=== PATIENT | female | born 1950 | race Caucasian/White ===

== ENCOUNTER → 2016-11-06 | Outpatient (CLI) | payer MEDICARE, BC ==
--- NOTE | 2016-11-07 07:51 | MM ---
Reason for exam: screening (asymptomatic). History: Patient is postmenopausal and is nulliparous. Physical Findings: A clinical breast exam by your physician is recommended on an annual basis and results should be correlated with mammographic findings. MG 3D Screening Mammo W/Cad Bilateral CC and MLO view(s) were taken. The breast tissue is almost entirely fat. Benign calcifications. No significant changes when compared with prior studies. ASSESSMENT: Benign, BI-RAD 2 RECOMMENDATION: Routine screening mammogram of both breasts in 1 year.
== END | disposition home or self-care (01) ==
LOC: RADMAMWWP 08:02
PROVIDERS: ATTEND Family Medicine
DX: Z12.31 Encounter for screening mammogram for malignant neoplasm of breast (principal); Z00.00 Encounter for general adult medical examination without abnormal findings
CPT/HCPCS: 77063; G0202

== ENCOUNTER → 2018-11-16 | Outpatient (CLI) | payer MEDICARE, BC ==
[2018-11-16 11:10] LABS: HCT 40.1 % (34.0-46.0); HGB 13.6 gm/dL (11.4-16.0); MCH 34.1 pg (25.0-35.0); MCV 100.3 fL (80.0-100.0); Mean Platelet Volume 7.5; Platelet Count 339 k/uL (150-450); RDW 13.2 % (11.5-15.5); WBC 7.2 k/uL (3.8-10.6)
[2018-11-16 11:21] LABS: Potassium 4.3 mmol/L (3.5-5.1)
== END | disposition home or self-care (01) ==
LOC: LABPAT 09:27
PROVIDERS: ATTEND Internal Medicine Clinical Cardiac Electrophysiology
DX: Z01.812 Encounter for preprocedural laboratory examination (principal); I42.0 Dilated cardiomyopathy; I50.22 Chronic systolic (congestive) heart failure
CPT/HCPCS: 80051; 82565; 82947; 84520; 85027

== ENCOUNTER 2018-11-23 14:00 | Day surgery (SDC) | payer MEDICARE, BC ==
[2018-11-19 11:22] VITALS: BMI 41.6
[~2018-11-23 14:00] MED LIST: CLINDAMYCIN 600 MG in SODIUM CHLORIDE 0.9% IRRIGATIO 250 ML IRRIGATION ONE; CLINDAMYCIN 900 MG in DEXTROSE 5% IN WATER 50 ML IVPB ONE
[2018-11-23] MEDS: SODIUM CHLORIDE 0.9% 1,000 ML IV SCH ×2 (15:08→18:53)
[2018-11-23] MEDS ORDERED: fentaNYL (PF) 50 MCG/ML 2 ML AMP ONE (15:57)
[2018-11-23] MEDS ORDERED: MIDAZOLAM 2 MG/2 ML VIAL ONE (15:57)
[2018-11-23] MEDS ORDERED: diphenhydrAMINE 50 MG/ML 1 ML VIAL ONE (15:57)
[2018-11-23] MEDS ORDERED: LIDOCAINE 1% INJ 10MG/ML (20 ML MDV) ONE (16:19)
[2018-11-23] MEDS ORDERED: LIDOCAINE 1% INJ 10MG/ML (20 ML MDV) SQ ONE ×4 (16:41→16:58)
[2018-11-23] MEDS ORDERED: ACETAMINOPHEN TAB 325 MG TAB PO PRN (17:37)
[2018-11-23] MEDS ORDERED: ACETAMINOPHEN IV (For NPO) 1,000 MG in EMPTY BAG 1 BAG IVPB ONE (18:00)
[2018-11-23] MEDS: HYDROcodone/APAP 5-325MG 1 EACH TAB PO PRN ×2 (18:46→22:49)
[2018-11-23] MEDS: LACTATED RINGERS 1,000 ML IV SCH (18:53)
[2018-11-23] MEDS: CLINDAMYCIN 900 MG in DEXTROSE 5% IN WATER 50 ML IVPB SCH ×2 (20:28)
[2018-11-23 20:53] VITALS: RESP 18
[2018-11-23] MEDS ORDERED: CLINDAMYCIN 900 MG in DEXTROSE 5% IN WATER 50 ML IVPB SCH ×2 (22:00)
[2018-11-24] MEDS: SODIUM CHLORIDE 0.9% 1,000 ML IV SCH ×2 (02:52→02:55)
[2018-11-24] MEDS: HYDROcodone/APAP 5-325MG 1 EACH TAB PO PRN ×3 (02:55→11:25)
[2018-11-24] MEDS: CLINDAMYCIN 900 MG in DEXTROSE 5% IN WATER 50 ML IVPB SCH ×6 (03:44→15:17)
--- NOTE | 2018-11-24 05:43 | CE ---
CARDIAC ELECTROPHYSIOLOGY REPORT Radha Marin is a 68-year-old female with nonischemic cardiomyopathy with a wide QRS of 144 milliseconds, left bundle branch block morphology. Patient now pacemaker dependent. In 2013, she had severe LV dysfunction, ejection fraction 25% to 30% with class 2 to 3 congestive heart failure with wide QRS and left bundle branch block morphology. A biventricular ICD was implanted with improvement in LV systolic function and heart failure. She presents for biventricular ICD generator change on account of battery at [facility], normal battery depletion. Patient was brought to the EP lab in a fasting state. Written informed consent was obtained prior to the procedure. The left shoulder area was prepped and draped as per protocol and 1% lidocaine was used for local anesthesia. A 4 cm incision was made directly over the previous surgical site and carried down to the level of the pectoralis muscle. A subfascial pocket was made hemostasis was assured. The device was removed from the pocket. A partial capsulectomy was performed. Hemostasis was assured. The new device was implanted. Leads were interrogated. The wound was closed in 3 layers and dressed per protocol. The chronic biventricular generator that was removed was a Medtronic Protecta XT MASTERCAM PROGRAMMER-D, product number [id number], serial number [id number]. The new biventricular ICD generator that was implanted was a Viva XT model number [id number], serial number [id number]. The right atrial lead was a Medtronic model #5076 serial number [id number], 52 cm in length. P waves 2.1 mV, pacing impedance 361 ohms, pacing threshold 1.5 V at 0.5 milliseconds. The RV lead was a Medtronic model #6935, 65 cm in length and serial number [id number]. The patient has no R-waves and is pacemaker dependent now. Pacing impedance 550 ohms, pacing threshold 1 V at 0.5 milliseconds. The LV lead was a unipolar lead model #4396, 78 cm in length and serial number [id number] that was placed via the middle cardiac vein up to the distal lateral vein in the 3 o'clock position ANDORRAN view. Pacing impedance 722 ohms, pacing threshold 1.5 V at 1 millisecond in V1 to RV coil. The patient tolerated the procedure well without any acute complications. The cinefluoroscopy of the leads revealed single coil ICD lead in the RV apex, a screw- in lead in the right atrial appendage and coronary sinus unipolar lead was placed via the middle cardiac vein and then passed into the distal lateral vein with LV tip in the 3 o'clock position ANDORRAN view. The patient tolerated the procedure well without any acute complications. MMODL / IJN: [id number] /
[2018-11-24] MEDS: LACTATED RINGERS 1,000 ML IV SCH (06:18)
[2018-11-24] MEDS ORDERED: METOPROLOL SUCCINATE (ER) 25 MG TAB.ER.24H PO SCH (09:00)
[2018-11-24] MEDS ORDERED: MAGNESIUM OXIDE 400 MG TAB PO SCH (09:00)
[2018-11-24] MEDS ORDERED: SPIRONOLACTONE 25 MG TAB PO SCH (09:00)
[2018-11-24] MEDS ORDERED: ASPIRIN 81 MG PO SCH (09:00)
[2018-11-24] MEDS ORDERED: CHOLECALCIFEROL 1,000 UNIT TAB PO SCH (09:00)
[2018-11-24] MEDS ORDERED: IRBESARTAN 75 MG PO SCH (09:00)
[2018-11-24 11:36] VITALS: BP 122/73; PULSE 81; TEMP 97.4
--- NOTE | 2018-11-24 11:59 | P.DS ---
Providers Attending physician: Rocco You Primary care physician: Arian Hinojosa [facility] Course: Patient is a 68-year-old female with a past medical history of nonischemic cardiomyopathy status post biventricular ICD who is device was at [facility] and presented for a generator change. Yesterday she underwent a successful generator change. She has done well overnight, no acute events. Patient seen and examined resting comfortably in bed. States her pain has been well controlled with the [place]. Denies any chest pain, shortness of breath, orthopnea or PND. She has been up walking around and using the bathroom. No dizziness or lightheadedness. She was able to eat breakfast this morning. Most recent labs from November 16 reviewed, WBC 7.2, hemoglobin 13.6, platelets 339, potassium 4.3, BUN 11, creatinine 0.88 Temperature 97.4F, pulse 81, respirations 18, blood pressure 122/73, oxygen saturation 95% on room air Patient seen and examined resting comfortably in bed, in no acute distress Lungs are clear to auscultation bilaterally, no wheezing crackles or rhonchi Heart is regular, no murmurs or rubs noted No elevated JVD or lower extremity edema Dressing over the device is clean dry and intact Impression Nonischemic cardiomyopathy status post biventricular ICD with successful generator change Plan Continue all cardiac medications Follow-up with the device clinic in 5 days follow up with Dr. You/Tiesha Powell/Xochilt Jones in 3-4 months Plan - Discharge Summary Discharge Rx Participant: Yes New Discharge Prescriptions: No Action Spironolactone [Aldactone] 12.5 mg PO DAILY Aspirin 81 mg PO DAILY Metoprolol Succinate (ER) [Toprol Xl] 12.5 mg PO DAILY Irbesartan [Avapro] 75 mg PO DAILY Cholecalciferol (Vitamin D3) [Vitamin D3] 4,000 unit PO DAILY Magnesium 164 mg PO DAILY Discharge Medication List Aspirin 81 mg PO DAILY 07/27/13 [History] Spironolactone [Aldactone] 12.5 mg PO DAILY 07/27/13 [History] Cholecalciferol (Vitamin D3) [Vitamin D3] 4,000 unit PO DAILY 11/19/18 [History] Irbesartan [Avapro] 75 mg PO DAILY 11/19/18 [History] Magnesium 164 mg PO DAILY 11/19/18 [History] Metoprolol Succinate (ER) [Toprol Xl] 12.5 mg PO DAILY 11/19/18 [History] Follow up Appointment(s)/Referral(s): Rocco You MD [STAFF PHYSICIAN] - 12/01/18 10:30 am (Device clinic follow-up in one week-- 2018 10:30 am Follow-up with Dr. You/Tiesha Powell/Xochilt Jones in 4 months-- 2018 2:45 pm) Activity/Diet/Wound Care/Special Instructions: PATIENT EDUCATION MATERIAL Instructions following a heart rhythm device generator implant. 1. Keep dressing DRY for ONE week. You may cover the area with Saran or Cling Wrap, prior to a shower. 2. The dressing will be removed after one week in the Device Clinic @ [facility]. Absorbable sutures were used to close the wound. 3. Avoid raising the [left] arm above the shoulder level. [1 week restriction] 4. Avoid arm movements, like backscratching, rubbing the head, or pulling on a cord. (1 weeks restriction) 5. Gentle range of motion movements of the shoulder, closest to the incision should be performed to avoid a frozen shoulder. (Pendulum exercises of the shoulder) 6. The opposite arm may be used freely. 7. Avoid driving for 7 days. 8. Avoid activities such as golfing, swimming, weed whacking, lifting more than 10 pounds weight, bowling, gymnastics and weight training/lifting. (2 weeks restriction) 9. Activities such as wood chopping with an axe, pull-ups in the gymnasium, power lifting, arc-welding, being close to home induction cooktops will always be a problem. In case of any problems, please call [facility], Silvia Cox, @ [phone], Attention: Device Clinic No change in medications Follow-up in the device clinic within one week and follow-up in 4 months,Follow- up with Dr. You/Tiesha Powell/Xochilt Jones Discharge Disposition: HOME SELF-CARE
== END 2018-11-24 16:59 | disposition home or self-care (01) ==
LOC: CATHEP 14:00 → 1SOBS 17:25 → CATHEP 11-24 16:59
PROVIDERS: ATTEND Internal Medicine Clinical Cardiac Electrophysiology
DX: I44.2 Atrioventricular block, complete (principal); I42.0 Dilated cardiomyopathy; Z45.02 Encounter for adjustment and management of automatic implantable cardiac defibrillator; E78.5 Hyperlipidemia, unspecified; Z87.891 Personal history of nicotine dependence; I25.10 Atherosclerotic heart disease of native coronary artery without angina pectoris; I11.0 Hypertensive heart disease with heart failure; I50.22 Chronic systolic (congestive) heart failure; I73.9 Peripheral vascular disease, unspecified; E66.01 Morbid (severe) obesity due to excess calories; Z68.41 Body mass index [BMI] 40.0-44.9, adult; Z79.82 Long term (current) use of aspirin; Z79.899 Other long term (current) drug therapy; Z88.1 Allergy status to other antibiotic agents; Z88.0 Allergy status to penicillin; Z88.7 Allergy status to serum and vaccine; Z88.8 Allergy status to other drugs, medicaments and biological substances
CPT/HCPCS: 33264; C1882; J2001

== ENCOUNTER 2019-03-19 10:55 | Observation (INO) | payer MEDICARE, BC ==
[2019-03-19 12:00] LABS: Basophils # (A) 0.2 k/uL (0-0.2); Basophils % (A) 2 %; Eosinophils # (A) 0.2 k/uL (0-0.7); Eosinophils % (A) 3 %; HCT 40.6 % (34.0-46.0); HGB 12.8 gm/dL (11.4-16.0); Lymphocytes # (A) 1.9 k/uL (1.0-4.8); Lymphocytes % (A) 29 %; MCH 31.4 pg (25.0-35.0); MCHC 31.5 g/dL (31.0-37.0); MCV 99.8 fL (80.0-100.0); Mean Platelet Volume 7.7; Monocytes # (A) 0.5 k/uL (0-1.0); Monocytes % (A) 8 %; Neutrophils # (A) 3.6 k/uL (1.3-7.7); Neutrophils % (A) 56 %; Platelet Count 327 k/uL (150-450); RBC 4.07 m/uL (3.80-5.40); RDW 13.2 % (11.5-15.5); WBC 6.4 k/uL (3.8-10.6)
[2019-03-19 12:20] LABS: African American GFR (CKD) >90 (>60 ml/min/1.73 sqM); Anion Gap 11 mmol/L; Blood Urea Nitrogen 13 mg/dL (7-17); Calcium 8.8 mg/dL (8.4-10.2); Carbon Dioxide 24 mmol/L (22-30); Chloride 106 mmol/L (98-107); Glucose 103 mg/dL (74-99); Magnesium 1.9 mg/dL (1.6-2.3); Non-African American GFR(CKD) 80 (>60 ml/min/1.73 sqM); Potassium 3.6 mmol/L (3.5-5.1); Sodium 141 mmol/L (137-145)
--- NOTE | 2019-03-19 12:29 | XR ---
EXAMINATION TYPE: XR chest 2V DATE OF EXAM: 03/19/2019 COMPARISON: Chest x-ray May 24, 2013. HISTORY: History of pacemaker placement with new shortness of breath. TECHNIQUE: Frontal and lateral views of the chest are obtained. FINDINGS: There is redemonstration of cardiomegaly with multi lead pacemaker/AICD. There is backgrou nd chronic emphysematous change. There is suspected new central vascular congestion. There is however new masslike consolidation or mass right upper lung causing mass effect or tracheal deviation to the left. There is suspected small to tiny right pleural effusion seen best on lateral view with bluntin g of the posterior costophrenic angle. Osseous structures grossly intact. IMPRESSION: I suspect CHF exacerbation as there is cardiomegaly with new mild central vascular conge stion. However of more concern is suspicious medial right upper lung mass or masslike consolidation s howing mass effect on the trachea worrisome for neoplasm. Follow-up contrast enhanced chest CT is adv ised.
[2019-03-19] MEDS ORDERED: TEMAZEPAM 15 MG CAP PO PRN (14:02)
[2019-03-19] MEDS ORDERED: NALOXONE 0.4 MG/ML 1 ML VIAL IV PRN (14:02)
[2019-03-19] MEDS ORDERED: traMADol 50 MG TAB PO PRN (14:02)
[2019-03-19] MEDS ORDERED: LORazepam 0.5 MG TAB PO PRN (14:02)
[2019-03-19] MEDS ORDERED: ONDANSETRON 4 MG/2 ML VIAL IVP PRN (14:02)
[2019-03-19] MEDS ORDERED: MAG HYDROX/AL HYDROX/SIMETH 30 ML CUP PO PRN (14:02)
--- NOTE | 2019-03-19 14:02 | ED ---
SOB HPI - General Chief Complaint: Shortness of Breath Stated Complaint: SOB,Hx of heart problems Time Seen by Provider: 03/19/19 11:19 Source: patient Mode of arrival: ambulatory Limitations: no limitations - History of Present Illness Initial Comments: Patient presents with shortness of breath. Her symptoms got worse today. She has no chest pain or belly pain or back pain. She has some slight edema in the extremities. She has no focal weakness. She has no lightheadedness or dizziness. She denies sick contacts. She denies recent travel. She denies palpitations. She wasn't doing anything when the symptoms began. - Related Data Home Medications Medication Instructions Recorded Confirmed Aspirin 81 mg PO DAILY 07/27/13 03/19/19 Spironolactone [Aldactone] 12.5 mg PO DAILY 07/27/13 03/19/19 Acetaminophen Tab [Tylenol Tab] 650 mg PO Q4H PRN 03/19/19 03/19/19 Cholecalciferol [Vitamin D3 (25 5,000 unit PO DAILY 03/19/19 03/19/19 Mcg = 1000 Iu)] Lisinopril [Zestril] 10 mg PO DAILY 03/19/19 03/19/19 Magnesium Chloride [Mag64] 64 mg PO DAILY 03/19/19 03/19/19 Metoprolol Succinate (ER) [Toprol 50 mg PO DAILY 03/19/19 03/19/19 Xl] Allergies Allergy/AdvReac Type Severity Reaction Status Date / Time losartan [Losartan] Allergy Severe Rash/Hives Verified 03/19/19 12:08 cortisone [Cortisone] Allergy flushed Verified 03/19/19 12:08 skin, depression Penicillins Allergy Rash/Hives Verified 03/19/19 12:08 lisinopril AdvReac Mild cough, Verified 03/19/19 12:08 mild rash Tetanus Vaccines and Toxoid AdvReac huge Verified 03/19/19 12:08 [Tetanus Vaccines & Toxoid] localized swelling Review of Systems ROS Statement: Those systems with pertinent positive or pertinent negative responses have been documented in the HPI. ROS Other: All systems not noted in ROS Statement are negative. Past Medical History Past Medical History: Heart Failure, Hypertension History of Any Multi-Drug Resistant Organisms: None Reported Additional Past Surgical History / Comment(s): pacemaker x 2 Past Psychological History: No Psychological Hx Reported Smoking Status: Former smoker Past Alcohol Use History: None Reported Past Drug Use History: None Reported General Exam Limitations: no limitations General appearance: alert, in no apparent distress Head exam: Present: atraumatic, normocephalic, normal inspection Eye exam: Present: normal appearance, PERRL, EOMI. Absent: scleral icterus, conjunctival injection, periorbital swelling ENT exam: Present: normal exam, mucous membranes moist Neck exam: Present: normal inspection. Absent: tenderness, meningismus, lymphadenopathy Respiratory exam: Present: respiratory distress, rales. Absent: wheezes, rhonchi, stridor Cardiovascular Exam: Present: regular rate, normal rhythm, normal heart sounds. Absent: systolic murmur, diastolic murmur, rubs, gallop, clicks GI/Abdominal exam: Present: soft, normal bowel sounds. Absent: distended, tenderness, guarding, rebound, rigid Extremities exam: Present: normal inspection, full ROM, normal capillary refill. Absent: tenderness, pedal edema, joint swelling, calf tenderness Back exam: Present: normal inspection Neurological exam: Present: alert, oriented X3, CN II-XII intact Psychiatric exam: Present: normal affect, normal mood Skin exam: Present: warm, dry, intact, normal color. Absent: rash Course Vital Signs 03/19/19 03/19/19 03/19/19 11:04 11:08 12:08 Temperature 97.5 F L Pulse Rate 71 72 Respiratory 18 20 20 Rate Blood Pressure 201/143 177/78 O2 Sat by Pulse 100 Oximetry Medical Decision Making - Medical Decision Making Patient presents with shortness of breath. Workup reveals heart failure. She will be admitted to the hospital. - Lab Data Result diagrams: 03/19/19 11:35 03/19/19 11:35 Lab Results 03/19/19 03/19/19 03/19/19 Range/Units 11:35 11:35 11:35 WBC 6.4 (3.8-10.6) k/uL RBC 4.07 (3.80-5.40) m/uL Hgb 12.8 (11.4-16.0) gm/dL Hct 40.6 (34.0-46.0) % MCV 99.8 (80.0-100.0) fL MCH 31.4 (25.0-35.0) pg MCHC 31.5 (31.0-37.0) g/dL RDW 13.2 (11.5-15.5) % Plt Count 327 (150-450) k/uL Neutrophils % 56 % Lymphocytes % 29 % Monocytes % 8 % Eosinophils % 3 % Basophils % 2 % Neutrophils # 3.6 (1.3-7.7) k/uL Lymphocytes # 1.9 (1.0-4.8) k/uL Monocytes # 0.5 (0-1.0) k/uL Eosinophils # 0.2 (0-0.7) k/uL Basophils # 0.2 (0-0.2) k/uL Sodium 141 (137-145) mmol/L Potassium 3.6 (3.5-5.1) mmol/L Chloride 106 (98-107) mmol/L Carbon Dioxide 24 (22-30) mmol/L Anion Gap 11 mmol/L BUN 13 (7-17) mg/dL Creatinine 0.76 (0.52-1.04) mg/dL Est GFR (CKD-EPI)AfAm >90 (>60 ml/min/1.73 sqM) Est GFR (CKD-EPI)NonAf 80 (>60 ml/min/1.73 sqM) Glucose 103 H (74-99) mg/dL Calcium 8.8 (8.4-10.2) mg/dL Magnesium 1.9 (1.6-2.3) mg/dL Troponin I <0.012 (0.000-0.034) ng/mL 03/19/19 14:02 Twelve-lead EKG shows ventricular rate 69 bpm, there are ventricular pacer spikes, the QRS complexes are wide, there is no ST elevation or depression, interpreted by me as electronic ventricular pacemaker paced rhythm with no evidence of acute ischemia. Disposition Clinical Impression: Congestive heart failure Disposition: ADMITTED IP TO THIS HOSP Condition: Fair Is patient prescribed a controlled substance at d/c from ED?: No Referrals: Arian Forrest MD [Primary Care Provider] - 1-2 days
[2019-03-19] MEDS ORDERED: cloNIDine HCL 0.1 MG TAB PO STA (14:39)
[2019-03-19] MEDS ORDERED: ACETAMINOPHEN TAB 325 MG TAB PO PRN (15:27)
[2019-03-19] MEDS ORDERED: FUROSEMIDE 10 MG/ML 4 ML VIAL IV STA (16:20)
--- NOTE | 2019-03-19 17:17 | P.HPIM ---
History of Present Illness H&P Date: 03/19/19 Chief Complaint: Shortness of breath 68-year-old female with PMH of systolic CHF, heart block post defibrillator and pacemaker, hypertension presents the ED for shortness of breath. Patient states that the shortness of breath started this morning she woke up. Symptoms pers isted into the afternoon and when they did not improve, was probed patient to come to the ED. Of note, patient recently received a new pacemaker with Dr. You on 11/23/2018. She states that she has been recovering from a viral URI over the past week. She denies any lower nimisha swelling. She denies any orthopnea. Patient states that usually she is able to walk from her front door to her mailbox prior to stopping catching her breath. She also reports a "rocking" sensation since receiving her pacemaker. Patient currently reports a cough productive of white sputum, related to viral URI. She denies any headache, nausea or vomiting, fever or chills, chest pain, palpitations, changes in urination or bowel habits. No changes in appetite or weight. She denies any numbness/weakness/tingling of the extremities. Of note, patient reports smoking 2 packs of cigarettes daily since her college years, recently quit 10 years ago. In the ED, blood pressure was 201/143. Vital signs were otherwise stable. CBC was unremarkable. CMP showed glucose 103. Troponins less than 0.012, EKG sh owing ventricular paced rhythm. BNP was 730, chest x-ray showing signs of CHF and possible pulmonary mass. Patient is admitted for CHF exacerbation. Review of Systems Pertinent positives and negatives as discussed in HPI, a complete review of systems was performed and all other systems are negative. Past Medical History Past Medical History: Heart Failure, Hypertension History of Any Multi-Drug Resistant Organisms: None Reported Additional Past Surgical History / Comment(s): pacemaker x 2 Past Psychological History: No Psychological Hx Reported Smoking Status: Former smoker Past Alcohol Use History: None Reported Past Drug Use History: None Reported Medications and Allergies Home Medications Medication Instructions Recorded Confirmed Type Aspirin 81 mg PO DAILY 07/27/13 03/19/19 History Spironolactone [Aldactone] 12.5 mg PO DAILY 07/27/13 03/19/19 History Acetaminophen Tab [Tylenol Tab] 650 mg PO Q4H PRN 03/19/19 03/19/19 History Cholecalciferol [Vitamin D3 (25 5,000 unit PO DAILY 03/19/19 03/19/19 History Mcg = 1000 Iu)] Lisinopril [Zestril] 10 mg PO DAILY 03/19/19 03/19/19 History Magnesium Chloride [Mag64] 64 mg PO DAILY 03/19/19 03/19/19 History Metoprolol Succinate (ER) [Toprol 50 mg PO DAILY 03/19/19 03/19/19 History Xl] Allergies Allergy/AdvReac Type Severity Reaction Status Date / Time losartan [Losartan] Allergy Severe Rash/Hives Verified 03/19/19 12:08 cortisone [Cortisone] Allergy flushed Verified 03/19/19 12:08 skin, depression Penicillins Allergy Rash/Hives Verified 03/19/19 12:08 lisinopril AdvReac Mild cough, Verified 03/19/19 12:08 mild rash Tetanus Vaccines and Toxoid AdvReac huge Verified 03/19/19 12:08 [Tetanus Vaccines & Toxoid] localized swelling Physical Exam Vitals: Vital Signs Temp Pulse Pulse Resp BP BP Pulse Ox 03/19/19 15:25 180/72 03/19/19 15:22 97.1 F L 76 20 99 03/19/19 14:36 20 03/19/19 14:00 70 20 180/84 03/19/19 13:00 64 20 177/90 03/19/19 12:08 72 20 177/78 03/19/19 11:08 20 03/19/19 11:04 97.5 F L 71 18 201/143 100 Intake and Output 03/19/19 03/19/19 03/19/19 06:59 14:59 22:59 Other: Weight 122.47 kg General: [non toxic], [no distress], [appears at stated age] Derm: [warm], [dry] Head: [atraumatic], [normocephalic], [symmetric] Eyes: [EOMI], [no lid lag], [anicteric sclera] Mouth: [no lip lesion], [mucus membranes moist] Cardiovascular: [S1S2 reg], [no murmur], [positive DP pulse bilateral], Lungs: [Good air entry bilateral], [rales present at the bases] , [no accessory muscle use] Abdominal: [soft], [ nontender to palpation], [no guarding], [no appreciable organomegaly] Ext: [no gross muscle atrophy], [1+ pitting lower extremity edema], [no contractures] Neuro: [ CN II-XI grossly intact], [no focal neuro deficits] Psych: [Alert], [oriented], [appropriate affect] Results CBC & Chem 7: 03/19/19 11:35 03/19/19 11:35 Labs: Abnormal Lab Results - Last 24 Hours (Table) 03/19/19 Range/Units 11:35 Glucose 103 H (74-99) mg/dL Assessment and Plan Assessment: Hypertensive urgency Acute on chronic systolic CHF exacerbation Lung mass seen on chest x-ray BP 201/143 while in the ED. BP currently 180/84. Plans: Restart lisinopril. Restart metoprolol. Restart Aldactone. Monitor vitals, adjust medications as necessary. As seen on chest x-ray. BNP 730. Plans: Diuresis with Lasix 40 mg IV twice a day. Restart MATT inhibitor and beta canelo. Restart Aldactone. Strict intake and take. Daily weights. Patient has a history of smoking. Suspicious for malignancy. Plans: Would order CT chest after clearing pulmonary edema. DVT prophylaxis: [SCD] Discussed with: [Patient and sister] Anticipated discharge: [1-2 days] Anticipated discharge place: [Home] A total of [45] minutes was spent on the care of this complex patient more than 50% of the time was spent in counseling and care coordination. Patient names her sister Alexia decision maker and POA if she is unable to make decisions for herself. Patient would like to be full code at this time.
[2019-03-19] MEDS: FUROSEMIDE 10 MG/ML 4 ML VIAL IV SCH (21:01)
[2019-03-19] MEDS: HYDROcodone/APAP 5-325MG 1 EACH TAB PO PRN (23:39)
[2019-03-20] MEDS: HYDROcodone/APAP 5-325MG 1 EACH TAB PO PRN ×3 (04:14→21:35)
[2019-03-20] MEDS: SPIRONOLACTONE 25 MG TAB PO SCH (08:31)
[2019-03-20] MEDS: FUROSEMIDE 10 MG/ML 4 ML VIAL IV SCH (08:31)
[2019-03-20] MEDS: LISINOPRIL 10 MG TAB PO SCH (08:33)
[2019-03-20] MEDS: ASPIRIN 81 MG PO SCH (08:33)
[2019-03-20] MEDS: METOPROLOL SUCCINATE (ER) 50 MG TAB.ER.24H PO SCH (08:33)
--- NOTE | 2019-03-20 11:25 | P.PN ---
Subjective Progress Note Date: 03/20/19 Principal diagnosis: follow up for malignant hypertension , possible lung mass patient seen and examined, she feels better today, denies any chest pain or trouble breathing , andrew any fever, chills, coughing, or hemoptysis. she has walked to the bathroom in her room, and felt ok, she feels overall her breathing has done way better since admission. Objective - Vital Signs Vital signs: Vital Signs Temp 97.4 F L 03/20/19 05:09 Pulse 70 03/20/19 05:09 Resp 16 03/20/19 07:59 BP 123/73 03/20/19 05:09 Pulse Ox 96 03/20/19 05:09 Intake & Output 03/19/19 03/20/19 03/20/19 18:59 06:59 18:59 Weight 101 kg Other: Voiding Method Toilet Toilet Toilet Bedside Commode Bedside Commode Bedside Commode # Voids 1 1 - Exam Constitutional: vital signs stable, Not in acute distress, pleasant, conversant Lungs: Clear to auscultation bilaterally, clear to percussion, normal respiratory effort no use of accessory muscles Cardiovascular: Regular rate and rhythm, no murmurs, no gallops, no rubs, no peripheral edema Gastrointestinal: Soft, no tenderness to palpation, no palpable hepatosplenomegally, bowel sounds positive, no abdominal wall hernias Extremities: No digital cyanosis or clubbing, peripheral pulses palpable and equal over bilateral radial arteries and dorsalis pedis artery, no calf muscle tenderness Psych: Alert, oriented to place, person and time, appropriate affect, intact judgment - Labs CBC & Chem 7: 03/19/19 11:35 03/19/19 11:35 Labs: Abnormal Lab Results - Last 24 Hours (Table) 03/19/19 Range/Units 11:35 Glucose 103 H (74-99) mg/dL Assessment and Plan Assessment: 68 year old female with CHF, hypertension , remote smoking, obesity comes in due to sudden onset trouble breathing , found to have elevated blood pressure and pulmonary vascular congestion. CXR was concerning for possible lung mass recommending to get enhanced CT once acute episode of pulmonary vascular congestion clears up. 03/20 patient blood pressure and breathing is doing better after IV diuresis , and resuming her blood pressure meds Plan: malignant hypertension with pulmonary vascular congestion , improving chronic systolic CHF switch to PO diuresis continue with home meds, lisinopril, metoprolol, aldactone bp better controlled today assess ambulatory oxygen saturation on room air daily weight strict I/O s cardiology input possible Lung mass seen on chest x-ray, history of smoking, quit 6 years ago Obesity consider outpatient enhanced CT , I explained to the patient our CXR findings, agrees with plan denies any unintentional weight loss, chronic cough or hemoptysis DVT PPX heparin sc tid plan for discharge home, today or tomorrow, depending on ability to ambulate and assessing oxygen requirements await cardiology input
[2019-03-20 13:42] VITALS: BMI 41.1
--- NOTE | 2019-03-20 16:20 | P.CRDCN ---
History of Present Illness Consult date: 03/20/19 Consult reason: congestive heart failure History of present illness: The patient is a 68-year-old female with past medical history of nonischemic systolic heart failure, complete heart block status post biventricular AICD, left bundle branch block, hypertension, and morbid obesity, who presents for increased shortness of breath. She states she developed pneumonia several weeks ago and felt better initially. She states that her shortness of breath came back within the last several days and she cannot perform her activities of daily living without getting extremely winded. She states she noticed that she was gaining weight, especially in her face and around her ankles. She denies any associated chest discomfort. Chest the denies any palpitations, dizziness, or lightheadedness. Upon arrival to the emergency room her blood pressure was 201/143. troponins were negative 3. BNP 730. EKG shows a biventricular paced rhythm. She is sitting comfortably in her recliner chair. She states she's been feeling much better since being diuresed. She does continue to have some shortness of breath, however continues to be weak. She denies any dizziness, lightheadedness, or chest discomfort PAST MEDICAL HISTORY: nonischemic systolic heart failure, complete heart block status post biventricular AICD, left bundle branch block, hypertension, morbid obesity REVIEW OF SYSTEMS: No fever or chills. No cough or expectoration. No diaphoresis. Patient denies headache, dizziness, blurred vision, double vision. Patient denies any stomach discomfort. No nausea, vomiting. No hematochezia. No hematemesis. Denies any black stools or blood in his stools. Denies dysuria or hematuria. No muscle weakness or numbness. PHYSICAL EXAMINATION: This is a 68-year-old obese female in no apparent distress at the time of my examination. HEENT: Head is atraumatic, normocephalic. Pupils are equal, round. Sclerae anicteric. Conjunctivae are clear. Mucous membranes of the mouth are moist. Neck is supple. There is no jugular venous distention. No carotid bruit is heard. CHEST EXAMINATION: Lungs are diminished to auscultation. No chest wall tenderness is noted on palpation or with deep breathing. HEART EXAMINATION: Heart regular rate and rhythm. S1, S2 heard. No murmurs, gallops or rub. ABDOMEN: Soft, nontender. Bowel sounds are heard. No organomegaly noted. EXTREMITIES: 2+ peripheral pulses. mild peripheral edema. no calf tenderness noted. NEUROLOGIC EXAMINATION: Patient is awake, alert and oriented x3. LABORATORY DATA: WBC 6.4, hemoglobin 12.8, hematocrit 40.6, platelet 327 sodium 141, potassium 3.6, BUN 13, creatinine 0.76, magnesium 1.9, BNP 7:30, troponins negative 3 Chest x-ray: Suspect for CHF exacerbation with mild central vascular congestion. Medial right upper lung mass noted FINAL ASSESSMENT AND PLAN: #1 shortness of breath #2 chronic systolic heart failure #3 hypertension #4 lung mass PLAN: We will continue current medication regimen including diuretics. No additional recommendations per cardiology. Thank you kindly for this consultation . Will continue to follow on an as-needed basis. Past Medical History Past Medical History: Heart Failure, Hypertension Additional Past Medical History / Comment(s): varicose veins History of Any Multi-Drug Resistant Organisms: None Reported Additional Past Surgical History / Comment(s): pacemaker x 2 Past Psychological History: No Psychological Hx Reported Smoking Status: Former smoker Past Alcohol Use History: None Reported Past Drug Use History: None Reported - Past Family History Father Family Medical History: Hypertension Additional Family Medical History / Comment(s): cardiac disorder third degree block, stroke Mother Family Medical History: Hypertension Medications and Allergies Home Medications Medication Instructions Recorded Confirmed Type Aspirin 81 mg PO DAILY 07/27/13 03/19/19 History Spironolactone [Aldactone] 12.5 mg PO DAILY 07/27/13 03/19/19 History Acetaminophen Tab [Tylenol Tab] 650 mg PO Q4H PRN 03/19/19 03/19/19 History Cholecalciferol [Vitamin D3 (25 5,000 unit PO DAILY 03/19/19 03/19/19 History Mcg = 1000 Iu)] Lisinopril [Zestril] 10 mg PO DAILY 03/19/19 03/19/19 History Magnesium Chloride [Mag64] 64 mg PO DAILY 03/19/19 03/19/19 History Metoprolol Succinate (ER) [Toprol 50 mg PO DAILY 03/19/19 03/19/19 History Xl] Allergies Allergy/AdvReac Type Severity Reaction Status Date / Time losartan [Losartan] Allergy Severe Rash/Hives Verified 03/19/19 12:08 cortisone [Cortisone] Allergy flushed Verified 03/19/19 12:08 skin, depression Penicillins Allergy Rash/Hives Verified 03/19/19 12:08 lisinopril AdvReac Mild cough, Verified 03/19/19 12:08 mild rash Tetanus Vaccines and Toxoid AdvReac huge Verified 03/19/19 12:08 [Tetanus Vaccines & Toxoid] localized swelling Physical Exam Vitals: Vital Signs Temp Pulse Resp BP Pulse Ox 03/20/19 12:15 97.6 F 69 17 143/68 94 L 03/20/19 07:59 16 03/20/19 05:09 97.4 F L 70 16 123/73 96 03/19/19 21:09 98.0 F 72 18 132/75 96 Intake and Output 03/20/19 03/20/19 03/20/19 06:59 14:59 22:59 Other: Voiding Method Toilet Toilet Bedside Commode Bedside Commode # Voids 1 Weight 119.2 kg Results 03/19/19 11:35 03/19/19 11:35 Cardiac Enzymes 03/19/19 03/19/19 Range/Units 17:53 23:01 Troponin I <0.012 <0.012 (0.000-0.034) ng/mL Current Medications Generic Name Dose Route Start Last Admin Trade Name Freq PRN Reason Stop Dose Admin Acetaminophen 650 mg 03/19/19 15:27 03/19/19 17:30 Tylenol Tab PO 650 mg Q6HR PRN Administration Mild Pain or Fever > 100.5 Hydrocodone Bitart/Acetaminophen 1 each 03/19/19 15:27 03/20/19 04:14 [place] 5-325 PO 1 each Q4HR PRN Administration SEVERE Pain Al Hydroxide/Mg Hydroxide 15 ml 03/19/19 14:02 Maalox PO Q6HR PRN Indigestion Aspirin 81 mg 03/20/19 09:00 03/20/19 08:33 Aspirin PO 81 mg DAILY DEJA Administration Furosemide 40 mg 03/20/19 16:00 Lasix PO BID@0900,1600 DEJA Heparin Sodium (Porcine) 5,000 unit 03/20/19 16:00 Heparin SQ Q8HR DEJA Lisinopril 10 mg 03/20/19 09:00 03/20/19 08:33 Zestril PO 10 mg DAILY DEJA Administration Lorazepam 0.5 mg 03/19/19 14:02 Ativan PO Q6HR PRN Anxiety Metoprolol Succinate 50 mg 03/20/19 09:00 03/20/19 08:33 Toprol Xl PO 50 mg DAILY DEJA Administration Naloxone HCl 0.2 mg 03/19/19 14:02 Narcan IV Q2M PRN Opioid Reversal Ondansetron HCl 4 mg 03/19/19 14:02 Zofran IVP Q8HR PRN Nausea And Vomiting Spironolactone 12.5 mg 03/20/19 09:00 03/20/19 08:31 Aldactone PO 12.5 mg DAILY DEJA Administration Temazepam 15 mg 03/19/19 14:02 Restoril PO HS PRN Insomnia Tramadol HCl 50 mg 03/19/19 14:02 03/20/19 08:32 Ultram PO 50 mg Q6H PRN Administration Moderate Pain Intake and Output 03/20/19 03/20/19 03/20/19 06:59 14:59 22:59 Other: Voiding Method Toilet Toilet Bedside Commode Bedside Commode # Voids 1 Weight 119.2 kg Patient Weight 03/21/19 06:59 Weight 119.2 kg 03/19/19 11:35 03/19/19 11:35
[2019-03-20] MEDS: HEPARIN SODIUM,PORCINE 5,000 UNIT/ML 1 ML VIAL SQ SCH ×2 (16:49→23:14)
[2019-03-20] MEDS: FUROSEMIDE 40 MG TAB PO SCH (16:50)
[2019-03-21] MEDS: HYDROcodone/APAP 5-325MG 1 EACH TAB PO PRN ×2 (02:59→09:13)
[2019-03-21 05:03] VITALS: TEMP 97.3
[2019-03-21 07:31] LABS: Calcium 8.9 mg/dL (8.4-10.2); Potassium 3.5 mmol/L (3.5-5.1)
[2019-03-21] MEDS: LISINOPRIL 10 MG TAB PO SCH (09:13)
[2019-03-21] MEDS: ASPIRIN 81 MG PO SCH (09:13)
[2019-03-21] MEDS: SPIRONOLACTONE 25 MG TAB PO SCH (09:14)
[2019-03-21] MEDS: METOPROLOL SUCCINATE (ER) 50 MG TAB.ER.24H PO SCH (09:14)
[2019-03-21] MEDS: HEPARIN SODIUM,PORCINE 5,000 UNIT/ML 1 ML VIAL SQ SCH (09:14)
[2019-03-21] MEDS: FUROSEMIDE 40 MG TAB PO SCH (09:14)
[2019-03-21 10:52] VITALS: BP 120/69; PULSE 80; RESP 18
--- NOTE | 2019-03-21 11:58 | P.DS ---
Providers Date of admission: 03/19/19 14:02 Attending physician: Lena Sebastian DO Consults: 03/19/19 14:04 Consult Physician Routine Consulting Provider: Priti Styles Consult Reason/Comments: heart failure Do you want consulting provider notified?: Yes Primary care physician: Arian Forrest [facility] Course: Final diagnosis upon discharge Malignant hypertension with pulmonary vascular congestion Chronic systolic CHF Right upper lung mass hospital course 68 year old female with CHF, hypertension , remote smoking, obesity comes in due to sudden onset trouble breathing , found to have elevated blood pressure and pulmonary vascular congestion. CXR was concerning for possible lung mass recommending to get enhanced CT once acute episode of pulmonary vascular co ngestion clears up. 03/20 patient blood pressure and breathing is doing better after IV diuresis , and resuming her blood pressure meds 03/21 patient seen and examined today before discharge, doing well patient blood pressure well controlled, ambulating well on room air, no SOB no chest pain. feels ready to go home. educated about checking her weight daily and using PRN lasix as needed and calling her PCP when she decides to use it cardiology cleared patient for discharge vital signs stable BP 125/69 hr 75 alert, oriented to place time and person, intact judgement , pleasant , lungs good breath sounds bilaterally, no wheezing heart regular rate and rhythm, no murmurs extremity no leg edema bilaterally, no tenderness to palpation, peripheral pulses equal and strong discharge planning possible Lung mass seen on chest x-ray, history of smoking, quit 6 years ago , consider outpatient enhanced CT , I explained to the patient our CXR findings, agrees with plan denies any unintentional weight loss, chronic cough or hemoptysis consider outpatient workup for sleep apnea follow up with CARDIO AND PCP lasix use if you gain over 3 pounds overnight , or cummulative over 3 days, take for 2 days until back to dry weight and call your PCP 40 minutes spent in discharging this patient, 50% of time spent coordinating care and education Patient Condition at Discharge: Stable Plan - Discharge Summary Discharge Rx Participant: Yes New Discharge Prescriptions: New Furosemide [Lasix] 40 mg PO DAILY PRN #30 tab PRN Reason: See Comments Continue Spironolactone [Aldactone] 12.5 mg PO DAILY Aspirin 81 mg PO DAILY Acetaminophen Tab [Tylenol] 650 mg PO Q4H PRN PRN Reason: Pain Metoprolol Succinate (ER) [Toprol XL] 50 mg PO DAILY Magnesium Chloride [Mag64] 64 mg PO DAILY Lisinopril [Zestril] 10 mg PO DAILY Cholecalciferol [Vitamin D3 (25 Mcg = 1000 Iu)] 5,000 unit PO DAILY Discharge Medication List Aspirin 81 mg PO DAILY 07/27/13 [History] Spironolactone [Aldactone] 12.5 mg PO DAILY 07/27/13 [History] Acetaminophen Tab [Tylenol] 650 mg PO Q4H PRN 03/19/19 [History] Cholecalciferol [Vitamin D3 (25 Mcg = 1000 Iu)] 5,000 unit PO DAILY 03/19/19 [History] Lisinopril [Zestril] 10 mg PO DAILY 03/19/19 [History] Magnesium Chloride [Mag64] 64 mg PO DAILY 03/19/19 [History] Metoprolol Succinate (ER) [Toprol XL] 50 mg PO DAILY 03/19/19 [History] Furosemide [Lasix] 40 mg PO DAILY PRN #30 tab 03/21/19 [Rx] Follow up Appointment(s)/Referral(s): Arian Forrest MD [Primary Care Provider] - 1-2 days Patricia Phelan MD [STAFF PHYSICIAN] - 1 Week Ambulatory/Diagnostic Orders: Miscellaneous Radiology Order [RAD.AMB] Location: None Selected Patient Instructions/Handouts: Sleep Apnea (DC), Fine Needle Aspiration Biopsy (DC) Activity/Diet/Wound Care/Special Instructions: follow up with PCP , consider performing enhanced CT of the chest in follow up for suspicious area on your CXR for a possible lung mass consider outpatient sleep study to rule out sleep apnea lasix use if you gain over 3 pounds overnight , or cummulative over 3 days, take for 2 days until back to dry weight and call your PCP Discharge Disposition: HOME SELF-CARE Plan of Treatment: follow up with PCP , consider performing enhanced CT of the chest in follow up for suspicious area on your CXR for a possible lung mass consider outpatient sleep study to rule out sleep apnea lasix use if you gain over 3 pounds overnight , or cummulative over 3 days, take for 2 days until back to dry weight and call your PCP
== END 2019-03-21 12:12 | disposition home or self-care (01) ==
LOC: EC 10:55 → 5NMEDONC 14:02
PROVIDERS: ADMIT Internal Medicine; ATTEND Internal Medicine
DX: I16.0 Hypertensive urgency (principal); I11.0 Hypertensive heart disease with heart failure; I50.22 Chronic systolic (congestive) heart failure; R09.89 Other specified symptoms and signs involving the circulatory and respiratory systems; Z87.891 Personal history of nicotine dependence; E66.9 Obesity, unspecified; R91.8 Other nonspecific abnormal finding of lung field; Z95.810 Presence of automatic (implantable) cardiac defibrillator; I45.9 Conduction disorder, unspecified; Z79.82 Long term (current) use of aspirin; Z79.899 Other long term (current) drug therapy; Z88.0 Allergy status to penicillin; Z88.7 Allergy status to serum and vaccine; Z88.8 Allergy status to other drugs, medicaments and biological substances
CPT/HCPCS: 96376 ×2; 96372 ×2; 96374; 99285; 36415; 93005; 83880; 80048 ×2; 83735; 84484; 85025; 87502; 71046; G0378 ×3; J1644 ×2; J1940 ×2; 77300; 77301; 77336; 77338; 77386; 77412; 77417

== ENCOUNTER 2019-03-26 09:28 | Inpatient (IN) | payer MEDICARE, BC ==
--- NOTE | 2019-03-26 09:51 | ED ---
General Adult HPI - General Chief complaint: Weakness Stated complaint: SOB/Weakness Time Seen by Provider: 03/26/19 09:45 Source: patient, family, RN notes reviewed Mode of arrival: ambulatory Limitations: no limitations - History of Present Illness Initial comments: Patient is a pleasant 68-year-old female presenting to the emergency Department with dyspnea and generalized weakness. Patient was in the hospital a week ago with similar symptoms diagnosed with CHF. Patient was in 3 days and left and was feeling good. Symptoms started again yesterday and today. Patient feels fatigued. Patient feels short of breath. Patient does have some chest tightness which is new. No cough. Patient admits to some mild leg swelling. Patient states she has not gained weight. Patient is on Lasix based on her daily weight and has not had Lasix for the past 3 days. - Related Data Home Medications Medication Instructions Recorded Confirmed Aspirin 81 mg PO DAILY 07/27/13 03/26/19 Spironolactone [Aldactone] 12.5 mg PO DAILY 07/27/13 03/26/19 Cholecalciferol [Vitamin D3 (25 5,000 unit PO DAILY 03/19/19 03/26/19 Mcg = 1000 Iu)] Lisinopril [Zestril] 10 mg PO DAILY 03/19/19 03/26/19 Magnesium Chloride [Mag64] 64 mg PO DAILY 03/19/19 03/26/19 Metoprolol Succinate (ER) [Toprol 50 mg PO DAILY 03/19/19 03/26/19 XL] ALPRAZolam [Xanax] 0.25 mg PO TID PRN 03/26/19 03/26/19 Furosemide [Lasix] 40 mg PO DAILY PRN 03/26/19 03/26/19 Allergies Allergy/AdvReac Type Severity Reaction Status Date / Time losartan [Losartan] Allergy Severe Rash/Hives Verified 03/26/19 10:39 cortisone [Cortisone] Allergy flushed Verified 03/26/19 10:39 skin, depression Penicillins Allergy Rash/Hives Verified 03/26/19 10:39 lisinopril AdvReac Mild cough, Verified 03/26/19 10:39 mild rash Tetanus Vaccines and Toxoid AdvReac huge Verified 03/26/19 10:39 [Tetanus Vaccines & Toxoid] localized swelling Review of Systems ROS Statement: Those systems with pertinent positive or pertinent negative responses have been documented in the HPI. ROS Other: All systems not noted in ROS Statement are negative. Constitutional: Denies: fever Eyes: Denies: eye pain ENT: Denies: ear pain Respiratory: Reports: dyspnea Cardiovascular: Reports: chest pain Endocrine: Reports: fatigue Gastrointestinal: Denies: abdominal pain Genitourinary: Denies: dysuria Musculoskeletal: Denies: back pain Skin: Denies: rash Neurological: Denies: weakness Past Medical History Past Medical History: Heart Failure, Hypertension Additional Past Medical History / Comment(s): varicose veins History of Any Multi-Drug Resistant Organisms: None Reported Additional Past Surgical History / Comment(s): pacemaker x 2 Past Psychological History: No Psychological Hx Reported Smoking Status: Former smoker Past Alcohol Use History: None Reported Past Drug Use History: None Reported - Past Family History Father Family Medical History: Hypertension Additional Family Medical History / Comment(s): cardiac disorder third degree block, stroke Mother Family Medical History: Hypertension General Exam Limitations: no limitations General appearance: alert, in no apparent distress Head exam: Present: normocephalic Eye exam: Present: normal appearance, PERRL ENT exam: Present: normal oropharynx Neck exam: Present: normal inspection Respiratory exam: Present: normal lung sounds bilaterally Cardiovascular Exam: Present: regular rate, normal rhythm GI/Abdominal exam: Present: soft. Absent: tenderness Extremities exam: Present: pedal edema (+1 bilateral). Absent: calf tenderness Neurological exam: Present: alert Psychiatric exam: Present: normal affect, normal mood Skin exam: Present: normal color Course Vital Signs 03/26/19 03/26/19 03/26/19 09:32 10:30 11:00 Temperature 98.1 F Pulse Rate 82 68 75 Respiratory 19 14 18 Rate Blood Pressure 215/83 180/83 180/85 O2 Sat by Pulse 96 96 96 Oximetry EKG Findings - EKG Comments: EKG Findings:: Paced rhythm with rate of 68. RI 134. QRS 172. QT 42. QTC 523. Superior axis. Wide QRS complex. No acute ST change. Medical Decision Making - Medical Decision Making Patient reevaluated without significant difference. Patient and family updated on results and an. Case was discussed in detail with Dr. Hackett, who will admit covering for Dr. Brice. - Lab Data Result diagrams: 03/26/19 09:48 03/26/19 09:48 Lab Results 03/26/19 03/26/19 03/26/19 Range/Units 09:48 09:48 09:48 WBC 6.7 (3.8-10.6) k/uL RBC 3.96 (3.80-5.40) m/uL Hgb 12.5 (11.4-16.0) gm/dL Hct 39.2 (34.0-46.0) % MCV 98.9 (80.0-100.0) fL MCH 31.4 (25.0-35.0) pg MCHC 31.8 (31.0-37.0) g/dL RDW 13.0 (11.5-15.5) % Plt Count 305 (150-450) k/uL Neutrophils % (Manual) 72 % Lymphocytes % (Manual) 20 % Monocytes % (Manual) 6 % Eosinophils % (Manual) 1 % Basophils % (Manual) 1 % Neutrophils # (Manual) 4.82 (1.3-7.7) k/uL Lymphocytes # (Manual) 1.34 (1.0-4.8) k/uL Monocytes # (Manual) 0.40 (0-1.0) k/uL Eosinophils # (Manual) 0.07 (0-0.7) k/uL Basophils # (Manual) 0.07 (0-0.2) k/uL Nucleated RBCs 0 (0-0) /100 WBC Manual Slide Review Performed RBC Morphology Normal PT (9.0-12.0) sec INR (<1.2) APTT (22.0-30.0) sec Sodium 139 (137-145) mmol/L Potassium 3.4 L (3.5-5.1) mmol/L Chloride 104 (98-107) mmol/L Carbon Dioxide 23 (22-30) mmol/L Anion Gap 12 mmol/L BUN 9 (7-17) mg/dL Creatinine 0.84 (0.52-1.04) mg/dL Est GFR (CKD-EPI)AfAm 81 (>60 ml/min/1.73 sqM) Est GFR (CKD-EPI)NonAf 71 (>60 ml/min/1.73 sqM) Glucose 105 H (74-99) mg/dL Plasma Lactic Acid Yousif 1.4 (0.7-2.0) mmol/L Calcium 8.8 (8.4-10.2) mg/dL Total Bilirubin 0.5 (0.2-1.3) mg/dL AST 25 (14-36) U/L ALT 11 (4-34) U/L Alkaline Phosphatase 51 (38-126) U/L Creatine Kinase 91 (30-135) U/L Troponin I (0.000-0.034) ng/mL NT-Pro-B Natriuret Pep pg/mL Total Protein 8.5 H (6.3-8.2) g/dL Albumin 4.3 (3.5-5.0) g/dL 03/26/19 03/26/19 03/26/19 Range/Units 09:48 09:48 09:48 WBC (3.8-10.6) k/uL RBC (3.80-5.40) m/uL Hgb (11.4-16.0) gm/dL Hct (34.0-46.0) % MCV (80.0-100.0) fL MCH (25.0-35.0) pg MCHC (31.0-37.0) g/dL RDW (11.5-15.5) % Plt Count (150-450) k/uL Neutrophils % (Manual) % Lymphocytes % (Manual) % Monocytes % (Manual) % Eosinophils % (Manual) % Basophils % (Manual) % Neutrophils # (Manual) (1.3-7.7) k/uL Lymphocytes # (Manual) (1.0-4.8) k/uL Monocytes # (Manual) (0-1.0) k/uL Eosinophils # (Manual) (0-0.7) k/uL Basophils # (Manual) (0-0.2) k/uL Nucleated RBCs (0-0) /100 WBC Manual Slide Review RBC Morphology PT 10.0 (9.0-12.0) sec INR 1.0 (<1.2) APTT 27.4 (22.0-30.0) sec Sodium (137-145) mmol/L Potassium (3.5-5.1) mmol/L Chloride (98-107) mmol/L Carbon Dioxide (22-30) mmol/L Anion Gap mmol/L BUN (7-17) mg/dL Creatinine (0.52-1.04) mg/dL Est GFR (CKD-EPI)AfAm (>60 ml/min/1.73 sqM) Est GFR (CKD-EPI)NonAf (>60 ml/min/1.73 sqM) Glucose (74-99) mg/dL Plasma Lactic Acid Yousif (0.7-2.0) mmol/L Calcium (8.4-10.2) mg/dL Total Bilirubin (0.2-1.3) mg/dL AST (14-36) U/L ALT (4-34) U/L Alkaline Phosphatase (38-126) U/L Creatine Kinase (30-135) U/L Troponin I <0.012 (0.000-0.034) ng/mL NT-Pro-B Natriuret Pep 537 pg/mL Total Protein (6.3-8.2) g/dL Albumin (3.5-5.0) g/dL - Radiology Data Radiology results: image reviewed (Large right upper lobe mass) Disposition Clinical Impression: Dyspnea Disposition: ADMITTED IP TO THIS HOSP Is patient prescribed a controlled substance at d/c from ED?: No Referrals: Arian Forrest MD [Primary Care Provider] - 1-2 days Decision Time: 11:52
[2019-03-26 10:00] LABS: HCT 39.2 % (34.0-46.0); HGB 12.5 gm/dL (11.4-16.0); MCH 31.4 pg (25.0-35.0); MCHC 31.8 g/dL (31.0-37.0); MCV 98.9 fL (80.0-100.0); Mean Platelet Volume 7.7; Platelet Count 305 k/uL (150-450); RBC 3.96 m/uL (3.80-5.40); WBC 6.7 k/uL (3.8-10.6)
[2019-03-26 10:08] LABS: Partial Thromboplastin Time 27.4 sec (22.0-30.0)
[2019-03-26 10:19] LABS: Basophils # (M) 0.07 k/uL (0-0.2); Eosinophils # (M) 0.07 k/uL (0-0.7); Lymphocytes # (M) 1.34 k/uL (1.0-4.8); Neutrophils # (M) 4.82 k/uL (1.3-7.7); Neutrophils % (M) 72 %; Nucleated Red Blood Cells 0 /100 WBC (0-0); Total Cells Counted 100
[2019-03-26 10:21] LABS: Albumin 4.3 g/dL (3.5-5.0); Calcium 8.8 mg/dL (8.4-10.2); Potassium 3.4 mmol/L (3.5-5.1); Total Bilirubin 0.5 mg/dL (0.2-1.3); Total Protein 8.5 g/dL (6.3-8.2)
--- NOTE | 2019-03-26 10:31 | XR ---
EXAMINATION TYPE: XR chest 2V DATE OF EXAM: 03/26/2019 COMPARISON: 03/19/2019 HISTORY: Difficulty breathing TECHNIQUE: Frontal and lateral views of the chest are obtained. FINDINGS: Medial upper lung consolidation is stable from the prior. Small right pleural effusion aga in layers with associated right basilar airspace disease. Mild pulmonary vascular congestion througho ut and redemonstration of an enlarged cardiac mediastinal silhouette with multilead left-sided cardia c device. IMPRESSION: Findings are similar to 03/19/2019 with a medial right upper lobe consolidation that coul d be postobstructive atelectasis, mass, or pneumonia and small right pleural effusion with diffuse mi ld pulmonary vascular congestion.
[2019-03-26] MEDS ORDERED: RX INFO: IV CONTRAST WAS GIVEN 1 EACH MISC MISCELLANE PRN (11:58)
[2019-03-26] MEDS ORDERED: IPRATROPIUM-ALBUTEROL 3 ML NEB INHALATION STA (11:59)
[2019-03-26] MEDS ORDERED: NALOXONE 0.4 MG/ML 1 ML VIAL IV PRN (11:59)
--- NOTE | 2019-03-26 13:35 | CT ---
EXAMINATION TYPE: CT chest w con DATE OF EXAM: 03/26/2019 COMPARISON: 02/23/2013 HISTORY: Chest mass with shortness of breath CT DLP: 958.1 mGycm Automated exposure control for dose reduction was used. CONTRAST: CT scan of the chest is performed with IV Contrast, patient injected with 100 mL of Isovue 300. FINDINGS: LUNGS: Right-sided pleural effusion with basilar compressive atelectasis. The remainder of the lungs are clear. MEDIASTINUM: There is a difficult to measure mediastinal mass right paratracheal region measuring an estimated 9.6 x 8.4 x 7.0 cm. Noted are internal calcifications as well as peripheral fluid attenuati on. There is mass effect upon the adjacent trachea without obstruction. There is mass effect upon the superior vena cava with pacer leads noted. Chest wall collaterals are noted and a degree of SVC synd pablo is difficult to exclude. Thoracic aorta is of normal caliber. The heart is mildly enlarged. UPPER ABDOMEN: No significant abnormality appreciated. OTHER: No additional significant abnormality is seen. IMPRESSION: 1.There is a difficult to measure mediastinal mass right paratracheal region measuring an estimated 9 .6 x 8.4 x 7.0 cm. Noted are internal calcifications as well as peripheral fluid attenuation. There i s mass effect upon the adjacent trachea without obstruction. There is mass effect upon the superior v fredrick cava with pacer leads noted. Chest wall collaterals are noted and a degree of SVC syndrome is dif ficult to exclude.
[2019-03-26] MEDS ORDERED: FUROSEMIDE 40 MG TAB PO PRN (14:58)
--- NOTE | 2019-03-26 14:59 | P.CNPUL ---
History of Present Illness Consult date: 03/26/19 Reason for consult: lung mass History of present illness: 68-year-old female patient came into the ED because of worsening shortness of breath and generalized weakness. She was in the hospital approximately a week ago with similar symptoms and she was diagnosed having CHF. During her last hospitalization was found to have a right upper lobe mass. She was asked to follow-up with pulmonary on outpatient basis regarding this problem. No further CAT scan imaging was done. The patient is coming in with symptoms of some chest tightness. No significant cough. She had increase in lower extremity swelling. She was taken Lasix on outpatient basis. Chest x-ray shows a right upper lobe mass. CAT scan of the chest was done and it showed a 9.6 x 8.4 x 7 cm mass in the right paratracheal region with some internal calcification causing some mass effect on the adjacent trachea without any obstruction. SVC still patent and there are some chest collaterals. There is some mass effect on the SVC also. Note that the patient also has history of nonischemic cardiomyopathy and she has complete heart block and she has a biventricular AICD in place and addition to hypertension and she is morbidly obese. Her left and ejection fraction is in the order of 25% had the patient has been having some on and off swelling in her face however this has not been considerable and she has been having some fullness in her head. She has also noted some swelling in the right upper extremity compared to the left. Review of Systems Constitutional: Reports fatigue, Reports weakness, Reports weight gain Eyes: denies as per HPI, denies blurred vision, denies bulging eye, denies decreased vision, denies diplopia, denies discharge, denies dry eye, denies irritation, denies itching, denies pain, denies photophobia, denies loss of peripheral vision, denies loss of vision, denies tunnel vision/blind spots Ears: deny: decreased hearing, ear discharge, earache, tinnitus Ears, nose, mouth and throat: Denies headache, Denies sore throat Breasts: absent: as per HPI, change in shape, gynecomastia, masses, nipple d ischarge, pain, skin changes, swelling Cardiovascular: Reports decreased exercise tolerance, Reports dyspnea on exertion, Reports orthopnea, Reports paroxysmal nocturnal dyspnea, Reports shortness of breath Respiratory: Reports dyspnea Integumentary: Reports as per HPI Neurological: Reports as per HPI Psychiatric: Reports as per HPI Endocrine: Reports as per HPI Hematologic/Lymphatic: Reports as per HPI Allergic/Immunologic: Reports as per HPI Past Medical History Past Medical History: Heart Failure, Hypertension Additional Past Medical History / Comment(s): varicose veins, morbid obesity, recent hospitalization for congestion heart failure, right upper lobe mass, history of pacemaker/defibrillator, history of third-degree AV block History of Any Multi-Drug Resistant Organisms: None Reported Additional Past Surgical History / Comment(s): pacemaker x 2 Past Psychological History: No Psychological Hx Reported Smoking Status: Former smoker Past Alcohol Use History: None Reported Past Drug Use History: None Reported - Past Family History Brother(s) Family Medical History: Cancer Additional Family Medical History / Comment(s): pancreatic cancer Father Family Medical History: Hypertension Additional Family Medical History / Comment(s): cardiac disorder third degree block, stroke Mother Family Medical History: Hypertension Medications and Allergies Home Medications Medication Instructions Recorded Confirmed Type Aspirin 81 mg PO DAILY 07/27/13 03/26/19 History Spironolactone [Aldactone] 12.5 mg PO DAILY 07/27/13 03/26/19 History Cholecalciferol [Vitamin D3 (25 5,000 unit PO DAILY 03/19/19 03/26/19 History Mcg = 1000 Iu)] Lisinopril [Zestril] 10 mg PO DAILY 03/19/19 03/26/19 History Magnesium Chloride [Mag64] 64 mg PO DAILY 03/19/19 03/26/19 History Metoprolol Succinate (ER) [Toprol 50 mg PO DAILY 03/19/19 03/26/19 History XL] ALPRAZolam [Xanax] 0.25 mg PO TID PRN 03/26/19 03/26/19 History Furosemide [Lasix] 40 mg PO DAILY PRN 03/26/19 03/26/19 History Allergies Allergy/AdvReac Type Severity Reaction Status Date / Time losartan [Losartan] Allergy Severe Rash/Hives Verified 03/26/19 10:39 cortisone [Cortisone] Allergy flushed Verified 03/26/19 10:39 skin, depression Penicillins Allergy Rash/Hives Verified 03/26/19 10:39 lisinopril AdvReac Mild cough, Verified 03/26/19 10:39 mild rash Tetanus Vaccines and Toxoid AdvReac huge Verified 03/26/19 10:39 [Tetanus Vaccines & Toxoid] localized swelling Physical Exam Vitals: Vital Signs Temp Pulse Resp BP Pulse Ox 03/26/19 12:30 73 14 175/72 97 03/26/19 12:28 77 03/26/19 12:19 79 03/26/19 11:30 70 18 176/95 94 L 03/26/19 11:00 75 18 180/85 96 03/26/19 10:30 68 14 180/83 96 03/26/19 09:32 98.1 F 82 19 215/83 96 Intake and Output 03/25/19 03/26/19 03/26/19 22:59 06:59 14:59 Other: Weight 118.388 kg Morbidly obese, comfortable sitting up in bed nonacute distress. No dizziness and muscle breathing. Head exam was generally normal. There was no scleral icterus or corneal arcus. Mucous membranes were moist. There is some facial and head swelling Neck was supple and without jugular venous distension, thyromegaly, or carotid bruits. Carotids were easily palpable bilaterally. There was no adenopathy. The patient has significant crowding of the posterior oropharynx with a Mallampati class IV Lungs sounds are diminished specially in the right lung base. Otherwise no wheezes , rhonchi ,crackles. Cardiac exam revealed the PMI to be normally situated and sized. The rhythm was regular and no extrasystoles were noted during several minutes of auscultation. The first and second heart sounds were normal and physiologic splitting of the second heart sound was noted. There were no murmurs, rubs, clicks, or gallops. The patient has a pacer/defibrillator over the left anterior chest area Abdominal exam revealed normal bowel sounds. The abdomen was soft, non-tender, and without masses, organomegaly, or appreciable enlargement of the abdominal aorta. Organs cannot be accurately palpated as the patient is morbidly obese. Extremities revealed trace edema and there is no cyanosis or clubbing. The right upper extremity is slightly swollen compared to left. Examination of the skin revealed no evidence of significant rashes, suspicious appearing nevi or other concerning lesions. Neurologically awake and alert and there is no focal neurological deficit. Results - Laboratory Findings CBC and BMP: 03/26/19 09:48 03/26/19 09:48 ABG WBC 6.7 k/uL (3.8-10.6) 03/26/19 09:48 RBC 3.96 m/uL (3.80-5.40) 03/26/19 09:48 Hgb 12.5 gm/dL (11.4-16.0) 03/26/19 09:48 Hct 39.2 % (34.0-46.0) 03/26/19 09:48 MCV 98.9 fL (80.0-100.0) 03/26/19 09:48 MCH 31.4 pg (25.0-35.0) 03/26/19 09:48 MCHC 31.8 g/dL (31.0-37.0) 03/26/19 09:48 RDW 13.0 % (11.5-15.5) 03/26/19 09:48 Plt Count 305 k/uL (150-450) 03/26/19 09:48 Neutrophils % (Manual) 72 % 03/26/19 09:48 Lymphocytes % (Manual) 20 % 03/26/19 09:48 Monocytes % (Manual) 6 % 03/26/19 09:48 Eosinophils % (Manual) 1 % 03/26/19 09:48 Basophils % (Manual) 1 % 03/26/19 09:48 Neutrophils # (Manual) 4.82 k/uL (1.3-7.7) 03/26/19 09:48 Lymphocytes # (Manual) 1.34 k/uL (1.0-4.8) 03/26/19 09:48 Monocytes # (Manual) 0.40 k/uL (0-1.0) 03/26/19 09:48 Eosinophils # (Manual) 0.07 k/uL (0-0.7) 03/26/19 09:48 Basophils # (Manual) 0.07 k/uL (0-0.2) 03/26/19 09:48 Nucleated RBCs 0 /100 WBC (0-0) 03/26/19 09:48 Manual Slide Review Performed 03/26/19 09:48 RBC Morphology Normal 03/26/19 09:48 PT 10.0 sec (9.0-12.0) 03/26/19 09:48 INR 1.0 (<1.2) 01/31/20 09:48 APTT 27.4 sec (22.0-30.0) 03/26/19 09:48 Sodium 139 mmol/L (137-145) 03/26/19 09:48 Potassium 3.4 mmol/L (3.5-5.1) L 03/26/19 09:48 Chloride 104 mmol/L (98-107) 03/26/19 09:48 Carbon Dioxide 23 mmol/L (22-30) 03/26/19 09:48 Anion Gap 12 mmol/L 03/26/19 09:48 BUN 9 mg/dL (7-17) 03/26/19 09:48 Creatinine 0.84 mg/dL (0.52-1.04) 03/26/19 09:48 Est GFR (CKD-EPI)AfAm 81 (>60 ml/min/1.73 sqM) 03/26/19 09:48 Est GFR (CKD-EPI)NonAf 71 (>60 ml/min/1.73 sqM) 03/26/19 09:48 Glucose 105 mg/dL (74-99) H 03/26/19 09:48 Plasma Lactic Acid Yousif 1.4 mmol/L (0.7-2.0) 03/26/19 09:48 Calcium 8.8 mg/dL (8.4-10.2) 03/26/19 09:48 Total Bilirubin 0.5 mg/dL (0.2-1.3) 03/26/19 09:48 AST 25 U/L (14-36) 03/26/19 09:48 ALT 11 U/L (4-34) 03/26/19 09:48 Alkaline Phosphatase 51 U/L (38-126) 03/26/19 09:48 Creatine Kinase 91 U/L (30-135) 03/26/19 09:48 Troponin I <0.012 ng/mL (0.000-0.034) 03/26/19 09:48 NT-Pro-B Natriuret Pep 537 pg/mL 03/26/19 09:48 Total Protein 8.5 g/dL (6.3-8.2) H 03/26/19 09:48 Albumin 4.3 g/dL (3.5-5.0) 03/26/19 09:48 PT/INR, D-dimer PT 10.0 sec (9.0-12.0) 03/26/19 09:48 INR 1.0 (<1.2) 03/26/19 09:48 Abnormal lab findings: Abnormal Labs 03/26/19 09:48 Potassium 3.4 L Glucose 105 H Total Protein 8.5 H - Diagnostic Findings Chest x-ray: image reviewed CT scan - chest: image reviewed Assessment and Plan Plan: 1 large right upper lobe mass measuring 9.6x 8.4 x 7 cm in size with impending SVC syndrome. The patient has still some early swelling of the face and had and the right upper extremity. His most likely malignant. Consider underlying primary bronchogenic carcinoma. 2 nonischemic cardiomyopathy with impaired ejection fraction of 20%, the patient is post biventricular pacer/AICD placement 3 history of third-degree AV block, current rhythm is paced 4 morbid obesity 5 history of ex-smoker 6 hypertension 7 small right-sided pleural effusion Plan Admit the patient to the hospital Consult radiation oncology and medical oncology We will plan today bronchoscopy with transbronchial needle aspirate of this mass sometime either over the weekend or by Friday. I'm going to discuss this case with anesthesia. Would like to start her on the console sedation and following that may need to be intubated as the patient may have difficulties and a down flat to palpate this procedure. It final diagnosis to be established immediately as the patient has signs of impending SVC syndrome. He head elevated Utilize diuretics. We'll continue to follow.
[2019-03-26] MEDS: SODIUM CHLORIDE 0.9% 1,000 ML IV SCH (15:43)
[2019-03-26] MEDS: ACETAMINOPHEN TAB 325 MG TAB PO PRN ×2 (16:16→22:28)
--- NOTE | 2019-03-26 21:40 | P.HPIM ---
History of Present Illness H&P Date: 03/26/19 Chief Complaint: Shortness of breath History of presenting complaint: This is a pleasant 68-year-old patient of Dr. tolliver. Chronic stable medical conditions include hypertension, Darrel arthritis, varicose veins, and pacemaker for complete heart block. Patient was recently in the hospital and diagnosed with congestive heart failure treated was discharged home. Patient is found to have a lung mass that was to be followed as an outpatient. Patient states that prior to the previous admission patient had been getting short of breath and tired. Also noticed some lower extremity edema. Hence would she will suddenly feel very tired also has had a cough. Appetite is fair. No weight loss. She is also feeling of fullness in the face. Decided to come back to the ER. They noticed occasional cough. Patient is an ex-smoker. 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 Lives alone. No alcohol history. Smoked a pack and half to 2 packs a day for about 44 years. Stopped in 2012. Physical examination: VITAL SIGNS: 98.1, 82, 19, 118/83, and 6% room air GENERAL: BMI 40.9, sitting up in a chair a bit tired. EYES: Pupils equal. Conjunctiva normal. HEENT: External appearance of nose and ears normal, oral cavity grossly normal patient got prominent superficial veins on the anterior chest wall [place] the right side and the right upper extremity upper part. NECK: Prominent neck veins; masses not palpable. HEART: First and second heart sounds are normal; mild edema. LUNGS: Respiratory rate increased, decreased breath sounds. ABDOMEN: Soft, nontender, liver spleen not palpable, no masses palpable. PSYCH: Alert and oriented x3; mood and affect normal. MUSCULOSKELETAL: Evidence of OA especially in the hands NEUROLOGICAL: Cranial nerves grossly intact; no facial asymmetry, power and sensation grossly intact. LYMPHATICS: No lymph nodes palpable in the axilla and neck INVESTIGATIONS, reviewed in the clinical context: White count 6.7 hemoglobin 12.5 platelets 305 potassium 3.4 creatinine 0.84 ProBNP 537 EKG tracing personally reviewed by me-paced ventricular rhythm Chest x-ray film personally reviewed by me-shows right upper lobe mass and possible effusion, venous prominence CT chest with contrast-mediastinal mass right paratracheal region measuring 9.6 cm x 8.4 cm x 7 cm. Mass affect upon the adjacent trachea without obstruction. Also mass effect upon the superior vena cava. Chest wall collaterals are noted. 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 The baby was consulted. The character procedure bronchoscopy. We'll also consult oncology. Care was discussed with the patient question were answered. We'll also add bronchodilators. Home medications resumed. Lovenox for DVT prophyla xis. Past Medical History Past Medical History: Heart Failure, Hypertension, Osteoarthritis (OA), Pneumonia, Syncope Additional Past Medical History / Comment(s): Pt recently admitted to [facility] on 03/19/19 with malignant HTN with pulmonary vascular congestion/R upper lung mass to be followed up upon. Other hx: Nonischemic cardiomyopathy, chronic CHF, CHB with BiV AICD, bronchitis, arthritis in fingers/bilateral knees/toes/lumbar spine, tendonitis R ankle, varicosities. History of Any Multi-Drug Resistant Organisms: None Reported Past Surgical History: Pacemaker Additional Past Surgical History / Comment(s): 2013 BiV AICD/generator change 2013 cardiac cath Past Anesthesia/Blood Transfusion Reactions: Unable to Obtain Additional Past Anesthesia/Blood Transfusion Reaction / Comment(s): Pt hsa never had general or spinal anesthesia. Type of Cardiac Device: Biventricular Pacemaker, AICD Device Placement Date:: 2013 Smoking Status: Former smoker - Past Family History Brother(s) Family Medical History: Cancer Additional Family Medical History / Comment(s): pancreatic cancer Father Family Medical History: CVA/TIA, Hypertension Additional Family Medical History / Comment(s): third degree block, stroke Mother Family Medical History: Hypertension Medications and Allergies Home Medications Medication Instructions Recorded Confirmed Type Aspirin 81 mg PO DAILY 07/27/13 03/26/19 History Spironolactone [Aldactone] 12.5 mg PO DAILY 07/27/13 03/26/19 History Cholecalciferol [Vitamin D3 (25 5,000 unit PO DAILY 03/19/19 03/26/19 History Mcg = 1000 Iu)] Lisinopril [Zestril] 10 mg PO DAILY 03/19/19 03/26/19 History Magnesium Chloride [Mag64] 64 mg PO DAILY 03/19/19 03/26/19 History Metoprolol Succinate (ER) [Toprol 50 mg PO DAILY 03/19/19 03/26/19 History XL] ALPRAZolam [Xanax] 0.25 mg PO TID PRN 03/26/19 03/26/19 History Furosemide [Lasix] 40 mg PO DAILY PRN 03/26/19 03/26/19 History Allergies Allergy/AdvReac Type Severity Reaction Status Date / Time losartan [Losartan] Allergy Severe Rash/Hives Verified 03/26/19 10:39 cortisone [Cortisone] Allergy flushed Verified 03/26/19 10:39 skin, depression Penicillins Allergy Rash/Hives Verified 03/26/19 10:39 lisinopril AdvReac Mild cough, Verified 03/26/19 10:39 mild rash Tetanus Vaccines and Toxoid AdvReac huge Verified 03/26/19 10:39 [Tetanus Vaccines & Toxoid] localized swelling Physical Exam Vitals: Vital Signs Temp Pulse Pulse Resp BP BP Pulse Ox 03/26/19 21:26 97.5 F L 72 19 171/78 100 03/26/19 17:34 97.5 F L 71 17 172/75 95 03/26/19 16:38 97.5 F L 75 18 148/67 98 03/26/19 16:00 18 03/26/19 12:30 73 14 175/72 97 03/26/19 12:28 77 03/26/19 12:19 79 03/26/19 11:30 70 18 176/95 94 L 03/26/19 11:00 75 18 180/85 96 03/26/19 10:30 68 14 180/83 96 03/26/19 09:32 98.1 F 82 19 215/83 96 Intake and Output 03/26/19 03/26/19 03/26/19 06:59 14:59 22:59 Other: Voiding Method Bedside Commode Weight 118.388 kg 118.388 kg Results CBC & Chem 7: 03/26/19 09:48 03/26/19 09:48 Labs: Abnormal Lab Results - Last 24 Hours (Table) 03/26/19 Range/Units 09:48 Potassium 3.4 L (3.5-5.1) mmol/L Glucose 105 H (74-99) mg/dL Total Protein 8.5 H (6.3-8.2) g/dL Thrombosis Risk Factor Assmnt - Choose All That Apply Any of the Below Risk Factors Present?: Yes Each Factor Represents 1 point: Obesity (BMI >25), Serious lung disease incl. pneumonia (< 1month), Varicose veins Other Risk Factors: Yes Each Risk Factor Represents 2 Points: Age 61-74 years Other congenital or acquired thrombophilia - If yes, enter type in comment: No Thrombosis Risk Factor Assessment Total Risk Factor Score: 5 Thrombosis Risk Factor Assessment Level: High Risk
[2019-03-26] MEDS: ENOXAPARIN 40 MG/0.4 ML SYRINGE SQ SCH (22:23)
[2019-03-26] MEDS: ALPRAZolam 0.25 MG TAB PO PRN (22:28)
[2019-03-27] MEDS: ASPIRIN 81 MG PO SCH (09:09)
[2019-03-27] MEDS: CHOLECALCIFEROL 1,000 UNIT TAB PO SCH (09:09)
[2019-03-27] MEDS: METOPROLOL SUCCINATE (ER) 50 MG TAB.ER.24H PO SCH (09:13)
[2019-03-27] MEDS: LISINOPRIL 10 MG TAB PO SCH (09:13)
--- NOTE | 2019-03-27 10:16 | P.PN ---
Subjective Progress Note Date: 03/27/19 Today's evaluation of 03/27/2019 the patient is calm and comfortable sitting up on a chair. No significant facial swelling. No significant respiratory distress over the past 24 hours. No cough sputum production chest tightness or wheezing. The right arm is slightly more swollen compared to left. The plan is to do a bronchoscopy with transbronchial needle aspirates of the large paratracheal mass. This will be done noontime today. A consent was obtained. Procedure was explained to the patient at length. Objective - Vital Signs Vital signs: Vital Signs Temp 97.9 F 03/27/19 05:00 Pulse 77 03/27/19 05:00 Resp 18 03/27/19 05:00 BP 181/75 03/27/19 05:00 Pulse Ox 95 03/27/19 05:00 Intake & Output 03/26/19 03/27/19 03/27/19 18:59 06:59 18:59 Output Total 4 Balance -4 Weight 118.388 kg Output: Urine/Stool Mix 4 Other: Voiding Method Bedside Commode Bedside Commode # Voids 1 - Exam Morbidly obese, comfortable sitting up in bed nonacute distress. No dizziness and muscle breathing. Head exam was generally normal. There was no scleral icterus or corneal arcus. Mucous membranes were moist. There is some facial and head swelling Neck was supple and without jugular venous distension, thyromegaly, or carotid bruits. Carotids were easily palpable bilaterally. There was no adenopathy. The patient has significant crowding of the posterior oropharynx with a Mallampati class IV Lungs sounds are diminished specially in the right lung base. Otherwise no wheezes , rhonchi ,crackles. Cardiac exam revealed the PMI to be normally situated and sized. The rhythm was regular and no extrasystoles were noted during several minutes of auscultation. The first and second heart sounds were normal and physiologic splitting of the second heart sound was noted. There were no murmurs, rubs, clicks, or gallops. The patient has a pacer/defibrillator over the left anterior chest area Abdominal exam revealed normal bowel sounds. The abdomen was soft, non-tender, and without masses, organomegaly, or appreciable enlargement of the abdominal aorta. Organs cannot be accurately palpated as the patient is morbidly obese. Extremities revealed trace edema and there is no cyanosis or clubbing. The right upper extremity is slightly swollen compared to left. Examination of the skin revealed no evidence of significant rashes, suspicious appearing nevi or other concerning lesions. Neurologically awake and alert and there is no focal neurological deficit. - Labs CBC & Chem 7: 03/26/19 09:48 03/26/19 09:48 Labs: Abnormal Lab Results - Last 24 Hours (Table) 03/26/19 Range/Units 09:48 Potassium 3.4 L (3.5-5.1) mmol/L Glucose 105 H (74-99) mg/dL Total Protein 8.5 H (6.3-8.2) g/dL Assessment and Plan Plan: 1 large right upper lobe mass measuring 9.6x 8.4 x 7 cm in size with impending SVC syndrome. The patient has still some early swelling of the face and had and the right upper extremity. His most likely malignant. Consider underlying primary bronchogenic carcinoma. 2 nonischemic cardiomyopathy with impaired ejection fraction of 20%, the patient is post biventricular pacer/AICD placement 3 history of third-degree AV block, current rhythm is paced 4 morbid obesity 5 history of ex-smoker 6 hypertension 7 small right-sided pleural effusion Plan Keep the patient nothing by mouth. Bronchoscopy previous afternoon. No overt signs of SVC syndrome at this point in time although this was a concern yesterday's evaluation. Continue oral diuretics. Continue cutting around the f luids and the second IV fluids for now. Procedure was sent to the patient length and this will be done in the operating room. We'll start off with conscious sedation and we'll may switch her to intubation if the patient unable to tolerate laying down flat and or she becomes hypoxic or develops any form of upper airway obstruction and the patient is typical anatomic and clinical features of obstructive sleep apnea. Her BMI is 40.9.
[2019-03-27] MEDS ORDERED: KETAMINE 10 MG/ML 20 ML VIAL ONE (13:21)
[2019-03-27] MEDS ORDERED: SUCCINYLCHOLINE CHLORIDE 100 MG/5 ML SYR IV ONE (13:21)
[2019-03-27] MEDS ORDERED: GLYCOPYRROLATE 0.2 MG/ML 2 ML VIAL ONE (13:21)
[2019-03-27] MEDS ORDERED: PROPOFOL 10 MG/ML 20 ML VIAL IV ONE (13:21)
[2019-03-27] MEDS ORDERED: MIDAZOLAM 2 MG/2 ML VIAL ONE (13:21)
[2019-03-27] MEDS ORDERED: LIDOCAINE 1% INJ 10MG/ML (20 ML MDV) ONE (13:21)
[2019-03-27] MEDS ORDERED: IV FLUID CONTINUATION 700 ML IV ONE (13:26)
--- NOTE | 2019-03-27 14:29 | P.PCN ---
Date of Procedure: 03/27/19 Preoperative Diagnosis: Paratracheal mass Postoperative Diagnosis: Right paratracheal/ upper lobe mass Procedure(s) Performed: Bronchoscopy, transbronchial needle aspirate of paratracheal mass Anesthesia: WAYLON Surgeon: Patricia Phelan Power Sweeper Operator #1: Ana Luisa Evangelista Estimated Blood Loss (ml): 0 Pathology: other Condition: stable Disposition: floor Operative Findings: This patient had the procedure done and the operating room. The patient was intubated by anesthesia utilizing a #8 for a check into. After intubation, the flexible bronchoscope was inserted through the orotracheal tube and the procedure was completed as the patient was being oxygenated and ventilated. An adapter was attached orotracheal tube and the flexible bronchoscope was advanced to the lower trachea. The tip of the ET tube was positioned in the mid trachea. Distal trachea was slightly compressed extrinsically mainly over the anterolateral wall. Airway inspection was done. Airways were patent including distal trachea, bilateral mainstem bronchi, right upper lobe bronchus regular lobe bronchus and right lower lobe bronchus left upper lobe bronchus and left lower lobe bronchus. No endobronchial tumors abnormalities identified. The various segments of the right upper lobe were extrinsically compressed. At this point in time, the bronchoscope was moved to the distal trachea and using an 19- gauge histology the transbronchial needle aspirate of the right paratracheal mass was done. A total of 4 passes were taken. No complications. No bleeding. Bronchoscope was removed. The patient was extubated and transferred recovery in stable condition. The patient remained hemodynamically stable throughout the procedure.
[2019-03-27] MEDS: SPIRONOLACTONE 25 MG TAB PO SCH (16:59)
[2019-03-27] MEDS: SODIUM CHLORIDE 0.9% 1,000 ML IV SCH (17:00)
--- NOTE | 2019-03-27 19:33 | P.PN ---
Progress Note - Text Progress Note Date: 03/27/19 Chief Complaint: Shortness of breath Interval history: This is a pleasant 68-year-old patient of Dr. tolliver. Chronic stable medical conditions include hypertension, Darrel arthritis, varicose veins, and pacemaker for complete heart block. Patient was recently in the hospital and diagnosed with congestive heart failure treated was discharged home. Patient is found to have a lung mass that was to be followed as an outpatient. Patient states that prior to the previous admission patient had been getting short of breath and tired. Also noticed some lower extremity edema. Hence would she will suddenly feel very tired also has had a cough. Appetite is fair. No weight loss. She is also feeling of fullness in the face. Decided to come back to the ER. They noticed occasional cough. Patient is an ex-smoker. Today-soft the patient this morning. Pending bronchoscopy. No new issues Review of systems: Was done for constitutional, cardiovascular, GI, pulmonary. relevant finding as above Active Medications Acetaminophen (Tylenol Tab) 650 mg PO Q4HR PRN PRN Reason: Fever and/ or Pain Last Admin: 03/26/19 22:28 Dose: 650 mg Documented by: Alprazolam (Xanax) 0.25 mg PO TID PRN PRN Reason: Anxiety Last Admin: 03/26/19 22:28 Dose: 0.25 mg Documented by: Aspirin (Aspirin) 81 mg PO DAILY [facility] Last Admin: 03/27/19 09:09 Dose: Not Given Documented by: Cholecalciferol (Vitamin D3 (25 Mcg = 1000 Iu)) 5,000 unit PO DAILY [facility] Last Admin: 03/27/19 09:09 Dose: Not Given Documented by: Enoxaparin Sodium (Lovenox) 40 mg SQ HS [facility] Last Admin: 03/26/19 22:23 Dose: 40 mg Documented by: Furosemide (Lasix) 40 mg PO DAILY PRN PRN Reason: WEIGHT GAIN Sodium Chloride (Saline 0.9%) 1,000 mls @ 20 mls/hr IV .Q24H [facility] Last Admin: 03/27/19 17:00 Dose: Not Given Documented by: Lisinopril (Zestril) 10 mg PO DAILY [facility] Last Admin: 03/27/19 09:13 Dose: 10 mg Documented by: Metoprolol Succinate (Toprol Xl) 50 mg PO DAILY [facility] Last Admin: 03/27/19 09:13 Dose: 50 mg Documented by: Miscellaneous Information (Rx Info: Iv Contrast Was Given) 1 each MISCELLANE DAILY PRN PRN Reason: Per Protocol Stop: 03/28/19 11:58 Naloxone HCl (Narcan) 0.2 mg IV Q2M PRN PRN Reason: Opioid Reversal Spironolactone (Aldactone) 12.5 mg PO DAILY [facility] Last Admin: 03/27/19 16:59 Dose: 12.5 mg Documented by: Physical examination: VITAL SIGNS: 97.5, 72, 20, 165/68, 93% on room air GENERAL: Sitting up in a chair, awake EYES: Pupils equal. Conjunctiva normal. HEENT: External appearance of nose and ears normal, oral cavity grossly normal patient got prominent superficial veins on the anterior chest wall, on the right side and the right upper extremity upper part. NECK: Prominent neck veins; masses not palpable. HEART: First and second heart sounds are normal; mild edema. LUNGS: Respiratory rate increased, decreased breath sounds. ABDOMEN: Soft, nontender, liver spleen not palpable, no masses palpable. PSYCH: Alert and oriented x3; mood and affect normal. MUSCULOSKELETAL: Evidence of OA especially in the hands INVESTIGATIONS, reviewed in the clinical context: White count 6.7 hemoglobin 12.5 platelets 305 potassium 3.4 creatinine 0.84 ProBNP 537 EKG tracing personally reviewed by me-paced ventricular rhythm Chest x-ray film personally reviewed by me-shows right upper lobe mass and possible effusion, venous prominence CT chest with contrast-mediastinal mass right paratracheal region measuring 9.6 cm x 8.4 cm x 7 cm. Mass affect upon the adjacent trachea without obstruction. Also mass effect upon the superior vena cava. Chest wall collaterals are noted. 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 Other medications to continue. Discussed with the patient. Cyst is present.
[2019-03-27] MEDS: ACETAMINOPHEN TAB 325 MG TAB PO PRN (20:04)
[2019-03-27] MEDS: ENOXAPARIN 40 MG/0.4 ML SYRINGE SQ SCH (20:04)
[2019-03-27] MEDS: BENZOCAINE/MENTHOL LOZENG 1 EACH LOZENGE MUCOUS MEM PRN (20:04)
[2019-03-28] MEDS: ACETAMINOPHEN TAB 325 MG TAB PO PRN ×5 (00:22→20:40)
[2019-03-28] MEDS: ALPRAZolam 0.25 MG TAB PO PRN ×2 (00:22→22:49)
[2019-03-28] MEDS: BENZOCAINE/MENTHOL LOZENG 1 EACH LOZENGE MUCOUS MEM PRN ×3 (03:34→20:41)
[2019-03-28] MEDS: SPIRONOLACTONE 25 MG TAB PO SCH (08:18)
[2019-03-28] MEDS: LISINOPRIL 10 MG TAB PO SCH (08:18)
[2019-03-28] MEDS: CHOLECALCIFEROL 1,000 UNIT TAB PO SCH (08:18)
[2019-03-28] MEDS: METOPROLOL SUCCINATE (ER) 50 MG TAB.ER.24H PO SCH (08:19)
[2019-03-28] MEDS: ASPIRIN 81 MG PO SCH (08:19)
--- NOTE | 2019-03-28 11:49 | P.PN ---
Subjective Progress Note Date: 03/28/19 On today's evaluation of 03/28/2019 the patient is calm and comfortable and has no specific complaints patient is resting comfortably in bed. No chest pain. No facial swelling. The right upper extremity slightly swollen. I performed a bronchoscopy on her and transbronchial needle aspirate of the anter ior/paratracheal mass was obtained. Core biopsies are obtained and the samples were sent for pathology. The patient has no hemoptysis. No significant shortness of breath. Resting comfortably in bed. Objective - Vital Signs Vital signs: Vital Signs Temp 97.8 F 03/28/19 04:59 Pulse 74 03/28/19 04:59 Resp 17 03/28/19 04:59 BP 174/70 03/28/19 04:59 Pulse Ox 93 L 03/28/19 04:59 Intake & Output 03/27/19 03/28/19 03/28/19 18:59 06:59 18:59 Intake Total 700 230 Balance 700 230 Weight 118.388 kg Intake: IV 700 Intake, IV Titration 230 Amount Sodium Chloride 0.9% 1, 230 000 ml @ 20 mls/hr IV . Q24H [facility] Rx#:[id number] Other: Voiding Method Bedside Commode # Voids 2 1 - Exam Morbidly obese, comfortable sitting up in bed nonacute distress. No dizziness and muscle breathing. Head exam was generally normal. There was no scleral icterus or corneal arcus. Mucous membranes were moist. There is some facial and head swelling Neck was supple and without jugular venous distension, thyromegaly, or carotid bruits. Carotids were easily palpable bilaterally. There was no adenopathy. The patient has significant crowding of the posterior oropharynx with a Mallampati class IV Lungs sounds are diminished specially in the right lung base. Otherwise no wheezes , rhonchi ,crackles. Cardiac exam revealed the PMI to be normally situated and sized. The rhythm was regular and no extrasystoles were noted during several minutes of auscultation. The first and second heart sounds were normal and physiologic splitting of the second heart sound was noted. There were no murmurs, rubs, clicks, or gallops. The patient has a pacer/defibrillator over the left anterior chest area Abdominal exam revealed normal bowel sounds. The abdomen was soft, non-tender, and without masses, organomegaly, or appreciable enlargement of the abdominal aorta. Organs cannot be accurately palpated as the patient is morbidly obese. Extremities revealed trace edema and there is no cyanosis or clubbing. The right upper extremity is slightly swollen compared to left. Examination of the skin revealed no evidence of significant rashes, suspicious appearing nevi or other concerning lesions. Neurologically awake and alert and there is no focal neurological deficit. - Labs CBC & Chem 7: 03/26/19 09:48 03/26/19 09:48 Assessment and Plan Plan: 1 large right upper lobe mass measuring 9.6x 8.4 x 7 cm in size with impending SVC syndrome. The patient has still some early swelling of the face and had and the right upper extremity. His most likely malignant. Consider underlying primary bronchogenic carcinoma. 2 nonischemic cardiomyopathy with impaired ejection fraction of 20%, the patient is post biventricular pacer/AICD placement 3 history of third-degree AV block, current rhythm is paced 4 morbid obesity 5 history of ex-smoker 6 hypertension 7 small right-sided pleural effusion Plan Bronchoscopy was done with transbronchial needle aspirate of the right paratracheal mass. No complications. Awaiting final pathology. No signs of facial swelling. Some early right upper extremity swelling is noted. The patient will be seen by medical oncology, radiation oncology I will continue to follow.
[2019-03-28 13:05] VITALS: RESP 20
[2019-03-28] MEDS: SODIUM CHLORIDE 0.9% 1,000 ML IV SCH (13:21)
[2019-03-28] MEDS: ENOXAPARIN 40 MG/0.4 ML SYRINGE SQ SCH (20:41)
--- NOTE | 2019-03-28 22:59 | P.PN ---
Progress Note - Text Progress Note Date: 03/28/19 Chief Complaint: Shortness of breath Interval history: This is a pleasant 68-year-old patient of Dr. tolliver. Chronic stable medical conditions include hypertension, Darrel arthritis, varicose veins, and pacemaker for complete heart block. Patient was recently in the hospital and diagnosed with congestive heart failure treated was discharged home. Patient is found to have a lung mass that was to be followed as an outpatient. Patient states that prior to the previous admission patient had been getting short of breath and tired. Also noticed some lower extremity edema. Hence would she will suddenly feel very tired also has had a cough. Appetite is fair. No weight loss. She is also feeling of fullness in the face. Decided to come back to the ER. They noticed occasional cough. Patient is an ex-smoker.status post bronchoscopy. Today-sitting up. No new issues. Breathing stable. Cyst is present. Review of systems: Was done for constitutional, cardiovascular, GI, pulmonary. relevant finding as above Physical examination: VITAL SIGNS: 98.1-62-20-163/89-95% on room air GENERAL: Sitting up in a chair, awake EYES: Pupils equal. Conjunctiva normal. HEENT: External appearance of nose and ears normal, oral cavity grossly normal patient got prominent superficial veins on the anterior chest wall, on the right side and the right upper extremity upper part. NECK: Prominent neck veins; masses not palpable. HEART: First and second heart sounds are normal; mild edema. LUNGS: Respiratory rate increased, decreased breath sounds. ABDOMEN: Soft, nontender, liver spleen not palpable, no masses palpable. PSYCH: Alert and oriented x3; mood and affect normal. MUSCULOSKELETAL: Evidence of OA especially in the hands INVESTIGATIONS, reviewed in the clinical context: White count 6.7 hemoglobin 12.5 platelets 305 potassium 3.4 creatinine 0.84 ProBNP 537 EKG tracing personally reviewed by me-paced ventricular rhythm Chest x-ray film personally reviewed by me-shows right upper lobe mass and possible effusion, venous prominence CT chest with contrast-mediastinal mass right paratracheal region measuring 9.6 cm x 8.4 cm x 7 cm. Mass affect upon the adjacent trachea without obstruction. Also mass effect upon the superior vena cava. Chest wall collaterals are noted. 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 Hopefully can be discharged home after that tomorrow. Check labs. Discussed with the patient at length.
[2019-03-29] MEDS: BENZOCAINE/MENTHOL LOZENG 1 EACH LOZENGE MUCOUS MEM PRN ×2 (03:33→11:30)
[2019-03-29] MEDS: ACETAMINOPHEN TAB 325 MG TAB PO PRN ×2 (03:33→13:23)
[2019-03-29 09:14] LABS: HCT 36.6 % (34.0-46.0); HGB 11.4 gm/dL (11.4-16.0); MCH 30.8 pg (25.0-35.0); MCHC 31.1 g/dL (31.0-37.0); MCV 99.1 fL (80.0-100.0); Mean Platelet Volume 8.2; Platelet Count 336 k/uL (150-450); RBC 3.69 m/uL (3.80-5.40); WBC 7.3 k/uL (3.8-10.6)
[2019-03-29 09:16] LABS: Calcium 8.9 mg/dL (8.4-10.2); Potassium 3.5 mmol/L (3.5-5.1)
[2019-03-29] MEDS ORDERED: RX INFO: IV CONTRAST WAS GIVEN 1 EACH MISC MISCELLANE PRN (09:41)
[2019-03-29] MEDS: METOPROLOL SUCCINATE (ER) 50 MG TAB.ER.24H PO SCH (09:45)
[2019-03-29] MEDS: CHOLECALCIFEROL 1,000 UNIT TAB PO SCH (09:45)
[2019-03-29] MEDS: ASPIRIN 81 MG PO SCH (09:45)
[2019-03-29] MEDS: LISINOPRIL 10 MG TAB PO SCH (09:45)
[2019-03-29] MEDS: SPIRONOLACTONE 25 MG TAB PO SCH (09:46)
--- NOTE | 2019-03-29 10:27 | US ---
EXAMINATION TYPE: US venous doppler duplex UE RT DATE OF EXAM: 03/29/2019 COMPARISON: NONE CLINICAL HISTORY: RUE swelling. Right arm swelling, newly diagnosed lung CA SIDE PERFORMED: Right Large pt body habitus Right Arm: Negative for DVT, pt unable to tolerate IJV compressions Grayscale, color doppler, spectral doppler imaging performed of the deep veins of the right upper ext remity. There is normal flow, compressibility and vascular waveforms. IMPRESSION: No sonographic evidence of deep venous thrombosis within the right upper extremity althou gh the internal jugular vein is slightly suboptimal as the patient could not tolerate compression. SV C syndrome is suggested on the prior chest CT of 03/26/2019 more proximally.
--- NOTE | 2019-03-29 11:12 | P.PN ---
Subjective Progress Note Date: 03/29/19 Principal diagnosis: Large right upper lobe mass with impending SVC syndrome The patient is seen today 03/29/2019 in follow-up on the regular medical floor. She is awake and alert in no acute distress. She is sitting up in a chair at the bedside. No shortness of breath, cough or congestion. No hemoptysis. She is maintaining O2 saturations in the 90s on room air. She's afebrile. White count 7.3. Hemoglobin 11.4. Sodium 140. Potassium 3.5. Creatinine 0.83. She did undergo bronchoscopy with transbronchial needle aspirate of the right paratracheal mass on 03/27/2019, pathology is pending. Suspicious for underlying primary bronchogenic carcinoma. Still some right-sided facial edema and right upper extremity edema. Negative for DVT. On Lovenox for DVT prophyl axis. Likely related to the SVC syndrome. Objective - Vital Signs Vital signs: Vital Signs Temp 97 F L 03/29/19 05:00 Pulse 73 03/29/19 05:00 Resp 20 03/29/19 05:00 BP 184/78 03/29/19 05:00 Pulse Ox 91 L 03/29/19 05:00 Intake & Output 03/28/19 03/29/19 03/29/19 18:59 06:59 18:59 Intake Total 160 590 Balance 160 590 Intake: Intake, IV Titration 160 Amount Sodium Chloride 0.9% 1, 160 000 ml @ 20 mls/hr IV . Q24H [facility] Rx#:[id number] Oral 590 Other: Voiding Method Bedside Commode # Voids 3 1 - Exam Pleasant 68-year-old female patient, on room air. Morbidly obese, comfortable sitting up in a chair at the bedside. No acute distress. No dizziness. Head exam was generally normal. There was no scleral icterus or corneal arcus. Mucous membranes were moist. There is some facial and head swelling Neck was supple and without jugular venous distension, thyromegaly, or carotid bruits. Carotids were easily palpable bilaterally. There was no adenopathy. The patient has significant crowding of the posterior oropharynx with a Mallampati class IV Lungs sounds are diminished specially in the right lung base. Otherwise no wheezes , rhonchi ,crackles. Cardiac exam revealed the PMI to be normally situated and sized. The rhythm was regular and no extrasystoles were noted during several minutes of auscultation. The first and second heart sounds were normal and physiologic splitting of the second heart sound was noted. There were no murmurs, rubs, clicks, or gallops. The patient has a pacer/defibrillator over the left anterior chest area Abdominal exam revealed normal bowel sounds. The abdomen was soft, non-tender, and without masses, organomegaly, or appreciable enlargement of the abdominal a lalit. Organs cannot be accurately palpated as the patient is morbidly obese. Extremities revealed trace edema and there is no cyanosis or clubbing. The right upper extremity is slightly swollen compared to left. Examination of the skin revealed no evidence of significant rashes, suspicious appearing nevi or other concerning lesions. Neurologically awake and alert and there is no focal neurological deficit. - Labs CBC & Chem 7: 03/29/19 08:29 03/29/19 08:29 Labs: Abnormal Lab Results - Last 24 Hours (Table) 03/29/19 03/29/19 Range/Units 08:29 08:29 RBC 3.69 L (3.80-5.40) m/uL Glucose 112 H (74-99) mg/dL Assessment and Plan Assessment: 1 large right upper lobe mass measuring 9.6 x 8.4 x 7 cm in size with impending SVC syndrome. The patient has still some early swelling of the face and had and the right upper extremity. Most likely malignant. Consider underlying primary bronchogenic carcinoma. 2 nonischemic cardiomyopathy with impaired ejection fraction of 20%, the patient is post biventricular pacer/AICD placement 3 history of third-degree AV block, current rhythm is paced 4 morbid obesity 5 history of ex-smoker 6 hypertension 7 small right-sided pleural effusion Plan The patient was seen and evaluated by Dr. Oconnell. She is currently stable from the pulmonary standpoint. On room air. Awaiting pathology of transbronchial needle aspirate of the right paratracheal mass performed on 03/27/2019. Medical and radiation oncology consulted. Home once cleared by medicine. I, the cosigning physician, performed a history & physical examination of the patient. Lungs sounds are clear, diminished in the right lung base. Maintaining good O2 saturations in the 90s on room air. I discussed the assessment and plan of care with my nurse practitioner, Ana Luisa Evangelista. I attest to the above note as dictated by her.
[2019-03-29 11:39] VITALS: BP 194/81; PULSE 70; TEMP 97.5
--- NOTE | 2019-03-29 12:23 | CDI ---
Documentation Clarification Form Date: 03/29/2019 12:12:42 PM From: Alexia WilsonHdzSAPNA torres, CCDS Admit Date: 03/28/2019 12:12:00 PM Patient Name: Radha Marin Visit Number: [id number] Discharge Date: ATTENTION: The Clinical Documentation Specialists (CDI) and [facility] Coding Staff appreciate your assistance in clarifying documentation. Please respond to the clarification below the line at the bottom and electronically sign. The CDI & [facility] Coding staff will review the response and follow-up if needed. Please note: Queries are made part of the Legal Health Record. If you have any questions, please contact the author of this message via ITS. Dr. Andrea Hackett: CHF is documented in the History & Physical: "Non ischemic cardiomyopathy, chronic CHF, CHB with BiV AICD, bronchitis, arthritis in fingers/bilateral knees/toes/lumbar spine, tendonitis R ankle, varicosities." "Non ischemic cardiomyopathy-EF 20/25 percent." History/Risk Factors: Hypertension, Pacemaker/Biventricular AICD, Osteoarthritis, Morbid obesity w/BMI >40, former smoker. Clinical Indicators: Presented to the ED with SOB, recently hospitalized & diagnosed with CHF, nos. Some lower extremity edema, very tired & a cough. Possible lung cancer pending pathology. Admission VS: T 98.1, P 82, R 19 (sob), BP 215/83^, PO 96 RA LAB: 3.4*, glucose 105^, BNP 537, total protein 8.5^ RAD: Medial RUL consolidation could be post-obstructive atelectasis, mass or pneumonia & small right pleural effusion with diffuse mild pulmonary vascular congestion. Treatment: INH Albuterol, home dose po Lasix not given. Procedure: Bronchoscopy, transbronchial needle aspirate of paratracheal mass. In your professional opinion, can you please clarify the acuity and type of CHF if known? Heart Failure ruled out Heart Failure ruled in: o Systolic Heart Failure: o Chronic o Acute on Chronic Unable to Determine Other, please specify (Last Revision: May 2017) Chronic congestive heart failure from nonischemic cardiomyopathy EF 20-25% MTDD
--- NOTE | 2019-03-29 12:51 | CT ---
EXAMINATION TYPE: CT brain w con DATE OF EXAM: 03/29/2019 COMPARISON: Lung mass and pain HISTORY: Lung mass. RUE swelling. CT DLP: 1108.4 mGycm Automated exposure control for dose reduction was used. CONTRAST: CT scan of the head is performed with IV Contrast, patient injected with 100 mL of Isovue 300. FINDINGS: There is no abnormal enhancing mass or midline shift identified. Moderate severe prominence the centr al ventricular system. Areas of low attenuation involving the white matter are nonspecific. Craniocer vical junction is maintained. Sella turcica has a normal appearance. IMPRESSION: 1. Degenerative and nonspecific white matter changes most typical of remote white matter ischemia. Gr eater central ventricular dilation could be associated with normal pressure hydrocephalus or hydrocep halus, correlate clinically. 2. No enhancing masses to suggest intracranial metastasis.
--- NOTE | 2019-03-29 18:11 | P.CONS ---
History of Present Illness - Reason for Consult Consult date: 03/29/19 lung mass Requesting physician: Trish Hanna - Chief Complaint positional dyspnea, RUE and facial swelling - History of Present Illness Mrs. Marin is a very pleasant 68-year-old female patient who we've been asked to see she was found to have a right upper lobe mass. Patient presented with 2 weeks of progressive orthopnea, symptoms worse laying on her left side, right upper extremity pain and swelling, she noticed veins in her chest protruding more/more visible, she also noted facial congestion. CT chest showed mediastinal mass, right paratracheal region, measuring about 9.6 x 8.4 x 7 cm, internal calcifications, perihilar fluid attenuation, mass effect on the trachea without obstruction, mass effect in the superior vena cava. Patient denied any weight loss, nausea, vomiting, hemoptysis, acute changes in her breathing, abdominal pain or cramping, acute changes in bowel or bladder habits. Patient has history of a pacemaker. She was a smoker, quitting 7 years ago. No personal history of cancer. Review of Systems 14 point review of systems is negative except as stated in HPI Past Medical History Past Medical History: Heart Failure, Hypertension, Osteoarthritis (OA), Pneumonia, Syncope Additional Past Medical History / Comment(s): Pt recently admitted to [facility] on 03/19/19 with malignant HTN with pulmonary vascular congestion/R upper lung mass to be followed up upon. Other hx: Nonischemic cardiomyopathy, chronic CHF, CHB with BiV AICD, bronchitis, arthritis in fingers/bilateral knees/toes/lumbar spine, tendonitis R ankle, varicosities. History of Any Multi-Drug Resistant Organisms: None Reported Past Surgical History: Pacemaker Additional Past Surgical History / Comment(s): 2013 BiV AICD/generator change 2013 cardiac cath Past Anesthesia/Blood Transfusion Reactions: Unable to Obtain Additional Past Anesthesia/Blood Transfusion Reaction / Comm: Pt hsa never had general or spinal anesthesia. Type of Cardiac Device: Biventricular Pacemaker, AICD Device Placement Date:: 2013 Smoking Status: Former smoker - Past Family History Brother(s) Family Medical History: Cancer Additional Family Medical History / Comment(s): pancreatic cancer Father Family Medical History: CVA/TIA, Hypertension Additional Family Medical History / Comment(s): third degree block, stroke Mother Family Medical History: Hypertension Medications and Allergies Home Medications Medication Instructions Recorded Confirmed Type Aspirin 81 mg PO DAILY 07/27/13 03/26/19 History Spironolactone [Aldactone] 12.5 mg PO DAILY 07/27/13 03/26/19 History Cholecalciferol [Vitamin D3 (25 5,000 unit PO DAILY 03/19/19 03/26/19 History Mcg = 1000 Iu)] Lisinopril [Zestril] 10 mg PO DAILY 03/19/19 03/26/19 History Magnesium Chloride [Mag64] 64 mg PO DAILY 03/19/19 03/26/19 History Metoprolol Succinate (ER) [Toprol 50 mg PO DAILY 03/19/19 03/26/19 History XL] ALPRAZolam [Xanax] 0.25 mg PO TID PRN 03/26/19 03/26/19 History Furosemide [Lasix] 40 mg PO DAILY PRN 03/26/19 03/26/19 History Allergies Allergy/AdvReac Type Severity Reaction Status Date / Time losartan [Losartan] Allergy Severe Rash/Hives Verified 03/26/19 10:39 cortisone [Cortisone] Allergy flushed Verified 03/26/19 10:39 skin, depression Penicillins Allergy Rash/Hives Verified 03/26/19 10:39 lisinopril AdvReac Mild cough, Verified 03/26/19 10:39 mild rash Tetanus Vaccines and Toxoid AdvReac huge Verified 03/26/19 10:39 [Tetanus Vaccines & Toxoid] localized swelling Physical Exam Vitals: Vital Signs Temp Pulse Resp BP Pulse Ox 03/29/19 11:38 97.5 F L 70 20 194/81 96 03/29/19 05:00 97 F L 73 20 184/78 91 L 03/28/19 21:00 96.7 F L 76 20 179/78 98 Intake and Output 03/29/19 03/29/19 03/29/19 06:59 14:59 22:59 Intake Total 600 Balance 600 Intake: Oral 600 Other: Voiding Method Bedside Commode Bedside Commode # Voids 1 - Constitutional General appearance: cooperative, morbidly obese, no acute distress - EENT facial swelling Eyes: anicteric sclerae, EOMI ENT: hearing grossly normal, normal oropharynx - Neck Vascular congestion noticed on the right side of the chest, there is right upper extremity swelling, some supraclavicular fullness, facial swelling Neck: no lymphadenopathy - Respiratory no stridor auscultated at sternal notch Respiratory: right: diminished, left: CTA - Cardiovascular Rhythm: regular Heart sounds: normal: S1, S2 Abnormal Heart Sounds: no systolic murmur, no diastolic murmur, no rub, no S3 Gallop, no S4 Gallop, no click, no other leg Peripheral Edema: bilateral: None - Gastrointestinal General gastrointestinal: no absent bowel sounds, no decreased bowel sounds, no distended, no hepatomegaly, no hyperactive bowel sounds, normal bowel sounds, no organomegaly, no rigid, no scaphoid, soft, no splenomegaly, no tenderness, no umbilical hernia, no ventral hernia - Integumentary Integumentary: normal - Neurologic Neurologic: CNII-XII intact - Musculoskeletal Musculoskeletal: strength equal bilaterally - Psychiatric Psychiatric: A&O x's 3, appropriate affect, intact judgment & insight Results CBC & Chem 7: 03/29/19 08:29 03/29/19 08:29 Labs: Abnormal Lab Results - Last 24 Hours (Table) 03/29/19 03/29/19 Range/Units 08:29 08:29 RBC 3.69 L (3.80-5.40) m/uL Glucose 112 H (74-99) mg/dL CT scan - chest: report reviewed Assessment and Plan (1) Mass of lung Narrative/Plan: Dr. Pugh discussed with the patient the concerning findings of the right upper lobe mass, most concerning differential is malignancy. Patient is status post biopsy. CT of the brain has been ordered (patient does have a pacemaker) for staging. Right upper extremity Doppler ordered due to swelling and SVC syndrome symptoms. PET scan will be ordered as an outpatient complete staging. Dr. Pugh reviewed positioning, not laying on the left side favoring the right side for comfort in breathing. Pt and family verbalized understanding. F/U after PET and biopsy results are available Status: Acute Priority: High Code(s): R91.8 - OTHER NONSPECIFIC ABNORMAL FINDING OF LUNG FIELD SNOMED Code(s): 006343603 Plan: attests: I preformed history and physical examination of this patient, developed impression and plan of care, discussed with dictator. I agree with the dictator's note, documented as a scribe
--- NOTE | 2019-03-29 22:10 | P.DS ---
Providers Date of admission: 03/28/19 12:12 Expected date of discharge: 03/29/19 Attending physician: Andrea Hackett Consults: 03/26/19 11:59 Consult Physician Urgent Consulting Provider: Patricia Phelan Consult Reason/Comments: Dyspnea, lung mass Do you want consulting provider notified?: Yes 03/26/19 14:57 Consult Physician Routine Consulting Provider: Torin Rubi Consult Reason/Comments: right upper lobe mass Do you want consulting provider notified?: Yes 03/26/19 14:58 Consult Physician Routine Consulting Provider: Claudio Baumann Consult Reason/Comments: right upper lobe mass Do you want consulting provider notified?: Yes Primary care physician: Arian Forrest Hospital Course: Chief Complaint: Shortness of breath Hospital course: This is a pleasant 68-year-old patient of Dr. forrest. Chronic stable medical conditions include hypertension, Darrel arthritis, varicose veins, and pacemaker for complete heart block. Patient was recently in the hospital and diagnosed with congestive heart failure treated was discharged home. Patient is found to have a lung mass that was to be followed as an outpatient. Patient states that prior to the previous admission patient had been getting short of breath and tired. Also noticed some lower extremity edema. Hence would she will suddenly feel very tired also has had a cough. Appetite is fair. No weight loss. She is also feeling of fullness in the face. Decided to come back to the ER. They noticed occasional cough. Patient is an ex-smoker.status post bronchoscopy. [place] to SVC syndrome. Status post bronchoscopy and biopsy. Results pending. Today-computed tomography scan of the brain done today negative for any metastatic cyst.. Discussed with can be from oncology team. Okay to discharge. Follow-up as an outpatient. Patient also seen by radiation oncology. Discussed with the patient. Discharge statement Consultation: Dr. jeremias pugh from oncology -Radiation oncology -Dr. Phelan and colleagues from pulmonary Physical examination: VITAL SIGNS: 97.5-70-20-96% room air GENERAL: Sitting up in a chair, awake EYES: Pupils equal. Conjunctiva normal. HEENT: External appearance of nose and ears normal, oral cavity grossly normal patient got prominent superficial veins on the anterior chest wall, on the right side and the right upper extremity upper part. NECK: Prominent neck veins; masses not palpable. HEART: First and second heart sounds are normal; mild edema. LUNGS: Respiratory rate increased, decreased breath sounds. ABDOMEN: Soft, nontender, liver spleen not palpable, no masses palpable. PSYCH: Alert and oriented x3; mood and affect normal. MUSCULOSKELETAL: Evidence of OA especially in the hands INVESTIGATIONS, reviewed in the clinical context: White count 6.7 hemoglobin 12.5 platelets 305 potassium 3.4 creatinine 0.84 ProBNP 537 EKG tracing personally reviewed by me-paced ventricular rhythm Chest x-ray film personally reviewed by me-shows right upper lobe mass and possible effusion, venous prominence CT chest with contrast-mediastinal mass right paratracheal region measuring 9.6 cm x 8.4 cm x 7 cm. Mass affect upon the adjacent trachea without obstruction. Also mass effect upon the superior vena cava. Chest wall collaterals are noted. 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, and right upper lobe lung mass likely malignancy in a patient who is a smoker for many years -Status post bronchoscopy -Essential hypertension -Pacemaker for complete heart block -Primary osteoarthritis -Bilateral lower extremity varicose veins -Morbid obesity BMI 40.9 -Possible COPD in an ex-smoker -Lung mass strongly suspicious for malignancy, pending biopsy results Disposition: Home Plan - Discharge Summary Discharge Rx Participant: No New Discharge Prescriptions: Continue Spironolactone [Aldactone] 12.5 mg PO DAILY Aspirin 81 mg PO DAILY Metoprolol Succinate (ER) [Toprol XL] 50 mg PO DAILY Magnesium Chloride [Mag64] 64 mg PO DAILY Lisinopril [Zestril] 10 mg PO DAILY Cholecalciferol [Vitamin D3 (25 Mcg = 1000 Iu)] 5,000 unit PO DAILY ALPRAZolam [Xanax] 0.25 mg PO TID PRN PRN Reason: Anxiety Furosemide [Lasix] 40 mg PO DAILY PRN PRN Reason: WEIGHT GAIN Discharge Medication List Aspirin 81 mg PO DAILY 07/27/13 [History] Spironolactone [Aldactone] 12.5 mg PO DAILY 07/27/13 [History] Cholecalciferol [Vitamin D3 (25 Mcg = 1000 Iu)] 5,000 unit PO DAILY 03/19/19 [History] Lisinopril [Zestril] 10 mg PO DAILY 03/19/19 [History] Magnesium Chloride [Mag64] 64 mg PO DAILY 03/19/19 [History] Metoprolol Succinate (ER) [Toprol XL] 50 mg PO DAILY 03/19/19 [History] ALPRAZolam [Xanax] 0.25 mg PO TID PRN 03/26/19 [History] Furosemide [Lasix] 40 mg PO DAILY PRN 03/26/19 [History] Follow up Appointment(s)/Referral(s): Wesly Pugh MD [STAFF PHYSICIAN] - 1 Week (The office will call with an appointment.) Arian Forrest MD [Primary Care Provider] - As Needed Patricia Phelan MD [STAFF PHYSICIAN] - 2 Weeks (Office is closed please call an make a follow up appointment for two weeks.) Patient Instructions/Handouts: Heart Failure (DC), Dyspnea (DC) Discharge Disposition: HOME SELF-CARE
--- NOTE | 2019-03-30 12:13 | P.CONS ---
History of Present Illness - Reason for Consult Consult date: 03/29/18 SVC syndrome - new lung ca Requesting physician: Wesly Pugh - Chief Complaint right arm swelling - History of Present Illness The patient is a 68-year-old female with a history of a recently diagnosed lung cancer (pathology pending) at least a stage III (cT4, cN2, M0). She has a significant mass in the right paratracheal region causing compression of the SVC. The patient's oncologic history began about 3 weeks ago and the patient felt she was developing a cold. She reported that she would feel very rundown, and have intermittent episodes where she felt very short of breath. She had a recent admission where she was diagnosed with congestive heart failure, but treatment for this did not significantly improve her breathing. She reports that shortly after this admission she began feeling some facial puffiness and right arm swelling. She was subsequently readmitted on March 26 secondary to increased dyspnea and weakness. Repeat chest x-ray revealed a mass within the right upper lobe which was concerning for neoplasm versus atelectasis. She underwent a CT scan of the chest with contrast which showed a 9.6 x 8.4 cm mass within the right mediastinum centered on the right paratracheal region. This had noted mass effect on the SVC, and chest wall collaterals were noted. There was a small right-sided pleural effusion. The patient underwent bronchoscopy on March 27, which showed no evidence of endobronchial disease but there was extrinsic compression of the right upper lung. Biopsy was performed at this time, and the results are still pending. Doppler of the right upper extremity revealed no DVT. The patient did undergo a CT scan of the brain which was unremarkable. She is unable to undergo MRI owing to pacemaker. The patient reports she is feeling a bit better today. She is sitting up in a chair at the time of our discussion. She still reports that she has intermittent episodes where she feels more short of breath. This seems to be positional, and he can be worse when she is lying down. She still has a sensation of pressure over the right chest wall, which is actually the most bothersome aspect of her disease at this time. Review of Systems Constitutional: Denies chills, Denies fever Eyes: denies blurred vision Ears: deny: decreased hearing Ears, nose, mouth and throat: Denies headache, Denies nasal congestion Cardiovascular: Reports chest pain Respiratory: Denies cough, Denies hemoptysis, Denies home oxygen Gastrointestinal: Denies abdominal pain, Denies diarrhea Genitourinary: Denies flank pain Integumentary: Reports color changes Neurological: Denies ataxia Psychiatric: Denies anxiety Endocrine: Reports fatigue, Denies flushing Past Medical History Past Medical History: Heart Failure, Hypertension, Osteoarthritis (OA), Pneumonia, Syncope Additional Past Medical History / Comment(s): Pt recently admitted to [facility] on 03/19/19 with malignant HTN with pulmonary vascular congestion/R upper lung mass to be followed up upon. Other hx: Nonischemic cardiomyopathy, chronic CHF, CHB with BiV AICD, bronchitis, arthritis in fingers/bilateral knees/toes/lumbar spine, tendonitis R ankle, varicosities. History of Any Multi-Drug Resistant Organisms: None Reported Past Surgical History: Pacemaker Additional Past Surgical History / Comment(s): 2013 BiV AICD/generator change 10/2018, 2013 cardiac cath Past Anesthesia/Blood Transfusion Reactions: Unable to Obtain Additional Past Anesthesia/Blood Transfusion Reaction / Comm: Pt hsa never had general or spinal anesthesia. Type of Cardiac Device: Biventricular Pacemaker, AICD Device Placement Date:: 2013 Smoking Status: Former smoker - Past Family History Brother(s) Family Medical History: Cancer Additional Family Medical History / Comment(s): pancreatic cancer Father Family Medical History: CVA/TIA, Hypertension Additional Family Medical History / Comment(s): third degree block, stroke Mother Family Medical History: Hypertension Medications and Allergies Home Medications Medication Instructions Recorded Confirmed Type Aspirin 81 mg PO DAILY 07/27/13 03/26/19 History Spironolactone [Aldactone] 12.5 mg PO DAILY 07/27/13 03/26/19 History Cholecalciferol [Vitamin D3 (25 5,000 unit PO DAILY 03/19/19 03/26/19 History Mcg = 1000 Iu)] Lisinopril [Zestril] 10 mg PO DAILY 03/19/19 03/26/19 History Magnesium Chloride [Mag64] 64 mg PO DAILY 03/19/19 03/26/19 History Metoprolol Succinate (ER) [Toprol 50 mg PO DAILY 03/19/19 03/26/19 History XL] ALPRAZolam [Xanax] 0.25 mg PO TID PRN 03/26/19 03/26/19 History Furosemide [Lasix] 40 mg PO DAILY PRN 03/26/19 03/26/19 History Allergies Allergy/AdvReac Type Severity Reaction Status Date / Time losartan [Losartan] Allergy Severe Rash/Hives Verified 03/26/19 10:39 cortisone [Cortisone] Allergy flushed Verified 03/26/19 10:39 skin, depression Penicillins Allergy Rash/Hives Verified 03/26/19 10:39 lisinopril AdvReac Mild cough, Verified 03/26/19 10:39 mild rash Tetanus Vaccines and Toxoid AdvReac huge Verified 03/26/19 10:39 [Tetanus Vaccines & Toxoid] localized swelling Physical Exam Vitals: Intake and Output 03/29/19 03/30/19 03/30/19 22:59 06:59 14:59 Other: Voiding Method Bedside Commode - Constitutional General appearance: no acute distress, obese - EENT Eyes: EOMI, PERRLA ENT: hard of hearing - Neck Neck: no lymphadenopathy - Respiratory Respiratory: right: diminished, left: CTA - Cardiovascular Rhythm: regular - Gastrointestinal General gastrointestinal: no tenderness - Integumentary Integumentary: rash (Chest-wall collaterals seen) - Musculoskeletal Musculoskeletal: generalized weakness - Psychiatric Psychiatric: A&O x's 3, appropriate affect Results CBC & Chem 7: 03/29/19 08:29 03/29/19 08:29 CT scan - chest: report reviewed, image reviewed CT Scan - head: report reviewed Assessment and Plan Plan: The patient is a 68-year-old female with a history of a recently diagnosed lung cancer (pathology pending) at least a stage III (cT4, cN2, M0). She has a significant mass in the right paratracheal region causing compression of the SVC. Of note, the patient has a history of heart block with a pacemaker in place. 1. SVC syndrome: the patient does not have any any evidence of stridor or laryngeal edema at this time. As long as she is sitting upright she is not overly symptomatic. She seems to have some positional issues which causes her to feel a sensation of chest pressure. She also feels there is swelling in the right upper extremity, and Doppler performed earlier today was unremarkable for DVT. I discussed with the patient that these symptoms are owing to her underlying lung malignancy. We do not yet have her final pathology report returned. I explained to the patient that if she has a small cell lung cancer, she may benefit from initiation of systemic therapy in the near future. I expla ined this often can result in rapid palliation. If she is found to have a non- small cell lung cancer, radiotherapy would likely be Beneficial and would be initiated rapidly. I explained that even if she is found to have distant disease, a palliative course of radiotherapy may improve her symptomatology. She is due to be discharged today, and therefore will return to our clinic for follow-up on Friday. 2. Lung cancer: pathology pending. The patient has been ordered to undergo an outpatient PET CT later this week to complete her staging. She has been given outpatient follow-up with medical oncology, and will also return to my clinic on Friday when we hope to have her final pathology results. Time with Patient: Greater than 30
--- NOTE | 2019-03-31 08:04 | CDI ---
Documentation Clarification Form Date: 03/31/2019 07:53:44 AM From: Alexia Hdz CCS, CCDS Admit Date: 03/28/2019 12:12:00 PM Patient Name: Radha Marin Visit Number: [id number] Discharge Date: 03/29/2019 05:54:00 PM ATTENTION: The Clinical Documentation Specialists (CDI) and [facility] Coding Staff appreciate your assistance in clarifying documentation. Please respond to the clarification below the line at the bottom and electronically sign. The CDI & [facility] Coding staff will review the response and follow-up if needed. Please note: Queries are made part of the Legal Health Record. If you have any questions, please contact the author of this message via ITS. Dr. Andrea Hackett: Thank you for responding the previous query submitted on 03/29 for the acuity & type of congestive heart failure, the response was: "Chronic congestive heart failure from non ischemic cardiomyopathy EF 20-25%". CHF is documented in the 03/26 History & Physical: "Non ischemic cardiomyopathy, chronic CHF, CHB with BiV AICD, bronchitis, arthritis in fingers/bilateral knees/toes/lumbar spine, tendonitis R ankle, varicosities." "Non ischemic cardiomyopathy-EF 20/25 percent." History/Risk Factors: Hypertension, Pacemaker/Biventricular AICD, Osteoarthritis, Morbid obesity w/BMI >40, former smoker. Clinical Indicators: Presented to the ED on 03/26 with SOB, recently hospitalized & diagnosed with CHF, nos. Some lower extremity edema, very tired & a cough. Possible lung cancer pending pathology. Admission VS: T 98.1, P 82, R 19 (sob), BP 215/83^, PO 96 RA Admission LAB: 3.4*, glucose 105^, BNP 537, total protein 8.5^ 03/26 CXR: Medial RUL consolidation could be post-obstructive atelectasis, mass or pneumonia & small right pleural effusion with diffuse mild pulmonary vascular congestion. Treatment: INH Albuterol, home dose po Lasix not given. Procedure: Bronchoscopy, transbronchial needle aspirate of paratracheal mass. In your professional opinion, can you please clarify the type of chronic CHF per the EF documented if known? Systolic Heart Failure: Unable to Determine Other, please specify (Last Revision: May 2017) Chronic systolic heart failure, EF not known MTDD
== END 2019-03-29 17:54 | disposition home or self-care (01) | DRG 181 ==
LOC: EC 09:28 → 5NMEDONC 11:59 → OBSVTOIN 03-28 12:12
PROVIDERS: ADMIT Hospitalist; ATTEND Hospitalist
PROC: 0BDC8ZX Extraction of Right Upper Lung Lobe, Via Natural or Artificial Opening Endoscopic, Diagnostic (ICD-10-PCS; principal; 2019-03-27 12:00)
DX: C34.11 Malignant neoplasm of upper lobe, right bronchus or lung (principal); I42.8 Other cardiomyopathies; I44.2 Atrioventricular block, complete; I87.1 Compression of vein; Z68.41 Body mass index [BMI] 40.0-44.9, adult; I50.22 Chronic systolic (congestive) heart failure; I11.0 Hypertensive heart disease with heart failure; E66.01 Morbid (severe) obesity due to excess calories; F17.200 Nicotine dependence, unspecified, uncomplicated; I83.90 Asymptomatic varicose veins of unspecified lower extremity; M15.9 Polyosteoarthritis, unspecified; M47.9 Spondylosis, unspecified; J44.9 Chronic obstructive pulmonary disease, unspecified; Z79.82 Long term (current) use of aspirin; Z79.899 Other long term (current) drug therapy; Z95.810 Presence of automatic (implantable) cardiac defibrillator; Z88.0 Allergy status to penicillin; Z88.7 Allergy status to serum and vaccine; Z88.8 Allergy status to other drugs, medicaments and biological substances; Z87.01 Personal history of pneumonia (recurrent); Z80.0 Family history of malignant neoplasm of digestive organs; Z82.3 Family history of stroke; Z82.49 Family history of ischemic heart disease and other diseases of the circulatory system
CPT/HCPCS: 31629; 36415; 70460; 71046; 71260; 80048; 80053; 82550; 83605; 83880; 84484; 85025; 85027; 85610; 85730; 88173; 88305; 88341; 88342; 93005; 99285

== ENCOUNTER → 2019-04-03 | Outpatient (CLI) | payer MEDICARE, BC ==
--- NOTE | 2019-04-04 21:45 | PE ---
Nuclear medicine PET/CT HISTORY: Right upper lobe lung carcinoma, initial Patient received 11.9 mCi F-18 FDG intravenously in delayed scanning was performed from skull base to the mid thighs. Localization and attenuation correction CT scan was performed. Correlation chest CT 03/26/2019 Neck and chest: There is no evident cervical or supraclavicular adenopathy. There is a large right up per lobe lung mass which extends from the level of the superior mediastinum located to the mediastinu m and into the right lung with encasement of the pulmonary vasculature involving the trachea aorta. T here is associated hypermetabolic uptake. There is a right pleural effusion. There is associated comp ressive atelectasis present. Stellate apical densities are present in the right upper lobe without as sociated hypermetabolic uptake. There is a small pericardial effusion. Intracardiac leads are present . Coronary calcifications are noted, there is a generator in left pectoral region. No axillary adenop athy. Abdomen shows no associated hypermetabolic uptake. No evident adrenal uptake, there is fullness of th e left adrenal gland shows low attenuation. No liver mass or retroperitoneal adenopathy. No ascites. Osseous structures are within normal limits. IMPRESSION: Large mass in the upper chest as described shows associated hypermetabolic uptake suspici ous for carcinoma.
== END | disposition home or self-care (01) ==
LOC: RADPETMAIN 14:07
PROVIDERS: ATTEND Internal Medicine Hematology & Oncology
DX: R91.1 Solitary pulmonary nodule (principal)
CPT/HCPCS: 78815; A9552

== ENCOUNTER 2019-04-19 09:50 | Day surgery (SDC) | payer MEDICARE, BC ==
[2019-04-19 10:48] LABS: Mean Platelet Volume 8.3; Platelet Count 271 k/uL (150-450)
[2019-04-19 10:53] LABS: Prothrombin Time 10.6 sec (9.0-12.0)
[2019-04-19 11:05] VITALS: RESP 18; TEMP 97.4
[2019-04-19 11:47] VITALS: BP 131/76; PULSE 76
--- NOTE | 2019-04-19 11:56 | XR ---
EXAMINATION TYPE: XR chest 1V portable DATE OF EXAM: 04/19/2019 COMPARISON: 03/26/2019 HISTORY: Status post right-sided thoracentesis. TECHNIQUE: Single frontal view of the chest is obtained. FINDINGS: There is enlargement of the right paratracheal stripe representing this patient's known ri ght upper lobe mass and adjacent atelectasis. There is near complete resolution of the right-sided pl eural effusion. Trace left pleural effusion is also seen with increasing left basilar consolidation. Cardiomediastinal silhouette is enlarged with multilead left-sided cardiac device. Mild generalized d iffuse osseous demineralization is seen. No postprocedural pneumothorax is evident. IMPRESSION: 1. No postprocedural pneumothorax. There is complete resolution of the right pleural effusion. 2. Increasing left basilar opacity that may represent atelectasis or developing pneumonia. Trace left pleural effusion is present.
--- NOTE | 2019-04-19 12:45 | US ---
EXAMINATION TYPE: US thoracentesis DATE OF EXAM: 04/19/2019 COMPARISON: NONE HISTORY: Pleural effusion. FINDINGS: Maximal barrier technique was utilized. The skin overlying a suitable pocket of fluid was localized and the overlying skin prepped and draped. Lidocaine was used for local anesthesia. Ultras ound was used with sterile technique. A 5 Armenian catheter over guide needle was advanced into the pl eural fluid collection using ultrasound guidance and the needle removed, catheter advanced. Approxim ately 1 liter(s) of serous fluid was removed. Catheter was withdrawn and hemostasis achieved. There is no immediate complication. The patient discharged in stable condition without complication. IMPRESSION: STATUS POST ULTRASOUND GUIDED THORACENTESIS, POST PROCEDURE CHEST X-RAY PENDING. THIS UT OCEDURE WAS PERFORMED BY THE UNDERSIGNED. Specimen obtained for laboratory analysis.
[2019-04-19 19:12] LABS: Total Protein, Body Fluid 3900 mg/dL
== END 2019-04-19 12:07 | disposition home or self-care (01) ==
LOC: RADPROMAIN 09:50
PROVIDERS: ATTEND Internal Medicine Hematology & Oncology
DX: C34.91 Malignant neoplasm of unspecified part of right bronchus or lung (principal); J91.8 Pleural effusion in other conditions classified elsewhere
CPT/HCPCS: 32555; 36415; 71045; 84157; 85049; 85610; 88108; 88305; 88341; 88342

== ENCOUNTER 2019-05-13 07:53 | Day surgery (SDC) | payer MEDICARE, BC ==
[2019-05-11 15:58] VITALS: BMI 38.2
[~2019-05-13 07:53] MED LIST changes: -CLINDAMYCIN 600 MG in SODIUM CHLORIDE 0.9% IRRIGATIO 250 ML IRRIGATION ONE; -CLINDAMYCIN 900 MG in DEXTROSE 5% IN WATER 50 ML IVPB ONE; +LACTATED RINGERS 1,000 ML IV SCH; +LIDOCAINE 1% (10MG/ML) FOR IV START INTRADERMA PRN; +MORPHINE SULFATE 2 MG/ML SYRINGE IV PRN; +ONDANSETRON 4 MG/2 ML VIAL IVP ONE; +ONDANSETRON 4 MG/2 ML VIAL IVP PRN; +Pre Op ABX Message 1 EACH MISC MISCELLANE ONE
[2019-05-13 08:21] VITALS: TEMP 97
--- NOTE | 2019-05-13 09:00 | P.GSHP ---
History of Present Illness H&P Date: 05/13/19 CHIEF COMPLAINT: Lung cancer HISTORY OF PRESENT ILLNESS: The patient is a 68-year-old female diagnosed with lung cancer. She needs a Mediport placement for chemotherapy. PAST MEDICAL HISTORY: See list PAST SURGICAL HISTORY: See list CURRENT MEDICATIONS: See list. ALLERGIES: See list. SOCIAL HISTORY: See list. FAMILY HISTORY: Noncontributory. REVIEW OF ORGAN SYSTEMS: CONSTITUTIONAL: Has weight loss. PHYSICAL EXAMINATION: Vital signs: Stable GENERAL: Well developed and in no acute distress. Pleasant. HEENT: No sclera icterus. Extraocular movements grossly intact. Moist buccal mucosa. Head is atraumatic, normocephalic. Hears conversational speech. No nasal drainage. NECK: Supple without lymphadenopathy. No JV distention. CHEST: Non-labored respirations and equal bilateral excursions. CARDIOVASCULAR: Regular rate and rhythm. Palpable 2+ radial pulses. ABDOMEN: Nontender. MUSCULOSKELETAL: No clubbing, cyanosis or edema. NEUROLOGIC: No focal or lateralizing signs. PSYCH: Appropriate affect. Alert and oriented to person, place and time. ASSESSMENT: 1. Lung cancer 2. Need for chemotherapeutic access. PLAN: 1. Agree with Port-A-Cath placement. Past Medical History Past Medical History: Heart Failure, Hypertension, Osteoarthritis (OA), Pneumonia, Syncope Additional Past Medical History / Comment(s): last dose radiation tx Friday05-10-19-sunburn appearance(approx 30 tx-right upper chest), admitted to [facility] on 03/19/19 with malignant HTN with pulmonary vascular congestion/R upper lung mass- malignant. 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 History of Any Multi-Drug Resistant Organisms: None Reported Past Surgical History: AICD, Heart Catheterization, Pacemaker Additional Past Surgical History / Comment(s): 2013 BiV AICD/generator change 10/2018-device in on left side, 2013 cardiac cath Past Anesthesia/Blood Transfusion Reactions: No Reported Reaction, Family Histor y of Problems w/ Anesthesia Additional Past Anesthesia/Blood Transfusion Reaction / Comment(s): sister has PONV Type of Cardiac Device: Biventricular Pacemaker, AICD Device Placement Date:: 2013 Smoking Status: Former smoker - Past Family History Brother(s) Family Medical History: Cancer Additional Family Medical History / Comment(s): pancreatic cancer Father Family Medical History: CVA/TIA, Hypertension Additional Family Medical History / Comment(s): third degree block, stroke Mother Family Medical History: Hypertension Medications and Allergies Home Medications Medication Instructions Recorded Confirmed Type Aspirin 81 mg PO DAILY 07/27/13 05/11/19 History Spironolactone [Aldactone] 12.5 mg PO QAM 07/27/13 05/11/19 History Cholecalciferol [Vitamin D3 (25 5,000 unit PO DAILY 03/19/19 05/13/19 History Mcg = 1000 Iu)] Lisinopril [Zestril] 10 mg PO QAM 03/19/19 05/11/19 History Magnesium Chloride [Mag64] 64 mg PO DAILY 03/19/19 05/13/19 History Metoprolol Succinate (ER) [Toprol 50 mg PO QAM 03/19/19 05/11/19 History XL] ALPRAZolam [Xanax] 0.25 mg PO TID PRN 03/26/19 05/11/19 History Acetaminophen [Tylenol Arthritis] 650 mg PO BID PRN 04/13/19 05/11/19 History Famotidine [Pepcid] 20 mg PO BID 05/11/19 05/11/19 History Sucralfate [Carafate] 1 gm PO ACHS 05/11/19 05/13/19 History Allergies Allergy/AdvReac Type Severity Reaction Status Date / Time losartan [Losartan] Allergy Severe Rash/Hives Verified 05/13/19 08:06 Penicillins Allergy Severe Rash/Hives Verified 05/13/19 08:06 cortisone [Cortisone] AdvReac Severe flushed Verified 05/13/19 08:06 skin, depression Tetanus Vaccines and Toxoid AdvReac Severe huge Verified 05/13/19 08:06 [Tetanus Vaccines & Toxoid] localized swelling Surgical - Exam Vital Signs Temp Pulse Resp BP Pulse Ox 97.0 F L 72 17 135/58 96 05/13/19 08:19 05/13/19 08:19 05/13/19 08:19 05/13/19 08:19 05/13/19 08:19
[2019-05-13] MEDS ORDERED: diphenhydrAMINE 50 MG/ML 1 ML VIAL IVP STA (09:02)
[2019-05-13] MEDS ORDERED: KETAMINE 10 MG/ML 20 ML VIAL ONE (09:38)
[2019-05-13] MEDS ORDERED: PROPOFOL 10 MG/ML 20 ML VIAL IV ONE (09:38)
[2019-05-13] MEDS ORDERED: fentaNYL (PF) 50 MCG/ML 2 ML AMP ONE (09:38)
[2019-05-13] MEDS ORDERED: MIDAZOLAM 2 MG/2 ML VIAL ONE (09:38)
[2019-05-13] MEDS ORDERED: LIDOCAINE 1% INJ 10MG/ML (20 ML MDV) ONE (09:38)
[2019-05-13] MEDS ORDERED: LIDOCAINE 1%-EPI 1:100,000 20 ML VIAL SQ ONE (10:08)
[2019-05-13] MEDS ORDERED: SODIUM CHLORIDE 0.9% 500 ML 500 ML with HEPARIN SODIUM,PORCINE 5,000 UNIT IV ONE ×2 (10:13)
[2019-05-13 10:51] VITALS: RESP 16
--- NOTE | 2019-05-13 11:10 | FL ---
EXAMINATION TYPE: FL guided central line placemt DATE OF EXAM: 05/13/2019 CLINICAL HISTORY: Lung cancer TECHNIQUE: Fluoroscopy. COMPARISON: None. FINDINGS: Fluoroscopic guidance was provided during Mediport catheter insertion procedure performed by Dr. Sandy. A total of 2 seconds of fluoroscopic time was utilized during the procedure and si ngle spot fluoroscopic intraoperative image is acquired. Single image acquired shows portion of right internal jugular central venous catheter along with overlying pacemaker leads. IMPRESSION: As Above.
--- NOTE | 2019-05-13 11:36 | P.OP ---
Date of Procedure: 05/13/19 Description of Procedure: SURGEON: RAE SANDY MD HRIS COORDINATOR: None. PREOPERATIVE DIAGNOSES: 1. Lung cancer, small cell cancer 2. Need for chemotherapeutic access. 3. Morbid obesity due to excess calories, BMI 38.2 4. Congestive heart failure 5. Implantable defibrillator 6. Status post radiation therapy 7. Gastroesophageal reflux disease 8. Hypertensive heart disease POSTOPERATIVE DIAGNOSES: 1. Lung cancer, small cell cancer 2. Need for chemotherapeutic access. 3. Morbid obesity due to excess calories, BMI 38.2 4. Congestive heart failure 5. Implantable defibrillator 6. Status post radiation therapy 7. Gastroesophageal reflux disease 8. Hypertensive heart disease PROCEDURES PERFORMED: 1. Ultrasound guided central venous access of the right internal jugular venous vein. 2. Fluoroscopic guidance for central venous access right internal jugular vein 2 seconds. 3. Placement of right internal jugular power port 6 Kazakh by Advaliant, Xcela Plus Port ANESTHESIA: IV sedation with local. ESTIMATED BLOOD LOSS: 2 mL. SPECIMENS REMOVED: None. COMPLICATIONS: None. INDICATIONS: The patient is a 68-year-old female recently diagnosed with lung cancer. She presents for chemotherapeutic access. Benefits and risks of surgical intervention were described including bleeding, infection, mechanical problems with his port. Informed consent was obtained. DESCRIPTION OR PROCEDURE: Patient was brought into the operating room, laid in supine position. After adequate IV sedation, the chest and right neck were prepped and draped in a standard sterile fashion including the shoulder with ChloraPrep. Timeout protocol was confirmed with the surgical team regarding the patient's name, procedure to be performed including preoperative medications for which she received IV antibiotics. Bilateral SCDs were placed. An ultrasound was used to capture views of the right internal jugular vein including right carotid artery, which was patent and without thrombus along its course. The right IJ was then localized using anesthetic for the skin. A 16 [place] needle was used to access the IJ. A guidewire was advanced into the IJ with dark nonpulsatile venous blood. Two fingerbreadths distal to the clavicle, on the lateral third, a transverse 1.5 to 2 cm incision was deepened into the skin after localizing the skin. A pocket was created for the port. The port on the back table was flushed with heparinized saline and then attached to the catheter tubing. An adapter was fastened to the actual port site over the tubing. The port easily had fit snug into the pocket. A subcutaneous tunneler was placed along the open end of the tubing and brought out through the separate stab incision. Fluoroscopic guidance confirmed no kinking along the tubing and the port site. Next, the J-wire was exchanged for a catheter sheath for which the tubing was cut to 23 cm and then advanced through the catheter sheath. The Peel-away sheath was then removed and the tubing was secured at the junction of the superior vena cava as well as the right atrium. The tubing was found to be crossed however functional. This was all done under fluoroscopic guidance 2 seconds. Easy pullback as well as return and aspiration was obtained of the port site. The skin incision was closed using layers using 3-0 Vicryl for the subcu followed by 4-0 Monocryl in a running subcuticular fashion. At the stick site this was also reapproximated using 4-0 Monocryl. The incisions were covered with Optifoam, The skin was cleansed and Exofin liquid glue was applied. Optifoam dressing was placed over the port site. A total of 20 mL of local anesthetic was placed. At the end of the procedure, needle, sponge, and instrument count was verified correct by instructor adjunct surgical technician. Heparin lock of 5 mL was placed. The patient was awoken and pain free and taken to the second stage postanesthesia care unit. The patient tolerated the procedure well. FINDINGS: 1. No thrombus encountered along the right carotid artery or internal jugular vein. 2. Access of the right internal jugular vein under ultrasound guidance. 3. Fluoroscopy of 2 seconds. Plan - Discharge Summary Discharge Rx Participant: No New Discharge Prescriptions: Continue Spironolactone [Aldactone] 12.5 mg PO QAM Aspirin 81 mg PO DAILY Metoprolol Succinate (ER) [Toprol XL] 50 mg PO QAM Magnesium Chloride [Mag64] 64 mg PO DAILY Lisinopril [Zestril] 10 mg PO QAM Cholecalciferol [Vitamin D3 (25 Mcg = 1000 Iu)] 5,000 unit PO DAILY ALPRAZolam [Xanax] 0.25 mg PO TID PRN PRN Reason: Anxiety Acetaminophen [Tylenol Arthritis] 650 mg PO BID PRN PRN Reason: Pain Sucralfate [Carafate] 1 gm PO ACHS Famotidine [Pepcid] 20 mg PO BID Discharge Medication List Aspirin 81 mg PO DAILY 07/27/13 [History] Spironolactone [Aldactone] 12.5 mg PO QAM 07/27/13 [History] Cholecalciferol [Vitamin D3 (25 Mcg = 1000 Iu)] 5,000 unit PO DAILY 03/19/19 [History] Lisinopril [Zestril] 10 mg PO QAM 03/19/19 [History] Magnesium Chloride [Mag64] 64 mg PO DAILY 03/19/19 [History] Metoprolol Succinate (ER) [Toprol XL] 50 mg PO QAM 03/19/19 [History] ALPRAZolam [Xanax] 0.25 mg PO TID PRN 03/26/19 [History] Acetaminophen [Tylenol Arthritis] 650 mg PO BID PRN 04/13/19 [History] Famotidine [Pepcid] 20 mg PO BID 05/11/19 [History] Sucralfate [Carafate] 1 gm PO ACHS 05/11/19 [History] Follow up Appointment(s)/Referral(s): Rae Sandy MD [STAFF PHYSICIAN] - As Needed Patient Instructions/Handouts: Implanted Venous Access Port (DC), How to Care for Your Implanted Venous Access Port (GEN) Activity/Diet/Wound Care/Special Instructions: Remove dressing on 05/17/2018. May shower. No bathtub soaks for 2 weeks. No wide motions of the right arm to prevent dislodge of your port for 3 weeks. EXPECT BRUISING AND SLEEP WITH 2 TO 3 PILLOWS. BRUISING RESOLVES IN 2 TO 3 WEEKS. May take Tylenol for pain. Discharge Disposition: HOME SELF-CARE
--- NOTE | 2019-05-13 11:50 | XR ---
EXAMINATION TYPE: XR chest 1V portable DATE OF EXAM: 05/13/2019 COMPARISON: Chest x-ray 04/19/2019 HISTORY: Status post Mediport insertion TECHNIQUE: Single frontal view of the chest is obtained. FINDINGS: There is been interval placement of a Mediport in the right pectoral region, right jugular approach is noted, central venous catheter tip is overlying superior vena cava. Intracardiac defibri llator leads are noted incidentally and are stable. Patient is rotated. No evident pneumothorax or pl eural effusion. Heart size is within normal limits accounting for rotation. Abnormal attenuation pers ists in the paratracheal location, right upper lobe. IMPRESSION: No evident complication status post Mediport placement.
[2019-05-13 12:08] VITALS: BP 121/62; PULSE 89
== END 2019-05-13 12:30 | disposition home or self-care (01) ==
LOC: OR 07:53
PROVIDERS: ATTEND Surgery Plastic and Reconstructive Surgery
DX: C34.11 Malignant neoplasm of upper lobe, right bronchus or lung (principal); I11.0 Hypertensive heart disease with heart failure; I50.9 Heart failure, unspecified; E66.01 Morbid (severe) obesity due to excess calories; K21.9 Gastro-esophageal reflux disease without esophagitis; M19.90 Unspecified osteoarthritis, unspecified site; I42.8 Other cardiomyopathies; M17.0 Bilateral primary osteoarthritis of knee; M19.072 Primary osteoarthritis, left ankle and foot; M19.071 Primary osteoarthritis, right ankle and foot; M19.049 Primary osteoarthritis, unspecified hand; M47.816 Spondylosis without myelopathy or radiculopathy, lumbar region; Z68.38 Body mass index [BMI] 38.0-38.9, adult; Z92.3 Personal history of irradiation; Z95.810 Presence of automatic (implantable) cardiac defibrillator; Z87.01 Personal history of pneumonia (recurrent); Z84.89 Family history of other specified conditions; Z87.891 Personal history of nicotine dependence; Z80.0 Family history of malignant neoplasm of digestive organs; Z82.49 Family history of ischemic heart disease and other diseases of the circulatory system; Z79.82 Long term (current) use of aspirin; Z79.899 Other long term (current) drug therapy; Z88.8 Allergy status to other drugs, medicaments and biological substances; Z88.0 Allergy status to penicillin; Z88.7 Allergy status to serum and vaccine
CPT/HCPCS: 77001; 71045; 36561; C1788; J2250; J1200; J1644; J0690; J2405; J2001; J3010; J1642; J2704

== ENCOUNTER → 2019-06-02 | Outpatient (CLI) | payer MEDICARE, BC ==
--- NOTE | 2019-06-02 14:39 | CT ---
EXAMINATION TYPE: CT chest wo/w con DATE OF EXAM: 06/02/2019 COMPARISON: Localization CT chest 04/03/2019 HISTORY: follow up to lung CA CT DLP: 1068.4 mGycm, Automated exposure control for dose reduction was used. CONTRAST: Performed injected with 100 mL of Isovue 300. TECHNIQUE: Axial images were obtained at 5 mm thick sections. Reconstructed images are reviewed on [employer] computer in the coronal plane. FINDINGS: Portion of the thyroid visualized is normal. There is a large mass in the superior right mediastinum. This has increased density which can be rela trisha to calcification or contrast. This measures 5.2 x 4.8 cm. Previous measurement 8.6 x 7.4 cm. Vascular calcifications within the aorta. 3 views right small pleural effusion has resolved. There are bilateral apical areas of thickening which appear to be present previously. Some of these a re within the right upper lobe. Metastatic disease is not excluded. Findings were present previously and appears stable. Example image series 4 image 12 density measuring 0.5 cm was previously 0.8 cm. A 1.2 cm lymph node may be posterior to the right main pulmonary artery, smaller than comparison. Co ronary artery calcification is present. No significant pericardial effusion is evident. The ascending aorta diameter at the level of the main pulmonary artery is 3.8 cm. The main pulmonary artery diame ter at the bifurcation is 2.[address] sections are obtained through the upper abdomen. There is thickening of the right adrenal gland measuring 2.2 cm. There is a subtle hypodensity in the posterior right upper lobe liver measuri ng 0.3 cm. Image 61 Additional ill-defined hypodensity within the superior right lobe liver measuring 0.7 cm. Image 56. IMPRESSIONS: 1. Superior right mediastinal mass is smaller than comparison. A lymph node posterior to the right ma in pulmonary artery is smaller than comparison. Some right apical areas of increased density extendin g to the apex are similar to smaller than comparison. 2. Previous pleural effusion is resolved.
== END | disposition home or self-care (01) ==
LOC: RADPROMAIN 11:14
PROVIDERS: ATTEND Radiology Radiation Oncology
DX: R22.2 Localized swelling, mass and lump, trunk (principal); J98.4 Other disorders of lung; Z87.891 Personal history of nicotine dependence; C34.11 Malignant neoplasm of upper lobe, right bronchus or lung
CPT/HCPCS: 82565; 84520; 71270; J1642; Q9967

== ENCOUNTER 2019-06-16 11:44 | Inpatient (IN) | payer MEDICARE, BC ==
[2019-06-16] MEDS ORDERED: SODIUM CHLORIDE 0.9% 1,000 ML IV STA (12:01)
[2019-06-16] MEDS ORDERED: ONDANSETRON 4 MG/2 ML VIAL IVP STA (12:01)
[2019-06-16] MEDS ORDERED: HYDROmorphone 1 MG/ML 1 ML SYRINGE IVP STA (12:01)
[2019-06-16] MEDS ORDERED: PANTOPRAZOLE 40 MG/10 ML VIAL IVP STA (12:01)
--- NOTE | 2019-06-16 12:05 | ED ---
General Adult HPI - General Chief complaint: Abdominal Pain Stated complaint: Abd Pain Time Seen by Provider: 06/16/19 11:53 Source: patient, RN notes reviewed Mode of arrival: wheelchair Limitations: physical limitation - History of Present Illness Initial comments: Patient is a pleasant 69-year-old female presenting to the emergency Department with complaints of lower abdominal discomfort. Onset of symptoms was around 3 AM. Patient is having cramping that is continuing. Discomfort is moderate. Patient feels like she is having diarrhea however has not. Patient has had some loose stools however that is not uncommon for her. Patient has nausea and has some mild emesis of sips of water. No fevers. No history of similar symptoms previously. Patient is currently on chemotherapy secondary to small cell lung cancer. Patient has finished radiation and is near complete with her course of chemotherapy. - Related Data Home Medications Medication Instructions Recorded Confirmed Aspirin 81 mg PO DAILY 07/27/13 06/16/19 Spironolactone [Aldactone] 12.5 mg PO DAILY 07/27/13 06/16/19 Lisinopril [Zestril] 10 mg PO DAILY 03/19/19 06/16/19 Magnesium Chloride [Mag64] 64 mg PO DAILY 03/19/19 06/16/19 Metoprolol Succinate (ER) [Toprol 50 mg PO DAILY 03/19/19 06/16/19 XL] ALPRAZolam [Xanax] 0.25 mg PO TID PRN 03/26/19 06/16/19 Acetaminophen [Tylenol Arthritis] 650 mg PO BID PRN 04/13/19 06/16/19 Famotidine [Pepcid] 20 mg PO BID 05/11/19 06/16/19 Sucralfate [Carafate] 1 gm PO QID 05/11/19 06/16/19 Carboxymethylcellulose Sodium 1 drop BOTH EYES DAILY PRN 06/16/19 06/16/19 [Refresh Tears] Fluconazole [Diflucan] 100 mg PO DAILY 06/16/19 06/16/19 Hydrocodone/Acetaminophen [[place] 1 tab PO Q6H PRN 06/16/19 06/16/19 5-325] Ondansetron [Zofran] 4 mg PO Q4H PRN 06/16/19 06/16/19 Allergies Allergy/AdvReac Type Severity Reaction Status Date / Time losartan [Losartan] Allergy Severe Rash/Hives Verified 06/16/19 12:50 Penicillins Allergy Severe Rash/Hives Verified 06/16/19 12:50 cortisone [Cortisone] AdvReac Severe flushed Verified 06/16/19 12:50 skin, depression Tetanus Vaccines and Toxoid AdvReac Severe huge Verified 06/16/19 12:50 [Tetanus Vaccines & Toxoid] localized swelling Review of Systems ROS Statement: Those systems with pertinent positive or pertinent negative responses have been documented in the HPI. ROS Other: All systems not noted in ROS Statement are negative. Constitutional: Denies: fever Eyes: Denies: eye pain ENT: Denies: ear pain Respiratory: Denies: cough Cardiovascular: Denies: chest pain Endocrine: Denies: fatigue Gastrointestinal: Reports: as per HPI, nausea Genitourinary: Denies: dysuria Musculoskeletal: Denies: back pain Skin: Denies: rash Neurological: Denies: weakness Past Medical History Past Medical History: Heart Failure, Hypertension, Osteoarthritis (OA), Pneumonia, Syncope Additional Past Medical History / Comment(s): P malignant HTN with pulmonary vas cular congestion/R upper lung mass to be followed up upon. 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 History of Any Multi-Drug Resistant Organisms: None Reported Past Surgical History: Pacemaker Additional Past Surgical History / Comment(s): 2013 BiV AICD/generator change 2013 cardiac cath Past Anesthesia/Blood Transfusion Reactions: Unable to Obtain Additional Past Anesthesia/Blood Transfusion Reaction / Comment(s): Pt hsa never had general or spinal anesthesia. Type of Cardiac Device: Biventricular Pacemaker, AICD Device Placement Date:: 2013 Past Psychological History: No Psychological Hx Reported Smoking Status: Former smoker Past Alcohol Use History: None Reported Past Drug Use History: None Reported - Past Family History Brother(s) Family Medical History: Cancer Additional Family Medical History / Comment(s): pancreatic cancer Father Family Medical History: CVA/TIA, Hypertension Additional Family Medical History / Comment(s): third degree block, stroke Mother Family Medical History: Hypertension General Exam Limitations: physical limitation General appearance: alert, in no apparent distress Head exam: Present: normocephalic Eye exam: Present: normal appearance Neck exam: Present: normal inspection Respiratory exam: Present: normal lung sounds bilaterally Cardiovascular Exam: Present: regular rate, normal rhythm Expanded Peripheral pulses: 2+: Dorsalis Pedis (R), Dorsalis Pedis (L) GI/Abdominal exam: Present: soft, tenderness (Mild to moderate tenderness lower abdomen). Absent: distended, guarding, rebound, rigid Extremities exam: Present: normal inspection Neurological exam: Present: alert Psychiatric exam: Present: normal affect, normal mood Skin exam: Present: normal color Course Vital Signs 06/16/19 06/16/19 11:49 13:51 Temperature 97.7 F Pulse Rate 80 78 Respiratory 18 18 Rate Blood Pressure 139/74 128/70 O2 Sat by Pulse 98 98 Oximetry Medical Decision Making - Medical Decision Making Patient reevaluated. Patient states she does feel somewhat better however exam is unchanged. Case was discussed in detail with Dr. Flowers who is familiar with this patient and states that patient should be admitted with IV quinolone and Flagyl. Case also discussed with Dr. Cordero with [facility], covering for Dr. Nieves, who will admit covered for Dr. Forrest. He does not feel surgical consult is needed at this time and will evaluate patient - Lab Data Result diagrams: 06/16/19 12:25 06/16/19 12:25 Lab Results 06/16/19 06/16/19 06/16/19 Range/Units 12:25 12:25 12:25 WBC 6.4 (3.8-10.6) k/uL RBC 3.80 (3.80-5.40) m/uL Hgb 11.5 (11.4-16.0) gm/dL Hct 34.6 (34.0-46.0) % MCV 91.1 (80.0-100.0) fL MCH 30.3 (25.0-35.0) pg MCHC 33.3 (31.0-37.0) g/dL RDW 14.2 (11.5-15.5) % Plt Count 407 (150-450) k/uL Neutrophils % 79 % Lymphocytes % 8 % Monocytes % 10 % Eosinophils % 0 % Basophils % 0 % Neutrophils # 5.0 (1.3-7.7) k/uL Lymphocytes # 0.5 L (1.0-4.8) k/uL Monocytes # 0.6 (0-1.0) k/uL Eosinophils # 0.0 (0-0.7) k/uL Basophils # 0.0 (0-0.2) k/uL PT 10.0 (9.0-12.0) sec INR 1.0 (<1.2) APTT 27.9 (22.0-30.0) sec Sodium 135 L (137-145) mmol/L Potassium 3.8 (3.5-5.1) mmol/L Chloride 96 L (98-107) mmol/L Carbon Dioxide 30 (22-30) mmol/L Anion Gap 9 mmol/L BUN 7 (7-17) mg/dL Creatinine 0.77 (0.52-1.04) mg/dL Est GFR (CKD-EPI)AfAm 90 (>60 ml/min/1.73 sqM) Est GFR (CKD-EPI)NonAf 78 (>60 ml/min/1.73 sqM) Glucose 109 H (74-99) mg/dL Calcium 9.1 (8.4-10.2) mg/dL Total Bilirubin 0.4 (0.2-1.3) mg/dL AST 18 (14-36) U/L ALT 8 (4-34) U/L Alkaline Phosphatase 50 (38-126) U/L Total Protein 7.9 (6.3-8.2) g/dL Albumin 4.2 (3.5-5.0) g/dL Amylase 40 (30-110) U/L Lipase 23 (23-300) U/L Urine Color Urine Appearance (Clear) Urine pH (5.0-8.0) Ur Specific [place] (1.001-1.035) Urine Protein (Negative) Urine Glucose (UA) (Negative) Urine Ketones (Negative) Urine Blood (Negative) Urine Nitrite (Negative) Urine Bilirubin (Negative) Urine Urobilinogen (<2.0) mg/dL Ur Leukocyte Esterase (Negative) Urine RBC (0-5) /hpf Urine WBC (0-5) /hpf Ur Squamous Epith Cells (0-4) /hpf Urine Bacteria (None) /hpf Urine Mucus (None) /hpf Coronavirus (PCR) (Not Detectd) 06/16/19 06/16/19 Range/Units 12:38 12:38 WBC (3.8-10.6) k/uL RBC (3.80-5.40) m/uL Hgb (11.4-16.0) gm/dL Hct (34.0-46.0) % MCV (80.0-100.0) fL MCH (25.0-35.0) pg MCHC (31.0-37.0) g/dL RDW (11.5-15.5) % Plt Count (150-450) k/uL Neutrophils % % Lymphocytes % % Monocytes % % Eosinophils % % Basophils % % Neutrophils # (1.3-7.7) k/uL Lymphocytes # (1.0-4.8) k/uL Monocytes # (0-1.0) k/uL Eosinophils # (0-0.7) k/uL Basophils # (0-0.2) k/uL PT (9.0-12.0) sec INR (<1.2) APTT (22.0-30.0) sec Sodium (137-145) mmol/L Potassium (3.5-5.1) mmol/L Chloride (98-107) mmol/L Carbon Dioxide (22-30) mmol/L Anion Gap mmol/L BUN (7-17) mg/dL Creatinine (0.52-1.04) mg/dL Est GFR (CKD-EPI)AfAm (>60 ml/min/1.73 sqM) Est GFR (CKD-EPI)NonAf (>60 ml/min/1.73 sqM) Glucose (74-99) mg/dL Calcium (8.4-10.2) mg/dL Total Bilirubin (0.2-1.3) mg/dL AST (14-36) U/L ALT (4-34) U/L Alkaline Phosphatase (38-126) U/L Total Protein (6.3-8.2) g/dL Albumin (3.5-5.0) g/dL Amylase (30-110) U/L Lipase (23-300) U/L Urine Color Light Yellow Urine Appearance Cloudy H (Clear) Urine pH 7.0 (5.0-8.0) Ur Specific [place] 1.013 (1.001-1.035) Urine Protein Trace H (Negative) Urine Glucose (UA) Negative (Negative) Urine Ketones Negative (Negative) Urine Blood Negative (Negative) Urine Nitrite Positive H (Negative) Urine Bilirubin Negative (Negative) Urine Urobilinogen <2.0 (<2.0) mg/dL Ur Leukocyte Esterase Small H (Negative) Urine RBC 1 (0-5) /hpf Urine WBC 26 H (0-5) /hpf Ur Squamous Epith Cells 1 (0-4) /hpf Urine Bacteria Many H (None) /hpf Urine Mucus Rare H (None) /hpf Coronavirus (PCR) Not Detected (Not Detectd) - Radiology Data Radiology results: report reviewed (Computed tomography scan of the abdomen and pelvis shows moderate distal colitis. Possible additional colitis mid transverse colon.) Disposition Clinical Impression: Colitis, Urinary tract infection Disposition: ADMITTED IP TO THIS HOSP Is patient prescribed a controlled substance at d/c from ED?: No Referrals: Arian Forrest MD [Primary Care Provider] - 1-2 days Decision Time: 15:24
[2019-06-16 12:44] LABS: Basophils % (A) 0 %; Eosinophils % (A) 0 %; HCT 34.6 % (34.0-46.0); HGB 11.5 gm/dL (11.4-16.0); Lymphocytes # (A) 0.5 k/uL (1.0-4.8); Lymphocytes % (A) 8 %; MCH 30.3 pg (25.0-35.0); MCHC 33.3 g/dL (31.0-37.0); MCV 91.1 fL (80.0-100.0); Mean Platelet Volume 7.5; Monocytes # (A) 0.6 k/uL (0-1.0); Monocytes % (A) 10 %; Neutrophils % (A) 79 %; Platelet Count 407 k/uL (150-450); RDW 14.2 % (11.5-15.5); WBC 6.4 k/uL (3.8-10.6)
[2019-06-16 12:57] LABS: Partial Thromboplastin Time 27.9 sec (22.0-30.0)
[2019-06-16 12:58] LABS: Albumin 4.2 g/dL (3.5-5.0); Calcium 9.1 mg/dL (8.4-10.2); Potassium 3.8 mmol/L (3.5-5.1); Total Bilirubin 0.4 mg/dL (0.2-1.3); Total Protein 7.9 g/dL (6.3-8.2)
[2019-06-16 13:04] LABS: Appearance,Urine Cloudy (Clear); Bacteria,Urine Many /hpf; Bilirubin,Urine Negative (Negative); Blood,Urine Negative (Negative); Color,Urine Light Yellow; Glucose,Urine (UA) Negative (Negative); Ketones,Urine Negative (Negative); Leukocyte Esterase,Urine Small (Negative); Mucus,Urine Rare /hpf; Nitrite,Urine Positive (Negative); Protein,Urine Trace (Negative); RBC,Urine 1 /hpf (0-5); Specific Gravity,Urine 1.013 (1.001-1.035); Squamous Epithelial Cell,Urine 1 /hpf (0-4); Urobilinogen,Urine <2.0 mg/dL (<2.0); WBC,Urine 26 /hpf (0-5)
--- NOTE | 2019-06-16 13:43 | CT ---
EXAMINATION TYPE: CT abdomen pelvis w con DATE OF EXAM: 06/16/2019 HISTORY: Generalized pain. History of probable high-grade lung cancer. CT DLP: 1668.4mGycm Automated Exposure Control for Dose Reduction was Utilized. CONTRAST: CT scan of the abdomen and pelvis is performed without oral but with IV Contrast, patient injected wi th 100 mL of Isovue 300. COMPARISON: PET CT April 03, 2019 and older chest CTs FINDINGS: LUNG BASES: Mild cardiomegaly with partial visualization of multi lead pacemaker leads. Tiny pericard ial effusion inferiorly redemonstrated LIVER/GB: Occasional scattered subcentimeter hypodense lesion in liver for reference axial image 16 a nd posterior right hepatic lobe axial image 22 both too small to further characterize presumed benign . PANCREAS: No significant abnormality is seen. SPLEEN: No significant abnormality is seen. ADRENALS: Persistent low dense left adrenal mass measuring 2.2 x 1.7 cm image 22 noted ametabolic on the comparison PET/CT. KIDNEYS: Symmetric cortical medullary uptake and excretion without hydronephrosis seen bilaterally. BOWEL: Suboptimal evaluation of bowel without enteric contrast. Stomach not greatly distended and rudy s suboptimally evaluated. No suspicious small bowel dilatation. Cecum right midabdomen just below liver coronal image 41 for reference. Terminal ileum within normal limits. Normal appendix coronal image 54. Areas of high dense material throughout the colon presumed product of food ingestion. Moderate prominence of fecal material near the hepatic flexure and proximal transverse colon. Mid tra nsverse colon shows area of moderate length mild to moderate wall thickening from coronal image 39 th rough 28. There is dense material and mild fecal prominence in the distal transverse colon and left c olon. There is fairly moderate wall thickening in the sigmoid colon extending to rectum with moderate surrounding fat stranding and ill-defined fluid. No free air is present. UTERUS/ADNEXA: Heterogeneous anteverted uterus with lobulated 2.6 cm lesion towards the fundus presum ed fibroid axial image 74. LYMPH NODES: No greater than 1cm abdominal or pelvic lymph nodes are appreciated. OSSEOUS STRUCTURES: Mild to moderate multilevel spurring of the thoracolumbar spine. Mild to moderate narrowing of both hip joints. OTHER: Fairly severe calcified plaque of the aorta extends into branch vessels. Tiny fat-containing u mbilical hernia. IMPRESSION: 1. At least a moderate distal colitis. Possible additional mild colitis mid transverse colon level. D ifferential includes infectious inflammatory and ischemic etiologies. Correlate clinically.
[2019-06-16] MEDS ORDERED: NALOXONE 0.4 MG/ML 1 ML VIAL IV PRN (15:25)
[2019-06-16] MEDS ORDERED: HYDROmorphone 1 MG/ML 1 ML SYRINGE IVP PRN (15:25)
[2019-06-16] MEDS ORDERED: LEVOFLOXACIN 750MG-D5W PMX 750 MG in DEXTROSE/WATER 1 150ML.BAG IVPB STA (15:25)
[2019-06-16] MEDS: SODIUM CHLORIDE 0.9% 1,000 ML IV SCH (15:44)
[2019-06-16] MEDS: metroNIDAZOLE-NS PMX 500 MG in SALINE 1 100ML.BAG IVPB SCH (17:24)
[2019-06-16] MEDS: HYDROcodone/APAP 15 ML SOLUTION PO PRN (18:24)
[2019-06-16] MEDS ORDERED: ONDANSETRON 4 MG TAB PO PRN (18:25)
[2019-06-16] MEDS ORDERED: ARTIFICIAL TEARS-HYPROMELLOSE DROPS 15 ML BTL BOTH EYES PRN (18:25)
[2019-06-16] MEDS ORDERED: HYDROcodone/APAP 5-325MG 1 EACH TAB PO PRN (18:25)
[2019-06-16] MEDS ORDERED: ALPRAZolam 0.25 MG TAB PO PRN (18:25)
--- NOTE | 2019-06-16 18:28 | P.HPIM ---
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 On arrival to the ER her vital signs were within normal limits. Laboratory analysis was essentially unremarkable. Urinalysis was negative and coronal virus PCR was not detected. CT abdomen and pelvis showed moderate distal colitis with additional mild colitis in the mid transverse colon. She was started on Levaquin and Flagyl and admitted for further monitoring. Patient seen and examined at bedside. She complains of diarrhea that started approximately 2 days ago and then subsided last night. She then began having intense cramping in her lower abdomen and feeling like she would have diarrhea but nothing was coming out. She also overall feels bloated. Last evening she had some nausea and vomiting since last approximately one hour and has since subsided. She denies any fevers or chills. She states her appetite has been okay but there is not many things she can tolerate secondary to having recent radiation to the chest resulting in esophageal pain. She continues to have pain on swallowing which is slowly improving. She denies any unusual weakness, chest pain, or shortness of breath. Overall she is feeling better than when she was diagnosed with cancer approximately 2 months ago. Patient with chronic lower extremity edema that she states is unchanged. Review of Systems Pertinent positives and negatives as discussed in HPI, a complete review of systems was performed and all other systems are negative. Past Medical History Past Medical History: Heart Failure, Hypertension, Osteoarthritis (OA), Pneumonia, Syncope Additional Past Medical History / Comment(s): Nonischemic cardiomyopathy, CHB with BiV AICD, bronchitis, arthritis, small cell lung CA diagnosed Mar 2019 (last chemo 3 weeks ago), radiation one month ago History of Any Multi-Drug Resistant Organisms: None Reported Past Surgical History: Pacemaker Additional Past Surgical History / Comment(s): 2013 BiV AICD/generator change 2013 cardiac cath, port Past Anesthesia/Blood Transfusion Reactions: Unable to Obtain Additional Past Anesthesia/Blood Transfusion Reaction / Comment(s): Pt hsa never had general or spinal anesthesia. Type of Cardiac Device: Biventricular Pacemaker, AICD Device Placement Date:: 2013 Past Psychological History: No Psychological Hx Reported Additional Psychological History / Comment(s): Pt resides alone. She is independent. Smoking Status: Former smoker Past Alcohol Use History: None Reported Additional Past Alcohol Use History / Comment(s): Pt started smoking in 1964 and quit in 2012. Past Drug Use History: None Reported - Past Family History Brother(s) Family Medical History: Cancer Additional Family Medical History / Comment(s): pancreatic cancer Father Family Medical History: CVA/TIA, Hypertension Additional Family Medical History / Comment(s): third degree block, stroke Mother Family Medical History: Hypertension Medications and Allergies Home Medications Medication Instructions Recorded Confirmed Type Aspirin 81 mg PO DAILY 07/27/13 06/16/19 History Spironolactone [Aldactone] 12.5 mg PO DAILY 07/27/13 06/16/19 History Lisinopril [Zestril] 10 mg PO DAILY 03/19/19 06/16/19 History Magnesium Chloride [Mag64] 64 mg PO DAILY 03/19/19 06/16/19 History Metoprolol Succinate (ER) [Toprol 50 mg PO DAILY 03/19/19 06/16/19 History XL] ALPRAZolam [Xanax] 0.25 mg PO TID PRN 03/26/19 06/16/19 History Acetaminophen [Tylenol Arthritis] 650 mg PO BID PRN 04/13/19 06/16/19 History Famotidine [Pepcid] 20 mg PO BID 05/11/19 06/16/19 History Sucralfate [Carafate] 1 gm PO QID 05/11/19 06/16/19 History Carboxymethylcellulose Sodium 1 drop BOTH EYES DAILY PRN 06/16/19 06/16/19 History [Refresh Tears] Fluconazole [Diflucan] 100 mg PO DAILY 06/16/19 06/16/19 History Hydrocodone/Acetaminophen [[place] 1 tab PO Q6H PRN 06/16/19 06/16/19 History 5-325] Ondansetron [Zofran] 4 mg PO Q4H PRN 06/16/19 06/16/19 History Allergies Allergy/AdvReac Type Severity Reaction Status Date / Time losartan [Losartan] Allergy Severe Rash/Hives Verified 06/16/19 12:50 Penicillins Allergy Severe Rash/Hives Verified 06/16/19 12:50 cortisone [Cortisone] AdvReac Severe flushed Verified 06/16/19 12:50 skin, depression Tetanus Vaccines and Toxoid AdvReac Severe huge Verified 06/16/19 12:50 [Tetanus Vaccines & Toxoid] localized swelling Physical Exam Osteopathic Statement: *. No significant issues noted on an osteopathic structural exam other than those noted in the History and Physical/Consult. Vitals: Vital Signs Temp Pulse Pulse Resp BP BP Pulse Ox 06/16/19 17:22 98.2 F 80 20 127/58 97 06/16/19 16:34 97.9 F 68 20 135/81 99 06/16/19 15:00 72 20 147/63 99 06/16/19 13:51 78 18 128/70 98 06/16/19 11:49 97.7 F 80 18 139/74 98 Intake and Output 06/16/19 06/16/19 06/16/19 06:59 14:59 22:59 Other: Weight 100.698 kg 100.698 kg General: ill appearing, no distress, appears at stated age, normal weight Derm: multiple striae over chest wall no unusual ecchymoses, warm, dry Head: atraumatic, normocephalic, symmetric Eyes: EOMI, no lid lag, anicteric sclera, pupils equal round reactive to light ENT: Nose and ears atraumatic, no thrush, no pharyngeal erythema Neck: No thyromegaly, no cervical lymphadenopathy, trachea midline, supple Mouth: no lip lesion, mucus membranes moist Cardiovascular: S1S2 reg, no murmur, positive posterior tibial pulse bilateral, 1+ edema, capillary refill less than 2 seconds Lungs: Decreased bs bilateral, no rhonchi, no rales , no accessory muscle use Abdominal: soft, +tender to palpation diffusely, no guarding, no appreciable organomegaly, normal bowel sounds Ext: no gross muscle atrophy, muscle strength 5 out of 5 in all 4 extremities grossly, no contractures, Neuro: CN II-XI grossly intact, light touch intact all 4 extremities, finger to nose within normal limits, Psych: Alert, oriented, appropriate affect Results CBC & Chem 7: 06/16/19 12:25 06/16/19 12:25 Labs: Abnormal Lab Results - Last 24 Hours (Table) 06/16/19 06/16/19 06/16/19 Range/Units 12:25 12:25 12:38 Lymphocytes # 0.5 L (1.0-4.8) k/uL Sodium 135 L (137-145) mmol/L Chloride 96 L (98-107) mmol/L Glucose 109 H (74-99) mg/dL Urine Appearance Cloudy H (Clear) Urine Protein Trace H (Negative) Urine Nitrite Positive H (Negative) Ur Leukocyte Esterase Small H (Negative) Urine WBC 26 H (0-5) /hpf Urine Bacteria Many H (None) /hpf Urine Mucus Rare H (None) /hpf CT scan - abdomen: report reviewed CT scan - pelvis: report reviewed Thrombosis Risk Factor Assmnt - DVT/VTE Prophylaxis DVT/VTE Prophylaxis: Pharmacologic Prophylaxis ordered - Choose All That Apply Any of the Below Risk Factors Present?: Yes Each Factor Represents 1 point: Swollen legs (current) Other Risk Factors: Yes Each Risk Factor Represents 2 Points: Age 61-74 years Other congenital or acquired thrombophilia - If yes, enter type in comment: No Thrombosis Risk Factor Assessment Total Risk Factor Score: 3 Thrombosis Risk Factor Assessment Level: Moderate Risk Assessment and Plan Assessment: Colitis with intractable abdominal pain -medication induced vs infectious less likely ischemia - levaquin and flagyl - clear liquids only for pleasure - pain control - antiemetics - IVF gentle with hx of CHF Small cell lung Ca - Recent chemo 3 weeks ago and radiation 1 month ago for SVC syndrome - Oncology recs HTN, controlled - resume home medications CHF unknown type, controlled - Lisinopril, Toprol, Aldactone The patient is admitted with an anticipated greater than 2 midnight stay for evaluation of Colitis. Surrogate decision-maker: Sister Alexia CODE STATUS:Full DVT prophylaxis: Lovenox Discussed with: Patient, nursing, oncology Anticipated discharge date: 1-[address]: home A total of [65] minutes was spent on the care of this complex patient more than 50% of the time was spent in counseling and care coordination.
[2019-06-16] MEDS: FAMOTIDINE 20 MG TAB PO SCH (20:05)
[2019-06-16] MEDS ORDERED: DICYCLOMINE 10 MG CAP PO PRN (20:39)
[2019-06-16] MEDS: SUCRALFATE 1 GM TAB PO SCH (21:19)
--- NOTE | 2019-06-16 21:40 | P.CONS ---
History of Present Illness - Reason for Consult Consult date: 06/16/19 Lung Cancer Requesting physician: Sharan Iraheta - Chief Complaint Abdominal Cramping - History of Present Illness Radha is a patient of Dr. Foy being treated for extensive stage small cell lung cancer, most recent treatment has been held due to cytopenias. She has had complaints of esophagitis and diarrhea since treatment start, initially improved but worsened with abdominal cramping she states that was worse that brought her back into the hospital. A CT scan completed revealitis colitis, concern for ischemia, and rec surgery to assess. Review of Systems A 14 point review of systems assessed and completed and all negative except HPI Past Medical History Past Medical History: Heart Failure, Hypertension, Osteoarthritis (OA), Pneumonia, Syncope Additional Past Medical History / Comment(s): P malignant HTN with pulmonary vascular congestion/R upper lung mass to be followed up upon. Other hx: Nonischemic cardiomyopathy, chronic CHF, CHB with BiV AICD, bronchitis, a rthritis in fingers/bilateral knees/toes/lumbar spine, tendonitis R ankle, varicosities, lung mass (small cell)pressing on pulmonary artry, bronchoscope done. History of Any Multi-Drug Resistant Organisms: None Reported Past Surgical History: Pacemaker Additional Past Surgical History / Comment(s): 2013 BiV AICD/generator change 2013 cardiac cath Past Anesthesia/Blood Transfusion Reactions: Unable to Obtain Additional Past Anesthesia/Blood Transfusion Reaction / Comm: Pt hsa never had general or spinal anesthesia. Type of Cardiac Device: Biventricular Pacemaker, AICD Device Placement Date:: 2013 Past Psychological History: No Psychological Hx Reported Smoking Status: Former smoker Past Alcohol Use History: None Reported Past Drug Use History: None Reported - Past Family History Brother(s) Family Medical History: Cancer Additional Family Medical History / Comment(s): pancreatic cancer Father Family Medical History: CVA/TIA, Hypertension Additional Family Medical History / Comment(s): third degree block, stroke Mother Family Medical History: Hypertension Medications and Allergies Home Medications Medication Instructions Recorded Confirmed Type Aspirin 81 mg PO DAILY 07/27/13 06/16/19 History Spironolactone [Aldactone] 12.5 mg PO DAILY 07/27/13 06/16/19 History Lisinopril [Zestril] 10 mg PO DAILY 03/19/19 06/16/19 History Magnesium Chloride [Mag64] 64 mg PO DAILY 03/19/19 06/16/19 History Metoprolol Succinate (ER) [Toprol 50 mg PO DAILY 03/19/19 06/16/19 History XL] ALPRAZolam [Xanax] 0.25 mg PO TID PRN 03/26/19 06/16/19 History Acetaminophen [Tylenol Arthritis] 650 mg PO BID PRN 04/13/19 06/16/19 History Famotidine [Pepcid] 20 mg PO BID 05/11/19 06/16/19 History Sucralfate [Carafate] 1 gm PO QID 05/11/19 06/16/19 History Carboxymethylcellulose Sodium 1 drop BOTH EYES DAILY PRN 06/16/19 06/16/19 History [Refresh Tears] Fluconazole [Diflucan] 100 mg PO DAILY 06/16/19 06/16/19 History Hydrocodone/Acetaminophen [[place] 1 tab PO Q6H PRN 06/16/19 06/16/19 History 5-325] Ondansetron [Zofran] 4 mg PO Q4H PRN 06/16/19 06/16/19 History Allergies Allergy/AdvReac Type Severity Reaction Status Date / Time losartan [Losartan] Allergy Severe Rash/Hives Verified 06/16/19 12:50 Penicillins Allergy Severe Rash/Hives Verified 06/16/19 12:50 cortisone [Cortisone] AdvReac Severe flushed Verified 06/16/19 12:50 skin, depression Tetanus Vaccines and Toxoid AdvReac Severe huge Verified 06/16/19 12:50 [Tetanus Vaccines & Toxoid] localized swelling Physical Exam Vitals: Vital Signs Temp Pulse Resp BP Pulse Ox 06/16/19 15:00 72 20 147/63 99 06/16/19 13:51 78 18 128/70 98 06/16/19 11:49 97.7 F 80 18 139/74 98 Intake and Output 06/16/19 06/16/19 06/16/19 06:59 14:59 22:59 Other: Weight 100.698 kg Gen: ALert and Oriented Head: AC, NT Neck: Supple HEaart: RRR Lungs: DIminished, no jincreased effort Abd: Obese, Soft Ex: Gen Edema Mood: Calm Results CBC & Chem 7: 06/16/19 12:25 06/16/19 12:25 Labs: Abnormal Lab Results - Last 24 Hours (Table) 06/16/19 06/16/19 06/16/19 Range/Units 12:25 12:25 12:38 Lymphocytes # 0.5 L (1.0-4.8) k/uL Sodium 135 L (137-145) mmol/L Chloride 96 L (98-107) mmol/L Glucose 109 H (74-99) mg/dL Urine Appearance Cloudy H (Clear) Urine Protein Trace H (Negative) Urine Nitrite Positive H (Negative) Ur Leukocyte Esterase Small H (Negative) Urine WBC 26 H (0-5) /hpf Urine Bacteria Many H (None) /hpf Urine Mucus Rare H (None) /hpf CT scan - abdomen: report reviewed CT scan - pelvis: report reviewed Assessment and Plan Plan: Assessment and Recommendations: 1. Extensive Stage Small Cell Lung Cancer: - Status POst Cycle 2 Chemo 05/27 - Last cycle held one week, due 06/21 due to cytopenias and persistent diarrhea and esophagitis 2. Esophagitis: - Likely secondary to radiation - Supportive Care - Continue carafate 3. Diarrhea and Abdominal Pain: - CT reviewed Colitis - Stool Studies - Surgical consultation to evaluate for ischemia - Marli Thank you for allowing us to follow with you Physician Attest: I have completed the full history and physical and agree with above dictation, dictated as a scribe.
[2019-06-17] MEDS: metroNIDAZOLE-NS PMX 500 MG in SALINE 1 100ML.BAG IVPB SCH ×3 (00:51→17:09)
[2019-06-17] MEDS: SODIUM CHLORIDE 0.9% 1,000 ML IV SCH ×2 (00:54→12:08)
[2019-06-17] MEDS: HYDROcodone/APAP 15 ML SOLUTION PO PRN ×2 (06:08→18:02)
[2019-06-17 07:01] LABS: Basophils % (A) 0 %; Eosinophils % (A) 1 %; HCT 32.5 % (34.0-46.0); HGB 10.7 gm/dL (11.4-16.0); Lymphocytes # (A) 0.5 k/uL (1.0-4.8); Lymphocytes % (A) 10 %; MCH 30.5 pg (25.0-35.0); MCHC 32.8 g/dL (31.0-37.0); Mean Platelet Volume 7.7; Monocytes # (A) 0.6 k/uL (0-1.0); Monocytes % (A) 13 %; Neutrophils # (A) 3.3 k/uL (1.3-7.7); Neutrophils % (A) 73 %; Platelet Count 437 k/uL (150-450); RBC 3.49 m/uL (3.80-5.40); RDW 14.4 % (11.5-15.5); WBC 4.4 k/uL (3.8-10.6)
[2019-06-17 07:11] LABS: Albumin 3.5 g/dL (3.5-5.0); Calcium 8.3 mg/dL (8.4-10.2); Magnesium 1.7 mg/dL (1.6-2.3); Potassium 3.3 mmol/L (3.5-5.1); Total Bilirubin 0.3 mg/dL (0.2-1.3); Total Protein 6.9 g/dL (6.3-8.2)
[2019-06-17] MEDS: METOPROLOL SUCCINATE (ER) 50 MG TAB.ER.24H PO SCH (08:19)
[2019-06-17] MEDS: SPIRONOLACTONE 25 MG TAB PO SCH (08:20)
[2019-06-17] MEDS: LISINOPRIL 10 MG TAB PO SCH (08:20)
[2019-06-17] MEDS: FAMOTIDINE 20 MG TAB PO SCH ×2 (08:20→19:57)
[2019-06-17] MEDS: SUCRALFATE 1 GM TAB PO SCH ×4 (08:20→21:28)
[2019-06-17] MEDS: ENOXAPARIN 40 MG/0.4 ML SYRINGE SQ SCH (08:20)
[2019-06-17] MEDS: ASPIRIN 81 MG PO SCH (08:20)
[2019-06-17] MEDS: MAGNESIUM OXIDE 400 MG TAB PO SCH (08:20)
[2019-06-17] MEDS: FLUCONAZOLE 100 MG TAB PO SCH (08:21)
[2019-06-17] MEDS ORDERED: POTASSIUM CHLORIDE 20 MEQ in WATER FOR INJECTION 1 100ML.BAG IVPB STA (08:45)
[2019-06-17] MEDS ORDERED: LEVOFLOXACIN 750MG-D5W PMX 750 MG in DEXTROSE/WATER 1 150ML.BAG IVPB SCH (16:00)
--- NOTE | 2019-06-17 19:11 | P.PN ---
Subjective Progress Note Date: 06/17/19 Principal diagnosis: Lung Cancer with Diarrhea, and colitis Cramping improved today Objective - Vital Signs Vital signs: Vital Signs Temp 97.7 F 06/17/19 11:52 Pulse 69 06/17/19 16:00 Resp 17 06/17/19 16:00 BP 167/67 06/17/19 11:52 Pulse Ox 97 06/17/19 11:52 Intake & Output 06/16/19 06/17/19 06/17/19 18:59 06:59 18:59 Intake Total 825 1820 Balance 825 1820 Weight 100.698 kg Intake: Intake, IV Titration 825 1100 Amount Potassium Chloride 20 meq 100 In Water For Injection 1 100ml.bag @ 50 mls/hr IVPB ONCE STA Rx#: [id number] Sodium Chloride 0.9% 1, 825 900 000 ml @ 75 mls/hr IV . [id number] [facility] Rx#:[id number] metroNIDAZOLE-NS PMX 500 100 mg In Saline 1 100ml.bag @ 100 mls/hr IVPB Q8HR [facility] Rx#:[id number] Oral 720 Other: Voiding Method Toilet Toilet # Voids 1 3 - Exam Gen: ALert and Oriented Head: AC, NT Neck: Supple HEaart: RRR Lungs: DIminished, no jincreased effort Abd: Obese, Soft Ex: Gen Edema Mood: Calm - Labs CBC & Chem 7: 06/17/19 06:13 06/17/19 06:13 Labs: Abnormal Lab Results - Last 24 Hours (Table) 06/17/19 06/17/19 Range/Units 06:13 06:13 RBC 3.49 L (3.80-5.40) m/uL Hgb 10.7 L (11.4-16.0) gm/dL Hct 32.5 L (34.0-46.0) % Lymphocytes # 0.5 L (1.0-4.8) k/uL Sodium 135 L (137-145) mmol/L Potassium 3.3 L (3.5-5.1) mmol/L Calcium 8.3 L (8.4-10.2) mg/dL Microbiology - Last 24 Hours (Table) 06/16/19 12:25 Blood Culture - Preliminary Blood No Growth after 24 hours 04/22/20 12:38 Urine Culture - Preliminary Urine,Voided Assessment and Plan Plan: Assessment and Recommendations: 1. Extensive Stage Small Cell Lung Cancer: - Status Post Cycle 2 Chemo 05/27 - Last cycle held one week, due 06/21 due to cytopenias and persistent diarrhea and esophagitis 2. Esophagitis: - Likely secondary to radiation - Supportive Care - Continue carafate 3. Diarrhea and Abdominal Pain: - CT reviewed Colitis - Stool Studies - Surgical consultation to evaluate for ischemia - Edwin and Rinku 4. Normocytic Anemia: - Likely dilution, nut will check iron studies 5. Hypokalemia: - Check Mag and Supp per protocol Discussed with Primary team, will await recs or evaluation from surgery to ensure no bowel ischemia as colotis without cause. Thank you for allowing us to follow with you
[2019-06-17] MEDS: LEVOFLOXACIN 750MG-D5W PMX 750 MG in DEXTROSE/WATER 1 150ML.BAG IVPB SCH (20:26)
[2019-06-17 23:18] LABS: % Iron Saturation 16.12 (12.00-45.00)
[2019-06-17 23:26] LABS: Ferritin 262.4 ng/mL (10.0-291.0)
[2019-06-17 23:27] LABS: Folate, Serum 4.8 ng/mL
[2019-06-18] MEDS: metroNIDAZOLE-NS PMX 500 MG in SALINE 1 100ML.BAG IVPB SCH ×3 (00:34→16:52)
[2019-06-18] MEDS: HYDROcodone/APAP 15 ML SOLUTION PO PRN (00:56)
[2019-06-18] MEDS: SODIUM CHLORIDE 0.9% 1,000 ML IV SCH ×2 (06:46→16:54)
[2019-06-18 07:24] LABS: Basophils % (A) 0 %; Eosinophils % (A) 1 %; HCT 35.1 % (34.0-46.0); HGB 11.3 gm/dL (11.4-16.0); Hypochromasia Slight; Lymphocytes # (A) 0.4 k/uL (1.0-4.8); Lymphocytes % (A) 8 %; MCHC 32.2 g/dL (31.0-37.0); MCV 96.3 fL (80.0-100.0); Mean Platelet Volume 7.5; Monocytes # (A) 0.6 k/uL (0-1.0); Monocytes % (A) 12 %; Neutrophils # (A) 3.8 k/uL (1.3-7.7); Neutrophils % (A) 76 %; Platelet Count 435 k/uL (150-450); RBC 3.64 m/uL (3.80-5.40); RDW 14.8 % (11.5-15.5); WBC 4.9 k/uL (3.8-10.6)
[2019-06-18 07:45] LABS: ALT 8 U/L (4-34); AST 21 U/L (14-36); African American GFR (CKD) >90 (>60 ml/min/1.73 sqM); Albumin 3.7 g/dL (3.5-5.0); Alkaline Phosphatase 44 U/L (38-126); Anion Gap 11 mmol/L; Blood Urea Nitrogen 5 mg/dL (7-17); Calcium 8.5 mg/dL (8.4-10.2); Carbon Dioxide 25 mmol/L (22-30); Chloride 101 mmol/L (98-107); Glucose 91 mg/dL (74-99); Magnesium 1.8 mg/dL (1.6-2.3); Non-African American GFR(CKD) 80 (>60 ml/min/1.73 sqM); Potassium 3.6 mmol/L (3.5-5.1); Sodium 137 mmol/L (137-145); Total Bilirubin 0.3 mg/dL (0.2-1.3); Total Protein 7.2 g/dL (6.3-8.2)
[2019-06-18] MEDS: SPIRONOLACTONE 25 MG TAB PO SCH (07:49)
[2019-06-18] MEDS: LISINOPRIL 10 MG TAB PO SCH (07:49)
[2019-06-18] MEDS: FLUCONAZOLE 100 MG TAB PO SCH (07:49)
[2019-06-18] MEDS: METOPROLOL SUCCINATE (ER) 50 MG TAB.ER.24H PO SCH (07:49)
[2019-06-18] MEDS: FAMOTIDINE 20 MG TAB PO SCH ×2 (07:49→20:50)
[2019-06-18] MEDS: ASPIRIN 81 MG PO SCH (07:49)
[2019-06-18] MEDS: SUCRALFATE 1 GM TAB PO SCH ×3 (07:49→20:50)
[2019-06-18] MEDS: MAGNESIUM OXIDE 400 MG TAB PO SCH (07:49)
[2019-06-18] MEDS: ENOXAPARIN 40 MG/0.4 ML SYRINGE SQ SCH (07:50)
[2019-06-18] MEDS: BACITRACIN 500 UNIT/GM OINT 28.4 GM TUBE TOPICAL SCH ×2 (09:17→20:50)
--- NOTE | 2019-06-18 09:22 | XR ---
EXAMINATION TYPE: XR chest 1V portable DATE OF EXAM: 06/18/2019 Comparison: 05/13/2019 Clinical History: 69-year-old female cough Findings: Right anterior chest wall injection port with catheter tip at the upper SVC. Left anterior chest wall pacemaker generator with right atrial, right ventricular, and coronary sinus leads. Patient is obliqued and rotated towards the right altering the normal cardiomediastinal contours. Heart appears mildly enlarged. Hazy lower lung densities related to overlying soft tissue. Some stran dy density at the left base likely atelectasis. No obvious consolidation or pleural effusion. Redemon strated right paratracheal soft tissue thickening. Impression: Exam limited by patient positioning. Mild cardiomegaly. Known right paratracheal mass. Strandy left b asilar atelectasis. Otherwise, no definite acute process.
--- NOTE | 2019-06-18 09:59 | P.GSCN ---
<Mildred Sands - Last Filed: 06/18/19 09:47> History of Present Illness Consult date: 06/18/19 Reason for Consult: colitis Requesting physician: Lala Hu History of present illness: CHIEF COMPLAINT: Colitis HISTORY OF PRESENT ILLNESS: 69-year-old female with a history of small cell lung cancer who presented to the emergency room with abdominal pain. Patient received chemotherapy approximately 3 weeks ago and radiation approximately one month ago. She reports intolerance to acidic clear liquids such as juice secondary to radiation near her esophagus and states she has severe burning when she drinks it. Patient states she has had abdominal pain on and off since February. However she reports increased, pain over the past week. She reports diarrhea that started a week ago. She states her diarrhea has since resolved. She is passing flatus this morning. Her pain is localized to the left lower quadrant. She states it is improved since coming to the hospital. Denies nausea or vomiting. PAST MEDICAL HISTORY: See list. PAST SURGICAL HISTORY: See list. SOCIAL HISTORY: No illicit drug use. REVIEW OF SYSTEMS: CONSTITUTIONAL: Denies fever or chills. HEENT: Denies blurred vision, vision changes, or eye pain. Denies hemoptysis CARDIOVASCULAR: Denies chest pain or pressure. RESPIRATORY: No shortness of breath. GASTROINTESTINAL: Refer to HPI for pertinent findings HEMATOLOGIC: Denies bleeding disorders. GENITOURINARY: Denies any blood in urine. SKIN: Denies pruitis. Denies rash. PHYSICAL EXAM: VITAL SIGNS: Reviewed. GENERAL: Well-developed in no acute distress. HEENT: No sclera icterus. Extraocular movements grossly intact. Moist buccal mucosa. Head is atraumatic, normocephalic. ABDOMEN: Soft. Nondistended. Mild tenderness upon palpation to left lower quadrant. NEUROLOGIC: Alert and oriented. Cranial nerves II through XII grossly intact. LABORATORY DATA: WBC 4.9. Hemoglobin 11.3. Platelet count 435. Sodium 137. Potassium 3.6. BUN 5. Creatinine 0.76. Magnesium 1.8. IMAGING: CT abdomen and pelvis: Moderate distal colitis. Possible additional mild coliti s mild transverse colon. ASSESSMENT: 1. Abdominal pain 2. Colitis 3. Small cell lung cancer PLAN: -Continue antibiotics -Patient not tolerating many of the clear liquid options secondary to burning from radiation therapy. Will trial full liquid diet. If patients abdominal pain increases, will have to downgrade diet back to clear liquids -Patient will be re-evaluated by Dr. Polo today Nurse practitioner note has been reviewed by physician. Signing provider agrees with the documented findings, assessment, and plan of care. Past Medical History Past Medical History: Heart Failure, Hypertension, Osteoarthritis (OA), Pneumonia, Syncope Additional Past Medical History / Comment(s): P malignant HTN with pulmonary vascular congestion/R upper lung mass to be followed up upon. 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 History of Any Multi-Drug Resistant Organisms: None Reported Past Surgical History: Pacemaker Additional Past Surgical History / Comment(s): 2013 BiV AICD/generator change 2013 cardiac cath Past Anesthesia/Blood Transfusion Reactions: Unable to Obtain Additional Past Anesthesia/Blood Transfusion Reaction / Comm: Pt hsa never had general or spinal anesthesia. Type of Cardiac Device: Biventricular Pacemaker, AICD Device Placement Date:: 2013 Past Psychological History: No Psychological Hx Reported Smoking Status: Former smoker Past Alcohol Use History: None Reported Past Drug Use History: None Reported - Past Family History Brother(s) Family Medical History: Cancer Additional Family Medical History / Comment(s): pancreatic cancer Father Family Medical History: CVA/TIA, Hypertension Additional Family Medical History / Comment(s): third degree block, stroke Mother Family Medical History: Hypertension Medications and Allergies Home Medications Medication Instructions Recorded Confirmed Type Aspirin 81 mg PO DAILY 07/27/13 06/16/19 History Spironolactone [Aldactone] 12.5 mg PO DAILY 07/27/13 06/16/19 History Lisinopril [Zestril] 10 mg PO DAILY 03/19/19 06/16/19 History Magnesium Chloride [Mag64] 64 mg PO DAILY 03/19/19 06/16/19 History Metoprolol Succinate (ER) [Toprol 50 mg PO DAILY 03/19/19 06/16/19 History XL] ALPRAZolam [Xanax] 0.25 mg PO TID PRN 03/26/19 06/16/19 History Acetaminophen [Tylenol Arthritis] 650 mg PO BID PRN 04/13/19 06/16/19 History Famotidine [Pepcid] 20 mg PO BID 05/11/19 06/16/19 History Sucralfate [Carafate] 1 gm PO QID 05/11/19 06/16/19 History Carboxymethylcellulose Sodium 1 drop BOTH EYES DAILY PRN 06/16/19 06/16/19 History [Refresh Tears] Fluconazole [Diflucan] 100 mg PO DAILY 06/16/19 06/16/19 History Hydrocodone/Acetaminophen [[place] 1 tab PO Q6H PRN 06/16/19 06/16/19 History 5-325] Ondansetron [Zofran] 4 mg PO Q4H PRN 06/16/19 06/16/19 History Allergies Allergy/AdvReac Type Severity Reaction Status Date / Time losartan [Losartan] Allergy Severe Rash/Hives Verified 06/16/19 12:50 Penicillins Allergy Severe Rash/Hives Verified 06/16/19 12:50 cortisone [Cortisone] AdvReac Severe flushed Verified 06/16/19 12:50 skin, depression Tetanus Vaccines and Toxoid AdvReac Severe huge Verified 06/16/19 12:50 [Tetanus Vaccines & Toxoid] localized swelling Surgical - Exam Vital Signs Temp Pulse Resp BP Pulse Ox 97.7 F 80 18 139/74 98 06/16/19 11:49 06/16/19 11:49 06/16/19 11:49 06/16/19 11:49 06/16/19 11:49 Results - Labs 06/18/19 06:22 06/18/19 06:22 Abnormal Lab Results - Last 24 Hours (Table) 06/16/19 06/18/19 06/18/19 Range/Units 12:25 06:22 06:22 RBC 3.64 L (3.80-5.40) m/uL Hgb 11.3 L (11.4-16.0) gm/dL Lymphocytes # 0.4 L (1.0-4.8) k/uL BUN 5 L (7-17) mg/dL Iron 44 L (50-170) ug/dL Microbiology - Last 24 Hours (Table) 06/16/19 12:38 Urine Culture - Preliminary Urine,Voided Gram Neg Bacilli 06/16/19 12:25 Blood Culture - Preliminary Blood No Growth after 24 hours Diabetes panel 06/18/19 Range/Units 06:22 Sodium 137 (137-145) mmol/L Potassium 3.6 (3.5-5.1) mmol/L Chloride 101 (98-107) mmol/L Carbon Dioxide 25 (22-30) mmol/L BUN 5 L (7-17) mg/dL Creatinine 0.76 (0.52-1.04) mg/dL Glucose 91 (74-99) mg/dL Calcium 8.5 (8.4-10.2) mg/dL AST 21 (14-36) U/L ALT 8 (4-34) U/L Alkaline Phosphatase 44 (38-126) U/L Total Protein 7.2 (6.3-8.2) g/dL Albumin 3.7 (3.5-5.0) g/dL Calcium panel 06/18/19 Range/Units 06:22 Calcium 8.5 (8.4-10.2) mg/dL Albumin 3.7 (3.5-5.0) g/dL Pituitary panel 06/18/19 Range/Units 06:22 Sodium 137 (137-145) mmol/L Potassium 3.6 (3.5-5.1) mmol/L Chloride 101 (98-107) mmol/L Carbon Dioxide 25 (22-30) mmol/L BUN 5 L (7-17) mg/dL Creatinine 0.76 (0.52-1.04) mg/dL Glucose 91 (74-99) mg/dL Calcium 8.5 (8.4-10.2) mg/dL Adrenal panel 06/18/19 Range/Units 06:22 Sodium 137 (137-145) mmol/L Potassium 3.6 (3.5-5.1) mmol/L Chloride 101 (98-107) mmol/L Carbon Dioxide 25 (22-30) mmol/L BUN 5 L (7-17) mg/dL Creatinine 0.76 (0.52-1.04) mg/dL Glucose 91 (74-99) mg/dL Calcium 8.5 (8.4-10.2) mg/dL Total Bilirubin 0.3 (0.2-1.3) mg/dL AST 21 (14-36) U/L ALT 8 (4-34) U/L Alkaline Phosphatase 44 (38-126) U/L Total Protein 7.2 (6.3-8.2) g/dL Albumin 3.7 (3.5-5.0) g/dL <Fredy Polo - Last Filed: 06/18/19 11:16> History of Present Illness History of present illness: As above. Patient admitted with complaints of abdominal pain that have been improving since admission. Patient describes liquid stools prior to admission but mixed with the liquid stools were some very hard portions of stool. Since that time the patient has had difficulty with any bowel activity. Today she did have a small bowel that was very hard area CAT scan reviewed. Contrast enhanced formed stool consistent with constipation noted throughout the colon. Suspect constipation continuing to her symptoms. Will provide one bottle of magnesium citrate at this time. Monitor this patient's symptoms. Surgical - Exam Vital Signs Temp Pulse Resp BP Pulse Ox 97.7 F 80 18 139/74 98 06/16/19 11:49 06/16/19 11:49 06/16/19 11:49 06/16/19 11:49 06/16/19 11:49 Results - Labs 06/18/19 06:22 06/18/19 06:22 Abnormal Lab Results - Last 24 Hours (Table) 06/16/19 06/18/19 06/18/19 Range/Units 12:25 06:22 06:22 RBC 3.64 L (3.80-5.40) m/uL Hgb 11.3 L (11.4-16.0) gm/dL Lymphocytes # 0.4 L (1.0-4.8) k/uL BUN 5 L (7-17) mg/dL Iron 44 L (50-170) ug/dL Microbiology - Last 24 Hours (Table) 06/16/19 12:38 Urine Culture - Preliminary Urine,Voided Gram Neg Bacilli 06/16/19 12:25 Blood Culture - Preliminary Blood No Growth after 24 hours Diabetes panel 06/18/19 Range/Units 06:22 Sodium 137 (137-145) mmol/L Potassium 3.6 (3.5-5.1) mmol/L Chloride 101 (98-107) mmol/L Carbon Dioxide 25 (22-30) mmol/L BUN 5 L (7-17) mg/dL Creatinine 0.76 (0.52-1.04) mg/dL Glucose 91 (74-99) mg/dL Calcium 8.5 (8.4-10.2) mg/dL AST 21 (14-36) U/L ALT 8 (4-34) U/L Alkaline Phosphatase 44 (38-126) U/L Total Protein 7.2 (6.3-8.2) g/dL Albumin 3.7 (3.5-5.0) g/dL Calcium panel 06/18/19 Range/Units 06:22 Calcium 8.5 (8.4-10.2) mg/dL Albumin 3.7 (3.5-5.0) g/dL Pituitary panel 06/18/19 Range/Units 06:22 Sodium 137 (137-145) mmol/L Potassium 3.6 (3.5-5.1) mmol/L Chloride 101 (98-107) mmol/L Carbon Dioxide 25 (22-30) mmol/L BUN 5 L (7-17) mg/dL Creatinine 0.76 (0.52-1.04) mg/dL Glucose 91 (74-99) mg/dL Calcium 8.5 (8.4-10.2) mg/dL Adrenal panel 06/18/19 Range/Units 06:22 Sodium 137 (137-145) mmol/L Potassium 3.6 (3.5-5.1) mmol/L Chloride 101 (98-107) mmol/L Carbon Dioxide 25 (22-30) mmol/L BUN 5 L (7-17) mg/dL Creatinine 0.76 (0.52-1.04) mg/dL Glucose 91 (74-99) mg/dL Calcium 8.5 (8.4-10.2) mg/dL Total Bilirubin 0.3 (0.2-1.3) mg/dL AST 21 (14-36) U/L ALT 8 (4-34) U/L Alkaline Phosphatase 44 (38-126) U/L Total Protein 7.2 (6.3-8.2) g/dL Albumin 3.7 (3.5-5.0) g/dL
[2019-06-18] MEDS ORDERED: MAGNESIUM CITRATE 296 ML BOTTLE PO ONE (12:00)
[2019-06-18] MEDS: POLYETHYLENE GLYCOL 3350 17 GM POWD.PACK PO SCH (16:52)
--- NOTE | 2019-06-18 17:22 | P.PN ---
Subjective Progress Note Date: 06/18/19 Principal diagnosis: Lung Cancer with Diarrhea, and colitis Discussed with Surgery and Primary team and felt to be a picture of severe constipation and stool within the colon. Objective - Vital Signs Vital signs: Vital Signs Temp 98 F 06/18/19 12:07 Pulse 86 06/18/19 16:00 Resp 20 06/18/19 16:00 BP 191/80 06/18/19 12:07 Pulse Ox 95 06/18/19 12:07 Intake & Output 06/17/19 06/18/19 06/18/19 18:59 06:59 18:59 Intake Total 2180 825 1980 Balance 2180 825 1979 Intake: Intake, IV Titration 1100 825 900 Amount Potassium Chloride 20 meq 100 In Water For Injection 1 100ml.bag @ 50 mls/hr IVPB ONCE STA Rx#: [id number] Sodium Chloride 0.9% 1, 900 825 900 000 ml @ 75 mls/hr IV . [id number] [facility] Rx#:[id number] metroNIDAZOLE-NS PMX 500 100 mg In Saline 1 100ml.bag @ 100 mls/hr IVPB Q8HR [facility] Rx#:[id number] Oral 1080 1080 Other: Voiding Method Toilet Toilet Toilet # Voids 3 1 4 - Exam Gen: ALert and Oriented Head: AC, NT Neck: Supple HEaart: RRR Lungs: DIminished, no jincreased effort Abd: Obese, Soft Ex: Gen Edema Mood: Calm - Labs CBC & Chem 7: 06/18/19 06:22 06/18/19 06:22 Labs: Abnormal Lab Results - Last 24 Hours (Table) 06/16/19 06/18/19 06/18/19 Range/Units 12:25 06:22 06:22 RBC 3.64 L (3.80-5.40) m/uL Hgb 11.3 L (11.4-16.0) gm/dL Lymphocytes # 0.4 L (1.0-4.8) k/uL BUN 5 L (7-17) mg/dL Iron 44 L (50-170) ug/dL Microbiology - Last 24 Hours (Table) 06/16/19 12:38 Urine Culture - Preliminary Urine,Voided Gram Neg Bacilli 06/16/19 12:25 Blood Culture - Preliminary Blood No Growth after 24 hours Assessment and Plan Plan: Assessment and Recommendations: 1. Extensive Stage Small Cell Lung Cancer: - Status Post Cycle 2 Chemo 05/27 - Last cycle held one week, due 06/21 due to cytopenias and persistent diarrhea and esophagitis 2. Esophagitis: - Likely secondary to radiation - Supportive Care - Continue carafate 3. Diarrhea and Abdominal Pain: - CT reviewed Colitis - Stool Studies - Surgical consultation to evaluate for ischemia, they feel this is a picture of severe constipation with stool throughout colon 4. Normocytic Anemia: - Likely dilution, nut will check iron studies 5. Hypokalemia: - Check Mag and Supp per protocol Discussed with Primary team Plan: - Aggressive bowel regimen and education for outpatient care - OK to restart chemotherapy as scheduled next week Thank you for allowing us to follow with you Physician Attest: I have completed the full history and physical and agree with above dictation, dictated as a scribe
[2019-06-18] MEDS: LEVOFLOXACIN 750MG-D5W PMX 750 MG in DEXTROSE/WATER 1 150ML.BAG IVPB SCH (20:50)
--- NOTE | 2019-06-18 20:53 | P.PN ---
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 On arrival to the ER her vital signs were within normal limits. Laboratory analysis was essentially unremarkable. Urinalysis was negative and coronal virus PCR was not detected. CT abdomen and pelvis showed moderate distal colitis with additional mild colitis in the mid transverse colon. She was started on Levaquin and Flagyl and admitted for further monitoring. Oncology was consulted and was concerned for possible ischemic colitis, stool studies ordered. Patient did not have a bowel movement until 06/17 and it was hard and well formed and stool studies canceled. Seen by surgery who felt she was having severe diarrhea and need increased bowel regiment. Patient seen and examined at bedside. She states she had a bowel movement that was hard like stones. No nausea or vomiting today. Tolerating her diet but still having pain from her esophagitis. No chest pain or shortness of breath. Objective - Vital Signs Vital signs: Vital Signs Temp 98 F 06/18/19 12:07 Pulse 86 06/18/19 16:00 Resp 20 06/18/19 16:00 BP 191/80 06/18/19 12:07 Pulse Ox 95 06/18/19 12:07 Intake & Output 06/18/19 06/18/19 06/19/19 06:59 18:59 06:59 Intake Total 825 1979 Balance 825 1979 Intake: Intake, IV Titration 825 900 Amount Sodium Chloride 0.9% 1, 825 900 000 ml @ 75 mls/hr IV . [id number] [facility] Rx#:[id number] Oral 1080 Other: Voiding Method Toilet Toilet # Voids 1 4 - Exam General: non toxic, no distress, appears at stated age, obese Derm: warm, dry Head: atraumatic, normocephalic, symmetric Eyes: EOMI, no lid lag, anicteric sclera Mouth: no lip lesion, mucus membranes moist Cardiovascular: S1S2 reg, no murmur, positive posterior tibial pulse bilateral, Lungs: CTA bilateral, no rhonchi, no rales , no accessory muscle use Abdominal: soft, tender to palpation right left lower quadrant, no guarding, no appreciable organomegaly Ext: no gross muscle atrophy, no edema, no contractures Neuro: CN II-XI grossly intact, no focal neuro deficits Psych: Alert, oriented, appropriate affect - Labs CBC & Chem 7: 06/18/19 06:22 06/18/19 06:22 Labs: Abnormal Lab Results - Last 24 Hours (Table) 06/16/19 06/18/19 06/18/19 Range/Units 12:25 06:22 06:22 RBC 3.64 L (3.80-5.40) m/uL Hgb 11.3 L (11.4-16.0) gm/dL Lymphocytes # 0.4 L (1.0-4.8) k/uL BUN 5 L (7-17) mg/dL Iron 44 L (50-170) ug/dL Microbiology - Last 24 Hours (Table) 06/16/19 12:25 Blood Culture - Preliminary Blood No Growth after 48 hours 06/16/19 12:38 Urine Culture - Preliminary Urine,Voided Gram Neg Bacilli Assessment and Plan Assessment: Colitis with intractable abdominal pain due to constipation - Surgery recs apprecited: bowel regiment - levaquin and flagylchanged to PO - Full liquids - pain control - antiemetics - IVF gentle with hx of CHF Radiation esophagitis - Carafate to BID - FUll liquids - PPI Small cell lung Ca - Recent chemo 3 weeks ago and radiation 1 month ago for SVC syndrome - Oncology recs HTN, controlled - resume home medications CHF unknown type, controlled - Lisinopril, Toprol, Aldactone Thrush - difulucan Asymptomatic bacturia DVT prophylaxis: Lovenox Discussed with: Patient, nursing, oncology, Mildred Sands NP Anticipated discharge date: 1-[address]: home A total of 25 minutes was spent on the care of this complex patient more than 50% of the time was spent in counseling and care coordination.
[2019-06-18] MEDS: metroNIDAZOLE 500 MG TAB PO SCH (20:55)
[2019-06-18] MEDS ORDERED: LEVOFLOXACIN 500 MG TAB PO SCH (21:00)
[2019-06-19] MEDS: SODIUM CHLORIDE 0.9% 1,000 ML IV SCH (04:38)
[2019-06-19 04:54] VITALS: BP 169/72; PULSE 78; RESP 24; TEMP 97.8
[2019-06-19 06:15] LABS: HCT 31.8 % (34.0-46.0); HGB 10.6 gm/dL (11.4-16.0); MCH 31.3 pg (25.0-35.0); MCHC 33.2 g/dL (31.0-37.0); MCV 94.4 fL (80.0-100.0); Mean Platelet Volume 7.3; Platelet Count 462 k/uL (150-450); RBC 3.37 m/uL (3.80-5.40); RDW 14.8 % (11.5-15.5); WBC 5.5 k/uL (3.8-10.6)
[2019-06-19 06:28] LABS: African American GFR (CKD) >90 (>60 ml/min/1.73 sqM); Anion Gap 12 mmol/L; Blood Urea Nitrogen 4 mg/dL (7-17); Calcium 8.5 mg/dL (8.4-10.2); Carbon Dioxide 23 mmol/L (22-30); Chloride 101 mmol/L (98-107); Glucose 99 mg/dL (74-99); Non-African American GFR(CKD) 85 (>60 ml/min/1.73 sqM); Potassium 3.5 mmol/L (3.5-5.1); Sodium 136 mmol/L (137-145)
[2019-06-19] MEDS ORDERED: PANTOPRAZOLE 40 MG TABLET PO SCH (07:30)
[2019-06-19] MEDS: POLYETHYLENE GLYCOL 3350 17 GM POWD.PACK PO SCH ×2 (08:45→11:25)
[2019-06-19] MEDS: METOPROLOL SUCCINATE (ER) 50 MG TAB.ER.24H PO SCH (08:45)
[2019-06-19] MEDS: FLUCONAZOLE 100 MG TAB PO SCH (08:46)
[2019-06-19] MEDS: metroNIDAZOLE 500 MG TAB PO SCH (08:46)
[2019-06-19] MEDS: LISINOPRIL 10 MG TAB PO SCH (08:46)
[2019-06-19] MEDS: ENOXAPARIN 40 MG/0.4 ML SYRINGE SQ SCH (08:46)
[2019-06-19] MEDS: FAMOTIDINE 20 MG TAB PO SCH (08:46)
[2019-06-19] MEDS: SUCRALFATE 1 GM TAB PO SCH (08:46)
[2019-06-19] MEDS: SPIRONOLACTONE 25 MG TAB PO SCH (08:46)
[2019-06-19] MEDS: MAGNESIUM OXIDE 400 MG TAB PO SCH (08:46)
[2019-06-19] MEDS: ASPIRIN 81 MG PO SCH (08:46)
[2019-06-19] MEDS: BACITRACIN 500 UNIT/GM OINT 28.4 GM TUBE TOPICAL SCH (08:47)
--- NOTE | 2019-06-19 12:51 | P.PN ---
Subjective Progress Note Date: 06/19/19 CHIEF COMPLAINT: Colitis HISTORY OF PRESENT ILLNESS: The patient is a 69-year-old female with history of small cell cancer, morbid obesity was admitted for colitis. Since yesterday, she received magnesium citrate. She reports abdominal pain has improved. She is passing flatus and having bowel movements and tolerating diet. ROS: No reports of nausea and vomiting. No fevers or chills. No new chest pain. No productive sputum PHYSICAL EXAM: VITAL SIGNS: Reviewed CONSTITUTIONAL: Well developed and in no acute distress. EYES: Conjuctivae without sclera icterus. Extraocular movements grossly intact. HEAD, EARS, NOSE, THROAT: Moist buccal mucosa. Head is atraumatic, normocephalic. Hears conversational speech. No nasal drainage. NECK: Supple. No thyroidomegaly. RESPIRATORY: Non-labored respirations and equal bilateral excursions. CARDIOVASCULAR: Palpable 2+ radial pulses. ABDOMEN: Protuberant. No peritonitis. MUSCULOSKELETAL: No gross deformity of the lower extremities noted. No clubbing. No cyanosis. SKIN: Good skin turgor. Well perfused. NEUROLOGIC: Cranial nerves I through XII grossly intact. No focal or lateralizing signs. PSYCH: Appropriate affect. Alert and oriented to person, place and time. CLINICAL LABS: White blood cell count normal STUDIES: CT of the abdomen and pelvis independently review demonstrating modest pertinent for colon including of the descending colon and sigmoid colon. ASSESSMENT: 1. Colitis 2. Severe constipation 3. Small cell cancer of the lung PLAN: 1. Clinically she is doing better. Diet as tolerated. 2. Recommend bowel regimen. Patient reports taking MiraLAX every other day. Recommend MiraLAX daily. 3. Patient cleared from a surgical standpoint for discharge once medically cleared Objective - Vital Signs Vital signs: Vital Signs Temp 97.8 F 06/19/19 04:52 Pulse 78 06/19/19 04:52 Resp 24 06/19/19 04:52 BP 169/72 06/19/19 04:52 Pulse Ox 93 L 06/19/19 04:52 Intake & Output 06/18/19 06/19/19 06/19/19 18:59 06:59 18:59 Intake Total 1979 2249 Balance 1979 2249 Intake: Intake, IV Titration 900 1050 Amount Levofloxacin 750Mg-D5w 150 Pmx 750 mg In Dextrose/ Water 1 150ml.bag @ 100 mls/hr IVPB Q24H [facility] Rx#: [id number] Sodium Chloride 0.9% 1, 900 900 000 ml @ 75 mls/hr IV . [id number] [facility] Rx#:[id number] Oral 1080 1200 Other: Voiding Method Toilet Toilet Toilet # Voids 4 3 # Bowel Movements 1 - Labs CBC & Chem 7: 06/19/19 05:52 06/19/19 05:52 Labs: Abnormal Lab Results - Last 24 Hours (Table) 06/19/19 06/19/19 Range/Units 05:52 05:52 RBC 3.37 L (3.80-5.40) m/uL Hgb 10.6 L (11.4-16.0) gm/dL Hct 31.8 L (34.0-46.0) % Plt Count 462 H (150-450) k/uL Sodium 136 L (137-145) mmol/L BUN 4 L (7-17) mg/dL Microbiology - Last 24 Hours (Table) 06/16/19 12:38 Urine Culture - Final Urine,Voided Klebsiella pneumoniae 06/16/19 12:25 Blood Culture - Preliminary Blood No Growth after 48 hours Assessment and Plan (1) Morbid obesity due to excess calories Current Visit: Yes Status: Acute Code(s): E66.01 - MORBID (SEVERE) OBESITY DUE TO EXCESS CALORIES SNOMED Code(s): 038935601 (2) BMI over 35 Current Visit: Yes Status: Acute Code(s): NZK6475 - SNOMED Code(s): 818205978 (3) Colitis Current Visit: Yes Status: Acute Code(s): K52.9 - NONINFECTIVE GASTROENTERITIS AND COLITIS, UNSPECIFIED SNOMED Code(s): 46100652 (4) Small cell lung cancer, right upper lobe Current Visit: No Status: Acute Code(s): C34.11 - MALIGNANT NEOPLASM OF UPPER LOBE, RIGHT BRONCHUS OR LUNG SNOMED Code(s): 118113406
--- NOTE | 2019-06-19 16:17 | P.DS ---
Providers Date of admission: 06/16/19 15:26 Expected date of discharge: 06/19/19 Attending physician: Kylee Palm MD Consults: 06/16/19 15:26 Consult Physician Urgent Consulting Provider: Wesly Pugh Consult Reason/Comments: Oncological care Do you want consulting provider notified?: Already Contacted 06/17/19 18:33 Consult Physician Routine Consulting Provider: Fredy Polo Consult Reason/Comments: ? ischemia in bowel Do you want consulting provider notified?: Yes Primary care physician: Arian Forrest Hospital Course: Discharge Diagnosis: Colitis intractable abdominal pain secondary to constipation Radiation esophagitis Small cell lung cancer, extensive stage Hypertension Congestive heart failure Thrush Asymptomatic bacteriuria Morbid obesity with BMI 34.8 Hospital Course: Patient is a 69-year-old female with a wrist and diagnosis of small cell lung cancer status post 29 treatments of radiation therapy secondary to SVC syndrome and 2 cycles of chemotherapy carboplatin based, hypertension, congestive heart failure, cardiac arrhythmia requiring AICD placement, and arthritis who presented to the ER with complaints of diarrhea. On arrival to the ER her vital signs were within normal limits. Laboratory analysis was essentially unremarkable. Urinalysis was negative and coronal virus PCR was not detected. CT abdomen and pelvis showed moderate distal colitis with additional mild colitis in the mid transverse colon. She was started on Levaquin and Flagyl and admitted for further monitoring. Oncology was consulted and was concerned for possible ischemic colitis, stool studies ordered. Patient did not have a bowel movement until 06/17 and it was hard and well formed and stool studies canceled. Seen by surgery who felt she was having severe diarrhea and need increased bowel regiment. After taking prune juice, neurologic, or a bottle of magnesium citrate she had 4 bowel movements. Her cramping resided. She was tolerating her full liquid diet. She is determined stable for discharge home. She'll complete a seven-day course of antibiotics for possible bacterial colitis. Patient seen and examined at bedside. She had multiple bowel movements yesterday and her cramping is subsided, she is tolerating a diet, her nausea and vomiting is controlled. Vital signs reviewed and stable. General: Chronically ill-appearing, no distress, appears at stated age Derm: warm, dry Head: atraumatic, normocephalic, symmetric Eyes: EOMI, no lid lag, anicteric sclera Mouth: no lip lesion, mucus membranes moist Cardiovascular: S1S2 reg, no murmur, positive posterior tibial pulse bilateral, Lungs: CTA bilateral, no rhonchi, no rales , no accessory muscle use Abdominal: soft, nontender to palpation, no guarding, no appreciable organomegaly Ext: no gross muscle atrophy, no edema, no contractures Neuro: CN II-XI grossly intact, no focal neuro deficits Psych: Alert, oriented, appropriate affect A total of 25 minutes of time were spent preparing this complex discharge summary . Patient Condition at Discharge: Stable Plan - Discharge Summary Discharge Rx Participant: No New Discharge Prescriptions: New metroNIDAZOLE [Flagyl] 500 mg PO BID #8 tab Levofloxacin [Levaquin] 500 mg PO Q24H #4 tab Polyethylene Glycol 3350 [Miralax] 17 gm PO DAILY #0 powd.pack Pantoprazole [Protonix] 40 mg PO AC-BID #60 tablet.dr [place] Spironolactone [Aldactone] 12.5 mg PO DAILY Aspirin 81 mg PO DAILY Metoprolol Succinate (ER) [Toprol XL] 50 mg PO DAILY Magnesium Chloride [Mag64] 64 mg PO DAILY Lisinopril [Zestril] 10 mg PO DAILY ALPRAZolam [Xanax] 0.25 mg PO TID PRN PRN Reason: Anxiety Acetaminophen [Tylenol Arthritis] 650 mg PO BID PRN PRN Reason: Pain Sucralfate [Carafate] 1 gm PO QID Famotidine [Pepcid] 20 mg PO BID Carboxymethylcellulose Sodium [Refresh Tears] 1 drop BOTH EYES DAILY PRN PRN Reason: DRY EYES Fluconazole [Diflucan] 100 mg PO DAILY Hydrocodone/Acetaminophen [[place] 5-325] 1 tab PO Q6H PRN PRN Reason: Pain Ondansetron [Zofran] 4 mg PO Q4H PRN PRN Reason: Nausea Discharge Medication List Aspirin 81 mg PO DAILY 07/27/13 [History] Spironolactone [Aldactone] 12.5 mg PO DAILY 07/27/13 [History] Lisinopril [Zestril] 10 mg PO DAILY 03/19/19 [History] Magnesium Chloride [Mag64] 64 mg PO DAILY 03/19/19 [History] Metoprolol Succinate (ER) [Toprol XL] 50 mg PO DAILY 03/19/19 [History] ALPRAZolam [Xanax] 0.25 mg PO TID PRN 03/26/19 [History] Acetaminophen [Tylenol Arthritis] 650 mg PO BID PRN 04/13/19 [History] Famotidine [Pepcid] 20 mg PO BID 05/11/19 [History] Sucralfate [Carafate] 1 gm PO QID 05/11/19 [History] Carboxymethylcellulose Sodium [Refresh Tears] 1 drop BOTH EYES DAILY PRN 06/16/19 [History] Fluconazole [Diflucan] 100 mg PO DAILY 06/16/19 [History] Hydrocodone/Acetaminophen [[place] 5-325] 1 tab PO Q6H PRN 06/16/19 [History] Ondansetron [Zofran] 4 mg PO Q4H PRN 06/16/19 [History] Levofloxacin [Levaquin] 500 mg PO Q24H #4 tab 06/19/19 [Rx] Pantoprazole [Protonix] 40 mg PO AC-BID #60 tablet.dr 06/19/19 [Rx] Polyethylene Glycol 3350 [Miralax] 17 gm PO DAILY #0 powd.pack 06/19/19 [Rx] metroNIDAZOLE [Flagyl] 500 mg PO BID #8 tab 06/19/19 [Rx] Follow up Appointment(s)/Referral(s): Arian Forrest MD [Primary Care Provider] - 1-2 days Wesly Pugh MD [STAFF PHYSICIAN] - 1 Week Activity/Diet/Wound Care/Special Instructions: Activity: as tolerated Diet: as prior to admission Special Instructions: If no bowel movement in 2 days then miraLax. Discharge Disposition: HOME SELF-CARE
--- NOTE | 2019-06-22 16:47 | P.PN ---
Subjective Progress Note Date: 06/17/19 This is a late entry progress note. Patient was seen, evaluated, and examined by me on 06/16. , Patient is feeling slightly better today. She is still having pain mostly in the lower abdomen. She denies any nausea or vomiting. Objective - Vital Signs Vital signs: Vital Signs Temp 97.8 F 06/19/19 04:52 Pulse 78 06/19/19 04:52 Resp 24 06/19/19 04:52 BP 169/72 06/19/19 04:52 Pulse Ox 93 L 06/19/19 04:52 - Exam General: Patient is awake and alert. No acute distress HEENT: Within normal limit Lungs: Clear to auscultation bilaterally Heart: Normal S1, S2. No murmurs Abdomen: Soft, nontender, and nondistended Extremities: no edema - Labs CBC & Chem 7: 06/19/19 05:52 06/19/19 05:52 Labs: Microbiology - Last 24 Hours (Table) 06/16/19 12:25 Blood Culture - Preliminary Blood No Growth after 120 hours
== END 2019-06-19 17:22 | disposition home or self-care (01) | DRG 372 ==
LOC: EC 11:44 → 5NMEDONC 15:26
PROVIDERS: ADMIT Family Medicine; ATTEND Family Medicine
DX: A04.9 Bacterial intestinal infection, unspecified (principal); C34.11 Malignant neoplasm of upper lobe, right bronchus or lung; I42.8 Other cardiomyopathies; Z20.828 Contact with and (suspected) exposure to other viral communicable diseases; I50.9 Heart failure, unspecified; I11.0 Hypertensive heart disease with heart failure; M15.9 Polyosteoarthritis, unspecified; M47.816 Spondylosis without myelopathy or radiculopathy, lumbar region; K20.8 Other esophagitis; K59.00 Constipation, unspecified; D63.0 Anemia in neoplastic disease; E87.6 Hypokalemia; B37.9 Candidiasis, unspecified; E66.01 Morbid (severe) obesity due to excess calories; R82.71 Bacteriuria; Y84.2 Radiological procedure and radiotherapy as the cause of abnormal reaction of the patient, or of later complication, without mention of misadventure at the time of the procedure; Z68.34 Body mass index [BMI] 34.0-34.9, adult; Z79.82 Long term (current) use of aspirin; Z79.899 Other long term (current) drug therapy; Z87.01 Personal history of pneumonia (recurrent); Z95.810 Presence of automatic (implantable) cardiac defibrillator; Z92.3 Personal history of irradiation; Z87.891 Personal history of nicotine dependence; Z88.0 Allergy status to penicillin; Z88.7 Allergy status to serum and vaccine; Z88.8 Allergy status to other drugs, medicaments and biological substances; Z80.0 Family history of malignant neoplasm of digestive organs; Z82.49 Family history of ischemic heart disease and other diseases of the circulatory system; Z82.3 Family history of stroke
CPT/HCPCS: 36415; 71045; 74177; 80048; 80053; 81001; 82150; 82607; 82728; 82746; 83540; 83550; 83690; 83735; 84100; 85025; 85027; 85610; 85730; 87040; 87077; 87086; 87186; 87635; 96361; 96365; 96375; 99285

== ENCOUNTER 2019-07-24 19:13 | Inpatient (IN) | payer MEDICARE, BC ==
[2019-07-24 20:15] LABS: Anisocytosis Slight; MCH 31.4 pg (25.0-35.0); MCHC 32.4 g/dL (31.0-37.0); MCV 96.6 fL (80.0-100.0); Macrocytosis Slight
[2019-07-24 20:24] LABS: WBC 0.6 k/uL (3.8-10.6)
--- NOTE | 2019-07-24 20:33 | XR ---
EXAMINATION TYPE: XR chest 2V DATE OF EXAM: 07/24/2019 COMPARISON: 06/18/2019 HISTORY: Cough TECHNIQUE: FINDINGS: There is no heart failure nor confluent pneumonic infiltrate. There is mild increased densi ty in the right paratracheal region. There is a left axillary pacemaker. There are chest leads. There is right side central venous catheter with tip probably in the superior vena cava. IMPRESSION: No active cardiopulmonary disease. Right paratracheal density appears less than previous chest x-ray and may indicate favorable treatment response. No heart failure.
--- NOTE | 2019-07-24 20:42 | ED ---
SOB HPI - General Chief Complaint: Shortness of Breath Stated Complaint: SOB Time Seen by Provider: 07/24/19 19:21 Source: patient Mode of arrival: ambulatory Limitations: no limitations - History of Present Illness Initial Comments: 69-year-old female with history of lung cancer who currently underwent her last treatment of chemotherapy on Friday presents emergency department today for chief complaint of shortness of breath. Patient states that she was recently here for shortness of breath and told that she had thrush she was told it could possibly be in her lungs patient was on metronidazole as well as Diflucan. Patient states she had dark visualization of this and does not know any further information regards to possible lung fungal infection. Patient states that she was feeling okay until today when she developed the sensation that she could not expand her lungs, she states if feels like when I have had bronchitis in the past, denies substernal chest pressure/pain. States she has occasional pain with deep inspiration that was present on last visit. Denies leg swelling. States she did have some signs of CHF secondary to vena cava compression from the lung mass. SHe states throughout her course of lung cancer she has had hemoptysis here and there. She once has had a large amount (present on last visit), states it is back to her very small occasional amount, denies increase. Patient has no additional complaints. Denies fevers. Upon arrival she appears well there is no signs of acute distress.Denies history of previosu DVT/PE.Take daily baby aspirin. - Related Data Home Medications Medication Instructions Recorded Confirmed Aspirin 81 mg PO DAILY 07/27/13 07/24/19 Spironolactone [Aldactone] 12.5 mg PO DAILY 07/27/13 07/24/19 Lisinopril [Zestril] 10 mg PO DAILY 03/19/19 07/24/19 Magnesium Chloride [Mag64] 64 mg PO DAILY 03/19/19 07/24/19 Metoprolol Succinate (ER) [Toprol 50 mg PO DAILY 03/19/19 07/24/19 XL] ALPRAZolam [Xanax] 0.25 mg PO Q8H PRN 03/26/19 07/24/19 Acetaminophen [Tylenol Arthritis] 650 mg PO BID PRN 04/13/19 07/24/19 Famotidine [Pepcid] 20 mg PO BID 05/11/19 07/24/19 Sucralfate [Carafate] 1 gm PO QID 05/11/19 07/24/19 Carboxymethylcellulose Sodium 1 drop BOTH EYES DAILY PRN 06/16/19 07/24/19 [Refresh Tears] Hydrocodone/Acetaminophen [[place] 1 tab PO Q6H PRN 06/16/19 07/24/19 5-325] Ondansetron [Zofran] 4 mg PO Q4H PRN 06/16/19 07/24/19 Albuterol Nebulized [Ventolin 2.5 mg INHALATION RT-TID PRN 07/24/19 07/24/19 Nebulized] Cholecalciferol [Vitamin D3 (25 5,000 unit PO DAILY 07/24/19 07/24/19 Mcg = 1000 Iu)] Previous Rx's Medication Instructions Recorded Pantoprazole [Protonix] 40 mg PO AC-BID #60 tablet. 06/19/19 Allergies Allergy/AdvReac Type Severity Reaction Status Date / Time losartan [Losartan] Allergy Severe Rash/Hives Verified 07/24/19 22:01 Penicillins Allergy Severe Rash/Hives Verified 07/24/19 22:01 cortisone [Cortisone] AdvReac Severe flushed Verified 07/24/19 22:01 skin, depression Tetanus Vaccines and Toxoid AdvReac Severe huge Verified 07/24/19 22:01 [Tetanus Vaccines & Toxoid] localized swelling Review of Systems ROS Statement: Those systems with pertinent positive or pertinent negative responses have been documented in the HPI. ROS Other: All systems not noted in ROS Statement are negative. Past Medical History Past Medical History: Heart Failure, Hypertension, Osteoarthritis (OA), Pneumonia, Syncope Additional Past Medical History / Comment(s): P malignant HTN with pulmonary vascular congestion/R upper lung mass to be followed up upon. 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 History of Any Multi-Drug Resistant Organisms: None Reported Past Surgical History: Pacemaker Additional Past Surgical History / Comment(s): 2013 BiV AICD/generator change 10/2018, 2013 cardiac cath Past Anesthesia/Blood Transfusion Reactions: Unable to Obtain Additional Past Anesthesia/Blood Transfusion Reaction / Comment(s): Pt hsa never had general or spinal anesthesia. Type of Cardiac Device: Biventricular Pacemaker, AICD Device Placement Date:: 2013 Past Psychological History: No Psychological Hx Reported Smoking Status: Former smoker Past Alcohol Use History: None Reported Past Drug Use History: None Reported - Past Family History Brother(s) Family Medical History: Cancer Additional Family Medical History / Comment(s): pancreatic cancer Father Family Medical History: CVA/TIA, Hypertension Additional Family Medical History / Comment(s): third degree block, stroke Mother Family Medical History: Hypertension General Exam Limitations: no limitations Course Vital Signs 07/24/19 07/24/19 07/24/19 19:17 20:12 21:06 Temperature 97.8 F 97.3 F L Pulse Rate 73 83 Respiratory 18 20 18 Rate Blood Pressure 156/66 158/72 O2 Sat by Pulse 99 100 Oximetry 07/24/19 07/24/19 22:57 23:00 Temperature 97.8 F Pulse Rate 79 83 Respiratory 18 20 Rate Blood Pressure 134/67 O2 Sat by Pulse 100 Oximetry Procedures - [facility] Protocol (Time Out) Nurse: Torin Galvan Medical Decision Making - Medical Decision Making 69yo female presenting today for cc of SOB. Lung CA pt. Dimer elevated-no PE however findings concernign for reactivated TB. Patient denies history of TB/exposure. Pt currently neutropenic secondary to chemotherapy treatment. Troponin (-). EKg no acute findings. Patient will be admitted for ID and pulmonary consult. She is agreeable to admission, discussed case with attending Dr. Bran who will discuss case with Dr. Hackett - Lab Data Result diagrams: 07/24/19 20:00 07/24/19 20:00 Lab Results 07/24/19 07/24/19 07/24/19 Range/Units 20:00 20:00 20:00 WBC 0.6 L* (3.8-10.6) k/uL RBC 5.80 H (3.80-5.40) m/uL Hgb 18.2 H D (11.4-16.0) gm/dL Hct 56.0 H (34.0-46.0) % MCV 96.6 (80.0-100.0) fL MCH 31.4 (25.0-35.0) pg MCHC 32.4 (31.0-37.0) g/dL RDW 17.0 H (11.5-15.5) % Plt Count 52 L D (150-450) k/uL Neutrophils # [employer]SH[employer] Differential Comment Manual Slide Review Performed Anisocytosis Slight Macrocytosis Slight PT (9.0-12.0) sec INR (<1.2) APTT (22.0-30.0) sec D-Dimer (<0.60) mg/L FEU Sodium 134 L (137-145) mmol/L Potassium 4.3 (3.5-5.1) mmol/L Chloride 102 (98-107) mmol/L Carbon Dioxide 21 L (22-30) mmol/L Anion Gap 11 mmol/L BUN 18 H (7-17) mg/dL Creatinine 0.91 (0.52-1.04) mg/dL Est GFR (CKD-EPI)AfAm 73 (>60 ml/min/1.73 sqM) Est GFR (CKD-EPI)NonAf 64 (>60 ml/min/1.73 sqM) Glucose 95 (74-99) mg/dL Plasma Lactic Acid Yousif 0.8 (0.7-2.0) mmol/L Calcium 9.7 (8.4-10.2) mg/dL Total Bilirubin 0.3 (0.2-1.3) mg/dL AST 20 (14-36) U/L ALT 8 (4-34) U/L Alkaline Phosphatase 42 (38-126) U/L Troponin I (0.000-0.034) ng/mL NT-Pro-B Natriuret Pep pg/mL Total Protein 7.6 (6.3-8.2) g/dL Albumin 4.0 (3.5-5.0) g/dL 07/24/19 07/24/19 07/24/19 Range/Units 20:00 20:00 20:59 WBC (3.8-10.6) k/uL RBC (3.80-5.40) m/uL Hgb (11.4-16.0) gm/dL Hct (34.0-46.0) % MCV (80.0-100.0) fL MCH (25.0-35.0) pg MCHC (31.0-37.0) g/dL RDW (11.5-15.5) % Plt Count (150-450) k/uL Neutrophils # Differential Comment Manual Slide Review Anisocytosis Macrocytosis PT 9.5 (9.0-12.0) sec INR 0.9 (<1.2) APTT 25.3 (22.0-30.0) sec D-Dimer 10.97 H (<0.60) mg/L FEU Sodium (137-145) mmol/L Potassium (3.5-5.1) mmol/L Chloride (98-107) mmol/L Carbon Dioxide (22-30) mmol/L Anion Gap mmol/L BUN (7-17) mg/dL Creatinine (0.52-1.04) mg/dL Est GFR (CKD-EPI)AfAm (>60 ml/min/1.73 sqM) Est GFR (CKD-EPI)NonAf (>60 ml/min/1.73 sqM) Glucose (74-99) mg/dL Plasma Lactic Acid Yousif (0.7-2.0) mmol/L Calcium (8.4-10.2) mg/dL Total Bilirubin (0.2-1.3) mg/dL AST (14-36) U/L ALT (4-34) U/L Alkaline Phosphatase (38-126) U/L Troponin I <0.012 (0.000-0.034) ng/mL NT-Pro-B Natriuret Pep 279 pg/mL Total Protein (6.3-8.2) g/dL Albumin (3.5-5.0) g/dL Disposition Clinical Impression: SOB (shortness of breath), Concern about pulmonary tuberculosis without diagnosis, Hx of cancer of lung Disposition: ADMITTED IP TO THIS [facility] Condition: Serious Is patient prescribed a controlled substance at d/c from ED?: No Referrals: Arian Forrest MD [Primary Care Provider] - 1-2 days Time of Disposition: 00:04 Decision to Admit Reason: Admit from EC Decision Date: 07/25/19 Decision Time: 00:04
[2019-07-24 20:45] LABS: Calcium 9.7 mg/dL (8.4-10.2); Potassium 4.3 mmol/L (3.5-5.1); Total Bilirubin 0.3 mg/dL (0.2-1.3); Total Protein 7.6 g/dL (6.3-8.2)
[2019-07-24 20:56] LABS: Platelet Count 52 k/uL (150-450)
[2019-07-24 21:37] LABS: INR 0.9 (<1.2); Partial Thromboplastin Time 25.3 sec (22.0-30.0); Prothrombin Time 9.5 sec (9.0-12.0)
[2019-07-24 21:49] LABS: D-Dimer 10.97 mg/L FEU (<0.60)
--- NOTE | 2019-07-24 23:26 | CT ---
EXAMINATION TYPE: CT chest angio for PE DATE OF EXAM: 07/24/2019 COMPARISON: 06/02/2019 HISTORY: Elevated d-dimer. CT DLP: 606.2 mGycm Automated exposure control for dose reduction was used. CONTRAST: Performed with IV Contrast, patient injected with 100 mL of Isovue 370. There are 3-D post processed images. There is 4.8 x 4.6 cm partly calcified right paratracheal mass. There is normal branching pattern of the great vessels on the aortic arch. There is normal contrast opacification of the pulmonary arterie s. I see no filling defect. Thoracic aorta appears intact without evidence of aneurysm or dissection. Heart size is normal. There is no pericardial effusion. There is some nodular infiltrates with some spiculation involving both upper lobes. There is minimal pleural thickening at the lung apices. Infil trates measure up to 2 cm. There is no pleural effusion. There is no pericardial effusion. Heart size is normal. There are no hilar masses. The bony thorax is intact. There is 2 cm low-density left adrenal mass. Unchanged. IMPRESSION: Large partly calcified paratracheal mass unchanged compared to recent CT scan. Multiple bilateral upp er lobe discrete pulmonary infiltrates also not significantly different than last exam. The appearanc e of the lungs and mediastinum could relate to sequela of reactivation tuberculosis. No evidence of pulmonary embolism. Stable left adrenal mass.
[2019-07-25] MEDS ORDERED: LEVOFLOXACIN 750MG-D5W PMX 750 MG in DEXTROSE/WATER 1 150ML.BAG IVPB STA (00:03)
[2019-07-25] MEDS ORDERED: NALOXONE 0.4 MG/ML 1 ML VIAL IV PRN (00:05)
[2019-07-25] MEDS ORDERED: ACETAMINOPHEN TAB 325 MG TAB PO STA (00:41)
[2019-07-25] MEDS: SODIUM CHLORIDE 0.9% 1,000 ML IV SCH ×2 (00:57→15:46)
[2019-07-25] MEDS: HYDROcodone/APAP 5-325MG 1 EACH TAB PO PRN ×2 (04:08→10:05)
[2019-07-25] MEDS ORDERED: ONDANSETRON 4 MG TAB PO PRN (11:20)
[2019-07-25] MEDS ORDERED: ALPRAZolam 0.25 MG TAB PO PRN (11:20)
[2019-07-25] MEDS ORDERED: ARTIFICIAL TEARS-HYPROMELLOSE DROPS 15 ML BTL BOTH EYES PRN (11:20)
[2019-07-25] MEDS ORDERED: ALBUTEROL NEBULIZED 2.5 MG/3 ML INHALATION PRN (11:20)
[2019-07-25] MEDS: LISINOPRIL 10 MG TAB PO SCH (12:02)
[2019-07-25] MEDS: METOPROLOL SUCCINATE (ER) 50 MG TAB.ER.24H PO SCH (12:02)
[2019-07-25] MEDS: FAMOTIDINE 20 MG TAB PO SCH ×2 (12:02→20:39)
[2019-07-25] MEDS: MAGNESIUM OXIDE 400 MG TAB PO SCH (12:02)
[2019-07-25] MEDS: ASPIRIN 81 MG PO SCH (12:02)
[2019-07-25 13:14] LABS: HGB 18.2 gm/dL (11.4-16.0)
[2019-07-25] MEDS ORDERED: IPRATROPIUM-ALBUTEROL 3 ML NEB INHALATION PRN (13:26)
[2019-07-25] MEDS ORDERED: LEVOFLOXACIN 500 MG TAB PO SCH (13:30)
[2019-07-25] MEDS: IPRATROPIUM-ALBUTEROL 3 ML NEB INHALATION SCH ×2 (16:23→20:59)
[2019-07-25] MEDS: ACETAMINOPHEN TAB 325 MG TAB PO PRN (18:11)
[2019-07-25] MEDS ORDERED: SYMBICORT 160-4.5 MCG INHALER INHALATION SCH (20:00)
--- NOTE | 2019-07-25 20:55 | P.HPIM ---
History of Present Illness H&P Date: 07/25/19 Chief Complaint: Chest tightness History of presenting complaint: This is a pleasant 69-year-old patient of Dr. tolliver. Chronic stable medical conditions include hypertension, osteoarthritis, varicose veins, and pacemaker for complete heart block.. Patient diagnosed with extensive stage small cell lung cancer. Did finish her course of chemotherapy she says she believes her fifth cycle of weeks ago. Also completed 29 days of radiation treatment. Patient appetite has been fair. Patient also is good radiation esophagitis and is some pain in swallowing food when it gets down to the mid chest level. Recently the hospital with colitis finished chemotherapy. Patient now presents with feeling of chest tightness. No fever no chills. Slight cough with brownish green sputum. Admitted for the same. Feeling a bit better this morning. 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 No alcohol history. Smoked a pack and half to 2 packs a day for about 44 years. Stopped in 2012. Physical examination: VITAL SIGNS: 97.8, 73, 18, 156/66, 99% on room air GENERAL: BMI 34.8, sitting up in bed, not in distress EYES: Pupils equal. Conjunctiva pale HEENT: External appearance of nose and ears normal, oral cavity grossly normal patient NECK: Prominent neck veins; masses not palpable. HEART: First and second heart sounds are normal; mild edema. LUNGS: Respiratory rate increased, decreased breath sounds. ABDOMEN: Soft, nontender, liver spleen not palpable, no masses palpable. PSYCH: Alert and oriented x3; mood and affect normal. MUSCULOSKELETAL: Evidence of OA especially in the hands NEUROLOGICAL: Cranial nerves grossly intact; no facial asymmetry, power and sensation grossly intact. LYMPHATICS: No lymph nodes palpable in the axilla and neck INVESTIGATIONS, reviewed in the clinical context: White count 0.6 hemoglobin 18.2 platelets 52 potassium 4.3 creatinine 0.91 d- dimer 10.97 Troponin I is less than 0.012 proBNP to 79 EKG tracing personally reviewed by me-shows atrial sensed ventricular paced r hythm Chest x-ray film personally reviewed by me-maybe some chronic changes Assessment: -Acute COPD exacerbation and an ex-smoker, with acute bronchitis -Extensive stage small cell lung cancer status post 5 cycles of chemotherapy finished last week and 29 cycles of radiation treatment -Essential hypertension -Pacemaker for complete heart block -Primary osteoarthritis -Bilateral lower extremity varicose veins -Obesity BMI 34.8 -Radiation esophagitis with odynophagia -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 Also on Symbicort. We'll also had inhaled steroids and IV steroids. Overall feeling better. We'll also give doxycycline patient is already feeling better this morning. Watch for another 24 hours. Past Medical History Past Medical History: Heart Failure, Hypertension, Osteoarthritis (OA), Pneumonia, Syncope Additional Past Medical History / Comment(s): P malignant HTN with pulmonary vascular congestion/R upper lung mass to be followed up upon. 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 History of Any Multi-Drug Resistant Organisms: None Reported Past Surgical History: Pacemaker Additional Past Surgical History / Comment(s): 2013 BiV AICD/generator change 2013 cardiac cath Past Anesthesia/Blood Transfusion Reactions: Unable to Obtain Additional Past Anesthesia/Blood Transfusion Reaction / Comment(s): Pt hsa never had general or spinal anesthesia. Type of Cardiac Device: Biventricular Pacemaker, AICD Device Placement Date:: 2013 Past Psychological History: No Psychological Hx Reported Additional Psychological History / Comment(s): Pt resides alone. She is independent. Smoking Status: Never smoker Past Alcohol Use History: None Reported Additional Past Alcohol Use History / Comment(s): Pt started smoking in 1964 and quit in 2012. Past Drug Use History: None Reported - Past Family History Brother(s) Family Medical History: Cancer Additional Family Medical History / Comment(s): pancreatic cancer Father Family Medical History: CVA/TIA, Hypertension Additional Family Medical History / Comment(s): third degree block, stroke Mother Family Medical History: Hypertension Medications and Allergies Home Medications Medication Instructions Recorded Confirmed Type Aspirin 81 mg PO DAILY 07/27/13 07/24/19 History Spironolactone [Aldactone] 12.5 mg PO DAILY 07/27/13 07/24/19 History Lisinopril [Zestril] 10 mg PO DAILY 03/19/19 07/24/19 History Magnesium Chloride [Mag64] 64 mg PO DAILY 03/19/19 07/24/19 History Metoprolol Succinate (ER) [Toprol 50 mg PO DAILY 03/19/19 07/24/19 History XL] ALPRAZolam [Xanax] 0.25 mg PO Q8H PRN 03/26/19 07/24/19 History Acetaminophen [Tylenol Arthritis] 650 mg PO BID PRN 04/13/19 07/24/19 History Famotidine [Pepcid] 20 mg PO BID 05/11/19 07/24/19 History Sucralfate [Carafate] 1 gm PO QID 05/11/19 07/24/19 History Carboxymethylcellulose Sodium 1 drop BOTH EYES DAILY PRN 06/16/19 07/24/19 History [Refresh Tears] Hydrocodone/Acetaminophen [[place] 1 tab PO Q6H PRN 06/16/19 07/24/19 History 5-325] Ondansetron [Zofran] 4 mg PO Q4H PRN 06/16/19 07/24/19 History Pantoprazole [Protonix] 40 mg PO AC-BID #60 tablet. 06/19/19 07/24/19 Rx Albuterol Nebulized [Ventolin 2.5 mg INHALATION RT-TID PRN 07/24/19 07/24/19 History Nebulized] Cholecalciferol [Vitamin D3 (25 5,000 unit PO DAILY 07/24/19 07/24/19 History Mcg = 1000 Iu)] Allergies Allergy/AdvReac Type Severity Reaction Status Date / Time losartan [Losartan] Allergy Severe Rash/Hives Verified 07/25/19 10:17 Penicillins Allergy Severe Rash/Hives Verified 07/25/19 10:17 cortisone [Cortisone] AdvReac Severe flushed Verified 07/25/19 10:17 skin, depression Tetanus Vaccines and Toxoid AdvReac Severe huge Verified 07/25/19 10:17 [Tetanus Vaccines & Toxoid] localized swelling Physical Exam Vitals: Vital Signs Temp Pulse Pulse Resp BP BP Pulse Ox 07/25/19 07:12 97.9 F 93 16 112/63 100 07/25/19 02:42 97.8 F 80 16 121/54 99 07/25/19 01:48 97.8 F 81 18 120/67 100 07/25/19 01:00 78 20 100 07/25/19 00:00 78 20 100 07/24/19 23:00 83 20 07/24/19 22:57 97.8 F 79 18 134/67 100 07/24/19 21:06 97.3 F L 83 18 158/72 100 07/24/19 20:12 20 07/24/19 19:17 97.8 F 73 18 156/66 99 Intake and Output 07/24/19 07/25/19 07/25/19 22:59 06:59 14:59 Other: # Voids 1 # Bowel Movements 2 Weight 100.698 kg 100.698 kg Results CBC & Chem 7: 07/24/19 20:00 07/24/19 20:00 Labs: Abnormal Lab Results - Last 24 Hours (Table) 07/24/19 07/24/19 07/24/19 Range/Units 20:00 20:00 20:59 WBC 0.6 L* (3.8-10.6) k/uL RBC 5.80 H (3.80-5.40) m/uL Hgb 18.2 H D (11.4-16.0) gm/dL Hct 56.0 H (34.0-46.0) % RDW 17.0 H (11.5-15.5) % Plt Count 52 L D (150-450) k/uL D-Dimer 10.97 H (<0.60) mg/L FEU Sodium 134 L (137-145) mmol/L Carbon Dioxide 21 L (22-30) mmol/L BUN 18 H (7-17) mg/dL Microbiology - Last 24 Hours (Table) 07/25/19 03:07 Acid Fast Bacilli Culture - Preliminary Blood Thrombosis Risk Factor Assmnt - Choose All That Apply Any of the Below Risk Factors Present?: No Other Risk Factors: Yes Each Risk Factor Represents 2 Points: Age 61-74 years Thrombosis Risk Factor Assessment Total Risk Factor Score: 2 Thrombosis Risk Factor Assessment Level: Low Risk
[2019-07-25] MEDS: BUDESONIDE 1 MG/2 ML NEBU INHALATION SCH (21:11)
[2019-07-25] MEDS: DOXYCYCLINE 100 MG CAP PO SCH (21:27)
--- NOTE | 2019-07-25 23:21 | P.CONS ---
History of Present Illness - Reason for Consult Consult date: 07/25/[address] ?TB Requesting physician: Andrea Hackett - Chief Complaint Shortness of breath x 1 day - History of Present Illness Patient is a 69-year-old female with a past medical his significant for lung cancer for the patient has completed her radiation therapy and recently completed 5 treatment course of her chemotherapy about a week ago patient apparently was recently admitted to the hospital and has been treated for bronchitis for the patient was subsequent discharged home on Flagyl and and did have an improvement her symptom patient now presenting back to the hospital with 1 day history of increasing shortness of breath minimal exertion and even at r est she also have a cough which is moderate intensity with occasional sputum production no hemoptysis no pleuritic chest pain no nausea no vomiting no choking food no vomiting no diarrhea and no high-grade fever with the symptom the patient presented hospital yesterday afternoon on arrival to the hospital the patient has been afebrile she was noticed to be leukopenic with a white count of 0.6 creatinine was normal liver enzymes are normal patient did have a chest x-ray which shows no active cardiopulmonary disease right paratracheal density appears less than previous chest x-ray may indicate favorable treatment response subsequently the patient did have a CT angiogram that was read by the radiologist as large partially calcified paratracheal mass unchanged compared to old recent CT with multiple bilateral upper lobe pulmonary nodules not significantly different than her last exam of June 02, 2019 however he did mention in his note it could be sequelae of reactivation tuberculosis subse quently the patient has been admitted hospital I was asked to see the patient her with concern for this abnormal CT of the chest 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 Review of Systems Positive point has been mentioned in HPI rest of the systems are negative Past Medical History Past Medical History: Heart Failure, Hypertension, Osteoarthritis (OA), Pneumonia, Syncope Additional Past Medical History / Comment(s): P malignant HTN with pulmonary vascular congestion/R upper lung mass to be followed up upon. 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 History of Any Multi-Drug Resistant Organisms: None Reported Past Surgical History: Pacemaker Additional Past Surgical History / Comment(s): 2013 BiV AICD/generator change 2013 cardiac cath Past Anesthesia/Blood Transfusion Reactions: Unable to Obtain Additional Past Anesthesia/Blood Transfusion Reaction / Comm: Pt hsa never had general or spinal anesthesia. Type of Cardiac Device: Biventricular Pacemaker, AICD Device Placement Date:: 2013 Past Psychological History: No Psychological Hx Reported Additional Psychological History / Comment(s): Pt resides alone. She is independent. Smoking Status: Never smoker Past Alcohol Use History: None Reported Additional Past Alcohol Use History / Comment(s): Pt started smoking in 1964 and quit in 2012. Past Drug Use History: None Reported - Past Family History Brother(s) Family Medical History: Cancer Additional Family Medical History / Comment(s): pancreatic cancer Father Family Medical History: CVA/TIA, Hypertension Additional Family Medical History / Comment(s): third degree block, stroke Mother Family Medical History: Hypertension Medications and Allergies Home Medications Medication Instructions Recorded Confirmed Type Aspirin 81 mg PO DAILY 07/27/13 07/24/19 History Spironolactone [Aldactone] 12.5 mg PO DAILY 07/27/13 07/24/19 History Lisinopril [Zestril] 10 mg PO DAILY 03/19/19 07/24/19 History Magnesium Chloride [Mag64] 64 mg PO DAILY 03/19/19 07/24/19 History Metoprolol Succinate (ER) [Toprol 50 mg PO DAILY 03/19/19 07/24/19 History XL] ALPRAZolam [Xanax] 0.25 mg PO Q8H PRN 03/26/19 07/24/19 History Acetaminophen [Tylenol Arthritis] 650 mg PO BID PRN 04/13/19 07/24/19 History Famotidine [Pepcid] 20 mg PO BID 05/11/19 07/24/19 History Sucralfate [Carafate] 1 gm PO QID 05/11/19 07/24/19 History Carboxymethylcellulose Sodium 1 drop BOTH EYES DAILY PRN 06/16/19 07/24/19 History [Refresh Tears] Hydrocodone/Acetaminophen [[place] 1 tab PO Q6H PRN 06/16/19 07/24/19 History 5-325] Ondansetron [Zofran] 4 mg PO Q4H PRN 06/16/19 07/24/19 History Pantoprazole [Protonix] 40 mg PO AC-BID #60 tablet. 06/19/19 07/24/19 Rx Albuterol Nebulized [Ventolin 2.5 mg INHALATION RT-TID PRN 07/24/19 07/24/19 History Nebulized] Cholecalciferol [Vitamin D3 (25 5,000 unit PO DAILY 07/24/19 07/24/19 History Mcg = 1000 Iu)] Allergies Allergy/AdvReac Type Severity Reaction Status Date / Time losartan [Losartan] Allergy Severe Rash/Hives Verified 07/25/19 10:17 Penicillins Allergy Severe Rash/Hives Verified 07/25/19 10:17 cortisone [Cortisone] AdvReac Severe flushed Verified 07/25/19 10:17 skin, depression Tetanus Vaccines and Toxoid AdvReac Severe huge Verified 07/25/19 10:17 [Tetanus Vaccines & Toxoid] localized swelling Physical Exam Vitals: Vital Signs Temp Pulse Pulse Resp BP BP Pulse Ox 07/25/19 07:12 97.9 F 93 16 112/63 100 07/25/19 02:42 97.8 F 80 16 121/54 99 07/25/19 01:48 97.8 F 81 18 120/67 100 07/25/19 01:00 78 20 100 07/25/19 00:00 78 20 100 07/24/19 23:00 83 20 07/24/19 22:57 97.8 F 79 18 134/67 100 07/24/19 21:06 97.3 F L 83 18 158/72 100 07/24/19 20:12 20 07/24/19 19:17 97.8 F 73 18 156/66 99 Intake and Output 07/25/19 07/25/19 07/25/19 06:59 14:59 22:59 Other: # Voids 1 # Bowel Movements 2 Weight 100.698 kg GENERAL DESCRIPTION: Elderly female lying in bed, no distress. No tachypnea or accessory muscle of respiration use. HEENT: Shows Pallor , no scleral icterus. Oral mucous membrane is dry. NECK: Trachea central, no thyromegaly. LUNGS: Unlabored breathing. Decrease intensity breath sound. No wheeze or crackle. HEART: S1, S2, regular rate and rhythm. ABDOMEN: Soft, no tenderness , guarding or rigidity EXTREMITIES: No edema of feet. SKIN: No rash, no masses palpable. NEUROLOGICAL: The patient is awake, alert, oriented x3, mood and affect normal. Results CBC & Chem 7: 07/24/19 20:00 07/24/19 20:00 Labs: Abnormal Lab Results - Last 24 Hours (Table) 07/24/19 07/24/19 07/24/19 Range/Units 20:00 20:00 20:59 WBC 0.6 L* (3.8-10.6) k/uL RBC 5.80 H (3.80-5.40) m/uL Hgb 18.2 H D (11.4-16.0) gm/dL Hct 56.0 H (34.0-46.0) % RDW 17.0 H (11.5-15.5) % Plt Count 52 L D (150-450) k/uL D-Dimer 10.97 H (<0.60) mg/L FEU Sodium 134 L (137-145) mmol/L Carbon Dioxide 21 L (22-30) mmol/L BUN 18 H (7-17) mg/dL Microbiology - Last 24 Hours (Table) 07/25/19 03:07 Acid Fast Bacilli Culture - Preliminary Blood Assessment and Plan Assessment: - Patient presented to hospital with shortness of breath and cough which is more likely secondary tracheobronchitis with COPD exacerbation clinically doubt pneumonia and clinically doubt reactivation TB in this patient who have a regular negative skin test for TB about 10 years ago currently with no fever and the CT finding have not shown any worsening from a previous CT on 06/02/2019 during this time had the patient received chemotherapy, which in case of tuberculosis addition has been significant worsening and the radiology report is misleading. (1) Tracheobronchitis Current Visit: Yes Status: Acute Code(s): J40 - BRONCHITIS, NOT SPECIFIED ACUTE OR CHRONIC SNOMED Code(s): 50480469 (2) Abnormal CT scan, chest Current Visit: Yes Status: Acute Code(s): R93.89 - ABNORMAL FINDINGS ON DX IMAGING OF OTH BODY STRUCTURES SNOMED Code(s): 50426447055303229 Plan: 1-obtain a sputum for Gram stain and culture 2-Levaquin to continue along with bronchodilators and steroids 3-we will obtain a QuantiFERON-TB Gold test We will follow on clinical condition and cultures to further adjust medication if needed Thank you for this consultation we will follow the patient along with you Time with Patient: Greater than 30
--- NOTE | 2019-07-26 00:02 | CONS ---
CONSULTATION PULMONARY/CRITICAL CARE CONSULTATION: DATE OF CONSULTATION: July 25, 2019 This is a 69-year-old female with a history of small-cell lung cancer. The patient has undergone 4 cycles of chemotherapy and also 29 radiation treatments. She apparently presents to the emergency department with complaints of shortness of breath. She just finished some metronidazole for an infection as well as some Diflucan for oropharyngeal candidiasis. Anyway, the patient was seen in the emergency room. She had a CT scan done which shows some changes and apparently the radiologist was concerned about reactivated TB. She denies any fever or chills. She is coughing up minimal phlegm. She does not feel like she has got a significant lung issue at this time. She was hoping just to get some antibiotics and be discharged home and now she is in isolation. She had been seen by my partner earlier this year. She was found to have a large right upper lobe mass measuring 9.6 x 8.4 x 7 cm in size. It was also compressing the superior vena cava and she had his SVC syndrome. He did a transbronchial needle aspiration on her, which gave the diagnosis of small-cell lung cancer. Again, subsequent to that, she has undergone 4 cycles of chemotherapy and [address] Rubi. I believe her oncologist is Dr. Pugh. She also has a history of nonischemic cardiomyopathy with an ejection fraction of 20%, status post biventricular pacer/AICD placement, third-degree heart block, obesity, previous tobacco use, hypertension, and previous small right-sided pleural effusion. She did have thoracentesis and cytology and the fluid was negative. The patient is feeling a bit better. She is on a couple of liters of O2. She does have oxygen at home. Previously, she did have hemoptysis. Does not have that now. MEDICATIONS: Her home medications are reviewed. She is on aspirin, Aldactone, lisinopril, magnesium, metoprolol, Xanax, Tylenol, famotidine, Carafate, Refresh Tears, [place], Zofran, albuterol updrafts, vitamin D3, and Protonix. ALLERGIES: Allergies include LOSARTAN, PENICILLIN, CORTISONE, and TETANUS TOXOID. MEDICAL HISTORY: Her medical history includes CHF, hypertension, DJD, pneumonia, syncope, small cell lung cancer, status post chemoradiation, nonischemic cardiomyopathy, complete heart block, status post biventricular AICD placement, arthritis, and SVC syndrome. SURGICAL HISTORY: Surgical history includes a pacemaker, as mentioned above, as well as bronchoscopy earlier this year with transbronchial needle aspiration of a large right paratracheal right upper lobe lung mass. She has also had cardiac catheterization. SOCIAL HISTORY: Positive for previous tobacco use. She does not smoke currently. She denies any alcohol or illicit drug use. FAMILY HISTORY: Positive for a brother with pancreatic cancer, father with CVA and hypertension and third-degree heart block, and a mother with hypertension. REVIEW OF SYSTEMS: CONSTITUTIONAL: Negative. NEUROLOGIC: Negative. HEENT: Negative. CARDIOVASCULAR: Negative, PULMONARY: Shortness of breath/cough. GI: Negative. : Negative. RHEUMATOLOGIC: Negative. IMMUNOLOGIC: Negative ENDOCRINOLOGIC: Negative. DERMATOLOGIC: Negative. PHYSICAL EXAMINATION: VITAL SIGNS: Current vital signs are reviewed. Temperature is 97.9 heart rate 93, respiratory rate 16, blood pressure 112/63, mean 79, and 2 L saturations of 100%. GENERAL: She appears in no acute distress. There is no audible wheezing, use of accessory muscles or conversational dyspnea. HEENT: Examination is grossly unremarkable. Nasal O2 in place. NECK: Supple. Full range of motion. CARDIOVASCULAR: Examination reveals regular rhythm and rate. Heart rate 80 beats per minute. S1, S2 normal. A soft systolic murmur is noted. LUNGS: Reveal mostly clear breath sounds. No wheezes or rhonchi. No crackles. ABDOMEN: Soft. EXTREMITIES: Are intact. No cyanosis, clubbing, or edema. SKIN: Without rash. NEUROLOGIC: Examination is nonfocal. Chest x-ray from July 23 shows no active cardiopulmonary disease. There is a right paratracheal density which appears less than previous chest x-rays. A chest CT dated July 23 shows a 4.8 x 4.6 cm partly calcified right paratracheal mass. No filling defects are noted. Other changes are noted on the report of the CT scan. It does mention on the CT impression that the changes of the lungs or mediastinum could relate to sequelae of reactivation tuberculosis, which is why the patient is currently in isolation. LABS: Labs are reviewed. White count 0.6, hemoglobin 18.2, hematocrit 56.0, platelet count 52,000. PT 9.5, INR 0.9, PTT 25.3. D-dimer 10.97. Sodium 134, potassium 4.3 chloride 102, CO2 of 21. Anion gap 11. BUN and creatinine were 18 and 0.91. The rest of the comprehensive metabolic profile appears to be normal. MEDICATIONS: Current medications are reviewed. She is on Tylenol, albuterol updrafts, Xanax, Artificial Tears, aspirin, Pepcid, [place], Zestril, Mag-Ox, metoprolol, Narcan, Zofran, and Aldactone. ASSESSMENT: 1. Shortness of breath, likely related to a mild chronic obstructive pulmonary disease exacerbation/bronchitis, without evidence of pulmonary embolism on CT angiogram. 2. History of a relatively recent diagnosis of small-cell lung cancer, status post transbronchial needle aspiration of a right peritracheal mass, with pathology consistent with small cell lung cancer, status post 29 radiation treatments and 4 cycles of chemotherapy. 3. Bicytopenia. 4. Polycythemia. 5. History of heart failure. 6. Hypertension by history. 7. Degenerative joint disease. 8. History of syncope. 9. Nonischemic cardiomyopathy with ejection fraction of 20%. 10.Status post complete heart block with biventricular AICD placement. 11.Multiple other medical problems and comorbidities. PLAN: The patient will be placed on some DuoNeb and some Symbicort. She appears clinically very stable. She apparently cannot tolerate corticosteroids. We will not give her any. Additional recommendations and suggestions are forthcoming. I doubt this represents anything like reactivation TB. The patient has had multiple TB tests over the years. 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 All her tests have been negative. No additional recommendations are made. She is not having much in the way of pulmonary complaints other than shortness of breath and a bit of a cough. We will continue to follow. MMODL / IJN: [id number] /
[2019-07-26] MEDS: HYDROcodone/APAP 5-325MG 1 EACH TAB PO PRN (00:48)
[2019-07-26] MEDS: SODIUM CHLORIDE 0.9% 1,000 ML IV SCH (00:56)
[2019-07-26] MEDS: ACETAMINOPHEN TAB 325 MG TAB PO PRN (05:52)
[2019-07-26] MEDS: MAGNESIUM OXIDE 400 MG TAB PO SCH (07:11)
[2019-07-26] MEDS: ASPIRIN 81 MG PO SCH (07:11)
[2019-07-26] MEDS: METOPROLOL SUCCINATE (ER) 50 MG TAB.ER.24H PO SCH (07:11)
[2019-07-26] MEDS: LISINOPRIL 10 MG TAB PO SCH (07:11)
[2019-07-26] MEDS: FAMOTIDINE 20 MG TAB PO SCH (07:11)
[2019-07-26] MEDS: DOXYCYCLINE 100 MG CAP PO SCH (07:11)
[2019-07-26 07:21] VITALS: BP 150/74; RESP 16; TEMP 98.2
[2019-07-26 08:51] LABS: Anisocytosis Slight; HCT 24.9 % (34.0-46.0); MCHC 32.7 g/dL (31.0-37.0); MCV 97.8 fL (80.0-100.0); Macrocytosis Slight; Mean Platelet Volume 8.4; RBC 2.54 m/uL (3.80-5.40); RDW 17.6 % (11.5-15.5); WBC 1.5 k/uL (3.8-10.6)
[2019-07-26 08:57] LABS: HGB 8.1 gm/dL (11.4-16.0); Platelet Count 92 k/uL (150-450)
[2019-07-26] MEDS: BUDESONIDE 1 MG/2 ML NEBU INHALATION SCH (08:57)
[2019-07-26] MEDS: IPRATROPIUM-ALBUTEROL 3 ML NEB INHALATION SCH ×2 (08:57→12:02)
[2019-07-26] MEDS ORDERED: FILGRASTIM-SNDZ 480 MCG/0.8 ML SYRINGE SQ SCH (09:00)
[2019-07-26] MEDS ORDERED: SPIRONOLACTONE 25 MG TAB PO SCH (09:00)
[2019-07-26 09:27] LABS: Eosinophils # (M) 0.03 k/uL (0-0.7); Lymphocytes # (M) 0.38 k/uL (1.0-4.8); Monocytes # (M) 0.36 k/uL (0-1.0); Neutrophils # (M) 0.74 k/uL (1.3-7.7); Neutrophils % (M) 49 %; Nucleated Red Blood Cells 0 /100 WBC (0-0); Total Cells Counted 100
[2019-07-26 09:28] LABS: Poikilocytosis (M) Present
[2019-07-26] MEDS ORDERED: LEVOFLOXACIN 500 MG TAB PO SCH (11:00)
[2019-07-26 12:13] VITALS: PULSE 88
--- NOTE | 2019-07-26 13:04 | CDI ---
Documentation Clarification Form Date: 07/26/2019 12:48:29 PM From: Dodie Lucas Admit Date: 07/25/2019 12:57:00 AM Patient Name: Radha Marin Visit Number: [id number] Discharge Date: ATTENTION: The Clinical Documentation Specialists (CDI) and [facility] Coding Staff appreciate your assistance in clarifying documentation. Please respond to the clarification below the line at the bottom and electronically sign. The CDI & [facility] Coding staff will review the response and follow-up if needed. Please note: Queries are made part of the Legal Health Record. If you have any questions, please contact the author of this message via ITS. Dr. Andrea Hackett Heart failure is documented in the H&P 07/24 under past medical history. History/Risk Factors: 69-year-old female presents to the ED with shortness of breath. Medical history extensive small cell lung cancer, complete heart block with pacemaker, recent chemotherapy. Clinical Indicators: 07/24 Consult Pulmonology Nonischemic cardiomyopathy with ejection fraction of 20% 07/23 VS/Pulse OX: 156/66, 73, 97.8, 18, 99% ra 07/23 BNP: 279 07/23 Chest X Ray: right paratracheal density appears less than previous CXR. Treatment: 07/24 Lisinopril 10mg po Daily, Toprol Xl 50mg po Daily. 07/25 Aldactone 12.5 mg po Daily In your professional opinion, can you please clarify the acuity and type of Heart Failure if known? Chronic Systolic Heart Failure: Unable to Determine Other, please specify (Last Revision: May 2017) Chronic systolic heart failure-EF 20% MTDD
--- NOTE | 2019-07-26 13:43 | P.PN ---
Subjective Progress Note Date: 07/26/19 Principal diagnosis: Shortness of breath, related to mild obstructive pulmonary disease exacerbation 07/26/2019 patient seen in follow-up on the medical floor. She is feeling be tter, breathing easier, she is on IV hydration with normal saline at a rate of 75 mg per hour, she denies any worsening dyspnea, she is on 2 L of oxygen a pulse ox of 100%, she's had no fever or chills. His labs have been reviewed, white count is improving, up to 1.5, hemoglobin is 8.1, platelet count is 92, CODE STATUS was negative. Acid-fast bacilli culture is pending, blood culture is negative, we doubt reactivation of TB in this patient. Precautions can be stopped. Stop the doxycycline, and Levaquin will be ordered for antibiotic coverage, patient is clinically improving, she possibly be discharged home today Objective - Vital Signs Vital signs: Vital Signs Temp 98.2 F 07/26/19 07:20 Pulse 88 07/26/19 12:12 Resp 16 07/26/19 07:20 BP 150/74 07/26/19 07:20 Pulse Ox 100 07/26/19 07:20 Intake & Output 07/25/19 07/26/19 07/26/19 18:59 06:59 18:59 Other: # Voids 2 1 - Exam GENERAL EXAM: Alert, pleasant, 69-year-old white female, 2 L of oxygen pulse ox 100% comfortable in no apparent distress. HEAD: Normocephalic/atraumatic. EYES: Normal reaction of pupils, equal size. Conjunctiva pink, sclera white. NOSE: Clear with pink turbinates. THROAT: No erythema or exudates. NECK: No masses, no JVD, no thyroid enlargement, no adenopathy. CHEST: No chest wall deformity. Symmetrical expansion. LUNGS: Equal air entry with no crackles, wheeze, rhonchi or dullness. CVS: Regular rate and rhythm, normal S1 and S2, no gallops, no murmurs, no rubs ABDOMEN: Soft, nontender. No hepatosplenomegaly, normal bowel sounds, no guarding or rigidity. EXTREMITIES: No clubbing, no edema, no cyanosis, 2+ pulses and upper and lower extremities. MUSCULOSKELETAL: Muscle strength and tone normal. SPINE: No scoliosis or deformity SKIN: No rashes CENTRAL NERVOUS SYSTEM: Alert and oriented -3. No focal deficits, tone is normal in all 4 extremities. PSYCHIATRIC: Alert and oriented -3. Appropriate affect. Intact judgment and insight. - Labs CBC & Chem 7: 07/26/19 06:37 07/24/19 20:00 Labs: Abnormal Lab Results - Last 24 Hours (Table) 07/26/19 Range/Units 06:37 WBC 1.5 L (3.8-10.6) k/uL RBC 2.54 L (3.80-5.40) m/uL Hgb 8.1 L D (11.4-16.0) gm/dL Hct 24.9 L (34.0-46.0) % RDW 17.6 H (11.5-15.5) % Plt Count 92 L D (150-450) k/uL Neutrophils # (Manual) 0.74 L (1.3-7.7) k/uL Lymphocytes # (Manual) 0.38 L (1.0-4.8) k/uL Microbiology - Last 24 Hours (Table) 07/24/19 20:59 Blood Culture - Preliminary Blood No Growth after 24 hours 07/25/19 03:07 Acid Fast Bacilli Culture - Preliminary Blood Assessment and Plan Plan: Assessment: #1. Shortness of breath related to mild exacerbation of COPD, without evidence of pulmonary embolism, doubt possibility of TB reactivation #2. History of a relatively recent diagnosis small cell lung cancer and SVC syndrome, status post transbronchial needle aspiration of a right paratracheal mass, with pathology consistent with small cell lung cancer status post 29 radiation treatments, and 4 cycles of chemotherapy #3. Bicytopenia #4. Polycythemia #5. History of heart failure with systolic dysfunction #6. Hypertension #7. Degenerative joint disease #8. History of syncope #9. Nonischemic cardiomyopathy with EF of 20% #10. Status post complete heart block with biventricular AICD placement #11. Multiple other medical problems and comorbidities Plan: Clinically patient is improving, she has had no fever or chills, he has been treated with empiric antibiotic, we will switch her antibiotics to Levaquin, continue with breathing treatments, she's had no acute events overnight, no he moptysis. Breathing easier, she is possibly be considered for discharge home today with outpatient follow-up with Dr. Phelan in the office. I performed a history & physical examination of the patient and discussed their management with my nurse practitioner, Trish Hanna. I reviewed the nurse practitioner's note and agree with the documented findings and plan of care. Lung sounds are positive for diminished breath sounds. The findings and the impression was discussed with the patient. I attest to the documentation by the nurse practitioner. Time with Patient: Less than 30
--- NOTE | 2019-07-26 14:44 | P.CONS ---
History of Present Illness - Reason for Consult Consult date: 07/26/19 small cell lung cancer Requesting physician: Andrea Hackett - Chief Complaint Cough, shortness of breath - History of Present Illness Mrs. Marin is a very pleasant 69-year-old female patient of Dr. Pugh and Dr. Rubi Rad Onc. she was seen initially in consult March 2019, when she was found to have a right upper lobe mass. Patient presented with 2 weeks of progressive orthopnea, symptoms worse laying on her left side, right upper extremity pain and swelling, she noticed veins in her chest protruding more/more visible, also noted facial congestion. CT chest showed mediastinal mass, right paratracheal region, measuring about 9.6 x 8.4 x 7 cm, internal calcifications, perihilar fluid attenuation, mass effect on the trachea without obstruction, mass effect in the superior vena cava. Patient denied any weight loss, nausea, vomiting, hemoptysis, acute changes in her breathing, abdominal pain or cramping, acute changes in bowel or bladder habits. Patient has history of a pacemaker. She was a smoker, quitting 7 years ago. she had a [place] needle biopsy with Dr. Phelan, 03/27/19 positive for SCLC, extensive stage, CT brain negative for metastases. She was treated with a combination of chemo/radiation early on in treatment for SVC syndrome. She completed chemo treatment 07/15/19. patient came to the emergency department with complaints of chest tightness, she attributed it to similar symptoms that she's had in the past when she deals with bronchitis. She has been treated with antibiotics and oxygen. Today patient states feeling significantly better than on admission, she denies any recent fevers, oral irritation, she does have odynophagia with difficulty swallowing pills secondary to pain. Possibly a degree of radiation esophagitis vs esophagitis from chemo and low WBC. She denies vomiting, breathing is stable, no hemoptysis recently, abdominal pain, acute changes in bowel or bladder habits. Review of Systems 14 point review of systems is negative except as stated in HPI Past Medical History Past Medical History: Cancer, Heart Failure, Hypertension, Osteoarthritis (OA), Pneumonia, Syncope Additional Past Medical History / Comment(s): P malignant HTN with pulmonary vascular congestion/R upper lung mass to be followed up upon. 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 History of Any Multi-Drug Resistant Organisms: None Reported Past Surgical History: Pacemaker Additional Past Surgical History / Comment(s): 2013 BiV AICD/generator change 2013 cardiac cath Past Anesthesia/Blood Transfusion Reactions: Unable to Obtain Additional Past Anesthesia/Blood Transfusion Reaction / Comm: Pt hsa never had general or spinal anesthesia. Type of Cardiac Device: Biventricular Pacemaker, AICD Device Placement Date:: 2013 Past Psychological History: No Psychological Hx Reported Additional Psychological History / Comment(s): Pt resides alone. She is independent. Smoking Status: Former smoker Past Alcohol Use History: None Reported Additional Past Alcohol Use History / Comment(s): Pt started smoking in 1964 and quit in 2012. Past Drug Use History: None Reported - Past Family History Brother(s) Family Medical History: Cancer Additional Family Medical History / Comment(s): pancreatic cancer Father Family Medical History: CVA/TIA, Hypertension Additional Family Medical History / Comment(s): third degree block, stroke Mother Family Medical History: Hypertension Medications and Allergies Home Medications Medication Instructions Recorded Confirmed Type Aspirin 81 mg PO DAILY 07/27/13 07/24/19 History Spironolactone [Aldactone] 12.5 mg PO DAILY 07/27/13 07/24/19 History Lisinopril [Zestril] 10 mg PO DAILY 03/19/19 07/24/19 History Magnesium Chloride [Mag64] 64 mg PO DAILY 03/19/19 07/24/19 History Metoprolol Succinate (ER) [Toprol 50 mg PO DAILY 03/19/19 07/24/19 History XL] ALPRAZolam [Xanax] 0.25 mg PO Q8H PRN 03/26/19 07/24/19 History Acetaminophen [Tylenol Arthritis] 650 mg PO BID PRN 04/13/19 07/24/19 History Famotidine [Pepcid] 20 mg PO BID 05/11/19 07/24/19 History Carboxymethylcellulose Sodium 1 drop BOTH EYES DAILY PRN 06/16/19 07/24/19 History [Refresh Tears] Hydrocodone/Acetaminophen [[place] 1 tab PO Q6H PRN 06/16/19 07/24/19 History 5-325] Ondansetron [Zofran] 4 mg PO Q4H PRN 06/16/19 07/24/19 History Pantoprazole [Protonix] 40 mg PO AC-BID #60 tablet. 06/19/19 07/24/19 Rx Albuterol Nebulized [Ventolin 2.5 mg INHALATION RT-TID PRN 07/24/19 07/24/19 History Nebulized] Cholecalciferol [Vitamin D3 (25 5,000 unit PO DAILY 07/24/19 07/24/19 History Mcg = 1000 Iu)] Ipratropium-Albuterol Nebulize 3 ml INHALATION TID #90 ml 07/26/19 Rx [Duoneb 0.5 mg-3 mg/3 ml Soln] Levofloxacin [Levaquin] 500 mg PO Q24H #5 tab 07/26/19 Rx Allergies Allergy/AdvReac Type Severity Reaction Status Date / Time losartan [Losartan] Allergy Severe Rash/Hives Verified 07/25/19 10:17 Penicillins Allergy Severe Rash/Hives Verified 07/25/19 10:17 cortisone [Cortisone] AdvReac Severe flushed Verified 07/25/19 10:17 skin, depression Tetanus Vaccines and Toxoid AdvReac Severe huge Verified 07/25/19 10:17 [Tetanus Vaccines & Toxoid] localized swelling Physical Exam Vitals: Vital Signs Temp Pulse Pulse Resp BP Pulse Ox 07/26/19 12:12 88 07/26/19 12:02 80 07/26/19 09:10 82 07/26/19 08:58 80 07/26/19 07:20 98.2 F 76 16 150/74 100 07/26/19 03:59 98.4 F 73 18 157/61 97 07/25/19 21:12 85 07/25/19 21:00 85 07/25/19 19:32 97.7 F 84 18 184/67 100 07/25/19 16:38 86 07/25/19 16:25 88 07/25/19 14:48 97.7 F 88 16 150/67 93 L Intake and Output 07/25/19 07/26/19 07/26/19 22:59 06:59 14:59 Other: # Voids 1 1 - Constitutional General appearance: cooperative, no acute distress, obese - EENT Eyes: anicteric sclerae, EOMI ENT: hearing grossly normal, normal oropharynx - Neck Neck: no lymphadenopathy - Respiratory Respiratory: bilateral: rhonchi - Cardiovascular Rhythm: regular Heart sounds: normal: S1, S2 Abnormal Heart Sounds: no systolic murmur, no diastolic murmur, no rub, no S3 Gallop, no S4 Gallop, no click, no other leg Peripheral Edema: bilateral: Trace - Gastrointestinal General gastrointestinal: no absent bowel sounds, no decreased bowel sounds, no distended, no hepatomegaly, no hyperactive bowel sounds, normal bowel sounds, no organomegaly, no rigid, no scaphoid, soft, no splenomegaly, no tenderness, no umbilical hernia, no ventral hernia - Integumentary Integumentary: normal - Neurologic Neurologic: CNII-XII intact - Musculoskeletal Musculoskeletal: strength equal bilaterally - Psychiatric Psychiatric: A&O x's 3, appropriate affect, intact judgment & insight Results CBC & Chem 7: 07/26/19 06:37 07/24/19 20:00 Labs: Abnormal Lab Results - Last 24 Hours (Table) 07/26/19 Range/Units 06:37 WBC 1.5 L (3.8-10.6) k/uL RBC 2.54 L (3.80-5.40) m/uL Hgb 8.1 L D (11.4-16.0) gm/dL Hct 24.9 L (34.0-46.0) % RDW 17.6 H (11.5-15.5) % Plt Count 92 L D (150-450) k/uL Neutrophils # (Manual) 0.74 L (1.3-7.7) k/uL Lymphocytes # (Manual) 0.38 L (1.0-4.8) k/uL Microbiology - Last 24 Hours (Table) 07/25/19 21:15 Gram Stain - Preliminary Sputum 07/24/19 20:59 Blood Culture - Preliminary Blood No Growth after 24 hours Abdominal x-ray: report reviewed CT scan - chest: report reviewed (negative for pulmonary embolism) Assessment and Plan (1) SOB (shortness of breath) Narrative/Plan: She has been treated for respiratory infection with improvement in her symptoms. Status: Acute Priority: High Code(s): R06.02 - SHORTNESS OF BREATH SNOMED Code(s): 524438083 (2) Small cell lung cancer, right upper lobe Narrative/Plan: Patient has just completed treatment for the same last week. She has a follow- up with Dr. Rubi on August 18 at 1330. She has a follow-up with Dr. Pugh 08/05/19 at 1430. Status: Acute Priority: Medium Code(s): C34.11 - MALIGNANT NEOPLASM OF UPPER LOBE, RIGHT BRONCHUS OR LUNG SNOMED Code(s): 777580419 (3) Leukopenia due to antineoplastic chemotherapy Narrative/Plan: WBC 0.6 on admit, rechecked today, 1.5, afebrile. Patient is recovering from chemotherapy. No GCSF is necessary. Status: Acute Priority: Medium Code(s): D70.1 - AGRANULOCYTOSIS SECONDARY TO CANCER CHEMOTHERAPY; T45.1X5A - ADVERSE EFFECT OF ANTINEOPLASTIC AND IMMUNOSUP DRUGS, INIT SNOMED Code(s): 904265838 Plan: Painful swallowing. Multifactorial including radiation as well as low white blood cell count, recent chemotherapy. Encouraged diet as tolerated. Patient states she has the most problem with swelling medications. Recommend either suspensions or crushing his medications as appropriate. 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
--- NOTE | 2019-07-26 14:58 | PN ---
PROGRESS NOTE DATE OF SERVICE: 07/26/2019 REASON FOR FOLLOWUP: 1. COPD, patient with tracheobronchitis. 2. Abnormal CT. INTERVAL HISTORY: The patient is currently afebrile. The patient is feeling much better. She is breathing comfortably. She did have a cough with occasional sputum. No nausea, vomiting, abdominal pain, no diarrhea. She is feeling better, wants to go home. PHYSICAL EXAMINATION: Blood pressure 150/74 with a pulse of 76, temperature 98.2 she is 100% on 2 L nasal cannula. General description is an elderly female, up in the bed in no distress. RESPIRATORY SYSTEM: Unlabored breathing, decreased breasth sounds, no wheeze. HEART: S1, S2. Regular rate and rhythm. ABDOMEN: Soft, no tenderness. LABS: Hemoglobin 8.1 with a white count of 1.5. DIAGNOSTIC IMPRESSION AND PLAN: 1. Patient admitted to the hospital with shortness of breath, more likely COPD, patient with tracheobronchitis, clinically not behaving as pneumonia. Levaquin to continue along with bronchodilator. 2. Abnormal doubt tuberculosis. No need for any specific workup for the same. Continue supportive care. Discussed with attending physician working on discharge. MMODL / IJN: [id number] /
--- NOTE | 2019-07-26 20:27 | P.DS ---
Providers Date of admission: 07/25/19 00:57 Expected date of discharge: 07/26/19 Attending physician: Andrea Hackett Consults: 07/25/19 00:05 Consult Physician Routine Consulting Provider: Joel Hunter Consult Reason/Comments: Concern TB reactivation Do you want consulting provider notified?: Yes, Notify in am 07/25/19 00:06 Consult Physician Routine Consulting Provider: Chan Olivia Consult Reason/Comments: Lung cancer pt, CT read as concern for TB reactivation Do you want consulting provider notified?: Yes, Notify in am 07/25/19 11:22 Consult Physician Routine Consulting Provider: Wesly Pugh Consult Reason/Comments: lung ca Do you want consulting provider notified?: Yes Primary care physician: Arian Forrest [facility] Course: Chief Complaint: Chest tightness History of presenting complaint: This is a pleasant 69-year-old patient of Dr. forrest. Chronic stable medical conditions include hypertension, osteoarthritis, varicose veins, and pacemaker for complete heart block.. Patient diagnosed with extensive stage small cell lung cancer. Did finish her course of chemotherapy she says she believes her fifth cycle of weeks ago. Also completed 29 days of radiation treatment. Patient appetite has been fair. Patient also is good radiation esophagitis and is some pain in swallowing food when it gets down to the mid chest level. Recently the hospital with colitis finished chemotherapy. Patient now presents with feeling of chest tightness. No fever no chills. Slight cough with brownish green sputum. Admitted for the same. Feeling a bit better this morning. Admitted with COPD exacerbation. And acute bronchitis. Responded well to bronchodilator steroids. Today discuss with Dr. Phelan and also Dr. Hunter from ID. There is no clinical suspicion for TB. Not to be pursued further. Patient doing rather well. Discussed with her. Discussion and discharge planning more than 35 minutes Consultation: Dr. Phelan from pulmonary Dr. hunter from ID Dr. Pugh from oncology Physical examination: VITAL SIGNS: 98.2, 76, 16, 100 5190, 100% on 2 L GENERAL: BMI 34.8, sitting up into bed, comfortable EYES: Pupils equal. Conjunctiva pale HEENT: External appearance of nose and ears normal, oral cavity grossly normal patient NECK: Prominent neck veins; masses not palpable. HEART: First and second heart sounds are normal; mild edema. LUNGS: Respiratory rate normal, improved air entry ABDOMEN: Soft, nontender, liver spleen not palpable, no masses palpable. PSYCH: Alert and oriented x3; mood and affect normal. MUSCULOSKELETAL: Evidence of OA especially in the hands INVESTIGATIONS, reviewed in the clinical context: White count 1.5 hemoglobin 8.1 platelets 92 Previous testing White count 0.6 hemoglobin 18.2 platelets 52 potassium 4.3 creatinine 0.91 d- dimer 10.97 Troponin I is less than 0.012 proBNP to 79 EKG tracing personally reviewed by me-shows atrial sensed ventricular paced rhythm Chest x-ray film personally reviewed by me-maybe some chronic changes Assessment: -Acute COPD exacerbation and an ex-smoker, with acute bronchitis -Extensive stage small cell lung cancer status post 5 cycles of chemotherapy finished last week and 29 cycles of radiation treatment -Essential hypertension -Pacemaker for complete heart block -Primary osteoarthritis -Bilateral lower extremity varicose veins -Obesity BMI 34.8 -Radiation esophagitis with odynophagia -Bicytopenia from chemotherapy -No clinical suspicion for TB not to be worked up further. Disposition: Home Patient Condition at Discharge: Stable Plan - Discharge Summary Discharge Rx Participant: Yes New Discharge Prescriptions: New Ipratropium-Albuterol Nebulize [Duoneb 0.5 mg-3 mg/3 ml Soln] 3 ml INHALATION TID #90 ml Levofloxacin [Levaquin] 500 mg PO Q24H #5 tab Continue Spironolactone [Aldactone] 12.5 mg PO DAILY Aspirin 81 mg PO DAILY Metoprolol Succinate (ER) [Toprol XL] 50 mg PO DAILY Magnesium Chloride [Mag64] 64 mg PO DAILY Lisinopril [Zestril] 10 mg PO DAILY ALPRAZolam [Xanax] 0.25 mg PO Q8H PRN PRN Reason: Anxiety Acetaminophen [Tylenol Arthritis] 650 mg PO BID PRN PRN Reason: Pain Famotidine [Pepcid] 20 mg PO BID Carboxymethylcellulose Sodium [Refresh Tears] 1 drop BOTH EYES DAILY PRN PRN Reason: DRY EYES Hydrocodone/Acetaminophen [[place] 5-325] 1 tab PO Q6H PRN PRN Reason: Pain Ondansetron [Zofran] 4 mg PO Q4H PRN PRN Reason: Nausea Pantoprazole [Protonix] 40 mg PO AC-BID #60 tablet. Cholecalciferol [Vitamin D3 (25 Mcg = 1000 Iu)] 5,000 unit PO DAILY Albuterol Nebulized [Ventolin Nebulized] 2.5 mg INHALATION RT-TID PRN PRN Reason: Shortness Of Breath Discontinued Sucralfate [Carafate] 1 gm PO QID Discharge Medication List Aspirin 81 mg PO DAILY 07/27/13 [History] Spironolactone [Aldactone] 12.5 mg PO DAILY 07/27/13 [History] Lisinopril [Zestril] 10 mg PO DAILY 03/19/19 [History] Magnesium Chloride [Mag64] 64 mg PO DAILY 03/19/19 [History] Metoprolol Succinate (ER) [Toprol XL] 50 mg PO DAILY 03/19/19 [History] ALPRAZolam [Xanax] 0.25 mg PO Q8H PRN 03/26/19 [History] Acetaminophen [Tylenol Arthritis] 650 mg PO BID PRN 04/13/19 [History] Famotidine [Pepcid] 20 mg PO BID 05/11/19 [History] Carboxymethylcellulose Sodium [Refresh Tears] 1 drop BOTH EYES DAILY PRN 06/16/19 [History] Hydrocodone/Acetaminophen [[place] 5-325] 1 tab PO Q6H PRN 06/16/19 [History] Ondansetron [Zofran] 4 mg PO Q4H PRN 06/16/19 [History] Pantoprazole [Protonix] 40 mg PO AC-BID #60 tablet. 06/19/19 [Rx] Albuterol Nebulized [Ventolin Nebulized] 2.5 mg INHALATION RT-TID PRN 07/24/19 [History] Cholecalciferol [Vitamin D3 (25 Mcg = 1000 Iu)] 5,000 unit PO DAILY 07/24/19 [History] Ipratropium-Albuterol Nebulize [Duoneb 0.5 mg-3 mg/3 ml Soln] 3 ml INHALATION TID #90 ml 07/26/19 [Rx] Levofloxacin [Levaquin] 500 mg PO Q24H #5 tab 07/26/19 [Rx] Follow up Appointment(s)/Referral(s): oncologist, [Other] - 1 Week Arian Forrest MD [Primary Care Provider] - 1-2 days (office not answering Please call to make appointment) Activity/Diet/Wound Care/Special Instructions: cbc/bmp - 7 days Discharge Disposition: HOME SELF-CARE
== END 2019-07-26 14:05 | disposition home or self-care (01) | DRG 191 ==
LOC: EC 19:13 → 4SSUR 07-25 00:57
PROVIDERS: ADMIT Hospitalist; ATTEND Hospitalist
DX: J44.1 Chronic obstructive pulmonary disease with (acute) exacerbation (principal); B37.0 Candidal stomatitis; C34.11 Malignant neoplasm of upper lobe, right bronchus or lung; I42.8 Other cardiomyopathies; I44.2 Atrioventricular block, complete; I50.22 Chronic systolic (congestive) heart failure; I87.1 Compression of vein; J44.0 Chronic obstructive pulmonary disease with (acute) lower respiratory infection; J20.9 Acute bronchitis, unspecified; D70.1 Agranulocytosis secondary to cancer chemotherapy; D69.59 Other secondary thrombocytopenia; T45.1X5A Adverse effect of antineoplastic and immunosuppressive drugs, initial encounter; D75.1 Secondary polycythemia; E66.9 Obesity, unspecified; I11.0 Hypertensive heart disease with heart failure; I83.93 Asymptomatic varicose veins of bilateral lower extremities; K20.8 Other esophagitis; M19.042 Primary osteoarthritis, left hand; M19.041 Primary osteoarthritis, right hand; M17.0 Bilateral primary osteoarthritis of knee; M19.079 Primary osteoarthritis, unspecified ankle and foot; M47.9 Spondylosis, unspecified; Z20.828 Contact with and (suspected) exposure to other viral communicable diseases; Z60.2 Problems related to living alone; R13.10 Dysphagia, unspecified; Y84.2 Radiological procedure and radiotherapy as the cause of abnormal reaction of the patient, or of later complication, without mention of misadventure at the time of the procedure; Z68.34 Body mass index [BMI] 34.0-34.9, adult; Z79.82 Long term (current) use of aspirin; Z79.899 Other long term (current) drug therapy; Z80.0 Family history of malignant neoplasm of digestive organs; Z82.3 Family history of stroke; Z82.49 Family history of ischemic heart disease and other diseases of the circulatory system; Z87.891 Personal history of nicotine dependence; Z92.3 Personal history of irradiation; Z95.810 Presence of automatic (implantable) cardiac defibrillator; Z92.21 Personal history of antineoplastic chemotherapy
CPT/HCPCS: 36415; 71046; 71275; 80053; 83605; 83880; 84484; 85025; 85379; 85610; 85730; 86480; 87040; 87070; 87205; 93005; 94640; 96365; 99285

== ENCOUNTER → 2019-08-02 | Outpatient (CLI) | payer MEDICARE, BC ==
--- NOTE | 2019-08-02 14:00 | CT ---
EXAMINATION TYPE: CT ChestAbdPelvis w con DATE OF EXAM: 08/02/2019 COMPARISON: Prior CT dated 06/16/2019, 07/24/2019 HISTORY: Follow up lung cancer. CT DLP: 2152.4 mGycm Automated exposure control for dose reduction was used. CONTRAST: CT scan of the chest, abdomen and pelvis is performed with Oral Contrast and with IV Contrast, patien t injected with 100 mL of Isovue 300. FINDINGS: There is a port in the right pectoral region coursing via right internal jugular vein appro ach into the superior vena cava. Generators present in the left pectoral region, there are leads cour sing into the heart. Coronary artery calcifications are present. There may be mitral annular calcific ation. LUNGS: The lungs are essentially stable. Apical scarring is again noted, there is a [place] present in the right upper lobe nodularity again seen, groundglass nodule in the superior segmen t of the right lower lobe is somewhat more conspicuous, cystic space is now present at this level. Th ere is no pleural effusion or pneumothorax seen. The tracheobronchial tree is patent. MEDIASTINUM: There is not a significant change in the appearance of the calcified retrocaval pretrach eal mass measuring approximately 5.4 x 4.6 x 6.8 cm. AORTA: Stable. OTHER: No additional significant abnormality is seen. LIVER/GB: No significant interval change is appreciated. PANCREAS: No significant abnormality is seen. SPLEEN: No significant abnormality is seen. ADRENALS: No significant interval change is seen, low-attenuation associated with the left adrenal gl and. KIDNEYS: No significant abnormality is seen. REPRODUCTIVE ORGANS: Bulky uterus with calcifications suggests underlying fibroids. BOWEL: No significant abnormality is seen. FREE AIR: No Free Air visible. ASCITES: None seen. RETROPERITONEAL ADENOPATHY: No retroperitoneal adenopathy is seen. LYMPH NODES: No greater than 1 cm abdominal or pelvic lymph nodes are appreciated. URINARY BLADDER: No significant abnormality is seen. PELVIC ADENOPATHY: None visualized. OSSEOUS STRUCTURES: Stable. IMPRESSION: No significant interval change is evident
== END | disposition home or self-care (01) ==
LOC: RADPROMAIN 10:38
PROVIDERS: ATTEND Internal Medicine Hematology & Oncology
DX: C34.91 Malignant neoplasm of unspecified part of right bronchus or lung (principal); Z88.1 Allergy status to other antibiotic agents; Z88.8 Allergy status to other drugs, medicaments and biological substances
CPT/HCPCS: 82565; 84520; 71260; 74177; 36415; Q9967

== ENCOUNTER → 2019-09-20 | Outpatient (CLI) | payer MEDICARE, BC ==
[2019-09-20 15:37] LABS: African American GFR (CKD) >90 (>60 ml/min/1.73 sqM); Blood Urea Nitrogen 19 mg/dL (7-17); Non-African American GFR(CKD) 80 (>60 ml/min/1.73 sqM)
--- NOTE | 2019-09-20 16:22 | CT ---
EXAMINATION TYPE: CT brain wo/w con DATE OF EXAM: 09/20/2019 COMPARISON: March 29, 2019 HISTORY: Observe for mets, history of lung cancer. CT DLP: 2205.7mGycm CONTRAST: CT scan of the head is performed without and with IV Contrast, patient injected with 100ml mL of Isov ue 300. Unenhanced followed by contrast enhanced CT of the brain is submitted for evaluation. The ventricles are midline. Moderate ventricular enlargement noted. Periventricular white matter ischemic demyelin ation. There is no evidence for intracranial hemorrhage or extra-axial collection. No mass effects a re identified. Visualized bony calvarium is intact. Contrast is administered and no enhancing lesio ns are detected. No pathologic enhancement is identified. If symptoms persist consider MRI. IMPRESSION: No evidence for enhancing lesion.
== END | disposition home or self-care (01) ==
LOC: RADPROMAIN 14:49
PROVIDERS: ATTEND Radiology Radiation Oncology
DX: C34.11 Malignant neoplasm of upper lobe, right bronchus or lung (principal); Z92.3 Personal history of irradiation; Z87.891 Personal history of nicotine dependence
CPT/HCPCS: 82565; 84520; 70470; 36415; J1642; Q9967

== ENCOUNTER → 2019-10-28 | Outpatient (CLI) | payer MEDICARE, BC ==
--- NOTE | 2019-10-28 15:47 | CT ---
EXAMINATION TYPE: CT ChestAbdPelvis w con DATE OF EXAM: 10/28/2019 COMPARISON: 08/02/2019 HISTORY: Follow up for lung cancer. CT DLP: 2259.8 mGycm CONTRAST: CT scan of the chest, abdomen and pelvis is performed with Oral Contrast and with IV Contrast, patien t injected with 100ml mL of Isovue 300. CT Chest: LUNGS: New nodular density right suprahilar region measuring 2.4 cm. There is a new infiltrate within the right upper lobe with air bronchograms seen. This may reflect pneumonia or aspiration pneumonia. Recurrent neoplasm not excluded. The remainder of the lungs are clear. Mild right-sided volume loss. MEDIASTINUM: Thoracic aorta is of normal caliber. The heart is not enlarged. Stable large calcified retrocaval lymph node measuring 5.2 cm. HILAR STRUCTURES: No evidence for mass. No hilar adenopathy is appreciated. OTHER: No significant abnormality. CONTRAST CT ABDOMEN AND PELVIS FINDINGS: LIVER/GB: No calcified gallstones. No space occupying hepatic lesion. Biliary tree is of normal ca liber. PANCREAS: No inflammation. No distinct mass. SPLEEN: No splenic enlargement. No lesion seen. ADRENALS: Left adrenal nodule is stable at 1.8 cm. No right adrenal nodule seen. No thickening. KIDNEYS/BLADDER: No hydronephrosis. No nephrolithiasis. No disctinct renal mass. BOWEL: Normal appendix. Normal bowel caliber. No inflammation. GENITAL ORGANS: No gross abnormality. LYMPH NODES: No greater than 1cm abdominal or pelvic lymph nodes are appreciated. AORTA: No significant abnormality. OSSEOUS STRUCTURES: No significant abnormality is seen. OTHER: No significant additional abnormality is seen. IMPRESSION: 1. New nodular density right suprahilar region measuring 2.4 cm. There is a new infiltrate within the right upper lobe with air bronchograms seen. This may reflect pneumonia or aspiration pneumonia. Rec urrent neoplasm not excluded.
== END | disposition home or self-care (01) ==
LOC: RADPROMAIN 13:28
PROVIDERS: ATTEND Internal Medicine Hematology & Oncology
DX: R91.8 Other nonspecific abnormal finding of lung field (principal); C34.91 Malignant neoplasm of unspecified part of right bronchus or lung; Z88.8 Allergy status to other drugs, medicaments and biological substances; Z88.1 Allergy status to other antibiotic agents
CPT/HCPCS: 82565; 84520; 71260; 74177; 36415; J1642; Q9967

== ENCOUNTER → 2019-12-23 | Outpatient (CLI) | payer MEDICARE, BC ==
--- NOTE | 2019-12-23 15:50 | CT ---
EXAMINATION TYPE: CT brain wo/w con DATE OF EXAM: 12/23/2019 COMPARISON: 09/20/2019 HISTORY: 69-year-old female Malignant neoplasm right upper lobe lung, possible METS TECHNIQUE: Examination was done in axial plane before and after administration of 100 mL Isovue 300 IV contrast. Coronal and sagittal reconstructions performed. CT DLP: 2897.70 mGycm Automated exposure control for dose reduction was used. FINDINGS: There is no evidence of acute intracranial hemorrhage, acute ischemic changes, mass, mass-effect, or extra-axial fluid collection. There is no effacement of cerebral sulci or basal subarachnoid cister ns. There is no midline shift. Wade-white matter distinction is preserved. Mild to moderate ventriculomegaly is unchanged. Confluent white matter hypodensities in both cerebral hemispheres. Other scattered calcifications within the carotid siphons. Persistent origin righ t posterior cerebral artery. Dural venous sinuses are patent. No enhancing intracranial lesions are seen Mild leftward nasal septal deviation. Paranasal sinuses and mastoid air cells are well pneumatized. O rbits and globes are intact. IMPRESSION: 1. No enhancing lesions to suggest intracranial metastases by CT. 2. Similar mild to moderate hydrocephalus probably in part due to central cerebral atrophy. Correlate to exclude a component of NPH. Confluent changes of chronic small vessel ischemic disease are also u nchanged.
--- NOTE | 2019-12-23 16:06 | CT ---
EXAMINATION TYPE: CT ChestAbdPelvis w con DATE OF EXAM: 12/23/2019 COMPARISON: 10/28/2019, 08/02/2019, 06/02/2019 HISTORY: 69-year-old female C34.11, right upper lobe lung cancer. Malignant neoplasm right upper lobe lung, possible METS TECHNIQUE: Contiguous axial scanning of the chest, abdomen, and pelvis performed with IV Contrast, pa tient injected with 100 mL of Isovue 300. Delayed images through the kidneys were obtained. Coronal/s agittal reconstructions performed. CT DLP: 2506.90 mGycm Automated exposure control for dose reduction was used. FINDINGS: CHEST: Left anterior chest wall ICD generator with right atrial, right ventricular, and coronary sinus leads . Heart normal size without pericardial effusion. Scattered three-vessel coronary artery calcifications are present. Mildly ectatic proximal arch at 3.7 cm. Mild/moderate atherosclerotic arch calcifications. Convention al arch vessel branching anatomy. Redemonstrated heterogeneous partially calcified mass along the right paratracheal region. This measu res 5.1 x 3.8 cm versus 5.5 x 4.1 cm, previously, stable to slightly smaller. Extensive right upper lobe consolidation just adjacent extending to the right hilum and superior segm ent right lower lobe shows progressive volume loss and consolidative change. No new pulmonary nodules elsewhere in the lungs. A trace right pleural effusion is new. ABDOMEN: Subcentimeter hypodensity right hepatic dome is unchanged, likely cyst. Portal venous system is paten t. No biliary ductal dilatation. Gallbladder, right adrenal gland, kidneys, spleen, and pancreas appear within normal limits. Low-density nodule of the left adrenal gland stable at 1.7 cm, suspect a lipid rich adrenal adenoma. No dilated small bowel, free fluid, or free air. No mesenteric or retroperitoneal lymphadenopathy. Mild stool burden. Oral contrast progressed to the distal transverse colon. No pericolic inflammatory change. Moderate atherosclerotic calcifications within the abdominal aorta, severe within the right common il iac artery with stenosis. Additional severe stenosis proximal left common iliac artery. PELVIS: Bladder partially distended. Uterus anteverted. Possible 2.2 cm fundal fibroid. Small bilateral ovari es. No abnormal fluid collection in the pelvis or pelvic lymphadenopathy. BONES: Mild degenerative change of the hips. Hypertrophic facet arthropathy lower lumbar spine. Grade 1 ante rolisthesis L4-L5. No osseous destructive process seen. IMPRESSION: 1. REDEMONSTRATED PARTLY CALCIFIED RIGHT PARATRACHEAL MASS, STABLE TO SLIGHTLY SMALLER (5.1 X 3.8 CM VERSUS 5.5 X 4.1 CM, PREVIOUSLY). 2. DISTORTION AND CONSOLIDATION WITHIN THE RIGHT UPPER LOBE ADJACENT TO THE MASS SHOWS PROGRESSIVE VO LUME LOSS. CHANGES CONTINUE TO EXTEND INTO THE SUPERIOR SEGMENT RIGHT LOWER LOBE. CORRELATE TO THE RADIATION PORT. SUSPECT POSTTREATMENT CHANGE/RADIATION PNEUMONITIS OR FIBROSIS. 3. NEW TRACE RIGHT PLEURAL EFFUSION. 4. 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 5. 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
== END | disposition home or self-care (01) ==
LOC: RADPROMAIN 12:26
PROVIDERS: ATTEND Radiology Radiation Oncology
DX: J90 Pleural effusion, not elsewhere classified (principal); I77.1 Stricture of artery; R93.89 Abnormal findings on diagnostic imaging of other specified body structures; G91.8 Other hydrocephalus; C34.11 Malignant neoplasm of upper lobe, right bronchus or lung; Z92.3 Personal history of irradiation; Z88.1 Allergy status to other antibiotic agents; Z88.8 Allergy status to other drugs, medicaments and biological substances
CPT/HCPCS: 82565; 84520; 70470; 71260; 74177; Q9967

== ENCOUNTER → 2019-12-23 | Outpatient (CLI) | payer MEDICARE, BC ==
[~2019-12-23] MED LIST changes: +ALBUTEROL NEBULIZED 2.5 MG/3 ML INHALATION ONE; -LACTATED RINGERS 1,000 ML IV SCH; -LIDOCAINE 1% (10MG/ML) FOR IV START INTRADERMA PRN; -MORPHINE SULFATE 2 MG/ML SYRINGE IV PRN; -ONDANSETRON 4 MG/2 ML VIAL IVP ONE; -ONDANSETRON 4 MG/2 ML VIAL IVP PRN; -Pre Op ABX Message 1 EACH MISC MISCELLANE ONE
== END | disposition home or self-care (01) ==
LOC: RADPROMAIN 12:28
PROVIDERS: ATTEND Internal Medicine Hematology & Oncology
DX: Z53.9 Procedure and treatment not carried out, unspecified reason (principal)

== ENCOUNTER 2020-01-07 18:21 | Inpatient (IN) | payer MEDICARE, BC ==
--- NOTE | 2020-01-07 19:52 | ED ---
Skin/Abscess/FB HPI - General Chief complaint: Skin/Abscess/Foreign Body Stated complaint: Infected Port Time Seen by Provider: 01/07/20 19:01 Source: patient Mode of arrival: wheelchair Limitations: no limitations - History of Present Illness Initial comments: 69-year-old female patient presented to the emergency department today for evaluation of infection to her Mediport. Patient states that she had overlying erythema and drainage of pus to the implantation area of the mediport. She states that she was started on and completed a 10 day course of levaquin, but symptoms are persisting today. States the are is still red. Denies any current drainage. States that she is having generalized weakness and fatigue. She states she feels quite unwell. She also reports cough, but states it is chronic from receiving radiation. Patient had the port placed in May 2019 for treatment of Lung cancer. States that she has completed both chemo and radiation. She denies any current fever, but states she has been chilled. Reports nausea without vomiting. Patient denies any recent rash, shortness of breath, chest pain, abdominal pain, diarrhea, constipation, back pain, numbness, tingling, hematuria, dysuria, urinary urgency, urinary frequency, headache, visual changes, or any other complaints. - Related Data Home Medications Medication Instructions Recorded Confirmed Aspirin 81 mg PO DAILY 07/27/13 01/07/20 Spironolactone [Aldactone] 12.5 mg PO DAILY 07/27/13 01/07/20 Magnesium Chloride [Mag64] 64 mg PO DAILY 03/19/19 01/07/20 Metoprolol Succinate (ER) [Toprol 50 mg PO DAILY 03/19/19 01/07/20 XL] lisinopriL [Zestril] 10 mg PO DAILY 03/19/19 01/07/20 Albuterol Nebulized [Ventolin 2.5 mg INHALATION RT-TID PRN 07/24/19 01/07/20 Nebulized] Cholecalciferol [Vitamin D3 (25 2,000 unit PO DAILY 07/24/19 01/07/20 Mcg = 1000 Iu)] Brimonidine Tartrate/Timolol 1 drop LEFT EYE BID 01/07/20 01/07/20 [Combigan 0.2%-0.5% Eye Drops] Famotidine 40 mg PO DAILY 01/07/20 01/07/20 Ipratropium Nebulized [Atrovent 0.5 mg INHALATION RT-Q6H PRN 01/07/20 01/07/20 Nebulized 0.2 MG/ML] Ketorolac 0.5% Ophth Soln [Acular] 1 drops BOTH EYES BID 01/07/20 01/07/20 Levofloxacin [Levaquin] 750 mg PO DAILY 01/07/20 01/07/20 Loteprednol Etabonate [Inveltys] 1 drop LEFT EYE BID 01/07/20 01/07/20 Mupirocin 2% Oint [Bactroban 2% 1 applic TOPICAL BID 01/07/20 01/07/20 Oint] Allergies Allergy/AdvReac Type Severity Reaction Status Date / Time losartan [Losartan] Allergy Severe Rash/Hives Verified 01/07/20 20:52 Penicillins Allergy Severe Rash/Hives Verified 01/07/20 20:52 cortisone [Cortisone] AdvReac Severe flushed Verified 01/07/20 20:52 skin, depression Tetanus Vaccines and Toxoid AdvReac Severe huge Verified 01/07/20 20:52 [Tetanus Vaccines & Toxoid] localized swelling Review of Systems ROS Statement: Those systems with pertinent positive or pertinent negative responses have been documented in the HPI. ROS Other: All systems not noted in ROS Statement are negative. Past Medical History Past Medical History: Cancer, Heart Failure, Hypertension, Osteoarthritis (OA), Pneumonia, Syncope Additional Past Medical History / Comment(s): P malignant HTN with pulmonary vascular congestion/R upper lung mass to be followed up upon. 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 History of Any Multi-Drug Resistant Organisms: None Reported Past Surgical History: Pacemaker Additional Past Surgical History / Comment(s): 2013 BiV AICD/generator change 2013 cardiac cath Past Anesthesia/Blood Transfusion Reactions: Unable to Obtain Additional Past Anesthesia/Blood Transfusion Reaction / Comment(s): Pt hsa never had general or spinal anesthesia. Type of Cardiac Device: Biventricular Pacemaker, AICD Device Placement Date:: 2013 Past Psychological History: No Psychological Hx Reported Smoking Status: Former smoker Past Alcohol Use History: None Reported Past Drug Use History: None Reported - Past Family History Brother(s) Family Medical History: Cancer Additional Family Medical History / Comment(s): pancreatic cancer Father Family Medical History: CVA/TIA, Hypertension Additional Family Medical History / Comment(s): third degree block, stroke Mother Family Medical History: Hypertension General Exam Limitations: no limitations General appearance: alert, in no apparent distress, other (Physical well- developed, well-nourished elderly female patient in no acute distress. Vital signs upon presentation are temperature 96.4F, pulse 61, respirations 16, blood pressure 85/40, pulse ox 97% on room air.) Eye exam: Present: normal appearance, PERRL, EOMI. Absent: scleral icterus, conjunctival injection, periorbital swelling ENT exam: Present: normal exam, normal oropharynx, mucous membranes moist Respiratory exam: Present: normal lung sounds bilaterally, other (Right upper chest wall port site is erythematous, tender, no drainage.). Absent: respiratory distress, wheezes, rales, rhonchi, stridor Cardiovascular Exam: Present: regular rate, normal rhythm, normal heart sounds. Absent: systolic murmur, diastolic murmur, rubs, gallop, clicks GI/Abdominal exam: Present: soft, normal bowel sounds. Absent: distended, tenderness, guarding, rebound, rigid Neurological exam: Present: alert, oriented X3, CN II-XII intact Psychiatric exam: Present: normal affect, normal mood Skin exam: Present: warm, dry, intact, normal color. Absent: rash Course Vital Signs 01/07/20 01/07/20 01/07/20 18:26 19:06 20:51 Temperature 96.4 F L Pulse Rate 61 65 65 Respiratory 16 18 Rate Blood Pressure 85/40 120/53 O2 Sat by Pulse 97 97 Oximetry 01/07/20 01/07/20 01/07/20 20:58 21:14 22:00 Temperature Pulse Rate 64 99 Respiratory 18 18 Rate Blood Pressure 143/63 130/67 O2 Sat by Pulse 100 Oximetry 01/08/20 00:00 Temperature 97.9 F Pulse Rate 79 Respiratory 17 Rate Blood Pressure 128/83 O2 Sat by Pulse 100 Oximetry Medical Decision Making - Medical Decision Making 69-year-old female patient with past medical history significant for lung cancer with completion of chemotherapy and radiation presents to the emergency department today for evaluation of infection near her port site to the right upper chest. Physical examination did reveal overlying erythema and tenderness. No purulent discharge at this time. Initial blood pressure was low however did improve without intervention and has remained stable. She is afebrile. Labs reviewed and did reveal normal white blood cell count. Troponin was obtained due to patient's report of weakness, fatigue, and significant nausea today. Troponin was elevated. Chest x-ray was obtained and did show cavitary infiltrate to the right upper lobe. We will cover with vancomycin, Rocephin, and a azithromycin for the poor infection as well as pneumonia. She'll be admitted to the hospital we will perform serial troponins and have her evaluated by cardiology and pulmonology as well. Patient is agreeable with this plan. - Lab Data Result diagrams: 01/07/20 19:24 01/07/20 20:51 Lab Results 01/07/20 01/07/20 01/07/20 Range/Units 19:24 19:24 19:24 WBC 6.1 (3.8-10.6) k/uL RBC 3.49 L (3.80-5.40) m/uL Hgb 11.4 (11.4-16.0) gm/dL Hct 36.0 (34.0-46.0) % MCV 103.3 H (80.0-100.0) fL MCH 32.8 (25.0-35.0) pg MCHC 31.8 (31.0-37.0) g/dL RDW 15.4 (11.5-15.5) % Plt Count 360 (150-450) k/uL MPV 7.2 Neutrophils % 75 % Lymphocytes % 13 % Monocytes % 8 % Eosinophils % 2 % Basophils % 1 % Neutrophils # 4.5 (1.3-7.7) k/uL Lymphocytes # 0.8 L (1.0-4.8) k/uL Monocytes # 0.5 (0-1.0) k/uL Eosinophils # 0.1 (0-0.7) k/uL Basophils # 0.0 (0-0.2) k/uL Macrocytosis Slight PT 9.8 (9.0-12.0) sec INR 0.9 (<1.2) APTT 28.6 (22.0-30.0) sec Sodium (137-145) mmol/L Potassium (3.5-5.1) mmol/L Chloride (98-107) mmol/L Carbon Dioxide (22-30) mmol/L Anion Gap mmol/L BUN (7-17) mg/dL Creatinine (0.52-1.04) mg/dL Est GFR (CKD-EPI)AfAm (>60 ml/min/1.73 sqM) Est GFR (CKD-EPI)NonAf (>60 ml/min/1.73 sqM) Glucose (74-99) mg/dL Plasma Lactic Acid Yousif 1.2 (0.7-2.0) mmol/L Calcium (8.4-10.2) mg/dL Total Bilirubin (0.2-1.3) mg/dL AST (14-36) U/L ALT (4-34) U/L Alkaline Phosphatase (38-126) U/L Troponin I (0.000-0.034) ng/mL Total Protein (6.3-8.2) g/dL Albumin (3.5-5.0) g/dL 01/07/20 01/07/20 01/07/20 Range/Units 19:24 20:51 22:19 WBC (3.8-10.6) k/uL RBC (3.80-5.40) m/uL Hgb (11.4-16.0) gm/dL Hct (34.0-46.0) % MCV (80.0-100.0) fL MCH (25.0-35.0) pg MCHC (31.0-37.0) g/dL RDW (11.5-15.5) % Plt Count (150-450) k/uL MPV Neutrophils % % Lymphocytes % % Monocytes % % Eosinophils % % Basophils % % Neutrophils # (1.3-7.7) k/uL Lymphocytes # (1.0-4.8) k/uL Monocytes # (0-1.0) k/uL Eosinophils # (0-0.7) k/uL Basophils # (0-0.2) k/uL Macrocytosis PT (9.0-12.0) sec INR (<1.2) APTT (22.0-30.0) sec Sodium 134 L (137-145) mmol/L Potassium 4.5 (3.5-5.1) mmol/L Chloride 107 (98-107) mmol/L Carbon Dioxide 20 L (22-30) mmol/L Anion Gap 7 mmol/L BUN 22 H (7-17) mg/dL Creatinine 0.90 (0.52-1.04) mg/dL Est GFR (CKD-EPI)AfAm 75 (>60 ml/min/1.73 sqM) Est GFR (CKD-EPI)NonAf 65 (>60 ml/min/1.73 sqM) Glucose 109 H (74-99) mg/dL Plasma Lactic Acid Yousif (0.7-2.0) mmol/L Calcium 8.9 (8.4-10.2) mg/dL Total Bilirubin 0.2 (0.2-1.3) mg/dL AST 15 (14-36) U/L ALT 9 (4-34) U/L Alkaline Phosphatase 43 (38-126) U/L Troponin I 0.043 H* 0.077 H* (0.000-0.034) ng/mL Total Protein 7.6 (6.3-8.2) g/dL Albumin 3.8 (3.5-5.0) g/dL - EKG Data -: EKG Interpreted by Me EKG Comments: EKG obtained at 2102 shows demand pacer, sinus rhythm with fusion complexes, right bundle branch block. Ventricular rate is 123, GA interval 144, QRS duration 182, QT 178, QTC 254. - Radiology Data Radiology results: report reviewed, image reviewed Two-view x-ray of the chest is obtained. Report was reviewed in its entirety. Impression by Dr. Neal shows no infiltrate right upper lobe and right paratracheal density compared to old exam. Possible cavitating infiltrate right upper lobe. Disposition Clinical Impression: Infected venous access port, Elevated troponin Disposition: ADMITTED IP TO THIS HOSP Condition: Serious Decision to Admit Reason: Admit from EC Decision Date: 01/07/20 Decision Time: 22:35
[2020-01-07] MEDS: SODIUM CHLORIDE 0.9% 500 ML 500 ML IV SCH ×2 (19:54→20:26)
[2020-01-07 20:03] LABS: Basophils % (A) 1 %; Eosinophils # (A) 0.1 k/uL (0-0.7); Eosinophils % (A) 2 %; HGB 11.4 gm/dL (11.4-16.0); Lymphocytes # (A) 0.8 k/uL (1.0-4.8); Lymphocytes % (A) 13 %; MCH 32.8 pg (25.0-35.0); MCHC 31.8 g/dL (31.0-37.0); MCV 103.3 fL (80.0-100.0); Macrocytosis Slight; Mean Platelet Volume 7.2; Monocytes # (A) 0.5 k/uL (0-1.0); Monocytes % (A) 8 %; Neutrophils # (A) 4.5 k/uL (1.3-7.7); Neutrophils % (A) 75 %; Platelet Count 360 k/uL (150-450); RBC 3.49 m/uL (3.80-5.40); RDW 15.4 % (11.5-15.5); WBC 6.1 k/uL (3.8-10.6)
[2020-01-07 20:36] LABS: INR 0.9 (<1.2); Partial Thromboplastin Time 28.6 sec (22.0-30.0); Prothrombin Time 9.8 sec (9.0-12.0)
[2020-01-07] MEDS ORDERED: IPRATROPIUM-ALBUTEROL 3 ML NEB INHALATION STA (20:47)
[2020-01-07] MEDS ORDERED: ACETAMINOPHEN TAB 500 MG TAB PO STA (21:17)
[2020-01-07 21:18] LABS: Albumin 3.8 g/dL (3.5-5.0); Calcium 8.9 mg/dL (8.4-10.2); Potassium 4.5 mmol/L (3.5-5.1); Total Bilirubin 0.2 mg/dL (0.2-1.3); Total Protein 7.6 g/dL (6.3-8.2)
[2020-01-07] MEDS: SODIUM CHLORIDE 0.9% 1,000 ML IV SCH (21:22)
[2020-01-07] MEDS ORDERED: VANCOMYCIN IV PER PHARMACY 1 EACH MISC MISCELLANE PRN (22:08)
[2020-01-07] MEDS ORDERED: NALOXONE 0.4 MG/ML 1 ML VIAL IV PRN (22:32)
[2020-01-07] MEDS ORDERED: ONDANSETRON 4 MG/2 ML VIAL IVP PRN (22:32)
[2020-01-07] MEDS ORDERED: VANCOMYCIN 1,500 MG in SODIUM CHLORIDE 0.9% 250 ML IVPB ONE (23:00)
--- NOTE | 2020-01-07 23:02 | XR ---
EXAMINATION TYPE: XR chest 2V DATE OF EXAM: 01/07/2020 COMPARISON: 07/24/2019 HISTORY: Short of breath TECHNIQUE: FINDINGS: Heart is normal. There is left axillary pacemaker. There is right-sided central venous cath eter with the tip in the superior vena cava. There is no pleural effusion. There is some infiltrate in the medial right upper lobe with possible cavitation. Left lung is clear. There is no heart failure. IMPRESSION: There is new infiltrate right upper lobe and right paratracheal density compared to old e xam. Possible cavitating infiltrate right upper lobe.
[2020-01-08] MEDS ORDERED: AZITHROMYCIN 500 MG in SODIUM CHLORIDE 0.9% 250 ML IVPB ONE ×3 (01:30)
[2020-01-08] MEDS: ACETAMINOPHEN TAB 325 MG TAB PO PRN ×3 (02:24→22:23)
[2020-01-08] MEDS ORDERED: HEPARIN SOD,PORK IN 0.45% NACL 25,000 UNIT in 0.45% NACL 1 250ML.BAG IV ONE (05:51)
[2020-01-08] MEDS: SODIUM CHLORIDE 0.9% 1,000 ML IV SCH ×3 (07:54→22:24)
[2020-01-08] MEDS ORDERED: IPRATROPIUM 0.5 MG/2.5 ML NEBU INHALATION PRN (10:18)
[2020-01-08] MEDS ORDERED: NON FORMULARY DRUG (Brimonidine Tartrate/Timolol [Combigan 0.2%-0.5% Eye Drops] 5 ML Drops LEFT EYE SCH (10:30)
--- NOTE | 2020-01-08 10:31 | CONS ---
CONSULTATION PULMONARY/CRITICAL CARE CONSULTATION: REASON FOR CONSULTATION: Rule out sepsis. DATE OF CONSULTATION: January 08, 2020 HISTORY OF PRESENT ILLNESS: 69-year-old female seen by my partner yesterday in the office. The patient presented to the emergency room on January 06 complaining of a possible infection at her MediPort site. She presented to the emergency room at 18:21. She complains of erythremia, pain and drainage of purulent material from the site of the port. She recently was started on and completed 10 days of Levaquin. But despite that, she is still having issues. She states it is very tender to touch. It is warm. It is red and swollen. In addition, she is complaining of generalized weakness and fatigue and just not feeling herself. She does have a bit of a cough, but she states that it is at baseline. She denies any chest pain or chest discomfort. She has a history of small- cell lung cancer and she has undergone both chemotherapy with Dr. Pugh and radiation therapy with Dr. Torin Rubi. She apparently has completed her treatments. She said that the cancer has responded very nicely to treatment. HOME MEDICATIONS: Reviewed. She is on aspirin, Aldactone, magnesium chloride, metoprolol, Zestril, albuterol updrafts, vitamin D3, eye drops, famotidine, Levaquin and Bactroban ointment. ALLERGIES: INCLUDE LOSARTAN, PENICILLIN, CORTISONE, AND TETANUS VACCINE. MEDICAL HISTORY: Small cell lung cancer, status post chemoradiation, CHF, hypertension, DJD, pneumonia, and syncope. She also has a history of nonischemic cardiomyopathy, complete heart block, status post AICD placement, and DJD. SURGICAL HISTORY: Includes AICD placement 2013 with a generator change in 2019 and a cardiac catheterization in 2013. SOCIAL HISTORY: Positive for previous tobacco use. Does not smoke currently. Denies any alcohol or illicit drug use. FAMILY HISTORY: Positive for brother with pancreatic cancer. Father with hypertension, CVA, and heart block, and mother with essential hypertension. REVIEW OF SYSTEMS: CONSTITUTIONAL weakness, fatigue, fever. NEUROLOGIC negative. HEENT negative. CARDIOVASCULAR negative. PULMONARY: Chronic cough, at baseline. GI negative. negative. RHEUMATOLOGIC negative. IMMUNOLOGIC negative. ENDOCRINOLOGIC negative., DERMATOLOGIC: Pain, swelling, redness and purulence at Mediport site. PHYSICAL EXAMINATION: VITAL SIGNS: Current vital signs are reviewed. Temperature is 97.8, heart rate 80, respiratory rate 17, blood pressure 130/74, mean 92, 2 L saturation 97%. GENERAL: Appears in no acute distress. HEENT: Examination is grossly unremarkable. NECK: Supple. Full range of motion. No adenopathy. Neck veins are flat. CARDIOVASCULAR: Examination reveals regular rhythm and rate. S1, S2 normal. No S3, S4, or murmur. LUNGS: Reveal clear breath sounds. No wheezes or rhonchi. ABDOMEN: Soft. Bowel sounds are heard. EXTREMITIES are intact. No cyanosis, clubbing, or edema. SKIN reveals an infected MediPort site on the right side of the chest. It is very tender to touch. There is purulence. It is red. It is warm to touch. It is tender. NEUROLOGIC examination is brief but nonfocal. LABS: Reviewed. White count 6.1, hemoglobin 11.4, hematocrit 36.0 platelet count 360,000. PT/INR, PTT normal sodium 134, potassium 4.5, chloride 107, CO2 20 anion gap is 7. BUN and creatinine were 22 and 0.9. Troponins were 0.043, 0.077 and 0.097. She is denying any chest discomfort. Microbiology is currently pending or negative. The patient had a chest x-ray. The chest x-ray shows right upper lobe infiltrate with right paratracheal density. This is likely the site of her small cell lung cancer. It appears that some of these changes may in fact be new. The patient had a recent CT scan of the chest done on December 22, which showed a partially calcified right paratracheal mass, stable or slightly smaller with distortion and consolidation within the right upper lobe and adjacent to the mass with progressive volume loss. In addition, there are changes of radiation pneumonitis for fibrosis and trace right-sided pleural effusion. Current medications reviewed. She is on Tylenol, azithromycin, ceftriaxone, vancomycin, Narcan. ASSESSMENT: 1. Infected MediPort site. 2. Small cell lung cancer, status post chemo radiation. 3. Radiation pneumonitis/fibrosis with chronic cough. 4. Mostly chronic changes right upper lobe, based on CT scan dated late November 2019. 5. History of congestive heart failure. 6. History of hypertension. 7. Degenerative joint disease. 8. Syncope. 9. Nonischemic cardiomyopathy. 10.Heart block, status post AICD placement 2013 with a generator change in 2019. 11.Degenerative joint disease. 12.Multiple other medical problems and comorbidities. PLAN: I would recommend Infectious Disease consultation. I agree with vancomycin. I do not know that she needs the Rocephin and Zithromax. Additional recommendations and suggestions are forthcoming. From the pulmonary status, she is stable. We will continue to follow. Prognosis is guarded given her primary diagnosis of small-cell lung cancer. MMODL / IJN: [id number] /
--- NOTE | 2020-01-08 10:45 | P.CRDCN ---
History of Present Illness Consult date: 01/08/20 Chief complaint: Feeling weak History of present illness: This is a very pleasant 69-year-old female patient who sees Dr. You as an outpatient with a past medical history significant for nonischemic cardiomyopathy and status post AICD as well as recent diagnosis of lung cancer and status post chemo and radiation therapy who currently does have a port in her chest presented to the hospital because of port infection. The patient has been dealing with the infection for the last several weeks. She was started on antibiotic without any improvement. She presented to the emergency department because she noticed that the erythema and the pain and the drainage over the port has gotten worse. The patient denies any symptoms of chest pain or chest discomfort or any shortness of breath or any dizziness or lightheadedness or feeling of heart racing or fluttering or syncope. She denies any fever or chills. She just feeling weak and tired. Because of that she presented to the emergency department. We consulted to see her because her troponin was checked and came in to be slightly abnormal but please note that the patient was tachy cardic and she presented to the hospital and also the patient does have nonischemic cardiomyopathy. The EKG showed sinus rhythm with paced QRS. The chest x-ray showed no acute abnormalities. The rest of her blood work overall came in to be unremarkable. Pulmonary is on the case and also infectious disease on the case. No recent echocardiogram was seen. Past Medical History Past Medical History: Cancer, Heart Failure, Hypertension, Osteoarthritis (OA), Pneumonia, Syncope Additional Past Medical History / Comment(s): P malignant HTN with pulmonary vascular congestion/R upper lung mass to be followed up upon. Other hx: N onischemic cardiomyopathy, chronic CHF, CHB with BiV AICD, bronchitis, arthritis in fingers/bilateral knees/toes/lumbar spine, tendonitis R ankle, varicosities, lung mass (small cell)pressing on pulmonary artry, bronchoscope done. History of Any Multi-Drug Resistant Organisms: None Reported Past Surgical History: Pacemaker Additional Past Surgical History / Comment(s): 2013 BiV AICD/generator change 2013 cardiac cath Past Anesthesia/Blood Transfusion Reactions: Unable to Obtain Additional Past Anesthesia/Blood Transfusion Reaction / Comment(s): Pt hsa never had general or spinal anesthesia. Type of Cardiac Device: Biventricular Pacemaker, AICD Device Placement Date:: 2013 Past Psychological History: No Psychological Hx Reported Smoking Status: Former smoker Past Alcohol Use History: None Reported Past Drug Use History: None Reported - Past Family History Brother(s) Family Medical History: Cancer Additional Family Medical History / Comment(s): pancreatic cancer Father Family Medical History: CVA/TIA, Hypertension Additional Family Medical History / Comment(s): third degree block, stroke Mother Family Medical History: Hypertension Medications and Allergies Home Medications Medication Instructions Recorded Confirmed Type Aspirin 81 mg PO DAILY 07/27/13 01/07/20 History Spironolactone [Aldactone] 12.5 mg PO DAILY 07/27/13 01/07/20 History Magnesium Chloride [Mag64] 64 mg PO DAILY 03/19/19 01/07/20 History Metoprolol Succinate (ER) [Toprol 50 mg PO DAILY 03/19/19 01/07/20 History XL] lisinopriL [Zestril] 10 mg PO DAILY 03/19/19 01/07/20 History Albuterol Nebulized [Ventolin 2.5 mg INHALATION RT-TID PRN 07/24/19 01/07/20 History Nebulized] Cholecalciferol [Vitamin D3 (25 2,000 unit PO DAILY 07/24/19 01/07/20 History Mcg = 1000 Iu)] Brimonidine Tartrate/Timolol 1 drop LEFT EYE BID 01/07/20 01/07/20 History [Combigan 0.2%-0.5% Eye Drops] Famotidine 40 mg PO DAILY 01/07/20 01/07/20 History Ipratropium Nebulized [Atrovent 0.5 mg INHALATION RT-Q6H PRN 01/07/20 01/07/20 History Nebulized 0.2 MG/ML] Ketorolac 0.5% Ophth Soln [Acular] 1 drops BOTH EYES BID 01/07/20 01/07/20 History Levofloxacin [Levaquin] 750 mg PO DAILY 01/07/20 01/07/20 History Loteprednol Etabonate [Inveltys] 1 drop LEFT EYE BID 01/07/20 01/07/20 History Mupirocin 2% Oint [Bactroban 2% 1 applic TOPICAL BID 01/07/20 01/07/20 History Oint] Allergies Allergy/AdvReac Type Severity Reaction Status Date / Time losartan [Losartan] Allergy Severe Rash/Hives Verified 01/07/20 20:52 Penicillins Allergy Severe Rash/Hives Verified 01/07/20 20:52 cortisone [Cortisone] AdvReac Severe flushed Verified 01/07/20 20:52 skin, depression Tetanus Vaccines and Toxoid AdvReac Severe huge Verified 01/07/20 20:52 [Tetanus Vaccines & Toxoid] localized swelling Physical Exam Vitals: Vital Signs Temp Pulse Resp BP Pulse Ox 01/08/20 04:00 97.8 F 80 17 130/74 97 01/08/20 00:00 97.9 F 79 17 128/83 100 01/07/20 22:00 18 130/67 01/07/20 21:14 99 18 143/63 100 01/07/20 20:58 64 01/07/20 20:51 65 01/07/20 19:06 65 18 120/53 97 01/07/20 18:26 96.4 F L 61 16 85/40 97 Intake and Output 01/07/20 01/08/20 01/08/20 22:59 06:59 14:59 Other: Weight 105.687 kg - Constitutional General appearance: no acute distress - Respiratory Respiratory: bilateral: CTA - Cardiovascular Rhythm: regular Heart sounds: normal: S1, S2 Abnormal Heart Sounds: systolic murmur Results 01/07/20 19:24 01/07/20 20:51 Cardiac Enzymes 01/07/20 01/07/20 01/07/20 Range/Units 19:24 20:51 22:19 AST 15 (14-36) U/L Troponin I 0.043 H* 0.077 H* (0.000-0.034) ng/mL 01/08/20 Range/Units 01:38 AST (14-36) U/L Troponin I 0.097 H* (0.000-0.034) ng/mL Coagulation 01/07/20 Range/Units 19:24 PT 9.8 (9.0-12.0) sec APTT 28.6 (22.0-30.0) sec CBC 01/07/20 Range/Units 19:24 WBC 6.1 (3.8-10.6) k/uL RBC 3.49 L (3.80-5.40) m/uL Hgb 11.4 (11.4-16.0) gm/dL Hct 36.0 (34.0-46.0) % Plt Count 360 (150-450) k/uL Comprehensive Metabolic Panel 01/07/20 Range/Units 20:51 Sodium 134 L (137-145) mmol/L Potassium 4.5 (3.5-5.1) mmol/L Chloride 107 (98-107) mmol/L Carbon Dioxide 20 L (22-30) mmol/L BUN 22 H (7-17) mg/dL Creatinine 0.90 (0.52-1.04) mg/dL Glucose 109 H (74-99) mg/dL Calcium 8.9 (8.4-10.2) mg/dL AST 15 (14-36) U/L ALT 9 (4-34) U/L Alkaline Phosphatase 43 (38-126) U/L Total Protein 7.6 (6.3-8.2) g/dL Albumin 3.8 (3.5-5.0) g/dL Current Medications Generic Name Dose Route Start Last Admin Trade Name Freq PRN Reason Stop Dose Admin Acetaminophen 650 mg 01/08/20 02:21 01/08/20 02:24 Acetaminophen Tab 325 Mg Tab PO 650 mg Q6HR PRN Administration Fever and/ or Pain Albuterol Sulfate 2.5 mg 01/08/20 10:18 Albuterol Nebulized 2.5 Mg/3 Ml INHALATION RT-TID PRN Shortness Of Breath Aspirin 81 mg 01/09/20 09:00 Aspirin 81 Mg PO DAILY DEJA Sodium Chloride 1,000 mls @ 130 mls/hr 01/07/20 20:00 01/08/20 07:54 Saline 0.9% IV 130 mls/hr .[id number] DEJA Administration Ceftriaxone Sodium 1 gm/ 50 mls @ 100 mls/hr 01/08/20 22:00 Sodium Chloride IVPB Q24H DEJA Azithromycin 500 mg/ Sodium 250 mls @ 250 mls/hr 01/08/20 23:00 Chloride IVPB Q24H DEJA Vancomycin HCl 1,750 mg/ 500 mls @ 167 mls/hr 01/08/20 16:00 Sodium Chloride IVPB Q16H DEJA Ipratropium [place] 0.5 mg 01/08/20 10:18 Ipratropium 0.5 Mg/2.5 Ml Nebu INHALATION RT-Q6H PRN Shortness Of Breath Ketorolac Tromethamine 1 drops 01/08/20 10:30 Ketorolac 0.5% Ophth Drops 5 Ml Btl BOTH EYES BID DEJA Lisinopril 10 mg 01/08/20 10:30 Lisinopril 10 Mg Tab PO DAILY DEJA Metoprolol Succinate 50 mg 01/08/20 10:30 Metoprolol Succinate (Er) 50 Mg Tab.Er.24h PO DAILY DEJA Mupirocin 1 applic 01/08/20 21:00 Mupirocin 2% Oint 22 Gm Tube TOPICAL BID DEJA Naloxone HCl 0.2 mg 01/07/20 22:32 Naloxone 0.4 Mg/Ml 1 Ml Vial IV Q2M PRN Opioid Reversal Non-Formulary Medication 1 drop 01/08/20 10:30 Brimonidine Tartrate/Timolol [Combigan 0.2%-0.5% Eye Drops] LEFT EYE BID DEJA Non-Formulary Medication 40 mg 01/08/20 10:30 Famotidine [Famotidine] PO DAILY DEJA Non-Formulary Medication 64 mg 01/08/20 10:30 Magnesium Chloride [Mag64] PO DAILY DEJA Non-Formulary Medication 1 drop 01/08/20 10:30 Loteprednol Etabonate [Inveltys] LEFT EYE BID DEJA Intake and Output 01/07/20 01/08/20 01/08/20 22:59 06:59 14:59 Other: Weight 105.687 kg 01/07/20 19:24 01/07/20 20:51 Assessment and Plan Assessment: Assessment #1 port infection #2 history of lung cancer #3 nonischemic cardiomyopathy #4 the patient does have AICD #5 multiple comorbid conditions Plan #1 currently the patient is on antibiotic #2 infectious disease is on the case #3 I would advise 3.infection aggressively in view of the patient having a device #4 medical treatment for the mildly abnormal troponin which is likely secondary to tachycardia and cardiomyopathy #5 continue aspirin as well as beta canelo as well as MATT inhibitor #6 obtain an echocardiogram was Doppler Follow-up with the patient
[2020-01-08] MEDS: MAGNESIUM OXIDE 400 MG TAB PO SCH (11:13)
[2020-01-08] MEDS: FAMOTIDINE 20 MG TAB PO SCH (11:13)
[2020-01-08] MEDS: METOPROLOL SUCCINATE (ER) 50 MG TAB.ER.24H PO SCH (11:13)
[2020-01-08] MEDS: lisinopriL 10 MG TAB PO SCH (11:14)
[2020-01-08] MEDS ORDERED: VANCOMYCIN IV PER PHARMACY 1 EACH MISC MISCELLANE PRN (11:30)
[2020-01-08] MEDS: KETOROLAC 0.5% OPHTH DROPS 5 ML BTL BOTH EYES SCH ×2 (14:00→21:09)
[2020-01-08] MEDS: BRIMONIDINE TARTRATE 0.2% DROPS 5 ML BTL LEFT EYE SCH ×2 (14:00→21:09)
[2020-01-08] MEDS: LOTEPREDNOL ETABONATE LEFT EYE SCH ×2 (14:00→21:48)
[2020-01-08] MEDS: TIMOLOL 0.5% OPHTH DROPS 5 ML BTL LEFT EYE SCH ×2 (14:00→21:09)
--- NOTE | 2020-01-08 15:52 | P.GSCN ---
History of Present Illness Consult date: 01/08/20 History of present illness: CHIEF COMPLAINT: Mediport infection HISTORY OF PRESENT ILLNESS: The patient is a 69 year old female who reports getting her mediport in April 2019, 8 months ago, followed by completion of her therapy 1 month later in May 2019. She has history of lung cancer. She reports her port was fine until the last 2+ weeks after attempted withdrawal of blood from her port. Otherwise, she reports limited access and use of her port. She reports pain, tenderness, and redness at the site. WBC on presentation was normal at 6.1. General surgery is consulted for port site infection. PAST MEDICAL HISTORY: See list and reviewed PAST SURGICAL HISTORY: See list and reviewed MEDICATIONS: See list and reviewed ALLERGIES: See list and reviewed SOCIAL HISTORY: See list and reviewed FAMILY HISTORY: See list and reviewed REVIEW OF ORGAN SYSTEMS: CONSTITUTIONAL: No fevers or chills. No recent weight loss. EYES: Denies any trouble with vision. No glasses. HEENT: No difficulties with hearing. No nosebleeds. No difficulty swallowing. RESPIRATORY: Has lung cancer. Past pneumonia. CARDIOVASCULAR: Has cardiomyopathy. Has congestive heart failure. Has pacemaker. GASTROINTESTINAL: Denies fatty food intolerance. Denies change in bowel habits and gas bloat. GENITOURINARY: Denies any blood in urine or increased urinary frequency. NEUROLOGICAL: Denies any numbness or tingling along the distal extremities. No seizure disorders or headaches. MUSCULOSKELETAL: Has back pain, stiffness or joint arthritis. SKIN: No current skin cancer. See above. PSYCHIATRIC: Denies current depression or suicidal thoughts. ENDOCRINE: Denies current thyroid disorders. Denies any blood sugar glucose intolerance. HEME/LYMPHATIC: Denies any lumps and bumps around the neck. No recent deep venous thrombosis. ALLERGY/IMMUNOLOGY: No immunoglobulin therapy. No immune deficiencies. BREAST: Denies current breast lumps, pain or nipple discharge. PHYSICAL EXAM: VITALS: Reviewed CONSTITUTIONAL: Well developed and in no acute distress. EYES: Conjuctivae without sclera icterus. Pupils are equally round and reactive to light. Extraocular movements grossly intact. HEAD, EARS, NOSE, THROAT: Moist buccal mucosa. Head is atraumatic, normocephal ic. Hears conversational speech. No nasal drainage. NECK: Supple. No thyroidomegaly. RESPIRATORY: Non-labored respirations and equal bilateral excursions. CHEST: Erythema at port site and localized. No purulence expressed. CARDIOVASCULAR: Regular rate and rhythm. Extremities without moderate edema. Palpable 2+ radial pulses. ABDOMEN: Soft. Non-tender. Nondistended. MUSCULOSKELETAL: Nail and fingers with good capillary refill. SKIN: Warm and well perfused with good skin turgor. NEUROLOGIC: Cranial nerves II through XII grossly intact. Sensation upper and extremities intact. No focal or lateralizing signs. PSYCH: Appropriate affect. Alert and oriented to person, place and time. Disp lays appropriate insight. CLINCAL LABS: Reviewed. WBC normal. Troponin elevated. ASSESSMENT: 1. Port infection following blood draws through port 2. Lung cancer 3. Congestive heart failure PLAN: 1. Await management by cardiology for elevated tropinin 2. Will re-evaluate for removal of port pending cardiology clearance. Thank you for this kind consultation. 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 Completed chemo and radiation. 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 History of Any Multi-Drug Resistant Organisms: None Reported Past Surgical History: Pacemaker Additional Past Surgical History / Comment(s): 2013 BiV AICD/generator change 2013 cardiac cath Past Anesthesia/Blood Transfusion Reactions: No Reported Reaction Additional Past Anesthesia/Blood Transfusion Reaction / Comm: Pt hsa never had general or spinal anesthesia. Type of Cardiac Device: Biventricular Pacemaker, AICD Device Placement Date:: 2013 Past Psychological History: No Psychological Hx Reported Additional Psychological History / Comment(s): Pt resides alone. She is independent. Smoking Status: Former smoker Past Alcohol Use History: None Reported Additional Past Alcohol Use History / Comment(s): Pt started smoking in 1964 and quit in 2012. Past Drug Use History: None Reported - Past Family History Brother(s) Family Medical History: Cancer Additional Family Medical History / Comment(s): pancreatic cancer Father Family Medical History: CVA/TIA, Hypertension Additional Family Medical History / Comment(s): third degree block, stroke Mother Family Medical History: Hypertension Medications and Allergies Home Medications Medication Instructions Recorded Confirmed Type Aspirin 81 mg PO DAILY 07/27/13 01/07/20 History Spironolactone [Aldactone] 12.5 mg PO DAILY 07/27/13 01/07/20 History Magnesium Chloride [Mag64] 64 mg PO DAILY 03/19/19 01/07/20 History Metoprolol Succinate (ER) [Toprol 50 mg PO DAILY 03/19/19 01/07/20 History XL] lisinopriL [Zestril] 10 mg PO DAILY 03/19/19 01/07/20 History Albuterol Nebulized [Ventolin 2.5 mg INHALATION RT-TID PRN 07/24/19 01/07/20 His tory Nebulized] Cholecalciferol [Vitamin D3 (25 2,000 unit PO DAILY 07/24/19 01/07/20 History Mcg = 1000 Iu)] Brimonidine Tartrate/Timolol 1 drop LEFT EYE BID 01/07/20 01/07/20 History [Combigan 0.2%-0.5% Eye Drops] Famotidine 40 mg PO DAILY 01/07/20 01/07/20 History Ipratropium Nebulized [Atrovent 0.5 mg INHALATION RT-Q6H PRN 01/07/20 01/07/20 History Nebulized 0.2 MG/ML] Ketorolac 0.5% Ophth Soln [Acular] 1 drops BOTH EYES BID 01/07/20 01/07/20 History Levofloxacin [Levaquin] 750 mg PO DAILY 01/07/20 01/07/20 History Loteprednol Etabonate [Inveltys] 1 drop LEFT EYE BID 01/07/20 01/07/20 History Mupirocin 2% Oint [Bactroban 2% 1 applic TOPICAL BID 01/07/20 01/07/20 History Oint] Allergies Allergy/AdvReac Type Severity Reaction Status Date / Time losartan [Losartan] Allergy Severe Rash/Hives Verified 01/07/20 20:52 Penicillins Allergy Severe Rash/Hives Verified 01/07/20 20:52 cortisone [Cortisone] AdvReac Severe flushed Verified 01/07/20 20:52 skin, depression Tetanus Vaccines and Toxoid AdvReac Severe huge Verified 01/07/20 20:52 [Tetanus Vaccines & Toxoid] localized swelling Surgical - Exam Vital Signs Temp Pulse Resp BP Pulse Ox 96.4 F L 61 16 85/40 97 01/07/20 18:26 01/07/20 18:26 01/07/20 18:26 01/07/20 18:26 01/07/20 18:26 Results - Labs 01/07/20 19:24 01/07/20 20:51 Abnormal Lab Results - Last 24 Hours (Table) 01/07/20 01/07/20 01/07/20 Range/Units 19:24 19:24 20:51 RBC 3.49 L (3.80-5.40) m/uL MCV 103.3 H (80.0-100.0) fL Lymphocytes # 0.8 L (1.0-4.8) k/uL Sodium 134 L (137-145) mmol/L Carbon Dioxide 20 L (22-30) mmol/L BUN 22 H (7-17) mg/dL Glucose 109 H (74-99) mg/dL Troponin I 0.043 H* (0.000-0.034) ng/mL 01/07/20 01/08/20 Range/Units 22:19 01:38 RBC (3.80-5.40) m/uL MCV (80.0-100.0) fL Lymphocytes # (1.0-4.8) k/uL Sodium (137-145) mmol/L Carbon Dioxide (22-30) mmol/L BUN (7-17) mg/dL Glucose (74-99) mg/dL Troponin I 0.077 H* 0.097 H* (0.000-0.034) ng/mL Microbiology - Last 24 Hours (Table) 01/07/20 22:42 Gram Stain - Preliminary Chest Wound Culture - Preliminary Diabetes panel 01/07/20 Range/Units 20:51 Sodium 134 L (137-145) mmol/L Potassium 4.5 (3.5-5.1) mmol/L Chloride 107 (98-107) mmol/L Carbon Dioxide 20 L (22-30) mmol/L BUN 22 H (7-17) mg/dL Creatinine 0.90 (0.52-1.04) mg/dL Glucose 109 H (74-99) mg/dL Calcium 8.9 (8.4-10.2) mg/dL AST 15 (14-36) U/L ALT 9 (4-34) U/L Alkaline Phosphatase 43 (38-126) U/L Total Protein 7.6 (6.3-8.2) g/dL Albumin 3.8 (3.5-5.0) g/dL Calcium panel 01/07/20 Range/Units 20:51 Calcium 8.9 (8.4-10.2) mg/dL Albumin 3.8 (3.5-5.0) g/dL Pituitary panel 01/07/20 Range/Units 20:51 Sodium 134 L (137-145) mmol/L Potassium 4.5 (3.5-5.1) mmol/L Chloride 107 (98-107) mmol/L Carbon Dioxide 20 L (22-30) mmol/L BUN 22 H (7-17) mg/dL Creatinine 0.90 (0.52-1.04) mg/dL Glucose 109 H (74-99) mg/dL Calcium 8.9 (8.4-10.2) mg/dL Adrenal panel 01/07/20 Range/Units 20:51 Sodium 134 L (137-145) mmol/L Potassium 4.5 (3.5-5.1) mmol/L Chloride 107 (98-107) mmol/L Carbon Dioxide 20 L (22-30) mmol/L BUN 22 H (7-17) mg/dL Creatinine 0.90 (0.52-1.04) mg/dL Glucose 109 H (74-99) mg/dL Calcium 8.9 (8.4-10.2) mg/dL Total Bilirubin 0.2 (0.2-1.3) mg/dL AST 15 (14-36) U/L ALT 9 (4-34) U/L Alkaline Phosphatase 43 (38-126) U/L Total Protein 7.6 (6.3-8.2) g/dL Albumin 3.8 (3.5-5.0) g/dL Assessment and Plan (1) Elevated troponin Current Visit: Yes Status: Acute Code(s): R77.8 - OTHER SPECIFIED ABNORMALITIES OF PLASMA PROTEINS SNOMED Code(s): 322876316 (2) Infected venous access port Current Visit: Yes Status: Acute Code(s): T80.219A - UNSP INFECTION DUE TO CENTRAL VENOUS CATHETER, INIT ENCNTR SNOMED Code(s): 426815746
[2020-01-08] MEDS ORDERED: NAPROXEN 250 MG TAB PO STA (16:17)
--- NOTE | 2020-01-08 16:43 | P.HPIM ---
History of Present Illness H&P Date: 01/08/20 Chief Complaint: Painful port with pus drainage Chief Complaint: Chest tightness History of presenting complaint: This is a pleasant 69-year-old patient of Dr. tolliver. Chronic stable medical conditions include hypertension, osteoarthritis, varicose veins, and pacemaker for complete heart block.. 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 Treated with chemotherapy and radiation . Patient has been felt to be in remission for last few months. Patient has a port in the right upper chest which is only used occasionally for blood draw. Patient started having the pain in the same area for last few days. She did get antibiotics with family doctor for 2 weeks at slow improvement. But again. Symptoms progressed. Very painful tender and drainage of pus. She also saw Dr. Pugh. Subsequently she was sent down to the ER because the new graft pain. An pus drainage. Patient has no cough or sputum production. Patient also has noticed some pain across the chest. Which is worse with movement. No radiation. No dizziness the lightheadedness. Denies any fever and chills. 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 No alcohol history. Smoked a pack and half to 2 packs a day for about 44 years. Stopped in 2012. Physical examination: VITAL SIGNS: 96.4, 61, 16, 120/53, 97% room air GENERAL: BMI 36.5, sitting up in a chair, a bit tired EYES: Pupils equal. Conjunctiva pale HEENT: External appearance of nose and ears normal, oral cavity grossly normal patient NECK: JVD not raised; masses not palpable. HEART: First and second heart sounds are normal; no edema. LUNGS: Respiratory rate normal, decreased breath sounds. ABDOMEN: Soft, nontender, liver spleen not palpable, no masses palpable. PSYCH: Alert and oriented x3; mood and affect normal. CHEST wall: Port right infraclavicular medullary tenderness around the same. Local redness MUSCULOSKELETAL: Evidence of OA especially in the hands NEUROLOGICAL: Cranial nerves grossly intact; no facial asymmetry, power and sensation grossly intact. LYMPHATICS: No lymph nodes palpable in the axilla and neck INVESTIGATIONS, reviewed in the clinical context: White count 6.1 hemoglobin 11.4 platelets 360 potassium 4.5 creatinine 0.9 Troponin I 0.043, 0.077, 0.097 EKG tracing-personally reviewed by me- paced rhythm Chest x-ray film personally reviewed by me-infiltrate right upper lobe, mediastinum to the right some stenting of the right diaphragm Computed tomography scan of the chest from December 22-shows radiation scarring in the right upper lobe and contraction Assessment: -Infected port in the right upper chest wall having failed outpatient treatment. Patient has been draining pus from the same. -Patient also had pain across the chest along with troponin rise and fall-que stion- acute non-Q wave NE. -COPD in an ex-smoker -small cell lung cancer status post chemotherapy and radiation -Radiation pneumonitis/fibrosis right upper lung with contraction and mediastinal shift -Essential hypertension -Pacemaker for complete heart block -Primary osteoarthritis -Bilateral lower extremity varicose veins -Obesity BMI 36.5 -Radiation esophagitis improved Plan: Will DC ceftriaxone Zithromax. Start vancomycin. Wound cultures have been sent off. Patient has no clinical evidence of pneumonia. Both cardiology and pulmonary have been consulted. ID was consulted. Home medications resumed. Care was discussed with the patient , questions answered Past Medical History Past Medical History: Cancer, Heart Failure, Hypertension, Osteoarthritis (OA), Pneumonia, Syncope Additional Past Medical History / Comment(s): P malignant HTN with pulmonary vascular congestion/R upper lung mass to be followed up upon. 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 History of Any Multi-Drug Resistant Organisms: None Reported Past Surgical History: Pacemaker Additional Past Surgical History / Comment(s): 2013 BiV AICD/generator change 2013 cardiac cath Past Anesthesia/Blood Transfusion Reactions: Unable to Obtain Additional Past Anesthesia/Blood Transfusion Reaction / Comment(s): Pt hsa never had general or spinal anesthesia. Type of Cardiac Device: Biventricular Pacemaker, AICD Device Placement Date:: 2014 Past Psychological History: No Psychological Hx Reported Smoking Status: Former smoker Past Alcohol Use History: None Reported Past Drug Use History: None Reported - Past Family History Brother(s) Family Medical History: Cancer Additional Family Medical History / Comment(s): pancreatic cancer Father Family Medical History: CVA/TIA, Hypertension Additional Family Medical History / Comment(s): third degree block, stroke Mother Family Medical History: Hypertension Medications and Allergies Home Medications Medication Instructions Recorded Confirmed Type Aspirin 81 mg PO DAILY 07/27/13 01/07/20 History Spironolactone [Aldactone] 12.5 mg PO DAILY 07/27/13 01/07/20 History Magnesium Chloride [Mag64] 64 mg PO DAILY 03/19/19 01/07/20 History Metoprolol Succinate (ER) [Toprol 50 mg PO DAILY 03/19/19 01/07/20 History XL] lisinopriL [Zestril] 10 mg PO DAILY 03/19/19 01/07/20 History Albuterol Nebulized [Ventolin 2.5 mg INHALATION RT-TID PRN 07/24/19 01/07/20 History Nebulized] Cholecalciferol [Vitamin D3 (25 2,000 unit PO DAILY 07/24/19 01/07/20 History Mcg = 1000 Iu)] Brimonidine Tartrate/Timolol 1 drop LEFT EYE BID 01/07/20 01/07/20 History [Combigan 0.2%-0.5% Eye Drops] Famotidine 40 mg PO DAILY 01/07/20 01/07/20 History Ipratropium Nebulized [Atrovent 0.5 mg INHALATION RT-Q6H PRN 01/07/20 01/07/20 History Nebulized 0.2 MG/ML] Ketorolac 0.5% Ophth Soln [Acular] 1 drops BOTH EYES BID 01/07/20 01/07/20 History Levofloxacin [Levaquin] 750 mg PO DAILY 01/07/20 01/07/20 History Loteprednol Etabonate [Inveltys] 1 drop LEFT EYE BID 01/07/20 01/07/20 History Mupirocin 2% Oint [Bactroban 2% 1 applic TOPICAL BID 01/07/20 01/07/20 History Oint] Allergies Allergy/AdvReac Type Severity Reaction Status Date / Time losartan [Losartan] Allergy Severe Rash/Hives Verified 01/07/20 20:52 Penicillins Allergy Severe Rash/Hives Verified 01/07/20 20:52 cortisone [Cortisone] AdvReac Severe flushed Verified 01/07/20 20:52 skin, depression Tetanus Vaccines and Toxoid AdvReac Severe huge Verified 01/07/20 20:52 [Tetanus Vaccines & Toxoid] localized swelling Physical Exam Vitals: Vital Signs Temp Pulse Resp BP Pulse Ox 01/08/20 04:00 97.8 F 80 17 130/74 97 01/08/20 00:00 97.9 F 79 17 128/83 100 01/07/20 22:00 18 130/67 01/07/20 21:14 99 18 143/63 100 01/07/20 20:58 64 01/07/20 20:51 65 01/07/20 19:06 65 18 120/53 97 01/07/20 18:26 96.4 F L 61 16 85/40 97 Intake and Output 01/07/20 01/08/20 01/08/20 22:59 06:59 14:59 Other: Weight 105.687 kg Results CBC & Chem 7: 01/07/20 19:24 01/07/20 20:51 Labs: Abnormal Lab Results - Last 24 Hours (Table) 01/07/20 01/07/20 01/07/20 Range/Units 19:24 19:24 20:51 RBC 3.49 L (3.80-5.40) m/uL MCV 103.3 H (80.0-100.0) fL Lymphocytes # 0.8 L (1.0-4.8) k/uL Sodium 134 L (137-145) mmol/L Carbon Dioxide 20 L (22-30) mmol/L BUN 22 H (7-17) mg/dL Glucose 109 H (74-99) mg/dL Troponin I 0.043 H* (0.000-0.034) ng/mL 01/07/20 01/08/20 Range/Units 22:19 01:38 RBC (3.80-5.40) m/uL MCV (80.0-100.0) fL Lymphocytes # (1.0-4.8) k/uL Sodium (137-145) mmol/L Carbon Dioxide (22-30) mmol/L BUN (7-17) mg/dL Glucose (74-99) mg/dL Troponin I 0.077 H* 0.097 H* (0.000-0.034) ng/mL Microbiology - Last 24 Hours (Table) 01/07/20 22:42 Wound Culture - Preliminary Chest
[2020-01-08] MEDS: VANCOMYCIN 1,750 MG in SODIUM CHLORIDE 0.9% 500 ML 500 ML IVPB SCH (16:54)
[2020-01-08] MEDS: ENOXAPARIN 40 MG/0.4 ML SYRINGE SQ SCH (18:35)
[2020-01-08] MEDS: MUPIROCIN 2% OINT 22 GM TUBE TOPICAL SCH (21:09)
[2020-01-08] MEDS ORDERED: AZITHROMYCIN 500 MG in SODIUM CHLORIDE 0.9% 250 ML IVPB SCH (23:00)
--- NOTE | 2020-01-08 23:44 | CONS ---
CONSULTATION DATE OF SERVICE: 01/08/2020. REASON FOR CONSULTATION: Infected port. HISTORY OF PRESENT ILLNESS: The patient is a 69-year-old female with a past medical history significant for small cell lung cancer in this patient who did have a MediPort placement in May of 2019 for chemotherapy in this patient who has completed her chemoradiation. The patient did have blood draw from her port about 3 weeks ago. The week later the patient noticed to having increasing pain, swelling and redness and some drainage from her right chest wall MediPort site. The patient has been evaluated in the outpatient setting by her primary care physician and the patient has been treated with oral Levaquin. The patient did not have significant improvement with the oral antibiotic. The patient presenting to the ER at [facility] last evening for evaluation of her worsening pain, swelling, redness and drainage from the MediPort site. Patient complaining of pain to be throbbing 5 to 6 out of 10 and no radiation. Did have some purulent drainage and no improvement with 10 day course of oral Levaquin. The patient denies high-grade fever or any chills. No chest pain. No shortness with minimal cough. No nausea. No abdominal pain. No diarrhea. On arrival to the ER, the patient was afebrile. The patient did have a normal white count, did have elevated troponin. Patient did have local cultures obtained, currently pending. Blood cultures are pending as well. The patient did have a chest x-ray with new inflated right upper lobe possible acute infiltrate right upper lobe as well. The patient has been started on vancomycin, Rocephin and Zithromax, admitted to the hospital. Infectious Disease was consulted for further management of antibiotic therapy. General Surgery has been consulted for possible removal of this port. REVIEW OF SYSTEMS: Positive points have been mentioned in HPI. Rest of systems negative. PAST MEDICAL HISTORY: Positive for cancer of the lung, heart failure, hypertension, osteoarthritis, pneumonia, syncope. PAST SURGICAL HISTORY: AICD placement, cardiac cath and MediPort placement in May of 2019. SOCIAL HISTORY: Remote history of smoking, no drinking or drug use. FAMILY HISTORY: Brother history of pancreatic cancer. Mother with history of stroke and hypertension. ALLERGIES: TO PENICILLIN, LOSARTAN, CORTISONE, TETANUS TOXOID. MEDICATION: The patient is currently covered with Rocephin 1 g daily, Zithromax, aspirin, Lovenox, Pepcid, Zestril, Mag oxide, Narcan, naproxen, vancomycin pharmacy to dose. PHYSICAL EXAMINATION: Blood pressure 153/70 with a pulse of 82. Temperature 97.9, she is 98% on room air. General description: The patient is an elderly female lying in bed in no distress. No tachypnea or accessory muscle of respiration use. HEENT: No pallor or scleral icterus. Oral mucosa membranes dry. Neck: Trachea central. No thyromegaly. LUNGS: Unlabored breathing, clear to auscultation anteriorly with crackles. Heart S1, S2. Regular rate. ABDOMEN: Soft. No tenderness. EXTREMITIES are no edema of the feet. Examination of the right chest wall: MediPort site is swollen and red. No purulent drainage was noticed. NEUROLOGICAL: Patient is awake, alert, oriented times three. Mood and affect normal. LABS: Hemoglobin 11.4, white count 6.1, BUN of 22, creatinine 0.90. Blood and local wound culture pending. IMPRESSION/PLAN: 1. Patient with infected MediPort started about 3 weeks ago after blood draw and has failed to respond to outpatient oral Levaquin therapy. Need to cover for the gram- positive skin rajeev with likely pathogen such as strep and MRSA. 2. Patient with multiple antibiotic allergies that will limit the number of antibiotics safe to use. PLAN: 1. Vancomycin pharmacy to dose target of 15 while watching kidney function and Vancomycin trough closely. 2. Wait for the cultures to finalize and possible removal of this port in order to completely cover this infection. 3. We will follow on clinical condition and culture to further adjust medication if needed. Thank you for this consultation. We will follow this patient along with you. MMODL / IJN: [id number] /
[2020-01-09] MEDS: NAPROXEN 250 MG TAB PO PRN ×2 (03:50→13:46)
[2020-01-09] MEDS: ALBUTEROL NEBULIZED 2.5 MG/3 ML INHALATION PRN ×2 (03:51→08:09)
[2020-01-09] MEDS: SODIUM CHLORIDE 0.9% 1,000 ML IV SCH ×3 (03:51→20:04)
[2020-01-09 07:53] LABS: African American GFR (CKD) >90 (>60 ml/min/1.73 sqM); Non-African American GFR(CKD) 88 (>60 ml/min/1.73 sqM)
[2020-01-09] MEDS: ENOXAPARIN 40 MG/0.4 ML SYRINGE SQ SCH (08:03)
[2020-01-09] MEDS: ASPIRIN 81 MG PO SCH (08:03)
[2020-01-09] MEDS: ACETAMINOPHEN TAB 325 MG TAB PO PRN ×2 (08:03→20:27)
[2020-01-09] MEDS: FAMOTIDINE 20 MG TAB PO SCH (08:04)
[2020-01-09] MEDS: MAGNESIUM OXIDE 400 MG TAB PO SCH (08:04)
[2020-01-09] MEDS: SPIRONOLACTONE 25 MG TAB PO SCH (08:04)
[2020-01-09] MEDS: METOPROLOL SUCCINATE (ER) 50 MG TAB.ER.24H PO SCH (08:04)
[2020-01-09] MEDS: lisinopriL 10 MG TAB PO SCH (08:04)
[2020-01-09] MEDS: VANCOMYCIN 1,750 MG in SODIUM CHLORIDE 0.9% 500 ML 500 ML IVPB SCH ×2 (08:05→20:04)
[2020-01-09] MEDS: LOTEPREDNOL ETABONATE LEFT EYE SCH ×2 (08:05→20:07)
[2020-01-09] MEDS: BRIMONIDINE TARTRATE 0.2% DROPS 5 ML BTL LEFT EYE SCH ×2 (08:06→20:08)
[2020-01-09] MEDS: TIMOLOL 0.5% OPHTH DROPS 5 ML BTL LEFT EYE SCH ×2 (08:06→20:08)
[2020-01-09] MEDS: KETOROLAC 0.5% OPHTH DROPS 5 ML BTL BOTH EYES SCH ×2 (08:06→20:08)
[2020-01-09] MEDS: MUPIROCIN 2% OINT 22 GM TUBE TOPICAL SCH ×2 (08:07→20:08)
--- NOTE | 2020-01-09 10:38 | P.PN ---
Subjective Progress Note Date: 01/09/20 This is a pleasant 69-year-old female who follows regularly with Dr. You in the office. She has a known history of nonischemic cardio myopathy with prior AICD implantation, recent diagnosis of lung cancer status post chemo and radiation. She had a port placed in her chest which became infected, she was initiated on antibiotics without any improvement. For this reason she came to the hospital for further evaluation and treatment. Overall patient denies any chest discomfort in her breathing is been stable. She was seen in consultation by Dr. Salgado yesterday, she was noted to be tachycardic, remaining in sinus. Her chest x-ray did not reveal any acute abnormalities. Blood pressure this morning 146/70 with a heart rate in the 60s to 70s, 97% on room air. No laboratory data today. Troponins came back at 0.04, 0.07, 0.09. Objective - Vital Signs Vital signs: Vital Signs Temp 97.7 F 01/09/20 07:53 Pulse 68 01/09/20 08:25 Resp 20 01/09/20 07:53 BP 147/70 01/09/20 07:53 Pulse Ox 97 01/09/20 07:53 Intake & Output 01/08/20 01/09/20 01/09/20 18:59 06:59 18:59 Intake Total 240 900 Output Total 0 Balance 240 900 Weight 105.687 kg 108 kg Intake: Oral 240 900 Output: Urine 0 Stool 0 Other: Voiding Method Toilet # Voids 0 2 # Bowel Movements 0 - Exam PHYSICAL EXAMINATION: GENERAL: 69-year-old female in no acute distress at the time of my examination HEENT: Head is atraumatic, normocephalic. Pupils equal, round. Sclera anicteric. Conjunctiva are clear. Mucous membranes of the mouth are moist. Neck is supple. There is no elevated jugular venous pressure. No carotid bruit is heard. HEART EXAMINATION: S1 and S2 normal, no murmur or gallop heard CHEST EXAMINATION: Lungs are clear to auscultation and precussion. No chest wall tenderness is noted on palpation or with deep breathing. Med-a-Port site on the right side of her chest, reddened, P renal and drainage, warm to touch and tender ABDOMEN: Soft, nontender. Bowel sounds are heard. No organomegaly noted. EXTREMITIES: 2+ peripheral pulses with no evidence of peripheral edema and no calf tenderness noted. NEUROLOGIC patient is awake, alert and oriented 3 . - Labs CBC & Chem 7: 01/07/20 19:24 01/09/20 07:13 Labs: Microbiology - Last 24 Hours (Table) 01/07/20 22:42 Gram Stain - Preliminary Chest Wound Culture - Preliminary 01/07/20 19:24 Blood Culture - Preliminary Blood No Growth after 24 hours Assessment and Plan Plan: Assessment and plan #1 infected MediPort site #2 small cell lung cancer status post chemo and radiation #3 radiation pneumonitis/fibrosis #4 abnormality in troponin, likely secondary to infection, and tachycardia #5 nonischemic cardiomyopathy with prior AICD #6 hypertension Plan Continue antibiotics as per infectious disease. Echocardiogram with Doppler study remains pending. DNP note has been reviewed, I agree with a documented findings and plan of care. Patient was seen and examined.
--- NOTE | 2020-01-09 13:37 | P.PN ---
Subjective Progress Note Date: 01/09/20 CHIEF COMPLAINT: Mediport infection HISTORY OF PRESENT ILLNESS: The patient is a 69 year old female with history of lung cancer who reports developing new redness and infection of her port in the last 2 weeks. She reports barely using her port over 7 months ago. She denies routing flushes of her port. Pain along the port site significantly improved. She personally would want her port out as it is not being used. She sees a radiation oncologist and oncologist. REVIEW OF ORGAN SYSTEMS: No fevers or chills. No new chest pain. Has productive cough. PHYSICAL EXAM: VITALS: Reviewed CONSTITUTIONAL: Well developed and in no acute distress. EYES: Conjuctivae without sclera icterus. Pupils are equally round and reactive to light. Extraocular movements grossly intact. Wears glasses. HEAD, EARS, NOSE, THROAT: Moist buccal mucosa. Head is atraumatic, normocephalic. Hears conversational speech. No nasal drainage. RESPIRATORY: Non-labored respirations and equal bilateral excursions. CHEST: Erythema at port site and localized with decreased redness. CARDIOVASCULAR: Regular rate and rhythm. Extremities without moderate edema. Palpable 2+ radial pulses. ABDOMEN: Soft. Non-tender. Nondistended. MUSCULOSKELETAL: Nail and fingers with good capillary refill. SKIN: Warm and well perfused with good skin turgor. NEUROLOGIC: Cranial nerves II through XII grossly intact. Sensation upper and ex tremities intact. No focal or lateralizing signs. PSYCH: Appropriate affect. Alert and oriented to person, place and time. Displays appropriate insight. CLINCAL LABS: Reviewed. No new labs. ASSESSMENT: 1. Port infection following blood draws through port 2. Lung cancer 3. Congestive heart failure PLAN: 1. Will consult oncology for need for port removal as patient reports that it is not being used. 2. Otherwise, she is elevated risk for port removal for recent cardiac event. Objective - Vital Signs Vital signs: Vital Signs Temp 97.7 F 01/09/20 11:51 Pulse 79 01/09/20 11:51 Resp 18 01/09/20 11:51 BP 157/73 01/09/20 11:51 Pulse Ox 99 01/09/20 11:51 Intake & Output 01/08/20 01/09/20 01/09/20 18:59 06:59 18:59 Intake Total 240 900 180 Output Total 0 Balance 240 900 180 Weight 105.687 kg 108 kg Intake: Oral 240 900 180 Output: Urine 0 Stool 0 Other: Voiding Method Toilet # Voids 0 2 # Bowel Movements 0 - Labs CBC & Chem 7: 01/07/20 19:24 01/09/20 07:13 Labs: Microbiology - Last 24 Hours (Table) 01/07/20 22:42 Gram Stain - Preliminary Chest Wound Culture - Preliminary 01/07/20 19:24 Blood Culture - Preliminary Blood No Growth after 24 hours Assessment and Plan (1) Elevated troponin Current Visit: Yes Status: Acute Code(s): R77.8 - OTHER SPECIFIED ABNORMALITIES OF PLASMA PROTEINS SNOMED Code(s): 286201779 (2) Infected venous access port Current Visit: Yes Status: Acute Code(s): T80.219A - UNSP INFECTION DUE TO CENTRAL VENOUS CATHETER, INIT ENCNTR SNOMED Code(s): 156055627
--- NOTE | 2020-01-09 16:53 | P.PN ---
Subjective Progress Note Date: 01/09/20 Principal diagnosis: Possible infected Mediport site This is a very pleasant 69-year-old female patient who has a history of small cell lung cancer status post chemoradiation, congestive heart failure, hypertension, degenerative joint disease, nonischemic cardiomyopathy status post AICD placement. She had presented here to the emergency room with complaints of pain at her Mediport site. She had stated it was quite red and draining purulent material. She had been started on Levaquin for 10 days in the outpatient setting but was still having issues and discomfort. She is seen today in follow-up on the selective care unit. She is doing quite a bit better today compared to yesterday. Less pain and discomfort at the site. Blood culture reveals no growth to date. Wound culture is pending. She is currently on vancomycin, ceftriaxone, azithromycin. Her initial chest x-ray had revealed a new infiltrate in the right upper lobe with right paratracheal density compar ed to previous in June 2019. Possible cavitating infiltrate in the right upper lobe. She is maintaining O2 saturations in the high 90s on room air. She's afebrile. Objective - Vital Signs Vital signs: Vital Signs Temp 97.7 F 01/09/20 11:51 Pulse 79 01/09/20 11:51 Resp 18 01/09/20 11:51 BP 157/73 01/09/20 11:51 Pulse Ox 99 01/09/20 11:51 Intake & Output 01/08/20 01/09/20 01/09/20 18:59 06:59 18:59 Intake Total 240 900 420 Output Total 0 Balance 240 900 420 Weight 105.687 kg 108 kg Intake: Oral 240 900 420 Output: Urine 0 Stool 0 Other: Voiding Method Toilet # Voids 0 2 # Bowel Movements 0 - Exam GENERAL EXAM: Alert, pleasant 69-year-old female patient, on room air, comfortable in no apparent distress. HEAD: Normocephalic. EYES: Normal reaction of pupils, equal size. NOSE: Clear with pink turbinates. THROAT: No erythema or exudates. NECK: No masses, no JVD. CHEST: No chest wall deformity. LUNGS: Equal air entry with scattered rhonchi more so on the right lung. CVS: S1 and S2 normal with no audible murmur, regular rhythm. ABDOMEN: No hepatosplenomegaly, normal bowel sounds, no guarding or rigidity. SPINE: No scoliosis or deformity SKIN: Redness and warmth with drainage of the area around the right upper chest Mediport site CENTRAL NERVOUS SYSTEM: No focal deficits, tone is normal in all 4 extremities. EXTREMITIES: There is no peripheral edema. No clubbing, no cyanosis. Peripheral pulses are intact. - Labs CBC & Chem 7: 01/07/20 19:24 01/09/20 07:13 Labs: Microbiology - Last 24 Hours (Table) 01/07/20 22:42 Gram Stain - Preliminary Chest Wound Culture - Preliminary 01/07/20 19:24 Blood Culture - Preliminary Blood No Growth after 24 hours Assessment and Plan Assessment: 1 Infected Mediport site, cultures are pending, blood cultures are pending 2 History of small cell lung cancer status post chemo/radiation 3 Radiation pneumonitis/fibrosis with chronic cough 4 Mostly chronic changes in the right upper lobe based on computed tomography scan dated November 2019 5 History of congestive heart failure 6 History of hypertension 7 Degenerative joint disease 8 Nonischemic cardiomyopathy status post AICD placement 9 Degenerative joint disease Plan: The patient was seen and evaluated by Dr. Olivia Continue current antibiotics per ID services Stable from the pulmonary status We'll continue to follow I, the cosigning physician, performed a history & physical examination of the patient. Lungs sounds scattered rhonchi more so on the right lung. Maintaining good O2 saturations in the 90s on room air. I discussed the assessment and plan of care with my nurse practitioner, Ana Luisa Evangelista. I attest to the above note as dictated by her.
--- NOTE | 2020-01-09 20:41 | P.PN ---
Progress Note - Text Progress Note Date: 01/09/20 Chief Complaint: Chest tightness History of presenting complaint: This is a pleasant 69-year-old patient of Dr. tolliver. Chronic stable medical conditions include hypertension, osteoarthritis, varicose veins, and pacemaker for complete heart block.. 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 Treated with chemotherapy and radiation . Patient has been felt to be in remission for last few months. Patient has a port in the right upper chest which is only used occasionally for blood draw. Patient started having the pain in the same area for last few days. She did get antibiotics with family doctor for 2 weeks at slow improvement. But again. Symptoms progressed. Very painful tender and drainage of pus. She also saw Dr. Pugh. Subsequently she was sent down to the ER because the new graft pain. An pus drainage. Patient has no cough or sputum production. Patient also has noticed some pain across the chest. Which is worse with movement. No radiation. No dizziness the lightheadedness. Denies any fever and chills.. admitted with infected right chest wall port. Started onstarted IV ceftriaxone IV vancomycin. Troponin leak L to be from tachycardia infection per cardiology. Today feeling bit better. Appetite improving. Less pain. DC ceftriaxone and Zithromax. No pneumonia. Review of systems: Was done for constitutional, cardiovascular, GI, pulmonary. relevant finding as above Active Medications Acetaminophen (Acetaminophen Tab 325 Mg Tab) 650 mg PO Q6HR PRN PRN Reason: Fever and/ or Pain Last Admin: 01/09/20 20:27 Dose: 650 mg Documented by: Albuterol Sulfate (Albuterol Nebulized 2.5 Mg/3 Ml) 2.5 mg INHALATION RT-TID PRN PRN Reason: Shortness Of Breath Last Admin: 01/09/20 08:09 Dose: 2.5 mg Documented by: Aspirin (Aspirin 81 Mg) 81 mg PO DAILY [facility] Last Admin: 01/09/20 08:03 Dose: 81 mg Documented by: Brimonidine Tartrate (Brimonidine Tartrate 0.2% Drops 5 Ml Btl) 1 drops LEFT EYE BID [facility] Last Admin: 01/09/20 20:08 Dose: 1 drops Documented by: Enoxaparin Sodium (Enoxaparin 40 Mg/0.4 Ml Syringe) 40 mg SQ DAILY [facility] Last Admin: 01/09/20 08:03 Dose: 40 mg Documented by: Famotidine (Famotidine 20 Mg Tab) 40 mg PO DAILY [facility] Last Admin: 01/09/20 08:04 Dose: 40 mg Documented by: Sodium Chloride (Saline 0.9%) 1,000 mls @ 130 mls/hr IV .Q7H42M [facility] Last Admin: 01/09/20 20:04 Dose: 10 mls/hr Documented by: Ceftriaxone Sodium 1 gm/ (Sodium Chloride) 50 mls @ 100 mls/hr IVPB Q24H [facility] Last Admin: 01/08/20 21:47 Dose: 100 mls/hr Documented by: Azithromycin 500 mg/ Sodium (Chloride) 250 mls @ 250 mls/hr IVPB Q24H [facility] Last Admin: 01/08/20 22:47 Dose: 250 mls/hr Documented by: Vancomycin HCl 1,750 mg/ (Sodium Chloride) 500 mls @ 167 mls/hr IVPB Q12H [facility] Last Admin: 01/09/20 20:04 Dose: 167 mls/hr Documented by: Ipratropium Neche (Ipratropium 0.5 Mg/2.5 Ml Nebu) 0.5 mg INHALATION RT-Q6H PRN PRN Reason: Shortness Of Breath Ketorolac Tromethamine (Ketorolac 0.5% Ophth Drops 5 Ml Btl) 1 drops BOTH EYES BID [facility] Last Admin: 01/09/20 20:08 Dose: 1 drops Documented by: Lisinopril (Lisinopril 10 Mg Tab) 10 mg PO DAILY [facility] Last Admin: 01/09/20 08:04 Dose: 10 mg Documented by: Magnesium Oxide (Magnesium Oxide 400 Mg Tab) 400 mg PO DAILY [facility] Last Admin: 01/09/20 08:04 Dose: 400 mg Documented by: Metoprolol Succinate (Metoprolol Succinate (Er) 50 Mg Tab.Er.24h) 50 mg PO DAILY [facility] Last Admin: 01/09/20 08:04 Dose: 50 mg Documented by: Mupirocin (Mupirocin 2% Oint 22 Gm Tube) 1 applic TOPICAL BID [facility] Last Admin: 01/09/20 20:08 Dose: 1 applic Documented by: Naloxone HCl (Naloxone 0.4 Mg/Ml 1 Ml Vial) 0.2 mg IV Q2M PRN PRN Reason: Opioid Reversal Naproxen (Naproxen 250 Mg Tab) 250 mg PO TID PRN PRN Reason: Moderate Pain Last Admin: 01/09/20 13:46 Dose: 250 mg Documented by: Patient's Own ( Loteprednol Etabonate [Inveltys] 2.8 Ml Drops.Susp) 1 drop LEFT EYE BID [facility] Last Admin: 01/09/20 20:07 Dose: 1 drop Documented by: Spironolactone (Spironolactone 25 Mg Tab) 12.5 mg PO DAILY [facility] Last Admin: 01/09/20 08:04 Dose: 12.5 mg Documented by: Timolol Maleate (Timolol 0.5% Ophth Drops 5 Ml Btl) 1 drops LEFT EYE BID [facility] Last Admin: 01/09/20 20:08 Dose: 1 drops Documented by: Physical examination: VITAL SIGNS: 97.7, 79, 18, 157 with 73, 99% room air GENERAL: up in a chair, but more peppy EYES: Pupils equal. Conjunctiva pale NECK: JVD not raised; masses not palpable. HEART: First and second heart sounds are normal; no edema. LUNGS: Respiratory rate normal, decreased breath sounds. ABDOMEN: Soft, nontender, liver spleen not palpable, no masses palpable. PSYCH: Alert and oriented x3; mood and affect normal. CHEST wall: Port right infraclavicular medullary tenderness around the same. Local redness MUSCULOSKELETAL: Evidence of OA especially in the hands INVESTIGATIONS, reviewed in the clinical context: White count 6.1 hemoglobin 11.4 platelets 360 potassium 4.5 creatinine 0.9 Troponin I 0.043, 0.077, 0.097 EKG tracing-personally reviewed by me- paced rhythm Chest x-ray film personally reviewed by me-infiltrate right upper lobe, mediastinum to the right some stenting of the right diaphragm Computed tomography scan of the chest from December 22-shows radiation scarring in the right upper lobe and contraction Assessment: -Infected port in the right upper chest wall having failed outpatient treatment. Patient has been draining pus from the same. -troponin leak felt to be from underlying tachycardia and infection per cardiology- -COPD in an ex-smoker -small cell lung cancer status post chemotherapy and radiation -Radiation pneumonitis/fibrosis right upper lung with contraction and mediastinal shift -Essential hypertension -Pacemaker for complete heart block -Primary osteoarthritis -Bilateral lower extremity varicose veins -Obesity BMI 36.5 -Radiation esophagitis improved Plan: continuevancomycin. Wound cultures -pending. Patient has no clinical evidence of pneumonia. discussed with the patient.
[2020-01-10] MEDS: METOPROLOL SUCCINATE (ER) 50 MG TAB.ER.24H PO SCH ×3 (00:22→20:07)
[2020-01-10] MEDS: NAPROXEN 250 MG TAB PO PRN ×2 (02:05→22:42)
[2020-01-10 02:14] LABS: Appearance,Urine Clear (Clear); Bilirubin,Urine Negative (Negative); Blood,Urine Negative (Negative); Color,Urine Light Yellow; Glucose,Urine (UA) Negative (Negative); Ketones,Urine Negative (Negative); Leukocyte Esterase,Urine Negative (Negative); Nitrite,Urine Negative (Negative); PH, Urine 5.5 (5.0-8.0); Protein,Urine Negative (Negative); Specific Gravity,Urine 1.011 (1.001-1.035); Urobilinogen,Urine <2.0 mg/dL (<2.0)
--- NOTE | 2020-01-10 03:16 | PN ---
PROGRESS NOTE DATE OF SERVICE: 01/09/2020 REASON FOR FOLLOWUP: Mediport site infection. INTERVAL HISTORY: The patient is currently afebrile. The patient is feeling better. Breathing comfortably. The patient denies having any chest pain. She did have a cough which was initially productive, but not bringing up any sputum anymore. No nausea, no vomiting. No abdominal pain. No diarrhea. Did mention overall pain discomfort to the Mediport site has decreased in intensity. PHYSICAL EXAMINATION: Blood pressure is 159/79 with a pulse of 88, temperature 98.4. She is 97% on room air. General description is an elderly female up in the chair in no distress. RESPIRATORY SYSTEM: Unlabored breathing, decreased breath sounds at the bases. No wheeze. HEART: S1, S2. Regular rate and rhythm. ABDOMEN: Soft, no tenderness. EXTREMITIES: No edema of feet. The Mediport site still has some erythema, though decreased in intensity. LABS: Hemoglobin 11.4, white count 6.1 BUN of 22, creatinine 0.90. Blood and Mediport site culture so far pending. DIAGNOSTIC IMPRESSION AND PLAN: Patient with Mediport site infection started after blood draw 3 weeks ago in this patient currently do not have any need for the Mediport with possible removal tomorrow. Patient is covered with vancomycin and Rocephin to continue. Adjusting antibiotic further based on culture report. Continue supportive care. MMODL / IJN: [id number] /
[2020-01-10] MEDS: SODIUM CHLORIDE 0.9% 1,000 ML IV SCH ×2 (05:04→16:00)
--- NOTE | 2020-01-10 06:15 | XR ---
EXAM: XR Chest, 1 View CLINICAL HISTORY: fluid overload TECHNIQUE: Frontal view of the chest. COMPARISON: 01/07/2020. FINDINGS/IMPRESSION: Left basilar atelectasis and/or infiltrates, more conspicuous on this study than the prior. No other significant interval change. PA and lateral views of the chest may be obtained for further evaluation.
[2020-01-10] MEDS ORDERED: FUROSEMIDE 10 MG/ML 4 ML VIAL IV STA (06:36)
[2020-01-10] MEDS: ASPIRIN 81 MG PO SCH (07:04)
[2020-01-10] MEDS: FAMOTIDINE 20 MG TAB PO SCH (07:04)
[2020-01-10] MEDS: SPIRONOLACTONE 25 MG TAB PO SCH (07:04)
[2020-01-10] MEDS: MAGNESIUM OXIDE 400 MG TAB PO SCH (07:05)
[2020-01-10] MEDS: lisinopriL 10 MG TAB PO SCH ×2 (07:05→20:08)
[2020-01-10 08:25] LABS: HCT 35.6 % (34.0-46.0); HGB 11.3 gm/dL (11.4-16.0); MCH 32.9 pg (25.0-35.0); MCHC 31.6 g/dL (31.0-37.0); MCV 104.1 fL (80.0-100.0); Macrocytosis Moderate; Mean Platelet Volume 6.8; Platelet Count 317 k/uL (150-450); RBC 3.42 m/uL (3.80-5.40); RDW 15.1 % (11.5-15.5); WBC 5.1 k/uL (3.8-10.6)
[2020-01-10 08:41] LABS: African American GFR (CKD) >90 (>60 ml/min/1.73 sqM); Anion Gap 10 mmol/L; Blood Urea Nitrogen 13 mg/dL (7-17); Calcium 9.2 mg/dL (8.4-10.2); Carbon Dioxide 22 mmol/L (22-30); Chloride 105 mmol/L (98-107); Glucose 102 mg/dL (74-99); Non-African American GFR(CKD) 81 (>60 ml/min/1.73 sqM); Potassium 4.3 mmol/L (3.5-5.1); Sodium 137 mmol/L (137-145)
[2020-01-10] MEDS ORDERED: lisinopriL 10 MG TAB PO STA (08:55)
[2020-01-10] MEDS: VANCOMYCIN 1,750 MG in SODIUM CHLORIDE 0.9% 500 ML 500 ML IVPB SCH ×2 (08:57→13:46)
[2020-01-10] MEDS: BRIMONIDINE TARTRATE 0.2% DROPS 5 ML BTL LEFT EYE SCH ×2 (09:00→20:09)
[2020-01-10] MEDS: TIMOLOL 0.5% OPHTH DROPS 5 ML BTL LEFT EYE SCH ×2 (09:00→20:09)
[2020-01-10] MEDS: KETOROLAC 0.5% OPHTH DROPS 5 ML BTL BOTH EYES SCH ×2 (09:00→20:09)
[2020-01-10] MEDS: MUPIROCIN 2% OINT 22 GM TUBE TOPICAL SCH ×2 (09:01→20:14)
[2020-01-10] MEDS: LOTEPREDNOL ETABONATE LEFT EYE SCH ×2 (09:02→20:08)
--- NOTE | 2020-01-10 10:25 | P.HPADDEND ---
H&P Addendum H&P Addendum Date: 01/10/20 Discussed with cardiology, patient clear for port removal for infection.
--- NOTE | 2020-01-10 10:51 | ECHOF ---
Referral Reason:abnormal troponin MEASUREMENTS -------- HEIGHT: 170.2 cm WEIGHT: 109.3 kg BP: 195/86 IVSd: 1.3 cm (0.6 - 1.1) LVIDd: 4.2 cm (3.9 - 5.3) LVPWd: 1.2 cm (0.6 - 1.1) IVSs: 2.0 cm LVIDs: 3.3 cm LVPWs: 1.5 cm LAESV Index (A-L): 20.76 ml/m Ao Diam: 2.8 cm (2.0 - 3.7) AV Cusp: 1.5 cm (1.5 - 2.6) MV E Star: 1.04 m/s MV DecT: 237 ms MV A Star: 1.32 m/s MV E/A Ratio: 0.79 FINDINGS -------- Paced rhythm. This was a technically difficult study with suboptimal views. The left ventricular size is normal. There is mild concentric left ventricular hypertrophy. Overa ll left ventricular systolic function is mild-moderately impaired with, an EF between 40 - 45 %. Se ptal wall motion is delayed, and consistent with ventricular pacing. The right ventricle is normal in size. Normal LA size by volume 22+/-6 ml/m2. The right atrium was not well visualized. 5.0mg of Lumason was utilized for enhancement of images Interatrial and interventricular septum intact. The aortic valve was not well visualized. There is no evidence of aortic regurgitation. There is no evidence of aortic stenosis. Mild mitral annular calcification present. No mitral regurgitation. Mild tricuspid regurgitation present. There is no evidence of pulmonary hypertension. The right v entricular systolic pressure, as measured by Doppler, is {RVSP}. There is no pulmonic regurgitation present. The aortic root size is normal. IVC Not well visulized. There is a trivial pericardial effusion present. CONCLUSIONS -------- 1. The left ventricular size is normal. 2. There is mild concentric left ventricular hypertrophy. 3. Overall left ventricular systolic function is mild-moderately impaired with, an EF between 40 - 45 %. 4. Septal wall motion is delayed, and consistent with ventricular pacing. 5. Mild mitral annular calcification present. 6. Mild tricuspid regurgitation present. MARKETING PROJECT MANAGER: Radha Benites [facility]
--- NOTE | 2020-01-10 12:10 | P.PN ---
Subjective Progress Note Date: 01/10/20 HISTORY OF PRESENT ILLNESS: Patient examined this morning at the bedside. Patient developed some respiratory distress this morning. An A-Team was called. She received a dose of IV Lasix. Chest x-ray performed revealed left basilar atelectasis and/or infiltrates. Patient states her breathing has improved at the time of examination. Echocardiogram completed revealed ejection fraction between 40 and 45% with mild tricuspid regurgitation. PHYSICAL EXAM: VITAL SIGNS: Reviewed. GENERAL: Well-developed in no acute distress. NECK: Supple. No JVD or thyromegaly LUNGS: Respirations even and unlabored. Lungs diminished. HEART: Regular rate and rhythm. S1 and S2 heard. EXTREMITIES: Normal range of motion. No clubbing or cyanosis. Peripheral pulses intact. Trace bilateral lower extremity edema ASSESSMENT: Infected Mediport Respiratory distress, possible acute exacerbation of systolic congestive heart failure, EF 40-45% Small cell lung cancer, status post chemoradiation Abnormal troponins, likely secondary to infectious process Nonischemic cardiomyopathy with previous AICD Hypertension COPD Radiation pneumonitis PLAN: Patient received a dose of IV lasix this morning. No need for further lasix at this time. Continue aldactone. We will continue to monitor for signs of fluid overload. Increase lisinopril to 10 mg twice a day for optimal blood pressure control Patient is scheduled for removal of Mediport today with Dr. Sandy. There are no absolute contraindications for patient to undergo procedure. Recommend cautious fluid administration. Nurse practitioner note has been reviewed by physician. Signing provider agrees with the documented findings, assessment, and plan of care. Objective - Vital Signs Vital signs: Vital Signs Temp 98 F 01/10/20 08:55 Pulse 59 L 01/10/20 08:55 Resp 18 01/10/20 08:55 BP 161/90 01/10/20 08:55 Pulse Ox 98 01/10/20 08:55 Intake & Output 01/09/20 01/10/20 01/10/20 18:59 06:59 18:59 Intake Total 1270 Output Total 0 0 Balance 1270 0 Weight 109.5 kg Intake: Intake, IV Titration 500 Amount Vancomycin 1,750 mg In 500 Sodium Chloride 0.9% 500 ml 500 ml @ 167 mls/hr IVPB Q12H [facility] Rx#: [id number] Oral 770 Output: Urine 0 Stool 0 0 Other: Voiding Method Toilet # Voids 2 1 # Bowel Movements 0 - Labs CBC & Chem 7: 01/10/20 07:51 01/10/20 07:51 Labs: Abnormal Lab Results - Last 24 Hours (Table) 01/10/20 01/10/20 Range/Units 07:51 07:51 RBC 3.42 L (3.80-5.40) m/uL Hgb 11.3 L (11.4-16.0) gm/dL MCV 104.1 H (80.0-100.0) fL Glucose 102 H (74-99) mg/dL Microbiology - Last 24 Hours (Table) 01/07/20 22:42 Gram Stain - Final Chest Wound Culture - Final 01/07/20 19:24 Blood Culture - Preliminary Blood No Growth after 48 hours
[2020-01-10] MEDS: ENOXAPARIN 40 MG/0.4 ML SYRINGE SQ SCH (12:24)
[2020-01-10] MEDS ORDERED: LIDOCAINE 1% (10MG/ML) FOR IV START INTRADERMA ONE (13:00)
[2020-01-10] MEDS ORDERED: LACTATED RINGERS 1,000 ML IV ONE (13:00)
[2020-01-10] MEDS ORDERED: PROPOFOL 10 MG/ML 20 ML VIAL IV ONE (13:25)
[2020-01-10] MEDS ORDERED: MIDAZOLAM 2 MG/2 ML VIAL ONE (13:25)
[2020-01-10] MEDS ORDERED: LIDOCAINE 1% INJ 10MG/ML (20 ML MDV) ONE (13:25)
[2020-01-10] MEDS ORDERED: PHENYLEPHRINE-0.9% NACL SYG 1 MG/10 ML SYRINGE ONE (13:25)
[2020-01-10] MEDS ORDERED: fentaNYL (PF) 50 MCG/ML 2 ML AMP ONE (13:25)
[2020-01-10] MEDS ORDERED: BUPIVACAINE (PF) 0.25% 30 ML VIAL SQ ONE (13:51)
--- NOTE | 2020-01-10 14:13 | P.OP ---
Date of Procedure: 01/10/20 Description of Procedure: SURGEON: NISHI DANIELLE MD SYSTEMS INTEGRATION MANAGER: None. PREOPERATIVE DIAGNOSIS: 1. Port-A-Cath infection 2. Chemotherapeutic venous access 3. Lung cancer POSTOPERATIVE DIAGNOSIS: 1. Port-A-Cath infection 2. Chemotherapeutic venous access 3. Lung cancer OPERATION: 1. Removal of right internal jugular vein Port-A-Cath. 2. Application of PREVENA incisional wound VAC, 13-cm ANESTHESIA: MAC with 30 mL local ESTIMATED BLOOD LOSS: 1 mL SPECIMENS REMOVED: Port-A-Cath COMPLICATIONS: None. FINDINGS: 1. Port site infection with skin defect excised INDICATIONS: The patient is a 69-year-old female who presented with right Port-A-Cath infection following attempted blood draw access from report 2 weeks ago. Port-A-Cath removal advised and confirmed with her oncologist. Benefits and risks were described. Informed consent was obtained. DESCRIPTION OF PROCEDURE: Patient was brought to the operating room, laid in supine position. After IV sedation the chest wall on the left side was prepped and draped in standard sterile fashion. Prior to incision, a timeout protocol was confirmed with surgical team regarding the patient's name including procedures to be performed. She was on scheduled antibiotics. DVT prophylaxis was confirmed with sequential compressive devices. Attention was brought to the area of the port site, whereby a total of 30 mL of local was infiltrated into the skin for a field block. A #15 blade was used to incise along the previous cicatrix. Electro- Bovie cautery was used to control for hemostasis. Adhesions were lysed around the Mediport. The port was extracted without sequelae. Pressure for 2 minutes was placed along the internal jugular vein. A hole was identified along the skin consistent with site infection and the skin was excised , 3 cm x 2 mm. Hemostasis was checked along the pocket of the Port-A-Cath site. The wound was closed in layers using 3-0 Vicryl for the deep subcutaneous. Incisional wound VAC PREVENA 13-cm was placed. At the end of the procedure needle, sponge and instrument counts were verified correct by the medical surgical tech. The patient had tolerated the procedure well and was taken to postanesthesia care in stable condition.
[2020-01-10] MEDS ORDERED: HYDROmorphone 0.5 MG/0.5 ML SYRINGE IVP ONE (14:32)
--- NOTE | 2020-01-10 16:59 | P.CONS ---
History of Present Illness - Reason for Consult Consult date: 01/10/20 port removal Requesting physician: Rae Sandy - Chief Complaint non-healing port insertion site - History of Present Illness Mrs. Marin is a very pleasant female patient of Dr. Pugh who was initially seen at [facility] in consult 03/29/19. Patient presented 2 weeks increased shortness of breath, orthopnea and difficulty in breathing when she laid on her left side. C/O RUE pain and swelling, prominent veins were noted in the neck and chest with facial congestion. Chest x-ray was abnormal, leading to a CT chest, right paratracheal mass measuring 9.6 x 8.4 x 7 cm. Pulmonary medicine performed Rodarte needle biopsy of the paratracheal mass . CT of the brain with contrast was negative. Doppler of the right upper extremity was negative for DVT. Biopsy positive for small cell. Staging PET scan showed a right upper lobe mass extending from the level of the superior mediastinum into the right lung with encasement of the pulmonary vasculature. There was associated hypermetabolic uptake with a small right pleural effusion, no distant metastases seen. Thoracentesis 04/19/19 was negative. Patient was started on definitive treatment with carbo/RADIOLOGIST-16 05/05/19. She had a delay with cycle 3, Admitted after her final cycle 4 with neutropenia and esophagitis, last radiation was 05/10/19. She was seen in the office 12/28/19 for complaints of irritation at the port. She said it was irritated since just before her CAT scan 12/16. The redness persisted, progressive tenderness, warm to the touch. She had prescribed anti biotics by PCP with no improvement. She was started on a different course of antibiotics but, the epidermal excoriation persisted and has progressed. A lot of the redness and the warmth has diminished. Patient did have a positive report on her recent scans, no evidence of disease at this time. Recommendation was to have the port removed. Patient is denying fevers, chills, new or unusual respiratory symptoms, she feels well other than the port. 10 point review of systems is negative. Review of Systems 14 point review of systems is negative Past Medical History Past Medical History: Cancer, Heart Failure, Hypertension, Osteoarthritis (OA), Pneumonia, Syncope Additional Past Medical History / Comment(s): P malignant HTN with pulmonary vascular congestion/R upper lung mass. Completed chemo and radiation. 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 History of Any Multi-Drug Resistant Organisms: None Reported Past Surgical History: Pacemaker Additional Past Surgical History / Comment(s): 2013 BiV AICD/generator change 2013 cardiac cath Past Anesthesia/Blood Transfusion Reactions: No Reported Reaction Additional Past Anesthesia/Blood Transfusion Reaction / Comm: Pt hsa never had general or spinal anesthesia. Type of Cardiac Device: Biventricular Pacemaker, AICD Device Placement Date:: 2013 Past Psychological History: No Psychological Hx Reported Additional Psychological History / Comment(s): Pt resides alone. She is independent. Smoking Status: Former smoker Past Alcohol Use History: None Reported Additional Past Alcohol Use History / Comment(s): Pt started smoking in 1964 and quit in 2012. Past Drug Use History: None Reported - Past Family History Brother(s) Family Medical History: Cancer Additional Family Medical History / Comment(s): pancreatic cancer Father Family Medical History: CVA/TIA, Hypertension Additional Family Medical History / Comment(s): third degree block, stroke Mother Family Medical History: Hypertension Medications and Allergies Home Medications Medication Instructions Recorded Confirmed Type Aspirin 81 mg PO DAILY 07/27/13 01/07/20 History Spironolactone [Aldactone] 12.5 mg PO DAILY 07/27/13 01/07/20 History Magnesium Chloride [Mag64] 64 mg PO DAILY 03/19/19 01/07/20 History Metoprolol Succinate (ER) [Toprol 50 mg PO DAILY 03/19/19 01/07/20 History XL] lisinopriL [Zestril] 10 mg PO DAILY 03/19/19 01/07/20 History Albuterol Nebulized [Ventolin 2.5 mg INHALATION RT-TID PRN 07/24/19 01/07/20 History Nebulized] Cholecalciferol [Vitamin D3 (25 2,000 unit PO DAILY 07/24/19 01/07/20 History Mcg = 1000 Iu)] Brimonidine Tartrate/Timolol 1 drop LEFT EYE BID 01/07/20 01/07/20 History [Combigan 0.2%-0.5% Eye Drops] Famotidine 40 mg PO DAILY 01/07/20 01/07/20 History Ipratropium Nebulized [Atrovent 0.5 mg INHALATION RT-Q6H PRN 01/07/20 01/07/20 History Nebulized 0.2 MG/ML] Ketorolac 0.5% Ophth Soln [Acular] 1 drops BOTH EYES BID 01/07/20 01/07/20 History Levofloxacin [Levaquin] 750 mg PO DAILY 01/07/20 01/07/20 History Loteprednol Etabonate [Inveltys] 1 drop LEFT EYE BID 01/07/20 01/07/20 History Mupirocin 2% Oint [Bactroban 2% 1 applic TOPICAL BID 01/07/20 01/07/20 History Oint] Allergies Allergy/AdvReac Type Severity Reaction Status Date / Time losartan [Losartan] Allergy Severe Rash/Hives Verified 01/07/20 20:52 Penicillins Allergy Severe Rash/Hives Verified 01/07/20 20:52 cortisone [Cortisone] AdvReac Severe flushed Verified 01/07/20 20:52 skin, depression Tetanus Vaccines and Toxoid AdvReac Severe huge Verified 01/07/20 20:52 [Tetanus Vaccines & Toxoid] localized swelling Physical Exam Vitals: Vital Signs Temp Pulse Resp BP BP Pulse Ox 01/10/20 06:41 195/86 01/10/20 04:00 97.7 F 78 18 110/62 100 01/10/20 00:00 97.4 F L 80 18 180/84 194/86 94 L 01/09/20 20:00 97.2 F L 77 18 172/77 98 01/09/20 16:00 98.4 F 88 16 159/79 97 01/09/20 11:51 97.7 F 79 18 157/73 99 Intake and Output 01/09/20 01/10/20 01/10/20 22:59 06:59 14:59 Output Total 0 0 Balance 0 0 Output: Urine 0 Stool 0 0 Other: Voiding Method Toilet Toilet # Voids 1 1 # Bowel Movements 0 Weight 109.5 kg - Constitutional General appearance: cooperative, no acute distress, obese - EENT Eyes: anicteric sclerae, edentulous ENT: hearing grossly normal, normal oropharynx - Neck Neck: no lymphadenopathy - Respiratory Respiratory: bilateral: CTA, diminished - Cardiovascular Rhythm: regular Heart sounds: normal: S1, S2 leg Peripheral Edema: bilateral: Trace (improved) - Gastrointestinal General gastrointestinal: no absent bowel sounds, no decreased bowel sounds, no distended, no hepatomegaly, no hyperactive bowel sounds, normal bowel sounds, no organomegaly, no rigid, no scaphoid, soft, no splenomegaly, no tenderness, no umbilical hernia, no ventral hernia - Integumentary Right chest wall port insertion site less red than when seen in office last week. Patient has had 2 courses of antibiotics. There is a half a centimeter area of infected looking tissue - Neurologic Neurologic: CNII-XII intact - Musculoskeletal Musculoskeletal: strength equal bilaterally - Psychiatric Psychiatric: A&O x's 3, appropriate affect, intact judgment & insight Results CBC & Chem 7: 01/10/20 07:51 01/10/20 07:51 Labs: Abnormal Lab Results - Last 24 Hours (Table) 01/10/20 01/10/20 Range/Units 07:51 07:51 RBC 3.42 L (3.80-5.40) m/uL Hgb 11.3 L (11.4-16.0) gm/dL MCV 104.1 H (80.0-100.0) fL Glucose 102 H (74-99) mg/dL Microbiology - Last 24 Hours (Table) 01/07/20 19:24 Blood Culture - Preliminary Blood No Growth after 48 hours 01/07/20 22:42 Gram Stain - Preliminary Chest Wound Culture - Preliminary Comments: echo report reviewed Assessment and Plan (1) Infected venous access port Narrative/Plan: From an Oncology standpoint okay to have port removed. Currently patient is not on any active treatment. Her most recent scan was very positive, no evidence of disease or recurrence. Current Visit: Yes Status: Acute Priority: Medium Code(s): T80.219A - UNSP INFECTION DUE TO CENTRAL VENOUS CATHETER, INIT ENCNTR SNOMED Code(s): 360728661 (2) Small cell lung cancer Narrative/Plan: Treatment follow-up CT scan done at the end of November showed no evidence of recurrence. She will continue on every 3 month follow-up at this time. No current therapy Current Visit: Yes Status: Chronic Priority: Medium Code(s): C34.90 - MALIGNANT NEOPLASM OF UNSP PART OF UNSP BRONCHUS OR LUNG SNOMED Code(s): 33345 2000 Plan: Doctor attests: I performed a history and physical examination of this patient, developed impression and plan of care, discussed with dictator. I agree with dictators note, documented as a scribe.
--- NOTE | 2020-01-10 17:49 | P.PN ---
Subjective Progress Note Date: 01/10/20 On today's evaluation of 01/10/2020 the patient is doing well. The patient is on broad-spectrum antibiotics and IV vancomycin. Cultures are still pending for now. The patient is scheduled to undergo removal of a Mediport by general surgery. Noted this port was inserted for treatment of small cell lung cancer and subsequently got infected and the patient was being treated on outpatient basis with Levaquin. Noted the patient has small cell lung cancer addition to hypertension and congestion heart failure and the patient has nonischemic artery myopathy and the patient has an AICD in place. Blood cultures still negative for now. The white cell count is not elevated. There is some minimal troponin leak. UA is negative. Objective - Vital Signs Vital signs: Vital Signs Temp 97.6 F 01/10/20 15:50 Pulse 73 01/10/20 17:35 Resp 16 01/10/20 17:35 BP 117/55 01/10/20 17:35 Pulse Ox 96 01/10/20 17:35 Intake & Output 01/09/20 01/10/20 01/10/20 18:59 06:59 18:59 Intake Total 1270 1300 Output Total 0 0 1601 Balance 1270 0 -301 Weight 109.5 kg Intake: IV 800 Intake, IV Titration 500 500 Amount Vancomycin 1,750 mg In 500 500 Sodium Chloride 0.9% 500 ml 500 ml @ 167 mls/hr IVPB Q12H [facility] Rx#: [id number] Oral 770 Output: Urine 0 1600 Stool 0 0 0 Estimated Blood Loss 1 Other: Voiding Method Toilet Toilet # Voids 2 1 # Bowel Movements 0 1 - Exam GENERAL EXAM: Alert, pleasant 69-year-old female patient, on room air, comfortable in no apparent distress. HEAD: Normocephalic. EYES: Normal reaction of pupils, equal size. NOSE: Clear with pink turbinates. THROAT: No erythema or exudates. NECK: No masses, no JVD. CHEST: No chest wall deformity. LUNGS: Equal air entry with scattered rhonchi more so on the right lung. CVS: S1 and S2 normal with no audible murmur, regular rhythm. ABDOMEN: No hepatosplenomegaly, normal bowel sounds, no guarding or rigidity. SPINE: No scoliosis or deformity SKIN: Redness and warmth with drainage of the area around the right upper chest Mediport site CENTRAL NERVOUS SYSTEM: No focal deficits, tone is normal in all 4 extremities. EXTREMITIES: There is no peripheral edema. No clubbing, no cyanosis. Peripheral pulses are intact. - Labs CBC & Chem 7: 01/10/20 07:51 01/10/20 07:51 Labs: Abnormal Lab Results - Last 24 Hours (Table) 01/10/20 01/10/20 Range/Units 07:51 07:51 RBC 3.42 L (3.80-5.40) m/uL Hgb 11.3 L (11.4-16.0) gm/dL MCV 104.1 H (80.0-100.0) fL Glucose 102 H (74-99) mg/dL Microbiology - Last 24 Hours (Table) 01/07/20 22:42 Gram Stain - Final Chest Wound Culture - Final 01/07/20 19:24 Blood Culture - Preliminary Blood No Growth after 48 hours Assessment and Plan Plan: 1 Infected Mediport site, cultures are pending, blood cultures are pending, and the patient on broad-spectrum antibiotics and the patient is hemodynamically stable on no pressors. 2 History of small cell lung cancer status post chemo/radiation 3 Radiation pneumonitis/fibrosis with chronic cough 4 Mostly chronic changes in the right upper lobe based on computed tomography scan dated November 2019 5 History of congestive heart failure 6 History of hypertension 7 Degenerative joint disease 8 Nonischemic cardiomyopathy status post AICD placement 9 Degenerative joint disease Plan Removal of the Mediport today Hemodynamically stable Awaiting final cultures Continue vancomycin We'll continue to follow
[2020-01-10] MEDS: ACETAMINOPHEN TAB 325 MG TAB PO PRN (18:55)
--- NOTE | 2020-01-10 21:47 | PN ---
PROGRESS NOTE DATE OF SERVICE: 01/10/2020 REASON FOR FOLLOW UP: MediPort site infection. INTERVAL HISTORY: The patient is currently afebrile. The patient was taken to the OR. The patient is status post removal of the port. The patient tolerated the procedure. Denies any chest pain. Minimal cough. No nausea. No abdominal pain or diarrhea. PHYSICAL EXAMINATION: Blood pressure 113/55 with a pulse of 73, temperature 97.6. She is 96% on room air. General description is an elderly female up in the chair in no distress. Respiratory system: Unlabored breathing, clear to auscultation anteriorly. Heart S1, S2. Regular rate and rhythm. Abdomen soft, no tenderness. LABS: Hemoglobin 11.1, white count of 5.1, creatinine 0.75. Blood cultures, local wound culture has been negative. DIAGNOSTIC IMPRESSION AND PLAN: Patient with Mediport site cellulitis in this patient who is status post removal of the same. The patient was not bacteremic. Local culture negative. We will keep the patient on vancomycin empirically while inpatient. However can be discontinued on discharge. Continue supportive care. MMODL / IJN: [id number] /
--- NOTE | 2020-01-10 22:08 | P.PN ---
Progress Note - Text Progress Note Date: 01/10/20 Chief Complaint: Chest tightness History of presenting complaint: This is a pleasant 69-year-old patient of Dr. tolliver. Chronic stable medical conditions include hypertension, osteoarthritis, varicose veins, and pacemaker for complete heart block.. 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 Treated with chemotherapy and radiation . Patient has been felt to be in remission for last few months. Patient has a port in the right upper chest which is only used occasionally for blood draw. Patient started having the pain in the same area for last few days. She did get antibiotics with family doctor for 2 weeks at slow improvement. But again. Symptoms progressed. Very painful tender and drainage of pus. She also saw Dr. Pugh. Subsequently she was sent down to the ER because the new graft pain. An pus drainage. Patient has no cough or sputum production. Patient also has noticed some pain across the chest. Which is worse with movement. No radiation. No dizziness the lightheadedness. Denies any fever and chills.. admitted with infected right chest wall port. Started onstarted IV ceftriaxone IV vancomycin. Troponin leak L to be from tachycardia infection per cardiology. Today -patient earlier today had removal office infected port. Has a local wound VAC in place. Pain controlled. No new symptoms. Review of systems: Was done for constitutional, cardiovascular, GI, pulmonary. relevant finding as above Active Medications Acetaminophen (Acetaminophen Tab 325 Mg Tab) 650 mg PO Q6HR PRN PRN Reason: Fever and/ or Pain Last Admin: 01/10/20 18:55 Dose: 650 mg Documented by: Albuterol Sulfate (Albuterol Nebulized 2.5 Mg/3 Ml) 2.5 mg INHALATION RT-TID PRN PRN Reason: Shortness Of Breath Last Admin: 01/09/20 08:09 Dose: 2.5 mg Documented by: Aspirin (Aspirin 81 Mg) 81 mg PO DAILY [facility] Last Admin: 01/10/20 07:04 Dose: 81 mg Documented by: Brimonidine Tartrate (Brimonidine Tartrate 0.2% Drops 5 Ml Btl) 1 drops LEFT EYE BID [facility] Last Admin: 01/10/20 20:09 Dose: 1 drops Documented by: Enoxaparin Sodium (Enoxaparin 40 Mg/0.4 Ml Syringe) 40 mg SQ DAILY [facility] Last Admin: 01/10/20 12:24 Dose: Not Given Documented by: Famotidine (Famotidine 20 Mg Tab) 40 mg PO DAILY [facility] Last Admin: 01/10/20 07:04 Dose: 40 mg Documented by: Sodium Chloride (Saline 0.9%) 1,000 mls @ 20 mls/hr IV .Q24H [facility] Last Admin: 01/10/20 16:00 Dose: Not Given Documented by: Vancomycin HCl 1,750 mg/ (Sodium Chloride) 500 mls @ 167 mls/hr IVPB Q12H [facility] Last Admin: 01/10/20 13:46 Dose: 500 mls Documented by: Ipratropium Burton (Ipratropium 0.5 Mg/2.5 Ml Nebu) 0.5 mg INHALATION RT-Q6H PRN PRN Reason: Shortness Of Breath Ketorolac Tromethamine (Ketorolac 0.5% Ophth Drops 5 Ml Btl) 1 drops BOTH EYES BID [facility] Last Admin: 01/10/20 20:09 Dose: 1 drops Documented by: Lisinopril (Lisinopril 10 Mg Tab) 10 mg PO BID [facility] Last Admin: 01/10/20 20:08 Dose: 10 mg Documented by: Magnesium Oxide (Magnesium Oxide 400 Mg Tab) 400 mg PO DAILY [facility] Last Admin: 01/10/20 07:05 Dose: 400 mg Documented by: Metoprolol Succinate (Metoprolol Succinate (Er) 50 Mg Tab.Er.24h) 50 mg PO BID [facility] Last Admin: 01/10/20 20:07 Dose: 50 mg Documented by: Miscellaneous Information (Vancomycin Trough Due 1 Each Misc) 0 each MISCELLANE DIRECTED ONE Stop: 01/11/20 07:01 Mupirocin (Mupirocin 2% Oint 22 Gm Tube) 1 applic TOPICAL BID [facility] Last Admin: 01/10/20 20:14 Dose: Not Given Documented by: Naloxone HCl (Naloxone 0.4 Mg/Ml 1 Ml Vial) 0.2 mg IV Q2M PRN PRN Reason: Opioid Reversal Naproxen (Naproxen 250 Mg Tab) 250 mg PO TID PRN PRN Reason: Moderate Pain Last Admin: 01/10/20 02:05 Dose: 250 mg Documented by: Patient's Own ( Loteprednol Etabonate [Inveltys] 2.8 Ml Drops.Susp) 1 drop LEFT EYE BID [facility] Last Admin: 01/10/20 20:08 Dose: 1 drop Documented by: Spironolactone (Spironolactone 25 Mg Tab) 12.5 mg PO DAILY [facility] Last Admin: 01/10/20 07:04 Dose: 12.5 mg Documented by: Timolol Maleate (Timolol 0.5% Ophth Drops 5 Ml Btl) 1 drops LEFT EYE BID [facility] Last Admin: 01/10/20 20:09 Dose: 1 drops Documented by: Physical examination: VITAL SIGNS: 97.6, 64, 16, 117/55, 96% room air GENERAL: Laying in bed, comfortable EYES: Pupils equal. Conjunctiva pale NECK: JVD not raised; masses not palpable. HEART: First and second heart sounds are normal; no edema. CHEST wall: Wound VAC over the right upper chest wall LUNGS: Respiratory rate normal, decreased breath sounds. ABDOMEN: Soft, nontender, liver spleen not palpable, no masses palpable. PSYCH: Alert and oriented x3; mood and affect normal. MUSCULOSKELETAL: Evidence of OA especially in the hands INVESTIGATIONS, reviewed in the clinical context: White count 5.1 hemoglobin 11.3 potassium 4.3 creatinine 0.75 White count 6.1 hemoglobin 11.4 platelets 360 potassium 4.5 creatinine 0.9 Troponin I 0.043, 0.077, 0.097 EKG tracing-personally reviewed by me- paced rhythm Chest x-ray film personally reviewed by me-infiltrate right upper lobe, mediastinum to the right some stenting of the right diaphragm Computed tomography scan of the chest from December 22-shows radiation scarring in the right upper lobe and contraction Assessment: -Infected port in the right upper chest wall having failed outpatient treatment. Patient has been draining pus from the same.-Removed today on January 09 -troponin leak felt to be from underlying tachycardia and infection per cardiology- -COPD in an ex-smoker -small cell lung cancer status post chemotherapy and radiation -Radiation pneumonitis/fibrosis right upper lung with contraction and mediastinal shift -Essential hypertension -Pacemaker for complete heart block -Primary osteoarthritis -Bilateral lower extremity varicose veins -Obesity BMI 36.5 -Radiation esophagitis improved Plan: Discussed with patient. Continue vancomycin. Other medications to continue. Await culture results.
[2020-01-11] MEDS: ACETAMINOPHEN TAB 325 MG TAB PO PRN ×2 (01:44→12:13)
[2020-01-11] MEDS: NAPROXEN 250 MG TAB PO PRN ×2 (06:37→21:23)
[2020-01-11] MEDS ORDERED: VANCOMYCIN TROUGH DUE 1 EACH MISC MISCELLANE ONE (07:00)
[2020-01-11 08:03] LABS: Calcium 8.8 mg/dL (8.4-10.2); Potassium 4.1 mmol/L (3.5-5.1)
[2020-01-11] MEDS: ASPIRIN 81 MG PO SCH (09:54)
[2020-01-11] MEDS: MAGNESIUM OXIDE 400 MG TAB PO SCH (09:55)
[2020-01-11] MEDS: lisinopriL 10 MG TAB PO SCH ×2 (09:55→21:23)
[2020-01-11] MEDS: METOPROLOL SUCCINATE (ER) 50 MG TAB.ER.24H PO SCH ×2 (09:56→21:24)
[2020-01-11] MEDS: SPIRONOLACTONE 25 MG TAB PO SCH (09:57)
[2020-01-11] MEDS: FAMOTIDINE 20 MG TAB PO SCH (10:10)
[2020-01-11] MEDS: VANCOMYCIN 1,750 MG in SODIUM CHLORIDE 0.9% 500 ML 500 ML IVPB SCH ×2 (10:12→21:23)
[2020-01-11] MEDS: ENOXAPARIN 40 MG/0.4 ML SYRINGE SQ SCH (10:34)
[2020-01-11] MEDS: BRIMONIDINE TARTRATE 0.2% DROPS 5 ML BTL LEFT EYE SCH ×2 (10:52→21:25)
[2020-01-11] MEDS: KETOROLAC 0.5% OPHTH DROPS 5 ML BTL BOTH EYES SCH ×2 (10:53→21:25)
[2020-01-11] MEDS: TIMOLOL 0.5% OPHTH DROPS 5 ML BTL LEFT EYE SCH ×2 (10:54→21:26)
[2020-01-11] MEDS: LOTEPREDNOL ETABONATE LEFT EYE SCH ×2 (10:54→21:24)
--- NOTE | 2020-01-11 12:19 | P.PN ---
Subjective Progress Note Date: 01/11/20 HISTORY OF PRESENT ILLNESS: Patient examined this morning at the bedside. Patient is status post removal of right internal jugular vein Port-A-Cath and application of prevena wound vac with Dr. Sandy. Postop day #1. Patient states she is feeling well this morning. She denies shortness of breath. Denies chest pain or pressure. Patient's lisinopril was increased yesterday. Blood pressure is improved this morning with a reading of 141/70. Echocardiogram completed revealed ejection fraction between 40 and 45% with mild tricuspid regurgitation. PHYSICAL EXAM: VITAL SIGNS: Reviewed. GENERAL: Well-developed in no acute distress. NECK: Supple. No JVD or thyromegaly LUNGS: Respirations even and unlabored. Lungs diminished. HEART: Regular rate and rhythm. S1 and S2 heard. Wound vac noted to right chest wall. EXTREMITIES: Normal range of motion. No clubbing or cyanosis. Peripheral pulses intact. No lower extremity edema ASSESSMENT: Infected Mediport Respiratory distress, possible acute exacerbation of systolic congestive heart failure, EF 40-45% Small cell lung cancer, status post chemoradiation Abnormal troponins, likely secondary to infectious process Nonischemic cardiomyopathy with previous AICD Hypertension COPD Radiation pneumonitis PLAN: Continue current cardiac medications Patient is stable from a cardiac perspective Nurse practitioner note has been reviewed by physician. Signing provider agrees with the documented findings, assessment, and plan of care. Objective - Vital Signs Vital signs: Vital Signs Temp 97.7 F 01/11/20 12:00 Pulse 65 01/11/20 12:00 Resp 20 01/11/20 12:00 BP 164/80 01/11/20 12:00 Pulse Ox 97 01/11/20 12:00 Intake & Output 01/10/20 01/11/20 01/11/20 18:59 06:59 18:59 Intake Total 1300 120 Output Total 1601 0 Balance -301 0 120 Weight 107.7 kg Intake: IV 800 Intake, IV Titration 500 Amount Vancomycin 1,750 mg In 500 Sodium Chloride 0.9% 500 ml 500 ml @ 167 mls/hr IVPB Q12H [facility] Rx#: [id number] Oral 120 Output: Urine 1600 Stool 0 0 Estimated Blood Loss 1 Other: Voiding Method Toilet Bedside Commode # Voids 2 0 # Bowel Movements 1 0 - Labs CBC & Chem 7: 01/10/20 07:51 01/11/20 07:33 Labs: Abnormal Lab Results - Last 24 Hours (Table) 01/11/20 Range/Units 07:33 Sodium 135 L (137-145) mmol/L Glucose 105 H (74-99) mg/dL Microbiology - Last 24 Hours (Table) 01/10/20 14:00 Gram Stain - Preliminary Other - Other Wound Culture - Preliminary 01/10/20 14:00 Anaerobic Culture - Preliminary Other - Other 01/07/20 19:24 Blood Culture - Preliminary Blood No Growth after 72 hours 01/07/20 22:42 Gram Stain - Final Chest Wound Culture - Final
--- NOTE | 2020-01-11 12:59 | P.PN ---
Subjective Progress Note Date: 01/11/20 CHIEF COMPLAINT: Port-A-Cath infection HISTORY OF PRESENT ILLNESS: Patient is status post removal of right internal jugular vein Port-A-Cath and application of PREVENA incisional wound VAC. Patient is sitting up at bedside chair. She reports that she is feeling better. Denies any abdominal pain. She did receive a dose of IV Lasix yesterday for fluid overload. And she has had some improvement in her shortness of breath. Patient is tolerating diet. Denies any nausea or vomiting. She's afebrile. Her culture results are still pending. PHYSICAL EXAM: VITAL SIGNS: Reviewed GENERAL: Well-developed in no acute distress. HEENT: No sclera icterus. Extraocular movements grossly intact. Moist buccal mucosa. Head is atraumatic, normocephalic. Hears conversational speech. No nasal drainage. NECK: Supple without lymphadenopathy. CHEST: Non-labored respirations and equal bilateral excursions. Patient has wound VAC in place on chest wall CARDIOVASCULAR: Palpable 2+ radial pulses. ABDOMEN: Soft. Nondistended. Nontender. MUSCULOSKELETAL: No clubbing or cyanosis. NEUROLOGIC: No focal or lateralizing signs. Cranial nerves II through XII grossly intact. PSYCH: Appropriate affect. Alert and oriented to person, place and time. SKIN: Well perfused. Good skin turgor. ASSESSMENT: 1. Port-A-Cath infection 2. Chemotherapeutic venous access 3. Lung cancer PLAN: -Okay to discharge home from surgical standpoint -Patient to be discharged with wound VAC and to follow-up with Dr. Sandy in the office for removal of wound VAC on 01/18/2020 -Patient can sponge bathe only Physician House Piping Inspector note has been reviewed by physician. Signing provider agrees with the documented findings, assessment, and plan of care. Objective - Vital Signs Vital signs: Vital Signs Temp 97.7 F 01/11/20 12:00 Pulse 65 01/11/20 12:00 Resp 20 01/11/20 12:00 BP 164/80 01/11/20 12:00 Pulse Ox 97 01/11/20 12:00 Intake & Output 01/10/20 01/11/20 01/11/20 18:59 06:59 18:59 Intake Total 1300 120 Output Total 1601 0 0 Balance -301 0 120 Weight 107.7 kg Intake: IV 800 Intake, IV Titration 500 Amount Vancomycin 1,750 mg In 500 Sodium Chloride 0.9% 500 ml 500 ml @ 167 mls/hr IVPB Q12H [facility] Rx#: [id number] Oral 120 Output: Urine 1600 Stool 0 0 0 Estimated Blood Loss 1 Other: Voiding Method Toilet Bedside Commode # Voids 2 0 # Bowel Movements 1 0 - Labs CBC & Chem 7: 01/10/20 07:51 01/11/20 07:33 Labs: Abnormal Lab Results - Last 24 Hours (Table) 01/11/20 Range/Units 07:33 Sodium 135 L (137-145) mmol/L Glucose 105 H (74-99) mg/dL Microbiology - Last 24 Hours (Table) 01/10/20 14:00 Gram Stain - Preliminary Other - Other Wound Culture - Preliminary 01/10/20 14:00 Anaerobic Culture - Preliminary Other - Other 01/07/20 19:24 Blood Culture - Preliminary Blood No Growth after 72 hours 01/07/20 22:42 Gram Stain - Final Chest Wound Culture - Final
[2020-01-11] MEDS: SODIUM CHLORIDE 0.9% 1,000 ML IV SCH (14:07)
[2020-01-11] MEDS: MUPIROCIN 2% OINT 22 GM TUBE TOPICAL SCH ×2 (14:07→21:36)
--- NOTE | 2020-01-11 19:06 | P.PN ---
Subjective Progress Note Date: 01/11/20 Principal diagnosis: Infected MediPort, history of small cell lung carcinoma On today's evaluation of 01/10/2020 the patient is doing well. The patient is on broad-spectrum antibiotics and IV vancomycin. Cultures are still pending for now. The patient is scheduled to undergo removal of a Mediport by general surgery. Noted this port was inserted for treatment of small cell lung cancer and subsequently got infected and the patient was being treated on outpatient basis with Levaquin. Noted the patient has small cell lung cancer addition to hypertension and congestion heart failure and the patient has nonischemic artery myopathy and the patient has an AICD in place. Blood cultures still negative for now. The white cell count is not elevated. There is some minimal troponin leak. UA is negative. On 01/11/2020 patient seen in follow-up on selective care unit, her MediPort in the right chest was removed yesterday, her blood cultures have shown no growth, her culture of the chest wound has shown no growth, anaerobic cultures are pending, vital signs have been stable, she's been afebrile, she is on room air, no worsening dyspnea, lung sounds are clear, no altered mentation. She is covered with vancomycin, she's had no acute events overnight. Objective - Vital Signs Vital signs: Vital Signs Temp 98.1 F 01/11/20 16:00 Pulse 73 01/11/20 16:00 Resp 19 01/11/20 16:00 BP 168/70 01/11/20 16:00 Pulse Ox 97 01/11/20 16:00 Intake & Output 01/11/20 01/11/20 01/12/20 06:59 18:59 06:59 Intake Total 120 Output Total 0 0 Balance 0 120 Weight 107.7 kg Intake: Oral 120 Output: Stool 0 0 Other: Voiding Method Bedside Commode Bedside Commode # Voids 2 1 # Bowel Movements 0 - Exam GENERAL EXAM: Alert, very pleasant 69-year-old white female on room air with a pulse ox of 97% comfortable in no apparent distress. HEAD: Normocephalic/atraumatic. EYES: Normal reaction of pupils, equal size. Conjunctiva pink, sclera white. NOSE: Clear with pink turbinates. THROAT: No erythema or exudates. NECK: No masses, no JVD, no thyroid enlargement, no adenopathy. CHEST: No chest wall deformity. Symmetrical expansion. Right upper chest incision clean dry and intact, covered with surgical dressing LUNGS: Equal air entry with no crackles, wheeze, rhonchi or dullness. CVS: Regular rate and rhythm, normal S1 and S2, no gallops, no murmurs, no rubs ABDOMEN: Soft, nontender. No hepatosplenomegaly, normal bowel sounds, no guarding or rigidity. EXTREMITIES: No clubbing, no edema, no cyanosis, 2+ pulses and upper and lower extremities. MUSCULOSKELETAL: Muscle strength and tone normal. SPINE: No scoliosis or deformity SKIN: No rashes CENTRAL NERVOUS SYSTEM: Alert and oriented -3. No focal deficits, tone is normal in all 4 extremities. PSYCHIATRIC: Alert and oriented -3. Appropriate affect. Intact judgment and insight. - Labs CBC & Chem 7: 01/10/20 07:51 01/11/20 07:33 Labs: Abnormal Lab Results - Last 24 Hours (Table) 01/11/20 Range/Units 07:33 Sodium 135 L (137-145) mmol/L Glucose 105 H (74-99) mg/dL Microbiology - Last 24 Hours (Table) 01/10/20 14:00 Gram Stain - Preliminary Other - Other Wound Culture - Preliminary 01/10/20 14:00 Anaerobic Culture - Preliminary Other - Other 01/07/20 19:24 Blood Culture - Preliminary Blood No Growth after 72 hours Assessment and Plan Plan: Assessment: 1 Infected Mediport site, cultures are pending, blood cultures are pending, and the patient on broad-spectrum antibiotics and the patient is hemodynamically stable on no pressors. 2 History of small cell lung cancer status post chemo/radiation 3 Radiation pneumonitis/fibrosis with chronic cough 4 Mostly chronic changes in the right upper lobe based on computed tomography scan dated November 2019 5 History of congestive heart failure 6 History of hypertension 7 Degenerative joint disease 8 Nonischemic cardiomyopathy status post AICD placement 9 Degenerative joint disease Plan: Vital signs have been stable, patient has been afebrile, she is status post removal of right internal jugular vein Port-A-Cath, she has a previous incisional wound VAC. Breathing comfortably, she the dose of IV Lasix, currently on room air, no fever or chills, anticipate discharge home today. I performed a history & physical examination of the patient and discussed their management with my nurse practitioner, Trish Hanna. I reviewed the nurse practitioner's note and agree with the documented findings and plan of care. Lung sounds are positive for diminished breath sounds. The findings and the impression was discussed with the patient. I attest to the documentation by the nurse practitioner. Time with Patient: Less than 30
--- NOTE | 2020-01-11 20:22 | P.PN ---
Progress Note - Text Progress Note Date: 01/11/20 Chief Complaint: Chest tightness History of presenting complaint: This is a pleasant 69-year-old patient of Dr. tolliver. Chronic stable medical conditions include hypertension, osteoarthritis, varicose veins, and pacemaker for complete heart block.. 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 Treated with chemotherapy and radiation . Patient has been felt to be in remission for last few months. Patient has a port in the right upper chest which is only used occasionally for blood draw. Patient started having the pain in the same area for last few days. She did get antibiotics with family doctor for 2 weeks at slow improvement. But again. Symptoms progressed. Very painful tender and drainage of pus. She also saw Dr. Pugh. Subsequently she was sent down to the ER because the new graft pain. An pus drainage. Patient has no cough or sputum production. Patient also has noticed some pain across the chest. Which is worse with movement. No radiation. No dizziness the lightheadedness. Denies any fever and chills.. admitted with infected right chest wall port. Started onstarted IV ceftriaxone IV vancomycin. Troponin leak from tachycardia infection per cardiology. January 09 infected port was removed. Local wound VAC was placed. Today -sitting up in a chair. Feeling much improved. Eating. Cultures pending. Review of systems: Was done for constitutional, cardiovascular, GI, pulmonary. relevant finding as above Active Medications Acetaminophen (Acetaminophen Tab 325 Mg Tab) 650 mg PO Q6HR PRN PRN Reason: Fever and/ or Pain Last Admin: 01/11/20 12:13 Dose: 650 mg Documented by: Albuterol Sulfate (Albuterol Nebulized 2.5 Mg/3 Ml) 2.5 mg INHALATION RT-TID PRN PRN Reason: Shortness Of Breath Last Admin: 01/09/20 08:09 Dose: 2.5 mg Documented by: Aspirin (Aspirin 81 Mg) 81 mg PO DAILY [facility] Last Admin: 01/11/20 09:54 Dose: 81 mg Documented by: Brimonidine Tartrate (Brimonidine Tartrate 0.2% Drops 5 Ml Btl) 1 drops LEFT EYE BID [facility] Last Admin: 01/11/20 10:52 Dose: 1 drops Documented by: Enoxaparin Sodium (Enoxaparin 40 Mg/0.4 Ml Syringe) 40 mg SQ DAILY [facility] Last Admin: 01/11/20 10:34 Dose: 40 mg Documented by: Famotidine (Famotidine 20 Mg Tab) 40 mg PO DAILY [facility] Last Admin: 01/11/20 10:10 Dose: 40 mg Documented by: Sodium Chloride (Saline 0.9%) 1,000 mls @ 20 mls/hr IV .Q24H [facility] Last Admin: 01/11/20 14:07 Dose: Not Given Documented by: Vancomycin HCl 1,750 mg/ (Sodium Chloride) 500 mls @ 167 mls/hr IVPB Q12H [facility] Last Admin: 01/11/20 10:12 Dose: 167 mls/hr Documented by: Ipratropium [place] (Ipratropium 0.5 Mg/2.5 Ml Nebu) 0.5 mg INHALATION RT-Q6H PRN PRN Reason: Shortness Of Breath Ketorolac Tromethamine (Ketorolac 0.5% Ophth Drops 5 Ml Btl) 1 drops BOTH EYES BID [facility] Last Admin: 01/11/20 10:53 Dose: 1 drops Documented by: Lisinopril (Lisinopril 10 Mg Tab) 10 mg PO BID [facility] Last Admin: 01/11/20 09:55 Dose: 10 mg Documented by: Loperamide HCl (Loperamide 2 Mg Cap) 2 mg PO QID [facility] Magnesium Oxide (Magnesium Oxide 400 Mg Tab) 400 mg PO DAILY [facility] Last Admin: 01/11/20 09:55 Dose: 400 mg Documented by: Metoprolol Succinate (Metoprolol Succinate (Er) 50 Mg Tab.Er.24h) 50 mg PO BID [facility] Last Admin: 01/11/20 09:56 Dose: 50 mg Documented by: Mupirocin (Mupirocin 2% Oint 22 Gm Tube) 1 applic TOPICAL BID [facility] Last Admin: 01/11/20 14:07 Dose: Not Given Documented by: Naloxone HCl (Naloxone 0.4 Mg/Ml 1 Ml Vial) 0.2 mg IV Q2M PRN PRN Reason: Opioid Reversal Naproxen (Naproxen 250 Mg Tab) 250 mg PO TID PRN PRN Reason: Moderate Pain Last Admin: 01/11/20 06:37 Dose: 250 mg Documented by: Patient's Own ( Loteprednol Etabonate [Inveltys] 2.8 Ml Drops.Susp) 1 drop LEFT EYE BID [facility] Last Admin: 01/11/20 10:54 Dose: 1 drop Documented by: Spironolactone (Spironolactone 25 Mg Tab) 12.5 mg PO DAILY [facility] Last Admin: 01/11/20 09:57 Dose: 12.5 mg Documented by: Timolol Maleate (Timolol 0.5% Ophth Drops 5 Ml Btl) 1 drops LEFT EYE BID [facility] Last Admin: 01/11/20 10:54 Dose: 1 drops Documented by: Physical examination: VITAL SIGNS: 97.7, 65, 20, 164/80, 97% room air GENERAL: Sitting up in a chair, comfortable EYES: Pupils equal. Conjunctiva pale NECK: JVD not raised; masses not palpable. HEART: First and second heart sounds are normal; no edema. CHEST wall: Wound VAC over the right upper chest wall LUNGS: Respiratory rate normal, decreased breath sounds. ABDOMEN: Soft, nontender, liver spleen not palpable, no masses palpable. PSYCH: Alert and oriented x3; mood and affect normal. MUSCULOSKELETAL: Evidence of OA especially in the hands INVESTIGATIONS, reviewed in the clinical context: White count 5.1 hemoglobin 11.3 potassium 4.3 creatinine 0.75 White count 6.1 hemoglobin 11.4 platelets 360 potassium 4.5 creatinine 0.9 Troponin I 0.043, 0.077, 0.097 EKG tracing-personally reviewed by me- paced rhythm Chest x-ray film personally reviewed by me-infiltrate right upper lobe, mediastinum to the right some stenting of the right diaphragm Computed tomography scan of the chest from December 22-shows radiation scarring in the right upper lobe and contraction Assessment: -Infected port in the right upper chest wall having failed outpatient treatment. Patient has been draining pus from the same.-Removed on January 09-wound culture pending. -troponin leak felt to be from underlying tachycardia and infection per cardiology- -COPD in an ex-smoker -small cell lung cancer status post chemotherapy and radiation -Radiation pneumonitis/fibrosis right upper lung with contraction and mediastinal shift -Essential hypertension -Pacemaker for complete heart block -Primary osteoarthritis -Bilateral lower extremity varicose veins -Obesity BMI 36.5 -Radiation esophagitis improved Plan: Continue vancomycin. Other medications to continue. Discharged antibiotics to be determined as per culture results.
[2020-01-11] MEDS: LOPERAMIDE 2 MG CAP PO SCH (21:23)
--- NOTE | 2020-01-11 22:27 | PN ---
PROGRESS NOTE DATE OF SERVICE: 01/11/2020 REASON FOR FOLLOW UP: MediPort site infection. INTERVAL HISTORY: Patient is currently afebrile. The patient is feeling better. Breathing comfortably. Denies any chest pain or shortness of breath. Minimal cough. No nausea, no vomiting. No abdominal pain or diarrhea. PHYSICAL EXAMINATION: Blood pressure 162/70 with a pulse of 73, temperature 98.1. She is 97% on room air. General description: The patient is an elderly female up in the in no distress. Respiratory system: Unlabored breathing, clear to auscultation anteriorly. Heart S1, S2. Regular rate and rhythm. Abdomen soft, no tenderness. Extremities are no edema of the feet. LABS: BUN of 15, creatinine 0.86. The MediPort site culture currently negative. DIAGNOSTIC IMPRESSION AND PLAN: Patient admitted to the hospital with concern of possible MediPort site infection failing outpatient oral Levaquin therapy and the patient is status post removal of the same and culture remains to be negative on vancomycin with a blood culture negative. We will transition to oral antibiotic on discharge. Continue supportive care. MMODL / IJN: [id number] /
[2020-01-12] MEDS: ACETAMINOPHEN TAB 325 MG TAB PO PRN ×2 (02:41→14:27)
[2020-01-12] MEDS: ALBUTEROL NEBULIZED 2.5 MG/3 ML INHALATION PRN ×2 (03:54→12:25)
[2020-01-12 08:10] LABS: HCT 32.4 % (34.0-46.0); HGB 10.3 gm/dL (11.4-16.0); MCH 33.2 pg (25.0-35.0); MCHC 31.7 g/dL (31.0-37.0); MCV 104.8 fL (80.0-100.0); Macrocytosis Moderate; Platelet Count 293 k/uL (150-450); RBC 3.09 m/uL (3.80-5.40); RDW 15.6 % (11.5-15.5); WBC 4.7 k/uL (3.8-10.6)
[2020-01-12] MEDS: ASPIRIN 81 MG PO SCH (08:33)
[2020-01-12] MEDS: MAGNESIUM OXIDE 400 MG TAB PO SCH (08:34)
[2020-01-12] MEDS: FAMOTIDINE 20 MG TAB PO SCH (08:34)
[2020-01-12] MEDS: METOPROLOL SUCCINATE (ER) 50 MG TAB.ER.24H PO SCH (08:34)
[2020-01-12] MEDS: lisinopriL 10 MG TAB PO SCH (08:34)
[2020-01-12] MEDS: LOPERAMIDE 2 MG CAP PO SCH ×2 (08:34→14:30)
[2020-01-12] MEDS: NAPROXEN 250 MG TAB PO PRN (08:35)
[2020-01-12 08:36] LABS: African American GFR (CKD) >90 (>60 ml/min/1.73 sqM); Anion Gap 7 mmol/L; Blood Urea Nitrogen 15 mg/dL (7-17); Calcium 8.7 mg/dL (8.4-10.2); Carbon Dioxide 24 mmol/L (22-30); Chloride 104 mmol/L (98-107); Glucose 100 mg/dL (74-99); Non-African American GFR(CKD) 80 (>60 ml/min/1.73 sqM); Sodium 135 mmol/L (137-145)
[2020-01-12] MEDS: ENOXAPARIN 40 MG/0.4 ML SYRINGE SQ SCH (08:37)
[2020-01-12] MEDS: KETOROLAC 0.5% OPHTH DROPS 5 ML BTL BOTH EYES SCH (08:43)
[2020-01-12] MEDS: BRIMONIDINE TARTRATE 0.2% DROPS 5 ML BTL LEFT EYE SCH (08:43)
[2020-01-12] MEDS: TIMOLOL 0.5% OPHTH DROPS 5 ML BTL LEFT EYE SCH (08:44)
[2020-01-12] MEDS: LOTEPREDNOL ETABONATE LEFT EYE SCH (08:44)
[2020-01-12] MEDS: VANCOMYCIN 1,750 MG in SODIUM CHLORIDE 0.9% 500 ML 500 ML IVPB SCH ×2 (09:04→11:03)
[2020-01-12] MEDS ORDERED: SPIRONOLACTONE 25 MG TAB PO SCH (09:15)
[2020-01-12] MEDS: SPIRONOLACTONE 25 MG TAB PO SCH (10:36)
--- NOTE | 2020-01-12 10:42 | P.PN ---
Subjective Progress Note Date: 01/12/20 CHIEF COMPLAINT: Port-A-Cath infection HISTORY OF PRESENT ILLNESS: Patient is status post removal of right internal jugular vein Port-A-Cath and application of PREVENA incisional wound VAC. Patient is lying in bed comfortably. She reports her pain controlled. She reports that she is feeling better. Denies any abdominal pain. Patient is tolerating diet. Denies any nausea or vomiting. She's afebrile. Her cultural results are showing no growth so far. PHYSICAL EXAM: VITAL SIGNS: Reviewed GENERAL: Well-developed in no acute distress. HEENT: No sclera icterus. Extraocular movements grossly intact. Moist buccal mucosa. Head is atraumatic, normocephalic. Hears conversational speech. No nasal drainage. NECK: Supple without lymphadenopathy. CHEST: Non-labored respirations and equal bilateral excursions. Patient has wound VAC in place on chest wall CARDIOVASCULAR: Palpable 2+ radial pulses. ABDOMEN: Soft. Nondistended. Nontender. MUSCULOSKELETAL: No clubbing or cyanosis. NEUROLOGIC: No focal or lateralizing signs. Cranial nerves II through XII grossly intact. PSYCH: Appropriate affect. Alert and oriented to person, place and time. SKIN: Well perfused. Good skin turgor. ASSESSMENT: 1. Port-A-Cath infection 2. Chemotherapeutic venous access 3. Lung cancer PLAN: -Okay to discharge home from surgical standpoint -Patient to be discharged with wound VAC and to follow-up with Dr. Sandy in the office for removal of wound VAC on 01/18/2020 -Patient can sponge bathe only Physician [employer] note has been reviewed by physician. Signing provider agrees with the documented findings, assessment, and plan of care. Objective - Vital Signs Vital signs: Vital Signs Temp 98.1 F 01/12/20 00:00 Pulse 74 01/12/20 04:05 Resp 19 01/12/20 08:00 BP 152/86 01/12/20 04:00 Pulse Ox 94 L 01/12/20 04:00 Intake & Output 01/11/20 01/12/20 01/12/20 18:59 06:59 18:59 Intake Total 120 600 Output Total 0 Balance 120 600 Weight 108.8 kg Intake: Intake, IV Titration 500 Amount Vancomycin 1,750 mg In 500 Sodium Chloride 0.9% 500 ml 500 ml @ 167 mls/hr IVPB Q12H [facility] Rx#: [id number] Oral 120 100 Output: Stool 0 Other: Voiding Method Bedside Commode Bedside Commode # Voids 1 2 # Bowel Movements 0 - Labs CBC & Chem 7: 01/12/20 07:26 01/12/20 07:26 Labs: Abnormal Lab Results - Last 24 Hours (Table) 01/12/20 01/12/20 Range/Units 07:26 07:26 RBC 3.09 L (3.80-5.40) m/uL Hgb 10.3 L (11.4-16.0) gm/dL Hct 32.4 L (34.0-46.0) % MCV 104.8 H (80.0-100.0) fL RDW 15.6 H (11.5-15.5) % Sodium 135 L (137-145) mmol/L Glucose 100 H (74-99) mg/dL Microbiology - Last 24 Hours (Table) 01/12/20 02:15 Sputum Culture - Preliminary Sputum 01/07/20 19:24 Blood Culture - Preliminary Blood No Growth after 96 hours 01/10/20 14:00 Gram Stain - Preliminary Other - Other Wound Culture - Preliminary
[2020-01-12 11:22] VITALS: RESP 22
[2020-01-12 11:33] VITALS: BP 141/73; TEMP 97.1
[2020-01-12] MEDS: MUPIROCIN 2% OINT 22 GM TUBE TOPICAL SCH (12:24)
[2020-01-12] MEDS: SODIUM CHLORIDE 0.9% 1,000 ML IV SCH (12:24)
[2020-01-12 12:37] VITALS: PULSE 72
--- NOTE | 2020-01-12 13:28 | P.PN ---
Subjective This is a pleasant 69-year-old female past medical history significant for small cell lung cancer, nonischemic cardiomyopathy status post AICD, hypertension and COPD. She follows in the office with Dr. You. She is seen and examined sitting up in the chair. She states last night she felt short of breath and received DuoNeb treatment that did improve her breathing. She describes her shortness of breath as feeling "congested and wet." She denies symptoms of chest pain, dizziness or palpitations. Blood pressure 152/86 heart rate 74 afebrile maintaining oxygen saturation on room air. Laboratory data reviewed, WBC 4.7, hemoglobin 10.3, platelets 293, sodium 135, potassium 4.0, creatinine 0.76. Currently maintained on aspirin 81 mg daily, lisinopril 10 mg twice a day, Toprol 50 mg twice a day and Aldactone 12.5 mg daily. GENERAL: Well-appearing, well-nourished and in no acute distress. NECK: Supple without JVD or thyromegaly. LUNGS: Breath sounds clear to auscultation bilaterally. Respiration equal and unlabored. No wheezes, rales or rhonchi. Anterior chest wall wound vac noted. HEART: Regular rate and rhythm without murmurs, rubs or gallops. S1 and S2 heard. EXTREMITIES: Normal range of motion, no edema. No clubbing or cyanosis. Peripheral pulses intact. ASSESSMENT Infected mediport Abnormal troponin secondary to infectious process Acute on chronic systolic heart failure, EF 40-45% Non-ischemic cardiomyopathy s/p AICD Hypertension COPD Radiation pneumonitis PLAN Increase aldactone to 25 mg daily. Nurse Practitioner note has been reviewed, I agree with a documented findings and plan of care. Patient was seen and examined. Objective - Vital Signs Vital signs: Vital Signs Temp 98.1 F 01/12/20 00:00 Pulse 74 01/12/20 04:05 Resp 19 01/12/20 08:00 BP 152/86 01/12/20 04:00 Pulse Ox 94 L 01/12/20 04:00 Intake & Output 01/11/20 01/12/20 01/12/20 18:59 06:59 18:59 Intake Total 120 600 Output Total 0 Balance 120 600 Weight 108.8 kg Intake: Intake, IV Titration 500 Amount Vancomycin 1,750 mg In 500 Sodium Chloride 0.9% 500 ml 500 ml @ 167 mls/hr IVPB Q12H [facility] Rx#: [id number] Oral 120 100 Output: Stool 0 Other: Voiding Method Bedside Commode Bedside Commode # Voids 1 2 # Bowel Movements 0 - Labs CBC & Chem 7: 01/12/20 07:26 01/12/20 07:26 Labs: Abnormal Lab Results - Last 24 Hours (Table) 01/12/20 01/12/20 Range/Units 07:26 07:26 RBC 3.09 L (3.80-5.40) m/uL Hgb 10.3 L (11.4-16.0) gm/dL Hct 32.4 L (34.0-46.0) % MCV 104.8 H (80.0-100.0) fL RDW 15.6 H (11.5-15.5) % Sodium 135 L (137-145) mmol/L Glucose 100 H (74-99) mg/dL Microbiology - Last 24 Hours (Table) 01/12/20 02:15 Sputum Culture - Preliminary Sputum 01/07/20 19:24 Blood Culture - Preliminary Blood No Growth after 96 hours 01/10/20 14:00 Gram Stain - Preliminary Other - Other Wound Culture - Preliminary
--- NOTE | 2020-01-12 14:59 | P.PN ---
Subjective Progress Note Date: 01/12/20 Principal diagnosis: Possible infected Mediport site This is a very pleasant 69-year-old female patient who has a history of small cell lung cancer status post chemoradiation, congestive heart failure, hypertension, degenerative joint disease, nonischemic cardiomyopathy status post AICD placement. She had presented here to the emergency room with complaints of pain at her Mediport site. She had stated it was quite red and draining purulent material. She had been started on Levaquin for 10 days in the outpatient setting but was still having issues and discomfort. She is seen today in follow-up on the selective care unit. She is doing quite a bit better today compared to yesterday. Less pain and discomfort at the site. Blood culture reveals no growth to date. Wound culture is pending. She is currently on vancomycin, ceftriaxone, azithromycin. Her initial chest x-ray had revealed a new infiltrate in the right upper lobe with right paratracheal density compar ed to previous in June 2019. Possible cavitating infiltrate in the right upper lobe. She is maintaining O2 saturations in the high 90s on room air. She's afebrile. On today's evaluation of 01/10/2020 the patient is doing well. The patient is on broad-spectrum antibiotics and IV vancomycin. Cultures are still pending for now. The patient is scheduled to undergo removal of a Mediport by general surgery. Noted this port was inserted for treatment of small cell lung cancer and subsequently got infected and the patient was being treated on outpatient basis with Levaquin. Noted the patient has small cell lung cancer addition to hypertension and congestion heart failure and the patient has nonischemic artery myopathy and the patient has an AICD in place. Blood cultures still negative for now. The white cell count is not elevated. There is some minimal troponin leak. UA is negative. On 01/11/2020 patient seen in follow-up on selective care unit, her MediPort in the right chest was removed yesterday, her blood cultures have shown no growth, her culture of the chest wound has shown no growth, anaerobic cultures are pending, vital signs have been stable, she's been afebrile, she is on room air, no worsening dyspnea, lung sounds are clear, no altered mentation. She is covered with vancomycin, she's had no acute events overnight. The patient is seen today 01/12/2020 in follow-up on the selective care unit. She is currently sitting up in a chair at the bedside. Awake and alert in no acute distress. She denies any shortness of breath, cough or congestion. She is maintaining O2 saturations in the 90s on room air. She's been afebrile. Hemodynamically stable. She did have her Mediport removed. Prevena wound VAC in place. Blood, wound and sputum cultures are pending. White count 4.7. Hemoglobin 10.3. Sodium 135. Potassium 4.0. Creatinine 0.76. Currently on vancomycin. Objective - Vital Signs Vital signs: Vital Signs Temp 97.1 F L 01/12/20 11:31 Pulse 72 01/12/20 12:36 Resp 22 01/12/20 11:36 BP 141/73 01/12/20 11:31 Pulse Ox 97 01/12/20 11:31 Intake & Output 01/11/20 01/12/20 01/12/20 18:59 06:59 18:59 Intake Total 120 600 240 Output Total 0 Balance 120 600 240 Weight 108.8 kg Intake: Intake, IV Titration 500 Amount Vancomycin 1,750 mg In 500 Sodium Chloride 0.9% 500 ml 500 ml @ 167 mls/hr IVPB Q12H [facility] Rx#: [id number] Oral 120 100 240 Output: Stool 0 Other: Voiding Method Bedside Commode Bedside Commode Bedside Commode # Voids 1 2 # Bowel Movements 0 - Exam GENERAL EXAM: Alert, pleasant 69-year-old female patient, on room air, comfortable in no apparent distress. HEAD: Normocephalic. EYES: Normal reaction of pupils, equal size. NOSE: Clear with pink turbinates. THROAT: No erythema or exudates. NECK: No masses, no JVD. CHEST: No chest wall deformity. Prevena wound VAC in place over the right chest, Mediport removed. LUNGS: Equal air entry with scattered rhonchi more so on the right lung. CVS: S1 and S2 normal with no audible murmur, regular rhythm. ABDOMEN: No hepatosplenomegaly, normal bowel sounds, no guarding or rigidity. SPINE: No scoliosis or deformity SKIN: No rashes CENTRAL NERVOUS SYSTEM: No focal deficits, tone is normal in all 4 extremities. EXTREMITIES: There is no peripheral edema. No clubbing, no cyanosis. Peripheral pulses are intact. - Labs CBC & Chem 7: 01/12/20 07:26 01/12/20 07:26 Labs: Abnormal Lab Results - Last 24 Hours (Table) 01/12/20 01/12/20 Range/Units 07:26 07:26 RBC 3.09 L (3.80-5.40) m/uL Hgb 10.3 L (11.4-16.0) gm/dL Hct 32.4 L (34.0-46.0) % MCV 104.8 H (80.0-100.0) fL RDW 15.6 H (11.5-15.5) % Sodium 135 L (137-145) mmol/L Glucose 100 H (74-99) mg/dL Microbiology - Last 24 Hours (Table) 01/12/20 02:15 Sputum Culture - Preliminary Sputum 01/07/20 19:24 Blood Culture - Preliminary Blood No Growth after 96 hours 01/10/20 14:00 Gram Stain - Preliminary Other - Other Wound Culture - Preliminary Assessment and Plan Assessment: 1 Infected Mediport site, cultures are pending, blood cultures are pending. Currently on vancomycin. Port removed and Prevena wound VAC in place 2 History of small cell lung cancer status post chemo/radiation 3 Radiation pneumonitis/fibrosis with chronic cough 4 Mostly chronic changes in the right upper lobe based on computed tomography scan dated November 2019 5 History of congestive heart failure 6 History of hypertension 7 Degenerative joint disease 8 Nonischemic cardiomyopathy status post AICD placement 9 Degenerative joint disease Plan: The patient was seen and evaluated by Dr. Phelan Continue current antibiotics per ID services Stable from the pulmonary status We'll continue to follow I, the cosigning physician, performed a history & physical examination of the patient. Lungs sounds scattered rhonchi more so on the right lung. Maintaining good O2 saturations in the 90s on room air. I discussed the assessment and plan of care with my nurse practitioner, Ana Luisa Evangelista. I attest to the above note as dictated by her.
--- NOTE | 2020-01-12 15:58 | PN ---
PROGRESS NOTE DATE OF SERVICE: 01/12/2020 REASON FOR FOLLOW UP: MediPort site infection and question of pneumonia. INTERVAL HISTORY: The patient was seen on rounds this morning. The patient has been feeling better, breathing comfortably. She is currently with mild cough, not bringing up any sputum. No chest pain. No abdominal pain. Overall pain and discomfort in the right chest wall MediPort extraction site is controlled. No diarrhea. PHYSICAL EXAMINATION: Blood pressure is 141/70 with a pulse of 58, temperature 97.1. She is 97% on room air. General description is an elderly female, lying in bed in no distress. RESPIRATORY SYSTEM: Unlabored breathing, clear to auscultation anteriorly. HEART: S1, S2. Regular rate and rhythm. ABDOMEN: Soft, no tenderness. LABS: Hemoglobin is 10.2, white count 4.7, BUN of 15, creatinine 0.76. Sputum has been negative. DIAGNOSTIC IMPRESSION AND PLAN: Patient with concern for MediPort site infection in this patient status post removal of the port. Culture has been negative. Blood culture negative, question of possible pneumonia. She did well on Rocephin, vanco will be discontinued. Initial course of oral Ceftin and close outpatient followup. MMODL / IJN: [id number] /
== END 2020-01-12 17:50 | disposition home or self-care (01) | DRG 314 ==
LOC: EC 18:21 → 3SCARD 23:09 → OBSVTOIN 01-10 10:14
PROVIDERS: ADMIT Hospitalist; ATTEND Hospitalist
PROC: 0HB5XZZ Excision of Chest Skin, External Approach (ICD-10-PCS; 2020-01-10)
PROC: 0JPT0WZ Removal of Totally Implantable Vascular Access Device from Trunk Subcutaneous Tissue and Fascia, Open Approach (ICD-10-PCS; principal; 2020-01-10 13:30)
DX: T80.212A Local infection due to central venous catheter, initial encounter (principal); I50.23 Acute on chronic systolic (congestive) heart failure; I42.8 Other cardiomyopathies; I44.2 Atrioventricular block, complete; J70.0 Acute pulmonary manifestations due to radiation; C34.12 Malignant neoplasm of upper lobe, left bronchus or lung; I87.1 Compression of vein; L03.313 Cellulitis of chest wall; Y84.8 Other medical procedures as the cause of abnormal reaction of the patient, or of later complication, without mention of misadventure at the time of the procedure; E66.9 Obesity, unspecified; I11.0 Hypertensive heart disease with heart failure; Z87.891 Personal history of nicotine dependence; I83.90 Asymptomatic varicose veins of unspecified lower extremity; J44.9 Chronic obstructive pulmonary disease, unspecified; K20.80 Other esophagitis without bleeding; Y84.2 Radiological procedure and radiotherapy as the cause of abnormal reaction of the patient, or of later complication, without mention of misadventure at the time of the procedure; Z68.36 Body mass index [BMI] 36.0-36.9, adult; M17.0 Bilateral primary osteoarthritis of knee; M47.816 Spondylosis without myelopathy or radiculopathy, lumbar region; M19.049 Primary osteoarthritis, unspecified hand; M19.079 Primary osteoarthritis, unspecified ankle and foot; R93.89 Abnormal findings on diagnostic imaging of other specified body structures; Z80.0 Family history of malignant neoplasm of digestive organs; Z82.3 Family history of stroke; Z82.49 Family history of ischemic heart disease and other diseases of the circulatory system; Z79.82 Long term (current) use of aspirin; Z79.899 Other long term (current) drug therapy; Z92.21 Personal history of antineoplastic chemotherapy; Z92.3 Personal history of irradiation; Z95.810 Presence of automatic (implantable) cardiac defibrillator; Z88.0 Allergy status to penicillin; Z88.7 Allergy status to serum and vaccine; Z88.8 Allergy status to other drugs, medicaments and biological substances; Z87.01 Personal history of pneumonia (recurrent); M77.51 Other enthesopathy of right foot and ankle
CPT/HCPCS: 36415; 71045; 71046; 80048; 80053; 80202; 81003; 82565; 83605; 84484; 85025; 85027; 85610; 85730; 87040; 87070; 87075; 87205; 88305; 93005; 93306; 94640; 96361; 96365; 96366; 96367; 99285

== ENCOUNTER → 2020-03-21 | Outpatient (CLI) | payer MEDICARE, BC ==
--- NOTE | 2020-03-21 14:23 | CT ---
EXAMINATION TYPE: CT ChestAbdPelvis w con DATE OF EXAM: 03/21/2020 COMPARISON: 12/23/2019, 10/28/2019, 08/02/2019 HISTORY: 69-year-old female Follow up lung cancer. TECHNIQUE: Contiguous axial scanning of the chest, abdomen, and pelvis performed with IV Contrast, pa tient injected with 100 mL of Isovue 300. Delayed images through the kidneys were obtained. Coronal/s agittal reconstructions performed. CT DLP: 2464.7 mGycm Automated exposure control for dose reduction was used. FINDINGS: CHEST: The previous right-sided chest wall injection port has been moved in the interval. There may be a sma ll wound measuring 1.2 cm in its location. Left anterior chest wall AICD generator with right atrial, coronary sinus, and right ventricular leads. Heart normal size without pericardial effusion. Dense mitral annular calcifications. LAD calcificatio ns compatible with coronary artery disease. Aorta is normal caliber with mild to moderate atherosclerotic arch calcifications and conventional ar ch vessel branching anatomy. Redemonstrated partially calcified right peritracheal, medial right upper lobe mass measuring 5.1 x 4 .5 cm versus 5.0 x 4.9 cm, previously. It measured approximately 5.7 x 4.7 cm on 10/28/2019. Approximat rosey 5.2 x 3.8 cm on 08/02/2019. Redemonstrated volume loss and consolidation within the right right upper lobe just adjacent. Small r ight pleural effusion is unchanged. No thoracic lymphadenopathy by CT size criteria. Mild left apical pleural-parenchymal scarring. No other consolidation or pleural effusion. ABDOMEN: Prominent artifact relating to the patient's arms down by her side. Within this limitation, no focal liver lesion is seen. Liver is borderline in size and 18.0 cm. Portal venous system is patent. No dilma iary ductal dilatation. Gallbladder, right adrenal gland, kidneys, spleen, and pancreas show no gross abnormal body. Redemonstrated 1.9 cm nodule left adrenal gland. Moderate to severe atherosclerotic calcifications infrarenal abdominal aorta and iliac arteries. Barbara re stenosis right greater than left common iliac arteries. No dilated small bowel, free fluid, free air. No mesenteric or retroperitoneal lymphadenopathy. Normal appendix. Mild stool burden. Sigmoid diverticulosis. No pericolonic inflammatory change. Oral contrast progressed to the transverse colon. PELVIS: Bladder is distended. Uterus anteverted some fundal calcifications in the uterus are unchanged. Small left ovary is visualized. Right ovary not clearly delineated. No abnormal fluid collection in the pe lvis or pelvic lymphadenopathy. BONES: Mild degenerative change at the hips. Hypertrophic facet arthropathy mid to lower lumbar spine with g rade 1 anterolisthesis L4-L5. DISH within the mid to lower thoracic spine. IMPRESSION: 1. PARTIALLY CALCIFIED MEDIAL RIGHT UPPER LOBE/RIGHT PARATRACHEAL MASS MEASURING 5.1 X 4.5 CM (NOT SI GNIFICANTLY CHANGED FROM 12/23/2019 WHERE IT MEASURED 5.0 X 4.9 CM). ADJACENT VOLUME LOSS AND CONSOLI DATION OF THE RIGHT UPPER LOBE IS STABLE, LIKELY POSTTREATMENT CHANGE RELATED TO THE RADIATION PORT. SMALL RIGHT PLEURAL EFFUSION ALSO REMAINS. 2. NO NEW LYMPHADENOPATHY OR MASS TO SUGGEST PROGRESSION. 3. STABLE 1.9 CM LEFT ADRENAL NODULE. SIGMOID DIVERTICULOSIS. THERE MAY BE SEVERE ATHEROSCLEROTIC NIXON NOSIS WITHIN THE RIGHT GREATER THAN LEFT COMMON ILIAC ARTERIES. 4. INTERVAL REMOVAL OF THE PATIENT'S RIGHT ANTERIOR CHEST WALL INJECTION PORT. THERE MAY BE A SMALL 1 .3 CM WOUND IN THIS LOCATION. CLINICALLY CORRELATE.
--- NOTE | 2020-03-21 14:43 | CT ---
EXAMINATION TYPE: CT brain wo/w con DATE OF EXAM: 03/21/2020 COMPARISON: 12/23/2019 HISTORY: 69-year-old female C34.11 Follow up lung cancer. TECHNIQUE: Examination was done in axial plane without intravenous contrast. Coronal and sagittal r econstructions performed. CT DLP: 2226.3 mGycm Automated exposure control for dose reduction was used. FINDINGS: There is no evidence of acute intracranial hemorrhage, acute ischemic changes, mass, mass-effect, or extra-axial fluid collection. There is no effacement of cerebral sulci or basal subarachnoid cister ns. There is no midline shift. Wade-white matter distinction is preserved. Demonstrated mild to moderate ventriculomegaly and confluent white matter hypodensities in both cereb ral hemispheres. Atherosclerotic calcifications in the carotid siphons. Persistent origin right posterior cerebral artery. Dural venous sinuses are patent. No enhancing intracranial lesions. Slight leftward nasal septal deviation. Paranasal sinuses and mastoid air cells are well pneumatized. Orbits and globes are intact. IMPRESSION: 1. No enhancing lesions to suggest intracranial metastases by CT. 2. Stable hydrocephalus probably in part due to central cerebral atrophy. Correlate to exclude a comp onent of NPH. 3. Moderate confluent burden of chronic small vessel ischemic disease.
== END | disposition home or self-care (01) ==
LOC: RADCTMAIN 10:53
PROVIDERS: ATTEND Radiology Radiation Oncology
DX: C34.11 Malignant neoplasm of upper lobe, right bronchus or lung (principal); I67.82 Cerebral ischemia; G91.9 Hydrocephalus, unspecified; E27.8 Other specified disorders of adrenal gland; K57.30 Diverticulosis of large intestine without perforation or abscess without bleeding; J90 Pleural effusion, not elsewhere classified; Z92.3 Personal history of irradiation; Z87.891 Personal history of nicotine dependence; Z88.1 Allergy status to other antibiotic agents; Z88.8 Allergy status to other drugs, medicaments and biological substances
CPT/HCPCS: 82565; 84520; 70470; 71260; 74177; 36415; Q9967

== ENCOUNTER → 2020-06-20 | Outpatient (CLI) | payer MEDICARE, BC ==
--- NOTE | 2020-06-20 14:48 | CT ---
EXAMINATION TYPE: CT brain wo/w con DATE OF EXAM: 06/20/2020 COMPARISON: 03/21/2020 HISTORY: Lung CA CT DLP: 2626.0mGycm CONTRAST: CT scan of the head is performed without and with IV Contrast, patient injected with 80 mL of Isovue 300. Unenhanced followed by contrast enhanced CT of the brain is submitted for evaluation. The ventricles are midline. There is moderate ventricular enlargement periventricular white matter ischemic demyel ination. There is no evidence for intracranial hemorrhage or extra-axial collection. No mass effects are identified. Visualized bony calvarium is intact. Contrast is administered and no enhancing les ions are detected. No pathologic enhancement is identified. If symptoms persist consider MRI. IMPRESSION: No enhancing lesions identified at this time.
--- NOTE | 2020-06-21 08:00 | CT ---
EXAMINATION TYPE: CT ChestAbdPelvis w con DATE OF EXAM: 06/20/2020 COMPARISON: 03/21/2020 HISTORY: Lung CA CT DLP: 3343.40 mGycm CONTRAST: CT scan of the chest, abdomen and pelvis is performed with Oral Contrast and with IV Contrast, patien t injected with 80 mL of Isovue 300. CT Chest: LUNGS: Again noted is a partially calcified right paratracheal mass currently measuring 4.8 x 3.8 cm versus 5.1 x 4.5 cm previously. Again noted is adjacent and surrounding consolidation and volume loss unchanged from prior study. No new nodules or masses seen. MEDIASTINUM: Thoracic aorta is of normal caliber. The heart is not enlarged. No evidence for media stinal mass or adenopathy. HILAR STRUCTURES: No evidence for mass. No hilar adenopathy is appreciated. OTHER: No significant abnormality. CONTRAST CT ABDOMEN AND PELVIS FINDINGS: LIVER/GB: No calcified gallstones. Tiny hypoattenuating lesion at the dome of the liver measuring 8 mm unchanged from prior study. Severe reflect a small cyst. No additional hepatic lesions are seen. Biliary tree is of normal caliber. PANCREAS: No inflammation. No distinct mass. SPLEEN: No splenic enlargement. No lesion seen. ADRENALS: No nodule. No thickening. KIDNEYS/BLADDER: No hydronephrosis. No nephrolithiasis. No disctinct renal mass. BOWEL: Normal appendix. Normal bowel caliber. No inflammation. GENITAL ORGANS: No gross abnormality. LYMPH NODES: No greater than 1cm abdominal or pelvic lymph nodes are appreciated. AORTA: No significant abnormality. OSSEOUS STRUCTURES: No significant abnormality is seen. OTHER: No significant additional abnormality is seen. IMPRESSION: 1. Again noted is a partially calcified right paratracheal mass currently measuring 4.8 x 3.8 cm vers us 5.1 x 4.5 cm previously. Again noted is adjacent and surrounding consolidation and volume loss unc hanged from prior study. 2. Stable probable tiny cyst dome of the liver.
== END | disposition home or self-care (01) ==
LOC: RADCTMAIN 11:33
PROVIDERS: ATTEND Radiology Radiation Oncology
DX: C34.90 Malignant neoplasm of unspecified part of unspecified bronchus or lung (principal)
CPT/HCPCS: 82565; 84520; 70470; 71260; 74177; 36415; Q9967 ×2

== ENCOUNTER → 2020-10-24 | Outpatient (CLI) | payer MEDICARE, BC ==
--- NOTE | 2020-10-24 11:22 | CT ---
EXAMINATION TYPE: CT brain wo/w con DATE OF EXAM: 10/24/2020 COMPARISON: 06/20/2020 HISTORY: Malignant neoplasm of upper lobe, right bronchus CT DLP: 2436.68 mGycm Unenhanced followed by contrast enhanced CT of the brain was performed. The ventricles, basal cisterns and sulci overlying the cerebral convexities demonstrate mild enlargem ent. There is no evidence for intracranial hemorrhage or sulcal effacement. There is decreased attenuation about the periventricular white matter and deep white matter of both c erebral hemispheres, compatible with chronic small vessel ischemia. Differential diagnosis does inclu de demyelination. No mass effects are seen.No midline shift. Osseous calvarium is intact. If symptoms persist consider MRI. No pathologic enhancement identified. IMPRESSION: 1. Age related atrophic and chronic small vessel ischemic change without acute intracranial process s een at this time.
== END | disposition home or self-care (01) ==
LOC: RADCTMAIN 08:37
PROVIDERS: ATTEND Radiology Radiation Oncology
DX: C34.11 Malignant neoplasm of upper lobe, right bronchus or lung (principal); I67.82 Cerebral ischemia
CPT/HCPCS: 70470; 82565; 84520

== ENCOUNTER → 2020-10-24 | Outpatient (CLI) | payer MEDICARE, BC ==
--- NOTE | 2020-10-24 11:38 | CT ---
EXAMINATION TYPE: CT ChestAbdPelvis wo/w con DATE OF EXAM: 10/24/2020 COMPARISON: 06/20/2020 HISTORY: Malignant neoplasm of upper lobe, right bronchus CT DLP: 3608.13 mGycm CONTRAST: CT scan of the chest, abdomen and pelvis is performed with Oral Contrast and without and with IV Cont rast, patient injected with 100 ml mL of Isovue 300. CT Chest: LUNGS: Again noted is a right paratracheal mass which is partially calcified and currently measuring 4.8 x 4.3 cm versus 4.8 x 3.8 cm previously. There is a surrounding consolidation and volume loss unc hanged from prior examination. Soft tissue surrounds the right upper lobe bronchus. There is a new sm all right-sided pleural effusion with maximal AP dimension of approximately 2 cm. The remainder of th e right lung is clear. Left lung is free of mass nodule or infiltrate. MEDIASTINUM: Thoracic aorta is of normal caliber. The heart is not enlarged. No evidence for media stinal mass or adenopathy. HILAR STRUCTURES: No evidence for mass. No hilar adenopathy is appreciated. OTHER: No significant abnormality. CONTRAST CT ABDOMEN AND PELVIS FINDINGS: LIVER/GB: No calcified gallstones. No space occupying hepatic lesion. Biliary tree is of normal ca liber. PANCREAS: No inflammation. No distinct mass. SPLEEN: No splenic enlargement. No lesion seen. ADRENALS: No nodule. No thickening. KIDNEYS/BLADDER: No hydronephrosis. No nephrolithiasis. No disctinct renal mass. BOWEL: Normal appendix. Normal bowel caliber. No inflammation. GENITAL ORGANS: Small uterine myometrial calcifications may reflect underlying leiomyomatous change. LYMPH NODES: No greater than 1cm abdominal or pelvic lymph nodes are appreciated. AORTA: Scattered calcific plaque of the abdominal aorta with the dense plaque noted of the common benji ac arteries bilaterally. No evidence for aneurysm. Suspect hemodynamically significant stenosis bilat erally of the common iliac arteries. OSSEOUS STRUCTURES: No significant abnormality is seen. OTHER: No significant additional abnormality is seen. IMPRESSION: 1. Stable partially calcified right paratracheal mass with surrounding soft tissue as noted above. 2. New right-sided pleural effusion.
== END | disposition home or self-care (01) ==
LOC: RADCTMAIN 08:28
PROVIDERS: ATTEND Internal Medicine Hematology & Oncology
DX: C34.11 Malignant neoplasm of upper lobe, right bronchus or lung (principal); J90 Pleural effusion, not elsewhere classified
CPT/HCPCS: 71270; 74178; 36415; Q9967

== ENCOUNTER → 2020-11-17 | Outpatient (CLI) | payer MEDICARE, BC ==
[2020-11-17 12:01] LABS: HCT 38.2 % (34.0-46.0); HGB 12.3 gm/dL (11.4-16.0); MCH 32.8 pg (25.0-35.0); MCHC 32.1 g/dL (31.0-37.0); MCV 102.2 fL (80.0-100.0); Macrocytosis Slight; Mean Platelet Volume 6.9; Platelet Count 271 k/uL (150-450); RBC 3.74 m/uL (3.80-5.40)
[2020-11-17 12:14] LABS: Potassium 4.9 mmol/L (3.5-5.1)
== END | disposition home or self-care (01) ==
LOC: LABPAT 10:43
PROVIDERS: ATTEND Internal Medicine Clinical Cardiac Electrophysiology
DX: Z01.812 Encounter for preprocedural laboratory examination (principal); I42.8 Other cardiomyopathies
CPT/HCPCS: 36415; 80051; 82565; 84520; 85027

== ENCOUNTER → 2020-11-17 | Outpatient (CLI) | payer MEDICARE, BC ==
--- NOTE | 2020-11-17 10:48 | XR ---
EXAMINATION TYPE: XR chest special 4+ views DATE OF EXAM: 11/17/2020 COMPARISON: NONE HISTORY: Shortness of breath TECHNIQUE: Frontal and lateral views of the chest are obtained. Additional bilateral decubitus views obtained. FINDINGS: Scattered senescent parenchymal changes noted. Hyperinflation compatible with COPD. No evidence for infiltrate. No evidence for atelectasis. Heart size is stable. Right paratracheal soft tissue mass measures 7.7 x 5.3 cm compatible with patient's history of malign robbi. Decubitus views of the patella demonstrate evidence for layering pleural effusion. No evidence for hilar prominence. Degenerative changes dorsal spine. IMPRESSION: 1. Right paratracheal soft tissue mass measures 7.7 x 5.3 cm compatible with patient's history of mal ignancy. Decubitus views of the patella demonstrate evidence for layering pleural effusion.
== END | disposition home or self-care (01) ==
LOC: RADXRMAIN 09:55
PROVIDERS: ATTEND Internal Medicine Hematology & Oncology
DX: M79.89 Other specified soft tissue disorders (principal); J90 Pleural effusion, not elsewhere classified
CPT/HCPCS: 71048

== ENCOUNTER 2020-11-23 06:28 | Day surgery (SDC) | payer MEDICARE, BC ==
[2020-11-21 13:30] VITALS: BMI 41.6
[~2020-11-23 06:28] MED LIST changes: -ALBUTEROL NEBULIZED 2.5 MG/3 ML INHALATION ONE; +SODIUM CHLORIDE 0.9% 1,000 ML IV SCH
[2020-11-23 07:02] VITALS: RESP 18; TEMP 98.1
[2020-11-23] MEDS ORDERED: IOPAMIDOL-370 50ML BTL INJ ONE (07:46)
[2020-11-23 09:06] VITALS: BP 171/65; PULSE 71
--- NOTE | 2020-11-23 09:15 | P.EPPROC ---
- EP Procedure Note Electrophysiology Procedure Note: Diagnosis Elevated and rising RV thresholds and RV lead impedances Patient has a biventricular ICD Procedures performed Left upper extremity venogram Left upper extremity venogram reveals near occlusion of the SVC subclavian junction 50 mL IV dye was injected ICD interrogation, biventricular, [employer] Battery longevity 5.6 years Atrial pacing impedance 342 ohms Atrial pacing threshold 1.3 V at 0.4 ms P waves 1.9 mV LV pacing impedance 988 ohms Pacing threshold 1 V at 1 ms RV pacing impedance 1824 ohms RV defib impedance 73 ohms Pacing threshold greater than 4.25 V at 0.5 ms Intermittent T-wave oversensing noted at 0.3 mV DFT testing and anesthesia Shock and T wave protocol was used to induce ventricular fibrillation This was adequately and appropriately detected at least sensitivity with 2 dropouts and successfully internally defibrillated with 10 J shock Shocking impedance 74 ohms Charge time 1.9 seconds No post shock noise Reprogrammed parameters Bi V pacing reprogrammed to 50-1:30 bpm DDDR RV pacing amplitude reduced to 0.5 V at 0.5 ms to minimize battery loss. RV lead capture is greater than 4.5 ms and climbing. RV lead impedance is 1800, likely RV pacing coil fracture Non-adaptive SEAMER pacing with preferential LV pacing. 80 ms offset Antitachycardia RV pacing amplitude at max output Post shock pacing from the RV at max output RV sensitivity reprogrammed to 0.45 mV to minimize T-wave oversensing Alert for RV pacing impedance 3000 ohms Alert for RV defib lead impedance reprogrammed to 130 ohms VT initial detection beats 48 Monitor initial beats 52 beats Appropriate antitachycardia pacing cartilage and defibrillation programmed VT zone 176 beats a minute VF zone 214 beats a minute Appropriate antitachycardia pacing cardioversion and defibrillation Recommend Patient's axillary subclavian junction was occluded Up would not recommend laser lead extraction I would not recommend implantation of a new RV lead She will LV only pace LV function is greater than 45% Atrial lead is functioning normally The defibrillation component of the RV lead is functioning normally and will be watched Patient has a history of lung cancer status post chemotherapy Maximize heart failure medications Today I will increase the dose of metoprolol succinate to 75 g twice daily After 3 weeks if her blood pressure is still greater than 135 systolic then the dose will be increased 200 mg twice daily, metoprolol succinate This was discussed with the patient
== END 2020-11-23 09:28 | disposition home or self-care (01) ==
LOC: CATHEP 06:28
PROVIDERS: ATTEND Internal Medicine Clinical Cardiac Electrophysiology
DX: I12.0 Hypertensive chronic kidney disease with stage 5 chronic kidney disease or end stage renal disease (principal); I50.9 Heart failure, unspecified; E78.5 Hyperlipidemia, unspecified; R55 Syncope and collapse; K21.9 Gastro-esophageal reflux disease without esophagitis; J44.9 Chronic obstructive pulmonary disease, unspecified; R91.8 Other nonspecific abnormal finding of lung field; Z79.82 Long term (current) use of aspirin; Z79.51 Long term (current) use of inhaled steroids; Z79.01 Long term (current) use of anticoagulants; Z79.899 Other long term (current) drug therapy; Z85.118 Personal history of other malignant neoplasm of bronchus and lung; Z92.21 Personal history of antineoplastic chemotherapy
CPT/HCPCS: 87635; Q9967; 75820; 93642

== ENCOUNTER 2020-11-26 02:48 | Emergency (ER) | payer MEDICARE, BC ==
[2020-11-26 02:54] VITALS: BP 138/112; PULSE 89; RESP 16; TEMP 97.7
[2020-11-26 03:01] LABS: Glucose,Whole Blood 118 mg/dL (75-99)
--- NOTE | 2020-11-26 03:09 | ED ---
Fall HPI - General Chief Complaint: Fall Stated Complaint: Fall Time Seen by Provider: 11/26/20 02:56 Source: patient, EMS Mode of arrival: EMS - History of Present Illness Initial Comments: This patient is a 70-year-old woman who is brought to have evaluation after she had fallen from the commode onto the floor striking her head. She believes she did have a brief episode of passing out. She complains of some mild headache but no other injuries. MD Complaint: fall -: hour(s) Fall From: chair When Fall Occurred: just prior to arrival Fall Witnessed: no Place Fall Occurred: home Loss of Consciousness: second(s) Prolonged Down Time?: no Symptoms Prior to Fall: none Location: head Severity: mild Context: tripped/slipped Associated Symptoms: headache - Related Data Home Medications Medication Instructions Recorded Confirmed Aspirin 81 mg PO DAILY 07/27/13 11/30/20 Apixaban [Eliquis] 5 mg PO BID 11/21/20 11/30/20 Glycopyrrolate/Formoterol Fum 2 puff INHALATION RT-BID 11/21/20 11/30/20 [Bevespi Aerosphere Inhaler] Ipratropium-Albuterol Nebulize 3 ml INHALATION RT-QID PRN 11/21/20 11/30/20 [Duoneb 0.5 mg-3 mg/3 ml Soln] Sacubitril/Valsartan [Entresto 24 1 tab PO BID 11/21/20 11/30/20 mg-26 mg Tablet] Famotidine 40 mg PO W/SUPPER 11/30/20 11/30/20 Previous Rx's Medication Instructions Recorded Spironolactone [Aldactone] 25 mg PO DAILY #30 tab 01/12/20 Budesonide-Formot 160-4.5 Mcg 2 puff INHALATION RT-BID #1 each 12/06/20 [Symbicort 160-4.5 Mcg Inhaler] Furosemide [Lasix] 40 mg PO DAILY #30 tab 12/06/20 Midodrine [ProAmatine] 5 mg PO AC-BID #60 tab 12/06/20 predniSONE 0 mg PO DIRECTED #30 tab 12/06/20 Allergies Allergy/AdvReac Type Severity Reaction Status Date / Time losartan [Losartan] Allergy Severe Rash/Hives Verified 11/30/20 23:03 Penicillins Allergy Severe Rash/Hives Verified 11/30/20 23:03 cortisone [Cortisone] AdvReac Severe flushed Verified 11/30/20 23:03 skin, depression Tetanus Vaccines and Toxoid AdvReac Severe huge Verified 11/30/20 23:03 [Tetanus Vaccines & Toxoid] localized swelling Review of Systems ROS Statement: Those systems with pertinent positive or pertinent negative responses have been documented in the HPI. ROS Other: All systems not noted in ROS Statement are negative. Constitutional: Denies: fever, chills, weakness Eyes: Denies: eye pain, vision change Respiratory: Denies: cough, dyspnea Cardiovascular: Denies: chest pain, palpitations Gastrointestinal: Denies: abdominal pain, vomiting, diarrhea Genitourinary: Denies: dysuria, hematuria Musculoskeletal: Denies: back pain Skin: Denies: rash Neurological: Reports: as per HPI, headache. Denies: weakness, numbness, confusion Past Medical History Past Medical History: Cancer, Heart Failure, Hypertension, Osteoarthritis (OA), Pneumonia, Syncope Additional Past Medical History / Comment(s): P malignant HTN with pulmonary vascular congestion/R upper lung mass. Completed chemo and radiation. 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 History of Any Multi-Drug Resistant Organisms: None Reported Past Surgical History: Pacemaker Additional Past Surgical History / Comment(s): 2013 BiV AICD/generator change 2013 cardiac cath Past Anesthesia/Blood Transfusion Reactions: No Reported Reaction Additional Past Anesthesia/Blood Transfusion Reaction / Comment(s): Pt hsa never had general or spinal anesthesia. Type of Cardiac Device: Biventricular Pacemaker, AICD Device Placement Date:: 2013 Past Psychological History: No Psychological Hx Reported Smoking Status: Former smoker Past Alcohol Use History: None Reported Past Drug Use History: None Reported - Past Family History Brother(s) Family Medical History: Cancer Additional Family Medical History / Comment(s): pancreatic cancer Father Family Medical History: CVA/TIA, Hypertension Additional Family Medical History / Comment(s): third degree block, stroke Mother Family Medical History: Hypertension General Exam Limitations: no limitations General appearance: alert, in no apparent distress Head exam: Present: atraumatic, normocephalic Eye exam: Present: normal appearance. Absent: scleral icterus, conjunctival injection ENT exam: Present: normal oropharynx Neck exam: Present: normal inspection, full ROM. Absent: tenderness Respiratory exam: Present: normal lung sounds bilaterally. Absent: respiratory distress, wheezes, rales, rhonchi, stridor Cardiovascular Exam: Present: regular rate, normal rhythm, normal heart sounds GI/Abdominal exam: Present: soft. Absent: distended, tenderness, guarding, rebound, rigid Extremities exam: Present: normal inspection, normal capillary refill. Absent: pedal edema Back exam: Present: normal inspection. Absent: CVA tenderness (R), CVA tenderness (L), vertebral tenderness Neurological exam: Present: alert, CN II-XII intact. Absent: motor sensory deficit Skin exam: Present: warm, dry, intact, normal color. Absent: rash Course Vital Signs 11/26/20 02:49 Temperature 97.7 F Pulse Rate 89 Respiratory 16 Rate Blood Pressure 138/112 O2 Sat by Pulse 98 Oximetry Medical Decision Making - Lab Data Result diagrams: 11/26/20 02:54 11/26/20 02:54 Lab Results 11/26/20 11/26/20 11/26/20 Range/Units 02:54 02:54 02:54 WBC 6.8 (3.8-10.6) k/uL RBC 3.60 L (3.80-5.40) m/uL Hgb 12.0 (11.4-16.0) gm/dL Hct 36.3 (34.0-46.0) % MCV 100.9 H (80.0-100.0) fL MCH 33.5 (25.0-35.0) pg MCHC 33.2 (31.0-37.0) g/dL RDW 14.5 (11.5-15.5) % Plt Count 264 (150-450) k/uL MPV 7.2 Neutrophils % 76 % Lymphocytes % 11 % Monocytes % 7 % Eosinophils % 2 % Basophils % 1 % Neutrophils # 5.2 (1.3-7.7) k/uL Lymphocytes # 0.8 L (1.0-4.8) k/uL Monocytes # 0.5 (0-1.0) k/uL Eosinophils # 0.1 (0-0.7) k/uL Basophils # 0.1 (0-0.2) k/uL Macrocytosis Slight PT 10.1 (9.0-12.0) sec INR 0.9 (<1.2) APTT 27.3 (22.0-30.0) sec Sodium 136 L (137-145) mmol/L Potassium 4.9 (3.5-5.1) mmol/L Chloride 107 (98-107) mmol/L Carbon Dioxide 20 L (22-30) mmol/L Anion Gap 9 mmol/L BUN 29 H (7-17) mg/dL Creatinine 0.98 (0.52-1.04) mg/dL Est GFR (CKD-EPI)AfAm 67 (>60 ml/min/1.73 sqM) Est GFR (CKD-EPI)NonAf 58 (>60 ml/min/1.73 sqM) Glucose 133 H (74-99) mg/dL POC Glucose (mg/dL) (75-99) mg/dL POC Glu Stave Saw Operator ID Plasma Lactic Acid Yousif (0.7-2.0) mmol/L Calcium 8.9 (8.4-10.2) mg/dL Total Bilirubin 0.3 (0.2-1.3) mg/dL AST 19 (14-36) U/L ALT 12 (4-34) U/L Alkaline Phosphatase 43 (38-126) U/L Troponin I (0.000-0.034) ng/mL Total Protein 7.7 (6.3-8.2) g/dL Albumin 4.1 (3.5-5.0) g/dL Urine Color Urine Appearance (Clear) Urine pH (5.0-8.0) Ur Specific Lugoff (1.001-1.035) Urine Protein (Negative) Urine Glucose (UA) (Negative) Urine Ketones (Negative) Urine Blood (Negative) Urine Nitrite (Negative) Urine Bilirubin (Negative) Urine Urobilinogen (<2.0) mg/dL Ur Leukocyte Esterase (Negative) Urine RBC (0-5) /hpf Urine WBC (0-5) /hpf Ur Squamous Epith Cells (0-4) /hpf Urine Bacteria (None) /hpf Hyaline Casts (0-2) /lpf Urine Mucus (None) /hpf Urine Yeast (Budding) (None) /hpf Serum Alcohol <10 mg/dL Blood Type Blood Type Confirm Blood Type Recheck Bld Type Recheck Status Antibody Screen Spec Expiration Date 11/26/20 11/26/20 11/26/20 Range/Units 02:54 02:54 02:54 WBC (3.8-10.6) k/uL RBC (3.80-5.40) m/uL Hgb (11.4-16.0) gm/dL Hct (34.0-46.0) % MCV (80.0-100.0) fL MCH (25.0-35.0) pg MCHC (31.0-37.0) g/dL RDW (11.5-15.5) % Plt Count (150-450) k/uL MPV Neutrophils % % Lymphocytes % % Monocytes % % Eosinophils % % Basophils % % Neutrophils # (1.3-7.7) k/uL Lymphocytes # (1.0-4.8) k/uL Monocytes # (0-1.0) k/uL Eosinophils # (0-0.7) k/uL Basophils # (0-0.2) k/uL Macrocytosis PT (9.0-12.0) sec INR (<1.2) APTT (22.0-30.0) sec Sodium (137-145) mmol/L Potassium (3.5-5.1) mmol/L Chloride (98-107) mmol/L Carbon Dioxide (22-30) mmol/L Anion Gap mmol/L BUN (7-17) mg/dL Creatinine (0.52-1.04) mg/dL Est GFR (CKD-EPI)AfAm (>60 ml/min/1.73 sqM) Est GFR (CKD-EPI)NonAf (>60 ml/min/1.73 sqM) Glucose (74-99) mg/dL POC Glucose (mg/dL) (75-99) mg/dL POC Glu Stave Saw Operator ID Plasma Lactic Acid Yousif 1.6 (0.7-2.0) mmol/L Calcium (8.4-10.2) mg/dL Total Bilirubin (0.2-1.3) mg/dL AST (14-36) U/L ALT (4-34) U/L Alkaline Phosphatase (38-126) U/L Troponin I <0.012 (0.000-0.034) ng/mL Total Protein (6.3-8.2) g/dL Albumin (3.5-5.0) g/dL Urine Color Urine Appearance (Clear) Urine pH (5.0-8.0) Ur Specific Lugoff (1.001-1.035) Urine Protein (Negative) Urine Glucose (UA) (Negative) Urine Ketones (Negative) Urine Blood (Negative) Urine Nitrite (Negative) Urine Bilirubin (Negative) Urine Urobilinogen (<2.0) mg/dL Ur Leukocyte Esterase (Negative) Urine RBC (0-5) /hpf Urine WBC (0-5) /hpf Ur Squamous Epith Cells (0-4) /hpf Urine Bacteria (None) /hpf Hyaline Casts (0-2) /lpf Urine Mucus (None) /hpf Urine Yeast (Budding) (None) /hpf Serum Alcohol mg/dL Blood Type O Positive Blood Type Confirm Blood Type Recheck No Previous Record Bld Type Recheck Status CABO Indicated Antibody Screen NEGATIVE Spec Expiration Date 11/29/2020235311/26/20 11/26/20 11/26/20 Range/Units 02:56 02:59 04:51 WBC (3.8-10.6) k/uL RBC (3.80-5.40) m/uL Hgb (11.4-16.0) gm/dL Hct (34.0-46.0) % MCV (80.0-100.0) fL MCH (25.0-35.0) pg MCHC (31.0-37.0) g/dL RDW (11.5-15.5) % Plt Count (150-450) k/uL MPV Neutrophils % % Lymphocytes % % Monocytes % % Eosinophils % % Basophils % % Neutrophils # (1.3-7.7) k/uL Lymphocytes # (1.0-4.8) k/uL Monocytes # (0-1.0) k/uL Eosinophils # (0-0.7) k/uL Basophils # (0-0.2) k/uL Macrocytosis PT (9.0-12.0) sec INR (<1.2) APTT (22.0-30.0) sec Sodium (137-145) mmol/L Potassium (3.5-5.1) mmol/L Chloride (98-107) mmol/L Carbon Dioxide (22-30) mmol/L Anion Gap mmol/L BUN (7-17) mg/dL Creatinine (0.52-1.04) mg/dL Est GFR (CKD-EPI)AfAm (>60 ml/min/1.73 sqM) Est GFR (CKD-EPI)NonAf (>60 ml/min/1.73 sqM) Glucose (74-99) mg/dL POC Glucose (mg/dL) 118 H (75-99) mg/dL POC Glu Stave Saw Operator ID Fili Emanuel Plasma Lactic Acid Yousif (0.7-2.0) mmol/L Calcium (8.4-10.2) mg/dL Total Bilirubin (0.2-1.3) mg/dL AST (14-36) U/L ALT (4-34) U/L Alkaline Phosphatase (38-126) U/L Troponin I (0.000-0.034) ng/mL Total Protein (6.3-8.2) g/dL Albumin (3.5-5.0) g/dL Urine Color Light Yellow Urine Appearance Clear (Clear) Urine pH 5.0 (5.0-8.0) Ur Specific Lug[place] 1.023 (1.001-1.035) Urine Protein Trace H (Negative) Urine Glucose (UA) Negative (Negative) Urine Ketones Negative (Negative) Urine Blood Trace H (Negative) Urine Nitrite Positive H (Negative) Urine Bilirubin Negative (Negative) Urine Urobilinogen <2.0 (<2.0) mg/dL Ur Leukocyte Esterase Large H (Negative) Urine RBC 2 (0-5) /hpf Urine WBC 26 H (0-5) /hpf Ur Squamous Epith Cells <1 (0-4) /hpf Urine Bacteria Many H (None) /hpf Hyaline Casts 13 H (0-2) /lpf Urine Mucus Rare H (None) /hpf Urine Yeast (Budding) Occasional H (None) /hpf Serum Alcohol mg/dL Blood Type Blood Type Confirm O Positive Blood Type Recheck Bld Type Recheck Status Antibody Screen Spec Expiration Date - EKG Data -: EKG Interpreted by Me Rate: normal (90 bpm) Interpretation: other (Underlying rhythm appears to be a ventricular paced rhythm, rate 90 bpm) Disposition Clinical Impression: Fall, Head injury Disposition: HOME SELF-CARE Condition: Good Instructions (If sedation given, give patient instructions): Head Injury (ED), Fall Prevention (ED) Is patient prescribed a controlled substance at d/c from ED?: No Referrals: Arian Forrest MD [Primary Care Provider] - 1-2 days
[2020-11-26 03:11] LABS: Basophils # (A) 0.1 k/uL (0-0.2); Basophils % (A) 1 %; Eosinophils # (A) 0.1 k/uL (0-0.7); Eosinophils % (A) 2 %; HCT 36.3 % (34.0-46.0); Lymphocytes # (A) 0.8 k/uL (1.0-4.8); Lymphocytes % (A) 11 %; MCH 33.5 pg (25.0-35.0); MCHC 33.2 g/dL (31.0-37.0); MCV 100.9 fL (80.0-100.0); Macrocytosis Slight; Mean Platelet Volume 7.2; Monocytes # (A) 0.5 k/uL (0-1.0); Monocytes % (A) 7 %; Neutrophils # (A) 5.2 k/uL (1.3-7.7); Neutrophils % (A) 76 %; Platelet Count 264 k/uL (150-450); RDW 14.5 % (11.5-15.5); WBC 6.8 k/uL (3.8-10.6)
--- NOTE | 2020-11-26 03:11 | XR ---
EXAMINATION TYPE: XR chest 1V portable DATE OF EXAM: 11/26/2020 COMPARISON: 01/10/2020 HISTORY: Fall. Hit head. Trauma. TECHNIQUE: Single view FINDINGS: There is widening of the mediastinum in the right paratracheal region. There is left axilla ry pacemaker. There is some interstitial infiltrates in both lower lobes. There is no obvious heart f ailure. Heart appears enlarged. I see no definite pleural effusion. IMPRESSION: Large right paratracheal mass also demonstrated on the CT scan of 10/24/2020. Interstitial lower lobe pulmonary infiltrates. No obvious heart failure.
[2020-11-26 03:24] LABS: ALT 12 U/L (4-34); AST 19 U/L (14-36); African American GFR (CKD) 67 (>60 ml/min/1.73 sqM); Albumin 4.1 g/dL (3.5-5.0); Alcohol <10 mg/dL; Alkaline Phosphatase 43 U/L (38-126); Anion Gap 9 mmol/L; Blood Urea Nitrogen 29 mg/dL (7-17); Calcium 8.9 mg/dL (8.4-10.2); Carbon Dioxide 20 mmol/L (22-30); Chloride 107 mmol/L (98-107); Glucose 133 mg/dL (74-99); Non-African American GFR(CKD) 58 (>60 ml/min/1.73 sqM); Potassium 4.9 mmol/L (3.5-5.1); Sodium 136 mmol/L (137-145); Total Bilirubin 0.3 mg/dL (0.2-1.3); Total Protein 7.7 g/dL (6.3-8.2)
[2020-11-26 03:36] LABS: INR 0.9 (<1.2); Partial Thromboplastin Time 27.3 sec (22.0-30.0); Prothrombin Time 10.1 sec (9.0-12.0)
--- NOTE | 2020-11-26 03:41 | CT ---
EXAMINATION TYPE: CT brain andrea wo con DATE OF EXAM: 11/26/2020 COMPARISON: 10/24/[address] scan HISTORY: fall/trauma. prior on PACS CT DLP: 1949.7 mGycm Automated exposure control for dose reduction was used. Images of the brain obtained without contrast. There is cerebral cortical atrophy. There is patchy hypodensity in the periventricular white matter. There is no mass effect nor midline shift. There is no sign of intracranial hemorrhage. Calvarium is intact. The skull base is intact. There is normal aeration of the mastoid sinuses. The cervical vertebra show some straightening. There is degenerative disc space narrowing at C5-6 wit h spurring of the endplates. Posterior elements are intact. There is no compression fracture. There i s posterior endplate spur formation and relative spinal stenosis at C5-6. IMPRESSION: Cerebral atrophy and chronic small vessel ischemia. No acute intracranial abnormality. There is some asymmetric enlargement of the right lateral ventricle compared to the left consistent with asymmetric atrophy. No change compared to old exam. Spondylotic changes in the cervical spine mainly at C5-6. No fracture.
[2020-11-26] MEDS ORDERED: ACETAMINOPHEN TAB 325 MG TAB PO STA (04:32)
[2020-11-26 05:57] LABS: Appearance,Urine Clear (Clear); Bacteria,Urine Many /hpf; Bilirubin,Urine Negative (Negative); Blood,Urine Trace (Negative); Budding Yeast,Urine Occasional /hpf; Color,Urine Light Yellow; Glucose,Urine (UA) Negative (Negative); Hyaline Casts,Urine 13 /lpf (0-2); Ketones,Urine Negative (Negative); Leukocyte Esterase,Urine Large (Negative); Mucus,Urine Rare /hpf; Nitrite,Urine Positive (Negative); Protein,Urine Trace (Negative); RBC,Urine 2 /hpf (0-5); Specific Gravity,Urine 1.023 (1.001-1.035); Squamous Epithelial Cell,Urine <1 /hpf (0-4); Urobilinogen,Urine <2.0 mg/dL (<2.0); WBC,Urine 26 /hpf (0-5)
[2020-11-26] MEDS ORDERED: SULFAMETHOX-TMP 800-160MG 1 EACH TAB PO STA (06:27)
== END 2020-11-26 06:51 | disposition home or self-care (01) ==
LOC: EC 02:48
DX: S09.90XA Unspecified injury of head, initial encounter (principal); I11.0 Hypertensive heart disease with heart failure; I50.9 Heart failure, unspecified; M19.90 Unspecified osteoarthritis, unspecified site; Z79.01 Long term (current) use of anticoagulants; Z79.51 Long term (current) use of inhaled steroids; Z79.52 Long term (current) use of systemic steroids; Z79.82 Long term (current) use of aspirin; Z79.899 Other long term (current) drug therapy; Z87.891 Personal history of nicotine dependence; Z88.0 Allergy status to penicillin; Z95.0 Presence of cardiac pacemaker; Z82.49 Family history of ischemic heart disease and other diseases of the circulatory system; W07.XXXA Fall from chair, initial encounter; Y92.009 Unspecified place in unspecified non-institutional (private) residence as the place of occurrence of the external cause
CPT/HCPCS: 36415; 93005; 86900; 86901; 80053; 83605; 84484; 85025; 85610; 85730; 86850; 81001; 71045; 72125; 70450; 99285; G0480; 80320

== ENCOUNTER 2020-11-30 19:54 | Inpatient (IN) | payer MEDICARE, BC ==
--- NOTE | 2020-11-30 22:04 | XR ---
EXAMINATION TYPE: XR chest 2V DATE OF EXAM: 11/30/2020 COMPARISON: 11/26/2020 HISTORY: 70 years Female. STUDY INDICATION GIVEN: difficulty breathing . TECHNIQUE: Frontal and lateral chest radiograph IMPRESSION: Cardiac device over the left chest wall is again seen and the leads appear stable in position. There is similar opacity in the right upper paratracheal/right mediastinal region which has not beckford ed in appearance and may represent a mediastinal mass or right upper lobe mass. There is marked decrease in bibasilar and interstitial opacities in comparison to prior. No pneumothorax or pleural effusion seen. Heart is mildly enlarged but not changed in appearance since prior. No acute osseous abnormality seen.
--- NOTE | 2020-11-30 22:16 | ED ---
SOB HPI - General Source: patient, RN notes reviewed, old records reviewed Mode of arrival: wheelchair Limitations: no limitations <Nadia Suazo - Last Filed: 11/30/20 22:13> <Tyrone Bran - Last Filed: 12/01/20 01:39> - General Chief Complaint: Shortness of Breath Stated Complaint: SOB Time Seen by Provider: 11/30/20 20:30 - History of Present Illness Initial Comments: Patient is a 70-year-old female with history of lung cancer, heart failure, hypertension, presenting to the emergency Department with complaints of increased shortness of breath over the past 3-4 days. She has oxygen at home, s ometimes uses 2 L but not very often. She states usually at rest and short walks around the house she is fine. Over the past 3-4 days she has been really short of breath, having to use her oxygen consistently. She was here 5 days ago after she had fallen at home. She's had no falls since. She denies any fevers or chills, she does have a mild cough. She denies any chest pain, no abdominal pains, nausea or vomiting. Patient states she does have history of a small pleural effusion, her oncologist had plans to do a biopsy of the fluid soon. She denies history of blood clots, she is on a Eliquis. She denies any leg pain, no increase in leg swelling. Patient has no further complaints at this time. Upon arrival to the ER, her vitals are stable, currently on 2 L at 98%. (Nadia Suazo) - Related Data Home Medications Medication Instructions Recorded Confirmed Aspirin 81 mg PO DAILY 07/27/13 11/30/20 Apixaban [Eliquis] 5 mg PO BID 11/21/20 11/30/20 Glycopyrrolate/Formoterol Fum 2 puff INHALATION RT-BID 11/21/20 11/30/20 [Bevespi Aerosphere Inhaler] Ipratropium-Albuterol Nebulize 3 ml INHALATION RT-QID PRN 11/21/20 11/30/20 [Duoneb 0.5 mg-3 mg/3 ml Soln] Sacubitril/Valsartan [Entresto 24 1 tab PO BID 11/21/20 11/30/20 mg-26 mg Tablet] Famotidine 40 mg PO W/SUPPER 11/30/20 11/30/20 Previous Rx's Medication Instructions Recorded Spironolactone [Aldactone] 25 mg PO DAILY #30 tab 01/12/20 Allergies Allergy/AdvReac Type Severity Reaction Status Date / Time losartan [Losartan] Allergy Severe Rash/Hives Verified 11/30/20 23:03 Penicillins Allergy Severe Rash/Hives Verified 11/30/20 23:03 cortisone [Cortisone] AdvReac Severe flushed Verified 11/30/20 23:03 skin, depression Tetanus Vaccines and Toxoid AdvReac Severe huge Verified 11/30/20 23:03 [Tetanus Vaccines & Toxoid] localized swelling Review of Systems ROS Other: All systems not noted in ROS Statement are negative. <Nadia Suazo - Last Filed: 11/30/20 22:13> ROS Other: All systems not noted in ROS Statement are negative. <Tyrone Bran - Last Filed: 12/01/20 01:39> ROS Statement: Those systems with pertinent positive or pertinent negative responses have been documented in the HPI. 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 Completed chemo and radiation. 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 History of Any Multi-Drug Resistant Organisms: None Reported Past Surgical History: Pacemaker Additional Past Surgical History / Comment(s): 2013 BiV AICD/generator change 2013 cardiac cath Past Anesthesia/Blood Transfusion Reactions: No Reported Reaction Additional Past Anesthesia/Blood Transfusion Reaction / Comment(s): Pt hsa never had general or spinal anesthesia. Type of Cardiac Device: Biventricular Pacemaker, AICD Device Placement Date:: 2013 Past Psychological History: No Psychological Hx Reported Smoking Status: Former smoker Past Alcohol Use History: None Reported Past Drug Use History: None Reported - Past Family History Brother(s) Family Medical History: Cancer Additional Family Medical History / Comment(s): pancreatic cancer Father Family Medical History: CVA/TIA, Hypertension Additional Family Medical History / Comment(s): third degree block, stroke Mother Family Medical History: Hypertension <Nadia Suazo - Last Filed: 11/30/20 22:13> General Exam Limitations: no limitations <Nadia Suazo - Last Filed: 11/30/20 22:13> General appearance: alert, anxious, in distress, obese Head exam: Present: atraumatic, normocephalic, normal inspection Eye exam: Present: normal appearance, PERRL, EOMI. Absent: scleral icterus, conjunctival injection, periorbital swelling ENT exam: Present: normal exam, mucous membranes moist Neck exam: Present: normal inspection. Absent: tenderness, meningismus, lymphadenopathy Respiratory exam: Present: respiratory distress, wheezes, accessory muscle use, decreased breath sounds, prolonged expiratory. Absent: rales, rhonchi, stridor Cardiovascular Exam: Present: regular rate, normal rhythm, normal heart sounds. Absent: systolic murmur, diastolic murmur, rubs, gallop, clicks GI/Abdominal exam: Present: soft, normal bowel sounds. Absent: distended, tenderness, guarding, rebound, rigid Extremities exam: Present: normal inspection, full ROM, normal capillary refill. Absent: tenderness, pedal edema, joint swelling, calf tenderness Back exam: Present: normal inspection Neurological exam: Present: alert, oriented X3, CN II-XII intact Psychiatric exam: Present: normal affect, normal mood Skin exam: Present: warm, dry, intact, normal color. Absent: rash <Tyrone Bran - Last Filed: 12/01/20 01:39> - General Exam Comments Initial Comments: GENERAL: Patient is well-developed and well-nourished. Patient is nontoxic and in no acute distress, mildly labored breathing. HEAD: Atraumatic, normocephalic. Bruising noted to the right forehead, this is from a prior injury about 5 days ago. No hematoma. EYES: Pupils equal round and reactive to light, extraocular movements intact, sclera anicteric, conjunctiva are normal. Eyelids were unremarkable. ENT: TMs normal, nares patent, oropharynx clear without exudates. Moist mucous m embranes. NECK: Normal range of motion, supple without lymphadenopathy or JVD. LUNGS: Labored respirations with conversations, Breath sounds clear to auscultation bilaterally and equal. No wheezes rales or rhonchi. HEART: Regular rate and rhythm without murmurs, rubs or gallops. ABDOMEN: Soft, nontender, normoactive bowel sounds. No guarding, no rebound. No masses appreciated. : Deferred MUSCULOSKELETAL: Normal extremities with adequate strength and normal range of motion, no pitting or edema. No clubbing or cyanosis. NEUROLOGICAL: Patient is alert and oriented x 3. Motor and sensory are also intact. Cranial nerves II through XII grossly intact. Symmetrical smile. Normal speech, normal gait. PSYCH: Normal mood, normal affect. SKIN: Warm, Dry, normal turgor, no rashes or lesions noted. (Nadia Suazo) Course <Tyrone Bran - Last Filed: 12/01/20 01:39> Vital Signs 11/30/20 12/01/20 12/01/20 20:02 00:37 00:42 Temperature 98.0 F Pulse Rate 91 90 96 Respiratory 22 20 Rate Blood Pressure 139/65 151/85 O2 Sat by Pulse 98 100 Oximetry 12/01/20 00:55 Temperature Pulse Rate 98 Respiratory Rate Blood Pressure O2 Sat by Pulse Oximetry - Reevaluation(s) Reevaluation #1: 12/01/20 01:37 Medical record is reviewed (Tyrone Bran) Reevaluation #2: 12/01/20 01:37 Breathing is no longer improved, patient remains short of breath (Tyrone Bran) Reevaluation #3: 12/01/20 01:38 Patient family informed results and questions answered (Tyrone Bran) - Consultations Consultation #1: Spoke with sound who agrees to admit this patient (Tyrone Bran) Medical Decision Making - Lab Data Result diagrams: 11/30/20 22:25 11/30/20 22:25 - Radiology Data Radiology results: report reviewed (Chest x-ray and CT chest are relatively u nchanged from prior), image reviewed <Tyrone Bran - Last Filed: 12/01/20 01:39> - Medical Decision Making 70 female to the emergency department for evaluation of acute bronchitis coughing up green purulent discharge, place on antibiotics. She was and steroids. Patient be seen by pulmonology (Tyrone Bran) - Lab Data Lab Results 11/30/20 11/30/20 11/30/20 Range/Units 22:25 22:25 22:25 WBC 4.6 (3.8-10.6) k/uL RBC 3.76 L (3.80-5.40) m/uL Hgb 12.0 (11.4-16.0) gm/dL Hct 38.2 (34.0-46.0) % MCV 101.7 H (80.0-100.0) fL MCH 31.9 (25.0-35.0) pg MCHC 31.3 (31.0-37.0) g/dL RDW 13.9 (11.5-15.5) % Plt Count 233 (150-450) k/uL MPV 7.5 Neutrophils % 71 % Lymphocytes % 12 % Monocytes % 11 % Eosinophils % 2 % Basophils % 0 % Neutrophils # 3.3 (1.3-7.7) k/uL Lymphocytes # 0.6 L (1.0-4.8) k/uL Monocytes # 0.5 (0-1.0) k/uL Eosinophils # 0.1 (0-0.7) k/uL Basophils # 0.0 (0-0.2) k/uL Macrocytosis Slight PT 10.4 (9.0-12.0) sec INR 1.0 (<1.2) APTT 24.2 (22.0-30.0) sec Sodium 133 L (137-145) mmol/L Potassium 5.2 H (3.5-5.1) mmol/L Chloride 106 (98-107) mmol/L Carbon Dioxide 15 L (22-30) mmol/L Anion Gap 12 mmol/L BUN 23 H (7-17) mg/dL Creatinine 0.92 (0.52-1.04) mg/dL Est GFR (CKD-EPI)AfAm 72 (>60 ml/min/1.73 sqM) Est GFR (CKD-EPI)NonAf 63 (>60 ml/min/1.73 sqM) Glucose 119 H (74-99) mg/dL Plasma Lactic Acid Yousif (0.7-2.0) mmol/L Calcium 9.4 (8.4-10.2) mg/dL Magnesium 2.2 (1.6-2.3) mg/dL Total Bilirubin 0.5 (0.2-1.3) mg/dL AST 34 (14-36) U/L ALT 14 (4-34) U/L Alkaline Phosphatase 34 L (38-126) U/L Troponin I (0.000-0.034) ng/mL NT-Pro-B Natriuret Pep pg/mL Total Protein 8.1 (6.3-8.2) g/dL Albumin 4.2 (3.5-5.0) g/dL Coronavirus (PCR) (Not Detectd) 11/30/20 11/30/20 11/30/20 Range/Units 22:25 22:25 22:25 WBC (3.8-10.6) k/uL RBC (3.80-5.40) m/uL Hgb (11.4-16.0) gm/dL Hct (34.0-46.0) % MCV (80.0-100.0) fL MCH (25.0-35.0) pg MCHC (31.0-37.0) g/dL RDW (11.5-15.5) % Plt Count (150-450) k/uL MPV Neutrophils % % Lymphocytes % % Monocytes % % Eosinophils % % Basophils % % Neutrophils # (1.3-7.7) k/uL Lymphocytes # (1.0-4.8) k/uL Monocytes # (0-1.0) k/uL Eosinophils # (0-0.7) k/uL Basophils # (0-0.2) k/uL Macrocytosis PT (9.0-12.0) sec INR (<1.2) APTT (22.0-30.0) sec Sodium (137-145) mmol/L Potassium (3.5-5.1) mmol/L Chloride (98-107) mmol/L Carbon Dioxide (22-30) mmol/L Anion Gap mmol/L BUN (7-17) mg/dL Creatinine (0.52-1.04) mg/dL Est GFR (CKD-EPI)AfAm (>60 ml/min/1.73 sqM) Est GFR (CKD-EPI)NonAf (>60 ml/min/1.73 sqM) Glucose (74-99) mg/dL Plasma Lactic Acid Yousif 1.3 (0.7-2.0) mmol/L Calcium (8.4-10.2) mg/dL Magnesium (1.6-2.3) mg/dL Total Bilirubin (0.2-1.3) mg/dL AST (14-36) U/L ALT (4-34) U/L Alkaline Phosphatase (38-126) U/L Troponin I <0.012 (0.000-0.034) ng/mL NT-Pro-B Natriuret Pep 329 pg/mL Total Protein (6.3-8.2) g/dL Albumin (3.5-5.0) g/dL Coronavirus (PCR) (Not Detectd) 11/30/20 Range/Units 22:25 WBC (3.8-10.6) k/uL RBC (3.80-5.40) m/uL Hgb (11.4-16.0) gm/dL Hct (34.0-46.0) % MCV (80.0-100.0) fL MCH (25.0-35.0) pg MCHC (31.0-37.0) g/dL RDW (11.5-15.5) % Plt Count (150-450) k/uL MPV Neutrophils % % Lymphocytes % % Monocytes % % Eosinophils % % Basophils % % Neutrophils # (1.3-7.7) k/uL Lymphocytes # (1.0-4.8) k/uL Monocytes # (0-1.0) k/uL Eosinophils # (0-0.7) k/uL Basophils # (0-0.2) k/uL Macrocytosis PT (9.0-12.0) sec INR (<1.2) APTT (22.0-30.0) sec Sodium (137-145) mmol/L Potassium (3.5-5.1) mmol/L Chloride (98-107) mmol/L Carbon Dioxide (22-30) mmol/L Anion Gap mmol/L BUN (7-17) mg/dL Creatinine (0.52-1.04) mg/dL Est GFR (CKD-EPI)AfAm (>60 ml/min/1.73 sqM) Est GFR (CKD-EPI)NonAf (>60 ml/min/1.73 sqM) Glucose (74-99) mg/dL Plasma Lactic Acid Yousif (0.7-2.0) mmol/L Calcium (8.4-10.2) mg/dL Magnesium (1.6-2.3) mg/dL Total Bilirubin (0.2-1.3) mg/dL AST (14-36) U/L ALT (4-34) U/L Alkaline Phosphatase (38-126) U/L Troponin I (0.000-0.034) ng/mL NT-Pro-B Natriuret Pep pg/mL Total Protein (6.3-8.2) g/dL Albumin (3.5-5.0) g/dL Coronavirus (PCR) Not Detected (Not Detectd) Disposition <Nadia Suazo - Last Filed: 11/30/20 22:13> Is patient prescribed a controlled substance at d/c from ED?: No <Tyrone Bran - Last Filed: 12/01/20 01:39> Clinical Impression: Tracheobronchitis, Small cell lung cancer, right upper lobe, Hx of cancer of lung, Acute exacerbation of chronic obstructive pulmonary disease Disposition: ADMITTED IP TO THIS HOSP Condition: Fair Referrals: Arian Forrest MD [Primary Care Provider] - 1-2 days
[2020-11-30 22:51] LABS: Albumin 4.2 g/dL (3.5-5.0); Calcium 9.4 mg/dL (8.4-10.2); Magnesium 2.2 mg/dL (1.6-2.3); Potassium 5.2 mmol/L (3.5-5.1); Total Bilirubin 0.5 mg/dL (0.2-1.3); Total Protein 8.1 g/dL (6.3-8.2)
[2020-11-30 23:13] LABS: Partial Thromboplastin Time 24.2 sec (22.0-30.0); Prothrombin Time 10.4 sec (9.0-12.0)
[2020-11-30 23:14] LABS: Basophils % (A) 0 %; Eosinophils # (A) 0.1 k/uL (0-0.7); Eosinophils % (A) 2 %; HCT 38.2 % (34.0-46.0); Lymphocytes # (A) 0.6 k/uL (1.0-4.8); Lymphocytes % (A) 12 %; MCH 31.9 pg (25.0-35.0); MCHC 31.3 g/dL (31.0-37.0); MCV 101.7 fL (80.0-100.0); Macrocytosis Slight; Mean Platelet Volume 7.5; Monocytes # (A) 0.5 k/uL (0-1.0); Monocytes % (A) 11 %; Neutrophils # (A) 3.3 k/uL (1.3-7.7); Neutrophils % (A) 71 %; Platelet Count 233 k/uL (150-450); RBC 3.76 m/uL (3.80-5.40); RDW 13.9 % (11.5-15.5); WBC 4.6 k/uL (3.8-10.6)
[2020-12-01] MEDS ORDERED: SODIUM CHLORIDE 0.9% 1,000 ML IV STA ×2 (00:11→01:34)
[2020-12-01] MEDS ORDERED: IPRATROPIUM-ALBUTEROL 3 ML NEB INHALATION STA (00:11)
--- NOTE | 2020-12-01 00:58 | CT ---
EXAMINATION TYPE: CT angio chest DATE OF EXAM: 12/01/2020 COMPARISON: Chest CT scan 10/24/2020 HISTORY: chest pain. SOB. prior CT chest on PACS CT DLP: 875.7 mGycm Automated exposure control for dose reduction was used. CONTRAST: Performed with IV Contrast, patient injected with 100ml mL of Isovue 370. There are 3-D post processed images. There is 3.6 cm right paratracheal partly calcified mass. There is extensive consolidation in the med ial right upper lobe adjacent to the mediastinum. This measures 7 x 2 cm. Thoracic aorta is intact. T here is no aneurysm or dissection. The ascending aorta measures 3.6 cm. Pulmonary arteries are intact. There are no filling defects. The left lung is clear of infiltrate. Th ere is small right pleural effusion. The ascending aorta measures 3.7 cm There is degenerative spurring in the thoracic spine. There is no compression fracture. Sternum is in tact. IMPRESSION: No evidence of pulmonary embolism. Masslike consolidation and atelectasis medial right upper lobe with mediastinal peritracheal mass. Th is appears overall not significantly changed in size compared to recent CT scan.
[2020-12-01] MEDS ORDERED: SODIUM CHLORIDE 0.9% 500 ML 500 ML IV STA (01:34)
[2020-12-01] MEDS ORDERED: ALBUTEROL NEBULIZED 2.5 MG/3 ML INHALATION STA (01:34)
[2020-12-01] MEDS ORDERED: methylPREDNISolone SOD SUCCI 125 MG/2 ML VIAL IV STA (01:34)
[2020-12-01] MEDS ORDERED: MORPHINE SULFATE 2 MG/ML SYRINGE IVP STA (01:34)
[2020-12-01] MEDS ORDERED: DEXTROSE 50% SYRINGE 50 ML IVP STA (01:34)
[2020-12-01] MEDS ORDERED: SODIUM BICARB 8.4% 50 ML SYR (1 MEQ/ML) IV STA (01:34)
[2020-12-01] MEDS ORDERED: LORazepam 2 MG/ML INJ IV STA (01:34)
[2020-12-01] MEDS ORDERED: LORazepam 2 MG/ML INJ IV PRN (01:34)
[2020-12-01] MEDS ORDERED: INSULIN REGULAR 100 UNIT/ML VIAL (IV) IV ONE (01:34)
[2020-12-01] MEDS ORDERED: ONDANSETRON 4 MG/2 ML VIAL IVP PRN (01:36)
[2020-12-01] MEDS ORDERED: AZITHROMYCIN 500 MG in SODIUM CHLORIDE 0.9% 250 ML IVPB STA (01:36)
[2020-12-01] MEDS ORDERED: NALOXONE 0.4 MG/ML 1 ML VIAL IV PRN (01:36)
--- NOTE | 2020-12-01 05:43 | P.HPIM ---
History of Present Illness H&P Date: 12/01/20 Chief Complaint: SOB 70-year-old female with lung cancer, systolic congestive heart failure, hypertension Patient is sleeping and tired refuse to wake up, history was obtained by discussing the case with the ER Patient comes in due to worsening shortness of breath which has been progressive over the past few days normally at baseline she would use 2 L nasal cannula off- and-on as needed however she is able to take short walks around the house. This has been progressing over the past 4 days she's been very short of breath and not walk and having increased oxygen requirement where she is using her supplemental oxygen all the time. So she presented to the emergency department seeking help. Reports that she is using her oxygen all the time denies any fevers or chills denies any nausea vomiting denies any chest pain Patient is on Eliquis however she denied any blood clots in the past this is not clear why she is on Eliquis Patient tested negative for Covid CT angios chest showed no acute PE however did show masslike consolidation right upper lobe unchanged compared to recent CAT scan from a year ago, potassium slightly elevated, no leukocytosis, no fever Review of Systems ROS unobtainable: due to mental status Past Medical History Past Medical History: Cancer, Heart Failure, Hypertension, Osteoarthritis (OA), Pneumonia, Syncope Additional Past Medical History / Comment(s): P malignant HTN with pulmonary vascular congestion/R upper lung mass. Completed chemo and radiation. 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 History of Any Multi-Drug Resistant Organisms: None Reported Past Surgical History: Pacemaker Additional Past Surgical History / Comment(s): 2013 BiV AICD/generator change 2013 cardiac cath Past Anesthesia/Blood Transfusion Reactions: No Reported Reaction Additional Past Anesthesia/Blood Transfusion Reaction / Comment(s): Pt hsa never had general or spinal anesthesia. Type of Cardiac Device: Biventricular Pacemaker, AICD Device Placement Date:: 2013 Past Psychological History: No Psychological Hx Reported Additional Psychological History / Comment(s): Pt resides alone. She is independent. Smoking Status: Former smoker Past Alcohol Use History: None Reported Additional Past Alcohol Use History / Comment(s): Pt started smoking in 1964 and quit in 2012. Past Drug Use History: None Reported - Past Family History Brother(s) Family Medical History: Cancer Additional Family Medical History / Comment(s): pancreatic cancer Father Family Medical History: CVA/TIA, Hypertension Additional Family Medical History / Comment(s): third degree block, stroke Mother Family Medical History: Hypertension Medications and Allergies Home Medications Medication Instructions Recorded Confirmed Type Aspirin 81 mg PO DAILY 07/27/13 11/30/20 History Spironolactone [Aldactone] 25 mg PO DAILY #30 tab 01/12/20 11/30/20 Rx Apixaban [Eliquis] 5 mg PO BID 11/21/20 11/30/20 History Glycopyrrolate/Formoterol Fum 2 puff INHALATION RT-BID 11/21/20 11/30/20 History [Bevespi Aerosphere Inhaler] Ipratropium-Albuterol Nebulize 3 ml INHALATION RT-QID PRN 11/21/20 11/30/20 History [Duoneb 0.5 mg-3 mg/3 ml Soln] Sacubitril/Valsartan [Entresto 24 1 tab PO BID 11/21/20 11/30/20 History mg-26 mg Tablet] Famotidine 40 mg PO W/SUPPER 11/30/20 11/30/20 History Allergies Allergy/AdvReac Type Severity Reaction Status Date / Time losartan [Losartan] Allergy Severe Rash/Hives Verified 11/30/20 23:03 Penicillins Allergy Severe Rash/Hives Verified 11/30/20 23:03 cortisone [Cortisone] AdvReac Severe flushed Verified 11/30/20 23:03 skin, depression Tetanus Vaccines and Toxoid AdvReac Severe huge Verified 11/30/20 23:03 [Tetanus Vaccines & Toxoid] localized swelling Physical Exam Vitals: Vital Signs Temp Pulse Resp BP Pulse Ox 12/01/20 02:59 98 17 132/74 98 12/01/20 02:19 108 H 12/01/20 02:07 101 H 12/01/20 02:00 98 22 96 12/01/20 00:55 98 12/01/20 00:42 96 20 151/85 100 12/01/20 00:37 90 11/30/20 20:02 98.0 F 91 22 139/65 98 Intake and Output 11/30/20 11/30/20 12/01/20 14:59 22:59 06:59 Other: Weight 130.635 kg 130.635 kg Very limited exam patient refuses to wake up and cooperate with exam Gen. exam patient laying comfortable in bed she has a bruise over the right forehead she seems to be sleeping comfortably Lungs good breath sounds bilaterally no wheezing or rhonchi Cardiovascular equal strong pulses bilaterally over the radial artery, heart normal S1 and S2 regular rate and rhythm no murmurs, no peripheral edema Results CBC & Chem 7: 11/30/20 22:25 11/30/20 22:25 Labs: Abnormal Lab Results - Last 24 Hours (Table) 11/30/20 11/30/20 Range/Units 22:25 22:25 RBC 3.76 L (3.80-5.40) m/uL MCV 101.7 H (80.0-100.0) fL Lymphocytes # 0.6 L (1.0-4.8) k/uL Sodium 133 L (137-145) mmol/L Potassium 5.2 H (3.5-5.1) mmol/L Carbon Dioxide 15 L (22-30) mmol/L BUN 23 H (7-17) mg/dL Glucose 119 H (74-99) mg/dL Alkaline Phosphatase 34 L (38-126) U/L Thrombosis Risk Factor Assmnt - Choose All That Apply Any of the Below Risk Factors Present?: Yes Each Factor Represents 1 point: Obesity (BMI >25) Other Risk Factors: Yes Each Risk Factor Represents 2 Points: Age 61-74 years Other congenital or acquired thrombophilia - If yes, enter type in comment: No Thrombosis Risk Factor Assessment Total Risk Factor Score: 3 Thrombosis Risk Factor Assessment Level: Moderate Risk Assessment and Plan Assessment: Acute worsening shortness of breath multifactorial secondary to underlying lung cancer, COPD, rule out pneumonia Supplemental oxygen as needed Follow-up cultures patient was started on antibiotics in the ED Systemic steroids breathing treatments Supportive care Supplemental oxygen Pulmonary evaluation Mild hyperkalemia Patient given potassium lowering cocktail Follow-up on potassium level Chronic systolic CHF status post AICD currently compensated Hypertension resume home medications Hyperlipidemia resume statin Small cell lung cancer continue outpatient follow-up DVT prophylaxis patient on Eliquis unknown reason no reported history of blood clots Anticipated length of stay more than 2 midnights Anticipated discharge home
[2020-12-01] MEDS ORDERED: methylPREDNISolone SOD SUCCI 125 MG/2 ML VIAL IV SCH ×2 (06:00→08:00)
[2020-12-01] MEDS ORDERED: IPRATROPIUM 0.5 MG/2.5 ML NEBU INHALATION SCH (08:00)
[2020-12-01] MEDS ORDERED: ALBUTEROL NEBULIZED 2.5 MG/3 ML INHALATION SCH (08:00)
[2020-12-01] MEDS: FORMOTEROL FUMARATE 20 MCG/2 ML NEBU INHALATION SCH ×2 (08:08→21:27)
[2020-12-01] MEDS: APIXABAN 5 MG TAB PO SCH ×2 (08:19→22:06)
[2020-12-01] MEDS: SPIRONOLACTONE 25 MG TAB PO SCH (08:19)
[2020-12-01] MEDS: ASPIRIN 81 MG PO SCH (08:19)
[2020-12-01 08:24] LABS: African American GFR (CKD) 83 (>60 ml/min/1.73 sqM); Anion Gap 9 mmol/L; Blood Urea Nitrogen 19 mg/dL (7-17); Calcium 8.5 mg/dL (8.4-10.2); Carbon Dioxide 17 mmol/L (22-30); Chloride 108 mmol/L (98-107); Glucose 144 mg/dL (74-99); Non-African American GFR(CKD) 72 (>60 ml/min/1.73 sqM); Sodium 134 mmol/L (137-145)
[2020-12-01] MEDS: SACUBITRIL/VALSARTAN 24 MG-26 MG TABLET PO SCH ×2 (08:48→22:12)
[2020-12-01] MEDS ORDERED: PANTOPRAZOLE 40 MG/10 ML VIAL IV SCH (09:00)
[2020-12-01 10:52] LABS: Basophils # (A) 0.01 X 10*3/uL (0.00-0.10); Basophils % (A) 0.2 %; Eosinophils # (A) 0.01 X 10*3/uL (0.04-0.35); Eosinophils % (A) 0.2 %; HCT 33.5 % (37.2-46.3); HGB 10.7 g/dL (12.0-15.0); Lymphocytes # (A) 0.55 X 10*3/uL (0.90-5.00); Lymphocytes % (A) 9.3 %; MCH 31.9 pg (27.0-32.0); MCHC 31.9 g/dL (32.0-37.0); Mean Platelet Volume 9.3 fL (9.5-12.2); Monocytes # (A) 0.31 X 10*3/uL (0.20-1.00); Monocytes % (A) 5.2 %; Neutrophils # (A) 5.03 X 10*3/uL (1.80-7.70); Neutrophils % (A) 84.6 %; Platelet Count 236 X 10*3/uL (140-440); RBC 3.35 X 10*6/uL (4.10-5.20); RDW 14.1 % (11.5-14.5); WBC 5.94 X 10*3/uL (4.50-10.00)
[2020-12-01] MEDS: IPRATROPIUM-ALBUTEROL 3 ML NEB INHALATION SCH ×3 (11:25→21:27)
--- NOTE | 2020-12-01 13:52 | P.CNPUL ---
History of Present Illness Consult date: 12/01/20 Requesting physician: Joey Srinivasan Reason for consult: dyspnea, abnormal CXR/CT Chief complaint: Shortness of breath History of present illness: This is a 70-year-old female patient with a known history of small cell lung cancer with previous chemo radiation treatment completed 1 year ago. She also has a history of ischemic cardiomyopathy status post IV AICD placement, morbid obesity, former smoker, hypertension, osteoarthritis. She presented here to the emergency room about 5 days ago after developing a syncopal episode while sitting on the toilet. She fell and hit her head. He presented here again yesterday with increasing shortness of breath over the past 3-4 days. His x-ray revealed similar opacity in the right upper paratracheal/right mediastinal region which has not changed compared to previous of 11/26/2020. There is marketed decrease in bibasilar interstitial a parasitic disease. No pneumothorax or pleural effusion. Heart slightly enlarged. CT angiogram revealed evidence of pulmonary embolism. There is masslike consolidation and atelectasis in the medial right upper lobe with mediastinal. Tracheal mass. Not significantly changed compared to previous CAT scan in September 2020. White count 5.9. Hemoglobin 10.7. Sodium 134. Potassium 5.0. Bicarb 17. Creati nine 0.82. Troponins were negative 3. ProBNP 329. Castañeda virus by PCR not detected. In today in consultation on the regular medical floor. She is currently sitting up in bed. Awake and alert in no acute distress. RD breathing quite a bit better today compared to yesterday. Maintaining O2 sa turations in the mid 90s on 2 L/m per nasal cannula. She does have home O2 as well. Afebrile. Hemodynamically stable. She's been initiated on DuoNeb inhalations, Pulmicort and Perforomist inhalations, IV Solu-Medrol. Anticoagulated with Eliquis. Antibiotics in the form of azithromycin. Review of Systems REVIEW OF SYSTEMS: CONSTITUTIONAL: Denies any recent significant weight loss or weight gain. EYES: Denies change in vision. EARS, NOSE, MOUTH, THROAT: Denies headaches, denies sore throat. CARDIOVASCULAR: Denies chest pain, palpitations or syncopal episodes. RESPIRATORY: Positive for shortness of breath, no cough, congestion or hemoptysis. GASTROINTESTINAL: Denies change in appetite, denies abdominal pain GENITOURINARY: Denies hematuria, denies infections. MUSKULOSKELETAL: Denies pain, denies swelling. INTEGUMENTARY: Denies rash, denies eczema. NEUROLOGICAL: Denies recent memory loss, no recent seizure activity. PSYCHIATRIC: Denies anxiety, denies depression. HEMATOLOGIC/LYMPHATIC: Denies anemia, denies enlarged lymph nodes. 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 Completed chemo and radiation. 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 History of Any Multi-Drug Resistant Organisms: None Reported Past Surgical History: Pacemaker Additional Past Surgical History / Comment(s): 2013 BiV AICD/generator change 2018, 2013 cardiac cath Past Anesthesia/Blood Transfusion Reactions: No Reported Reaction Additional Past Anesthesia/Blood Transfusion Reaction / Comment(s): Pt hsa never had general or spinal anesthesia. Type of Cardiac Device: Biventricular Pacemaker, AICD Device Placement Date:: 2013 Past Psychological History: No Psychological Hx Reported Additional Psychological History / Comment(s): Pt resides alone. She is independent. Smoking Status: Former smoker Past Alcohol Use History: None Reported Additional Past Alcohol Use History / Comment(s): Pt started smoking in 1965 and quit in 2012. Past Drug Use History: None Reported - Past Family History Brother(s) Family Medical History: Cancer Additional Family Medical History / Comment(s): pancreatic cancer Father Family Medical History: CVA/TIA, Hypertension Additional Family Medical History / Comment(s): third degree block, stroke Mother Family Medical History: Hypertension Medications and Allergies Home Medications Medication Instructions Recorded Confirmed Type Aspirin 81 mg PO DAILY 07/27/13 11/30/20 History Spironolactone [Aldactone] 25 mg PO DAILY #30 tab 01/12/20 11/30/20 Rx Apixaban [Eliquis] 5 mg PO BID 11/21/20 11/30/20 History Glycopyrrolate/Formoterol Fum 2 puff INHALATION RT-BID 11/21/20 11/30/20 History [Bevespi Aerosphere Inhaler] Ipratropium-Albuterol Nebulize 3 ml INHALATION RT-QID PRN 11/21/20 11/30/20 History [Duoneb 0.5 mg-3 mg/3 ml Soln] Sacubitril/Valsartan [Entresto 24 1 tab PO BID 11/21/20 11/30/20 History mg-26 mg Tablet] Famotidine 40 mg PO W/SUPPER 11/30/20 11/30/20 History Allergies Allergy/AdvReac Type Severity Reaction Status Date / Time losartan [Losartan] Allergy Severe Rash/Hives Verified 11/30/20 23:03 Penicillins Allergy Severe Rash/Hives Verified 11/30/20 23:03 cortisone [Cortisone] AdvReac Severe flushed Verified 11/30/20 23:03 skin, depression Tetanus Vaccines and Toxoid AdvReac Severe huge Verified 11/30/20 23:03 [Tetanus Vaccines & Toxoid] localized swelling Physical Exam Vitals: Vital Signs Temp Pulse Pulse Pulse Resp BP BP 12/01/20 11:37 100 12/01/20 11:25 100 12/01/20 08:37 108 H 12/01/20 08:25 112 H 12/01/20 08:24 112 H 12/01/20 08:09 116 H 12/01/20 07:47 97.7 F 53 L 22 142/56 12/01/20 03:30 97.6 F 118 H 16 153/82 12/01/20 02:59 98 17 132/74 12/01/20 02:19 108 H 12/01/20 02:07 101 H 12/01/20 02:00 98 22 12/01/20 00:55 98 12/01/20 00:42 96 20 151/85 12/01/20 00:37 90 11/30/20 20:02 98.0 F 91 22 139/65 Pulse Ox 12/01/20 11:37 12/01/20 11:25 12/01/20 08:37 12/01/20 08:25 12/01/20 08:24 12/01/20 08:09 12/01/20 07:47 95 12/01/20 03:30 94 L 12/01/20 02:59 98 12/01/20 02:19 12/01/20 02:07 12/01/20 02:00 96 12/01/20 00:55 12/01/20 00:42 100 12/01/20 00:37 11/30/20 20:02 98 Intake and Output 11/30/20 12/01/20 12/01/20 22:59 06:59 14:59 Other: # Voids 1 Weight 130.635 kg 130.635 kg GENERAL EXAM: Alert, pleasant 70-year-old female, on 2 L nasal cannula, comfortable in no apparent distress. HEAD: Ecchymosis in the right forehead from previous fall. Normocephalic. EYES: Normal reaction of pupils, equal size. NOSE: Clear with pink turbinates. THROAT: No erythema or exudates. NECK: No masses, no JVD. CHEST: No chest wall deformity. LUNGS: Equal air entry with faint crackles in the posterior bases. CVS: S1 and S2 normal with no audible murmur, regular rhythm. ABDOMEN: No hepatosplenomegaly, normal bowel sounds, no guarding or rigidity. SPINE: No scoliosis or deformity SKIN: No rashes CENTRAL NERVOUS SYSTEM: No focal deficits, tone is normal in all 4 extremities. EXTREMITIES: There is no peripheral edema. No clubbing, no cyanosis. Peripheral pulses are intact. Results - Laboratory Findings CBC and BMP: 12/01/20 06:47 12/01/20 06:47 PT/INR, D-dimer PT 10.4 sec (9.0-12.0) 11/30/20 22:25 INR 1.0 (<1.2) 11/30/20 22:25 Abnormal lab findings: Abnormal Labs 11/30/20 11/30/20 12/01/20 22:25 22:25 06:47 RBC 3.76 L 3.35 L Hgb 10.7 L Hct 33.5 L MCV 101.7 H 100.0 H MCHC 31.9 L MPV 9.3 L Lymphocytes # 0.6 L 0.55 L Eosinophils # 0.01 L Sodium 133 L Potassium 5.2 H Chloride Carbon Dioxide 15 L BUN 23 H Glucose 119 H Alkaline Phosphatase 34 L 12/01/20 06:47 RBC Hgb Hct MCV MCHC MPV Lymphocytes # Eosinophils # Sodium 134 L Potassium Chloride 108 H Carbon Dioxide 17 L BUN 19 H Glucose 144 H Alkaline Phosphatase - Diagnostic Findings Chest x-ray: image reviewed CT scan - chest: image reviewed Assessment and Plan Assessment: 1 Acute on chronic hypoxemic respiratory failure secondary to acute exacerbation of systolic congestive heart failure, acute exacerbation of chronic obstructive pulmonary disease, underlying lung cancer 2 Recent fall with head trauma 3 Cardiomyopathy with impaired left ventricular systolic function with ejection fraction 40-45%, status post biventricular AICD placement 4 Hypertension 5 Obesity 6 History of small cell lung cancer diagnosed in March 2019, completed chemoradiation approximately 1 year ago 7 Former smoker 8 Previous pleural effusion status post thoracentesis Plan: The patient was seen and evaluated by Dr. Oconnell Chest x-ray, CAT scans and labs reviewed Stable from the pulmonary standpoint Continue bronchodilators, IV Solu-Medrol, empiric antibiotics Anticoagulated with Eliquis We will continue to follow and make further recommendations based on her clinical status I, the cosigning physician, performed a history & physical examination of the patient. Lungs sounds faint crackles in the posterior bases right greater than left. Maintaining good O2 saturations in the 90s on 2 L/m per nasal cannula. I discussed the assessment and plan of care with my nurse practitioner, Ana Luisa Evangelista. I attest to the above consultation as dictated by her. Time with Patient: Greater than 30
[2020-12-01] MEDS: ACETAMINOPHEN TAB 325 MG TAB PO PRN ×2 (14:11→22:05)
--- NOTE | 2020-12-01 15:02 | P.PN ---
Progress Note - Text Progress Note Date: 12/01/20 I saw and evaluated the patient independently today. I agree with the documented assessment and plan by my colleague earlier this morning. Continue duo nebs, steroids, azithromycin. Regarding chest mass, patient will follow-up with Dr. Pugh with oncology for further recommendations. Agree with fluid neutral strategy. Appreciate pulmonary recommendations.
[2020-12-01] MEDS: FAMOTIDINE 20 MG TAB PO SCH (17:24)
[2020-12-01 21:03] LABS: Glucose,Whole Blood 152 mg/dL (75-99)
[2020-12-01] MEDS: BUDESONIDE 1 MG/2 ML NEBU INHALATION SCH (21:27)
[2020-12-01] MEDS: methylPREDNISolone SOD SUCCI 40 MG/ML 1 ML VIAL IV SCH (22:06)
[2020-12-02] MEDS: MORPHINE SULFATE 2 MG/ML SYRINGE IVP PRN ×2 (02:46→23:02)
[2020-12-02] MEDS: AZITHROMYCIN 500 MG in SODIUM CHLORIDE 0.9% 250 ML IVPB SCH (02:47)
[2020-12-02] MEDS: BUDESONIDE 1 MG/2 ML NEBU INHALATION SCH ×2 (07:25→19:38)
[2020-12-02] MEDS: IPRATROPIUM-ALBUTEROL 3 ML NEB INHALATION SCH ×4 (07:25→19:38)
[2020-12-02] MEDS: FORMOTEROL FUMARATE 20 MCG/2 ML NEBU INHALATION SCH ×2 (07:25→19:38)
[2020-12-02 07:28] LABS: Glucose,Whole Blood 155 mg/dL (75-99)
[2020-12-02 07:39] LABS: AST 33 U/L (14-36); African American GFR (CKD) 85 (>60 ml/min/1.73 sqM); Albumin/Globulin Ratio 1.1; Alkaline Phosphatase 39 U/L (38-126); Anion Gap 12 mmol/L; Blood Urea Nitrogen 19 mg/dL (7-17); Calcium 8.7 mg/dL (8.4-10.2); Carbon Dioxide 18 mmol/L (22-30); Chloride 107 mmol/L (98-107); Globulin 3.5 g/dL; Glucose 164 mg/dL (74-99); Magnesium 2.3 mg/dL (1.6-2.3); Non-African American GFR(CKD) 74 (>60 ml/min/1.73 sqM); Phosphorus 4.3 mg/dL (2.5-4.5); Potassium 4.7 mmol/L (3.5-5.1); Sodium 137 mmol/L (137-145); Total Bilirubin 0.3 mg/dL (0.2-1.3); Total Protein 7.5 g/dL (6.3-8.2)
[2020-12-02 07:45] LABS: Basophils % (A) 0 %; Eosinophils % (A) 0 %; HCT 36.8 % (34.0-46.0); HGB 11.5 gm/dL (11.4-16.0); Lymphocytes # (A) 0.9 k/uL (1.0-4.8); Lymphocytes % (A) 8 %; MCH 32.1 pg (25.0-35.0); MCHC 31.2 g/dL (31.0-37.0); MCV 102.8 fL (80.0-100.0); Macrocytosis Slight; Mean Platelet Volume 7.3; Monocytes # (A) 0.4 k/uL (0-1.0); Monocytes % (A) 4 %; Neutrophils # (A) 9.4 k/uL (1.3-7.7); Neutrophils % (A) 86 %; Platelet Count 303 k/uL (150-450); RBC 3.58 m/uL (3.80-5.40); RDW 14.6 % (11.5-15.5); WBC 10.9 k/uL (3.8-10.6)
[2020-12-02 07:49] LABS: ALT 21 U/L (4-34)
[2020-12-02] MEDS: PANTOPRAZOLE 40 MG TABLET PO SCH (08:14)
[2020-12-02] MEDS: methylPREDNISolone SOD SUCCI 40 MG/ML 1 ML VIAL IV SCH ×2 (08:14→20:59)
[2020-12-02] MEDS: APIXABAN 5 MG TAB PO SCH ×2 (08:14→20:59)
[2020-12-02] MEDS: SPIRONOLACTONE 25 MG TAB PO SCH (08:14)
[2020-12-02] MEDS: SACUBITRIL/VALSARTAN 24 MG-26 MG TABLET PO SCH ×2 (08:14→20:59)
[2020-12-02] MEDS: ASPIRIN 81 MG PO SCH (08:14)
[2020-12-02] MEDS ORDERED: FUROSEMIDE 10 MG/ML 4 ML VIAL IV STA (10:32)
[2020-12-02 11:39] LABS: Glucose,Whole Blood 160 mg/dL (75-99)
--- NOTE | 2020-12-02 11:51 | XR ---
EXAMINATION TYPE: XR chest 1V portable DATE OF EXAM: 12/02/2020 COMPARISON: Chest x-ray 11/30/2020, CT 12/01/2020 HISTORY: Dyspnea TECHNIQUE: Single frontal view of the chest is obtained. FINDINGS: Soft tissue mass and suprahilar and right paratracheal region is again noted, is volume los s in the right hemithorax. There is no focal air space opacity, pleural effusion, or pneumothorax see n. The cardiac silhouette size is stable. Patient is rotated. There is degenerated and the left pect oral region, leads in right atrium and ventricle. The osseous structures are intact. IMPRESSION: Mediastinal and right hilar mass
[2020-12-02] MEDS: INSULIN ASPART (NovoLOG) 100 UNIT/ML VIAL SQ SCH ×3 (11:58→22:07)
[2020-12-02] MEDS: ACETAMINOPHEN TAB 325 MG TAB PO PRN ×2 (11:58→17:50)
--- NOTE | 2020-12-02 12:43 | P.PN ---
Subjective Progress Note Date: 12/02/20 This is a 70-year-old female patient with a known history of small cell lung cancer with previous chemo radiation treatment completed 1 year ago. She also has a history of ischemic cardiomyopathy status post IV AICD placement, morbid obesity, former smoker, hypertension, osteoarthritis. She presented here to the emergency room about 5 days ago after developing a syncopal episode while sitting on the toilet. She fell and hit her head. He presented here again yesterday with increasing shortness of breath over the past 3-4 days. His x-ray revealed similar opacity in the right upper paratracheal/right mediastinal region which has not changed compared to previous of 11/26/2020. There is marketed decrease in bibasilar interstitial a parasitic disease. No pneumothorax or pleural effusion. Heart slightly enlarged. CT angiogram revealed evidence of pulmonary embolism. There is masslike consolidation and atelectasis in the medial right upper lobe with mediastinal. Tracheal mass. Not significantly changed compared to previous CAT scan in September 2020. White count 5.9. Hemoglobin 10.7. Sodium 134. Potassium 5.0. Bicarb 17. Creatinine 0.82. Troponins were negative 3. ProBNP 329. Castañeda virus by PCR not detected. In today in consultation on the regular medical floor. She is cu rrently sitting up in bed. Awake and alert in no acute distress. RD breathing quite a bit better today compared to yesterday. Maintaining O2 saturations in the mid 90s on 2 L/m per nasal cannula. She does have home O2 as well. Afebrile. Hemodynamically stable. She's been initiated on DuoNeb inhalations, Pulmicort and Perforomist inhalations, IV Solu-Medrol. Anticoagulated with Eliquis. Antibiotics in the form of azithromycin. The patient is seen today 12/02/2020 in follow-up on the regular medical floor. She is currently sitting up in a chair at the bedside. Awake and alert in no a cute distress. States she is feeling a bit more short of breath today compared to yesterday. Chest x-ray continues to show mediastinal and right hilar mass. No focal airspace opacity, pleural effusion or pneumothorax. Maintaining O2 saturations in the 90s on 2 L/m per nasal cannula. She's been afebrile. White count 10.9. Hemoglobin 11.5. Sodium 137. Potassium 4.7. Bicarb 18. Creatinine 0.80. Blood glucose 160. Continue on DuoNeb inhalations, Pulmicort and Perforomist inhalations, IV Solu-Medrol. Anticoagulated with Eliquis. Objective - Vital Signs Vital signs: Vital Signs Temp 97.7 F 12/02/20 08:00 Pulse 96 12/02/20 11:34 Resp 20 12/02/20 08:00 BP 169/78 12/02/20 08:00 Pulse Ox 94 L 12/02/20 08:00 Intake & Output 12/01/20 12/02/20 12/02/20 18:59 06:59 18:59 Intake Total 240 Balance 240 Intake: Intake, IV Titration 240 Amount Sodium Chloride 0.9% 1, 240 000 ml @ 130 mls/hr IV . Q7H42M STA Rx#:[id number] Other: # Voids 4 3 - Exam GENERAL EXAM: Alert, pleasant 70-year-old female, on 2 L nasal cannula, comfortable in no apparent distress. HEAD: Ecchymosis in the right forehead from previous fall. Normocephalic. EYES: Normal reaction of pupils, equal size. NOSE: Clear with pink turbinates. THROAT: No erythema or exudates. NECK: No masses, no JVD. CHEST: No chest wall deformity. LUNGS: Equal air entry with faint crackles in the posterior bases. CVS: S1 and S2 normal with no audible murmur, regular rhythm. ABDOMEN: No hepatosplenomegaly, normal bowel sounds, no guarding or rigidity. SPINE: No scoliosis or deformity SKIN: No rashes CENTRAL NERVOUS SYSTEM: No focal deficits, tone is normal in all 4 extremities. EXTREMITIES: There is no peripheral edema. No clubbing, no cyanosis. Peripheral pulses are intact. - Labs CBC & Chem 7: 12/02/20 06:56 12/02/20 06:56 Labs: Abnormal Lab Results - Last 24 Hours (Table) 12/01/20 12/02/20 12/02/20 Range/Units 21:01 06:56 06:56 WBC 10.9 H (3.8-10.6) k/uL RBC 3.58 L (3.80-5.40) m/uL MCV 102.8 H (80.0-100.0) fL Neutrophils # 9.4 H (1.3-7.7) k/uL Lymphocytes # 0.9 L (1.0-4.8) k/uL Carbon Dioxide 18 L (22-30) mmol/L BUN 19 H (7-17) mg/dL Glucose 164 H (74-99) mg/dL POC Glucose (mg/dL) 152 H (75-99) mg/dL 12/02/20 12/02/20 Range/Units 07:27 11:38 WBC (3.8-10.6) k/uL RBC (3.80-5.40) m/uL MCV (80.0-100.0) fL Neutrophils # (1.3-7.7) k/uL Lymphocytes # (1.0-4.8) k/uL Carbon Dioxide (22-30) mmol/L BUN (7-17) mg/dL Glucose (74-99) mg/dL POC Glucose (mg/dL) 155 H 160 H (75-99) mg/dL Assessment and Plan Assessment: 1 Acute on chronic hypoxemic respiratory failure secondary to acute exacerbation of systolic congestive heart failure, acute exacerbation of chronic obstructive pulmonary disease, underlying lung cancer 2 Recent fall with head trauma 3 Cardiomyopathy with impaired left ventricular systolic function with ejection fraction 40-45%, status post biventricular AICD placement 4 Hypertension 5 Obesity 6 History of small cell lung cancer diagnosed in March 2019, completed chemoradiation approximately 1 year ago 7 Former smoker 8 Previous pleural effusion status post thoracentesis Plan: The patient was seen and evaluated by Dr. Kourtney Cherry from the pulmonary standpoint Continue bronchodilators, IV Solu-Medrol, empiric antibiotics Anticoagulated with Eliquis Increase her activity as tolerated We will continue to follow I, the cosigning physician, performed a history & physical examination of the patient. Lungs sounds faint crackles in the posterior bases right greater than left. Maintaining good O2 saturations in the 90s on 2 L/m per nasal cannula. I discussed the assessment and plan of care with my nurse practitioner, Ana Luisa fletcher. I attest to the above note as dictated by her.
--- NOTE | 2020-12-02 15:19 | P.PN ---
Subjective Progress Note Date: 12/02/20 Pt is stable, but still wheezing. Sitting in chair resting comfortably. Dyspneic on exertion. Objective - Vital Signs Vital signs: Vital Signs Temp 97.6 F 12/02/20 14:00 Pulse 87 12/02/20 15:03 Resp 20 12/02/20 14:00 BP 155/70 12/02/20 14:00 Pulse Ox 96 12/02/20 14:00 Intake & Output 12/01/20 12/02/20 12/02/20 18:59 06:59 18:59 Intake Total 240 Balance 240 Intake: Intake, IV Titration 240 Amount Sodium Chloride 0.9% 1, 240 000 ml @ 130 mls/hr IV . Q7H42M STA Rx#:[id number] Other: # Voids 4 3 - Exam Gen: awake, alert HEENT: normocephalic, atraumatic, good hearing acuity, moist mucous membranes Resp: good air exchange, breathing comfortably with no accessory muscle use, diffuse wheezing in all lung marcus CVS: good distal perfusion x 4, regular rate and rhythm without murmurs GI: soft, NTTP, ND : no SPT, no CVAT, gastelum catheter not present MSK: no pitting edema, no clubbing Neuro: non-focal, moving all extremities Psych: cooperative, euthymic mood - Labs CBC & Chem 7: 12/02/20 06:56 12/02/20 06:56 Labs: Abnormal Lab Results - Last 24 Hours (Table) 12/01/20 12/02/20 12/02/20 Range/Units 21:01 06:56 06:56 WBC 10.9 H (3.8-10.6) k/uL RBC 3.58 L (3.80-5.40) m/uL MCV 102.8 H (80.0-100.0) fL Neutrophils # 9.4 H (1.3-7.7) k/uL Lymphocytes # 0.9 L (1.0-4.8) k/uL Carbon Dioxide 18 L (22-30) mmol/L BUN 19 H (7-17) mg/dL Glucose 164 H (74-99) mg/dL POC Glucose (mg/dL) 152 H (75-99) mg/dL 12/02/20 12/02/20 Range/Units 07:27 11:38 WBC (3.8-10.6) k/uL RBC (3.80-5.40) m/uL MCV (80.0-100.0) fL Neutrophils # (1.3-7.7) k/uL Lymphocytes # (1.0-4.8) k/uL Carbon Dioxide (22-30) mmol/L BUN (7-17) mg/dL Glucose (74-99) mg/dL POC Glucose (mg/dL) 155 H 160 H (75-99) mg/dL Assessment and Plan Assessment: Acute worsening shortness of breath multifactorial secondary to underlying lung cancer, COPD Supplemental oxygen as needed Follow-up cultures patient was started on antibiotics in the ED Systemic steroids breathing treatments Supportive care Supplemental oxygen Pulmonary evaluation Mild hyperkalemia Patient given potassium lowering cocktail Follow-up on potassium level Chronic systolic CHF status post AICD currently compensated Hypertension resume home medications Hyperlipidemia resume statin Small cell lung cancer continue outpatient follow-up DVT prophylaxis patient on Eliquis unknown reason no reported history of blood clots Anticipated length of stay more than 2 midnights Anticipated discharge home
[2020-12-02 16:37] LABS: Glucose,Whole Blood 134 mg/dL (75-99)
[2020-12-02] MEDS: FAMOTIDINE 20 MG TAB PO SCH (17:47)
[2020-12-02 20:27] LABS: Glucose,Whole Blood 138 mg/dL (75-99)
[2020-12-03] MEDS: AZITHROMYCIN 500 MG in SODIUM CHLORIDE 0.9% 250 ML IVPB SCH (03:23)
[2020-12-03] MEDS: IPRATROPIUM-ALBUTEROL 3 ML NEB INHALATION SCH ×4 (07:00→19:45)
[2020-12-03] MEDS: FORMOTEROL FUMARATE 20 MCG/2 ML NEBU INHALATION SCH ×2 (07:00→19:45)
[2020-12-03] MEDS: BUDESONIDE 1 MG/2 ML NEBU INHALATION SCH ×2 (07:00→19:45)
[2020-12-03 07:12] LABS: Glucose,Whole Blood 147 mg/dL (75-99)
[2020-12-03] MEDS: SPIRONOLACTONE 25 MG TAB PO SCH (08:30)
[2020-12-03] MEDS: PANTOPRAZOLE 40 MG TABLET PO SCH (08:30)
[2020-12-03] MEDS: methylPREDNISolone SOD SUCCI 40 MG/ML 1 ML VIAL IV SCH ×2 (08:30→21:37)
[2020-12-03] MEDS: ASPIRIN 81 MG PO SCH (08:30)
[2020-12-03] MEDS: INSULIN ASPART (NovoLOG) 100 UNIT/ML VIAL SQ SCH ×4 (08:30→21:35)
[2020-12-03] MEDS: APIXABAN 5 MG TAB PO SCH ×2 (08:30→21:37)
[2020-12-03] MEDS: SACUBITRIL/VALSARTAN 24 MG-26 MG TABLET PO SCH ×2 (08:31→21:38)
[2020-12-03] MEDS: ACETAMINOPHEN TAB 325 MG TAB PO PRN ×2 (08:39→15:36)
[2020-12-03 11:05] LABS: Glucose,Whole Blood 108 mg/dL (75-99)
[2020-12-03 11:42] LABS: Appearance,Urine Clear (Clear); Bilirubin,Urine Negative (Negative); Blood,Urine Negative (Negative); Color,Urine Light Yellow; Glucose,Urine (UA) Negative (Negative); Ketones,Urine Negative (Negative); Leukocyte Esterase,Urine Negative (Negative); Nitrite,Urine Negative (Negative); Protein,Urine Negative (Negative); Specific Gravity,Urine 1.015 (1.001-1.035); Urobilinogen,Urine <2.0 mg/dL (<2.0)
[2020-12-03 11:55] LABS: Basophils % (A) 0 %; Eosinophils % (A) 0 %; HCT 37.7 % (34.0-46.0); Lymphocytes # (A) 0.8 k/uL (1.0-4.8); Lymphocytes % (A) 7 %; MCH 31.7 pg (25.0-35.0); MCHC 31.9 g/dL (31.0-37.0); MCV 99.4 fL (80.0-100.0); Mean Platelet Volume 6.9; Monocytes # (A) 0.5 k/uL (0-1.0); Monocytes % (A) 5 %; Neutrophils # (A) 9.2 k/uL (1.3-7.7); Neutrophils % (A) 86 %; Platelet Count 295 k/uL (150-450); RBC 3.79 m/uL (3.80-5.40); RDW 14.4 % (11.5-15.5); WBC 10.6 k/uL (3.8-10.6)
[2020-12-03 11:57] LABS: African American GFR (CKD) 85 (>60 ml/min/1.73 sqM); Anion Gap 10 mmol/L; Blood Urea Nitrogen 26 mg/dL (7-17); Calcium 9.2 mg/dL (8.4-10.2); Carbon Dioxide 22 mmol/L (22-30); Chloride 103 mmol/L (98-107); Glucose 114 mg/dL (74-99); Magnesium 2.4 mg/dL (1.6-2.3); Non-African American GFR(CKD) 73 (>60 ml/min/1.73 sqM); Potassium 4.9 mmol/L (3.5-5.1); Sodium 135 mmol/L (137-145)
[2020-12-03] MEDS ORDERED: FUROSEMIDE 10 MG/ML 10 ML VIAL IV STA (12:34)
--- NOTE | 2020-12-03 12:55 | XR ---
EXAMINATION TYPE: XR chest 1V portable DATE OF EXAM: 12/03/2020 COMPARISON: Chest x-ray 12/02/2020 HISTORY: Worsening dyspnea TECHNIQUE: Single frontal view of the chest is obtained. FINDINGS: Findings are similar to prior exam. Volume loss again noted in the right hemithorax. Patie nt is rotated. IMPRESSION: Mediastinal mass, cardiomegaly, post instrumentation changes without interval change.
--- NOTE | 2020-12-03 13:41 | P.PN ---
Subjective Progress Note Date: 12/03/20 Principal diagnosis: Acute on chronic hypoxic respiratory failure secondary to acute exacerbation of systolic CHF and COPD and underlying lung cancer This is a 70-year-old female patient with a known history of small cell lung cancer with previous chemo radiation treatment completed 1 year ago. She also has a history of ischemic cardiomyopathy status post IV AICD placement, morbid obesity, former smoker, hypertension, osteoarthritis. She presented here to the emergency room about 5 days ago after developing a syncopal episode while sitting on the toilet. She fell and hit her head. He presented here again yesterday with increasing shortness of breath over the past 3-4 days. His x-ray revealed similar opacity in the right upper paratracheal/right mediastinal region which has not changed compared to previous of 11/26/2020. There is marketed decrease in bibasilar interstitial a parasitic disease. No pneumothorax or pleural effusion. Heart slightly enlarged. CT angiogram revealed evidence of pulmonary embolism. There is masslike consolidation and atelectasis in the medial right upper lobe with mediastinal. Tracheal mass. Not significantly changed compared to previous CAT scan in September 2020. White count 5.9. Hemoglobin 10.7. Sodium 134. Potassium 5.0. Bicarb 17. Creatinine 0.82. Troponins were negative 3. ProBNP 329. Castañeda virus by PCR not detected. In today in consultation on the regular medical floor. She is currently sitting up in bed. Awake and alert in no acute distress. RD breathing quite a bit better today compared to yesterday. Maintaining O2 saturations in the mid 90s on 2 L/m per nasal cannula. She does have home O2 as well. Afebrile. Hemodynamically stable. She's been initiated on DuoNeb inhalations, Pulmicort and Perforomist inhalations, IV Solu-Medrol. Anticoagulated with Eliquis. Antibiotics in the form of azithromycin. The patient is seen today 12/02/2020 in follow-up on the regular medical floor. She is currently sitting up in a chair at the bedside. Awake and alert in no acute distress. States she is feeling a bit more short of breath today compared to yesterday. Chest x-ray continues to show mediastinal and right hilar mass. No focal airspace opacity, pleural effusion or pneumothorax. Maintaining O2 saturations in the 90s on 2 L/m per nasal cannula. She's been afebrile. White count 10.9. Hemoglobin 11.5. Sodium 137. Potassium 4.7. Bicarb 18. Creatinine 0.80. Blood glucose 160. Continue on DuoNeb inhalations, Pulmicort and Perforomist inhalations, IV Solu-Medrol. Anticoagulated with Eliquis.\ On 12/03/2020 patient seen in follow-up on medical surgical floor. She is awake and alert,in no acute distress, currently on 2 L of oxygen pulse ox is 98%, she's been afebrile overnight, Her main complaint today is abdominal pressure, she thinks that she may be developing a urinary tract infection, she is still moderately wheezy, but overall she feels that her breathing is improving, yesterday she received one-time dose of Lasix 40 mg 1, today's chest x-ray shows mediastinal mass, cardiomegaly, volume loss in the right hemithorax. Patient remains on nebulized bronchodilators, she is on Pulmicort, Perforomist, IV steroids, azithromycin, and she is on oral anticoagulation. Today's labs have been reviewed, white blood cell count is 10.6, hemoglobin is 12.0, sodium i s 135, the rest of electrolytes and renal profile were unremarkable, proBNP level was 997, troponin was less than 0.012. Urinalysis was sent and was negative for any sign of infection. Objective - Vital Signs Vital signs: Vital Signs Temp 97.7 F 12/03/20 08:00 Pulse 93 12/03/20 11:21 Resp 19 12/03/20 08:00 BP 158/75 12/03/20 11:21 Pulse Ox 98 12/03/20 11:21 Intake & Output 12/02/20 12/03/20 12/03/20 18:59 06:59 18:59 Other: # Voids 6 5 # Bowel Movements 1 0 - Exam GENERAL EXAM: Alert, very pleasant, morbidly obese, 70-year-old white female, 3 L of oxygen with a pulse ox of 98% comfortable in no apparent distress. HEAD: Normocephalic/atraumatic. EYES: Normal reaction of pupils, equal size. Conjunctiva pink, sclera white. NOSE: Clear with pink turbinates. THROAT: No erythema or exudates. NECK: No masses, no JVD, no thyroid enlargement, no adenopathy. CHEST: No chest wall deformity. Symmetrical expansion. LUNGS: Equal air entry with a few scattered wheezes, overall less bronchospastic on today's exam CVS: Regular rate and rhythm, normal S1 and S2, no gallops, no murmurs, no rubs ABDOMEN: Soft, nontender. No hepatosplenomegaly, normal bowel sounds, no guarding or rigidity. EXTREMITIES: No clubbing, no edema, no cyanosis, 2+ pulses and upper and lower extremities. MUSCULOSKELETAL: Muscle strength and tone normal. SPINE: No scoliosis or deformity SKIN: No rashes CENTRAL NERVOUS SYSTEM: Alert and oriented -3. No focal deficits, tone is normal in all 4 extremities. PSYCHIATRIC: Alert and oriented -3. Appropriate affect. Intact judgment and insight. - Labs CBC & Chem 7: 12/03/20 11:25 12/03/20 11:25 Labs: Abnormal Lab Results - Last 24 Hours (Table) 12/02/20 12/02/20 12/03/20 Range/Units 16:35 20:25 07:10 RBC (3.80-5.40) m/uL Neutrophils # (1.3-7.7) k/uL Lymphocytes # (1.0-4.8) k/uL Sodium (137-145) mmol/L BUN (7-17) mg/dL Glucose (74-99) mg/dL POC Glucose (mg/dL) 134 H 138 H 147 H (75-99) mg/dL Magnesium (1.6-2.3) mg/dL 12/03/20 12/03/20 12/03/20 Range/Units 11:03 11:25 11:25 RBC 3.79 L (3.80-5.40) m/uL Neutrophils # 9.2 H (1.3-7.7) k/uL Lymphocytes # 0.8 L (1.0-4.8) k/uL Sodium 135 L (137-145) mmol/L BUN 26 H (7-17) mg/dL Glucose 114 H (74-99) mg/dL POC Glucose (mg/dL) 108 H (75-99) mg/dL Magnesium 2.4 H (1.6-2.3) mg/dL Assessment and Plan Plan: Assessment: #1. Acute on chronic hypoxic respiratory failure secondary to acute exacerbation of systolic CHF, and acute exacerbation of COPD, and underlying lung cancer #2. Recent fall with head trauma #3. Cardiomyopathy with ejection fraction of 40-45%, status post biventricular AICD placement #4. Hypertension #5. Morbid obesity with BMI of 45.1 kg/m #6. History of small cell lung cancer diagnosed in 2019, completed chemoradiation approximately one year ago #7. Former smoker, currently in remission #8. Previous pleural effusion status post thoracentesis Plan: Continue current medical treatment, continue nebulized bronchodilators Today's chest x-ray has been reviewed, we did not appreciate acute airspace disease, but proBNP level came back elevated, patient will receive another dose of IV Lasix per hospitalist service Continue with IV steroids, nebulized bronchodilators Increase activity as tolerated We will continue to follow I performed a history & physical examination of the patient and discussed their management with my nurse practitioner, Trish Hanna. I reviewed the nurse practitioner's note and agree with the documented findings and plan of care. Lung sounds are positive for diminished breath sounds throughout the lung marcus. The findings and the impression was discussed with the patient. I attest to the documentation by the nurse practitioner. Time with Patient: Less than 30
--- NOTE | 2020-12-03 14:21 | P.PN ---
Subjective Progress Note Date: 12/03/20 Patient is significantly more dyspneic today. Had an episode of coughing in which she coughed up a blood clot. Also appears to be dizzy, feels congested in her chest. Objective - Vital Signs Vital signs: Vital Signs Temp 97.7 F 12/03/20 08:00 Pulse 93 12/03/20 11:21 Resp 19 12/03/20 08:00 BP 158/75 12/03/20 11:21 Pulse Ox 98 12/03/20 11:21 Intake & Output 12/02/20 12/03/20 12/03/20 18:59 06:59 18:59 Other: # Voids 6 5 # Bowel Movements 1 0 - Exam Gen: awake, alert HEENT: normocephalic, atraumatic, good hearing acuity, moist mucous membranes Resp: good air exchange, breathing comfortably with no accessory muscle use, diffuse wheezing in all lung marcus CVS: good distal perfusion x 4, regular rate and rhythm without murmurs GI: soft, NTTP, ND : no SPT, no CVAT, gastelum catheter not present MSK: no pitting edema, no clubbing Neuro: non-focal, moving all extremities Psych: cooperative, euthymic mood - Labs CBC & Chem 7: 12/03/20 11:25 12/03/20 11:25 Labs: Abnormal Lab Results - Last 24 Hours (Table) 12/02/20 12/02/20 12/03/20 Range/Units 16:35 20:25 07:10 RBC (3.80-5.40) m/uL Neutrophils # (1.3-7.7) k/uL Lymphocytes # (1.0-4.8) k/uL Sodium (137-145) mmol/L BUN (7-17) mg/dL Glucose (74-99) mg/dL POC Glucose (mg/dL) 134 H 138 H 147 H (75-99) mg/dL Magnesium (1.6-2.3) mg/dL 12/03/20 12/03/20 12/03/20 Range/Units 11:03 11:25 11:25 RBC 3.79 L (3.80-5.40) m/uL Neutrophils # 9.2 H (1.3-7.7) k/uL Lymphocytes # 0.8 L (1.0-4.8) k/uL Sodium 135 L (137-145) mmol/L BUN 26 H (7-17) mg/dL Glucose 114 H (74-99) mg/dL POC Glucose (mg/dL) 108 H (75-99) mg/dL Magnesium 2.4 H (1.6-2.3) mg/dL Assessment and Plan Assessment: Acute worsening shortness of breath multifactorial secondary to underlying lung cancer, COPD Supplemental oxygen as needed Follow-up cultures patient was started on antibiotics in the ED Systemic steroids breathing treatments Supportive care Supplemental oxygen Pulmonary evaluation Lasix 60mg IV once, insert gastelum Echo cardiology consult Mild hyperkalemia Patient given potassium lowering cocktail Follow-up on potassium level Chronic systolic CHF status post AICD currently compensated Hypertension resume home medications Hyperlipidemia resume statin Small cell lung cancer continue outpatient follow-up DVT prophylaxis patient on Eliquis unknown reason no reported history of blood clots Anticipated length of stay more than 2 midnights Anticipated discharge home
[2020-12-03 16:35] LABS: Glucose,Whole Blood 125 mg/dL (75-99)
[2020-12-03] MEDS: FAMOTIDINE 20 MG TAB PO SCH (17:06)
[2020-12-03 20:04] LABS: Glucose,Whole Blood 122 mg/dL (75-99)
[2020-12-03] MEDS: MORPHINE SULFATE 2 MG/ML SYRINGE IVP PRN (21:37)
[2020-12-03] MEDS: AZITHROMYCIN 500 MG TAB PO SCH (21:38)
[2020-12-04 07:03] LABS: Glucose,Whole Blood 118 mg/dL (75-99)
[2020-12-04] MEDS: INSULIN ASPART (NovoLOG) 100 UNIT/ML VIAL SQ SCH ×4 (07:45→20:45)
[2020-12-04] MEDS: SPIRONOLACTONE 25 MG TAB PO SCH (08:02)
[2020-12-04] MEDS: APIXABAN 5 MG TAB PO SCH ×2 (08:02→20:14)
[2020-12-04] MEDS: ASPIRIN 81 MG PO SCH (08:02)
[2020-12-04] MEDS: SACUBITRIL/VALSARTAN 24 MG-26 MG TABLET PO SCH ×2 (08:02→20:15)
[2020-12-04] MEDS: PANTOPRAZOLE 40 MG TABLET PO SCH (08:02)
[2020-12-04] MEDS: methylPREDNISolone SOD SUCCI 40 MG/ML 1 ML VIAL IV SCH ×2 (08:03→22:59)
[2020-12-04] MEDS ORDERED: FUROSEMIDE 10 MG/ML 10 ML VIAL IV STA (09:19)
[2020-12-04] MEDS: BUDESONIDE 1 MG/2 ML NEBU INHALATION SCH ×2 (10:07→20:56)
[2020-12-04] MEDS: FORMOTEROL FUMARATE 20 MCG/2 ML NEBU INHALATION SCH ×2 (10:07→20:57)
[2020-12-04] MEDS: IPRATROPIUM-ALBUTEROL 3 ML NEB INHALATION SCH ×4 (10:07→20:57)
--- NOTE | 2020-12-04 10:43 | P.CRDCN ---
History of Present Illness History of present illness: HISTORY OF PRESENTING ILLNESS This is a pleasant 70-year-old female past medical history significant for mild nonobstructive coronary artery disease, small cell lung cancer with previous saranya mo radiation treatment completed 1 year ago, paroxysmal atrial fibrillation, nonischemic cardiomyopathy s/p BiV AICD in 2014, hypertension, dyslipidemia, former nicotine dependence. She follows in the office with Dr. You. We have been asked to see in consultation for chest pain. Patient seen and examined at bedside, she denies any chest pain. Patient was admitted to the hospital on 12/01/20 with worsening shortness of breath and increased oxygen requirement. She had an episode yesterday of feeling weak, shortness of breath and some mild chest tightness that she gets randomly. She states she had a worsened shortness of breath yesterday, was given one dose of 40mg IV Lasix, had good urine output and had improvement in her symptoms. Overall she feels that her breathing is improving. DIAGNOSTICS EKG reveals V paced rhythm HR 94. Recent echocardiogram 10/05/2020 revealed an EF of 45%, grade 1 diastolic dysfunction, moderate left ventricular hypertrophy, apical hypokinesis, mild to moderate aortic regurgitation, mild mitral regurgitation Cardiac catheterization 2013 with mild coronary artery disease Chest xray mediastinal mass, cardiomegaly Laboratory reviewed, WBC 10.6, hemoglobin 12, platelets 295, sodium 135, potassium 4.9, BUN 26, serum creatinine 0.8, troponin negative 1, proBNP 997 Current home cardiac medications include Eliquis 5 mg twice a day, aspirin 81 mg daily, contrast to 24 mg26 mg daily, spironolactone 25 mg daily REVIEW OF SYSTEMS At the time of my exam: CONSTITUTIONAL: Denies fever or chills. CARDIOVASCULAR: +shortness of breath Denies chest pain, orthopnea, PND or palpitations. RESPIRATORY: Denies cough. GASTROINTESTINAL: Denies abdominal pain, diarrhea, constipation, nausea or vomiting. MUSCULOSKELETAL: Denies myalgias. NEUROLOGIC: Denies numbness, tingling, headacbe or weakness. ENDOCRINE: Denies fatigue, weight change, polydipsia or polyurina. GENITOURINARY: Denies burning, hematuria or urgency with micturation. HEMATOLOGIC: Denies history of anemia or bleeding. PHYSICAL EXAMINATION Orthostatic vital signs revealed blood pressure 135/81 supine, blood pressure 150/89 sitting, blood pressure 138/87 standing. CONSTITUTIONAL: No apparent distress. HEENT: Head is normocephalic. Pupils are equal, round. Sclerae anicteric. Mucous membranes of the mouth are moist. No JVD. No carotid bruit. CHEST EXAMINATION: Lungs are diminished bilateral bases to auscultation. No chest wall tenderness is noted on palpation or with deep breathing. HEART EXAMINATION: Regular rate and rhythm. S1, S2 heard. systolic murmur at bease. ABDOMEN: Soft, nontender. Positive bowel sounds. EXTREMITIES: 2+ peripheral pulses, no lower extremity edema and no calf tenderness. NEUROLOGIC EXAMINATION: Patient is awake, alert and oriented x3. ASSESSMENT Shortness of breath, on exam patient does not appear to be in acute heart failure exacerbation, BNP only mildly elevated Mild nonobstructive coronary artery disease COPD Small cell lung cancer with previous chemo radiation treatment completed 1 year ago Paroxysmal atrial fibrillation on Eliquis Nonischemic cardiomyopathy s/p BiV AICD in 2013 Hypertension Dyslipidemia Former nicotine dependence PLAN -Orthostatics mildly positive, will start PO midodrine -Continue home cardiac medications -No need for repeat echocardiogram with recent one done in the office as noted above in September 2020. -From a cardiology perspective, no further changes or cardiac workup, we will follow the patient as needed. Please reach out with further questions or concerns -Follow up with Dr. You in 1-2 weeks. Nurse Practitioner note has been reviewed, I agree with a documented findings and plan of care. Patient was seen and examined. 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 Completed chemo and radiation. 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 History of Any Multi-Drug Resistant Organisms: None Reported Past Surgical History: Pacemaker Additional Past Surgical History / Comment(s): 2013 BiV AICD/generator change 2013 cardiac cath Past Anesthesia/Blood Transfusion Reactions: No Reported Reaction Additional Past Anesthesia/Blood Transfusion Reaction / Comment(s): Pt hsa never had general or spinal anesthesia. Type of Cardiac Device: Biventricular Pacemaker, AICD Device Placement Date:: 2013 Past Psychological History: No Psychological Hx Reported Additional Psychological History / Comment(s): Pt resides alone. She is independent. Smoking Status: Former smoker Past Alcohol Use History: None Reported Additional Past Alcohol Use History / Comment(s): Pt started smoking in 1964 and quit in 2012. Past Drug Use History: None Reported - Past Family History Brother(s) Family Medical History: Cancer Additional Family Medical History / Comment(s): pancreatic cancer Father Family Medical History: CVA/TIA, Hypertension Additional Family Medical History / Comment(s): third degree block, stroke Mother Family Medical History: Hypertension Medications and Allergies Home Medications Medication Instructions Recorded Confirmed Type Aspirin 81 mg PO DAILY 07/27/13 11/30/20 History Spironolactone [Aldactone] 25 mg PO DAILY #30 tab 01/12/20 11/30/20 Rx Apixaban [Eliquis] 5 mg PO BID 11/21/20 11/30/20 History Glycopyrrolate/Formoterol Fum 2 puff INHALATION RT-BID 11/21/20 11/30/20 History [Bevespi Aerosphere Inhaler] Ipratropium-Albuterol Nebulize 3 ml INHALATION RT-QID PRN 11/21/20 11/30/20 History [Duoneb 0.5 mg-3 mg/3 ml Soln] Sacubitril/Valsartan [Entresto 24 1 tab PO BID 11/21/20 11/30/20 History mg-26 mg Tablet] Famotidine 40 mg PO W/SUPPER 11/30/20 11/30/20 History Allergies Allergy/AdvReac Type Severity Reaction Status Date / Time losartan [Losartan] Allergy Severe Rash/Hives Verified 11/30/20 23:03 Penicillins Allergy Severe Rash/Hives Verified 11/30/20 23:03 cortisone [Cortisone] AdvReac Severe flushed Verified 11/30/20 23:03 skin, depression Tetanus Vaccines and Toxoid AdvReac Severe huge Verified 11/30/20 23:03 [Tetanus Vaccines & Toxoid] localized swelling Physical Exam Vitals: Vital Signs Temp Pulse Pulse Resp BP Pulse Ox 12/04/20 02:50 98.3 F 94 19 168/80 94 L 12/03/20 20:03 98 12/03/20 20:01 98 12/03/20 20:00 98.2 F 89 18 143/68 97 12/03/20 19:59 98 12/03/20 19:48 91 12/03/20 15:59 89 12/03/20 15:52 99 12/03/20 15:49 92 12/03/20 14:00 97.5 F L 97 18 130/78 95 12/03/20 11:21 93 158/75 98 12/03/20 11:04 96 12/03/20 10:53 98 Intake and Output 12/03/20 12/04/20 12/04/20 22:59 06:59 14:59 Intake Total 200 Output Total 1999 1399 Balance -1999 -1199 Intake: Oral 200 Output: Urine 1999 1399 Other: Voiding Method Indwelling Catheter Results 12/03/20 11:25 12/03/20 11:25 Cardiac Enzymes 12/03/20 Range/Units 11:22 Troponin I <0.012 (0.000-0.034) ng/mL CBC 12/03/20 Range/Units 11:25 WBC 10.6 (3.8-10.6) k/uL RBC 3.79 L (3.80-5.40) m/uL Hgb 12.0 (11.4-16.0) gm/dL Hct 37.7 (34.0-46.0) % Plt Count 295 (150-450) k/uL Comprehensive Metabolic Panel 12/03/20 Range/Units 11:25 Sodium 135 L (137-145) mmol/L Potassium 4.9 (3.5-5.1) mmol/L Chloride 103 (98-107) mmol/L Carbon Dioxide 22 (22-30) mmol/L BUN 26 H (7-17) mg/dL Creatinine 0.81 (0.52-1.04) mg/dL Glucose 114 H (74-99) mg/dL Calcium 9.2 (8.4-10.2) mg/dL Current Medications Generic Name Dose Route Start Last Admin Trade Name Freq PRN Reason Stop Dose Admin Acetaminophen 650 mg 12/01/20 12:45 12/03/20 15:36 Acetaminophen Tab 325 Mg Tab PO 650 mg Q6HR PRN Administration Fever and/ or Pain Albuterol/Ipratropium 3 ml 12/01/20 12:00 12/03/20 19:45 Ipratropium-Albuterol 3 Ml Neb INHALATION 3 ml RT-QID DEJA Administration Apixaban 5 mg 12/01/20 09:00 12/04/20 08:02 Apixaban 5 Mg Tab PO 5 mg BID DEJA Administration Protocol Aspirin 81 mg 12/01/20 09:00 12/04/20 08:02 Aspirin 81 Mg PO 81 mg DAILY DEJA Administration Azithromycin 500 mg 12/03/20 21:00 12/03/20 21:38 Azithromycin 500 Mg Tab PO 500 mg HS DEJA Administration Budesonide 1 mg 12/01/20 20:00 12/03/20 19:45 Budesonide 1 Mg/2 Ml Nebu INHALATION 1 mg RT-BID DEJA Administration Famotidine 40 mg 12/01/20 17:30 12/03/20 17:06 Famotidine 20 Mg Tab PO 40 mg W/SUPPER DEJA Administration Formoterol Fumarate 20 mcg 12/01/20 08:00 12/03/20 19:45 Formoterol Fumarate 20 Mcg/2 Ml Nebu INHALATION 20 mcg RT-BID DEJA Administration Insulin Aspart 0 unit 12/02/20 12:30 12/04/20 07:45 Insulin Aspart (Novolog) 100 Unit/Ml Vial SQ Not Given ACHS [facility] Protocol Lorazepam 1 mg 12/01/20 01:34 Lorazepam 2 Mg/Ml Inj IV Q4HR PRN Anxiety Methylprednisolone Sodium Succinate 40 mg 12/01/20 21:00 12/04/20 08:03 Methylprednisolone Sod Succi 40 Mg/Ml 1 Ml Vial IV 40 mg Q12HR DEJA Administration Morphine Sulfate 2 mg 12/01/20 01:34 12/03/20 21:37 Morphine Sulfate 2 Mg/Ml Syringe IVP 2 mg Q4HR PRN Administration Pain/Discomfort Naloxone HCl 0.2 mg 12/01/20 01:36 Naloxone 0.4 Mg/Ml 1 Ml Vial IV Q2M PRN Opioid Reversal Ondansetron HCl 4 mg 12/01/20 01:36 Ondansetron 4 Mg/2 Ml Vial IVP Q8HR PRN Nausea And Vomiting Pantoprazole Sodium 40 mg 12/02/20 07:30 12/04/20 08:02 Pantoprazole 40 Mg Tablet PO 40 mg [id number] DEJA Administration Sacubitril/Valsartan 1 each 12/01/20 09:00 12/04/20 08:02 Sacubitril/Valsartan 24 Mg-26 Mg Tablet PO 1 each BID DEJA Administration Spironolactone 25 mg 12/01/20 09:00 12/04/20 08:02 Spironolactone 25 Mg Tab PO 25 mg DAILY DEJA Administration Intake and Output 12/03/20 12/04/20 12/04/20 22:59 06:59 14:59 Intake Total 200 Output Total 1999 1399 Balance -1999 Intake: Oral 200 Output: Urine 1999 1400 Other: Voiding Method Indwelling Catheter 12/03/20 11:25 12/03/20 11:25
[2020-12-04 12:20] LABS: Glucose,Whole Blood 135 mg/dL (75-99)
--- NOTE | 2020-12-04 13:27 | P.PN ---
Subjective Progress Note Date: 12/04/20 Patient is improved from yesterday in terms of dyspnea. Still feels dizzy, feels congested in her chest. Objective - Vital Signs Vital signs: Vital Signs Temp 97.9 F 12/04/20 08:00 Pulse 100 12/04/20 10:24 Resp 18 12/04/20 08:00 BP 155/81 12/04/20 08:00 Pulse Ox 94 L 12/04/20 08:00 Intake & Output 12/03/20 12/04/20 12/04/20 18:59 06:59 18:59 Intake Total 200 Output Total 1999 1399 Balance -1999 Intake: Oral 200 Output: Urine 1999 1399 Other: Voiding Method Indwelling Catheter - Exam Gen: awake, alert HEENT: normocephalic, atraumatic, good hearing acuity, moist mucous membranes Resp: good air exchange, breathing comfortably with no accessory muscle use, diffuse wheezing in all lung marcus CVS: good distal perfusion x 4, regular rate and rhythm without murmurs GI: soft, NTTP, ND : no SPT, no CVAT, gastelum catheter not present MSK: no pitting edema, no clubbing Neuro: non-focal, moving all extremities Psych: cooperative, euthymic mood - Labs CBC & Chem 7: 12/03/20 11:25 12/03/20 11:25 Labs: Abnormal Lab Results - Last 24 Hours (Table) 12/03/20 12/03/20 12/04/20 Range/Units 16:30 20:03 06:55 POC Glucose (mg/dL) 125 H 122 H 118 H (75-99) mg/dL 12/04/20 Range/Units 12:16 POC Glucose (mg/dL) 135 H (75-99) mg/dL Assessment and Plan Assessment: Acute worsening shortness of breath multifactorial secondary to underlying lung cancer, COPD Supplemental oxygen as needed Follow-up cultures patient was started on antibiotics in the ED Systemic steroids breathing treatments Supportive care Supplemental oxygen Pulmonary evaluation repeat Lasix 60mg IV , insert gastelum cardiology consult Mild hyperkalemia Patient given potassium lowering cocktail Follow-up on potassium level Chronic systolic CHF status post AICD currently compensated Hypertension resume home medications Hyperlipidemia resume statin Small cell lung cancer continue outpatient follow-up DVT prophylaxis patient on Eliquis unknown reason no reported history of blood clots Anticipated length of stay more than 2 midnights Anticipated discharge home
--- NOTE | 2020-12-04 15:23 | P.PN ---
Subjective Progress Note Date: 12/04/20 Principal diagnosis: Shortness of breath. This is a 70-year-old female patient with a known history of small cell lung cancer with previous chemo radiation treatment completed 1 year ago. She also has a history of ischemic cardiomyopathy status post IV AICD placement, morbid obesity, former smoker, hypertension, osteoarthritis. She presented here to the emergency room about 5 days ago after developing a syncopal episode while sitting on the toilet. She fell and hit her head. He presented here again yesterday with increasing shortness of breath over the past 3-4 days. His x-ray revealed similar opacity in the right upper paratracheal/right mediastinal region which has not changed compared to previous of 11/26/2020. There is marketed decrease in bibasilar interstitial a parasitic disease. No pneumothorax or pleural effusion. Heart slightly enlarged. CT angiogram revealed evidence of pulmonary embolism. There is masslike consolidation and atelectasis in the medial right upper lobe with mediastinal. Tracheal mass. Not significantly changed compared to previous CAT scan in September 2020. White count 5.9. Hemoglobin 10.7. Sodium 134. Potassium 5.0. Bicarb 17. Creatinine 0.82. Troponins were negative 3. ProBNP 329. Castañeda virus by PCR not detected. In today in consultation on the regular medical floor. She is currently sitting up in bed. Awake and alert in no acute distress. RD breathing quite a bit better today compared to yesterday. Maintaining O2 saturations in the mid 90s on 2 L/m per nasal cannula. She does have home O2 as well. Afebrile. Hemodynamically stable. She's been initiated on DuoNeb inhalations, Pulmicort and Perforomist inhalations, IV Solu-Medrol. Anticoagulated with Eliquis. Antibiotics in the form of azithromycin. The patient is seen today 12/02/2020 in follow-up on the regular medical floor. She is currently sitting up in a chair at the bedside. Awake and alert in no acute distress. States she is feeling a bit more short of breath today compared to yesterday. Chest x-ray continues to show mediastinal and right hilar mass. No focal airspace opacity, pleural effusion or pneumothorax. Maintaining O2 saturations in the 90s on 2 L/m per nasal cannula. She's been afebrile. White count 10.9. Hemoglobin 11.5. Sodium 137. Potassium 4.7. Bicarb 18. Creatinine 0.80. Blood glucose 160. Continue on DuoNeb inhalations, Pulmicort and Perforomist inhalations, IV Solu-Medrol. Anticoagulated with Eliquis.\ On 12/03/2020 patient seen in follow-up on medical surgical floor. She is awake and alert,in no acute distress, currently on 2 L of oxygen pulse ox is 98%, she's been afebrile overnight, Her main complaint today is abdominal pressure, she thinks that she may be developing a urinary tract infection, she is still moderately wheezy, but overall she feels that her breathing is improving, yesterday she received one-time dose of Lasix 40 mg 1, today's chest x-ray shows mediastinal mass, cardiomegaly, volume loss in the right hemithorax. Patient remains on nebulized bronchodilators, she is on Pulmicort, Perforomist, IV steroids, azithromycin, and she is on oral anticoagulation. Today's labs have been reviewed, white blood cell count is 10.6, hemoglobin is 12.0, sodium is 135, the rest of electrolytes and renal profile were unremarkable, proBNP level was 997, troponin was less than 0.012. Urinalysis was sent and was negative for any sign of infection. Progress note dated 12/04/2020. 70-year-old female who was seen a few days ago in consultation. She is again seen in room 458. Currently doing relatively well. Her most recent vitals include a 2 L saturation of 94%, blood pressure 138/87, respiratory rate 18, heart rate 90, and a temperature 97.9. No new labs from today noted. From yesterday, white count 10.6, hemoglobin 12, hematocrit 37.7, platelet count 295,000. Sodium 135, potassium 4.9, chlorides 103, CO2 22, anion gap 10, BUN 26, and creatinine 0.81. Chest x-rays is consistent with cardiomegaly. Objective - Vital Signs Vital signs: Vital Signs Temp 97.9 F 12/04/20 08:00 Pulse 98 12/04/20 13:56 Resp 18 12/04/20 08:00 BP 155/81 12/04/20 08:00 Pulse Ox 94 L 12/04/20 08:00 Intake & Output 12/03/20 12/04/20 12/04/20 18:59 06:59 18:59 Intake Total 200 Output Total 1999 1399 Balance -1999 -1199 Intake: Oral 200 Output: Urine 1999 1399 Other: Voiding Method Indwelling Catheter - Exam No acute distress, oriented 3. HEENT examination is grossly unremarkable. Neck supple. Full range of motion. No adenopathy thyromegaly or neck vein distention. Cardiovascular examination reveals regular rhythm rate. S1-S2 normal. No S3 or S4. No discernible murmur noted. Heart sounds are distant. Heart rate 90 bpm. Lungs reveal scattered bilateral wheezes. Breath sounds equal bilaterally. No crackles. Abdomen soft bowel sounds are heard. No masses or tenderness. Extremities are intact. No cyanosis clubbing or edema. Skin is without rash or lesion. Neurologic examination is brief but nonfocal. - Labs CBC & Chem 7: 12/03/20 11:25 12/03/20 11:25 Labs: Abnormal Lab Results - Last 24 Hours (Table) 12/03/20 12/03/20 12/04/20 Range/Units 16:30 20:03 06:55 POC Glucose (mg/dL) 125 H 122 H 118 H (75-99) mg/dL 12/04/20 Range/Units 12:16 POC Glucose (mg/dL) 135 H (75-99) mg/dL Assessment and Plan Assessment: #1. Acute on chronic hypoxic respiratory failure secondary to acute ex acerbation of systolic CHF, and acute exacerbation of COPD, and underlying lung cancer. #2. Recent fall with head trauma. #3. Cardiomyopathy with ejection fraction of 40-45%, status post biventricular AICD placement. #4. Hypertension. #5. Morbid obesity with BMI of 45.1 kg/m. #6. History of small cell lung cancer diagnosed in 2019, completed chemoradiation approximately one year ago. #7. Former smoker, currently in remission. #8. Previous pleural effusion status post thoracentesis. Plan: Plan dated 12/04/2020. The patient appears to be doing better. She feels much better today and possibly could be discharged in the next 24-48 hours. The patient has been weaned down to 2 L by nasal cannula. The rest of her vital signs are stable. Clinically, she denies any worsening shortness of breath or chest pain. She's not coughing and not producing any phlegm. There is no fever or chills. Overall prognosis remains guarded, and we will continue to follow the patient and make recommendations where appropriate. Time with Patient: Less than 30
[2020-12-04 16:57] LABS: Glucose,Whole Blood 116 mg/dL (75-99)
[2020-12-04] MEDS: MIDODRINE 5 MG TAB PO SCH (17:09)
[2020-12-04] MEDS: FAMOTIDINE 20 MG TAB PO SCH (17:09)
[2020-12-04] MEDS: ACETAMINOPHEN TAB 325 MG TAB PO PRN (17:43)
[2020-12-04] MEDS: AZITHROMYCIN 500 MG TAB PO SCH (20:14)
[2020-12-04 22:39] LABS: Glucose,Whole Blood 118 mg/dL (75-99)
[2020-12-05] MEDS: ACETAMINOPHEN TAB 325 MG TAB PO PRN ×3 (03:23→21:26)
[2020-12-05 07:19] LABS: Glucose,Whole Blood 139 mg/dL (75-99)
[2020-12-05] MEDS: IPRATROPIUM-ALBUTEROL 3 ML NEB INHALATION SCH ×4 (08:01→21:55)
[2020-12-05] MEDS: FORMOTEROL FUMARATE 20 MCG/2 ML NEBU INHALATION SCH (08:01)
[2020-12-05] MEDS: BUDESONIDE 1 MG/2 ML NEBU INHALATION SCH (08:01)
[2020-12-05] MEDS: INSULIN ASPART (NovoLOG) 100 UNIT/ML VIAL SQ SCH ×4 (08:24→21:27)
[2020-12-05] MEDS: PANTOPRAZOLE 40 MG TABLET PO SCH (08:24)
[2020-12-05] MEDS: SACUBITRIL/VALSARTAN 24 MG-26 MG TABLET PO SCH ×2 (08:24→21:27)
[2020-12-05] MEDS: APIXABAN 5 MG TAB PO SCH ×2 (08:24→21:27)
[2020-12-05] MEDS: MIDODRINE 5 MG TAB PO SCH ×2 (08:24→17:24)
[2020-12-05] MEDS: SPIRONOLACTONE 25 MG TAB PO SCH (08:25)
[2020-12-05] MEDS: methylPREDNISolone SOD SUCCI 40 MG/ML 1 ML VIAL IV SCH (08:51)
[2020-12-05] MEDS: predniSONE 10 MG TAB PO SCH (10:37)
--- NOTE | 2020-12-05 11:26 | P.PN ---
Subjective Progress Note Date: 12/05/20 Pt doing well today, improving. Feels close to baseline, but not quite ready to take care of herself at home. Wheezing is improved. Congestion improved. Objective - Vital Signs Vital signs: Vital Signs Temp 97.9 F 12/05/20 08:20 Pulse 96 12/05/20 11:22 Resp 16 12/05/20 08:20 BP 128/72 12/05/20 08:20 Pulse Ox 96 12/05/20 08:20 Intake & Output 12/04/20 12/05/20 12/05/20 18:59 06:59 18:59 Intake Total 700 Output Total 1900 1525 Balance -1900 700 -1525 Intake: Oral 700 Output: Urine 1900 1525 Other: Voiding Method Indwelling Catheter # Bowel Movements 1 - Exam Gen: awake, alert HEENT: normocephalic, atraumatic, good hearing acuity, moist mucous membranes Resp: good air exchange, breathing comfortably with no accessory muscle use, diffuse wheezing in all lung marcus CVS: good distal perfusion x 4, regular rate and rhythm without murmurs GI: soft, NTTP, ND : no SPT, no CVAT, gastelum catheter not present MSK: no pitting edema, no clubbing Neuro: non-focal, moving all extremities Psych: cooperative, euthymic mood - Labs CBC & Chem 7: 12/03/20 11:25 12/03/20 11:25 Labs: Abnormal Lab Results - Last 24 Hours (Table) 12/04/20 12/04/20 12/04/20 Range/Units 12:16 16:53 20:38 POC Glucose (mg/dL) 135 H 116 H 118 H (75-99) mg/dL 12/05/20 Range/Units 07:18 POC Glucose (mg/dL) 139 H (75-99) mg/dL Assessment and Plan Assessment: Acute worsening shortness of breath multifactorial secondary to underlying lung cancer, COPD Supplemental oxygen as needed Follow-up cultures patient was started on antibiotics in the ED Systemic steroids breathing treatments Supportive care Supplemental oxygen Pulmonary evaluation PO lasix 40mg daily today, insert gastelum cardiology consult Mild hyperkalemia Patient given potassium lowering cocktail Follow-up on potassium level Chronic systolic CHF status post AICD currently compensated Hypertension resume home medications Hyperlipidemia resume statin Small cell lung cancer continue outpatient follow-up DVT prophylaxis patient on Eliquis unknown reason no reported history of blood clots Anticipated length of stay more than 2 midnights Anticipated discharge home
[2020-12-05 11:38] LABS: Glucose,Whole Blood 117 mg/dL (75-99)
[2020-12-05] MEDS: FUROSEMIDE 40 MG TAB PO SCH (11:57)
--- NOTE | 2020-12-05 12:52 | P.PN ---
Subjective Progress Note Date: 12/05/20 Principal diagnosis: Acute on chronic hypoxic respiratory failure secondary to acute exacerbation of systolic CHF and COPD and underlying lung cancer This is a 70-year-old female patient with a known history of small cell lung cancer with previous chemo radiation treatment completed 1 year ago. She also has a history of ischemic cardiomyopathy status post IV AICD placement, morbid obesity, former smoker, hypertension, osteoarthritis. She presented here to the emergency room about 5 days ago after developing a syncopal episode while sitting on the toilet. She fell and hit her head. He presented here again yesterday with increasing shortness of breath over the past 3-4 days. His x-ray revealed similar opacity in the right upper paratracheal/right mediastinal region which has not changed compared to previous of 11/26/2020. There is marketed decrease in bibasilar interstitial a parasitic disease. No pneumothorax or pleural effusion. Heart slightly enlarged. CT angiogram revealed evidence of pulmonary embolism. There is masslike consolidation and atelectasis in the medial right upper lobe with mediastinal. Tracheal mass. Not significantly changed compared to previous CAT scan in September 2020. White count 5.9. Hemoglobin 10.7. Sodium 134. Potassium 5.0. Bicarb 17. Creatinine 0.82. Troponins were negative 3. ProBNP 329. Castañeda virus by PCR not detected. In today in consultation on the regular medical floor. She is currently sitting up in bed. Awake and alert in no acute distress. RD breathing quite a bit better today compared to yesterday. Maintaining O2 saturations in the mid 90s on 2 L/m per nasal cannula. She does have home O2 as well. Afebrile. Hemodynamically stable. She's been initiated on DuoNeb inhalations, Pulmicort and Perforomist inhalations, IV Solu-Medrol. Anticoagulated with Eliquis. Antibiotics in the form of azithromycin. The patient is seen today 12/02/2020 in follow-up on the regular medical floor. She is currently sitting up in a chair at the bedside. Awake and alert in no acute distress. States she is feeling a bit more short of breath today compared to yesterday. Chest x-ray continues to show mediastinal and right hilar mass. No focal airspace opacity, pleural effusion or pneumothorax. Maintaining O2 saturations in the 90s on 2 L/m per nasal cannula. She's been afebrile. White count 10.9. Hemoglobin 11.5. Sodium 137. Potassium 4.7. Bicarb 18. Creatinine 0.80. Blood glucose 160. Continue on DuoNeb inhalations, Pulmicort and Perforomist inhalations, IV Solu-Medrol. Anticoagulated with Eliquis.\ On 12/03/2020 patient seen in follow-up on medical surgical floor. She is awake and alert,in no acute distress, currently on 2 L of oxygen pulse ox is 98%, she's been afebrile overnight, Her main complaint today is abdominal pressure, she thinks that she may be developing a urinary tract infection, she is still moderately wheezy, but overall she feels that her breathing is improving, yesterday she received one-time dose of Lasix 40 mg 1, today's chest x-ray shows mediastinal mass, cardiomegaly, volume loss in the right hemithorax. Patient remains on nebulized bronchodilators, she is on Pulmicort, Perforomist, IV steroids, azithromycin, and she is on oral anticoagulation. Today's labs have been reviewed, white blood cell count is 10.6, hemoglobin is 12.0, sodium i s 135, the rest of electrolytes and renal profile were unremarkable, proBNP level was 997, troponin was less than 0.012. Urinalysis was sent and was negative for any sign of infection. On 12/05/2020 patient seen in follow-up on medical surgical floor, she is currently on room air, she's been wearing 2-3 liters of oxygen intermittently, she is currently on room air, pulse ox is 94%. She states she really had one coughing spell last night, she thinks her breathing is improving, she remains on nebulized bronchodilators, she is on daily dose of oral Lasix. She is on Eliquis, and IV steroids, Ozzie no acute events overnight, no recurrent syncopal episodes. She is in -1.2 L net fluid balance, on daily weight is available, lower extremities still show some edema. Objective - Vital Signs Vital signs: Vital Signs Temp 97.5 F L 12/05/20 12:00 Pulse 75 12/05/20 12:00 Resp 16 12/05/20 12:00 BP 157/78 12/05/20 12:00 Pulse Ox 99 12/05/20 12:00 Intake & Output 12/04/20 12/05/20 12/05/20 18:59 06:59 18:59 Intake Total 700 Output Total 1900 1525 Balance -1900 700 -1525 Intake: Oral 700 Output: Urine 1900 1525 Other: Voiding Method Indwelling Catheter # Bowel Movements 1 - Exam GENERAL EXAM: Alert, very pleasant, morbidly obese, 70-year-old white female, 3 L of oxygen with a pulse ox of 98% comfortable in no apparent distress. HEAD: Normocephalic/atraumatic. EYES: Normal reaction of pupils, equal size. Conjunctiva pink, sclera white. NOSE: Clear with pink turbinates. THROAT: No erythema or exudates. NECK: No masses, no JVD, no thyroid enlargement, no adenopathy. CHEST: No chest wall deformity. Symmetrical expansion. LUNGS: Equal air entry with a few scattered wheezes, overall less bronchospastic on today's exam CVS: Regular rate and rhythm, normal S1 and S2, no gallops, no murmurs, no rubs ABDOMEN: Soft, nontender. No hepatosplenomegaly, normal bowel sounds, no guarding or rigidity. EXTREMITIES: No clubbing, no edema, no cyanosis, 2+ pulses and upper and lower extremities. MUSCULOSKELETAL: Muscle strength and tone normal. SPINE: No scoliosis or deformity SKIN: No rashes CENTRAL NERVOUS SYSTEM: Alert and oriented -3. No focal deficits, tone is normal in all 4 extremities. PSYCHIATRIC: Alert and oriented -3. Appropriate affect. Intact judgment and insight. - Labs CBC & Chem 7: 12/03/20 11:25 12/03/20 11:25 Labs: Abnormal Lab Results - Last 24 Hours (Table) 12/04/20 12/04/20 12/05/20 Range/Units 16:53 20:38 07:18 POC Glucose (mg/dL) 116 H 118 H 139 H (75-99) mg/dL 12/05/20 Range/Units 11:37 POC Glucose (mg/dL) 117 H (75-99) mg/dL Assessment and Plan Plan: Assessment: #1. Acute on chronic hypoxic respiratory failure secondary to acute exacerbation of systolic CHF, and acute exacerbation of COPD, and underlying lung cancer #2. Recent fall with head trauma #3. Cardiomyopathy with ejection fraction of 40-45%, status post biventricular AICD placement #4. Hypertension #5. Morbid obesity with BMI of 45.1 kg/m #6. History of small cell lung cancer diagnosed in 2019, completed chemoradiation approximately one year ago #7. Former smoker, currently in remission #8. Previous pleural effusion status post thoracentesis Plan: Continue current medical treatment, continue nebulized bronchodilators We'll switch IV steroids to oral prednisone starting at 30 mg Increase activity as tolerated Her wheezing and congestion have improved She could be considered for discharge home from pulmonary perspective We will continue to follow I performed a history & physical examination of the patient and discussed their management with my nurse practitioner, Trish Hanna. I reviewed the nurse practitioner's note and agree with the documented findings and plan of care. Lung sounds are positive for diminished breath sounds throughout the lung marcus. The findings and the impression was discussed with the patient. I attest to the documentation by the nurse practitioner. Time with Patient: Less than 30
[2020-12-05 16:58] LABS: Glucose,Whole Blood 122 mg/dL (75-99)
[2020-12-05] MEDS: FAMOTIDINE 20 MG TAB PO SCH (17:25)
[2020-12-05 21:03] LABS: Glucose,Whole Blood 134 mg/dL (75-99)
[2020-12-05] MEDS: AZITHROMYCIN 500 MG TAB PO SCH (21:27)
[2020-12-05] MEDS: SYMBICORT 160-4.5 MCG INHALER INHALATION SCH (21:56)
[2020-12-06] MEDS: ACETAMINOPHEN TAB 325 MG TAB PO PRN (04:22)
[2020-12-06] MEDS: SYMBICORT 160-4.5 MCG INHALER INHALATION SCH (06:56)
[2020-12-06] MEDS: IPRATROPIUM-ALBUTEROL 3 ML NEB INHALATION SCH ×2 (06:56→10:56)
[2020-12-06 07:07] LABS: Glucose,Whole Blood 99 mg/dL (75-99)
[2020-12-06] MEDS: INSULIN ASPART (NovoLOG) 100 UNIT/ML VIAL SQ SCH ×2 (07:30→12:09)
[2020-12-06] MEDS: APIXABAN 5 MG TAB PO SCH (10:19)
[2020-12-06] MEDS: predniSONE 10 MG TAB PO SCH (10:21)
[2020-12-06] MEDS: SPIRONOLACTONE 25 MG TAB PO SCH (10:22)
[2020-12-06] MEDS: PANTOPRAZOLE 40 MG TABLET PO SCH (10:25)
[2020-12-06] MEDS: FUROSEMIDE 40 MG TAB PO SCH (10:25)
[2020-12-06] MEDS: SACUBITRIL/VALSARTAN 24 MG-26 MG TABLET PO SCH (10:26)
[2020-12-06] MEDS: MIDODRINE 5 MG TAB PO SCH (10:31)
[2020-12-06 11:41] LABS: Glucose,Whole Blood 117 mg/dL (75-99)
--- NOTE | 2020-12-06 12:03 | P.PN ---
Subjective Progress Note Date: 12/06/20 Principal diagnosis: Acute on chronic hypoxic respiratory failure secondary to acute exacerbation of systolic CHF and COPD and underlying lung cancer This is a 70-year-old female patient with a known history of small cell lung cancer with previous chemo radiation treatment completed 1 year ago. She also has a history of ischemic cardiomyopathy status post IV AICD placement, morbid obesity, former smoker, hypertension, osteoarthritis. She presented here to the emergency room about 5 days ago after developing a syncopal episode while sitting on the toilet. She fell and hit her head. He presented here again yesterday with increasing shortness of breath over the past 3-4 days. His x-ray revealed similar opacity in the right upper paratracheal/right mediastinal region which has not changed compared to previous of 11/26/2020. There is marketed decrease in bibasilar interstitial a parasitic disease. No pneumothorax or pleural effusion. Heart slightly enlarged. CT angiogram revealed evidence of pulmonary embolism. There is masslike consolidation and atelectasis in the medial right upper lobe with mediastinal. Tracheal mass. Not significantly changed compared to previous CAT scan in September 2020. White count 5.9. Hemoglobin 10.7. Sodium 134. Potassium 5.0. Bicarb 17. Creatinine 0.82. Troponins were negative 3. ProBNP 329. Castañeda virus by PCR not detected. In today in consultation on the regular medical floor. She is currently sitting up in bed. Awake and alert in no acute distress. RD breathing quite a bit better today compared to yesterday. Maintaining O2 saturations in the mid 90s on 2 L/m per nasal cannula. She does have home O2 as well. Afebrile. Hemodynamically stable. She's been initiated on DuoNeb inhalations, Pulmicort and Perforomist inhalations, IV Solu-Medrol. Anticoagulated with Eliquis. Antibiotics in the form of azithromycin. The patient is seen today 12/02/2020 in follow-up on the regular medical floor. She is currently sitting up in a chair at the bedside. Awake and alert in no acute distress. States she is feeling a bit more short of breath today compared to yesterday. Chest x-ray continues to show mediastinal and right hilar mass. No focal airspace opacity, pleural effusion or pneumothorax. Maintaining O2 saturations in the 90s on 2 L/m per nasal cannula. She's been afebrile. White count 10.9. Hemoglobin 11.5. Sodium 137. Potassium 4.7. Bicarb 18. Creatinine 0.80. Blood glucose 160. Continue on DuoNeb inhalations, Pulmicort and Perforomist inhalations, IV Solu-Medrol. Anticoagulated with Eliquis.\ On 12/03/2020 patient seen in follow-up on medical surgical floor. She is awake and alert,in no acute distress, currently on 2 L of oxygen pulse ox is 98%, she's been afebrile overnight, Her main complaint today is abdominal pressure, she thinks that she may be developing a urinary tract infection, she is still moderately wheezy, but overall she feels that her breathing is improving, yesterday she received one-time dose of Lasix 40 mg 1, today's chest x-ray shows mediastinal mass, cardiomegaly, volume loss in the right hemithorax. Patient remains on nebulized bronchodilators, she is on Pulmicort, Perforomist, IV steroids, azithromycin, and she is on oral anticoagulation. Today's labs have been reviewed, white blood cell count is 10.6, hemoglobin is 12.0, sodium i s 135, the rest of electrolytes and renal profile were unremarkable, proBNP level was 997, troponin was less than 0.012. Urinalysis was sent and was negative for any sign of infection. On 12/05/2020 patient seen in follow-up on medical surgical floor, she is currently on room air, she's been wearing 2-3 liters of oxygen intermittently, she is currently on room air, pulse ox is 94%. She states she really had one coughing spell last night, she thinks her breathing is improving, she remains on nebulized bronchodilators, she is on daily dose of oral Lasix. She is on Eliquis, and IV steroids, Ozzie no acute events overnight, no recurrent syncopal episodes. She is in -1.2 L net fluid balance, on daily weight is available, lower extremities still show some edema. On today's evaluation on 12/06/2020 patient seen in follow-up on medical surgical floor, she is breathing much easier, she states she is able to bring up some phlegm, which is yellowish in color, she remains on azithromycin, nebulized bronchodilators, and oral prednisone 30 mg daily, no acute events overnight, hemoptysis, no chest discomfort, patient has been ambulating to the bathroom, tolerating activity well, she is on maintenance dose of oral Lasix 40 mg daily, and -3.9 no fluid balance over the last 24 hours. chest x-ray from 12/03/2020 showed is down mass, cardiomegaly, post instrumentation changes without interval change, volume loss in the right hemithorax. Doing Well, no recurrent syncopal episodes, tolerating ambulation, patient is being discharged home today. Objective - Vital Signs Vital signs: Vital Signs Temp 98.2 F 12/06/20 07:09 Pulse 102 H 12/06/20 11:06 Resp 17 12/06/20 07:09 BP 137/71 12/06/20 07:09 Pulse Ox 96 12/06/20 07:09 Intake & Output 12/05/20 12/06/20 12/06/20 18:59 06:59 18:59 Intake Total 236 Output Total 2575 1400 Balance -2575 -1400 236 Intake: Oral 236 Output: Urine 2575 1400 Other: Voiding Method Indwelling Catheter Indwelling Catheter Bedside Commode - Exam GENERAL EXAM: Alert, very pleasant, morbidly obese, 70-year-old white female, room air, comfortable in no apparent distress. HEAD: Normocephalic/atraumatic. EYES: Normal reaction of pupils, equal size. Conjunctiva pink, sclera white. NOSE: Clear with pink turbinates. THROAT: No erythema or exudates. NECK: No masses, no JVD, no thyroid enlargement, no adenopathy. CHEST: No chest wall deformity. Symmetrical expansion. LUNGS: Equal air entry with a few scattered wheezes, overall less bronchospastic on today's exam CVS: Regular rate and rhythm, normal S1 and S2, no gallops, no murmurs, no rubs ABDOMEN: Soft, nontender. No hepatosplenomegaly, normal bowel sounds, no guarding or rigidity. EXTREMITIES: No clubbing, no edema, no cyanosis, 2+ pulses and upper and lower extremities. MUSCULOSKELETAL: Muscle strength and tone normal. SPINE: No scoliosis or deformity SKIN: No rashes CENTRAL NERVOUS SYSTEM: Alert and oriented -3. No focal deficits, tone is normal in all 4 extremities. PSYCHIATRIC: Alert and oriented -3. Appropriate affect. Intact judgment and insight. - Labs CBC & Chem 7: 12/03/20 11:25 12/03/20 11:25 Labs: Abnormal Lab Results - Last 24 Hours (Table) 12/05/20 12/05/20 12/06/20 Range/Units 16:56 21:02 11:40 POC Glucose (mg/dL) 122 H 134 H 117 H (75-99) mg/dL Assessment and Plan Plan: Assessment: #1. Acute on chronic hypoxic respiratory failure secondary to acute exacerbati on of systolic CHF, and acute exacerbation of COPD, and underlying lung cancer #2. Recent fall with head trauma #3. Cardiomyopathy with ejection fraction of 40-45%, status post biventricular AICD placement #4. Hypertension #5. Morbid obesity with BMI of 45.1 kg/m #6. History of small cell lung cancer diagnosed in March 2019, completed chemoradiation approximately one year ago #7. Former smoker, currently in remission #8. Previous pleural effusion status post thoracentesis Plan: It is doing well, breathing continues to improve, less bronchospastic Patient already has home oxygen at home, which she wears on as-needed basis she will be retested before she goes home She can complete outpatient prednisone course, and azithromycin for a total of 5 days She can resume her DuoNeb nebulized treatments, and Bevespi Upcoming appointment with Dr. Phelan in the office on December 20 at 8:30 in the morning, She can Just keep that appointment I performed a history & physical examination of the patient and discussed their management with my nurse practitioner, Trish Hanna. I reviewed the nurse practitioner's note and agree with the documented findings and plan of care. L robb sounds are positive for diminished breath sounds throughout the lung marcus. The findings and the impression was discussed with the patient. I attest to the documentation by the nurse practitioner. Time with Patient: Less than 30
[2020-12-06 12:59] VITALS: BP 118/75; PULSE 80; RESP 18; TEMP 97.7
--- NOTE | 2020-12-06 17:59 | P.DS ---
Providers Date of admission: 12/02/20 13:28 Expected date of discharge: 12/06/20 Attending physician: Joey Srinivasan MD Consults: 12/01/20 01:36 Consult Physician Routine Consulting Provider: Patricia Phelan Consult Reason/Comments: known Do you want consulting provider notified?: Yes 12/03/20 12:48 Consult Physician Urgent Consulting Provider: Rocco You Consult Reason/Comments: chest pain Do you want consulting provider notified?: Yes Primary care physician: Arian Forrest MD Hospital Course: Acute Hypoxemic Respiratory Failure COPD Exacerbation Acute on Chronic systolic Heart Failure Vasovagal symptoms Patient was admitted for acute hypoxemic respiratory failure and was found to be diffusely wheezing on exam. She was started on steroids, nebulizers, azithromycin, oxygen and followed clinically with pulmonary consultation. Patient did gradually improve, however in the course of the hospitalization she had episodes where she clinically worsened and had trouble urinating. Consequently, cardiology was consulted and patient was started on Lasix with rapid improvement across 2 additional days of hospitalization. Cardiology felt the patient's dizziness was associated with vasovagal response from coughing and from congestion and recommended starting midodrine, which patient reported improved her symptoms significantly. By the day of discharge, lungs sounded far more clear, but did still have some end expiratory wheezing. Therefore, patient was prescribed a prednisone taper across 15 days, however, azithromycin was discontinued after 5 days of hospitalization. Patient was also started on by mouth Lasix 40 mg daily. She will be followed by oncology, pulmonary, cardiology. She is due for a thoracentesis in 10 days with oncology, and continues to follow with them for lung cancer of the right upper lung. Hypertension resumed home medications Hyperlipidemia resumed statin Small cell lung cancer continued outpatient follow-up I spent 38 minutes coordinating this complex discharge. Assessment: Gen: awake, alert HEENT: normocephalic, atraumatic, good hearing acuity, moist mucous membranes Resp: good air exchange, breathing comfortably with no accessory muscle use, diffuse wheezing in all lung marcus CVS: good distal perfusion x 4, regular rate and rhythm without murmurs GI: soft, NTTP, ND : no SPT, no CVAT, gastelum catheter not present MSK: no pitting edema, no clubbing Neuro: non-focal, moving all extremities Psych: cooperative, euthymic mood Patient Condition at Discharge: Good Plan - Discharge Summary Discharge Rx Participant: No New Discharge Prescriptions: New predniSONE 0 mg PO DIRECTED #30 tab Midodrine [ProAmatine] 5 mg PO AC-BID #60 tab Furosemide [Lasix] 40 mg PO DAILY #30 tab Budesonide-Formot 160-4.5 Mcg [Symbicort 160-4.5 Mcg Inhaler] 2 puff INHAL ATION RT-BID #1 each Continue Aspirin 81 mg PO DAILY Spironolactone [Aldactone] 25 mg PO DAILY #30 tab Ipratropium-Albuterol Nebulize [Duoneb 0.5 mg-3 mg/3 ml Soln] 3 ml INHALATION RT-QID PRN PRN Reason: Shortness Of Breath Glycopyrrolate/Formoterol Fum [Bevespi Aerosphere Inhaler] 2 puff INHALATION RT-BID Apixaban [Eliquis] 5 mg PO BID Sacubitril/Valsartan [Entresto 24 mg-26 mg Tablet] 1 tab PO BID Famotidine 40 mg PO W/SUPPER Discharge Medication List Aspirin 81 mg PO DAILY 07/27/13 [History] Spironolactone [Aldactone] 25 mg PO DAILY #30 tab 01/12/20 [Rx] Apixaban [Eliquis] 5 mg PO BID 11/21/20 [History] Glycopyrrolate/Formoterol Fum [Bevespi Aerosphere Inhaler] 2 puff INHALATION RT- BID 11/21/20 [History] Ipratropium-Albuterol Nebulize [Duoneb 0.5 mg-3 mg/3 ml Soln] 3 ml INHALATION RT-QID PRN 11/21/20 [History] Sacubitril/Valsartan [Entresto 24 mg-26 mg Tablet] 1 tab PO BID 11/21/20 [History] Famotidine 40 mg PO W/SUPPER 11/30/20 [History] Budesonide-Formot 160-4.5 Mcg [Symbicort 160-4.5 Mcg Inhaler] 2 puff INHALATION RT-BID #1 each 12/06/20 [Rx] Furosemide [Lasix] 40 mg PO DAILY #30 tab 12/06/20 [Rx] Midodrine [ProAmatine] 5 mg PO AC-BID #60 tab 12/06/20 [Rx] predniSONE 0 mg PO DIRECTED #30 tab 12/06/20 [Rx] Follow up Appointment(s)/Referral(s): Rocco You MD [STAFF PHYSICIAN] - 12/22/20 4:30 pm () [facility], [NON-STAFF] - Arian Forrest MD [Primary Care Provider] - 12/07/20 10:15 am Patricia Phelan MD [STAFF PHYSICIAN] - 12/20/20 8:30 am Patient Instructions/Handouts: COPD (Chronic Obstructive Pulmonary Disease) (DC) Discharge/Stand Alone Forms: Help In The Home Discharge Disposition: HOME WITH HOME HEALTH SERVICES
== END 2020-12-06 13:21 | disposition home health service (06) | DRG 291 ==
LOC: EC 19:54 → 4SSUR 12-01 01:36 → OBSVTOIN 12-02 13:28
PROVIDERS: ADMIT Internal Medicine; ATTEND Internal Medicine
DX: I11.0 Hypertensive heart disease with heart failure (principal); J96.21 Acute and chronic respiratory failure with hypoxia; C34.11 Malignant neoplasm of upper lobe, right bronchus or lung; J44.0 Chronic obstructive pulmonary disease with (acute) lower respiratory infection; J44.1 Chronic obstructive pulmonary disease with (acute) exacerbation; Z68.42 Body mass index [BMI] 45.0-49.9, adult; J98.11 Atelectasis; I42.8 Other cardiomyopathies; Z79.01 Long term (current) use of anticoagulants; J39.8 Other specified diseases of upper respiratory tract; I50.23 Acute on chronic systolic (congestive) heart failure; E66.01 Morbid (severe) obesity due to excess calories; I48.0 Paroxysmal atrial fibrillation; Z20.822 Contact with and (suspected) exposure to COVID-19; J20.9 Acute bronchitis, unspecified; E87.5 Hyperkalemia; E78.5 Hyperlipidemia, unspecified; I08.0 Rheumatic disorders of both mitral and aortic valves; I25.10 Atherosclerotic heart disease of native coronary artery without angina pectoris; I83.90 Asymptomatic varicose veins of unspecified lower extremity; M19.042 Primary osteoarthritis, left hand; M19.041 Primary osteoarthritis, right hand; M47.816 Spondylosis without myelopathy or radiculopathy, lumbar region; S00.83XA Contusion of other part of head, initial encounter; M17.0 Bilateral primary osteoarthritis of knee; M19.072 Primary osteoarthritis, left ankle and foot; M19.071 Primary osteoarthritis, right ankle and foot; Z79.82 Long term (current) use of aspirin; Z79.899 Other long term (current) drug therapy; Z87.01 Personal history of pneumonia (recurrent); Z88.0 Allergy status to penicillin; W19.XXXA Unspecified fall, initial encounter; Y92.009 Unspecified place in unspecified non-institutional (private) residence as the place of occurrence of the external cause; Z88.7 Allergy status to serum and vaccine; Z88.8 Allergy status to other drugs, medicaments and biological substances; Z92.21 Personal history of antineoplastic chemotherapy; Z92.3 Personal history of irradiation; Z95.810 Presence of automatic (implantable) cardiac defibrillator; Z87.891 Personal history of nicotine dependence; Z80.0 Family history of malignant neoplasm of digestive organs; Z82.3 Family history of stroke; Z82.49 Family history of ischemic heart disease and other diseases of the circulatory system
CPT/HCPCS: 36415; 71045; 71046; 71275; 80048; 80053; 81003; 83605; 83735; 83880; 84100; 84484; 85025; 85610; 85730; 87635; 93005; 94640; 94760; 99285

== ENCOUNTER 2020-12-11 15:23 | Emergency (ER) | payer MEDICARE, BC ==
[2020-12-11 16:58] LABS: Basophils % (A) 0 %; Eosinophils # (A) 0.1 k/uL (0-0.7); Eosinophils % (A) 1 %; HCT 41.4 % (34.0-46.0); HGB 13.2 gm/dL (11.4-16.0); Lymphocytes # (A) 1.1 k/uL (1.0-4.8); Lymphocytes % (A) 8 %; MCH 32.6 pg (25.0-35.0); MCHC 31.8 g/dL (31.0-37.0); MCV 102.4 fL (80.0-100.0); Macrocytosis Slight; Mean Platelet Volume 7.1; Monocytes # (A) 0.5 k/uL (0-1.0); Monocytes % (A) 4 %; Neutrophils # (A) 11.9 k/uL (1.3-7.7); Neutrophils % (A) 87 %; Platelet Count 325 k/uL (150-450); RBC 4.04 m/uL (3.80-5.40); RDW 14.7 % (11.5-15.5); WBC 13.7 k/uL (3.8-10.6)
[2020-12-11 17:08] LABS: Albumin 4.1 g/dL (3.5-5.0); Calcium 9.5 mg/dL (8.4-10.2); Potassium 4.7 mmol/L (3.5-5.1); Total Bilirubin 0.3 mg/dL (0.2-1.3); Total Protein 7.9 g/dL (6.3-8.2)
[2020-12-11 17:13] LABS: INR 0.9 (<1.2); Partial Thromboplastin Time 25.7 sec (22.0-30.0); Prothrombin Time 9.9 sec (9.0-12.0)
[2020-12-11] MEDS ORDERED: SODIUM CHLORIDE 0.9% 500 ML 500 ML IV STA (17:39)
--- NOTE | 2020-12-11 17:56 | ED ---
General Adult HPI - General Chief complaint: Dizziness Stated complaint: Very dizzy Time Seen by Provider: 12/11/20 17:38 Source: patient, family, RN notes reviewed, old records reviewed Mode of arrival: ambulatory Limitations: no limitations - History of Present Illness Initial comments: This is a 70-year-old female alert and oriented 4, presents to the emergency room with complaints of dizziness when moving from sitting to standing. She states that she was just discharged from the hospital on and seen her primary care doctor on Friday. She states up until today she was feeling good and then started to have dizziness upon standing. She was hospitalized last week for similar symptoms and had a fall and was evaluated for the fall at that time. She denies any fevers nausea or vomiting. She denies any chest pain or shortness of breath. -: days(s) (1) Severity scale (1-10): 0 Worsens with: movement Associated Symptoms: denies other symptoms Treatments Prior to Arrival: none - Related Data Home Medications Medication Instructions Recorded Confirmed Aspirin 81 mg PO DAILY 07/27/13 12/11/20 Apixaban [Eliquis] 5 mg PO BID 11/21/20 12/11/20 Glycopyrrolate/Formoterol Fum 2 puff INHALATION RT-BID 11/21/20 12/11/20 [Bevespi Aerosphere Inhaler] Ipratropium-Albuterol Nebulize 3 ml INHALATION RT-QID PRN 11/21/20 12/11/20 [Duoneb 0.5 mg-3 mg/3 ml Soln] Sacubitril/Valsartan [Entresto 24 1 tab PO BID 11/21/20 12/11/20 mg-26 mg Tablet] Famotidine 40 mg PO W/SUPPER 11/30/20 12/11/20 Levofloxacin [Levaquin] 500 mg PO DAILY 12/11/20 12/11/20 predniSONE See Taper PO DIRECTED 12/11/20 12/11/20 Previous Rx's Medication Instructions Recorded Spironolactone [Aldactone] 25 mg PO DAILY #30 tab 01/12/20 Budesonide-Formot 160-4.5 Mcg 2 puff INHALATION RT-BID #1 each 12/06/20 [Symbicort 160-4.5 Mcg Inhaler] Furosemide [Lasix] 40 mg PO DAILY #30 tab 12/06/20 Midodrine [ProAmatine] 5 mg PO AC-BID #60 tab 12/06/20 Allergies Allergy/AdvReac Type Severity Reaction Status Date / Time losartan [Losartan] Allergy Severe Rash/Hives Verified 12/11/20 18:06 Penicillins Allergy Severe Rash/Hives Verified 12/11/20 18:06 cortisone [Cortisone] AdvReac Severe flushed Verified 12/11/20 18:06 skin, depression Tetanus Vaccines and Toxoid AdvReac Severe huge Verified 12/11/20 18:06 [Tetanus Vaccines & Toxoid] localized swelling Review of Systems ROS Statement: Those systems with pertinent positive or pertinent negative responses have been documented in the HPI. ROS Other: All systems not noted in ROS Statement are negative. 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 Completed chemo and radiation. 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 History of Any Multi-Drug Resistant Organisms: None Reported Past Surgical History: Pacemaker Additional Past Surgical History / Comment(s): 2013 BiV AICD/generator change 2013 cardiac cath Past Anesthesia/Blood Transfusion Reactions: No Reported Reaction Additional Past Anesthesia/Blood Transfusion Reaction / Comment(s): Pt hsa never had general or spinal anesthesia. Type of Cardiac Device: Biventricular Pacemaker, AICD Device Placement Date:: 2013 Past Psychological History: No Psychological Hx Reported Smoking Status: Former smoker Past Alcohol Use History: None Reported Past Drug Use History: None Reported - Past Family History Brother(s) Family Medical History: Cancer Additional Family Medical History / Comment(s): pancreatic cancer Father Family Medical History: CVA/TIA, Hypertension Additional Family Medical History / Comment(s): third degree block, stroke Mother Family Medical History: Hypertension General Exam Limitations: no limitations General appearance: alert, in no apparent distress Head exam: Present: normocephalic, other (Bruising to the right forehead from previous fall last week) Eye exam: Present: normal appearance, PERRL, EOMI. Absent: scleral icterus, conjunctival injection, periorbital swelling ENT exam: Present: normal exam, normal oropharynx, mucous membranes moist Neck exam: Present: normal inspection, full ROM. Absent: tenderness, meningismus, lymphadenopathy, thyromegaly Respiratory exam: Present: normal lung sounds bilaterally. Absent: respiratory distress, wheezes, rales, rhonchi, stridor Cardiovascular Exam: Present: regular rate, normal rhythm, normal heart sounds. Absent: systolic murmur, diastolic murmur, rubs, gallop, clicks Extremities exam: Present: normal inspection, full ROM, normal capillary refill. Absent: tenderness, pedal edema, joint swelling, calf tenderness Neurological exam: Present: alert, oriented X3, CN II-XII intact Psychiatric exam: Present: normal affect, normal mood Skin exam: Present: warm, dry, intact, normal color, other (Bruising to bilateral forearms patient states is chronic from blood thinners). Absent: rash, cyanosis, diaphoretic Course Vital Signs 12/11/20 12/11/20 12/11/20 16:21 17:50 19:55 Temperature 96.9 F L 98.1 F Pulse Rate 78 73 Pulse Rate [ 65 Sitting Pulse Oximetery] Pulse Rate [ 85 Standing Pulse Oximetery] Pulse Rate [ 73 Supine Pulse Oximetery] Respiratory 22 20 Rate Blood Pressure 130/60 156/84 Blood Pressure 146/74 [Left Arm Sitting] Blood Pressure 145/68 [Left Arm Standing] Blood Pressure 163/78 [Left Arm Supine] O2 Sat by Pulse 96 98 Oximetry EKG Findings - EKG Comments: EKG Findings:: Paced rhythm with ventricular rate 65, [place] interval 0.128, QRS 0.162, QTC 0.480. no acute changes compared to 12/02/2020 Medical Decision Making - Medical Decision Making I did speak with Dr. Gaytan and Dr. Srinivasan who suggested patient be discharged home and keep her appointments as scheduled for cardiology on December [address] Phelan on December 20. They do not believe that this is orthostatic and she may need dose adjustments of her medications. This will be done on outpatient basis.They will contact her tomorrow to ensure that PT is there as scheduled. Patient was directed to change positions slowly to avoid falls. Patient is agreeable to this plan of care. I did discuss this case with Dr. Morales. - Lab Data Result diagrams: 12/11/20 16:54 12/11/20 16:54 Lab Results 12/11/20 12/11/20 12/11/20 Range/Units 16:54 16:54 16:54 WBC 13.7 H (3.8-10.6) k/uL RBC 4.04 (3.80-5.40) m/uL Hgb 13.2 (11.4-16.0) gm/dL Hct 41.4 (34.0-46.0) % MCV 102.4 H (80.0-100.0) fL MCH 32.6 (25.0-35.0) pg MCHC 31.8 (31.0-37.0) g/dL RDW 14.7 (11.5-15.5) % Plt Count 325 (150-450) k/uL MPV 7.1 Neutrophils % 87 % Lymphocytes % 8 % Monocytes % 4 % Eosinophils % 1 % Basophils % 0 % Neutrophils # 11.9 H (1.3-7.7) k/uL Lymphocytes # 1.1 (1.0-4.8) k/uL Monocytes # 0.5 (0-1.0) k/uL Eosinophils # 0.1 (0-0.7) k/uL Basophils # 0.0 (0-0.2) k/uL Macrocytosis Slight PT 9.9 (9.0-12.0) sec INR 0.9 (<1.2) APTT 25.7 (22.0-30.0) sec Sodium 135 L (137-145) mmol/L Potassium 4.7 (3.5-5.1) mmol/L Chloride 100 (98-107) mmol/L Carbon Dioxide 25 (22-30) mmol/L Anion Gap 10 mmol/L BUN 31 H (7-17) mg/dL Creatinine 1.17 H (0.52-1.04) mg/dL Est GFR (CKD-EPI)AfAm 54 (>60 ml/min/1.73 sqM) Est GFR (CKD-EPI)NonAf 47 (>60 ml/min/1.73 sqM) Glucose 107 H (74-99) mg/dL Calcium 9.5 (8.4-10.2) mg/dL Total Bilirubin 0.3 (0.2-1.3) mg/dL AST 20 (14-36) U/L ALT 23 (4-34) U/L Alkaline Phosphatase 43 (38-126) U/L Troponin I (0.000-0.034) ng/mL Total Protein 7.9 (6.3-8.2) g/dL Albumin 4.1 (3.5-5.0) g/dL 12/11/20 Range/Units 16:54 WBC (3.8-10.6) k/uL RBC (3.80-5.40) m/uL Hgb (11.4-16.0) gm/dL Hct (34.0-46.0) % MCV (80.0-100.0) fL MCH (25.0-35.0) pg MCHC (31.0-37.0) g/dL RDW (11.5-15.5) % Plt Count (150-450) k/uL MPV Neutrophils % % Lymphocytes % % Monocytes % % Eosinophils % % Basophils % % Neutrophils # (1.3-7.7) k/uL Lymphocytes # (1.0-4.8) k/uL Monocytes # (0-1.0) k/uL Eosinophils # (0-0.7) k/uL Basophils # (0-0.2) k/uL Macrocytosis PT (9.0-12.0) sec INR (<1.2) APTT (22.0-30.0) sec Sodium (137-145) mmol/L Potassium (3.5-5.1) mmol/L Chloride (98-107) mmol/L Carbon Dioxide (22-30) mmol/L Anion Gap mmol/L BUN (7-17) mg/dL Creatinine (0.52-1.04) mg/dL Est GFR (CKD-EPI)AfAm (>60 ml/min/1.73 sqM) Est GFR (CKD-EPI)NonAf (>60 ml/min/1.73 sqM) Glucose (74-99) mg/dL Calcium (8.4-10.2) mg/dL Total Bilirubin (0.2-1.3) mg/dL AST (14-36) U/L ALT (4-34) U/L Alkaline Phosphatase (38-126) U/L Troponin I <0.012 (0.000-0.034) ng/mL Total Protein (6.3-8.2) g/dL Albumin (3.5-5.0) g/dL Disposition Clinical Impression: Dizziness Disposition: HOME SELF-CARE Condition: Good Instructions (If sedation given, give patient instructions): Dizziness (ED) Additional Instructions: Keep your appointment with pulmonology and cardiology as scheduled on December 22 and on December 20. Return to the emergency room with any new or worsening symp toms. Is patient prescribed a controlled substance at d/c from ED?: No Referrals: Arian Forrest MD [Primary Care Provider] - 1-2 days Gibson Salgado MD [STAFF PHYSICIAN] - 1-2 days Patricia Phelan MD [STAFF PHYSICIAN] - 1-2 days Time of Disposition: 19:28
--- NOTE | 2020-12-11 18:18 | XR ---
EXAMINATION TYPE: XR chest 2V DATE OF EXAM: 12/11/2020 COMPARISON: 12/03/2020 HISTORY: Dizziness TECHNIQUE: Frontal and lateral views of the chest are obtained. FINDINGS: There is no focal air space opacity, pleural effusion, or pneumothorax seen. Stable cardio mediastinal silhouette and tortuous aorta. The osseous structures are intact. Left AICD noted. IMPRESSION: No acute cardiopulmonary process.
[2020-12-11 18:48] VITALS: PULSE 73
[2020-12-11 19:57] VITALS: BP 156/84; RESP 20; TEMP 98.1
== END 2020-12-11 19:57 | disposition home or self-care (01) ==
LOC: EC 15:23
DX: R42 Dizziness and giddiness (principal); I11.0 Hypertensive heart disease with heart failure; I50.9 Heart failure, unspecified; M19.90 Unspecified osteoarthritis, unspecified site; Z87.891 Personal history of nicotine dependence; Z79.01 Long term (current) use of anticoagulants; Z79.82 Long term (current) use of aspirin; Z79.52 Long term (current) use of systemic steroids; Z79.899 Other long term (current) drug therapy; Z88.0 Allergy status to penicillin; Z88.8 Allergy status to other drugs, medicaments and biological substances
CPT/HCPCS: 36415; 71046; 80053; 84484; 85025; 85610; 85730; 93005; 96360; 99284

== ENCOUNTER 2021-01-19 13:24 | Emergency (ER) | payer MEDICARE, BC ==
[2021-01-19 14:02] VITALS: TEMP 97.5
[2021-01-19] MEDS ORDERED: ALBUTEROL HFA INHALER INHALATION STA (14:55)
[2021-01-19] MEDS ORDERED: methylPREDNISolone SOD SUCCI 125 MG/2 ML VIAL IV STA (15:16)
--- NOTE | 2021-01-19 15:38 | XR ---
EXAMINATION TYPE: XR chest 2V DATE OF EXAM: 01/19/2021 COMPARISON: Chest x-ray December 11, 2020. CTA chest December 01, 2020 HISTORY: Cough. TECHNIQUE: Frontal and lateral views of the chest are obtained. FINDINGS: Persistent cardiomegaly with multi lead pacemaker/defibrillator. Persistent right paratra cheal mass or possible neoplasm . Correlate clinically. Background mild underlying emphysematous fischer ge. No new focal airspace opacity or pneumothorax. The osseous structures are intact. IMPRESSION: Chronic changes and cardiomegaly without new acute pulmonary infiltrate.
[2021-01-19] MEDS ORDERED: cefTRIAXone IN SWFI 1,000 MG/10 ML SYRINGE IVP STA (16:26)
[2021-01-19] MEDS ORDERED: DOXYCYCLINE 100 MG CAP PO STA (16:26)
--- NOTE | 2021-01-19 16:33 | ED ---
General Adult HPI - General Chief complaint: Shortness of Breath Stated complaint: Chest congestion Time Seen by Provider: 01/19/21 14:13 Source: patient, RN notes reviewed, old records reviewed Mode of arrival: ambulatory Limitations: no limitations - History of Present Illness Initial comments: Patient is a 70-year-old female with past medical history remarkable for chronic lung disease on intermittent oxygen at home with recurrent episodes of bronchitis who presents emergency department over concern for bronchitis. Typically she follows up with her PCP, however the office is closed today which is why she presents emergency department for evaluation today. She nurses mild wheezing, as well as a nonproductive cough which is typical of her bronchitis. Denies any fevers, chills, sick contacts. She was vaccinated for COVID-19. Denies any chest pain, abdominal pain, nausea, vomiting. She otherwise states she is at her baseline. She is seeking antibiotics and possibly steroids for her bronchitis. States her cough is nonproductive and denies any sick contacts. - Related Data Home Medications Medication Instructions Recorded Confirmed Apixaban [Eliquis] 5 mg PO BID 11/21/20 01/19/21 Glycopyrrolate/Formoterol Fum 2 puff INHALATION RT-BID 11/21/20 01/19/21 [Bevespi Aerosphere Inhaler] Ipratropium-Albuterol Nebulize 3 ml INHALATION RT-QID PRN 11/21/20 01/19/21 [Duoneb 0.5 mg-3 mg/3 ml Soln] Famotidine 40 mg PO W/SUPPER 11/30/20 01/19/21 ALPRAZolam [Xanax] 0.25 mg PO BID PRN 01/19/21 01/19/21 Triamcinolone 0.1% Cream [Kenalog 1 applicatio TOPICAL BID PRN 01/19/21 01/19/21 0.1% Cream] Previous Rx's Medication Instructions Recorded Spironolactone [Aldactone] 25 mg PO DAILY #30 tab 01/12/20 Furosemide [Lasix] 40 mg PO DAILY #30 tab 12/06/20 Doxycycline Hyclate 100 mg PO BID 7 Days #14 tab 01/19/21 predniSONE [Deltasone] 40 mg PO DAILY 5 Days #10 tab 01/19/21 Allergies Allergy/AdvReac Type Severity Reaction Status Date / Time losartan [Losartan] Allergy Severe Rash/Hives Verified 01/19/21 16:28 Penicillins Allergy Severe Rash/Hives Verified 01/19/21 16:28 cortisone [Cortisone] AdvReac Severe flushed Verified 01/19/21 16:28 skin, depression Tetanus Vaccines and Toxoid AdvReac Severe huge Verified 01/19/21 16:28 [Tetanus Vaccines & Toxoid] localized swelling Review of Systems ROS Statement: Those systems with pertinent positive or pertinent negative responses have been documented in the HPI. Review of Systems: CONST: Denies fever EYES: Denies blurry vision ENT: Denies nasal congestion C/V: Denies Chest pain RESP: Endorses cough. Endorses wheezing. GI: Denies abdominal pain : Denies dysuria SKIN: Denies rash. MSK: Denies joint pain. NEURO: Denies headache ROS Other: All systems not noted in ROS Statement are negative. 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 Completed chemo and radiation. 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 History of Any Multi-Drug Resistant Organisms: None Reported Past Surgical History: Pacemaker Additional Past Surgical History / Comment(s): 2013 BiV AICD/generator change 2013 cardiac cath Past Anesthesia/Blood Transfusion Reactions: No Reported Reaction Additional Past Anesthesia/Blood Transfusion Reaction / Comment(s): Pt hsa never had general or spinal anesthesia. Type of Cardiac Device: Biventricular Pacemaker, AICD Device Placement Date:: 2013 Past Psychological History: No Psychological Hx Reported Smoking Status: Former smoker Past Alcohol Use History: None Reported Past Drug Use History: None Reported - Past Family History Brother(s) Family Medical History: Cancer Additional Family Medical History / Comment(s): pancreatic cancer Father Family Medical History: CVA/TIA, Hypertension Additional Family Medical History / Comment(s): third degree block, stroke Mother Family Medical History: Hypertension General Exam - General Exam Comments Initial Comments: General: Appears in no acute distress. HEAD: Normal with no signs of head trauma. EYES: PERRLA, EOMI, conjunctiva normal, no discharge. ENT: Hearing grossly intact, normal oropharynx. RESPIRATORY: Bilateral mild end expiratory wheezing with an active cough. No increased work of breathing at this time. C/V: Regular rate and rhythm. S1 and S2 auscultated, no edema, peripheral pulses 2+ and intact throughout ABD: Abd is soft, nontender, nondistended EXT: Normal range of motion, no obvious deformity SKIN: No rashes or lesions observed on exposed skin. NEURO: Alert and oriented 4. Limitations: no limitations Course Vital Signs 01/19/21 01/19/21 13:59 17:38 Temperature 97.5 F L Pulse Rate 84 88 Respiratory 26 H 18 Rate Blood Pressure 173/69 163/73 O2 Sat by Pulse 93 L 96 Oximetry Medical Decision Making - Medical Decision Making Based on the patient's presentation and physical exam, I'm concerned for possible infectious etiology for her current symptoms. She denies any history of chronic pulmonary disease and recurrent bronchitis, however due to it being the COVID-19 pandemic I did recommend that we screen her for: Obtain a chest x- ray to rule out pneumonia. She was in agreement this plan. She'll be administered steroids as well as an albuterol inhaler. She was in agreement this plan. Covid swab was negative. Chest x-ray shows no acute pulmonary infiltrate with chronic changes. On reevaluation, patient's breathing is improved. She is in no respiratory distress. I do believe it is safe for her to be discharged home. She'll be given a one-time dose of doxycycline and IV Rocephin here in the department for her bronchitis. I recommended she follow up with her PCP in the next few days and she is in agreement with this plan. She has inhalers and breathing treatments at home. I will provide the patient with a prescription for doxycycline, prednisone. I instructed the patient to follow up with their PCP in the next 3 days.. I explained that the patient should return to the emergency department if they experience any worsening symptoms. Strict return precautions were discussed with the patient. The patient expressed understanding of these instructions. I answered all questions that the patient had. The patient was discharged home in fair condition with their prescriptions and follow up information. - Lab Data Lab Results 01/19/21 Range/Units 14:55 Coronavirus (PCR) Not Detected (Not Detectd) - EKG Data -: EKG Interpreted by Me EKG Comments: 12-lead Electrocardiogram Interpretation Note EKG was reviewed and interpreted by myself. 12-lead ECG performed at 1420 is interpreted by me as revealing atrial sensed ventricular paced rhythm with a history of pacemaker at a rate of 81 beats per minute. Extreme axis deviation. DC interval is 118 ms, QRS duration is 160 ms, QTc is 532 ms.. There were no ST or T wave abnormalities to suggest myocardial ischemia or injury. R wave progression across the precordium was satisfactory. By my interpretation this EKG is non-diagnostic for acute ischemia. Disposition Clinical Impression: Bronchitis, Pulmonary fibrosis Disposition: HOME SELF-CARE Condition: Fair Instructions (If sedation given, give patient instructions): Acute Bronchitis (ED) Prescriptions: predniSONE [Deltasone] 40 mg PO DAILY 5 Days #10 tab Doxycycline Hyclate 100 mg PO BID 7 Days #14 tab Is patient prescribed a controlled substance at d/c from ED?: No Referrals: Arian Forrest MD [Primary Care Provider] - 1-2 days
[2021-01-19 17:38] VITALS: BP 163/73; PULSE 88; RESP 18
== END 2021-01-19 17:38 | disposition home or self-care (01) ==
LOC: EC 13:24
DX: J40 Bronchitis, not specified as acute or chronic (principal); J84.10 Pulmonary fibrosis, unspecified; Z20.822 Contact with and (suspected) exposure to COVID-19; I11.0 Hypertensive heart disease with heart failure; I50.9 Heart failure, unspecified; M19.90 Unspecified osteoarthritis, unspecified site; Z87.891 Personal history of nicotine dependence; Z79.52 Long term (current) use of systemic steroids; Z79.01 Long term (current) use of anticoagulants; Z79.899 Other long term (current) drug therapy
CPT/HCPCS: 94640; 93005; 87635; 71046; 99285; 96374; 96375; J2930; J0696

== ENCOUNTER 2021-02-22 01:11 | Emergency (ER) | payer MEDICARE, BC ==
[2021-02-22 01:28] VITALS: TEMP 97.8
[2021-02-22] MEDS ORDERED: SODIUM CHLORIDE 0.9% 1,000 ML IV STA (01:36)
--- NOTE | 2021-02-22 01:53 | ED ---
Fall HPI - General Chief Complaint: Fall Stated Complaint: Fall Time Seen by Provider: 02/22/21 01:22 Source: patient, EMS, RN notes reviewed, old records reviewed, Caregiver Mode of arrival: EMS Limitations: no limitations - History of Present Illness Initial Comments: This is a 70-year-old female with a fall. Unknown how patient fell apparently out of chair on the ground with significant injury to her forehead abrasions to her forearms and hands. Patient states she was had first under the dresser. 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 Witnessed: no Place Fall Occurred: home Loss of Consciousness: none Prolonged Down Time?: no Symptoms Prior to Fall: none Location: head Severity: moderate Severity scale (1-10): 5 Context: tripped/slipped, history of frequent falls Associated Symptoms: headache - Related Data Home Medications Medication Instructions Recorded Confirmed Apixaban [Eliquis] 5 mg PO BID 11/21/20 01/19/21 Glycopyrrolate/Formoterol Fum 2 puff INHALATION RT-BID 11/21/20 01/19/21 [Bevespi Aerosphere Inhaler] Ipratropium-Albuterol Nebulize 3 ml INHALATION RT-QID PRN 11/21/20 01/19/21 [Duoneb 0.5 mg-3 mg/3 ml Soln] Famotidine 40 mg PO W/SUPPER 11/30/20 01/19/21 ALPRAZolam [Xanax] 0.25 mg PO BID PRN 01/19/21 01/19/21 Triamcinolone 0.1% Cream [Kenalog 1 applicatio TOPICAL BID PRN 01/19/21 01/19/21 0.1% Cream] Previous Rx's Medication Instructions Recorded Spironolactone [Aldactone] 25 mg PO DAILY #30 tab 01/12/20 Furosemide [Lasix] 40 mg PO DAILY #30 tab 12/06/20 Doxycycline Hyclate 100 mg PO BID 7 Days #14 tab 01/19/21 predniSONE [Deltasone] 40 mg PO DAILY 5 Days #10 tab 01/19/21 Allergies Allergy/AdvReac Type Severity Reaction Status Date / Time losartan [Losartan] Allergy Severe Rash/Hives Verified 02/22/21 01:27 Penicillins Allergy Severe Rash/Hives Verified 02/22/21 01:27 cortisone [Cortisone] AdvReac Severe flushed Verified 02/22/21 01:27 skin, depression Tetanus Vaccines and Toxoid AdvReac Severe huge Verified 02/22/21 01:27 [Tetanus Vaccines & Toxoid] localized swelling Review of Systems ROS Statement: Those systems with pertinent positive or pertinent negative responses have been documented in the HPI. ROS Other: All systems not noted in ROS Statement are negative. 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 Completed chemo and radiation. 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 History of Any Multi-Drug Resistant Organisms: None Reported Past Surgical History: Pacemaker Additional Past Surgical History / Comment(s): 2013 BiV AICD/generator change 2013 cardiac cath Past Anesthesia/Blood Transfusion Reactions: No Reported Reaction Additional Past Anesthesia/Blood Transfusion Reaction / Comment(s): Pt hsa never had general or spinal anesthesia. Type of Cardiac Device: Biventricular Pacemaker, AICD Device Placement Date:: 2013 Past Psychological History: No Psychological Hx Reported Smoking Status: Former smoker Past Alcohol Use History: None Reported Past Drug Use History: None Reported - Past Family History Brother(s) Family Medical History: Cancer Additional Family Medical History / Comment(s): pancreatic cancer Father Family Medical History: CVA/TIA, Hypertension Additional Family Medical History / Comment(s): third degree block, stroke Mother Family Medical History: Hypertension General Exam Limitations: physical limitation General appearance: alert, in no apparent distress Head exam: Present: normocephalic, normal inspection. Absent: atraumatic (Patient does have mild abrasion and swelling to forehead) Eye exam: Present: normal appearance, PERRL, EOMI. Absent: scleral icterus, conjunctival injection, periorbital swelling ENT exam: Present: normal exam, mucous membranes moist Neck exam: Present: normal inspection. Absent: tenderness, meningismus, lymphadenopathy Respiratory exam: Present: normal lung sounds bilaterally. Absent: respiratory distress, wheezes, rales, rhonchi, stridor Cardiovascular Exam: Present: regular rate, normal rhythm, normal heart sounds. Absent: systolic murmur, diastolic murmur, rubs, gallop, clicks GI/Abdominal exam: Present: soft, normal bowel sounds. Absent: distended, tenderness, guarding, rebound, rigid Extremities exam: Present: normal inspection, full ROM, normal capillary refill. Absent: tenderness, pedal edema, joint swelling, calf tenderness Back exam: Present: normal inspection Neurological exam: Present: alert, oriented X3, CN II-XII intact Psychiatric exam: Present: normal affect, normal mood Skin exam: Present: warm, dry, intact, normal color. Absent: rash Course Vital Signs 02/22/21 02/22/21 01:18 02:18 Temperature 97.8 F Pulse Rate 76 75 Respiratory 18 18 Rate Blood Pressure 154/73 153/79 O2 Sat by Pulse 97 98 Oximetry - Reevaluation(s) Reevaluation #1: 02/22/21 03:09 Medical record is reviewed Reevaluation #2: 02/22/21 03:09 No chest pain or shortness of breath patient's awake and alert Reevaluation #3: 02/22/21 03:09 Patient informed of results and questions answered Reevaluation #4: 02/22/21 03:09 Patient okay for discharge home Medical Decision Making - Medical Decision Making 70 female to the emergency room today. Patient presents today for evaluation regards to fall. Fall with no significant acute injury. Labwork is otherwise normal x-ray and imaging is negative patient can be discharged home - Lab Data Result diagrams: 02/22/21 01:47 02/22/21 01:47 Lab Results 02/22/21 02/22/21 02/22/21 Range/Units 01:47 01:47 01:47 WBC 6.4 (3.8-10.6) k/uL RBC 3.98 (3.80-5.40) m/uL Hgb 12.7 (11.4-16.0) gm/dL Hct 40.0 (34.0-46.0) % MCV 100.5 H (80.0-100.0) fL MCH 31.9 (25.0-35.0) pg MCHC 31.8 (31.0-37.0) g/dL RDW 14.0 (11.5-15.5) % Plt Count 275 (150-450) k/uL MPV 6.9 Neutrophils % 63 % Lymphocytes % 19 % Monocytes % 10 % Eosinophils % 6 % Basophils % 1 % Neutrophils # 4.0 (1.3-7.7) k/uL Lymphocytes # 1.2 (1.0-4.8) k/uL Monocytes # 0.6 (0-1.0) k/uL Eosinophils # 0.4 (0-0.7) k/uL Basophils # 0.1 (0-0.2) k/uL Macrocytosis Slight PT 9.8 (9.0-12.0) sec INR 0.9 (<1.2) APTT 28.4 (22.0-30.0) sec Sodium 135 L (137-145) mmol/L Potassium 5.4 H (3.5-5.1) mmol/L Chloride 103 (98-107) mmol/L Carbon Dioxide 20 L (22-30) mmol/L Anion Gap 12 mmol/L BUN 23 H (7-17) mg/dL Creatinine 0.97 (0.52-1.04) mg/dL Est GFR (CKD-EPI)AfAm 68 (>60 ml/min/1.73 sqM) Est GFR (CKD-EPI)NonAf 59 (>60 ml/min/1.73 sqM) Glucose 115 H (74-99) mg/dL Plasma Lactic Acid Yousif (0.7-2.0) mmol/L Calcium 8.7 (8.4-10.2) mg/dL Phosphorus 4.3 (2.5-4.5) mg/dL Magnesium 2.2 (1.6-2.3) mg/dL Total Bilirubin 0.4 (0.2-1.3) mg/dL AST 28 (14-36) U/L ALT 14 (4-34) U/L Alkaline Phosphatase 36 L (38-126) U/L Troponin I (0.000-0.034) ng/mL NT-Pro-B Natriuret Pep pg/mL Total Protein 7.7 (6.3-8.2) g/dL Albumin 4.1 (3.5-5.0) g/dL 02/22/21 02/22/21 02/22/21 Range/Units 01:47 01:47 01:47 WBC (3.8-10.6) k/uL RBC (3.80-5.40) m/uL Hgb (11.4-16.0) gm/dL Hct (34.0-46.0) % MCV (80.0-100.0) fL MCH (25.0-35.0) pg MCHC (31.0-37.0) g/dL RDW (11.5-15.5) % Plt Count (150-450) k/uL MPV Neutrophils % % Lymphocytes % % Monocytes % % Eosinophils % % Basophils % % Neutrophils # (1.3-7.7) k/uL Lymphocytes # (1.0-4.8) k/uL Monocytes # (0-1.0) k/uL Eosinophils # (0-0.7) k/uL Basophils # (0-0.2) k/uL Macrocytosis PT (9.0-12.0) sec INR (<1.2) APTT (22.0-30.0) sec Sodium (137-145) mmol/L Potassium (3.5-5.1) mmol/L Chloride (98-107) mmol/L Carbon Dioxide (22-30) mmol/L Anion Gap mmol/L BUN (7-17) mg/dL Creatinine (0.52-1.04) mg/dL Est GFR (CKD-EPI)AfAm (>60 ml/min/1.73 sqM) Est GFR (CKD-EPI)NonAf (>60 ml/min/1.73 sqM) Glucose (74-99) mg/dL Plasma Lactic Acid Yousif 1.4 (0.7-2.0) mmol/L Calcium (8.4-10.2) mg/dL Phosphorus (2.5-4.5) mg/dL Magnesium (1.6-2.3) mg/dL Total Bilirubin (0.2-1.3) mg/dL AST (14-36) U/L ALT (4-34) U/L Alkaline Phosphatase (38-126) U/L Troponin I <0.012 (0.000-0.034) ng/mL NT-Pro-B Natriuret Pep 224 pg/mL Total Protein (6.3-8.2) g/dL Albumin (3.5-5.0) g/dL - EKG Data -: EKG Interpreted by Me (EKG is a paced rhythm of 72 QRS 156 QTc to 35) - Radiology Data Radiology results: report reviewed (CT brain C-spine chest and pelvis x-ray are negative for acute disease), image reviewed Disposition Clinical Impression: Fall Disposition: HOME SELF-CARE Condition: Good Instructions (If sedation given, give patient instructions): Fall Prevention for Older Adults (ED) Is patient prescribed a controlled substance at d/c from ED?: No Referrals: Arian Forrest MD [Primary Care Provider] - 1-2 days
[2021-02-22 02:11] LABS: Basophils # (A) 0.1 k/uL (0-0.2); Basophils % (A) 1 %; Eosinophils # (A) 0.4 k/uL (0-0.7); Eosinophils % (A) 6 %; HGB 12.7 gm/dL (11.4-16.0); Lymphocytes # (A) 1.2 k/uL (1.0-4.8); Lymphocytes % (A) 19 %; MCH 31.9 pg (25.0-35.0); MCHC 31.8 g/dL (31.0-37.0); MCV 100.5 fL (80.0-100.0); Macrocytosis Slight; Mean Platelet Volume 6.9; Monocytes # (A) 0.6 k/uL (0-1.0); Monocytes % (A) 10 %; Neutrophils % (A) 63 %; Platelet Count 275 k/uL (150-450); RBC 3.98 m/uL (3.80-5.40); WBC 6.4 k/uL (3.8-10.6)
[2021-02-22 02:14] LABS: Albumin 4.1 g/dL (3.5-5.0); Calcium 8.7 mg/dL (8.4-10.2); Magnesium 2.2 mg/dL (1.6-2.3); Phosphorus 4.3 mg/dL (2.5-4.5); Total Bilirubin 0.4 mg/dL (0.2-1.3); Total Protein 7.7 g/dL (6.3-8.2)
--- NOTE | 2021-02-22 02:14 | CT ---
EXAMINATION TYPE: CT brain andrea wo con DATE OF EXAM: 02/22/2021 COMPARISON: 11/26/2020 HISTORY: Fall CT DLP: 1729.2 mGycm Automated exposure control for dose reduction was used. Images of the brain and cervical spine obtained without contrast. There is cerebral cortical atrophy. There is some atrophy hypodensity in the periventricular white ma tter. There is no mass effect or midline shift. There is no sign of intracranial hemorrhage. There is mild enlargement of the ventricles. Calvarium is intact. The skull base is intact. There is normal a eration of the mastoid sinuses. The cervical vertebra show some straightening. There is moderate disc space narrowing at C5-6. There is no compression fracture. Facet joints are intact. There is multilevel hypertrophic facet arthropat hy. There is no sign of cervical spine fracture. IMPRESSION: Cerebral atrophy and chronic small vessel ischemia. No acute intracranial abnormality. Cervical spond ylotic changes mainly at C5-6. No fracture seen. No significant change compared to old exam.
[2021-02-22 02:18] LABS: Potassium 5.4 mmol/L (3.5-5.1)
[2021-02-22 02:19] LABS: INR 0.9 (<1.2); Partial Thromboplastin Time 28.4 sec (22.0-30.0); Prothrombin Time 9.8 sec (9.0-12.0)
--- NOTE | 2021-02-22 02:32 | XR ---
EXAMINATION TYPE: XR chest 1V DATE OF EXAM: 02/22/2021 COMPARISON: 01/19/2021 HISTORY: Fall. Chest pain TECHNIQUE: Single view FINDINGS: Heart is top normal in size. There is left axillary pacemaker. There is some linear density at the right lung base consistent with some pleural scarring. There is no heart failure. There is no pleural effusion. IMPRESSION: Right basilar pleural diaphragmatic scarring without change. No acute lung disease. No he art failure.
--- NOTE | 2021-02-22 02:33 | XR ---
EXAMINATION TYPE: XR pelvis AP view DATE OF EXAM: 02/22/2021 COMPARISON: NONE HISTORY: Fall. Pain. TECHNIQUE: Single view FINDINGS: The pelvic ring is intact. Proximal femurs and hip joints are intact and sacroiliac joints are intact there is some amorphous calcification lateral to the right acetabulum measuring 2 cm. This could relate to old trauma. Sacroiliac joints are intact. There is vascular calcification. IMPRESSION: No acute abnormality of the pelvis.
[2021-02-22 05:15] VITALS: PULSE 78
[2021-02-22 05:17] VITALS: BP 149/78; RESP 18
== END 2021-02-22 04:38 | disposition home or self-care (01) ==
LOC: EC 01:11
DX: S00.81XA Abrasion of other part of head, initial encounter (principal); I11.0 Hypertensive heart disease with heart failure; I50.9 Heart failure, unspecified; M19.90 Unspecified osteoarthritis, unspecified site; Z87.891 Personal history of nicotine dependence; Z79.52 Long term (current) use of systemic steroids; Z79.01 Long term (current) use of anticoagulants; Z79.899 Other long term (current) drug therapy; Z88.0 Allergy status to penicillin; W07.XXXA Fall from chair, initial encounter; Y92.009 Unspecified place in unspecified non-institutional (private) residence as the place of occurrence of the external cause
CPT/HCPCS: 70450; 71045; 72125; 72170; 80053; 83605; 83735; 83880; 84100; 84484; 85025; 85610; 85730; 93005; 96360; 96361; 99285

== ENCOUNTER 2021-03-17 01:42 | Emergency (ER) | payer MEDICARE, BC ==
[2021-03-17 01:57] VITALS: RESP 18; TEMP 97.8
--- NOTE | 2021-03-17 02:02 | ED ---
Head Injury HPI - General Chief complaint: Head Injury Stated complaint: Fall Time Seen by Provider: 03/17/21 01:50 Source: patient, RN notes reviewed Mode of arrival: EMS - History of Present Illness Initial comments: This is a pleasant 70-year-old female who presents to emergency arrives via EMS after sustaining an injury to her head. Patient states that she fell asleep in her chair and ended up falling and striking her head on a dresser. Patient has an abrasion to the left frontal aspect of her scalp as well as a hematoma to the right frontal aspect. Patient denies any preceding symptomology. There was no chest pain. No symptoms of syncope. Patient did not pass out. She denies any vision changes or hearing changes. No numbness or tingling. No dizziness. No headache. No neck pain. Patient states she recalls the entire fall. However, when the patient was on the floor she could not get up. Patient states her brother lives with her but is unable to lift her as well. Patient states when EMS got there she was able to stand up on her own. She does use a walker. Patient is on Eliquis secondary to cardiac arrhythmia. Patient denies any other injuries. No back pain. No leg pain. No nausea or vomiting. No abdominal pain. No change in bowel when she urination. No radicular pain. No symptoms of saddle anesthesia. Patient does admit to a fall a few weeks ago. MD Complaint: head injury - Related Data Home Medications Medication Instructions Recorded Confirmed Apixaban [Eliquis] 5 mg PO BID 11/21/20 01/19/21 Glycopyrrolate/Formoterol Fum 2 puff INHALATION RT-BID 11/21/20 01/19/21 [Bevespi Aerosphere Inhaler] Ipratropium-Albuterol Nebulize 3 ml INHALATION RT-QID PRN 11/21/20 01/19/21 [Duoneb 0.5 mg-3 mg/3 ml Soln] Famotidine 40 mg PO W/SUPPER 11/30/20 01/19/21 ALPRAZolam [Xanax] 0.25 mg PO BID PRN 01/19/21 01/19/21 Triamcinolone 0.1% Cream [Kenalog 1 applicatio TOPICAL BID PRN 11/26/21 11/26/21 0.1% Cream] Previous Rx's Medication Instructions Recorded Spironolactone [Aldactone] 25 mg PO DAILY #30 tab 01/12/20 Furosemide [Lasix] 40 mg PO DAILY #30 tab 12/06/20 Doxycycline Hyclate 100 mg PO BID 7 Days #14 tab 01/19/21 predniSONE [Deltasone] 40 mg PO DAILY 5 Days #10 tab 01/19/21 Allergies/Adverse reactions: Allergies Allergy/AdvReac Type Severity Reaction Status Date / Time losartan [Losartan] Allergy Severe Rash/Hives Verified 02/22/21 01:27 Penicillins Allergy Severe Rash/Hives Verified 02/22/21 01:27 cortisone [Cortisone] AdvReac Severe flushed Verified 02/22/21 01:27 skin, depression Tetanus Vaccines and Toxoid AdvReac Severe huge Verified 02/22/21 01:27 [Tetanus Vaccines & Toxoid] localized swelling Review of Systems ROS Statement: Those systems with pertinent positive or pertinent negative responses have been documented in the HPI. ROS Other: All systems not noted in ROS Statement are negative. 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 Completed chemo and radiation. 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 History of Any Multi-Drug Resistant Organisms: None Reported Past Surgical History: Pacemaker Additional Past Surgical History / Comment(s): 2013 BiV AICD/generator change 2013 cardiac cath Past Anesthesia/Blood Transfusion Reactions: No Reported Reaction Additional Past Anesthesia/Blood Transfusion Reaction / Comment(s): Pt hsa never had general or spinal anesthesia. Type of Cardiac Device: Biventricular Pacemaker, AICD Device Placement Date:: 2013 Past Psychological History: No Psychological Hx Reported Smoking Status: Former smoker Past Alcohol Use History: None Reported Past Drug Use History: None Reported - Past Family History Brother(s) Family Medical History: Cancer Additional Family Medical History / Comment(s): pancreatic cancer Father Family Medical History: CVA/TIA, Hypertension Additional Family Medical History / Comment(s): third degree block, stroke Mother Family Medical History: Hypertension General Exam - General Exam Comments Initial Comments: Patient in no distress. Cranial nerves II through XII are intact. No evidence of focal neurologic deficit. Patient does have an obvious hematoma to the right frontal area as well as a small wound to the left frontal area. No evidence of maxillofacial trauma. General appearance: alert, in no apparent distress Head exam: Present: normal inspection, other (No step-off, no tenderness, no crepitus) Eye exam: Present: normal appearance, PERRL, EOMI. Absent: scleral icterus, conjunctival injection, nystagmus, periorbital swelling ENT exam: Present: normal exam, normal oropharynx, mucous membranes moist, TM's normal bilaterally, normal external ear exam. Absent: mucous membranes dry Neck exam: Present: normal inspection. Absent: tenderness, meningismus, lymphadenopathy Respiratory exam: Present: normal lung sounds bilaterally. Absent: respiratory distress, wheezes, rales, rhonchi, stridor Cardiovascular Exam: Present: regular rate, normal rhythm, normal heart sounds. Absent: systolic murmur, diastolic murmur, rubs, gallop, clicks GI/Abdominal exam: Present: soft, normal bowel sounds. Absent: distended, tenderness, guarding, rebound, rigid Extremities exam: Present: normal inspection, full ROM, normal capillary refill. Absent: tenderness, pedal edema, joint swelling, calf tenderness Back exam: Present: normal inspection Neurological exam: Present: alert, oriented X3, CN II-XII intact. Absent: altered, motor sensory deficit, reflexes normal Expanded Patient oriented to: Present: person, place, time Speech: Present: fluid speech Cerebellar function: Finger to Nose: Normal, Heel to [place]: Normal Eye Response: (4) open spontaneously Motor Response: (6) obeys commands Verbal Response: (5) oriented [place] Total: 15 Psychiatric exam: Present: normal affect, normal mood Skin exam: Present: warm, dry, intact, normal color. Absent: rash Course Vital Signs 03/17/21 03/17/21 01:48 03:16 Temperature 97.8 F Pulse Rate 76 81 Respiratory 18 18 Rate Blood Pressure 177/82 148/78 O2 Sat by Pulse 98 97 Oximetry Procedures - Laceration Laceration #1 Site: scalp Size (cm): 2 Description: irregular Depth: simple, single layer Pre-repair: wound explored, irrigated extensively, deep structures intact Size of Sutures: other ([place]) Technique: simple, interrupted Complications: pain Patient Tolerated Procedure: well Medical Decision Making - Medical Decision Making Patient presents after a mechanical fall and head injury after striking her [place]. Patient is neurologically intact. There was no symptoms of syncope. No preceding symptomology. Patient had no chest pain. No abdominal pain. Patient is denying any pain at this point. No severe headache. No nausea or vomiting. Patient is neurologically intact. Computed tomography scan of the brain and cervical spine ordered. Plan for probable discharge. The case was discussed in detail with ED attending physician. Presentation, findings, treatment plan discussed in detail. Disposition Clinical Impression: Closed head injury, Scalp laceration Disposition: HOME SELF-CARE Condition: Good Instructions (If sedation given, give patient instructions): Head Injury (ED) Additional Instructions: Follow-up with your regular physician as directed. Return to the ER immediately if any symptoms worsen, new symptoms arise, or any other problems develop. Medications stay with somebody at all times for the next 24 hours. Staple removal in 10 days Is patient prescribed a controlled substance at d/c from ED?: No Referrals: Arian Forrest MD [Primary Care Provider] - 1-2 days Time of Disposition: 03:22
[2021-03-17] MEDS ORDERED: LIDOCAINE/EPINEPHR/TETRACAINE 5 ML BOTTLE TOPICAL ONE (02:15)
--- NOTE | 2021-03-17 02:36 | CT ---
EXAMINATION TYPE: CT brain heatherine wo con DATE OF EXAM: 03/17/2021 COMPARISON: 03/05/2021 and 02/22/2021 HISTORY: Fall CT DLP: 1781.7 mGycm Automated exposure control for dose reduction was used. There is cerebral cortical atrophy. There is enlargement of the ventricles. There is patchy hypodensi ty in the periventricular white matter. There is no mass effect nor midline shift. There is no eviden ce of intracranial hemorrhage. There is right posterior frontal large scalp hematoma measuring up to 1.2 cm in thickness. There is a small left posterior frontal scalp hematoma measuring 4 mm. The calvarium is intact. The skull base is intact. There is normal aeration of the mastoid sinuses. The cervical vertebra have normal alignment. There is mild disc space narrowing at C5-C6 with spurrin g of the endplates. There is multilevel cervical facet arthropathy. Prevertebral soft tissues are int act. There is thinning of the corpus callosum. There is some pleural and pulmonary scarring at the uriel ng apices noted. IMPRESSION: Cerebral atrophy. Chronic small vessel ischemia. Left and right posterior frontal scalp hematomas norberto ear new compared to old exam. No acute intracranial abnormality. Cervical spondylotic changes in the lower cervical spine mainly at C5-6. No fracture. No change.
[2021-03-17 03:17] VITALS: BP 148/78; PULSE 81
== END 2021-03-17 04:35 | disposition home or self-care (01) ==
LOC: EC 01:42
DX: S01.01XA Laceration without foreign body of scalp, initial encounter (principal); I11.0 Hypertensive heart disease with heart failure; I50.9 Heart failure, unspecified; M19.90 Unspecified osteoarthritis, unspecified site; Z87.891 Personal history of nicotine dependence; Z79.52 Long term (current) use of systemic steroids; Z79.01 Long term (current) use of anticoagulants; Z79.899 Other long term (current) drug therapy; W07.XXXA Fall from chair, initial encounter
CPT/HCPCS: 12001; 70450; 72125; 99284

== ENCOUNTER 2021-04-14 02:04 | Inpatient (IN) | payer MEDICARE, BC ==
--- NOTE | 2021-04-14 02:43 | ED ---
Fall HPI - General Chief Complaint: Fall Stated Complaint: Fall Time Seen by Provider: 04/14/21 02:08 Source: patient, EMS, RN notes reviewed, old records reviewed Mode of arrival: EMS Limitations: no limitations - History of Present Illness Initial Comments: This is a 70-year-old female DF for evaluation. Patient is on [place] had a fall forward out of a recliner hit her head on the dresser no loss of consciousness. Patient resents emergency Department with laceration above right eyelid, wearing glasses some mild brow injury nose and nasal bridge injury. Patient otherwise has no headache denies loss of consciousness denies chest pain shortness breath or abdominal pain. Patient denies syncopal event. MD Complaint: fall -: minutes(s) Fall From: chair When Fall Occurred: 1 hour [place] Fall Witnessed: no Place Fall Occurred: home Prolonged Down Time?: no Symptoms Prior to Fall: none Location: head, face Severity: mild Severity scale (1-10): 3 Context: tripped/slipped Associated Symptoms: denies - Related Data Home Medications Medication Instructions Recorded Confirmed Apixaban [Eliquis] 5 mg PO BID 11/21/20 01/19/21 Glycopyrrolate/Formoterol Fum 2 puff INHALATION RT-BID 11/21/20 01/19/21 [Bevespi Aerosphere Inhaler] Ipratropium-Albuterol Nebulize 3 ml INHALATION RT-QID PRN 11/21/20 01/19/21 [Duoneb 0.5 mg-3 mg/3 ml Soln] Famotidine 40 mg PO W/SUPPER 11/30/20 01/19/21 ALPRAZolam [Xanax] 0.25 mg PO BID PRN 01/19/21 01/19/21 Triamcinolone 0.1% Cream [Kenalog 1 applicatio TOPICAL BID PRN 01/19/21 01/19/21 0.1% Cream] Previous Rx's Medication Instructions Recorded Spironolactone [Aldactone] 25 mg PO DAILY #30 tab 01/12/20 Furosemide [Lasix] 40 mg PO DAILY #30 tab 12/06/20 Doxycycline Hyclate 100 mg PO BID 7 Days #14 tab 01/19/21 predniSONE [Deltasone] 40 mg PO DAILY 5 Days #10 tab 01/19/21 Allergies Allergy/AdvReac Type Severity Reaction Status Date / Time losartan [Losartan] Allergy Severe Rash/Hives Verified 02/22/21 01:27 Penicillins Allergy Severe Rash/Hives Verified 02/22/21 01:27 cortisone [Cortisone] AdvReac Severe flushed Verified 02/22/21 01:27 skin, depression Tetanus Vaccines and Toxoid AdvReac Severe huge Verified 02/22/21 01:27 [Tetanus Vaccines & Toxoid] localized swelling Review of Systems ROS Statement: Those systems with pertinent positive or pertinent negative responses have been documented in the HPI. ROS Other: All systems not noted in ROS Statement are negative. 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 Completed chemo and radiation. 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 History of Any Multi-Drug Resistant Organisms: None Reported Past Surgical History: Pacemaker Additional Past Surgical History / Comment(s): 2013 BiV AICD/generator change 2013 cardiac cath Past Anesthesia/Blood Transfusion Reactions: No Reported Reaction Additional Past Anesthesia/Blood Transfusion Reaction / Comment(s): Pt hsa never had general or spinal anesthesia. Type of Cardiac Device: Biventricular Pacemaker, AICD Device Placement Date:: 2013 Past Psychological History: No Psychological Hx Reported Smoking Status: Former smoker Past Alcohol Use History: None Reported Past Drug Use History: None Reported - Past Family History Brother(s) Family Medical History: Cancer Additional Family Medical History / Comment(s): pancreatic cancer Father Family Medical History: CVA/TIA, Hypertension Additional Family Medical History / Comment(s): third degree block, stroke Mother Family Medical History: Hypertension General Exam General appearance: alert, in no apparent distress Head exam: Present: normocephalic, normal inspection. Absent: atraumatic (2 cm laceration above right eyebrow) Eye exam: Present: normal appearance, PERRL, EOMI. Absent: scleral icterus, conjunctival injection, periorbital swelling ENT exam: Present: normal exam, mucous membranes moist Neck exam: Present: normal inspection. Absent: tenderness, meningismus, lymphadenopathy Respiratory exam: Present: normal lung sounds bilaterally. Absent: respiratory distress, wheezes, rales, rhonchi, stridor Cardiovascular Exam: Present: regular rate, normal rhythm, normal heart sounds. Absent: systolic murmur, diastolic murmur, rubs, gallop, clicks GI/Abdominal exam: Present: soft, normal bowel sounds. Absent: distended, tenderness, guarding, rebound, rigid Extremities exam: Present: normal inspection, full ROM, normal capillary refill. Absent: tenderness, pedal edema, joint swelling, calf tenderness Back exam: Present: normal inspection Neurological exam: Present: alert, oriented X3, CN II-XII intact Psychiatric exam: Present: normal affect, normal mood Skin exam: Present: warm, dry, intact, normal color. Absent: rash Course Vital Signs 04/14/21 02:07 Temperature 98.2 F Pulse Rate 77 Respiratory 18 Rate Blood Pressure 196/67 O2 Sat by Pulse 99 Oximetry - Reevaluation(s) Reevaluation #1: 04/14/21 02:48 Medical record is reviewed Reevaluation #2: 04/14/21 02:48 Patient did have syncopal event in computed tomography scan, evaluations or changing Reevaluation #3: 04/14/21 05:00 Patient continues to have another recurrent syncopal event here in the ER Reevaluation #4: 04/14/21 05:00 Patient is informed of results and questions are answered - Consultations Consultation #1: Spoke with sound who agrees to admit this patient Procedures - Laceration Laceration #1 Consent Obtained: verbal consent Indication: laceration Site: face Size (cm): 2 Description: linear Depth: simple, single layer Anesthetic Used: lidocaine 1%, with epi Type of Sutures: nylon Size of Sutures: 5-0 Technique: simple, interrupted Patient Tolerated Procedure: well Medical Decision Making - Medical Decision Making 70 female to the emergency department for evaluation. Patient was presented with fall from her chair. Patient has laceration above right eyebrow. Patient then had 2 syncopal events here in the emergency department. Patient be admitted for recurrent syncope laceration is repaired. Patient continues to deny chest pain shortness of breath headache or abdominal pain - Lab Data Result diagrams: 04/14/21 03:11 04/14/21 03:11 Lab Results 04/14/21 04/14/21 04/14/21 Range/Units 03:11 03:11 03:11 WBC 8.1 (3.8-10.6) k/uL RBC 4.05 (3.80-5.40) m/uL Hgb 13.2 (11.4-16.0) gm/dL Hct 40.7 (34.0-46.0) % MCV 100.6 H (80.0-100.0) fL MCH 32.7 (25.0-35.0) pg MCHC 32.5 (31.0-37.0) g/dL RDW 15.2 (11.5-15.5) % Plt Count 281 (150-450) k/uL MPV 7.0 Neutrophils % 78 % Lymphocytes % 13 % Monocytes % 6 % Eosinophils % 1 % Basophils % 1 % Neutrophils # 6.3 (1.3-7.7) k/uL Lymphocytes # 1.0 (1.0-4.8) k/uL Monocytes # 0.5 (0-1.0) k/uL Eosinophils # 0.1 (0-0.7) k/uL Basophils # 0.1 (0-0.2) k/uL Macrocytosis Slight PT 10.0 (9.0-12.0) sec INR 0.9 (<1.2) APTT 27.0 (22.0-30.0) sec D-Dimer 1.17 H (<0.60) mg/L FEU Sodium 137 (137-145) mmol/L Potassium 6.0 H (3.5-5.1) mmol/L Chloride 106 (98-107) mmol/L Carbon Dioxide 21 L (22-30) mmol/L Anion Gap 10 mmol/L BUN 21 H (7-17) mg/dL Creatinine 0.93 (0.52-1.04) mg/dL Est GFR (CKD-EPI)AfAm 72 (>60 ml/min/1.73 sqM) Est GFR (CKD-EPI)NonAf 62 (>60 ml/min/1.73 sqM) Glucose 117 H (74-99) mg/dL Calcium 8.8 (8.4-10.2) mg/dL Phosphorus 3.9 (2.5-4.5) mg/dL Magnesium 2.0 (1.6-2.3) mg/dL Total Bilirubin 1.0 (0.2-1.3) mg/dL AST 43 H (14-36) U/L ALT 14 (4-34) U/L Alkaline Phosphatase 27 L (38-126) U/L Troponin I (0.000-0.034) ng/mL NT-Pro-B Natriuret Pep pg/mL Total Protein 8.1 (6.3-8.2) g/dL Albumin 4.1 (3.5-5.0) g/dL 04/14/21 04/14/21 Range/Units 03:11 03:11 WBC (3.8-10.6) k/uL RBC (3.80-5.40) m/uL Hgb (11.4-16.0) gm/dL Hct (34.0-46.0) % MCV (80.0-100.0) fL MCH (25.0-35.0) pg MCHC (31.0-37.0) g/dL RDW (11.5-15.5) % Plt Count (150-450) k/uL MPV Neutrophils % % Lymphocytes % % Monocytes % % Eosinophils % % Basophils % % Neutrophils # (1.3-7.7) k/uL Lymphocytes # (1.0-4.8) k/uL Monocytes # (0-1.0) k/uL Eosinophils # (0-0.7) k/uL Basophils # (0-0.2) k/uL Macrocytosis PT (9.0-12.0) sec INR (<1.2) APTT (22.0-30.0) sec D-Dimer (<0.60) mg/L FEU Sodium (137-145) mmol/L Potassium (3.5-5.1) mmol/L Chloride (98-107) mmol/L Carbon Dioxide (22-30) mmol/L Anion Gap mmol/L BUN (7-17) mg/dL Creatinine (0.52-1.04) mg/dL Est GFR (CKD-EPI)AfAm (>60 ml/min/1.73 sqM) Est GFR (CKD-EPI)NonAf (>60 ml/min/1.73 sqM) Glucose (74-99) mg/dL Calcium (8.4-10.2) mg/dL Phosphorus (2.5-4.5) mg/dL Magnesium (1.6-2.3) mg/dL Total Bilirubin (0.2-1.3) mg/dL AST (14-36) U/L ALT (4-34) U/L Alkaline Phosphatase (38-126) U/L Troponin I <0.012 (0.000-0.034) ng/mL NT-Pro-B Natriuret Pep 207 pg/mL Total Protein (6.3-8.2) g/dL Albumin (3.5-5.0) g/dL - EKG Data -: EKG Interpreted by Me (EKG is paced rhythm 79 ME 96 QRS time QTC 155) - Radiology Data Radiology results: report reviewed (CT brain C-spine CT angios chest is negative for acute disease), image reviewed Disposition Clinical Impression: Syncope, Fall, Recurrent syncope, Right eyelid laceration Disposition: ADMITTED IP TO THIS HOSP Condition: Good Is patient prescribed a controlled substance at d/c from ED?: No Referrals: Arian Forrest MD [Primary Care Provider] - 1-2 days
[2021-04-14] MEDS ORDERED: SODIUM CHLORIDE 0.9% 1,000 ML IV STA (02:47)
--- NOTE | 2021-04-14 02:54 | CT ---
EXAMINATION TYPE: CT brain heatherine wo con DATE OF EXAM: 04/14/2021 COMPARISON: 03/17/2021 HISTORY: fall CT DLP: 1640.9 mGycm Automated exposure control for dose reduction was used. There is mild right frontal scalp hematoma measuring up to 6 mm in thickness. There is cerebral atrop hy. There is no mass effect or midline shift. There is no sign of intracranial hemorrhage. There is h ypodensity in the periventricular white matter. The calvarium is intact. There is normal aeration of the mastoid sinuses. Skull base is intact. The cervical vertebra show some mild straightening. There is degenerative mild disc space narrowing a t C5-6 with spurring of the endplates. Facet joints are intact. There is normal aeration of the masto id sinuses. IMPRESSION: Cerebral atrophy and chronic small vessel ischemia. Mild right frontal scalp hematoma. Mild degenerative disc changes at C5-6. No fracture. Right frontal scalp hematoma is improved compared to the old exam. Cervical spine unchanged.
--- NOTE | 2021-04-14 03:08 | CT ---
EXAMINATION TYPE: CT facial bones wo con DATE OF EXAM: 04/14/2021 COMPARISON: None HISTORY: fall CT DLP: 1640.9 mGycm Automated exposure control for dose reduction was used. Images obtained from the bottom of the mandible to the top of the frontal sinuses without contrast. The mandibular ring is intact. Temporomandibular joints are intact. Zygomatic arches appear normal. A xilla is intact. There is no evidence of orbital blowout fracture. The orbital margins are intact. Th ere is no retro-orbital mass. There is fairly normal aeration of the paranasal sinuses. I see no bony destructive process. Nasal bone appears intact. Maxillary spine is intact. IMPRESSION: Negative CT scan of the facial bones. Minimal soft tissue swelling anterior to the right orbit.
[2021-04-14 03:26] LABS: Basophils # (A) 0.1 k/uL (0-0.2); Basophils % (A) 1 %; Eosinophils # (A) 0.1 k/uL (0-0.7); Eosinophils % (A) 1 %; HCT 40.7 % (34.0-46.0); HGB 13.2 gm/dL (11.4-16.0); Lymphocytes % (A) 13 %; MCH 32.7 pg (25.0-35.0); MCHC 32.5 g/dL (31.0-37.0); MCV 100.6 fL (80.0-100.0); Macrocytosis Slight; Monocytes # (A) 0.5 k/uL (0-1.0); Monocytes % (A) 6 %; Neutrophils # (A) 6.3 k/uL (1.3-7.7); Neutrophils % (A) 78 %; Platelet Count 281 k/uL (150-450); RBC 4.05 m/uL (3.80-5.40); RDW 15.2 % (11.5-15.5); WBC 8.1 k/uL (3.8-10.6)
[2021-04-14 03:36] LABS: Albumin 4.1 g/dL (3.5-5.0); Calcium 8.8 mg/dL (8.4-10.2); Phosphorus 3.9 mg/dL (2.5-4.5); Total Protein 8.1 g/dL (6.3-8.2)
[2021-04-14 03:37] LABS: INR 0.9 (<1.2)
[2021-04-14] MEDS ORDERED: LORazepam 2 MG/ML INJ IV PRN (04:57)
[2021-04-14] MEDS ORDERED: MORPHINE SULFATE 4 MG/ML SYRINGE IV PRN (04:57)
[2021-04-14] MEDS ORDERED: ONDANSETRON 4 MG/2 ML VIAL IVP PRN (04:57)
[2021-04-14] MEDS ORDERED: NALOXONE 0.4 MG/ML 1 ML VIAL IV PRN (04:57)
--- NOTE | 2021-04-14 05:29 | CT ---
EXAMINATION TYPE: CT angio chest DATE OF EXAM: 04/14/2021 COMPARISON: 12/01/2020 HISTORY: pe CT DLP: 1326.2 mGycm Automated exposure control for dose reduction was used. CONTRAST: Performed with IV Contrast, patient injected with 80 mL of Isovue 370. Images obtained from the thoracic inlet to the diaphragm with IV contrast. There are 3-D post process ed images. There is some consolidation in the right paratracheal region with a partially calcified pretracheal m ass that measures 3 cm. There is some mild pleural thickening at the right lung apex. Thoracic aorta is atheromatous. There is no evidence of filling defect in the pulmonary arteries. There is some mild interstitial infiltrates in the mid lung marcus bilaterally. There is a small right pleural effusion . The thoracic spine is intact. Sternum is intact. There is no compression fracture.. Heart is border line enlarged. There is no pericardial effusion. IMPRESSION: No evidence of pulmonary embolism. Right paratracheal masslike consolidation with pretracheal partly calcified mass that appears not significantly different than last exam. Small right pleural effusion. Chest not significantly different overall than last exam.
[2021-04-14 05:31] LABS: Magnesium 1.9 mg/dL (1.6-2.3); Phosphorus 4.1 mg/dL (2.5-4.5); Total Bilirubin 1.8 mg/dL (0.2-1.3); Total Protein 7.9 g/dL (6.3-8.2)
[2021-04-14] MEDS: SODIUM CHLORIDE 0.9% 1,000 ML IV SCH ×2 (05:50→21:26)
--- NOTE | 2021-04-14 05:59 | P.HPIM ---
History of Present Illness H&P Date: 04/14/21 Chief Complaint: syncope 70 year old female with hypertension , DM , COPD on 2 L NC patient comes in due to a fall at home , from what seems to be a syncopal episode, that she has been getting a lot of these lately , she describes the episodes like sleeping spells. she would wake up and realize that she was not sleeping, but denies any symptoms before or after the episode, no report of tongue biting, loss of bladder or bowel control, no wittnessed seizure like activity. since she was having frequent episodes of passing out, family started sending someone to spend the night with her everynight. to keep her safe. today while sitting on her recliner, she suddenly fell and passed out again , no associated chest pain , trouble breathing, fever, chills, profuse sweating, palpitations. no GI symptoms , no urinary changes. she was brought in for evaluation as these episodes are becoming more frequent and recently results in requiring some stitches. and resulted in lot of bruising this time ,she had a cut over right eye lid. imaging in the ED showed no acute fractures bood work over all showed elevated D dimer, and CTA of the chest showed no evidence of acute PE> patient is status post pacemaker ,for unknown reason, she knows that she has electrical problem in her heart. Review of Systems Pertinent positives as noted in HPI. All other systems were reviewed and are negative All systems: negative Past Medical History Past Medical History: Cancer, Heart Failure, Hypertension, Osteoarthritis (OA), Pneumonia, Syncope Additional Past Medical History / Comment(s): P malignant HTN with pulmonary vascular congestion/R upper lung mass. Completed chemo and radiation. Other hx: Nonischemic cardiomyopathy, chronic CHF, CHB with BiV AICD, bronchitis, arthritis in fingers/bilateral knees/toes/lumbar spine, tendonitis R ankle, vari cosities, lung mass (small cell)pressing on pulmonary artry, bronchoscope done. History of Any Multi-Drug Resistant Organisms: None Reported Past Surgical History: Pacemaker Additional Past Surgical History / Comment(s): 2013 BiV AICD/generator change 2013 cardiac cath Past Anesthesia/Blood Transfusion Reactions: No Reported Reaction Additional Past Anesthesia/Blood Transfusion Reaction / Comment(s): Pt hsa never had general or spinal anesthesia. Type of Cardiac Device: Biventricular Pacemaker, AICD Device Placement Date:: 2013 Past Psychological History: No Psychological Hx Reported Smoking Status: Former smoker Past Alcohol Use History: None Reported Past Drug Use History: None Reported - Past Family History Brother(s) Family Medical History: Cancer Additional Family Medical History / Comment(s): pancreatic cancer Father Family Medical History: CVA/TIA, Hypertension Additional Family Medical History / Comment(s): third degree block, stroke Mother Family Medical History: Hypertension Medications and Allergies Home Medications Medication Instructions Recorded Confirmed Type Spironolactone [Aldactone] 25 mg PO DAILY #30 tab 01/12/20 01/19/21 Rx Apixaban [Eliquis] 5 mg PO BID 11/21/20 01/19/21 History Glycopyrrolate/Formoterol Fum 2 puff INHALATION RT-BID 11/21/20 01/19/21 History [Bevespi Aerosphere Inhaler] Ipratropium-Albuterol Nebulize 3 ml INHALATION RT-QID PRN 11/21/20 01/19/21 History [Duoneb 0.5 mg-3 mg/3 ml Soln] Famotidine 40 mg PO W/SUPPER 11/30/20 01/19/21 History Furosemide [Lasix] 40 mg PO DAILY #30 tab 12/06/20 01/19/21 Rx ALPRAZolam [Xanax] 0.25 mg PO BID PRN 01/19/21 01/19/21 History Doxycycline Hyclate 100 mg PO BID 7 Days #14 tab 01/19/21 Rx Triamcinolone 0.1% Cream [Kenalog 1 applicatio TOPICAL BID PRN 01/19/21 01/19/21 History 0.1% Cream] predniSONE [Deltasone] 40 mg PO DAILY 5 Days #10 tab 01/19/21 Rx Allergies Allergy/AdvReac Type Severity Reaction Status Date / Time losartan [Losartan] Allergy Severe Rash/Hives Verified 02/22/21 01:27 Penicillins Allergy Severe Rash/Hives Verified 02/22/21 01:27 cortisone [Cortisone] AdvReac Severe flushed Verified 02/22/21 01:27 skin, depression Tetanus Vaccines and Toxoid AdvReac Severe huge Verified 02/22/21 01:27 [Tetanus Vaccines & Toxoid] localized swelling Physical Exam Vitals: Vital Signs Temp Pulse Resp BP Pulse Ox 04/14/21 02:07 98.2 F 77 18 196/67 99 Intake and Output 04/13/21 04/13/21 04/14/21 14:59 22:59 06:59 Other: Weight 120.656 kg Constitutional: No acute distress, conversant, pleasant Eyes: Anicteric sclerae, moist conjunctiva, Pupils equal round reactive to light ENMT: NC/multiple bruising and ecchymosis over the face and scalp of different ages, there is a skin cut over the right eyebrow is currently losing blood slowly Oropharynx clear, no erythema, or exudates Neck: Supple, no masses, or JVD No carotid bruits No thyromegaly Lungs: Clear to auscultation Clear to percussion Normal respiratory effort, no accessory muscle use Cardiovascular: Heart regular in rate and rhythm, No murmurs, gallops, or rubs +1 bilateral peripheral edema Abdominal: Soft Nontender, no guarding, rebound or rigidity Abdomen moving with respiration Normoactive bowel sounds No hepatomegaly, No splenomegaly No palpable mass No abdominal wall hernia noted Skin: Normal temperature, tone, texture, turgor No induration No subcutaneous nodules No rash, lesions No ulcers Extremities: No digital cyanosis No clubbing Pedal pulses intact and symmetrical Radial pulses intact and symmetrical + calf tenderness bilaterally but no erythema noted Psychiatric: Alert and oriented to person, place and time Appropriate affect fair judgement Neuro Muscles Strength 5/5 in bilateral upper extremities and 3/5 over bilateral lower extremities Sensation to light touch grossly present throughout Cranial nerves II-XII grossly intact No focal sensory deficits Lymphatics: no palpable cervical or supraclavicular , or inguinal lymph nodes Results CBC & Chem 7: 04/14/21 03:11 04/14/21 04:49 Labs: Abnormal Lab Results - Last 24 Hours (Table) 04/14/21 04/14/21 04/14/21 Range/Units 03:11 03:11 03:11 MCV 100.6 H (80.0-100.0) fL D-Dimer 1.17 H (<0.60) mg/L FEU Sodium (137-145) mmol/L Potassium 6.0 H (3.5-5.1) mmol/L Chloride (98-107) mmol/L Carbon Dioxide 21 L (22-30) mmol/L BUN 21 H (7-17) mg/dL Glucose 117 H (74-99) mg/dL Calcium (8.4-10.2) mg/dL Total Bilirubin (0.2-1.3) mg/dL AST 43 H (14-36) U/L Alkaline Phosphatase 27 L (38-126) U/L 04/14/21 Range/Units 04:49 MCV (80.0-100.0) fL D-Dimer (<0.60) mg/L FEU Sodium 134 L (137-145) mmol/L Potassium (3.5-5.1) mmol/L Chloride 110 H (98-107) mmol/L Carbon Dioxide 16 L (22-30) mmol/L BUN 20 H (7-17) mg/dL Glucose 107 H (74-99) mg/dL Calcium 8.0 L (8.4-10.2) mg/dL Total Bilirubin 1.8 H (0.2-1.3) mg/dL AST 63 H (14-36) U/L Alkaline Phosphatase 22 L (38-126) U/L Assessment and Plan Assessment: Recurrent syncopal episodes rule out underlying cardiac causes Status post pacemaker Cardiac monitoring Surrogate pacemaker Trend troponins Fall precautions PT eval Cardiology consult Supportive care Continue with Eliquis for now Hyperkalemia restart spironolactone cautiously at the lower level Chronic conditions Diabetes mellitus insulin sliding scale Hypertension resume cardiac meds hold spironolactone DVT prophylaxis on Eliquis Full code Anticipated length of stay more than 2 midnights
[2021-04-14] MEDS: INSULIN ASPART (NovoLOG) 100 UNIT/ML VIAL SQ SCH ×4 (09:25→22:36)
[2021-04-14] MEDS: FORMOTEROL FUMARATE 20 MCG/2 ML NEBU INHALATION SCH ×2 (09:54→20:31)
--- NOTE | 2021-04-14 09:56 | US ---
EXAMINATION TYPE: US venous doppler duplex LE DATE OF EXAM: 04/14/2021 8:58 AM COMPARISON: NONE CLINICAL HISTORY: rule out DVT. SOB, Bilateral edema, Syncope SIDE PERFORMED: Bilateral TECHNIQUE: The lower extremity deep venous system is examined utilizing real time linear array sonog lou with graded compression, doppler sonography and color-flow sonography. VESSELS IMAGED: Common Femoral Vein Deep Femoral Vein Greater Saphenous Vein * Femoral Vein Popliteal Vein Small Saphenous Vein * Proximal Calf Veins (* superficial vessels) Limited exam due to patient body habitus. Bilateral lower extremities:Grayscale, color doppler, spectral doppler imaging performed of the deep veins of the lower extremities. There is maintained flow, compressibility, vascular waveforms. IMPRESSION: Limited study due to patient body habitus. No sonographic findings of deep vein thrombosis of the low er extremities.
[2021-04-14] MEDS: PANTOPRAZOLE 40 MG/10 ML VIAL IV SCH (10:10)
[2021-04-14] MEDS: APIXABAN 5 MG TAB PO SCH ×2 (10:11→22:19)
[2021-04-14 10:25] LABS: Basophils % (A) 0 %; Eosinophils # (A) 0.1 k/uL (0-0.7); Eosinophils % (A) 1 %; HCT 38.7 % (34.0-46.0); HGB 12.3 gm/dL (11.4-16.0); Hypochromasia Slight; Lymphocytes # (A) 0.7 k/uL (1.0-4.8); Lymphocytes % (A) 10 %; MCHC 31.8 g/dL (31.0-37.0); MCV 103.8 fL (80.0-100.0); Macrocytosis Slight; Monocytes # (A) 0.5 k/uL (0-1.0); Monocytes % (A) 7 %; Neutrophils # (A) 5.7 k/uL (1.3-7.7); Neutrophils % (A) 80 %; Platelet Count 242 k/uL (150-450); RBC 3.72 m/uL (3.80-5.40); RDW 14.6 % (11.5-15.5); WBC 7.2 k/uL (3.8-10.6)
[2021-04-14] MEDS: HYDROcodone/APAP 5-325MG 1 EACH TAB PO PRN ×3 (10:59→22:19)
[2021-04-14 11:50] LABS: Glucose,Whole Blood 102 mg/dL (75-99)
[2021-04-14] MEDS ORDERED: FUROSEMIDE 20 MG TAB PO PRN (13:24)
[2021-04-14] MEDS ORDERED: ALPRAZolam 0.25 MG TAB PO PRN (13:24)
[2021-04-14 16:22] LABS: Glucose,Whole Blood 109 mg/dL (75-99)
[2021-04-14] MEDS: IPRATROPIUM-ALBUTEROL 3 ML NEB INHALATION PRN ×2 (16:43→20:31)
[2021-04-14] MEDS: LEVOFLOXACIN 500MG-D5W PMX 500 MG in DEXTROSE/WATER 1 100ML.BAG IVPB SCH (17:06)
[2021-04-14] MEDS: FAMOTIDINE 20 MG TAB PO SCH (17:10)
[2021-04-14 22:03] LABS: Glucose,Whole Blood 168 mg/dL (75-99)
[2021-04-14] MEDS: METOPROLOL SUCCINATE (ER) 50 MG TAB.ER.24H PO SCH (22:19)
[2021-04-15] MEDS: NITROGLYCERIN SL TABS 0.4 MG TAB SUBLINGUAL PRN ×2 (00:16→00:25)
[2021-04-15] MEDS ORDERED: IPRATROPIUM 0.5 MG/2.5 ML NEBU INHALATION STA (00:22)
--- NOTE | 2021-04-15 00:45 | P.PN ---
Progress Note - Text Progress Note Date: 04/15/21 patient admitted for frequent falls, described as waking up and finding her self on the floor with serious bruises and injuries currently complaining of tightness in the chest , blood pressre elevated lungs with ranchorous breathing patient given nitro SL, morphine check stat trop EKG showed paced rhythm clonidine prn for systolic blood pressure > 180 ipratropium nebulized (patient refused duoneb) await cardiology input
[2021-04-15] MEDS ORDERED: cloNIDine HCL 0.2 MG TAB PO PRN (02:10)
[2021-04-15 06:49] LABS: Glucose,Whole Blood 114 mg/dL (75-99)
[2021-04-15] MEDS: PANTOPRAZOLE 40 MG/10 ML VIAL IV SCH (08:48)
[2021-04-15] MEDS: APIXABAN 5 MG TAB PO SCH ×2 (08:48→20:40)
[2021-04-15] MEDS: SPIRONOLACTONE 25 MG TAB PO SCH (08:48)
[2021-04-15] MEDS: HYDROcodone/APAP 5-325MG 1 EACH TAB PO PRN ×3 (08:48→22:05)
[2021-04-15] MEDS: METOPROLOL SUCCINATE (ER) 50 MG TAB.ER.24H PO SCH ×2 (08:48→20:40)
[2021-04-15] MEDS: ASPIRIN 81 MG PO SCH (08:48)
[2021-04-15] MEDS: INSULIN ASPART (NovoLOG) 100 UNIT/ML VIAL SQ SCH ×4 (08:49→20:38)
[2021-04-15] MEDS: FORMOTEROL FUMARATE 20 MCG/2 ML NEBU INHALATION SCH ×2 (09:02→20:33)
[2021-04-15] MEDS: IPRATROPIUM-ALBUTEROL 3 ML NEB INHALATION PRN ×2 (09:02→20:33)
[2021-04-15 09:08] LABS: Basophils # (A) 0.02 X 10*3/uL (0.00-0.10); Basophils % (A) 0.3 %; Eosinophils # (A) 0.05 X 10*3/uL (0.04-0.35); Eosinophils % (A) 0.8 %; HCT 37.9 % (37.2-46.3); HGB 11.7 g/dL (12.0-15.0); Immature Grans, Automated 0.9 %; Lymphocytes # (A) 0.99 X 10*3/uL (0.90-5.00); Lymphocytes % (A) 15.6 %; MCH 31.3 pg (27.0-32.0); MCHC 30.9 g/dL (32.0-37.0); MCV 101.3 fL (80.0-97.0); Mean Platelet Volume 9.5 fL (9.5-12.2); Monocytes # (A) 0.64 X 10*3/uL (0.20-1.00); Monocytes % (A) 10.1 %; NRBC Per 100 WBC 0 /100 WBCS (0.0-0.0); Neutrophils # (A) 4.58 X 10*3/uL (1.80-7.70); Neutrophils % (A) 72.3 %; Platelet Count 236 X 10*3/uL (140-440); RBC 3.74 X 10*6/uL (4.10-5.20); WBC 6.34 X 10*3/uL (4.50-10.00)
[2021-04-15 09:20] LABS: Albumin 3.6 g/dL (3.8-4.9); Albumin/Globulin Ratio 1.33 (1.60-3.17); Anion Gap 11.7 mmol/L (10.00-18.00); BUN/Creat Ratio 16.11 Ratio (12.00-20.00); Blood Urea Nitrogen 14.5 mg/dL (9.0-27.0); Calcium 8.2 mg/dL (8.7-10.3); Carbon Dioxide 18.3 mmol/L (20.0-27.5); Globulin 2.7 g/dL (1.6-3.3); Non-African American GFR(CKD) 63.9 (60.0-200.0); Potassium 4.3 mmol/L (3.5-5.5); Total Bilirubin 0.2 mg/dL (0.30-1.20); Total Protein 6.3 g/dL (6.2-8.2)
[2021-04-15 11:24] LABS: Glucose,Whole Blood 108 mg/dL (75-99)
--- NOTE | 2021-04-15 12:20 | P.PN ---
Subjective Progress Note Date: 04/15/21 Principal diagnosis: Patient feels okay still weak Constitutional: No acute distress, conversant, pleasant Eyes: Anicteric sclerae, moist conjunctiva, no lid-lag PERRLA ENMT: NC/AT Oropharynx clear, no erythema, exudates Neck: Supple, FROM, no masses, or JVD No carotid bruits No thyromegaly Lungs: Clear to auscultation Clear to percussion Normal respiratory effort, no accessory muscle use Cardiovascular: Heart regular in rate and rhythm, No murmurs, gallops, or rubs No peripheral edema Abdominal: Soft Nontender, no guarding, rebound or rigidity Abdomen moving with respiration Normoactive bowel sounds No hepatomegaly, No splenomegaly No palpable mass No abdominal wall hernia noted Skin: Normal temperature, tone, texture, turgor No induration No subcutaneous nodules No rash, lesions No ulcers Extremities: No digital cyanosis No clubbing Pedal pulses intact and symmetrical Radial pulses intact and symmetrical Normal gait and station No calf tenderness Psychiatric:Alert and oriented to person, place and time Appropriate affect Intact judgement Neuro: Muscles Strength 5/5 in all 4 extremities Sensation to light touch grossly present throughout Cranial nerves II-XII grossly intact No focal sensory deficits Recurrent syncopal episodes rule out underlying cardiac causes Status post pacemaker Cardiac monitoring Surrogate pacemaker Trend troponins Fall precautions PT eval Cardiology consult Supportive care Continue with Eliquis for now Hyperkalemia restart spironolactone cautiously at the lower level Chronic conditions Diabetes mellitus insulin sliding scale Hypertension resume cardiac meds hold spironolactone DVT prophylaxis on Eliquis Full code Anticipated length of stay more than 2 midnights Patient feels okay still weak Pneumonia start the patient on IV antibiotics Suspected mal function of the ICD management as per cardiology Objective - Vital Signs Vital signs: Vital Signs Temp 98.0 F 04/15/21 08:00 Pulse 72 04/15/21 09:23 Resp 16 04/15/21 08:00 BP 167/74 04/15/21 08:00 Pulse Ox 94 L 04/15/21 08:00 Intake & Output 04/14/21 04/15/21 04/15/21 18:59 06:59 18:59 Intake Total 296 Balance 296 Intake: Oral 296 Other: Voiding Method Bedside Commode Bedside Commode Bedside Commode # Voids 3 4 - Labs CBC & Chem 7: 04/15/21 03:30 04/15/21 03:30 Labs: Abnormal Lab Results - Last 24 Hours (Table) 04/14/21 04/14/21 04/15/21 Range/Units 16:22 22:01 03:30 RBC 3.74 L (4.10-5.20) X 10*6/uL Hgb 11.7 L (12.0-15.0) g/dL MCV 101.3 H (80.0-97.0) fL MCHC 30.9 L (32.0-37.0) g/dL RDW 15.0 H (11.5-14.5) % Immature Gran # 0.06 H (0.00-0.04) X 10*3/uL Carbon Dioxide (20.0-27.5) mmol/L POC Glucose (mg/dL) 109 H 168 H (75-99) mg/dL Calcium (8.7-10.3) mg/dL Total Bilirubin (0.30-1.20) mg/dL AST (13-35) U/L Alkaline Phosphatase (41-126) U/L Albumin (3.8-4.9) g/dL Albumin/Globulin Ratio (1.60-3.17) g/dL 04/15/21 04/15/21 04/15/21 Range/Units 03:30 06:43 11:19 RBC (4.10-5.20) X 10*6/uL Hgb (12.0-15.0) g/dL MCV (80.0-97.0) fL MCHC (32.0-37.0) g/dL RDW (11.5-14.5) % Immature Gran # (0.00-0.04) X 10*3/uL Carbon Dioxide 18.3 L (20.0-27.5) mmol/L POC Glucose (mg/dL) 114 H 108 H (75-99) mg/dL Calcium 8.2 L (8.7-10.3) mg/dL Total Bilirubin 0.20 L (0.30-1.20) mg/dL AST 12 L (13-35) U/L Alkaline Phosphatase 36 L (41-126) U/L Albumin 3.6 L (3.8-4.9) g/dL Albumin/Globulin Ratio 1.33 L (1.60-3.17) g/dL
--- NOTE | 2021-04-15 12:38 | P.CRDCN ---
History of Present Illness Consult date: 04/15/21 Consult reason: sycope History of present illness: HISTORY OF PRESENTING ILLNESS This is a pleasant 70-year-old female past medical history significant for mild nonobstructive coronary artery disease, small cell lung cancer with previous chemo radiation treatment completed 1 year ago, paroxysmal atrial fibrillation, nonischemic cardiomyopathy s/p BiV AICD in 2013, hypertension, dyslipidemia, former nicotine dependence. She follows in the office with Dr. You. We have been asked to see in consultation due to syncope. Patient is known to have a [employer] device/ICD that was placed by Dr. 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 At that time laser lead extraction and implantation of new RV lead was not recommended. Patient presented to the hosp ital due to syncopal episodes and on monitoring and appears failure of the pacemaker. [employer] will be here today and will ask for device to be checked. EKG is ventricular pacemaker rhythm Laboratory studies WBC 6.3, hemoglobin 11.7, platelet count 236. Creatinine 0.9. CTA of the chest revealed no evidence of pulmonary embolism. Right paratracheal masslike consolidation with pretracheal partly calcified mass that appears not significantly different. Small right pleural effusion. Ultrasound of the bilateral lower extremities were limited due to body habitus but no DVT. Echocardiogram 10/05/2020 revealed an EF of 45%, grade 1 diastolic dysfunction, moderate left ventricular hypertrophy, apical hypokinesis, mild to moderate aortic regurgitation, mild mitral regurgitation Cardiac catheterization 2013 with mild coronary artery disease Current home cardiac medications include Eliquis 5 mg twice a day, aspirin 81 mg daily, Lasix 20 mg daily as needed, Toprol-XL 50 mg twice daily, Aldactone 25 mg daily. REVIEW OF SYSTEMS At the time of my exam: CONSTITUTIONAL: Denies fever or chills. CARDIOVASCULAR: +mild chronicshortness of breath Denies chest pain, orthopnea, PND or palpitations. Reports episodes of lightheadedness. RESPIRATORY: Denies cough. GASTROINTESTINAL: Denies abdominal pain, diarrhea, constipation, nausea or vomiting. MUSCULOSKELETAL: Denies myalgias. NEUROLOGIC: Denies numbness, tingling, headacbe or weakness. ENDOCRINE: Denies fatigue, weight change, polydipsia or polyurina. GENITOURINARY: Denies burning, hematuria or urgency with micturation. HEMATOLOGIC: Denies history of anemia or bleeding. PHYSICAL EXAMINATION CONSTITUTIONAL:Morbidly obese 70-year-old female in no apparent distress. HEENT: Head is normocephalic. Pupils are equal, round. Sclerae anicteric. Mucous membranes of the mouth are moist. No JVD. No carotid bruit. CHEST EXAMINATION: Lungs are diminished bilateral bases to auscultation. No chest wall tenderness is noted on palpation or with deep breathing. HEART EXAMINATION: Regular rate and rhythm. S1, S2 heard. systolic murmur at ba se. ABDOMEN: Soft, nontender. Positive bowel sounds. EXTREMITIES: 2+ peripheral pulses, no lower extremity edema and no calf tenderness. NEUROLOGIC EXAMINATION: Patient is awake, alert and oriented x3. ASSESSMENT Syncopal episode most likely secondary to failure of pacemaker Mild nonobstructive coronary artery disease COPD Small cell lung cancer with previous chemo radiation treatment completed 1 year ago Paroxysmal atrial fibrillation on Eliquis Nonischemic cardiomyopathy s/p BiV AICD in 2013 Hypertension Dyslipidemia Former nicotine dependence PLAN [employer] to check ICD today Continue cardiac monitoring, patient may require EP study for further evaluation of pacemaker Continue home cardiac medications No need for repeat echocardiogram with recent one done in the office as noted above in September 2020. Further recommendations based upon patient's clinical course Thank you for this consultation. Nurse Practitioner note has been reviewed, I agree with a documented findings and plan of care. Patient was seen and examined. 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 Completed chemo and radiation. 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 History of Any Multi-Drug Resistant Organisms: None Reported Past Surgical History: Pacemaker Additional Past Surgical History / Comment(s): 2013 BiV AICD/generator change 2013 cardiac cath Past Anesthesia/Blood Transfusion Reactions: No Reported Reaction Additional Past Anesthesia/Blood Transfusion Reaction / Comment(s): Pt hsa never had general or spinal anesthesia. Type of Cardiac Device: Biventricular Pacemaker, AICD Device Placement Date:: 2013 Past Psychological History: No Psychological Hx Reported Smoking Status: Former smoker Past Alcohol Use History: None Reported Past Drug Use History: None Reported - Past Family History Brother(s) Family Medical History: Cancer Additional Family Medical History / Comment(s): pancreatic cancer Father Family Medical History: CVA/TIA, Hypertension Additional Family Medical History / Comment(s): third degree block, stroke Mother Family Medical History: Hypertension Medications and Allergies Home Medications Medication Instructions Recorded Confirmed Type Spironolactone [Aldactone] 25 mg PO DAILY #30 tab 01/12/20 04/14/21 Rx Apixaban [Eliquis] 5 mg PO BID 11/21/20 04/14/21 History Glycopyrrolate/Formoterol Fum 2 puff INHALATION RT-BID 11/21/20 04/14/21 History [Bevespi Aerosphere Inhaler] Ipratropium-Albuterol Nebulize 3 ml INHALATION RT-QID PRN 11/21/20 04/14/21 History [Duoneb 0.5 mg-3 mg/3 ml Soln] Famotidine 40 mg PO AC-SUPPER 11/30/20 04/14/21 History ALPRAZolam [Xanax] 0.25 mg PO HS PRN 01/19/21 04/14/21 History Acetaminophen [Tylenol] 650 mg PO Q6H PRN 04/14/21 04/14/21 History Aspirin EC [Ecotrin Low Dose] 81 mg PO DAILY 04/14/21 04/14/21 History Cholecalciferol [Vitamin D3 (25 50 mcg PO DAILY 04/14/21 04/14/21 History Mcg = 1000 Iu)] Furosemide [Lasix] 20 mg PO DAILY PRN 04/14/21 04/14/21 History Magnesium Chloride [Mag64] 64 mg PO DAILY 04/14/21 04/14/21 History Metoprolol Succinate (ER) [Toprol 50 mg PO BID 04/14/21 04/14/21 History Xl] Allergies Allergy/AdvReac Type Severity Reaction Status Date / Time losartan [Losartan] Allergy Severe Rash/Hives Verified 04/14/21 09:32 Penicillins Allergy Severe Rash/Hives Verified 04/14/21 09:32 cortisone [Cortisone] AdvReac Severe flushed Verified 04/14/21 09:32 skin, depression Tetanus Vaccines and Toxoid AdvReac Severe huge Verified 04/14/21 09:32 [Tetanus Vaccines & Toxoid] localized swelling Physical Exam Vitals: Vital Signs Temp Pulse Pulse Resp BP Pulse Ox 04/15/21 09:23 72 04/15/21 09:13 72 04/15/21 09:12 72 04/15/21 09:02 68 04/15/21 08:00 98.0 F 70 16 167/74 94 L 04/15/21 07:10 70 16 04/15/21 02:00 98.2 F 75 20 184/77 99 04/15/21 01:09 97.5 F L 80 20 160/74 99 04/15/21 00:47 152/74 04/15/21 00:39 85 04/15/21 00:33 82 04/15/21 00:10 200/92 04/15/21 00:04 168/89 04/14/21 20:46 76 04/14/21 20:41 72 04/14/21 20:40 72 04/14/21 20:32 72 04/14/21 20:00 75 20 04/14/21 19:49 97.7 F 94 18 136/79 97 04/14/21 16:55 76 04/14/21 16:43 76 04/14/21 15:08 98.9 F 80 16 124/65 96 Intake and Output 04/14/21 04/15/21 04/15/21 22:59 06:59 14:59 Intake Total 296 Balance 296 Intake: Oral 296 Other: Voiding Method Bedside Commode Bedside Commode # Voids 4 4 Results 04/15/21 03:30 04/15/21 03:30 Cardiac Enzymes 04/15/21 04/15/21 Range/Units 00:24 03:30 AST 12 L (13-35) U/L Troponin I <0.012 (0.000-0.034) ng/mL CBC 04/15/21 Range/Units 03:30 WBC 6.34 (4.50-10.00) X 10*3/uL RBC 3.74 L (4.10-5.20) X 10*6/uL Hgb 11.7 L (12.0-15.0) g/dL Hct 37.9 (37.2-46.3) % Plt Count 236 (140-440) X 10*3/uL Comprehensive Metabolic Panel 04/15/21 Range/Units 03:30 Sodium 137 (135-145) mmol/L Potassium 4.3 (3.5-5.5) mmol/L Chloride 107 (96-109) mmol/L Carbon Dioxide 18.3 L (20.0-27.5) mmol/L BUN 14.5 (9.0-27.0) mg/dL Creatinine 0.9 (0.6-1.5) mg/dL Glucose 104 (70-110) mg/dL Calcium 8.2 L (8.7-10.3) mg/dL AST 12 L (13-35) U/L ALT 11 (8-44) U/L Alkaline Phosphatase 36 L (41-126) U/L Total Protein 6.3 (6.2-8.2) g/dL Albumin 3.6 L (3.8-4.9) g/dL Current Medications Generic Name Dose Route Start Last Admin Trade Name Freq PRN Reason Stop Dose Admin Hydrocodone Bitart/Acetaminophen 1 each 04/14/21 10:43 04/15/21 08:48 Hydrocodone/Apap 5-325mg 1 Each Tab PO 1 each Q4HR PRN Administration Pain Albuterol/Ipratropium 3 ml 04/14/21 05:49 04/15/21 09:02 Ipratropium-Albuterol 3 Ml Neb INHALATION 3 ml RT-QID PRN Administration Shortness Of Breath Or Wheezing Apixaban 5 mg 04/14/21 09:00 04/15/21 08:48 Apixaban 5 Mg Tab PO 5 mg BID DEJA Administration Protocol Aspirin 81 mg 04/15/21 09:00 04/15/21 08:48 Aspirin 81 Mg PO 81 mg DAILY DEJA Administration Clonidine 0.2 mg 04/15/21 02:10 04/15/21 02:48 Clonidine Hcl 0.2 Mg Tab PO 0.2 mg QID PRN Administration Blood Pressure - High Famotidine 40 mg 04/14/21 17:30 04/14/21 17:10 Famotidine 20 Mg Tab PO 40 mg W/SUPPER DEJA Administration Formoterol Fumarate 20 mcg 04/14/21 08:00 04/15/21 09:02 Formoterol Fumarate 20 Mcg/2 Ml Nebu INHALATION 20 mcg RT-BID DEJA Administration Furosemide 20 mg 04/14/21 13:24 Furosemide 20 Mg Tab PO DAILY PRN swelling Levofloxacin 500 mg/ IV 100 mls @ 100 mls/hr 04/14/21 14:00 04/14/21 17:06 Solution IVPB 100 mls/hr Q24H DEJA Administration Insulin Aspart 0 unit 04/14/21 07:30 04/15/21 08:49 Insulin Aspart (Novolog) 100 Unit/Ml Vial SQ Not Given ACHS [facility] Protocol Lorazepam 0.5 mg 04/14/21 04:57 Lorazepam 2 Mg/Ml Inj IV Q6HR PRN Anxiety Metoprolol Succinate 50 mg 04/14/21 21:00 04/15/21 08:48 Metoprolol Succinate (Er) 50 Mg Tab.Er.24h PO 50 mg BID DEJA Administration Morphine Sulfate 4 mg 04/14/21 04:57 04/15/21 00:16 Morphine Sulfate 4 Mg/Ml Syringe IV 4 mg Q4HR PRN Administration Severe Pain Naloxone HCl 0.2 mg 04/14/21 04:57 Naloxone 0.4 Mg/Ml 1 Ml Vial IV Q2M PRN Opioid Reversal Nitroglycerin 0.4 mg 04/15/21 00:16 04/15/21 00:25 Nitroglycerin Sl Tabs 0.4 Mg Tab SUBLINGUAL 0.4 mg ONCE PRN Administration Chest Pain Ondansetron HCl 4 mg 04/14/21 04:57 Ondansetron 4 Mg/2 Ml Vial IVP Q8HR PRN Nausea And Vomiting Pantoprazole Sodium 40 mg 04/14/21 09:00 04/15/21 08:48 Pantoprazole 40 Mg/10 Ml Vial IV 40 mg DAILY DEJA Administration Spironolactone 25 mg 04/15/21 09:00 04/15/21 08:48 Spironolactone 25 Mg Tab PO 25 mg DAILY DEJA Administration Intake and Output 04/14/21 04/15/21 04/15/21 22:59 06:59 14:59 Intake Total 296 Balance 296 Intake: Oral 296 Other: Voiding Method Bedside Commode Bedside Commode # Voids 4 4 04/15/21 03:30 04/15/21 03:30
[2021-04-15 16:54] LABS: Glucose,Whole Blood 96 mg/dL (75-99)
[2021-04-15] MEDS: FAMOTIDINE 20 MG TAB PO SCH (17:00)
[2021-04-15] MEDS: LEVOFLOXACIN 500MG-D5W PMX 500 MG in DEXTROSE/WATER 1 100ML.BAG IVPB SCH (17:13)
[2021-04-15 20:37] LABS: Glucose,Whole Blood 112 mg/dL (75-99)
[2021-04-16] MEDS: IPRATROPIUM-ALBUTEROL 3 ML NEB INHALATION PRN ×5 (02:14→19:38)
[2021-04-16 06:25] LABS: Glucose,Whole Blood 99 mg/dL (75-99)
[2021-04-16] MEDS: INSULIN ASPART (NovoLOG) 100 UNIT/ML VIAL SQ SCH ×4 (06:31→20:59)
[2021-04-16] MEDS: PANTOPRAZOLE 40 MG TABLET PO SCH (06:40)
[2021-04-16] MEDS: FORMOTEROL FUMARATE 20 MCG/2 ML NEBU INHALATION SCH ×2 (07:47→19:38)
[2021-04-16 08:05] LABS: Basophils % (A) 0 %; Eosinophils # (A) 0.1 k/uL (0-0.7); Eosinophils % (A) 1 %; HCT 41.5 % (34.0-46.0); HGB 12.9 gm/dL (11.4-16.0); Lymphocytes % (A) 13 %; MCH 31.9 pg (25.0-35.0); MCHC 31.1 g/dL (31.0-37.0); MCV 102.7 fL (80.0-100.0); Macrocytosis Slight; Mean Platelet Volume 7.4; Monocytes # (A) 0.5 k/uL (0-1.0); Monocytes % (A) 6 %; Neutrophils # (A) 6.1 k/uL (1.3-7.7); Neutrophils % (A) 78 %; Platelet Count 285 k/uL (150-450); RBC 4.04 m/uL (3.80-5.40); RDW 15.2 % (11.5-15.5); WBC 7.8 k/uL (3.8-10.6)
[2021-04-16 08:20] LABS: Albumin 3.8 g/dL (3.5-5.0); Calcium 8.9 mg/dL (8.4-10.2); Potassium 4.5 mmol/L (3.5-5.1); Total Bilirubin 0.5 mg/dL (0.2-1.3); Total Protein 7.5 g/dL (6.3-8.2)
[2021-04-16] MEDS: METOPROLOL SUCCINATE (ER) 50 MG TAB.ER.24H PO SCH ×2 (10:10→20:25)
[2021-04-16] MEDS: APIXABAN 5 MG TAB PO SCH ×2 (10:10→20:25)
[2021-04-16] MEDS: SPIRONOLACTONE 25 MG TAB PO SCH (10:10)
[2021-04-16] MEDS: ASPIRIN 81 MG PO SCH (10:10)
[2021-04-16 12:02] LABS: Glucose,Whole Blood 94 mg/dL (75-99)
--- NOTE | 2021-04-16 13:20 | CDI ---
Chronic combined CHF, systolic and diastolic Documentation Clarification Form Date: 04/16/2021 01:07:57 PM From: Alexia Hdz, SAPNA, CCDS Admit Date: 04/14/2021 03:10:00 PM Patient Name: Radha Marin Visit Number: [id number] Discharge Date: ATTENTION: The Clinical Documentation Specialists (CDI) and [facility] Coding Staff appreciate your assistance in clarifying documentation. Please respond to the clarification below the line at the bottom and electronically sign. The CDI & [facility] Coding staff will review the response and follow-up if needed. Please note: Queries are made part of the Legal Health Record. If you have any questions, please contact the author of this message via ITS. Dr. Darryl Nagy: Chronic CHF without further specificity is documented in the 04/15 Cardiology Consult. Additional information regarding the Type of CHF is requested. History/Risk Factors per the 04/14 H/P: Lung Cancer status post chemotherapy & radiation, Heart Failure, Hypertension, Nonischemic Cardiomyopathy with AICD, Bronchitis, Osteoarthritis in fingers, bilateral knees, toes & lumbar spine, Heart Cath with stent and Former smoker. Clinical Indicators: Presented to the ED on 04/14 via EMS after falling out of a recliner & hitting her head at home with no LOC. Has a laceration above her right eyelid, wearing glasses, mild brow injury nose & nasal bridge injury. Admit with Syncope, Fall, Recurrent Syncope, Right Eyelid Laceration 04/14 VS: T 98.2, P 77, R 18, BP 196/97, PO 99 2Lnc 04/14 LAB: D Dimer 1.17, K 6.0, CO2 21, BUN 21, Glucose 117, AST 43, Alk Phos 27. 04/14: BNP: 207 04/14 CT Chest: No PE, Right paratracheal masslike consolidation with pretracheal partly calcified mass that appears not significantly different, Small right pleural effusion. Most Recent ECHO (01/10/2020): Left ventricular is normal. Mild LVH, Left ventricular systolic function is mild-moderately impaired with EF 40-45%, Mild TR. Treatment 04/14: Fall precautions, Blood cultures, O2 2Lnc, IV Na Cl 999 mls/hr q1H, IV Morphine 4 mg q4H/prn, INH Duoneb QID, INH Perforomist BID, po Eliquis 5 mg BID, po Lasix 20 mg Daily. In your professional opinion, can you please clarify the Type of CHF if known? [ ] Chronic Systolic Heart Failure [ ] Chronic Diastolic Heart Failure [ ] Chronic Systolic & Diastolic Heart Failure [ ] CHF is ruled out [ ] Other, please specify [ ] Unable to determine (Template Last Revised: March 2020) MTDD
--- NOTE | 2021-04-16 13:30 | P.PN ---
Subjective Progress Note Date: 04/16/21 Principal diagnosis: Patient feels better today shortness of breath improved this week Constitutional: No acute distress, conversant, pleasant Eyes: Anicteric sclerae, moist conjunctiva, no lid-lag PERRLA ENMT: NC/AT Oropharynx clear, no erythema, exudates Neck: Supple, FROM, no masses, or JVD No carotid bruits No thyromegaly Lungs: Clear to auscultation Clear to percussion Normal respiratory effort, no accessory muscle use Cardiovascular: Heart regular in rate and rhythm, No murmurs, gallops, or rubs No peripheral edema Abdominal: Soft Nontender, no guarding, rebound or rigidity Abdomen moving with respiration Normoactive bowel sounds No hepatomegaly, No splenomegaly No palpable mass No abdominal wall hernia noted Skin: Normal temperature, tone, texture, turgor No induration No subcutaneous nodules No rash, lesions No ulcers Extremities: No digital cyanosis No clubbing Pedal pulses intact and symmetrical Radial pulses intact and symmetrical Normal gait and station No calf tenderness Psychiatric:Alert and oriented to person, place and time Appropriate affect In tact judgement Neuro: Muscles Strength 5/5 in all 4 extremities Sensation to light touch grossly present throughout Cranial nerves II-XII grossly intact No focal sensory deficits Recurrent syncopal episodes rule out underlying cardiac causes Status post pacemaker Cardiac monitoring Surrogate pacemaker Trend troponins Fall precautions PT eval Cardiology consult Supportive care Continue with Eliquis for now Hyperkalemia restart spironolactone cautiously at the lower level Chronic conditions Diabetes mellitus insulin sliding scale Hypertension resume cardiac meds hold spironolactone DVT prophylaxis on Eliquis Full code Anticipated length of stay more than 2 midnights Patient feels okay still weak Pneumonia continue on IV antibiotics for another day or 2 Suspected mal function of the ICD management as per cardiology P Objective - Vital Signs Vital signs: Vital Signs Temp 97.7 F 04/16/21 11:50 Pulse 85 04/16/21 11:51 Resp 16 04/16/21 11:50 BP 167/77 04/16/21 11:50 Pulse Ox 100 04/16/21 11:50 Intake & Output 04/15/21 04/16/21 04/16/21 18:59 06:59 18:59 Intake Total 240 480 Output Total 150 Balance 240 -150 480 Intake: Oral 240 480 Output: Urine 150 Other: Voiding Method Bedside Commode Bedside Commode Bedside Commode # Voids 1 1 1 - Labs CBC & Chem 7: 04/16/21 06:56 04/16/21 06:56 Labs: Abnormal Lab Results - Last 24 Hours (Table) 04/15/21 04/16/21 04/16/21 Range/Units 20:36 06:56 06:56 MCV 102.7 H (80.0-100.0) fL Carbon Dioxide 21 L (22-30) mmol/L POC Glucose (mg/dL) 112 H (75-99) mg/dL Microbiology - Last 24 Hours (Table) 04/14/21 14:42 Blood Culture - Preliminary Blood No Growth after 24 hours
--- NOTE | 2021-04-16 14:55 | PN ---
PROGRESS NOTE Mrs. Marin came in with an episode of syncope, was seen by Dr. Nagy, evaluated by him, and subsequently device also was interrogated. She has a biventricular ICD and Dr. You also had some input regarding the programming. At this time it appears that patient is in a DOO mode programmed. I will await further input from Dr. You regarding further management plans. Patient did have a syncopal episode and apparently there was an issue of non-sensing. She is resting comfortably at the time of my evaluation. Her vitals are stable. She has not had any further bradycardia this morning. Heart rate is about 68 beats per minute. Blood pressure 130/80. S1, S2 heard normally. Heart sounds heard distantly. Short systolic murmur noted. Lungs reveal diminished air entry. Abdomen is soft, non-tender. Lower extremities reveal diminished pulses. There is evidence of a facial injury noted. EKG revealed atrial sensed and ventricular paced beats. I will await further input from Dr. You and have him see the patient before any final decision can be made with regard to further management plans. Prognosis remains guarded. MMODL / IJN: [id number] /
[2021-04-16 16:47] LABS: Glucose,Whole Blood 125 mg/dL (75-99)
[2021-04-16] MEDS: LEVOFLOXACIN 500 MG TAB PO SCH (17:08)
[2021-04-16] MEDS: FAMOTIDINE 20 MG TAB PO SCH (17:08)
[2021-04-16] MEDS: HYDROcodone/APAP 5-325MG 1 EACH TAB PO PRN ×2 (19:16→23:19)
[2021-04-16 20:41] LABS: Glucose,Whole Blood 116 mg/dL (75-99)
[2021-04-17] MEDS: HYDROcodone/APAP 5-325MG 1 EACH TAB PO PRN ×6 (03:02→21:12)
[2021-04-17] MEDS: PANTOPRAZOLE 40 MG TABLET PO SCH (06:03)
[2021-04-17 06:23] LABS: Glucose,Whole Blood 104 mg/dL (75-99)
[2021-04-17] MEDS: INSULIN ASPART (NovoLOG) 100 UNIT/ML VIAL SQ SCH ×4 (06:30→20:31)
[2021-04-17] MEDS: IPRATROPIUM-ALBUTEROL 3 ML NEB INHALATION PRN (07:55)
[2021-04-17] MEDS: FORMOTEROL FUMARATE 20 MCG/2 ML NEBU INHALATION SCH ×2 (07:55→19:50)
[2021-04-17] MEDS: METOPROLOL SUCCINATE (ER) 50 MG TAB.ER.24H PO SCH (09:11)
[2021-04-17] MEDS: APIXABAN 5 MG TAB PO SCH ×3 (09:11→21:12)
[2021-04-17] MEDS: ASPIRIN 81 MG PO SCH (09:11)
[2021-04-17] MEDS: SPIRONOLACTONE 25 MG TAB PO SCH (09:11)
[2021-04-17 09:36] LABS: Basophils % (A) 1 %; Eosinophils # (A) 0.1 k/uL (0-0.7); Eosinophils % (A) 1 %; HCT 40.6 % (34.0-46.0); Lymphocytes % (A) 16 %; MCH 32.7 pg (25.0-35.0); MCV 102.2 fL (80.0-100.0); Macrocytosis Slight; Mean Platelet Volume 7.7; Monocytes # (A) 0.4 k/uL (0-1.0); Monocytes % (A) 7 %; Neutrophils # (A) 4.5 k/uL (1.3-7.7); Neutrophils % (A) 73 %; Platelet Count 264 k/uL (150-450); RBC 3.98 m/uL (3.80-5.40); RDW 14.6 % (11.5-15.5); WBC 6.2 k/uL (3.8-10.6)
[2021-04-17 10:20] LABS: Albumin 3.9 g/dL (3.5-5.0); Calcium 9.1 mg/dL (8.4-10.2); Potassium 4.7 mmol/L (3.5-5.1); Total Bilirubin 0.7 mg/dL (0.2-1.3); Total Protein 7.7 g/dL (6.3-8.2)
--- NOTE | 2021-04-17 10:54 | PN ---
PROGRESS NOTE Mrs. Marin is comfortable resting. She was seen by Dr. You yesterday. He is going to reinterrogate the device today with the rep and most likely will keep her in atrial and left ventricular paced system and probably make the right ventricular lead which may have a fracture as nonfunctional. Patient is comfortable. No further arrhythmia. Resting comfortably. Vitals are stable. No JVD. S1, S2 heard normally. Distant heart sounds. Clear lungs. Abdomen is soft, nontender. Lower extremities reveal bilateral trace edema, diminished pulses. Prognosis remains guarded. She can be discharged once cleared by Dr. You. MMODL / IJN: [id number] /
[2021-04-17 11:39] LABS: Glucose,Whole Blood 161 mg/dL (75-99)
--- NOTE | 2021-04-17 14:34 | P.PN ---
Subjective Progress Note Date: 04/17/21 Principal diagnosis: CC: syncope Patient this morning denies any acute complaints. Patient stated that she had a cough with sputum when she came in. She states that this is improving. Patient denies any further syncopal episodes since admission. I discussed the case with cardiology. Objective - Vital Signs Vital signs: Vital Signs Temp 97.7 F 04/17/21 08:00 Pulse 63 04/17/21 14:16 Resp 18 04/17/21 14:16 BP 146/72 04/17/21 11:58 Pulse Ox 96 04/17/21 11:58 Intake & Output 04/16/21 04/17/21 04/17/21 18:59 06:59 18:59 Intake Total 840 240 Balance 840 240 Intake: Oral 840 240 Other: Voiding Method Bedside Commode Bedside Commode Bedside Commode # Voids 1 1 - Exam General examination - Alert and Oriented 3 in NAD, patient appears chronically debilitated Heart - + S1S2 no murmurs Lungs - Clear to auscultation Abdomen soft NT ND +ve BS Extremities - No edema, obese [employer]ARDING [employer]SE [employer]GER - Moving all 4 extremities spontaneously Psych - Calm and cooperative - Labs CBC & Chem 7: 04/17/21 08:36 04/17/21 08:36 Labs: Abnormal Lab Results - Last 24 Hours (Table) 04/16/21 04/16/21 04/17/21 Range/Units 16:40 20:39 06:22 MCV (80.0-100.0) fL Sodium (137-145) mmol/L Carbon Dioxide (22-30) mmol/L BUN (7-17) mg/dL POC Glucose (mg/dL) 125 H 116 H 104 H (75-99) mg/dL 04/17/21 04/17/21 04/17/21 Range/Units 08:36 08:36 11:37 MCV 102.2 H (80.0-100.0) fL Sodium 136 L (137-145) mmol/L Carbon Dioxide 21 L (22-30) mmol/L BUN 18 H (7-17) mg/dL POC Glucose (mg/dL) 161 H (75-99) mg/dL Microbiology - Last 24 Hours (Table) 04/14/21 14:42 Blood Culture - Preliminary Blood No Growth after 48 hours Assessment and Plan Assessment: Syncope episode most likely due to failure pacemaker -I discussed with cardiology. Per cardiology patient will need replacement of the AICD. Cardiology was set up patient for an appointment with [facility]. -Awaiting for LifeVest Possible pneumonia -Resume current antibiotics -Computed tomography scan shows stable right upper lobe consolidation which is where her previous lung cancer was and where she received radiation -Patient reports improvement in her cough since she started on antibiotics. Will complete a 5 day course as he cannot rule out underlying pneumonia. -I discussed with patient and daughter at bedside that patient will need a repeat computed tomography scan in 6 weeks Coronary artery disease -Continue current cardiac meds COPD -Resume inhalers History of small cell lung cancer status post chemotherapy and radiation completed 1 year ago -Patient reports that she is now in remission Nonischemic cardiomyopathy status post by the AICD -Patient is euvolemic -Resume current cardiac meds Paroxysmal atrial fibrillation on our requests -Resume Eliquis and beta canelo Chronic conditions Hypertension Dyslipidemia Former nicotine dependence -Stable and resume home meds CODE STATUS:full code DVT prophylaxis: Eliquis Anticipated length of stay : Patient medically stable for discharge. Awaiting for LifeVest Anticipated discharge place: Home with home care
[2021-04-17 16:33] LABS: Glucose,Whole Blood 100 mg/dL (75-99)
[2021-04-17] MEDS: FAMOTIDINE 20 MG TAB PO SCH (17:02)
[2021-04-17] MEDS: LEVOFLOXACIN 500 MG TAB PO SCH (17:02)
[2021-04-17] MEDS ORDERED: carvediloL 6.25 MG TAB PO SCH (19:00)
--- NOTE | 2021-04-17 19:38 | P.EPPROC ---
- EP Procedure Note Electrophysiology Procedure Note: Dr. You dictating the electrophysiology assessment on Radha Marin 70-year-old female presenting with loss of consciousness Documented intermittent loss of LV capture on telemetry Patient has underlying complete heart block She has a Metronic biventricular ICD was implanted in 2013 At that time she has severe congestive heart failure with severe nonischemic cardio myopathy, nonobstructive CAD and left bundle branch block Following that there was a significant improvement in LV systolic function over the years Left ventricular ejection fraction greater than 45% without any CHF exacerbations In she developed small cell lung cancer and received radiation therapy and chemotherapy No recurrence thereafter and has been doing well Rising RV thresholds and impedances noted last year with increasing RV impedance In October of last year the RV impedance was 1834 ohms and the thresholds were 4.5 V at 0.5 ms DFT 10 J, successful Shocking impedance 74 ohms LV pacing 988 ohms, threshold 1V @ 1 ms, LV tip to RVcoil Atrial lead functioning normally RV pacing was turned off completely and she was LV only pacing Now presenting with syncopal spells Intermittent loss of LV capture noted on telemetry The LV pacing configuration was changed to bipolar mode, with impedance of 893 ohms but with a higher threshold of 2 V at 1 ms DOO 70 beats a minute programmed at this time, but given the change in the pacing configuration to true LV bipolar pacing, I will switch back to DDDR Current issues History of nonischemic cardio myopathy with severe LV dysfunction and severe heart failure with a left bundle branch block pattern with significant improvement with Bi V pacing Significant improvement in LV systolic function to greater than 45% over the years ICD lead impedance greater than 3000 with thresholds greater than 4.5 V at 0.5 ms Likely noise picked up by the LV pacing configuration with intermittent loss of capture Bipolar LV configuration has a pacing threshold 2 V at 1 ms Patient desires defibrillator therapy. Options include #1. Laser lead extraction of the ICD and LV leads and reimplantation of new leads via of the occluded left subclavian vein #2 implantation of an ICD lead from the right side, tunneling across the chest wall to the left pocket, if there is no SVC occlusion. This will provide a reliable pacing backup to LV pacing At this time I would recommend a LifeVest and consideration of both the above options. LifeVest until a final decision is made I will speak to Dr. Pugh her oncologist
[2021-04-17 20:11] LABS: Glucose,Whole Blood 103 mg/dL (75-99)
[2021-04-17] MEDS: METOPROLOL SUCCINATE (ER) 25 MG TAB.ER.24H PO SCH ×2 (20:52→21:12)
[2021-04-18] MEDS: HYDROcodone/APAP 5-325MG 1 EACH TAB PO PRN ×3 (01:52→14:30)
[2021-04-18 06:14] LABS: Glucose,Whole Blood 97 mg/dL (75-99)
[2021-04-18] MEDS: INSULIN ASPART (NovoLOG) 100 UNIT/ML VIAL SQ SCH ×2 (06:14→12:42)
[2021-04-18] MEDS: PANTOPRAZOLE 40 MG TABLET PO SCH (06:22)
[2021-04-18 07:50] VITALS: TEMP 97.5
[2021-04-18] MEDS: APIXABAN 5 MG TAB PO SCH (07:52)
[2021-04-18] MEDS: ASPIRIN 81 MG PO SCH (07:52)
[2021-04-18] MEDS: SPIRONOLACTONE 25 MG TAB PO SCH (07:52)
[2021-04-18] MEDS: METOPROLOL SUCCINATE (ER) 25 MG TAB.ER.24H PO SCH (07:53)
[2021-04-18] MEDS: IPRATROPIUM-ALBUTEROL 3 ML NEB INHALATION PRN (09:29)
[2021-04-18] MEDS: FORMOTEROL FUMARATE 20 MCG/2 ML NEBU INHALATION SCH (09:29)
--- NOTE | 2021-04-18 11:00 | ECHOF ---
Referral Reason:lv function assessment MEASUREMENTS -------- HEIGHT: 170.2 cm WEIGHT: 120.7 kg BP: 153/69 RVIDd: 3.0 cm (< 3.3) IVSd: 1.4 cm (0.6 - 1.1) LVIDd: 4.0 cm (3.9 - 5.3) LVPWd: 1.3 cm (0.6 - 1.1) IVSs: 1.8 cm LVIDs: 2.6 cm LVPWs: 2.0 cm LA Diam: 3.2 cm (2.7 - 3.8) LAESV Index (A-L): 18.50 ml/m Ao Diam: 3.2 cm (2.0 - 3.7) AV Cusp: 2.5 cm (1.5 - 2.6) MV EXCURSION: 5.466 mm (> 18.000) MV EF SLOPE: 31 mm/s (70 - 150) EPSS: 2.1 cm MV E Star: 1.17 m/s MV DecT: 272 ms MV A Star: 1.39 m/s MV E/A Ratio: 0.84 RAP: 15.00 mmHg RVSP: 41.03 mmHg FINDINGS -------- Pacerwire seen in RV and RA. This was a technically difficult study with suboptimal views. The left ventricular size is normal. There is moderate concentric left ventricular hypertrophy. O verall left ventricular systolic function is normal with, an EF between 55 - 60 %. The right ventricle is normal in size. Normal LA size by volume 22+/-6 ml/m2. The right atrium is normal in size. 3 ml of Lumason was utilized for enhancement of images. Interatrial and interventricular septum intact. The aortic valve was not well visualized. Moderate mitral annular calcification present. Mild mitral regurgitation is present. The peak an d mean MV gradients are 10.87mmHg 3.77mmHg as measured by doppler. Mild tricuspid regurgitation present. There is mild pulmonary hypertension. The right ventricular systolic pressure, as measured by Doppler, is 41.03mmHg. The pulmonic valve was not well visualized. The aortic root size is normal. Normal inferior vena cava with less than 50% inspiratory collapse consistent with estimated right atr ial pressure of 15 mmHg. There is no pericardial effusion. CONCLUSIONS -------- 1. This was a technically difficult study with suboptimal views. 2. There is moderate concentric left ventricular hypertrophy. 3. Overall left ventricular systolic function is normal with, an EF between 55 - 60 %. 4. Normal LA size by volume 22+/-6 ml/m2. 5. 3 ml of Lumason was utilized for enhancement of images. 6. Moderate mitral annular calcification present. 7. Mild mitral regurgitation is present. 8. The peak and mean MV gradients are 10.87mmHg 3.77mmHg as measured by doppler. 9. Mild tricuspid regurgitation present. 10. There is mild pulmonary hypertension. 11. Normal inferior vena cava with less than 50% inspiratory collapse consistent with estimated right atrial pressure of 15 mmHg. 12. There is no pericardial effusion. CRANE HOIST OR LIFT OPERATOR: Mariah Cronin RDCS
--- NOTE | 2021-04-18 11:20 | PN ---
PROGRESS NOTE Mrs. Marin has history of nonischemic cardiomyopathy, ICD, biventricular, with some issues with the right ventricular ICD lead. Dr. You has made several adjustments. Plan is to wait for a LifeVest for her, and she may require extraction of the ICD lead and reimplantation, which are rather arduous procedures. However, for now we await a LifeVest before discharge. She is doing well in sinus rhythm with some paced active beats. Has not had any bradyarrhythmia. Vitals are stable. No JVD. S1-S2 heard normally. Short systolic murmur noted. Lungs revealed decent air entry. Abdomen is distended, nontender. Lower extremities reveal diminished pulses, bilateral mild edema. Central nervous system is normal. Plan is to wait for a LifeVest and then only discharge the patient, and will follow with Dr. You. Prognosis remains guarded. MMODL / IJN: [id number] /
[2021-04-18 11:46] LABS: Glucose,Whole Blood 86 mg/dL (75-99)
[2021-04-18 12:08] VITALS: BP 159/69; PULSE 70; RESP 17
--- NOTE | 2021-04-18 13:36 | P.DS ---
Providers Date of admission: 04/14/21 15:10 Expected date of discharge: 04/18/21 Attending physician: Edson Saucedo MD Consults: 04/14/21 06:03 Consult Physician Routine Consulting Provider: Gibson Salgado Consult Reason/Comments: syncope Do you want consulting provider notified?: Yes 04/16/21 09:25 Consult Physician Routine Consulting Provider: Rocco You Consult Reason/Comments: pacemaker malfunction Do you want consulting provider notified?: Yes Primary care physician: Arian Forrest MD Hospital Course: Discharge Diagnosis: Syncope episode most likely due to failure of pacemaker Possible pneumonia Coronary artery disease COPD History of small cell lung cancer status post chemotherapy and radiation completed 1 year ago Nonischemic cardiomyopathy status post AICD Paroxysmal atrial fibrillation on Eliquis Hypertension Dyslipidemia Former nicotine dependence Hospital Course: Patient is a 68-year-old female with a past medical history of hypertension diabetes mellitus COPD on 2 L nasal cannula. Patient came in to the hospital with a fall secondary to syncope. In the ED patient's was found to have elevated d-dimer and so she had a CTA scan of her chest that was negative for pulmonary embolism. Patient was evaluated by cardiology who said she likely had a syncope due to malfunction of her ICD. Per safety teacher patient will need a LifeVest on discharge and he will refer her to [facility]. Patient had a LifeVest arranged for her. Patient computed tomography scan showed stable consolidation in the right upper lobe which is where patient had history of lung cancer and status post radiation. Underlying pneumonia could not be ruled out so patient was treated with antibiotics and she reported improvement in her cough with sputum. Patient will be discharged on levaquin to complete 1 more day of antibiotics. She was told to follow-up with her pin inserter for repeat imaging. I discussed this with daughter at bedside as well. Patient seen and examined at bedside.[] Vital signs reviewed and stable. General: [non toxic], [no distress], [appears at stated age], appears chronically debilitated Derm: [warm], [dry] Head: [atraumatic], [normocephalic], [symmetric] Eyes: [EOMI], [no lid lag], [anicteric sclera] Mouth: [no lip lesion], [mucus membranes moist] Cardiovascular: [S1S2 reg], [no murmur], [positive posterior tibial pulse bilateral], Lungs: [CTA bilateral], [no rhonchi, no rales] , [no accessory muscle use] Abdominal: [soft], [ nontender to palpation], [no guarding], [no appreciable organomegaly] Ext: [no gross muscle atrophy], [no edema], [no contractures] Neuro: [ CN II-XI grossly intact], [no focal neuro deficits] Psych: [Alert], [oriented], [appropriate affect] A total of [33] minutes of time were spent preparing this complex discharge summary . Patient Condition at Discharge: Good Plan - Discharge Summary Discharge Rx Participant: Yes New Discharge Prescriptions: New Levofloxacin [Levaquin] 500 mg PO Q24H 1 Days #1 tab Metoprolol Succinate (ER) [Toprol XL] 75 mg PO BID 30 Days #30 tab Continue Spironolactone [Aldactone] 25 mg PO DAILY #30 tab Ipratropium-Albuterol Nebulize [Duoneb 0.5 mg-3 mg/3 ml Soln] 3 ml INHALATION RT-QID PRN PRN Reason: Shortness Of Breath Glycopyrrolate/Formoterol Fum [Bevespi Aerosphere Inhaler] 2 puff INHALATION RT-BID Acetaminophen [Tylenol] 650 mg PO Q6H PRN PRN Reason: Fever And/ Or Pain Apixaban [Eliquis] 5 mg PO BID Famotidine 40 mg PO AC-SUPPER ALPRAZolam [Xanax] 0.25 mg PO HS PRN PRN Reason: Insomnia/Anxiety Aspirin EC [Ecotrin Low Dose] 81 mg PO DAILY Cholecalciferol [Vitamin D3 (25 Mcg = 1000 Iu)] 50 mcg PO DAILY Furosemide [Lasix] 20 mg PO DAILY PRN PRN Reason: swelling Magnesium Chloride [Mag64] 64 mg PO DAILY Discontinued Metoprolol Succinate (ER) [Toprol Xl] 50 mg PO BID Discharge Medication List Spironolactone [Aldactone] 25 mg PO DAILY #30 tab 01/12/20 [Rx] Apixaban [Eliquis] 5 mg PO BID 11/21/20 [History] Glycopyrrolate/Formoterol Fum [Bevespi Aerosphere Inhaler] 2 puff INHALATION RT- BID 11/21/20 [History] Ipratropium-Albuterol Nebulize [Duoneb 0.5 mg-3 mg/3 ml Soln] 3 ml INHALATION RT-QID PRN 11/21/20 [History] Famotidine 40 mg PO AC-SUPPER 11/30/20 [History] ALPRAZolam [Xanax] 0.25 mg PO HS PRN 01/19/21 [History] Acetaminophen [Tylenol] 650 mg PO Q6H PRN 04/14/21 [History] Aspirin EC [Ecotrin Low Dose] 81 mg PO DAILY 04/14/21 [History] Cholecalciferol [Vitamin D3 (25 Mcg = 1000 Iu)] 50 mcg PO DAILY 04/14/21 [History] Furosemide [Lasix] 20 mg PO DAILY PRN 04/14/21 [History] Magnesium Chloride [Mag64] 64 mg PO DAILY 04/14/21 [History] Levofloxacin [Levaquin] 500 mg PO Q24H 1 Days #1 tab 04/18/21 [Rx] Metoprolol Succinate (ER) [Toprol XL] 75 mg PO BID 30 Days #30 tab 04/18/21 [Rx] Follow up Appointment(s)/Referral(s): Arian Forrest MD [Primary Care Provider] - 1-2 days Darryl Nagy MD [STAFF PHYSICIAN] - 1 Week Activity/Diet/Wound Care/Special Instructions: Rx [facility] to resume at d/c [phone]. Discharge Disposition: HOME SELF-CARE
== END 2021-04-18 17:16 | disposition home or self-care (01) | DRG 308 ==
LOC: EC 02:04 → 4SSUR 04:57 → OBSVTOIN 15:10 → 3SCARD 04-15 15:57
PROVIDERS: ADMIT Internal Medicine; ATTEND Internal Medicine
PROC: 0HQ1XZZ Repair Face Skin, External Approach (ICD-10-PCS; principal; 2021-04-14)
DX: T82.110A Breakdown (mechanical) of cardiac electrode, initial encounter (principal); J18.9 Pneumonia, unspecified organism; I42.8 Other cardiomyopathies; I50.42 Chronic combined systolic (congestive) and diastolic (congestive) heart failure; C34.91 Malignant neoplasm of unspecified part of right bronchus or lung; J44.0 Chronic obstructive pulmonary disease with (acute) lower respiratory infection; I11.0 Hypertensive heart disease with heart failure; E11.9 Type 2 diabetes mellitus without complications; I48.0 Paroxysmal atrial fibrillation; Z20.822 Contact with and (suspected) exposure to COVID-19; S01.111A Laceration without foreign body of right eyelid and periocular area, initial encounter; S00.03XA Contusion of scalp, initial encounter; E87.5 Hyperkalemia; E78.5 Hyperlipidemia, unspecified; I25.10 Atherosclerotic heart disease of native coronary artery without angina pectoris; I08.0 Rheumatic disorders of both mitral and aortic valves; M50.322 Other cervical disc degeneration at C5-C6 level; R29.6 Repeated falls; M15.9 Polyosteoarthritis, unspecified; I83.90 Asymptomatic varicose veins of unspecified lower extremity; Z79.01 Long term (current) use of anticoagulants; Z79.82 Long term (current) use of aspirin; Z79.899 Other long term (current) drug therapy; Z95.810 Presence of automatic (implantable) cardiac defibrillator; Z87.891 Personal history of nicotine dependence; Z92.21 Personal history of antineoplastic chemotherapy; Z92.3 Personal history of irradiation; Z87.01 Personal history of pneumonia (recurrent); Z85.118 Personal history of other malignant neoplasm of bronchus and lung; Z87.39 Personal history of other diseases of the musculoskeletal system and connective tissue; Z88.0 Allergy status to penicillin; Z88.7 Allergy status to serum and vaccine; Z88.8 Allergy status to other drugs, medicaments and biological substances; Y71.2 Prosthetic and other implants, materials and accessory cardiovascular devices associated with adverse incidents; W07.XXXA Fall from chair, initial encounter; Y92.009 Unspecified place in unspecified non-institutional (private) residence as the place of occurrence of the external cause; Z80.0 Family history of malignant neoplasm of digestive organs; Z82.3 Family history of stroke; Z82.49 Family history of ischemic heart disease and other diseases of the circulatory system
CPT/HCPCS: 12011; 36415; 70450; 70486; 71275; 72125; 80053; 83735; 83880; 84100; 84132; 84484; 85025; 85379; 85610; 85730; 87040; 87635; 93005; 93306; 93970; 94640; 94760; 99285

== ENCOUNTER 2021-05-02 02:44 | Observation (INO) | payer MEDICARE, BC ==
--- NOTE | 2021-05-02 03:48 | XR ---
EXAMINATION TYPE: XR chest 2V DATE OF EXAM: 05/02/2021 COMPARISON: 02/22/2021 HISTORY: Short of breath TECHNIQUE: 2 views FINDINGS: Heart is enlarged. There is no heart failure. There is left axillary pacemaker. There are c hest leads. Costophrenic angles are clear. There is minor spurring in the thoracic spine. IMPRESSION: No active cardiopulmonary disease. Mild cardiomegaly. No adverse change.
[2021-05-02 03:50] LABS: Basophils # (A) 0.1 k/uL (0-0.2); Basophils % (A) 0 %; Eosinophils # (A) 0.1 k/uL (0-0.7); Eosinophils % (A) 1 %; HCT 37.5 % (34.0-46.0); HGB 12.2 gm/dL (11.4-16.0); Lymphocytes # (A) 1.4 k/uL (1.0-4.8); Lymphocytes % (A) 13 %; MCH 32.8 pg (25.0-35.0); MCHC 32.6 g/dL (31.0-37.0); MCV 100.7 fL (80.0-100.0); Macrocytosis Slight; Mean Platelet Volume 7.1; Monocytes # (A) 0.6 k/uL (0-1.0); Monocytes % (A) 6 %; Neutrophils # (A) 8.5 k/uL (1.3-7.7); Neutrophils % (A) 79 %; Platelet Count 270 k/uL (150-450); RBC 3.72 m/uL (3.80-5.40); RDW 14.6 % (11.5-15.5); WBC 10.8 k/uL (3.8-10.6)
[2021-05-02 04:05] LABS: Albumin 3.9 g/dL (3.5-5.0); Calcium 8.7 mg/dL (8.4-10.2); Magnesium 2.1 mg/dL (1.6-2.3); Potassium 4.3 mmol/L (3.5-5.1); Total Bilirubin 0.4 mg/dL (0.2-1.3); Total Protein 7.4 g/dL (6.3-8.2)
[2021-05-02 04:09] LABS: INR 0.9 (<1.2); Partial Thromboplastin Time 27.1 sec (22.0-30.0); Prothrombin Time 10.1 sec (9.0-12.0)
[2021-05-02] MEDS ORDERED: IPRATROPIUM-ALBUTEROL 3 ML NEB INHALATION STA (05:40)
--- NOTE | 2021-05-02 07:20 | ED ---
General Adult HPI - General Source: patient, family Mode of arrival: EMS Limitations: physical limitation - History of Present Illness -: hour(s) Severity scale (1-10): 0 Consistency: intermittent Improves with: none Worsens with: none Associated Symptoms: syncope Treatments Prior to Arrival: none <Boni Ospina - Last Filed: 05/02/21 06:51> <Chan Urena Lucila - Last Filed: 05/02/21 08:18> - General Chief complaint: Syncope Stated complaint: Chest Pain Time Seen by Provider: 05/02/21 03:32 - History of Present Illness Initial comments: This patient is a 70-year-old woman who presents to be evaluated for lightheadedness/syncopal episodes. Patient's recent history includes an admission 2 weeks ago for suspected pacemaker malfunction. The patient was reportedly having multiple syncopal episodes and there is concern that there patient has a lead fracture. Tonight the patient had been using commode and when she attempted to get up she became very lightheaded and believes she was have passed out. She called her sister to help her off the commode and then it sounds like she had another syncopal episode or possibly 2. They therefore brought her here for evaluation. Patient denies chest pain. She states she does have some dyspnea but believes is related to her underlying lung disease. She had tried a breathing treatment at home but is still feeling a little short of breath and having some nonproductive cough here. No fever or chills. No chest pain. (Boni Ospina) - Related Data Home Medications Medication Instructions Recorded Confirmed Apixaban [Eliquis] 5 mg PO BID 11/21/20 04/14/21 Glycopyrrolate/Formoterol Fum 2 puff INHALATION RT-BID 11/21/20 04/14/21 [Bevespi Aerosphere Inhaler] Ipratropium-Albuterol Nebulize 3 ml INHALATION RT-QID PRN 11/21/20 04/14/21 [Duoneb 0.5 mg-3 mg/3 ml Soln] Famotidine 40 mg PO AC-SUPPER 11/30/20 04/14/21 ALPRAZolam [Xanax] 0.25 mg PO HS PRN 01/19/21 04/14/21 Acetaminophen [Tylenol] 650 mg PO Q6H PRN 04/14/21 04/14/21 Aspirin EC [Ecotrin Low Dose] 81 mg PO DAILY 04/14/21 04/14/21 Cholecalciferol [Vitamin D3 (25 50 mcg PO DAILY 04/14/21 04/14/21 Mcg = 1000 Iu)] Furosemide [Lasix] 20 mg PO DAILY PRN 04/14/21 04/14/21 Magnesium Chloride [Mag64] 64 mg PO DAILY 04/14/21 04/14/21 Previous Rx's Medication Instructions Recorded Spironolactone [Aldactone] 25 mg PO DAILY #30 tab 01/12/20 Levofloxacin [Levaquin] 500 mg PO Q24H 1 Days #1 tab 04/18/21 Metoprolol Succinate (ER) [Toprol 75 mg PO BID 30 Days #30 tab 04/18/21 XL] Allergies Allergy/AdvReac Type Severity Reaction Status Date / Time losartan [Losartan] Allergy Severe Rash/Hives Verified 05/02/21 03:10 Penicillins Allergy Severe Rash/Hives Verified 05/02/21 03:10 cortisone [Cortisone] AdvReac Severe flushed Verified 05/02/21 03:10 skin, depression Tetanus Vaccines and Toxoid AdvReac Severe huge Verified 05/02/21 03:10 [Tetanus Vaccines & Toxoid] localized swelling Review of Systems ROS Other: All systems not noted in ROS Statement are negative. Constitutional: Denies: fever, chills, weakness Eyes: Denies: vision change Respiratory: Reports: cough. Denies: dyspnea Cardiovascular: Reports: syncope. Denies: chest pain, palpitations, orthopnea, edema Gastrointestinal: Denies: abdominal pain, nausea, vomiting Genitourinary: Denies: dysuria, hematuria Musculoskeletal: Denies: back pain Skin: Denies: rash Neurological: Denies: headache, weakness, numbness, paresthesias, confusion <Boni Ospina - Last Filed: 05/02/21 06:51> ROS Other: All systems not noted in ROS Statement are negative. <Chan Urena - Last Filed: 05/02/21 08:18> ROS Statement: Those systems with pertinent positive or pertinent negative responses have been documented in the HPI. 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 Completed chemo and radiation. 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 History of Any Multi-Drug Resistant Organisms: None Reported Past Surgical History: Pacemaker Additional Past Surgical History / Comment(s): 2013 BiV AICD/generator change 10/2018, 2013 cardiac cath Past Anesthesia/Blood Transfusion Reactions: No Reported Reaction Additional Past Anesthesia/Blood Transfusion Reaction / Comment(s): Pt hsa never had general or spinal anesthesia. Type of Cardiac Device: Biventricular Pacemaker, AICD Device Placement Date:: 2013 Past Psychological History: No Psychological Hx Reported Smoking Status: Former smoker Past Alcohol Use History: None Reported Past Drug Use History: None Reported - Past Family History Brother(s) Family Medical History: Cancer Additional Family Medical History / Comment(s): pancreatic cancer Father Family Medical History: CVA/TIA, Hypertension Additional Family Medical History / Comment(s): third degree block, stroke Mother Family Medical History: Hypertension <Boni Ospina - Last Filed: 05/02/21 06:51> General Exam Limitations: physical limitation General appearance: alert, in no apparent distress Head exam: Present: atraumatic, normocephalic Eye exam: Present: normal appearance. Absent: scleral icterus, conjunctival injection ENT exam: Present: normal oropharynx Neck exam: Present: normal inspection Respiratory exam: Present: wheezes (Trace wheeze), rhonchi. Absent: respiratory distress, rales, stridor Cardiovascular Exam: Present: regular rate, normal rhythm, normal heart sounds. Absent: systolic murmur, diastolic murmur, rubs, gallop GI/Abdominal exam: Present: soft. Absent: distended, tenderness, guarding, nancy ound, rigid, mass Extremities exam: Present: normal inspection, normal capillary refill. Absent: pedal edema, calf tenderness Back exam: Present: normal inspection Neurological exam: Present: alert. Absent: motor sensory deficit Skin exam: Present: warm, dry, intact, normal color. Absent: rash <Boni Ospina - Last Filed: 05/02/21 06:51> Course Vital Signs 05/02/21 05/02/21 05/02/21 02:54 03:30 04:09 Temperature 97.5 F L Pulse Rate 68 68 82 Respiratory 24 24 18 Rate Blood Pressure 172/85 189/79 176/80 O2 Sat by Pulse 98 98 97 Oximetry 05/02/21 05/02/21 05/02/21 05:57 06:00 06:07 Temperature Pulse Rate 72 86 70 Respiratory 18 Rate Blood Pressure 149/85 O2 Sat by Pulse Oximetry 05/02/21 07:00 Temperature Pulse Rate 86 Respiratory 18 Rate Blood Pressure 145/72 O2 Sat by Pulse 95 Oximetry EKG Findings - EKG Comments: EKG Findings:: Twelve-lead ECG appears to show a paced rhythm at 78. There are occasional PVCs. - EKG Results: EKG: interpreted by ERMD <Boni Ospina - Last Filed: 05/02/21 06:51> Medical Decision Making - Lab Data Result diagrams: 05/02/21 03:34 05/02/21 03:34 <Boni Ospina - Last Filed: 05/02/21 06:51> - Lab Data Result diagrams: 05/02/21 03:34 05/02/21 03:34 <Chan Urena - Last Filed: 05/02/21 08:18> - Medical Decision Making 70-year-old female with recurrent syncope. She has had issues with her pacemaker defibrillator over the past several months. She had 2 episodes this morning of syncope while she was in a chair. This did not result in any injury. Her pacemaker is interrogated in the emergency department these results are pending. Admitted to [facility] with cardiology consultation. (Chan Urena) - Lab Data Lab Results 05/02/21 05/02/21 05/02/21 Range/Units 03:34 03:34 03:34 WBC 10.8 H (3.8-10.6) k/uL RBC 3.72 L (3.80-5.40) m/uL Hgb 12.2 (11.4-16.0) gm/dL Hct 37.5 (34.0-46.0) % MCV 100.7 H (80.0-100.0) fL MCH 32.8 (25.0-35.0) pg MCHC 32.6 (31.0-37.0) g/dL RDW 14.6 (11.5-15.5) % Plt Count 270 (150-450) k/uL MPV 7.1 Neutrophils % 79 % Lymphocytes % 13 % Monocytes % 6 % Eosinophils % 1 % Basophils % 0 % Neutrophils # 8.5 H (1.3-7.7) k/uL Lymphocytes # 1.4 (1.0-4.8) k/uL Monocytes # 0.6 (0-1.0) k/uL Eosinophils # 0.1 (0-0.7) k/uL Basophils # 0.1 (0-0.2) k/uL Macrocytosis Slight PT 10.1 (9.0-12.0) sec INR 0.9 (<1.2) APTT 27.1 (22.0-30.0) sec Sodium 136 L (137-145) mmol/L Potassium 4.3 (3.5-5.1) mmol/L Chloride 104 (98-107) mmol/L Carbon Dioxide 22 (22-30) mmol/L Anion Gap 10 mmol/L BUN 26 H (7-17) mg/dL Creatinine 1.07 H (0.52-1.04) mg/dL Est GFR (CKD-EPI)AfAm 60 (>60 ml/min/1.73 sqM) Est GFR (CKD-EPI)NonAf 52 (>60 ml/min/1.73 sqM) Glucose 98 (74-99) mg/dL Calcium 8.7 (8.4-10.2) mg/dL Magnesium 2.1 (1.6-2.3) mg/dL Total Bilirubin 0.4 (0.2-1.3) mg/dL AST 25 (14-36) U/L ALT 19 (4-34) U/L Alkaline Phosphatase 43 (38-126) U/L NT-Pro-B Natriuret Pep pg/mL Total Protein 7.4 (6.3-8.2) g/dL Albumin 3.9 (3.5-5.0) g/dL 05/02/21 Range/Units 03:34 WBC (3.8-10.6) k/uL RBC (3.80-5.40) m/uL Hgb (11.4-16.0) gm/dL Hct (34.0-46.0) % MCV (80.0-100.0) fL MCH (25.0-35.0) pg MCHC (31.0-37.0) g/dL RDW (11.5-15.5) % Plt Count (150-450) k/uL MPV Neutrophils % % Lymphocytes % % Monocytes % % Eosinophils % % Basophils % % Neutrophils # (1.3-7.7) k/uL Lymphocytes # (1.0-4.8) k/uL Monocytes # (0-1.0) k/uL Eosinophils # (0-0.7) k/uL Basophils # (0-0.2) k/uL Macrocytosis PT (9.0-12.0) sec INR (<1.2) APTT (22.0-30.0) sec Sodium (137-145) mmol/L Potassium (3.5-5.1) mmol/L Chloride (98-107) mmol/L Carbon Dioxide (22-30) mmol/L Anion Gap mmol/L BUN (7-17) mg/dL Creatinine (0.52-1.04) mg/dL Est GFR (CKD-EPI)AfAm (>60 ml/min/1.73 sqM) Est GFR (CKD-EPI)NonAf (>60 ml/min/1.73 sqM) Glucose (74-99) mg/dL Calcium (8.4-10.2) mg/dL Magnesium (1.6-2.3) mg/dL Total Bilirubin (0.2-1.3) mg/dL AST (14-36) U/L ALT (4-34) U/L Alkaline Phosphatase (38-126) U/L NT-Pro-B Natriuret Pep 223 pg/mL Total Protein (6.3-8.2) g/dL Albumin (3.5-5.0) g/dL Disposition <Boni Ospina - Last Filed: 05/02/21 06:51> Is patient prescribed a controlled substance at d/c from ED?: No Decision to Admit Reason: Admit from EC Decision Date: 05/02/21 Decision Time: 08:18 <Chan Urena - Last Filed: 05/02/21 08:18> Clinical Impression: Recurrent syncope Disposition: ADMITTED IP TO THIS HOSP Condition: Stable Referrals: Arian Forrest MD [Primary Care Provider] - 1-2 days
[2021-05-02] MEDS ORDERED: NALOXONE 0.4 MG/ML 1 ML VIAL IV PRN (08:14)
[2021-05-02] MEDS ORDERED: ALPRAZolam 0.25 MG TAB PO PRN (08:30)
[2021-05-02] MEDS ORDERED: IPRATROPIUM-ALBUTEROL 3 ML NEB INHALATION PRN (08:30)
[2021-05-02] MEDS ORDERED: ASPIRIN 81 MG PO SCH (09:00)
[2021-05-02] MEDS ORDERED: METOPROLOL SUCCINATE (ER) 25 MG TAB.ER.24H PO SCH (09:00)
--- NOTE | 2021-05-02 10:53 | P.CRDCN ---
History of Present Illness Consult date: 05/02/21 History of present illness: HISTORY OF PRESENT ILLNESS: This is a 70 year old female with a past medical history significant for mild nonobstructive CAD, small cell lung CA with previous chemo and radiation, paroxysmal atrial fibrillation, nonischemic cardiomyopathy with IV AICD in 2013, hypertension, hyperlipidemia, and former nicotine dependence. Patient follows in the office with Dr. You. We have been asked to see the patient in consul tation for syncope. Patient examined at the bedside. Patient was recently admitted to the hospital due to syncope. 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 At that time laser lead extraction and implantation of new RV lead was not recommended. Last month, the patient was re-evaluated by Dr. You secondary to syncope. Patient was having intermittent loss of capture on telemetry. Patients device was adjusted by Dr. You. Patient was also discharged home with a LifeVest, however she wa s not wearing it. Patient states she was on the toilet around 130am this morning when she felt tired and thought she might pass out. She called her sister who came over. The patients sister reports that she had three syncopal episodes. The first was when she stood up from the toilet to go to the couch and then she had two more while sitting on the couch. The sister states she completely lost consc iousness and she had to perform a sternal rub to arouse the patient. * EKG reveals ventricular paced rhythm. * Chest xray no active cardiopulmonary disease. Mild cardiomegaly. * Laboratory data: WBC 10.8. Hemoglobin 12.2. Platelet count 270. Sodium 136. Potassium 4.3. BUN 26. Creatinine 1.07. ProBNP 223. * Current home cardiac medications include Aldactone 25 mg daily, metoprolol succinate 75 mg twice a day, Lasix 20 mg daily as needed, aspirin 81 mg daily, Eliquis 5 mg twice a day * Most recent echocardiogram obtained in March 2021 revealed ejection fraction 55-60%, mild MR, mild TR, and mild pulmonary hypertension * Cardiac catheterization history: 2013 with mild CAD REVIEW OF SYSTEMS: At the time of my exam: CONSTITUTIONAL: Denies fever or chills. HEENT: Denies blurred vision, vision changes, or eye pain. Denies hemoptysis CARDIOVASCULAR: Denies chest pain. Denies orthopnea. Denies PND. Denies palpitations RESPIRATORY: Denies shortness of breath. GASTROINTESTINAL: Denies abdominal pain. Denies nausea or vomiting. HEMATOLOGIC: Denies bleeding disorders. GENITOURINARY: Denies any blood in urine. SKIN: Denies pruitis. Denies rash. PHYSICAL EXAM: VITAL SIGNS: Reviewed. GENERAL: Well-developed in no acute distress. HEENT: Head is normocephalic. Pupils are equal, round. Sclerae anicteric. Mucous membranes of the mouth are moist. Neck supple. No JVD or thyromegaly LUNGS: Respirations even and unlabored. Lungs essentially clear to auscultation bilaterally. HEART: Regular rate and rhythm. S1 and S2 heard. ABDOMEN: Soft. Nondistended. Nontender. EXTREMITIES: Normal range of motion. No clubbing or cyanosis. Peripheral pulses intact. No lower extremity edema NEUROLOGIC: Awake and alert. Oriented x 3. ASSESSMENT: Syncope Recent hospitalization for syncope with loss of capture on telemetry with adjustments made to PPM programming History of nonischemic cardiomyopathy with previous AICD implantation Mild nonobstructive coronary artery disease Paroxysmal atrial fibrillation on Eliquis Small cell lung cancer with previous chemo and radiation Hypertension Hyperlipidemia Former nicotine dependence PLAN: Patient refusing to wear LifeVest at home Continue telemetry monitoring Resume home cardiac medications Discontinue aspirin and metoprolol Will attempt to speak with [employer] Rep to see if patient had any lose of capture this morning during her syncopal episodes Consult EP, Dr. You, for evaluation Further recommendations pending patient course Nurse practitioner note has been reviewed by physician. Signing provider agrees with the documented findings, assessment, and plan of care. Past Medical History Past Medical History: Atrial Fibrillation, Coronary Artery Disease (CAD), Ca ncer, Heart Failure, COPD, GERD/Reflux, Hypertension, Neurologic Disorder, Osteoarthritis (OA), Pneumonia, Syncope Additional Past Medical History / Comment(s): Pt recently admitted to [facility] on 04/14/21 with syncope thought most likely d/t pacer failure/went home with life vest which pt states did not work d/t fit issues/leads falling off so no longer wearing and possible pneumonia. Other hx: 2020 malignant HTN with pulmonary vascular congestion/R upper lung mass/small cell cancer tx with chemo and radiation, FALLS, nonischemic cardiomyopathy, paroxysmal Afib, chronic CHF, CHB with BiV AICD, bronchitis, arthritis in fingers/bilateral knees/toes/lumbar spine, tendonitis R ankle, varicosities. History of Any Multi-Drug Resistant Organisms: None Reported Past Surgical History: Heart Catheterization, Pacemaker Additional Past Surgical History / Comment(s): 2013 BiV AICD/generator change 2018, DFT, bronch with needle aspiration/biopsy Past Anesthesia/Blood Transfusion Reactions: No Reported Reaction Additional Past Anesthesia/Blood Transfusion Reaction / Comment(s): Pt hsa never had general or spinal anesthesia. Type of Cardiac Device: Biventricular Pacemaker, AICD Device Placement Date:: 2013 original implant then gen change 2018 Smoking Status: Former smoker - Past Family History Brother(s) Family Medical History: Cancer Additional Family Medical History / Comment(s): pancreatic cancer Father Family Medical History: CVA/TIA, Hypertension Additional Family Medical History / Comment(s): third degree block, stroke Mother Family Medical History: Hypertension Medications and Allergies Home Medications Medication Instructions Recorded Confirmed Type Spironolactone [Aldactone] 25 mg PO DAILY #30 tab 01/12/20 05/02/21 Rx Apixaban [Eliquis] 5 mg PO BID 11/21/20 05/02/21 History Glycopyrrolate/Formoterol Fum 2 puff INHALATION RT-BID 11/21/20 05/02/21 History [Bevespi Aerosphere Inhaler] Ipratropium-Albuterol Nebulize 3 ml INHALATION RT-QID PRN 11/21/20 05/02/21 History [Duoneb 0.5 mg-3 mg/3 ml Soln] Famotidine 40 mg PO AC-SUPPER 11/30/20 05/02/21 History ALPRAZolam [Xanax] 0.25 mg PO HS PRN 01/19/21 05/02/21 History Acetaminophen [Tylenol] 650 mg PO Q6H PRN 04/14/21 05/02/21 History Aspirin EC [Ecotrin Low Dose] 81 mg PO DAILY 04/14/21 05/02/21 History Cholecalciferol [Vitamin D3 (25 50 mcg PO DAILY 04/14/21 05/02/21 History Mcg = 1000 Iu)] Furosemide [Lasix] 20 mg PO DAILY PRN 04/14/21 05/02/21 History Magnesium Chloride [Mag64] 64 mg PO DAILY 04/14/21 05/02/21 History Metoprolol Succinate (ER) [Toprol 75 mg PO BID 30 Days #30 tab 04/18/21 05/02/21 Rx XL] Allergies Allergy/AdvReac Type Severity Reaction Status Date / Time losartan [Losartan] Allergy Severe Rash/Hives Verified 05/02/21 08:23 Penicillins Allergy Severe Rash/Hives Verified 05/02/21 08:23 cortisone [Cortisone] AdvReac Severe flushed Verified 05/02/21 08:23 skin, depression Tetanus Vaccines and Toxoid AdvReac Severe huge Verified 05/02/21 08:23 [Tetanus Vaccines & Toxoid] localized swelling Physical Exam Vitals: Vital Signs Temp Pulse Resp BP Pulse Ox 05/02/21 10:11 90 16 145/72 98 05/02/21 07:00 86 18 145/72 95 05/02/21 06:07 70 05/02/21 06:00 86 18 149/85 05/02/21 05:57 72 05/02/21 04:09 82 18 176/80 97 05/02/21 03:30 68 24 189/79 98 05/02/21 02:54 97.5 F L 68 24 172/85 98 Intake and Output 05/01/21 05/02/21 05/02/21 22:59 06:59 14:59 Other: Weight 130.635 kg 130.635 kg Results 05/02/21 03:34 05/02/21 03:34 Cardiac Enzymes 05/02/21 Range/Units 03:34 AST 25 (14-36) U/L Coagulation 05/02/21 Range/Units 03:34 PT 10.1 (9.0-12.0) sec APTT 27.1 (22.0-30.0) sec CBC 05/02/21 Range/Units 03:34 WBC 10.8 H (3.8-10.6) k/uL RBC 3.72 L (3.80-5.40) m/uL Hgb 12.2 (11.4-16.0) gm/dL Hct 37.5 (34.0-46.0) % Plt Count 270 (150-450) k/uL Comprehensive Metabolic Panel 05/02/21 Range/Units 03:34 Sodium 136 L (137-145) mmol/L Potassium 4.3 (3.5-5.1) mmol/L Chloride 104 (98-107) mmol/L Carbon Dioxide 22 (22-30) mmol/L BUN 26 H (7-17) mg/dL Creatinine 1.07 H (0.52-1.04) mg/dL Glucose 98 (74-99) mg/dL Calcium 8.7 (8.4-10.2) mg/dL AST 25 (14-36) U/L ALT 19 (4-34) U/L Alkaline Phosphatase 43 (38-126) U/L Total Protein 7.4 (6.3-8.2) g/dL Albumin 3.9 (3.5-5.0) g/dL Current Medications Generic Name Dose Route Start Last Admin Trade Name Freq PRN Reason Stop Dose Admin Acetaminophen 650 mg 05/02/21 08:30 Acetaminophen Tab 325 Mg Tab PO Q6H PRN Fever and/ or Mild Pain Albuterol/Ipratropium 3 ml 05/02/21 08:30 Ipratropium-Albuterol 3 Ml Neb INHALATION RT-QID PRN Shortness Of Breath Alprazolam 0.25 mg 05/02/21 08:30 Alprazolam 0.25 Mg Tab PO HS PRN Insomnia/Anxiety Apixaban 5 mg 05/02/21 09:00 Apixaban 5 Mg Tab PO BID [facility] Protocol Cholecalciferol 50 mcg 05/02/21 09:00 Cholecalciferol 25 Mcg (1000 Iu) Tablet PO DAILY [facility] Famotidine 40 mg 05/02/21 17:30 Famotidine 20 Mg Tab PO AC-SUPPER [facility] Formoterol Fumarate 20 mcg 05/02/21 20:00 Formoterol Fumarate 20 Mcg/2 Ml Nebu INHALATION RT-BID [facility] Ipratropium [place] 0.5 mg 05/02/21 12:00 Ipratropium 0.5 Mg/2.5 Ml Nebu INHALATION RT-QID [facility] Naloxone HCl 0.2 mg 05/02/21 08:14 Naloxone 0.4 Mg/Ml 1 Ml Vial IV Q2M PRN Opioid Reversal Intake and Output 05/01/21 05/02/21 05/02/21 22:59 06:59 14:59 Other: Weight 130.635 kg 130.635 kg Patient Weight 05/03/21 06:59 Weight 130.635 kg 05/02/21 03:34 05/02/21 03:34
[2021-05-02] MEDS: IPRATROPIUM 0.5 MG/2.5 ML NEBU INHALATION SCH ×3 (11:09→20:45)
[2021-05-02] MEDS: APIXABAN 5 MG TAB PO SCH ×2 (13:08→19:40)
[2021-05-02] MEDS: CHOLECALCIFEROL 25 MCG (1000 IU) TABLET PO SCH (13:08)
[2021-05-02] MEDS: ACETAMINOPHEN TAB 325 MG TAB PO PRN ×2 (13:13→19:53)
--- NOTE | 2021-05-02 16:15 | P.HPIM ---
History of Present Illness H&P Date: 05/02/21 History of Presenting Illness: Patient is a very pleasant 70-year-old female with a past medical history of nonischemic cardiomyopathy resulting in AICD placement, hypertension, hyperlipidemia, small cell lung carcinoma in remission status post chemotherapy and radiation treatments, COPD not home oxygen dependent, paroxysmal atrial fibrillation on anticoagulation with Eliquis, and recent recurrent syncopal episodes. Patient reports that she has undergone recurrent syncopal episodes and is aware that her pacemaker needs replaced, however she reports that she was referred to [facility] and patient declined. Patient reports on April 14 having a syncopal episode resulting in admission to the hospital and undergoing procedure in which she states cardiology disconnected her right ventricular lead secondary to her defibrillator misfiring and reports of documented loss of capture and she was later discharged home with LifeVest on 04/18/21. Patient reports she returned to the chemist steroids office on Friday and underwent a second procedure to redirect her left ventricular leads. Patient states again this morning she had another syncopal episode and called cardiology who instructed her to come to the emergency department for further evaluation. She denies any recent fevers, chills, dizziness, lightheadedness, chest pain, palpitations, nausea, vomiting, diaphoresis, or experiencing any numbness/tingling/weakness in her extremities. Patient states she has no warning for syncopal episode stating "it just comes out of nowhere". Pt was seen and fully evaluated in the emergency department. EKG completed revealing a ventricular paced rhythm at 70 bpm. Chest x-ray negative for acute cardiopulmonary process. CBC revealed mild leukocytosis with WBC count of 10.8 and slight elevation of renal function with BUN of 26, creatinine 1.07 and GFR 52 (baseline creatinine 0.9). Patient was admitted under our services with consultation to cardiology. Review of systems: Pertinent positives and negatives as discussed in HPI, a complete review of systems was performed and all other systems are negative. Physical exam: Vital signs reviewed and stable. General: Nontoxic, no distress and appears stated age. Derm: Skin warm and dry, normal coloration for ethnicity. Bruising bilateral upper extremities Head: Atraumatic, normocephalic and symmetric. Eyes: EOMs intact, no lid lag, and anicteric sclera Mouth: no lip lesions, mucus membranes moist Cardiovascular: regular rate and rhythm with normal S1S2, systolic murmur, positive posterior tibial pulses bilaterally, and cap refill < 2 seconds. . Pacemaker left anterior chest. Significant scarring right anterior chest (from previous infected port resulting in removal and debridement). Lungs: Respirations even, regular, and unlabored on room air. Lungs diminished, no rhonchi, no rales, no wheezing, and no accessory muscle usage. Abdominal: Obese abdomen soft, nontender to palpation, no guarding, no appreciable organomegaly Ext: ROM intact. No gross muscle atrophy, 3+ pitting bilateral lower extremity edema, no contractures Neuro: Speech clear, face symmetrical and CN II-XII grossly intact with no noted focal neuro deficits Psych: Alert and oriented to person, place, time, and situation. Appropriate and pleasant affect. Assessment and Plan of Care: Recurrent syncopal episodes History of nonischemic cardiomyopathy resulting in AICD placement Hypertension Hyperlipidemia -Consult cardiology -Consult cardiac electrophysiology -Continuous telemetry monitoring -Fall precautions -Continue daily medication regimen with Eliquis. At this time we will hold furosemide and Aldactone secondary to patient having slight elevation in renal function and concerns that she may need to undergo cardiac procedure. COPD History of small cell lung carcinoma in remission status post chemotherapy and radiation treatments -Provide patient with oxygen as needed to maintain SpO2 equal to or greater than 92%. -Encourage use of incentive spirometry. -Continue formoterol twice daily with duo nebs as needed for shortness of breath and/or wheezing. The patient is admitted with an anticipated less than 2 midnight stay for evaluation of recurrent syncopal episodes. CODE STATUS: Full code DVT prophylaxis: Eliquis Discussed with: Patient, patient's family member at bedside, and RN. Anticipated discharge date: 1-[address]: Home A total of 45 minutes was spent on the care of this complex patient more than 50% of the time was spent in counseling and care coordination. 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 Completed chemo and radiation. 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 History of Any Multi-Drug Resistant Organisms: None Reported Past Surgical History: Pacemaker Additional Past Surgical History / Comment(s): 2013 BiV AICD/generator change 2013 cardiac cath Past Anesthesia/Blood Transfusion Reactions: No Reported Reaction Additional Past Anesthesia/Blood Transfusion Reaction / Comment(s): Pt hsa never had general or spinal anesthesia. Type of Cardiac Device: Biventricular Pacemaker, AICD Device Placement Date:: 2013 Past Psychological History: No Psychological Hx Reported Smoking Status: Former smoker Past Alcohol Use History: None Reported Past Drug Use History: None Reported - Past Family History Brother(s) Family Medical History: Cancer Additional Family Medical History / Comment(s): pancreatic cancer Father Family Medical History: CVA/TIA, Hypertension Additional Family Medical History / Comment(s): third degree block, stroke Mother Family Medical History: Hypertension Medications and Allergies Home Medications Medication Instructions Recorded Confirmed Type Spironolactone [Aldactone] 25 mg PO DAILY #30 tab 01/12/20 05/02/21 Rx Apixaban [Eliquis] 5 mg PO BID 11/21/20 05/02/21 History Glycopyrrolate/Formoterol Fum 2 puff INHALATION RT-BID 11/21/20 05/02/21 History [Bevespi Aerosphere Inhaler] Ipratropium-Albuterol Nebulize 3 ml INHALATION RT-QID PRN 11/21/20 05/02/21 History [Duoneb 0.5 mg-3 mg/3 ml Soln] Famotidine 40 mg PO AC-SUPPER 11/30/20 05/02/21 History ALPRAZolam [Xanax] 0.25 mg PO HS PRN 01/19/21 05/02/21 History Acetaminophen [Tylenol] 650 mg PO Q6H PRN 04/14/21 05/02/21 History Aspirin EC [Ecotrin Low Dose] 81 mg PO DAILY 04/14/21 05/02/21 History Cholecalciferol [Vitamin D3 (25 50 mcg PO DAILY 04/14/21 05/02/21 History Mcg = 1000 Iu)] Furosemide [Lasix] 20 mg PO DAILY PRN 04/14/21 05/02/21 History Magnesium Chloride [Mag64] 64 mg PO DAILY 04/14/21 05/02/21 History Metoprolol Succinate (ER) [Toprol 75 mg PO BID 30 Days #30 tab 04/18/21 05/02/21 Rx XL] Allergies Allergy/AdvReac Type Severity Reaction Status Date / Time losartan [Losartan] Allergy Severe Rash/Hives Verified 05/02/21 08:23 Penicillins Allergy Severe Rash/Hives Verified 05/02/21 08:23 cortisone [Cortisone] AdvReac Severe flushed Verified 05/02/21 08:23 skin, depression Tetanus Vaccines and Toxoid AdvReac Severe huge Verified 05/02/21 08:23 [Tetanus Vaccines & Toxoid] localized swelling Physical Exam Vitals: Vital Signs Temp Pulse Resp BP Pulse Ox 05/02/21 07:00 86 18 145/72 95 05/02/21 06:07 70 05/02/21 06:00 86 18 149/85 05/02/21 05:57 72 05/02/21 04:09 82 18 176/80 97 05/02/21 03:30 68 24 189/79 98 05/02/21 02:54 97.5 F L 68 24 172/85 98 Intake and Output 05/01/21 05/02/21 05/02/21 22:59 06:59 14:59 Other: Weight 130.635 kg Results CBC & Chem 7: 05/02/21 03:34 05/02/21 03:34 Labs: Abnormal Lab Results - Last 24 Hours (Table) 05/02/21 05/02/21 Range/Units 03:34 03:34 WBC 10.8 H (3.8-10.6) k/uL RBC 3.72 L (3.80-5.40) m/uL MCV 100.7 H (80.0-100.0) fL Neutrophils # 8.5 H (1.3-7.7) k/uL Sodium 136 L (137-145) mmol/L BUN 26 H (7-17) mg/dL Creatinine 1.07 H (0.52-1.04) mg/dL
[2021-05-02] MEDS ORDERED: FAMOTIDINE 20 MG TAB PO SCH (17:30)
[2021-05-02] MEDS: FORMOTEROL FUMARATE 20 MCG/2 ML NEBU INHALATION SCH (20:46)
[2021-05-03] MEDS: ACETAMINOPHEN TAB 325 MG TAB PO PRN (03:45)
[2021-05-03] MEDS: CHOLECALCIFEROL 25 MCG (1000 IU) TABLET PO SCH (07:56)
[2021-05-03] MEDS: APIXABAN 5 MG TAB PO SCH (07:56)
[2021-05-03] MEDS: IPRATROPIUM 0.5 MG/2.5 ML NEBU INHALATION SCH ×2 (08:40→11:25)
[2021-05-03] MEDS: FORMOTEROL FUMARATE 20 MCG/2 ML NEBU INHALATION SCH (08:40)
--- NOTE | 2021-05-03 10:03 | P.PN ---
Subjective Progress Note Date: 05/03/21 HISTORY OF PRESENT ILLNESS: This is a 70 year old female with a past medical history significant for mild nonobstructive CAD, small cell lung CA with previous chemo and radiation, pa roxysmal atrial fibrillation, nonischemic cardiomyopathy with IV AICD in 2013, hypertension, hyperlipidemia, and former nicotine dependence. Patient follows in the office with Dr. You. We have been asked to see the patient in consultation for syncope. Patient examined at the bedside. Patient was recently admitted to the hospital due to syncope. 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 At that time laser lead extraction and implantation of new RV lead was not recommended. Last month, the patient was re-evaluated by Dr. You secondary to syncope. Patient was having intermittent loss of capture on telemetry. Patients device was adjusted by Dr. You. Patient was also discharged home with a LifeVest, however she was not wearing it. Patient states she was on the toilet around 130am this morning when she felt tired and thought she might pass out. She called her sister who came over. The patients sister reports that she had three syncopal episodes. The first was when she stood up from the toilet to go to the couch and then she had two more while sitting on the couch. The sister states she completely lost consciousness and she had to perform a sternal rub to arouse the patient. * EKG reveals ventricular paced rhythm. * Chest xray no active cardiopulmonary disease. Mild cardiomegaly. * Laboratory data: WBC 10.8. Hemoglobin 12.2. Platelet count 270. Sodium 136. Potassium 4.3. BUN 26. Creatinine 1.07. ProBNP 223. * Current home cardiac medications include Aldactone 25 mg daily, metoprolol succinate 75 mg twice a day, Lasix 20 mg daily as needed, aspirin 81 mg daily, Eliquis 5 mg twice a day * Most recent echocardiogram obtained in March 2021 revealed ejection fraction 55-60%, mild MR, mild TR, and mild pulmonary hypertension * Cardiac catheterization history: 2013 with mild CAD 05/03/2021 Patient examined this morning at the bedside. Patient denies chest pain or pressure. Denies SOB. Vital signs are stable. No further episodes of syncope. PHYSICAL EXAM: VITAL SIGNS: Reviewed. GENERAL: Well-developed in no acute distress. HEENT: Head is normocephalic. Pupils are equal, round. Sclerae anicteric. Mucous membranes of the mouth are moist. Neck supple. No JVD or thyromegaly LUNGS: Respirations even and unlabored. Lungs essentially clear to auscultation bilaterally. HEART: Regular rate and rhythm. S1 and S2 heard. ABDOMEN: Soft. Nondistended. Nontender. EXTREMITIES: Normal range of motion. No clubbing or cyanosis. Peripheral pulses intact. No lower extremity edema NEUROLOGIC: Awake and alert. Oriented x 3. ASSESSMENT: Syncope Recent hospitalization for syncope with loss of capture on telemetry with adjustments made to PPM programming History of nonischemic cardiomyopathy with previous AICD implantation Mild nonobstructive coronary artery disease Paroxysmal atrial fibrillation on Eliquis Small cell lung cancer with previous chemo and radiation Hypertension Hyperlipidemia Former nicotine dependence PLAN: Patient refusing to wear LifeVest at home Continue telemetry monitoring. Reviewed telemetry overnight with no events noted. Spoke with [employer] Rep yesterday who will be in today to evaluate pacemaker and make adjustments Await evaluation by Dr. You Further recommendations pending patient course Nurse practitioner note has been reviewed by physician. Signing provider agrees with the documented findings, assessment, and plan of care. Objective - Vital Signs Vital signs: Vital Signs Temp 97.5 F L 05/03/21 07:00 Pulse 80 05/03/21 08:55 Resp 17 05/03/21 08:00 BP 160/70 05/03/21 07:00 Pulse Ox 97 05/03/21 07:00 Intake & Output 05/02/21 05/03/21 05/03/21 18:59 06:59 18:59 Intake Total 476 236 Output Total 300 Balance 476 -300 236 Weight 130.635 kg Intake: Oral 476 236 Output: Urine 300 Other: Voiding Method Toilet Toilet Toilet # Voids 2 2 1 - Labs CBC & Chem 7: 05/02/21 03:34 05/02/21 03:34
--- NOTE | 2021-05-03 14:03 | P.DS ---
Providers Date of admission: 05/02/21 08:14 Expected date of discharge: 05/03/21 Attending physician: Lena Sebastian DO Consults: 05/02/21 08:15 Consult Physician Routine Consulting Provider: Gonzalo Bojorquez Consult Reason/Comments: syncope Do you want consulting provider notified?: Already Contacted 05/02/21 09:59 Consult Physician Routine Consulting Provider: Rocco You Consult Reason/Comments: syncope Do you want consulting provider notified?: Yes Primary care physician: Arian Forrest MD Hospital Course: Discharge Diagnosis: Recurrent syncopal episodes, patient to follow-up next week with Dr. You control systems engineer for new pacemaker lead placement. Patient currently refusing but strongly encouraged to wear her LifeVest at all times as previously discussed. History of nonischemic cardiomyopathy resulting in AICD placement Hypertension Hyperlipidemia COPD History of small cell lung carcinoma in remission status post chemotherapy and radiation treatments Hospital Course: Patient is a very pleasant 70-year-old female with a past medical history of nonischemic cardiomyopathy resulting in AICD placement, hypertension, hyperlipidemia, small cell lung carcinoma in remission status post chemotherapy and radiation treatments, COPD not home oxygen dependent, paroxysmal atrial fibrillation on anticoagulation with Eliquis, and recent recurrent syncopal episodes. Patient reported that she has undergone recurrent syncopal episodes and is aware that her pacemaker needs replaced, however she reported that she was referred to [facility] and patient declined. Patient reports on April 14 having a syncopal episode resulting in admission to the hospital and undergoing procedure in which she states cardiology disconnected her right ventricular lead secondary to her defibrillator misfiring and reports of documented loss of capture and she was later discharged home with LifeVest on 04/18/21. Patient reports she returned to the certified coatings inspector office on Friday and underwent a second procedure to redirect her left ventricular leads. Patient states again this morning she had another syncopal episode and called cardiology who instructed her to come to the emergency department for further evaluation. She denied any recent fevers, chills, dizziness, lightheadedness, chest pain, palpitations, nausea, vomiting, diaphoresis, or experiencing any numbness/tingling/weakness in her extremities. Patient stated she has no warning signs of syncopal episode stating "it just comes out of nowhere". Pt was seen and fully evaluated in the emergency department. EKG completed revealing a ventricular paced rhythm at 70 bpm. Chest x-ray negative for acute cardiopulmonary process. CBC revealed mild leukocytosis with WBC count of 10.8 and slight elevation of renal function with BUN of 26, creatinine 1.07 and GFR 52 (baseline creatinine 0.9). Patient was admitted under our services with consultation to cardiology and electrophysiology. Patient evaluated and pacemaker was interrogated. Report reviewed by Dr. You. Electrophysiology discussed options with patient and they have agreed for patient to be discharged home and return in [address] You to place a new pacemaker lead. Patient is currently asymptomatic and denies having any headache, lightheadedness, dizziness, chest pain, palpitations, shortness of breath, weakness, numbness, or fatigue. Patient encouraged to wear her LifeVest as previously instructed and to continue with current daily cardiac medication regimen. Physical exam: Vital signs reviewed and stable. General: Nontoxic, no distress and appears stated age. Derm: Skin warm and dry, normal coloration for ethnicity. Bruising bilateral upper extremities and right shoulder Head: Atraumatic, normocephalic and symmetric. Old bruising to right orbital region, right cheek Eyes: EOMs intact, no lid lag, and anicteric sclera Mouth: no lip lesions, mucus membranes moist Cardiovascular: regular rate and rhythm with normal S1S2, systolic murmur, positive posterior tibial pulses bilaterally, and cap refill < 2 seconds. . Pacemaker left anterior chest. Significant scarring right anterior chest (from previous infected port resulting in removal and debridement). Lungs: Respirations even, regular, and unlabored on room air. Lungs diminished, no rhonchi, no rales, no wheezing, and no accessory muscle usage. Abdominal: Obese abdomen soft, nontender to palpation, no guarding, no appreciable organomegaly Ext: ROM intact. No gross muscle atrophy, 3+ pitting bilateral lower extremity edema, no contractures Neuro: Speech clear, face symmetrical and CN II-XII grossly intact with no noted focal neuro deficits Psych: Alert and oriented to person, place, time, and situation. Appropriate and pleasant affect. A total of 45 minutes of time were spent preparing this complex discharge summary. Patient Condition at Discharge: Stable Plan - Discharge Summary Discharge Rx Participant: No New Discharge Prescriptions: No Action Spironolactone [Aldactone] 25 mg PO DAILY #30 tab Ipratropium-Albuterol Nebulize [Duoneb 0.5 mg-3 mg/3 ml Soln] 3 ml INHALATION RT-QID PRN PRN Reason: Shortness Of Breath Glycopyrrolate/Formoterol Fum [Bevespi Aerosphere Inhaler] 2 puff INHALATION RT-BID Acetaminophen [Tylenol] 650 mg PO Q6H PRN PRN Reason: Fever And/ Or Pain Metoprolol Succinate (ER) [Toprol XL] 75 mg PO BID 30 Days #30 tab Apixaban [Eliquis] 5 mg PO BID Famotidine 40 mg PO AC-SUPPER ALPRAZolam [Xanax] 0.25 mg PO HS PRN PRN Reason: Insomnia/Anxiety Aspirin EC [Ecotrin Low Dose] 81 mg PO DAILY Cholecalciferol [Vitamin D3 (25 Mcg = 1000 Iu)] 50 mcg PO DAILY Furosemide [Lasix] 20 mg PO DAILY PRN PRN Reason: swelling Magnesium Chloride [Mag64] 64 mg PO DAILY Discharge Medication List Spironolactone [Aldactone] 25 mg PO DAILY #30 tab 01/12/20 [Rx] Apixaban [Eliquis] 5 mg PO BID 11/21/20 [History] Glycopyrrolate/Formoterol Fum [Bevespi Aerosphere Inhaler] 2 puff INHALATION RT- BID 11/21/20 [History] Ipratropium-Albuterol Nebulize [Duoneb 0.5 mg-3 mg/3 ml Soln] 3 ml INHALATION RT-QID PRN 11/21/20 [History] Famotidine 40 mg PO AC-SUPPER 11/30/20 [History] ALPRAZolam [Xanax] 0.25 mg PO HS PRN 01/19/21 [History] Acetaminophen [Tylenol] 650 mg PO Q6H PRN 04/14/21 [History] Aspirin EC [Ecotrin Low Dose] 81 mg PO DAILY 04/14/21 [History] Cholecalciferol [Vitamin D3 (25 Mcg = 1000 Iu)] 50 mcg PO DAILY 04/14/21 [History] Furosemide [Lasix] 20 mg PO DAILY PRN 04/14/21 [History] Magnesium Chloride [Mag64] 64 mg PO DAILY 04/14/21 [History] Metoprolol Succinate (ER) [Toprol XL] 75 mg PO BID 30 Days #30 tab 04/18/21 [Rx] Follow up Appointment(s)/Referral(s): Rocco You MD [STAFF PHYSICIAN] - 1 Week Arian Forrest MD [Primary Care Provider] - 1-2 days Activity/Diet/Wound Care/Special Instructions: Activity: As tolerated. Take breaks as needed. Rise from lying to sitting and sitting to standing slowly. Diet: Heart healthy and carb consistent diet. Avoid salts, or foods with hidden salts such as canned or boxed foods and frozen dinners. Extra salt makes your heart work harder and traps the fluid in your body for longer. Special Instructions: Take all of your medications as directed and remember to keep all of your doctor's appointments and follow-up as needed. It is strongly encouraged for you to wear your LifeVest as previously discussed and to continue with your current daily cardiac medication regimen. Thank you for allowing us to participate in your care, it was truly a pleasure having you for our patient!!!
[2021-05-03 14:22] VITALS: BP 169/90; PULSE 100; RESP 18; TEMP 97.6
--- NOTE | 2021-05-03 16:22 | P.EPCON ---
Electrophysiology Consult - EP Consult Electrophysiology Consult: Patient was admitted with yet another episode of syncope She was sitting at night when she suddenly passed out this was between 1 and 2 AM in the morning This Medtronic device was interrogated ICD has been turned off RV pacing has been turned off university demonstrator for fracture She paces in the atrium and in the LV LV impedances are about 1600, threshold was mildly elevated No arrhythmias were documented on telemetry No arrhythmias were documented on the LifeVest She has mild nonischemic cardio myopathy ejection fraction is improved to about 45-50% The device was interrogated No arrhythmias are noted The LV lead amplitude and pulse width was maximized Auto capture for the LV lead was thought to be the most likely cause since she has underlying complete heart block Auto capture was turned off I discussed this with the patient and with her sister and family I will implant a right-sided lead This is lead to be tunneled across to the left side Past Medtronic to get be the longer leads, single coil ICD leads She will receive IV vancomycin preoperatively Hibiclens bath for 10 days prior to the procedure I will schedule the procedure for
== END 2021-05-03 15:15 | disposition home health service (06) ==
LOC: EC 02:44 → 6NMEDSUR 08:14
PROVIDERS: ADMIT Internal Medicine; ATTEND Internal Medicine
DX: R55 Syncope and collapse (principal); D72.829 Elevated white blood cell count, unspecified; I42.8 Other cardiomyopathies; I11.0 Hypertensive heart disease with heart failure; I50.9 Heart failure, unspecified; E78.5 Hyperlipidemia, unspecified; I48.0 Paroxysmal atrial fibrillation; J44.9 Chronic obstructive pulmonary disease, unspecified; I25.10 Atherosclerotic heart disease of native coronary artery without angina pectoris; K21.9 Gastro-esophageal reflux disease without esophagitis; M77.9 Enthesopathy, unspecified; M19.90 Unspecified osteoarthritis, unspecified site; Z79.01 Long term (current) use of anticoagulants; Z79.82 Long term (current) use of aspirin; Z79.899 Other long term (current) drug therapy; Z88.0 Allergy status to penicillin; Z88.7 Allergy status to serum and vaccine; Z88.1 Allergy status to other antibiotic agents; Z88.8 Allergy status to other drugs, medicaments and biological substances; Z71.3 Dietary counseling and surveillance; Z92.3 Personal history of irradiation; Z87.01 Personal history of pneumonia (recurrent); Z87.891 Personal history of nicotine dependence; Z92.21 Personal history of antineoplastic chemotherapy; Z95.810 Presence of automatic (implantable) cardiac defibrillator; Z85.118 Personal history of other malignant neoplasm of bronchus and lung; Z80.0 Family history of malignant neoplasm of digestive organs; Z82.3 Family history of stroke; Z82.49 Family history of ischemic heart disease and other diseases of the circulatory system
CPT/HCPCS: 99285; 36415; 94640 ×4; 93005; 83880; 80053; 83735; 85025; 85610; 85730; 71046; G0378 ×2

== ENCOUNTER 2021-05-14 09:13 | Observation (INO) | payer MEDICARE, BC ==
[2021-05-09 13:08] VITALS: BMI 45.1
[~2021-05-14 09:13] MED LIST changes: +CLINDAMYCIN 600 MG in SODIUM CHLORIDE 0.9% 250 ML IRRIGATION PRN; +CLINDAMYCIN 900 MG in DEXTROSE 5% IN WATER 50 ML IVPB PRN; +VANCOMYCIN 2,000 MG in SODIUM CHLORIDE 0.9% 500 ML 500 ML IVPB ONE; +VANCOMYCIN IV PER PHARMACY 1 EACH MISC MISCELLANE PRN
[2021-05-14] MEDS ORDERED: LIDOCAINE 1% INJ 10MG/ML (20 ML MDV) ONE ×3 (09:35→10:19)
[2021-05-14] MEDS ORDERED: SUCCINYLCHOLINE CHLORIDE 100 MG/5 ML SYR IV ONE (10:19)
[2021-05-14] MEDS ORDERED: ROCURONIUM 10 MG/ML (5 ML VIAL) IV ONE (10:19)
[2021-05-14] MEDS ORDERED: NEOSTIGMINE 1 MG/ML 10 ML VIAL ONE (10:19)
[2021-05-14] MEDS ORDERED: MIDAZOLAM 2 MG/2 ML VIAL ONE (10:19)
[2021-05-14] MEDS ORDERED: PHENYLEPHRINE-0.9% NACL SYG 1,000 MCG/10 ML SYRINGE ONE (10:19)
[2021-05-14] MEDS ORDERED: GLYCOPYRROLATE 0.2 MG/ML 2 ML VIAL ONE (10:19)
[2021-05-14] MEDS ORDERED: fentaNYL (PF) 50 MCG/ML 2 ML AMP ONE (10:19)
[2021-05-14] MEDS ORDERED: PROPOFOL 10 MG/ML 20 ML VIAL IV ONE (10:19)
[2021-05-14] MEDS ORDERED: IV FLUID CONTINUATION 500 ML IV ONE (10:32)
[2021-05-14] MEDS ORDERED: IOPAMIDOL-370 50ML BTL INJ ONE (10:43)
[2021-05-14] MEDS ORDERED: LIDOCAINE 1% INJ 10MG/ML (20 ML MDV) SQ ONE ×2 (11:28→11:56)
[2021-05-14] MEDS ORDERED: LACTATED RINGERS 1,000 ML IV ONE (12:07)
--- NOTE | 2021-05-14 14:06 | P.EPPROC ---
- EP Procedure Note Electrophysiology Procedure Note: Diagnosis Left-sided ICD lead has complete non-capture with high impedances, nonfunctioning lead Patient has a Bi V ICD in the left side LV thresholds the elevated atrial lead function is normal Occluded left subclavian ICD lead implant from the right side Tunneling of this lead to the left side Extended duration procedure on account of patient's body habitus and cardio myopathy with heart failure Procedure Patient was brought to the EP lab in a fasting state. IV vancomycin was admin istered General anesthesia provided The entire chest was prepped 2 incisions were made one in the left pectoral and the other and right pectoral area The left-sided ICD was programmed to DOO mode, atrial and LV pacing only Incision was made. The left pectoral area exactly where the previous surgical site and carried down to the level of the generator The generator was explanted ICD lead was interrogated once again in the impedance was very high greater than 4000 This lead was cut And secured to the underlying muscle Incision was made in the right pectoral area Carried down to the level of muscle Access obtained in the right axillary vein Sheath placed in the central circulation and a 72 cm extra long single coil Medtronics ICD lead which was brought in on special order, implanted Model #[id number], 72 cm in length and TDL [id number] It took multiple attempts to cross the tricuspid valve on account of the presence of the atrial lead and the CS lead in the right atrium. Both leads were carefully avoided The new 72 cm ICD lead was implanted. The RV septum after multiple attempts, specifically avoid the RV apex which housed the old ICD lead Excellent pacing threshold 0.75 V at 0.4 ms pacing impedance of 589 ohms obtained. Good current of injury to since LV pacing Thereafter this lead was secured to the pectoralis muscle A tunneling tool was used to create the track Subsequently a hemodialysis catheter was used close to cross over to the left side This lead was secured once again within extra sleeve to the right side pectoral muscle and the lead was completely secure The other end was then connected to the new by ventricle ICD generator since this was a day for lead The atrial and LV leads, both chronic leads were also connected to this new generator Medtronic model [id number], serial [id number] Both wounds and closed and hemostasis was assured Plan IV antibiotics and continue cardiac medications
--- NOTE | 2021-05-14 14:08 | P.PRLE ---
RE: Radha Marin Dear Ronnie Radha has a fractured ICD lead She also has a completely occluded left subclavian vein Right-sided ICD lead was implanted and then tunneled under the skin to the left side She has a new biventricular ICD generator and has underlying complete heart block The atrial and LV leads, chronically placed a functioning normally Her cardiac medications will remain unchanged. I will hold ELIQUIS for 2-3 days postprocedure Thank you for entrusting me with the care of the patient Warm regards Sincerely Rocco You
--- NOTE | 2021-05-14 14:09 | P.EPPROC ---
- EP Procedure Note Electrophysiology Procedure Note: Right upper extremity venogram TCC IV dye injected in the right arm Mild stenosis of the right subclavian vein but patent enough to accommodate a lead Plan Proceed with implantation of a right-sided ICD lead
[2021-05-14] MEDS ORDERED: FUROSEMIDE 20 MG TAB PO PRN (14:11)
[2021-05-14] MEDS ORDERED: ALPRAZolam 0.25 MG TAB PO PRN (14:11)
[2021-05-14] MEDS ORDERED: IPRATROPIUM-ALBUTEROL 3 ML NEB INHALATION PRN (14:11)
[2021-05-14] MEDS ORDERED: ACETAMINOPHEN TAB 325 MG TAB PO PRN (14:14)
[2021-05-14] MEDS: ACETAMINOPHEN IV (For NPO) 1,000 MG in EMPTY BAG 1 BAG IVPB ONE ×2 (15:02→15:13)
[2021-05-14 15:12] VITALS: RESP 18
[2021-05-14] MEDS: CLINDAMYCIN 900 MG in DEXTROSE 5% IN WATER 50 ML IVPB SCH ×4 (17:15→22:44)
[2021-05-14] MEDS: HYDROmorphone 0.5 MG/0.5 ML SYRINGE IVP PRN ×2 (17:15→22:42)
[2021-05-14] MEDS ORDERED: FAMOTIDINE 20 MG TAB PO SCH (17:30)
[2021-05-14] MEDS: METOPROLOL SUCCINATE (ER) 25 MG TAB.ER.24H PO SCH (21:16)
[2021-05-15] MEDS: CLINDAMYCIN 900 MG in DEXTROSE 5% IN WATER 50 ML IVPB SCH ×2 (04:42)
--- NOTE | 2021-05-15 07:05 | XR ---
EXAMINATION TYPE: XR chest 2V DATE OF EXAM: 05/15/2021 COMPARISON: Chest x-ray May 02, 2021 HISTORY: Lead placement. Pacemaker insertion. TECHNIQUE: Frontal and lateral views of the chest are obtained. FINDINGS: Multi lead pacemaker/defibrillator is redemonstrated with new fourth lead terminating abov e prior defibrillator lead likely within the right ventricle. Lungs remain clear without pneumothorax . Chronic parenchymal changes redemonstrated along with cardiomegaly. Small to tiny bilateral pleural effusions seen on lateral view. Osseous structures are intact. IMPRESSION: As above.
[2021-05-15] MEDS ORDERED: FUROSEMIDE 40 MG TAB PO STA (07:42)
[2021-05-15 08:40] VITALS: BP 114/63; PULSE 76; TEMP 98.1
[2021-05-15] MEDS: HYDROmorphone 0.5 MG/0.5 ML SYRINGE IVP PRN (08:41)
[2021-05-15] MEDS: METOPROLOL SUCCINATE (ER) 25 MG TAB.ER.24H PO SCH (08:43)
[2021-05-15] MEDS ORDERED: SPIRONOLACTONE 25 MG TAB PO SCH (09:00)
[2021-05-15] MEDS ORDERED: ASPIRIN 81 MG PO SCH (09:00)
--- NOTE | 2021-05-15 15:52 | P.DS ---
Providers Date of admission: 05/15/21 11:58 Attending physician: Rocco You Primary care physician: Arian Forrest MD Hospital Course: Patient is doing well from a cardiac standpoint Her chest discomfort is a lot better chest tenderness is also improved since yesterday She is sitting up in a chair comfortable vitals are stable Blood pressure 140/63 mmHg pulse rate in the 70s afebrile Heart sounds S1 and S2 are normal Breath sounds are clear Device implant sites are healing well Impression Successful ICD lead placement from the right subclavian vein Successful tunneling of the sleep to the left side Explantation of old generator and implantation of a new biventricular ICD generator LV lead and atrial lead functioning normally Plan Discharge home line oral antibiotics for 24 hours Continue cardiac medications Follow-up in the device clinic in one week Plan - Discharge Summary Discharge Rx Participant: Yes New Discharge Prescriptions: No Action RX: Spironolactone [Aldactone] 25 mg PO DAILY #30 tab RX: Ipratropium-Albuterol Nebulize [Duoneb 0.5 mg-3 mg/3 ml Soln] 3 ml INHALATION RT-QID PRN PRN Reason: Shortness Of Breath RX: Glycopyrrolate/Formoterol Fum [Bevespi Aerosphere Inhaler] 2 puff INHALATION RT-BID RX: Acetaminophen [Tylenol] 650 mg PO Q6H PRN PRN Reason: Fever And/ Or Pain RX: Metoprolol Succinate (ER) [Toprol XL] 75 mg PO BID 30 Days #30 tab RX: Apixaban [Eliquis] 5 mg PO BID RX: Famotidine 40 mg PO AC-SUPPER RX: ALPRAZolam [Xanax] 0.25 mg PO HS PRN PRN Reason: Insomnia/Anxiety RX: Aspirin EC [Ecotrin Low Dose] 81 mg PO DAILY RX: Cholecalciferol [Vitamin D3 (25 Mcg = 1000 Iu)] 50 mcg PO DAILY RX: Furosemide [Lasix] 20 mg PO DAILY PRN PRN Reason: swelling RX: Magnesium Chloride [Mag64] 64 mg PO DAILY Discharge Medication List RX: Spironolactone [Aldactone] 25 mg PO DAILY #30 tab 01/12/20 [Rx] RX: Apixaban [Eliquis] 5 mg PO BID 11/21/20 [History] RX: Glycopyrrolate/Formoterol Fum [Bevespi Aerosphere Inhaler] 2 puff INHALATION RT-BID 11/21/20 [History] RX: Ipratropium-Albuterol Nebulize [Duoneb 0.5 mg-3 mg/3 ml Soln] 3 ml INHALATION RT-QID PRN 11/21/20 [History] RX: Famotidine 40 mg PO AC-SUPPER 11/30/20 [History] RX: ALPRAZolam [Xanax] 0.25 mg PO HS PRN 01/19/21 [History] RX: Acetaminophen [Tylenol] 650 mg PO Q6H PRN 04/14/21 [History] RX: Aspirin EC [Ecotrin Low Dose] 81 mg PO DAILY 04/14/21 [History] RX: Cholecalciferol [Vitamin D3 (25 Mcg = 1000 Iu)] 50 mcg PO DAILY 04/14/21 [History] RX: Furosemide [Lasix] 20 mg PO DAILY PRN 04/14/21 [History] RX: Magnesium Chloride [Mag64] 64 mg PO DAILY 04/14/21 [History] RX: Metoprolol Succinate (ER) [Toprol XL] 75 mg PO BID 30 Days #30 tab 04/18/21 [Rx] Follow up Appointment(s)/Referral(s): Rocco You MD [STAFF PHYSICIAN] - 1 Week (Office will call patient with office appointment and device clinic appointment ) Patient Instructions/Handouts: Pacemaker (GEN) Discharge Disposition: HOME SELF-CARE
== END 2021-05-15 15:14 | disposition home or self-care (01) ==
LOC: CATHEP 09:13 → 6NMEDSUR 13:56 → CATHEP 05-15 11:58 → 6NMEDSUR 05-15 11:58
PROVIDERS: ADMIT Internal Medicine Clinical Cardiac Electrophysiology; ATTEND Internal Medicine Clinical Cardiac Electrophysiology
DX: T82.110A Breakdown (mechanical) of cardiac electrode, initial encounter (principal); I25.5 Ischemic cardiomyopathy; I11.0 Hypertensive heart disease with heart failure; I50.9 Heart failure, unspecified; E78.5 Hyperlipidemia, unspecified; I25.10 Atherosclerotic heart disease of native coronary artery without angina pectoris; I82.B22 Chronic embolism and thrombosis of left subclavian vein; Z20.822 Contact with and (suspected) exposure to COVID-19; Z79.01 Long term (current) use of anticoagulants; Z79.82 Long term (current) use of aspirin; Z79.899 Other long term (current) drug therapy; Z88.0 Allergy status to penicillin; Z88.1 Allergy status to other antibiotic agents; Z88.7 Allergy status to serum and vaccine; Z88.8 Allergy status to other drugs, medicaments and biological substances; Z95.0 Presence of cardiac pacemaker; Z87.891 Personal history of nicotine dependence
CPT/HCPCS: 33225; 33264; 87635; 71046; G0378; C1769 ×3; C1750; C1882; C1892; C1895; J2250; J3370; J2710; J2001; J3010; J0131; J2370; J0330; J2704; J1170 ×2; Q9967

== ENCOUNTER 2021-06-07 06:34 | Emergency (ER) | payer MEDICARE, BC ==
[2021-06-07] MEDS ORDERED: DIAZEPAM 5 MG/ML 2 ML INJ IVP STA (07:01)
[2021-06-07 08:09] LABS: Basophils # (A) 0.1 k/uL (0-0.2); Basophils % (A) 1 %; Eosinophils # (A) 0.3 k/uL (0-0.7); Eosinophils % (A) 4 %; HCT 33.2 % (34.0-46.0); HGB 10.2 gm/dL (11.4-16.0); Hypochromasia Slight; Lymphocytes # (A) 0.8 k/uL (1.0-4.8); Lymphocytes % (A) 10 %; MCH 30.4 pg (25.0-35.0); MCHC 30.6 g/dL (31.0-37.0); MCV 99.2 fL (80.0-100.0); Mean Platelet Volume 7.5; Monocytes # (A) 0.4 k/uL (0-1.0); Monocytes % (A) 5 %; Neutrophils # (A) 6.2 k/uL (1.3-7.7); Neutrophils % (A) 79 %; Platelet Count 370 k/uL (150-450); RBC 3.35 m/uL (3.80-5.40); RDW 14.4 % (11.5-15.5); WBC 7.8 k/uL (3.8-10.6)
[2021-06-07 08:27] LABS: Albumin 3.5 g/dL (3.5-5.0); Magnesium 2.1 mg/dL (1.6-2.3); Potassium 4.8 mmol/L (3.5-5.1); Total Bilirubin 0.4 mg/dL (0.2-1.3); Total Protein 7.3 g/dL (6.3-8.2)
--- NOTE | 2021-06-07 09:22 | ED ---
Extremity Problem HPI - General Chief complaint: Extremity Problem,Nontraumatic Stated complaint: muscle cramping legs Time Seen by Provider: 06/07/21 06:46 Source: patient, EMS, RN notes reviewed Mode of arrival: EMS Limitations: no limitations - History of Present Illness Initial comments: This a 71-year-old female presents emergency Department chief complaint of leg cramps. Patient states she's been having cramping type pain of her leg states bilaterally. Patient states started overnight. Patient states that she's had some issues like this in the past patient has a chest pain shortness breath. Patient denies any fevers chills no trauma no new medications. Patient does admit that she is on Lasix. - Related Data Home Medications Medication Instructions Recorded Confirmed Apixaban [Eliquis] 5 mg PO DIRECTED 11/21/20 05/28/21 Glycopyrrolate/Formoterol Fum 2 puff INHALATION RT-BID 11/21/20 05/28/21 [Bevespi Aerosphere Inhaler] Ipratropium-Albuterol Nebulize 3 ml INHALATION RT-QID PRN 11/21/20 05/28/21 [Duoneb 0.5 mg-3 mg/3 ml Soln] Famotidine 40 mg PO AC-SUPPER 11/30/20 05/28/21 ALPRAZolam [Xanax] 0.125 mg PO HS PRN 01/19/21 05/28/21 Acetaminophen [Tylenol] 650 mg PO Q6H PRN 04/14/21 05/28/21 Aspirin EC [Ecotrin Low Dose] 81 mg PO DAILY 04/14/21 05/28/21 Cholecalciferol [Vitamin D3 (25 50 mcg PO DAILY 04/14/21 05/28/21 Mcg = 1000 Iu)] Furosemide [Lasix] 20 mg PO DAILY PRN 04/14/21 05/28/21 Magnesium Chloride [Mag64] 64 mg PO DAILY 04/14/21 05/28/21 Previous Rx's Medication Instructions Recorded Spironolactone [Aldactone] 25 mg PO DAILY #30 tab 01/12/20 Metoprolol Succinate (ER) [Toprol 75 mg PO BID 30 Days #30 tab 04/18/21 XL] Doxycycline [Vibramycin] 100 mg PO BID 7 Days #17 capsule 04/07/22 diazePAM [Valium] 2 mg PO TID PRN 3 Days #9 tab 06/07/21 Allergies Allergy/AdvReac Type Severity Reaction Status Date / Time losartan [Losartan] Allergy Severe Rash/Hives Verified 06/07/21 06:37 Penicillins Allergy Severe Rash/Hives Verified 06/07/21 06:37 cortisone [Cortisone] AdvReac Severe flushed Verified 06/07/21 06:37 skin, depression Tetanus Vaccines and Toxoid AdvReac Severe huge Verified 06/07/21 06:37 [Tetanus Vaccines & Toxoid] localized swelling Review of Systems ROS Statement: Those systems with pertinent positive or pertinent negative responses have been documented in the HPI. ROS Other: All systems not noted in ROS Statement are negative. Past Medical History Past Medical History: Cancer, Heart Failure, COPD, Hypertension, Osteoarthritis (OA), Pneumonia, Syncope Additional Past Medical History / Comment(s): hx. small cell lung carcinoma rt upper lung-completed chemo and radiation. uses oxygen @HS @times, Other hx: Nonischemic cardiomyopathy, chronic CHF, CHB with BiV AICD, bronchitis, ar thritis in fingers/bilateral knees/toes/lumbar spine, tendonitis R ankle, varicosities, see Dr You [facility], adm. in 2021 w/syncope relating to defib per pt. History of Any Multi-Drug Resistant Organisms: None Reported Past Surgical History: AICD, Heart Catheterization, Pacemaker Additional Past Surgical History / Comment(s): 2013 BiV AICD/generator change 2013 cardiac cath, BIV ICD Generator change with LV lead insertion Past Anesthesia/Blood Transfusion Reactions: No Reported Reaction, Family History of Problems w/ Anesthesia Additional Past Anesthesia/Blood Transfusion Reaction / Comment(s): Pt has never had general or spinal anesthesia, sister gets PONV Type of Cardiac Device: Biventricular Pacemaker, AICD Device Placement Date:: 2013 Past Psychological History: No Psychological Hx Reported Smoking Status: Former smoker Past Alcohol Use History: None Reported Past Drug Use History: None Reported - Past Family History Brother(s) Family Medical History: Cancer Additional Family Medical History / Comment(s): pancreatic cancer Father Family Medical History: CVA/TIA, Hypertension Additional Family Medical History / Comment(s): third degree block, stroke Mother Family Medical History: Hypertension General Exam Limitations: no limitations General appearance: alert, in no apparent distress Head exam: Present: atraumatic, normocephalic, normal inspection Eye exam: Present: normal appearance, PERRL, EOMI. Absent: scleral icterus, conjunctival injection, periorbital swelling ENT exam: Present: normal exam, mucous membranes moist Neck exam: Present: normal inspection, full ROM. Absent: tenderness, meningismus, lymphadenopathy Respiratory exam: Present: normal lung sounds bilaterally. Absent: respiratory distress, wheezes, rales, rhonchi, stridor Cardiovascular Exam: Present: regular rate, normal rhythm, normal heart sounds. Absent: systolic murmur, diastolic murmur, rubs, gallop, clicks Extremities exam: Present: other (Mild lower extremity swelling noted, no severe erythema pulses equal bilaterally) Neurological exam: Present: alert Course Vital Signs 06/07/21 06:37 Temperature 98.3 F Pulse Rate 87 Respiratory 16 Rate Blood Pressure 143/80 O2 Sat by Pulse 95 Oximetry Medical Decision Making - Medical Decision Making Labs were for no significant findings. Symptoms are improved after small dose of Valium. Patient we discharged in stable condition she is advised to elevate her legs were compression stockings. - Lab Data Result diagrams: 06/07/21 07:53 06/07/21 07:53 Lab Results 06/07/21 06/07/21 Range/Units 07:53 07:53 WBC 7.8 (3.8-10.6) k/uL RBC 3.35 L (3.80-5.40) m/uL Hgb 10.2 L (11.4-16.0) gm/dL Hct 33.2 L (34.0-46.0) % MCV 99.2 (80.0-100.0) fL MCH 30.4 (25.0-35.0) pg MCHC 30.6 L (31.0-37.0) g/dL RDW 14.4 (11.5-15.5) % Plt Count 370 (150-450) k/uL MPV 7.5 Neutrophils % 79 % Lymphocytes % 10 % Monocytes % 5 % Eosinophils % 4 % Basophils % 1 % Neutrophils # 6.2 (1.3-7.7) k/uL Lymphocytes # 0.8 L (1.0-4.8) k/uL Monocytes # 0.4 (0-1.0) k/uL Eosinophils # 0.3 (0-0.7) k/uL Basophils # 0.1 (0-0.2) k/uL Hypochromasia Slight Sodium 135 L (137-145) mmol/L Potassium 4.8 (3.5-5.1) mmol/L Chloride 104 (98-107) mmol/L Carbon Dioxide 22 (22-30) mmol/L Anion Gap 9 mmol/L BUN 18 H (7-17) mg/dL Creatinine 0.93 (0.52-1.04) mg/dL Est GFR (CKD-EPI)AfAm 71 (>60 ml/min/1.73 sqM) Est GFR (CKD-EPI)NonAf 62 (>60 ml/min/1.73 sqM) Glucose 107 H (74-99) mg/dL Calcium 9.0 (8.4-10.2) mg/dL Magnesium 2.1 (1.6-2.3) mg/dL Total Bilirubin 0.4 (0.2-1.3) mg/dL AST 21 (14-36) U/L ALT 14 (4-34) U/L Alkaline Phosphatase 44 (38-126) U/L Total Protein 7.3 (6.3-8.2) g/dL Albumin 3.5 (3.5-5.0) g/dL Disposition Clinical Impression: Leg cramps, Leg edema Disposition: HOME SELF-CARE Condition: Stable Instructions (If sedation given, give patient instructions): Leg Cramps (ED) Additional Instructions: Please elevate legs and wear compression stockings.Please return to the Emergency Department if symptoms worsen or any other concerns. Prescriptions: diazePAM [Valium] 2 mg PO TID PRN 3 Days #9 tab PRN Reason: muscle spasms Is patient prescribed a controlled substance at d/c from ED?: Yes When asked, does pt state using other controlled substances?: No If prescribed controlled substance>3 days was MAPS reviewed?: Prescribed <3 Days Referrals: Arian Forrest MD [Primary Care Provider] - 1-2 days Time of Disposition: 09:22
[2021-06-07 09:34] VITALS: BP 121/71; PULSE 84; RESP 18; TEMP 98.2
== END 2021-06-07 09:33 | disposition home or self-care (01) ==
LOC: EC 06:34
DX: R25.2 Cramp and spasm (principal); R60.0 Localized edema; I11.0 Hypertensive heart disease with heart failure; I50.9 Heart failure, unspecified; J44.9 Chronic obstructive pulmonary disease, unspecified; M19.90 Unspecified osteoarthritis, unspecified site; Z79.01 Long term (current) use of anticoagulants; Z79.82 Long term (current) use of aspirin; Z79.51 Long term (current) use of inhaled steroids; Z79.899 Other long term (current) drug therapy; Z87.891 Personal history of nicotine dependence
CPT/HCPCS: 36415; 80053; 83735; 85025; 99283; 96374; J3360

== ENCOUNTER 2021-06-11 17:09 | Day surgery (SDC) | payer MEDICARE, BC ==
[2021-06-08 13:53] VITALS: BMI 45.1
[~2021-06-11 17:09] MED LIST changes: -CLINDAMYCIN 600 MG in SODIUM CHLORIDE 0.9% 250 ML IRRIGATION PRN; +CLINDAMYCIN 600 MG in SODIUM CHLORIDE 0.9% IRRIG BTL 250 ML IRRIGATION ONE; -CLINDAMYCIN 900 MG in DEXTROSE 5% IN WATER 50 ML IVPB PRN; +CLINDAMYCIN 900 MG in DEXTROSE 5% IN WATER 50 ML IVPB STA; -SODIUM CHLORIDE 0.9% 1,000 ML IV SCH; +SODIUM CHLORIDE 0.9% 1,000 ML in EMPTY BAG 1 BAG IV ONE; -VANCOMYCIN 2,000 MG in SODIUM CHLORIDE 0.9% 500 ML 500 ML IVPB ONE; -VANCOMYCIN IV PER PHARMACY 1 EACH MISC MISCELLANE PRN
[2021-06-11] MEDS ORDERED: SODIUM CHLORIDE 0.9% 500 ML 500 ML IV ONE (17:15)
[2021-06-11 17:42] VITALS: BP 142/72; PULSE 70; RESP 16; TEMP 98.1
[2021-06-11] MEDS ORDERED: LIDOCAINE 1% INJ 10MG/ML (20 ML MDV) ONE (18:55)
[2021-06-11] MEDS ORDERED: LIDOCAINE 1% INJ 10MG/ML (20 ML MDV) SQ ONE (19:03)
[2021-06-11] MEDS ORDERED: ACETAMINOPHEN TAB 325 MG TAB PO STA (19:40)
--- NOTE | 2021-06-11 19:48 | P.PCN ---
Preoperative Diagnosis: Superficial wound infection Procedure The lateral aspect of the right pectoral incision had a scab This Was carefully removed The edges of the skin excised Some loose retained sutures were noted and these were cut The edges of the wound was scraped The dehiscence of the wound was superficial The deep layers were intact Wound debridement was performed along the edges Then an 9 Suture was used To loose stitches were applied An antibiotic disc was applied over this for local therapy IV clindamycin was given By mouth Levaquin thereafter Reevaluation in a week
== END 2021-06-11 20:06 | disposition home or self-care (01) ==
LOC: CATHEP 17:09
PROVIDERS: ATTEND Internal Medicine Clinical Cardiac Electrophysiology
DX: T81.49XA Infection following a procedure, other surgical site, initial encounter (principal)
CPT/HCPCS: 97597; 33222; J2001

== ENCOUNTER 2021-06-21 10:07 | Day surgery (SDC) | payer MEDICARE, BC ==
[2021-06-19 10:20] VITALS: BMI 45.1
[2021-06-21 10:36] VITALS: RESP 18; TEMP 98
[2021-06-21] MEDS ORDERED: SODIUM CHLORIDE 0.9% 500 ML 500 ML IV ONE (10:41)
[2021-06-21] MEDS ORDERED: fentaNYL (PF) 50 MCG/ML 2 ML AMP IVP ONE (12:49)
[2021-06-21] MEDS: LIDOCAINE 1% INJ 10MG/ML (30 ML VIAL-PF) SQ ONE ×2 (12:49→12:55)
[2021-06-21] MEDS ORDERED: MIDAZOLAM 2 MG/2 ML VIAL IVP ONE (12:53)
[2021-06-21] MEDS ORDERED: LEVOFLOXACIN 500 MG TAB PO STA (13:19)
[2021-06-21 14:12] VITALS: PULSE 96
[2021-06-21 14:44] VITALS: BP 132/64
--- NOTE | 2021-06-21 17:51 | P.PCN ---
Preoperative Diagnosis: Patient was brought to the Jointer Operator Old dressing was removed The area was prepped and draped per protocol Cleaned with chlorhexidine The old sutures removed The wound was cleaned Edges were excised The incision was extended for about a centimeter laterally The edges were freshened Once again after cleaning the wound 3 sutures, nylon were applied to approximate the skin An antibiotic disc was applied over this and the wound was dressed Plan Antibiotics for 5 days I will see her again next Friday for wound inspection
== END 2021-06-21 14:44 | disposition home or self-care (01) ==
LOC: CATHEP 10:07
PROVIDERS: ATTEND Internal Medicine Clinical Cardiac Electrophysiology
DX: T81.31XA Disruption of external operation (surgical) wound, not elsewhere classified, initial encounter (principal); I10 Essential (primary) hypertension; E78.5 Hyperlipidemia, unspecified; F17.210 Nicotine dependence, cigarettes, uncomplicated; Z20.822 Contact with and (suspected) exposure to COVID-19; Z79.82 Long term (current) use of aspirin; Z79.899 Other long term (current) drug therapy; Z79.01 Long term (current) use of anticoagulants; Z88.1 Allergy status to other antibiotic agents; Z88.0 Allergy status to penicillin; Z88.7 Allergy status to serum and vaccine; Z88.8 Allergy status to other drugs, medicaments and biological substances
CPT/HCPCS: 17999; 87635; J2250; J2001; J3010; 33222

== ENCOUNTER 2021-07-05 09:40 | Day surgery (SDC) | payer MEDICARE, BC ==
[2021-07-04 09:38] VITALS: BMI 45.2
[2021-07-05] MEDS ORDERED: SODIUM CHLORIDE 0.9% 500 ML 500 ML IV ONE (09:51)
--- NOTE | 2021-07-05 12:22 | P.PCN ---
Preoperative Diagnosis: Patient came to the EP lab Dressing removed Wound is healing well Looks completely sealed No cellulitis Sutures removed Skin cleaned with chlorhexidine Steri-Strips applied On the left side there was a suture that is coming out of the skin This was blocked off easily during cleaning with chlorhexidine Site was dressed with Steri-Strips No cellulitis no discharge Plan keep wound dry for 5 days
[2021-07-05 13:55] VITALS: RESP 16
== END 2021-07-05 10:47 | disposition home or self-care (01) ==
LOC: CATHEP 09:40
PROVIDERS: ATTEND Internal Medicine Clinical Cardiac Electrophysiology
DX: T81.41XA Infection following a procedure, superficial incisional surgical site, initial encounter (principal); T81.30XA Disruption of wound, unspecified, initial encounter; I10 Essential (primary) hypertension; E78.5 Hyperlipidemia, unspecified; F17.210 Nicotine dependence, cigarettes, uncomplicated; Z88.1 Allergy status to other antibiotic agents; Z88.0 Allergy status to penicillin; Z88.7 Allergy status to serum and vaccine; Z88.8 Allergy status to other drugs, medicaments and biological substances; Z79.82 Long term (current) use of aspirin; Z79.01 Long term (current) use of anticoagulants; Z79.899 Other long term (current) drug therapy
CPT/HCPCS: 17999

== ENCOUNTER 2021-09-12 06:33 | Emergency (ER) | payer MEDICARE, BC ==
[2021-09-12 06:40] VITALS: RESP 20; TEMP 97.4
[2021-09-12] MEDS ORDERED: methylPREDNISolone SOD SUCCI 125 MG/2 ML VIAL IV STA (06:58)
[2021-09-12 07:10] LABS: Basophils # (A) 0.1 k/uL (0-0.2); Basophils % (A) 1 %; Eosinophils # (A) 0.2 k/uL (0-0.7); Eosinophils % (A) 2 %; HCT 43.9 % (34.0-46.0); HGB 13.5 gm/dL (11.4-16.0); Hypochromasia Slight; Lymphocytes # (A) 1.8 k/uL (1.0-4.8); Lymphocytes % (A) 16 %; MCH 28.8 pg (25.0-35.0); MCHC 30.7 g/dL (31.0-37.0); MCV 93.9 fL (80.0-100.0); Mean Platelet Volume 7.4; Monocytes # (A) 0.5 k/uL (0-1.0); Monocytes % (A) 5 %; Neutrophils # (A) 8.1 k/uL (1.3-7.7); Neutrophils % (A) 76 %; Platelet Count 309 k/uL (150-450); RBC 4.67 m/uL (3.80-5.40); RDW 15.7 % (11.5-15.5); WBC 10.7 k/uL (3.8-10.6)
--- NOTE | 2021-09-12 07:10 | ED ---
SOB HPI - General Chief Complaint: Shortness of Breath Stated Complaint: Shortness of Breath Time Seen by Provider: 09/12/21 06:42 Source: patient, EMS, RN notes reviewed Mode of arrival: EMS Limitations: no limitations - History of Present Illness Initial Comments: This is a 71-year-old female who presents to the emergency department for difficulty breathing. Patient states that she was sitting in bed this morning when she suddenly became short of breath. Also had associated chest tightness. She was given DuoNeb by EMS and reports significant relief in her symptoms. She has had similar symptoms in the past, and states that when she coughs up m ultiple mucous plugs, she ends up feeling better. She does have a history of small cell lung cancer and was last treated with chemo and radiation in February 2020 and she is now in remission. She is on 2L of oxygen at home, which she primarily uses at night. Denies any fevers, chills, sore throat, chest pain, palpitations, abdominal pain, nausea, vomiting, diarrhea, back pain, or headaches. MD Complaint: shortness of breath, cough Known History Of: COPD, congestive heart failure - Related Data Home Medications Medication Instructions Recorded Confirmed Apixaban [Eliquis] 5 mg PO BID 11/21/20 07/04/21 Glycopyrrolate/Formoterol Fum 2 puff INHALATION RT-BID 11/21/20 07/04/21 [Bevespi Aerosphere Inhaler] Ipratropium-Albuterol Nebulize 3 ml INHALATION RT-QID PRN 11/21/20 07/04/21 [Duoneb 0.5 mg-3 mg/3 ml Soln] Famotidine 40 mg PO AC-SUPPER 11/30/20 07/04/21 ALPRAZolam [Xanax] 0.125 mg PO HS PRN 01/19/21 07/04/21 Acetaminophen [Tylenol] 650 mg PO Q6H PRN 04/14/21 07/04/21 Aspirin EC [Ecotrin Low Dose] 81 mg PO DAILY 04/14/21 07/04/21 Cholecalciferol [Vitamin D3 (25 50 mcg PO DAILY 04/14/21 07/04/21 Mcg = 1000 Iu)] Furosemide [Lasix] 20 mg PO DAILY PRN 04/14/21 07/04/21 Magnesium Chloride [Mag64] 64 mg PO DAILY 04/14/21 07/04/21 Metoprolol Succinate (ER) [Toprol 50 mg PO BID 06/19/21 07/04/21 XL] Previous Rx's Medication Instructions Recorded Spironolactone [Aldactone] 25 mg PO DAILY #30 tab 01/12/20 Doxycycline [Vibramycin] 100 mg PO BID 5 Days #10 capsule 09/12/21 cefUROXime axetiL [Ceftin] 500 mg PO BID 5 Days #10 tab 09/12/21 methylPREDNISolone Dose Pack 4 mg PO DIRECTED #1 packet 09/12/21 [Medrol Dose Pack] Allergies Allergy/AdvReac Type Severity Reaction Status Date / Time losartan [Losartan] Allergy Severe Rash/Hives Verified 07/04/21 09:30 Penicillins Allergy Severe Rash/Hives Verified 07/04/21 09:30 cortisone [Cortisone] AdvReac Severe flushed Verified 07/04/21 09:30 skin, depression Tetanus Vaccines and Toxoid AdvReac Severe huge Verified 07/04/21 09:30 [Tetanus Vaccines & Toxoid] localized swelling Review of Systems ROS Statement: Those systems with pertinent positive or pertinent negative responses have been documented in the HPI. ROS Other: All systems not noted in ROS Statement are negative. Past Medical History Past Medical History: Cancer, Heart Failure, COPD, Hypertension, Osteoarthritis (OA), Pneumonia, Syncope Additional Past Medical History / Comment(s): See Dr You's H&P. Hx small cell lung carcinoma right upper lung-completed chemo and radiation, last radiation 03/16. Uses oxygen @HS @times. Nonischemic cardiomyopathy, chronic CHF, CHB with BiV AICD, bronchitis, tendonitis right ankle, varicosities. 04/17 syncope related to defibrilator per pt. Swelling in legs, legs cramps . History of Any Multi-Drug Resistant Organisms: None Reported Past Surgical History: AICD, Heart Catheterization, Pacemaker Additional Past Surgical History / Comment(s): 2013 Biventricular AICD/generator change 05/14, Biventricular AICD Generator change with LV lead insertion, wound debridement right chest. Past Anesthesia/Blood Transfusion Reactions: No Reported Reaction, Motion Sickness Additional Past Anesthesia/Blood Transfusion Reaction / Comment(s): Sister gets PONV. Type of Cardiac Device: Biventricular Pacemaker, AICD Device Placement Date:: 2013 Past Psychological History: No Psychological Hx Reported Additional Psychological History / Comment(s): Pt resides at home. She has a private hire aide for 6-8 hours a day and her brother spends nights with her. She gets around by walker. She has home oxygen and nebulizer. She no longer drives, her family drives her to [employer]. Smoking Status: Former smoker Past Alcohol Use History: None Reported Additional Past Alcohol Use History / Comment(s): Started smoking in 1964 and quit in 2012. Past Drug Use History: None Reported - Past Family History Brother(s) Family Medical History: Cancer Additional Family Medical History / Comment(s): Pancreatic cancer. Father Family Medical History: CVA/TIA, Hypertension Additional Family Medical History / Comment(s): Third degree block, stroke. Mother Family Medical History: Hypertension General Exam Limitations: no limitations General appearance: alert, in distress Head exam: Present: atraumatic, normocephalic, normal inspection Neck exam: Present: normal inspection. Absent: tenderness, meningismus, lymphadenopathy Respiratory exam: Present: respiratory distress, wheezes, rales, decreased breath sounds Cardiovascular Exam: Present: regular rate, normal rhythm, normal heart sounds. Absent: systolic murmur, diastolic murmur, rubs, gallop, clicks Neurological exam: Present: alert, oriented X3, CN II-XII intact Psychiatric exam: Present: normal affect, normal mood Skin exam: Present: warm, dry, intact, normal color. Absent: rash Course Vital Signs 09/12/21 09/12/21 09/12/21 06:34 08:53 10:20 Temperature 97.4 F L Pulse Rate 67 90 Respiratory 20 20 Rate Blood Pressure 178/88 116/73 O2 Sat by Pulse 95 99 98 Oximetry Medical Decision Making - Medical Decision Making This is a 71-year-old female who presents to the emergency department for shortness of breath. Lab work reveals a mildly elevated white blood cell count and was otherwise nonactionable. Chest x-ray reveals no acute cardiopulmonary process. Her oxygen was turned back down to 2 L, which is what she is on at home. She is satting at 96-98% on 2 L. COVID and influenza were negative. Solu-Medrol and Robitussin administered in the emergency department. Given that her vitals are stable and she is starting to feel better, she is stable for discharge home. The patient was put on a combo course of antibiotics consisting of doxycycline and Ceftin due to her multiple comorbidities. Additional Medrol Dosepak was provided as well. Very strict return parameters discussed and she is advised follow-up with her PCP in the next 1-2 days. Also advised she increased the amount of breathing treatments she is doing at home for the meantime to further treat her symptoms. Return precautions reviewed in depth, the patient is instructed to return to the emergency department with any new, worsening, or concerning symptoms. Patient verbalized understanding. This case was discussed in detail with the attending ED physician. Presentation, findings, and treatment plan discussed in detail as well. - Lab Data Result diagrams: 09/12/21 06:50 09/12/21 06:50 Lab Results 09/12/21 09/12/21 09/12/21 Range/Units 06:50 06:50 06:50 WBC 10.7 H (3.8-10.6) k/uL RBC 4.67 (3.80-5.40) m/uL Hgb 13.5 (11.4-16.0) gm/dL Hct 43.9 (34.0-46.0) % MCV 93.9 (80.0-100.0) fL MCH 28.8 (25.0-35.0) pg MCHC 30.7 L (31.0-37.0) g/dL RDW 15.7 H (11.5-15.5) % Plt Count 309 (150-450) k/uL MPV 7.4 Neutrophils % 76 % Lymphocytes % 16 % Monocytes % 5 % Eosinophils % 2 % Basophils % 1 % Neutrophils # 8.1 H (1.3-7.7) k/uL Lymphocytes # 1.8 (1.0-4.8) k/uL Monocytes # 0.5 (0-1.0) k/uL Eosinophils # 0.2 (0-0.7) k/uL Basophils # 0.1 (0-0.2) k/uL Hypochromasia Slight PT 11.2 (9.0-12.0) sec INR 1.0 (<1.2) APTT 27.2 (22.0-30.0) sec Sodium 133 L (137-145) mmol/L Potassium 4.8 (3.5-5.1) mmol/L Chloride 99 (98-107) mmol/L Carbon Dioxide 20 L (22-30) mmol/L Anion Gap 14 mmol/L BUN 21 H (7-17) mg/dL Creatinine 1.09 H (0.52-1.04) mg/dL Est GFR (CKD-EPI)AfAm 59 (>60 ml/min/1.73 sqM) Est GFR (CKD-EPI)NonAf 51 (>60 ml/min/1.73 sqM) Glucose 254 H (74-99) mg/dL Lactic Ac Sepsis Rflx Plasma Lactic Acid Yousif (0.7-2.0) mmol/L Calcium 8.9 (8.4-10.2) mg/dL Magnesium 2.0 (1.6-2.3) mg/dL Total Bilirubin 0.7 (0.2-1.3) mg/dL AST 31 (14-36) U/L ALT 19 (4-34) U/L Alkaline Phosphatase 39 (38-126) U/L Troponin I (0.000-0.034) ng/mL NT-Pro-B Natriuret Pep pg/mL Total Protein 8.4 H (6.3-8.2) g/dL Albumin 4.5 (3.5-5.0) g/dL Coronavirus (PCR) (Not Detectd) Influenza Type A RNA (Not Detectd) Influenza Type B (PCR) (Not Detectd) 09/12/21 09/12/21 09/12/21 Range/Units 06:50 06:50 06:50 WBC (3.8-10.6) k/uL RBC (3.80-5.40) m/uL Hgb (11.4-16.0) gm/dL Hct (34.0-46.0) % MCV (80.0-100.0) fL MCH (25.0-35.0) pg MCHC (31.0-37.0) g/dL RDW (11.5-15.5) % Plt Count (150-450) k/uL MPV Neutrophils % % Lymphocytes % % Monocytes % % Eosinophils % % Basophils % % Neutrophils # (1.3-7.7) k/uL Lymphocytes # (1.0-4.8) k/uL Monocytes # (0-1.0) k/uL Eosinophils # (0-0.7) k/uL Basophils # (0-0.2) k/uL Hypochromasia PT (9.0-12.0) sec INR (<1.2) APTT (22.0-30.0) sec Sodium (137-145) mmol/L Potassium (3.5-5.1) mmol/L Chloride (98-107) mmol/L Carbon Dioxide (22-30) mmol/L Anion Gap mmol/L BUN (7-17) mg/dL Creatinine (0.52-1.04) mg/dL Est GFR (CKD-EPI)AfAm (>60 ml/min/1.73 sqM) Est GFR (CKD-EPI)NonAf (>60 ml/min/1.73 sqM) Glucose (74-99) mg/dL Lactic Ac Sepsis Rflx Plasma Lactic Acid Yousif 2.7 H* (0.7-2.0) mmol/L Calcium (8.4-10.2) mg/dL Magnesium (1.6-2.3) mg/dL Total Bilirubin (0.2-1.3) mg/dL AST (14-36) U/L ALT (4-34) U/L Alkaline Phosphatase (38-126) U/L Troponin I 0.012 (0.000-0.034) ng/mL NT-Pro-B Natriuret Pep 315 pg/mL Total Protein (6.3-8.2) g/dL Albumin (3.5-5.0) g/dL Coronavirus (PCR) (Not Detectd) Influenza Type A RNA (Not Detectd) Influenza Type B (PCR) (Not Detectd) 09/12/21 09/12/21 09/12/21 Range/Units 07:35 08:22 08:22 WBC (3.8-10.6) k/uL RBC (3.80-5.40) m/uL Hgb (11.4-16.0) gm/dL Hct (34.0-46.0) % MCV (80.0-100.0) fL MCH (25.0-35.0) pg MCHC (31.0-37.0) g/dL RDW (11.5-15.5) % Plt Count (150-450) k/uL MPV Neutrophils % % Lymphocytes % % Monocytes % % Eosinophils % % Basophils % % Neutrophils # (1.3-7.7) k/uL Lymphocytes # (1.0-4.8) k/uL Monocytes # (0-1.0) k/uL Eosinophils # (0-0.7) k/uL Basophils # (0-0.2) k/uL Hypochromasia PT (9.0-12.0) sec INR (<1.2) APTT (22.0-30.0) sec Sodium (137-145) mmol/L Potassium (3.5-5.1) mmol/L Chloride (98-107) mmol/L Carbon Dioxide (22-30) mmol/L Anion Gap mmol/L BUN (7-17) mg/dL Creatinine (0.52-1.04) mg/dL Est GFR (CKD-EPI)AfAm (>60 ml/min/1.73 sqM) Est GFR (CKD-EPI)NonAf (>60 ml/min/1.73 sqM) Glucose (74-99) mg/dL Lactic Ac Sepsis Rflx Y Plasma Lactic Acid Yousif (0.7-2.0) mmol/L Calcium (8.4-10.2) mg/dL Magnesium (1.6-2.3) mg/dL Total Bilirubin (0.2-1.3) mg/dL AST (14-36) U/L ALT (4-34) U/L Alkaline Phosphatase (38-126) U/L Troponin I (0.000-0.034) ng/mL NT-Pro-B Natriuret Pep pg/mL Total Protein (6.3-8.2) g/dL Albumin (3.5-5.0) g/dL Coronavirus (PCR) Not Detected (Not Detectd) Influenza Type A RNA Not Detected (Not Detectd) Influenza Type B (PCR) Not Detected (Not Detectd) - Radiology Data Radiology results: report reviewed, image reviewed Disposition Clinical Impression: Bronchitis Disposition: HOME SELF-CARE Instructions (If sedation given, give patient instructions): Acute Bronchitis (ED) Additional Instructions: Return to the emergency department with any new, worsening, or concerning symptoms. Take both antibiotics as prescribed for 5 days. Take the Medrol Dosepak as prescribed. Take the cough medication your primary care provider prescribed for symptomatic management. Follow up with your primary care provider in 1-2 days. Prescriptions: cefUROXime axetiL [Ceftin] 500 mg PO BID 5 Days #10 tab methylPREDNISolone Dose Pack [Medrol Dose Pack] 4 mg PO DIRECTED #1 packet Doxycycline [Vibramycin] 100 mg PO BID 5 Days #10 capsule Is patient prescribed a controlled substance at d/c from ED?: No Referrals: Arian Forrest MD [Primary Care Provider] - 1-2 days
[2021-09-12 07:19] LABS: Partial Thromboplastin Time 27.2 sec (22.0-30.0); Prothrombin Time 11.2 sec (9.0-12.0)
[2021-09-12 07:27] LABS: Albumin 4.5 g/dL (3.5-5.0); Calcium 8.9 mg/dL (8.4-10.2); Total Bilirubin 0.7 mg/dL (0.2-1.3); Total Protein 8.4 g/dL (6.3-8.2)
[2021-09-12] MEDS ORDERED: guaiFENesin-DM 100-10MG/5ML 10 ML CUP PO ONE (07:30)
[2021-09-12 07:37] LABS: Potassium 4.8 mmol/L (3.5-5.1)
--- NOTE | 2021-09-12 07:51 | XR ---
EXAMINATION TYPE: XR chest 2V DATE OF EXAM: 09/12/2021 COMPARISON: Chest x-ray 05/15/2021 HISTORY: Difficulty breathing TECHNIQUE: Frontal and lateral views of the chest are obtained. FINDINGS: Instrumentation shows a similar appearance, there is a generator in left pectoral region, leads are present in the right atrium, right ventricle, coronary sinus. Cardiac mediastinal silhouett e is stable. Patient is rotated. No evident pneumothorax or pleural effusion. Bones are unchanged. IMPRESSION: Rotated exam. No definite acute abnormality. Follow-up as indicated.
[2021-09-12 10:22] VITALS: BP 116/73; PULSE 90
== END 2021-09-12 10:20 | disposition home or self-care (01) ==
LOC: EC 06:33
DX: R06.02 Shortness of breath (principal); J40 Bronchitis, not specified as acute or chronic; I11.0 Hypertensive heart disease with heart failure; I50.9 Heart failure, unspecified; M19.90 Unspecified osteoarthritis, unspecified site; Z87.891 Personal history of nicotine dependence; Z88.8 Allergy status to other drugs, medicaments and biological substances; Z88.0 Allergy status to penicillin; Z88.7 Allergy status to serum and vaccine; Z79.82 Long term (current) use of aspirin; Z79.899 Other long term (current) drug therapy; Z20.822 Contact with and (suspected) exposure to COVID-19
CPT/HCPCS: 36415; 83880; 80053; 83605; 83735; 84484; 85025; 85610; 85730; 87502; 87635; 71046; 99285; 96374; J2930

== ENCOUNTER → 2022-01-03 | Outpatient (CLI) | payer MEDICARE, BC ==
--- NOTE | 2022-01-03 14:29 | CT ---
EXAMINATION TYPE: CT ChestAbdPelvis wo con CT DLP: 1814.3 mGycm, Automated exposure control for dose reduction was used. DATE OF EXAM: 01/03/2022 2:10 PM COMPARISON: CT chest abdomen and pelvis 07/11/2021. CLINICAL INDICATION:Female, 71 years old with history of C34.11 LUNG CA; PHH, f/u lung ca Technique: Multiple axial images of the chest, abdomen, and pelvis were obtained. The administration of intravenous contrast due to inability to obtain IV. Oral contrast was administered. Two-dimensiona l coronal and sagittal reconstructions were obtained. Findings: Limited examination due to lack of intravenous contrast. CHEST: LUNGS/ PLEURA: Small right pleural effusion. No pneumothorax. No focal consolidation. Persistent rig ht upper lobe medial mass extending to the right hilar region measuring grossly 7.8 x 2.2 cm. This is not significant changed when measured with similar technique. No new greater than 5 mm pulmonary nod ules or masses. Elevated right hemidiaphragm redemonstrated. AIRWAY: Patent and unremarkable.. HEART: Persistent cardiomegaly with multilead pacemaker. No pericardial effusion. MEDIASTINUM: Persistent calcified mediastinal mass measuring 4.3 x 4.1 cm (series 3, image 12). This again has local mass effect causing anterior SVC displacement. VASCULATURE: No aortic aneurysm. Atherosclerotic calcification of the aorta. MUSCULOSKELETAL: No acute osseous abnormalities. No aggressive osseous lesions. SOFT TISSUES/LYMPH NODES: No axillary lymphadenopathy. Scar tissue medial right upper breast redemons trated. LOWER NECK: No significant findings. ABDOMEN: ABDOMEN LIVER: Unremarkable noncontrast appearance. GALLBLADDER AND BILE DUCTS: Unremarkable. PANCREAS: Unremarkable noncontrast appearance. SPLEEN: Unremarkable noncontrast appearance. ADRENAL GLANDS: Unremarkable noncontrast appearance. KIDNEYS AND URETERS: No evidence of hydronephrosis or renal calculus. PELVIS BLADDER: Unremarkable REPRODUCTIVE: Unremarkable. ABDOMEN & PELVIS STOMACH AND BOWEL: Stomach and duodenum are unremarkable. Enteric contrast reaches the mid transverse colon. No evidence of bowel obstruction. PERITONEUM: No evidence of pneumoperitoneum or free fluid. VASCULATURE: No evidence of aortic aneurysm. MUSCULOSKELETAL: No acute osseous abnormalities. No aggressive osseous lesions. Grade 1 anterolisthes is of L4 on L5 without evidence of pars defects. LYMPH NODES: No gross evidence for lymphadenopathy. SOFT TISSUE/ABDOMINAL WALL: Unremarkable IMPRESSION: 1. Stable medial right upper lobe lung mass and heterogenous calcified mediastinal mass or adenopath y from prior CT. No new or enlarging masses. 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 2. No evidence for metastatic disease within the abdomen and pelvis within limitations of a noncontr ast exam.
== END | disposition home or self-care (01) ==
LOC: RADCTMAIN 12:05
PROVIDERS: ATTEND Radiology Radiation Oncology
DX: C34.11 Malignant neoplasm of upper lobe, right bronchus or lung (principal)
CPT/HCPCS: 71250; 74176